=== PATIENT | female | born 1980 | race Caucasian/White ===

== ENCOUNTER 2019-05-08 19:01 | Inpatient (IN) | payer MEDICAID, OTHER ==
[~2019-05-08] VITALS: Ht 162.6 cm; Wt 125.0 kg
[2019-05-08] MEDS ORDERED: VANCOMYCIN 1 GM (PMX) 250 ML IVPB ONE (20:30)
[2019-05-08] MEDS ORDERED: CEFEPIME 2GM/50 ML (PMX) 50 ML IVPB STA (20:30)
[2019-05-08] MEDS ORDERED: SODIUM CHLORIDE 0.9% 1L BAG IV* STA (20:30)
[2019-05-08] MEDS ORDERED: IOHEXOL 100 ML ONE (22:10)
[2019-05-08] MEDS ORDERED: SOD CHLORIDE 0.9% 100 ML ONE (22:10)
[2019-05-08] MEDS ORDERED: ONDANSETRON 4 MG INJ ONE (22:28)
[2019-05-08] MEDS ORDERED: DEXAMETHASONE 10 MG/ML 1 ML INJ IV STA (23:11)
[2019-05-08] MEDS ORDERED: CEFTRIAXONE 2 GM/50 ML (PMX) 50 ML IVPB STA (23:11)
[2019-05-08] MEDS ORDERED: VANCOMYCIN 1 GM (PMX) 250 ML IVPB STA (23:11)
[2019-05-09] VITALS (44 sets, daily range): BP systolic 120–204; BP diastolic 70–107; PULSE 104–115; RESP 14–33; Ht 162.6 cm; Wt 125.0 kg
[2019-05-09] MEDS ORDERED: DOCUSATE SODIUM 100 MG CAP PO PRN
[2019-05-09] MEDS ORDERED: MAGNESIUM HYDROXIDE 30ML CUP PO PRN
[2019-05-09] MEDS ORDERED: NITROGLYCERIN (SL) 0.4 MG TAB SL PRN
[2019-05-09] MEDS ORDERED: ACETAMINOPHEN 325 MG TAB PO PRN
[2019-05-09] MEDS ORDERED: VANCOMYCIN IV PER PHARMACY XX SCH
[2019-05-09] MEDS ORDERED: ALBUTEROL/IPRATROPIUM (NEB) 3 ML AMP HHN PRN
[2019-05-09] MEDS ORDERED: ONDANSETRON 4 MG INJ IV PRN
[2019-05-09] MEDS ORDERED: LORAZEPAM 2 MG INJ IV PRN
[2019-05-09] MEDS ORDERED: NACL 0.9% 3 ML SYG IV SCH
[2019-05-09] MEDS: hydrALAzine 20 MG INJ IV PRN ×2 (00:26→03:20)
[2019-05-09] MEDS ORDERED: ONDANSETRON 4 MG INJ IV STA (01:54)
[2019-05-09] MEDS ORDERED: LORAZEPAM 2 MG INJ IV ONE ×2 (02:00→06:00)
[2019-05-09] MEDS ORDERED: VANCOMYCIN HCL 1.5 GM in SOD CHLORIDE 0.9% 250 ML IVPB SCH ×4 (02:00)
[2019-05-09] MEDS ORDERED: LABETALOL HCL 20MG INJ IV STA (03:12)
[2019-05-09] MEDS: niCARdipine-NS 0.1MG/ML DRIP 200 ML IV SCH ×5 (03:49→18:38)
--- NOTE | 2019-05-09 03:52 | HP ---
Date/Time of Note Date/Time of Note DATE: 05/09/19 TIME: 03:31 Assessment/Plan VTE Prophylaxis SCD applied (from Nsg): Yes Pharmacological prophylaxis: other Lines/Catheters IV Catheter Type (from Nrsg): Saline Lock Assessment/Plan Hospital Course Assessment and plan: 39-year-old female with unknown past medical history who comes in with decreased p.o. intake, knees, and vomiting for the last 3 to 4 days with signs of questionable left frontal lobe hematoma versus possible meningitis or encephalitis based on overall brain scan results. 1. Weakness and decreased p.o. intake: Again symptoms could be secondary to some kind of infectious process in the brain i.e. encephalitis or meningitis. There is also concern of left frontal hematoma. -Continue neurochecks, follow-up TSH A1c lipid panel, isolation room -Hold all anticoagulants for now, continue IV fluids and broad-spectrum antibiotics including Rocephin and vancomycin, also Decadron and rifampin have been ordered -Follow final culture results, continue IV fluids and we will also obtain ID and neurology consult for further investigation -MRI brain with and without contrast has been recommended and we will order that to be performed this morning 2. Hypertension + tachycardia: Again symptoms could be secondary to a bleeding process in the brain, or secondary to infectious process in the brain -Again we will place patient on both labetalol and hydralazine blood pressure medicines to keep the systolic blood pressure was 160 -Continue IV fluids and monitor heart rate 3. DVT prophylaxis: SCDs Result Diagram: 05/08/19192105/08/191921 Results 24hrs Laboratory Tests Test 05/08/19 19:07 05/08/19 19:22 05/08/19 19:42 05/08/19 19:43 Bedside Glucose 186 199 White Blood Count 7.1 Red Blood Count 5.73 H Hemoglobin 16.4 H Hematocrit 49.7 H Mean Corpuscular 86.7 Volume Mean Corpuscular 28.6 L Hemoglobin Mean Corpuscular 33.0 Hemoglobin Concent Red Cell 13.1 Distribution Width Platelet Count 233 Mean Platelet 11.4 H Volume Immature 0.300 Granulocytes % Neutrophils % 71.9 Lymphocytes % 20.7 Monocytes % 6.4 Eosinophils % 0.3 Basophils % 0.4 Nucleated Red 0.0 Blood Cells % Immature 0.020 Granulocytes # Neutrophils # 5.1 Lymphocytes # 1.5 Monocytes # 0.5 Eosinophils # 0.0 Basophils # 0.0 Nucleated Red 0.0 Blood Cells # Prothrombin Time 12.7 Prothrombin Time 1.0 Ratio INR International 0.94 Normalized Ratio Activated 28.[address] Time Sodium Level 135 Potassium Level 3.3 L Chloride Level 95 L Carbon Dioxide 31 Level Anion Gap 9 Blood Urea 10 Nitrogen Creatinine 0.82 Est Glomerular > 60 Filtrat Rate mL/min Glucose Level 214 Calcium Level 9.5 Total Bilirubin 1.0 Direct Bilirubin 0.00 Indirect Bilirubin 1.0 Aspartate Amino 25 Transf (AST/SGOT) Alanine 21 Aminotransferase ( ALT/SGPT) Alkaline 80 Phosphatase Troponin I 0.034 Total Protein 7.4 Albumin 4.1 Globulin 3.30 H Albumin/Globulin 1.24 Ratio Urine Color YELLOW Urine Clarity SLIGHTLY CLOUDY A Urine pH 8.0 Urine Specific 1.011 [place] Urine Ketones NEGATIVE Urine Nitrite NEGATIVE Urine Bilirubin NEGATIVE Urine Urobilinogen NEGATIVE Urine Leukocyte NEGATIVE Esterase Urine Microscopic 0 RBC Urine Microscopic 1 WBC Urine Squamous FEW Epithelial Cells Urine Hemoglobin NEGATIVE Urine Glucose 2+ H Urine Total 3+ H Protein Urine Opiates Negative Screen Urine Barbiturates Negative Urine Amphetamines Negative Screen Urine Negative Benzodiazepines Screen Urine Cocaine Negative Screen Urine Cannabinoids Negative Test 05/08/19 20:04 05/09/19 01:26 POC Venous Lactate 1.7 Prothrombin Time 13.7 Prothrombin Time 1.1 Ratio INR International 1.04 Normalized Ratio Activated 28.[address] Time Lactic Acid Level 1.6 HPI/ROS Admit Date/Time Admit Date/Time Hx of Present Illness 39-year-old female with unknown past medical history who comes in today with decreased p.o. intake. Patient's also been vomiting for the last 3 to 4 days and also been having weakness symptoms. No significant mention is obtained from the ER documentation as the patient is presently unable to provide full HPI at this time. When she came in she was found with heart rate in the 110s and she was hypotensive and received 3 L of normal saline IV fluid in the ER. Today she had a head CT performed that initially showed signs of a left frontal lobe intracranial hemorrhage, along with diffuse, pronounced white matter hypodensity in the supratentorial brain, most prominent in the frontal and parietal lobes. F indings are nonspecific, but can be seen with an infectious or inflammatory process, per radiologist. Based on this information a call was made out to the neurosurgeon for further input. Patient also received broad-spectrum antibiotics as there is also concern, based on neurosurgery assessment, that this in fact may be some kind of meningitis or encephalitis. Patient also now ordered for IV steroids and rifampin as well. Full review of systems cannot be obtained at this time. PMH/Family/Social Past Medical History Medications Current Medications IV Flush (NS 3 ml) 3 ml PER PROTOCOL IV ; Start 05/09/19 at 00:00 Ondansetron HCl (Zofran Inj) 4 mg Q6H PRN IV NAUSEA/VOMITING; Start 05/09/19 at 00:00 Acetaminophen (Tylenol Tab) 650 mg Q6H PRN PO .PAIN 1-3 OR TEMP; Start 05/09/19 at 00:00 Acetaminophen/ Hydrocodone Bitart ([place] (5/325)) 1 tab Q6H PRN PO .MOD PAIN 4- 6; Start 05/09/19 at 00:00 Morphine Sulfate (morphine) 2 mg Q4H PRN IV .SEVERE PAIN 7-10; Start 05/09/19 at 00:00 Docusate Sodium (Colace) 100 mg Q12H PRN PO .CONSTIPATION; Start 05/09/19 at 00:00 Magnesium Hydroxide (Milk Of Mag) 30 ml DAILY PRN PO .CONSTIPATION; Start 05/09/19 at 00:00 Pantoprazole (Protonix Iv) 40 mg DAILY@06 IV ; Start 05/09/19 at 06:00 Sodium Chloride 1,000 ml @ 75 mls/hr [id number] IV ; Start 05/08/19 at 23:44 Lorazepam (Ativan) 0.5 mg Q6H PRN IV ANXIETY; Start 05/09/19 at 00:00 Albuterol/ Ipratropium (Duoneb) 3 ml Q4H RESP THERAPY PRN HHN SHORTNESS OF BREATH; Start 05/09/19 at 00:00 Vancomycin HCl (Vanco Iv Per Pharmacy) VANCOMYCIN PER PHARMACY NOTE XX ; Start 05/09/19 at 00:00 Hydralazine HCl (Apresoline) 10 mg Q6H PRN IV ELEVATED BLOOD PRESSURE Last administered on 05/09/19at 03:20; Admin Dose 10 MG; Start 05/09/19 at 00:00 Ceftriaxone Sodium 50 ml @ 100 mls/hr Q24H IVPB ; Start 05/09/19 at 09:00 Nitroglycerin (Nitroglycerin (Sl Tab) 0.4 Mg) 1 tab Q5M PRN SL ANGINA; Start 05/09/19 at 00:00 Vancomycin HCl 1.5 gm/Sodium Chloride 250 ml @ 83.333 mls/ hr ONCE IVPB Last administered on 05/09/19at 02:07; Admin Dose 83.333 MLS/HR; Start 05/09/19 at 02:00; Stop 05/09/19 at 04:59 Vancomycin HCl 2 gm/Sodium Chloride 500 ml @ 125 mls/hr Q12H IVPB ; Start 05/09/19 at 14:00 Coded Allergies: No Known Allergy (Unverified , 02/03/14) Social History Smoking Status: Never smoker Exam/Review of Systems Vital Signs Vitals Vital Signs Date Temp Pulse Resp B/P (MAP) Pulse Ox O2 O2 Flow FiO2 Time Delivery Rate 05/09/19 117 26 166/133 98 Room Air 00:22 (144) 05/08/19 97.5 19:40 Exam Exam Gen: Lying in bed, lethargic Head: Atraumatic. Eyes: Normal Conjunctiva. ENT: Normal External Ears, Nose and Mouth. Neck: Full range of motion. No meningismus. Resp: Clear to auscultation bilaterally. Cardio: Tachycardic heart rate Abd: Soft, nondistended, normal bowel sounds, non tender. Ext: No lower extremity edema bilaterally Neuro: Unable to fully assess at this time given patient's lethargy DAMIEN CHOUDHARY May 09, 2019 03:41
[2019-05-09] MEDS ORDERED: RIFAMPIN 600 MG in SOD CHLORIDE 0.9% 100 ML IVPB SCH (04:00)
[2019-05-09] MEDS: CEFTRIAXONE 2 GM/50 ML (PMX) 50 ML IVPB SCH ×2 (04:22→16:34)
[2019-05-09] MEDS: DEXAMETHASONE 10 MG/ML 1 ML INJ IV SCH ×4 (05:27→21:43)
[2019-05-09] MEDS ORDERED: LEVETIRACETAM 1000 MG (PMX) 100 ML IVPB ONE (06:00)
[2019-05-09] MEDS ORDERED: FAMO20TA18 PO (06:25)
[2019-05-09] MEDS ORDERED: METF100010 PO (06:25)
[2019-05-09] MEDS ORDERED: GLIM2TAB PO (06:26)
[2019-05-09] MEDS ORDERED: LISI-471 PO (06:26)
[2019-05-09] MEDS ORDERED: HYDR100T25 PO (06:26)
[2019-05-09] MEDS: SOD CHLORIDE 0.45% 1,000 ML IV SCH ×2 (07:13→15:18)
[2019-05-09] MEDS: PANTOPRAZOLE 40 MG INJ IV SCH (07:13)
[2019-05-09] MEDS ORDERED: CEFTRIAXONE 1 GM/50 ML (PMX) 50 ML IVPB SCH (09:00)
[2019-05-09] MEDS ORDERED: HALOPERIDOL 5 MG INJ IM ONE (10:00)
--- NOTE | 2019-05-09 10:13 | QN ---
Documentation Comment She was signed out to me by Dr. Fernandez the overnight physician. The patient has been in the emergency department for 14 hours waiting for an ICU bed. The patient is altered and tachypneic. The patient was seen by neurology who has recommended interventional radiology lumbar puncture which has been ordered. The patient is critically ill at this time. She is tachypneic but her ABG is showing compensation for likely metabolic acidosis. I would avoid intubation at this time as I believe the patient is compensating with her respiratory rate. Observation Note: Time: 4 hours Family Hx: Unable to obtain Evaluation: Multiple exams showed improving symptoms and no evidence of clinical decompensation. FRANCO LARIOS MD May 09, 2019 10:13
--- NOTE | 2019-05-09 10:29 | PN ---
Date/Time of Note Date/Time of Note DATE: 05/09/19 TIME: 10:24 Assessment/Plan VTE Prophylaxis SCD applied (from Nsg): Yes Pharmacological prophylaxis: NA/contraindicated Pharm contraindication: bleeding Lines/Catheters IV Catheter Type (from Nrsg): Saline Lock Assessment/Plan Assessment/Plan 39-year-old morbidly obese woman with unknown past medical history who comes in with decreased p.o. intake, nausea and vomiting for the last 3 to 4 days with signs of questionable left frontal lobe hematoma versus possible meningitis or encephalitis based on overall brain scan results. #Lethargy #Impending respiratory failure - Due to patient's encephalopathy (GCS 8), status of boarding in the ED in an unmonitored room, will plan for intubation for impending respiratory failure #Encephalopathy - Empiric meningitis/encephalitis treatment: Vanco, ceftriaxone, acyclovir. - LP by radiology due to massive obesity. - Decadron also ordered on admission. - Pending MRI brain. - CT shows possible left frontal bleed. # Hypertension + tachycardia: - Again symptoms could be secondary to a bleeding process in the brain, or secondary to infectious process in the brain - Again we will place patient on both labetalol and hydralazine blood pressure medicines to keep the systolic blood pressure was 160 - Continue IV fluids and monitor heart rate # DVT prophylaxis: SCDs Result Diagram: 05/09/1944905/09/19449 Subjective 24 Hr Interval Summary Free Text/Dictation Patient seen while boarding in ICU. In droplet isolation room. Patient is lethargic, minimally responsive to pain. Exam/Review of Systems Exam Vitals Vital Signs Date Temp Pulse Resp B/P (MAP) Pulse Ox O2 O2 Flow FiO2 Time Delivery Rate 05/09/19 97.0 106 35 160/109 98 Nasal 4.0 10:17 (126) Cannula Exam Gen: Morbidly obese woman lying supine in [place], lethargic. Eyes: Normal Conjunctiva, closed. ENT: Normal External Ears, Nose and Mouth. Moist mucous membranes. Neck: Full range of motion. No meningismus. No lymphadenopathy. Resp: Clear to auscultation bilaterally. Cardio: Tachycardic heart rate, no murmurs appreciated. Abd: Soft, obese, nondistended, normal bowel sounds Ext: No lower extremity edema bilaterally Neuro: Opens eyes to pain only. Nonverbal. Localizes pain with both arms. GCS 8. Results Results 24hrs Laboratory Tests Test 05/08/19 19:07 05/08/19 19:22 05/08/19 19:42 05/08/19 19:43 Bedside Glucose 186 199 White Blood Count 7.1 Red Blood Count 5.73 H Hemoglobin 16.4 H Hematocrit 49.7 H Mean Corpuscular 86.7 Volume Mean Corpuscular 28.6 L Hemoglobin Mean Corpuscular 33.0 Hemoglobin Concen t Red Cell 13.1 Distribution Width Platelet Count 233 Mean Platelet 11.4 H Volume Immature 0.300 Granulocytes % Neutrophils % 71.9 Lymphocytes % 20.7 Monocytes % 6.4 Eosinophils % 0.3 Basophils % 0.4 Nucleated Red 0.0 Blood Cells % Immature 0.020 Granulocytes # Neutrophils # 5.1 Lymphocytes # 1.5 Monocytes # 0.5 Eosinophils # 0.0 Basophils # 0.0 Nucleated Red 0.0 Blood Cells # Prothrombin Time 12.7 Prothrombin Time 1.0 Ratio INR International 0.94 Normalized Ratio Activated 28.1 Partial Thrombopl ast Time Sodium Level 135 Potassium Level 3.3 L Chloride Level 95 L Carbon Dioxide 31 Level Anion Gap 9 Blood Urea 10 Nitrogen Creatinine 0.82 Est Glomerular > 60 Filtrat Rate mL/min Glucose Level 214 Calcium Level 9.5 Total Bilirubin 1.0 Direct Bilirubin 0.00 Indirect 1.0 Bilirubin Aspartate Amino 25 Transf (AST/SGOT) Alanine 21 Aminotransferase (ALT/SGPT) Alkaline 80 Phosphatase Troponin I 0.034 Total Protein 7.4 Albumin 4.1 Globulin 3.30 H Albumin/Globulin 1.24 Ratio Urine Color YELLOW Urine Clarity SLIGHTLY CLOUDY A Urine pH 8.0 Urine Specific 1.011 [place] Urine Ketones NEGATIVE Urine Nitrite NEGATIVE Urine Bilirubin NEGATIVE Urine NEGATIVE Urobilinogen Urine Leukocyte NEGATIVE Esterase Urine Microscopic 0 RBC Urine Microscopic 1 WBC Urine Squamous FEW Epithelial Cells Urine Hemoglobin NEGATIVE Urine Glucose 2+ H Urine Total 3+ H Protein Urine Opiates Negative Screen Urine Negative Barbiturates Urine Negative Amphetamines Screen Urine Negative Benzodiazepines Screen Urine Cocaine Negative Screen Urine Negative Cannabinoids Test 05/08/19 20:04 05/09/19 01:26 05/09/19 04:50 05/09/19 07:23 POC Venous 1.7 Lactate Prothrombin Time 13.7 Prothrombin Time 1.1 Ratio INR International 1.04 Normalized Ratio Activated 28.6 Partial Thrombopl ast Time Lactic Acid Level 1.6 White Blood Count 9.0 # Red Blood Count 5.90 H Hemoglobin 16.7 H Hematocrit 51.4 H Mean Corpuscular 87.1 Volume Mean Corpuscular 28.3 L Hemoglobin Mean Corpuscular 32.5 Hemoglobin Concen t Red Cell 13.1 Distribution Width Platelet Count 224 Mean Platelet 11.2 H Volume Immature 2.800 H Granulocytes % Neutrophils % 87.2 H Lymphocytes % 8.2 L Monocytes % 1.3 Eosinophils % 0.1 Basophils % 0.4 Nucleated Red 0.0 Blood Cells % Immature 0.250 H Granulocytes # Neutrophils # 7.8 H Lymphocytes # 0.7 L Monocytes # 0.1 L Eosinophils # 0.0 Basophils # 0.0 Nucleated Red 0.0 Blood Cells # Sodium Level 139 Potassium Level 3.4 L Chloride Level 105 # Carbon Dioxide 22 Level Anion Gap 12 Blood Urea 10 Nitrogen Creatinine 0.73 Est Glomerular > 60 Filtrat Rate mL/min Glucose Level 309 H Hemoglobin A1c 7.8 H Calcium Level 8.9 Phosphorus Level 2.8 Magnesium Level 1.7 Triglycerides 151 H Level Cholesterol Level 215 H LDL Cholesterol, 140 Calculated HDL Cholesterol 45 Cholesterol/HDL 4.7 Ratio Thyroid 1.920 Stimulating Hormone (TSH) Salicylates Level < 1.0 L Acetaminophen < 10.0 L Level Ethyl Alcohol < 10.0 H Level Blood Gas Blood arterial Specimen Source Arterial Blood 05/09/2019 7:26:07 Date Drawn AM Arterial Blood pH 7.443 (Temp corrected) Arterial Blood 31.0 L pCO2 (Temp correct) Arterial Blood 157.0 H pO2 (Temp corrected) Arterial Blood 20.7 L HCO3 Arterial Blood -2.0 Base Excess Arterial Blood 98.9 H Oxygen Saturation Kiran Test ACCEPTAB Arterial Blood Right Radial Gas Puncture Site Arterial 0 Blood Carboxyhemo globin Arterial Blood 0.5 Methemoglobin Blood Gas A-a O2 42.1 H Differential Oxyhemoglobin 98.4 Percent Blood Gas 37.0 Temperature Blood Gas NASAL CANNULA Modality FiO2 33.0 Blood Gas Notified Whom Blood Gas 05/09/2019 7:31:09 Notified Time AM Medications Medication Current Medications IV Flush (NS 3 ml) 3 ml PER PROTOCOL IV ; Start 05/09/19 at 00:00 Ondansetron HCl (Zofran Inj) 4 mg Q6H PRN IV NAUSEA/VOMITING; Start 05/09/19 at 00:00 Acetaminophen (Tylenol Tab) 650 mg Q6H PRN PO .PAIN 1-3 OR TEMP; Start 05/09/19 at 00:00 Acetaminophen/ Hydrocodone Bitart ([place] (5/325)) 1 tab Q6H PRN PO .MOD PAIN 4- 6; Start 05/09/19 at 00:00 Morphine Sulfate (morphine) 2 mg Q4H PRN IV .SEVERE PAIN 7-10; Start 05/09/19 at 00:00 Docusate Sodium (Colace) 100 mg Q12H PRN PO .CONSTIPATION; Start 05/09/19 at 00:00 Magnesium Hydroxide (Milk Of Mag) 30 ml DAILY PRN PO .CONSTIPATION; Start 05/09/19 at 00:00 Pantoprazole (Protonix Iv) 40 mg DAILY@06 IV Last administered on 05/09/19at 07 :13; Admin Dose 40 MG; Start 05/09/19 at 06:00 Sodium Chloride 1,000 ml @ 75 mls/hr [id number] IV Last administered on 05/09/19at 07:13; Admin Dose 75 MLS/HR; Start 05/08/19 at 23:44 Lorazepam (Ativan) 0.5 mg Q6H PRN IV ANXIETY; Start 05/09/19 at 00:00 Albuterol/ Ipratropium (Duoneb) 3 ml Q4H RESP THERAPY PRN HHN SHORTNESS OF BREATH; Start 05/09/19 at 00:00 Vancomycin HCl (Vanco Iv Per Pharmacy) VANCOMYCIN PER PHARMACY NOTE XX ; Start 05/09/19 at 00:00 Hydralazine HCl (Apresoline) 10 mg Q6H PRN IV ELEVATED BLOOD PRESSURE Last administered on 05/09/19at 03:20; Admin Dose 10 MG; Start 05/09/19 at 00:00 Nitroglycerin (Nitroglycerin (Sl Tab) 0.4 Mg) 1 tab Q5M PRN SL ANGINA; Start 05/09/19 at 00:00 Vancomycin HCl 2 gm/Sodium Chloride 500 ml @ 125 mls/hr Q12H IVPB ; Start 05/09/19 at 14:00 Nicardipine HCl 200 ml @ 0 mls/hr TITRATE IV Last administered on 05/09/19at 08:58; Admin Dose 100 MLS/HR; Start 05/09/19 at 04:00 Ceftriaxone Sodium 50 ml @ 100 mls/hr Q12H IVPB Last administered on 05/09/19at 04:22; Admin Dose 100 MLS/HR; Start 05/09/19 at 03:30 Dexamethasone (Decadron) 10 mg Q6H IV Last administered on 05/09/19at 09:01; Admin Dose 10 MG; Start 05/09/19 at 04:00; Stop 05/10/19 at 03:30 Labetalol HCl (Labetalol) 10 mg Q6H PRN IV sys bp > 160; Start 05/09/19 at 05:00 DAVID QUIÑONEZ MD May 09, 2019 10:29
[2019-05-09] MEDS ORDERED: PROPOFOL 100 ML IV STA (10:42)
--- NOTE | 2019-05-09 10:53 | PN ---
Date/Time of Note Date/Time of Note DATE: 05/09/19 TIME: 10:53 Copies To: Assessment/Plan Date of progress note: 05/08/2019 Requesting physician: Dr. Fernandez with the emergency department I was contacted by Dr. Fernandez regarding this patient who is a 39-year-old female with unclear past medical history. Apparently the patient for the past few days has not been "her normal self." She has not been brought to the emergency department for altered level of consciousness. As part of workup the patient was found to have a small left frontal hematoma and neurosurgery is being consulted for that. There is no reported history of trauma to her head, loss of consciousness, convulsions or seizures. Dr. Fernandez with the emergency department asked me to review the patient's CT of the head. The CT of the head reveals a relatively small left frontal hematoma without significant focal mass- effect or midline shift. More significantly the patient has diffuse hyperdensity involving the subcortical white matter bilaterally as well as the brainstem of unknown etiology. There is no evidence of hydrocephalus. The basal cisterns are open. At my request, a CT angiogram of the head has also been done that does not show any evidence of an underlying vascular lesion such as an AVM. In light of the above findings, there is no acute neurosurgical intervention indicated. However, I would recommend urgent neurology consultation for further evaluation and workup for possible underlying infection or inflammatory condition. Dr. Wheatley also agrees with this plan. FABRICE DELATORRE MD May 09, 2019 10:53
[2019-05-09] MEDS ORDERED: FENTAnyl (DRIP) 1000 mcg/100mL 100 ML IV ONE (11:00)
[2019-05-09] MEDS ORDERED: SUCCINYLCHOLINE CHLORIDE 100 MG/5 ML SYG IV ONE (11:00)
[2019-05-09] MEDS ORDERED: ETOMIDATE 20 MG INJ IV ONE (11:00)
[2019-05-09] MEDS: ACYCLOVIR 600 MG in DEXTROSE 5% 100 ML IVPB SCH ×2 (12:01→18:37)
--- NOTE | 2019-05-09 12:09 | CONSI ---
Assessment/Plan Assessment/Plan Assessment/Plan (Recall) 39 F c/ reported Hx of DM2, who presents for evaluation of multiple complaints, including lethargy and GI Sx.. Mildly hypothermic on presentation.. 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 Head CT is notable for a left frontal hyperdensity, suspicious for hemor rhage...and diffuse white matter hypointensity of uncertain significance. CTA is unremarkable. P: LP for CSF evaluation Broad spectrum antimicrobial coverage pending the above EEG to evaluate for epileptiform activity; hold Keppra for now Ativan iv prn prolonged seizure > 5 min Limit other sedating medications where possible MRI brain when medically able Add B1, B12, ammonia Aggressive BP control to goal SBP < 160 Hold antiplatelets/anticoagulants in the short-term Other management and supportive care per primary Will follow clinically Consultation Date/Type/Reason Admit Date/Time Type of Consult Neurology Reason for Consultation ams Requesting Provider: DAMIEN CHOUDHARY Date/Time of Note DATE: 05/09/19 TIME: 11:59 Hx of Present Illness Patient is unable to contribute a Hx.. It is elsewhere noted: 39-year-old female with unknown past medical history who comes in today with decreased p.o. intake. Patient's also been vomiting for the last 3 to 4 days and also been having weakness symptoms. No significant mention is obtained from the ER documentation as the patient is presently unable to provide full HPI at this time. When she came in she was found with heart rate in the 110s and she was hypotensive and received 3 L of normal saline IV fluid in the ER. Today she had a head CT performed that initially showed signs of a left frontal lobe intracranial hemorrhage, along with diffuse, pronounced white matter hypodensity in the supratentorial brain, most prominent in the frontal and parietal lobes. Findings are nonspecific, but can be seen with an infectious or inflammatory process, per radiologist. Based on this information a call was made out to the neurosurgeon for further input. Patient also received broad-spectrum antib iotics as there is also concern, based on neurosurgery assessment, that this in fact may be some kind of meningitis or encephalitis. Patient also now ordered for IV steroids and rifampin as well. Full review of systems cannot be obtained at this time. Limited by ams Objective Exam Vitals Vital Signs Date Temp Pulse Resp B/P (MAP) Pulse Ox O2 O2 Flow FiO2 Time Delivery Rate 05/09/19 109 21 163/83 98 Nasal 4.0 11:46 (109) Cannula 05/09/19 100 11:08 05/09/19 97.0 10:17 Exam PE: Gen Appearance: No Apparent Distress HEENT: Diaphoretic... Cardiovascular: Tachycardic Abdomen: Soft Extremities: Dry NE: The patient was obtunded and nonverbal. Cranial nerve examination was limited by mental status. Pupils were equal and reactive to light. There was no afferent pupillary defect. Funduscopic examination was limited. Face was grossly symmetric, w/ present corneal and cough reflexes. Tone was normal. Muscle bulk was normal. I did not see fasciculations. The patient withdrew to noxious stimulation x 4. Coordination and gait testing was limited by mental status. Arm and leg reflexes were within normal limits and symmetric. Skinner's sign was absent. Plantar responses were flexor. Results Result Diagram: 05/09/19 0450 05/09/19 0450 Results 24hrs Laboratory Tests Test 05/08/19 19:07 05/08/19 19:22 05/08/19 19:42 05/08/19 19:43 Bedside Glucose 186 199 White Blood 7.1 Count Red Blood Count 5.73 H Hemoglobin 16.4 H Hematocrit 49.7 H Mean Corpuscular 86.7 Volume Mean Corpuscular 28.6 L Hemoglobin Mean Corpuscular 33.0 Hemoglobin Dominique nt Red Cell 13.1 Distribution Width Platelet Count 233 Mean Platelet 11.4 H Volume Immature 0.300 Granulocytes % Neutrophils % 71.9 Lymphocytes % 20.7 Monocytes % 6.4 Eosinophils % 0.3 Basophils % 0.4 Nucleated Red 0.0 Blood Cells % Immature 0.020 Granulocytes # Neutrophils # 5.1 Lymphocytes # 1.5 Monocytes # 0.5 Eosinophils # 0.0 Basophils # 0.0 Nucleated Red 0.0 Blood Cells # Prothrombin Time 12.7 Prothrombin Time 1.0 Ratio INR 0.94 International Normalized Ratio Activated 28.1 Partial Thrombop last Time Sodium Level 135 Potassium Level 3.3 L Chloride Level 95 L Carbon Dioxide 31 Level Anion Gap 9 Blood Urea 10 Nitrogen Creatinine 0.82 Est Glomerular > 60 Filtrat Rate mL/min Glucose Level 214 Calcium Level 9.5 Total Bilirubin 1.0 Direct Bilirubin 0.00 Indirect 1.0 Bilirubin Aspartate Amino 25 Transf (AST/SGOT ) Alanine 21 Aminotransferase (ALT/SGPT) Alkaline 80 Phosphatase Troponin I 0.034 Total Protein 7.4 Albumin 4.1 Globulin 3.30 H Albumin/Globulin 1.24 Ratio Urine Color YELLOW Urine Clarity SLIGHTLY CLOUDY A Urine pH 8.0 Urine Specific 1.011 [place] Urine Ketones NEGATIVE Urine Nitrite NEGATIVE Urine Bilirubin NEGATIVE Urine NEGATIVE Urobilinogen Urine Leukocyte NEGATIVE Esterase Urine 0 Microscopic RBC Urine 1 Microscopic WBC Urine Squamous FEW Epithelial Cells Urine Hemoglobin NEGATIVE Urine Glucose 2+ H Urine Total 3+ H Protein Urine Opiates Negative Screen Urine Negative Barbiturates Urine Negative Amphetamines Screen Urine Negative Benzodiazepines Screen Urine Cocaine Negative Screen Urine Negative Cannabinoids Test 05/08/19 20:04 05/09/19 01:26 05/09/19 04:50 05/09/19 07:23 POC Venous 1.7 Lactate Prothrombin Time 13.7 Prothrombin Time 1.1 Ratio INR 1.04 International Normalized Ratio Activated 28.6 Partial Thrombop last Time Lactic Acid 1.6 Level White Blood 9.0 # Count Red Blood Count 5.90 H Hemoglobin 16.7 H Hematocrit 51.4 H Mean Corpuscular 87.1 Volume Mean Corpuscular 28.3 L Hemoglobin Mean Corpuscular 32.5 Hemoglobin Dominique nt Red Cell 13.1 Distribution Width Platelet Count 224 Mean Platelet 11.2 H Volume Immature 2.800 H Granulocytes % Neutrophils % 87.2 H Lymphocytes % 8.2 L Monocytes % 1.3 Eosinophils % 0.1 Basophils % 0.4 Nucleated Red 0.0 Blood Cells % Immature 0.250 H Granulocytes # Neutrophils # 7.8 H Lymphocytes # 0.7 L Monocytes # 0.1 L Eosinophils # 0.0 Basophils # 0.0 Nucleated Red 0.0 Blood Cells # Sodium Level 139 Potassium Level 3.4 L Chloride Level 105 # Carbon Dioxide 22 Level Anion Gap 12 Blood Urea 10 Nitrogen Creatinine 0.73 Est Glomerular > 60 Filtrat Rate mL/min Glucose Level 309 H Hemoglobin A1c 7.8 H Calcium Level 8.9 Phosphorus Level 2.8 Magnesium Level 1.7 Triglycerides 151 H Level Cholesterol 215 H Level LDL Cholesterol, 140 Calculated HDL Cholesterol 45 Cholesterol/HDL 4.7 Ratio Thyroid 1.920 Stimulating Hormone (TSH) Salicylates < 1.0 L Level Acetaminophen < 10.0 L Level Ethyl Alcohol < 10.0 H Level Blood Gas Blood arterial Specimen Source Arterial Blood 05/09/2019 7:26: Date Drawn 07 AM Arterial Blood 7.443 pH (Temp corrected) Arterial Blood 31.0 L pCO2 (Temp correct) Arterial Blood 157.0 H pO2 (Temp corrected) Arterial Blood 20.7 L HCO3 Arterial Blood -2.0 Base Excess Arterial Blood 98.9 H Oxygen Saturatio n Kiran Test ACCEPTAB Arterial Blood Right Radial Gas Puncture Site Arterial 0 Blood Carboxyhem oglobin Arterial Blood 0.5 Methemoglobin Blood Gas A-a O2 42.1 H Differential Oxyhemoglobin 98.4 Percent Blood Gas 37.0 Temperature Blood Gas NASAL CANNULA Modality FiO2 33.0 Blood Gas SM Notified Whom Blood Gas 05/09/2019 7:31: Notified Time 09 AM Test 05/09/19 10:42 05/09/19 11:35 Blood Gas Blood arterial Specimen Source Arterial Blood 05/09/2019 11:17 Date Drawn :50 AM Arterial Blood 7.434 pH (Temp corrected) Arterial Blood 31.2 L pCO2 (Temp correct) Arterial Blood 438.3 H pO2 (Temp corrected) Arterial Blood 20.4 L HCO3 Arterial Blood -2.5 Base Excess Arterial Blood 99.9 H Oxygen Saturatio n Kiran Test ACCEPTAB Arterial Blood Right Radial Gas Puncture Site Arterial 0.4 Blood Carboxyhem oglobin Arterial Blood 0.5 Methemoglobin Blood Gas A-a O2 243.5 H Differential Oxyhemoglobin 99.0 Percent Blood Gas 37.0 Temperature Blood Gas 20.0 Respiration Rate Blood Gas Actual 36 Respiration Rate Blood Gas VENT - AC Modality FiO2 100.0 Blood Gas Tidal 500.0 Volume Blood Gas Low 5.0 PEEP Setting Blood Gas RT Notified Whom Blood Gas 05/09/2019 11:28 Notified Time :26 AM Bedside Glucose 373 H Past Medical History reviewed Home Meds Reported Medications Lisinopril* (Lisinopril*) 20 Mg Tablet, 20 MG PO BID, #30 TAB 05/09/19 Hydralazine Hcl* (Hydralazine Hcl*) 100 Mg Tablet, 100 MG PO Q8, #90 TAB 05/09/19 Glimepiride* (Glimepiride*) 2 Mg Tablet, 2 MG PO WITH BREAKFAST, TAB 05/09/19 Metformin Hcl* (Metformin Hcl*) 1,000 Mg Tablet, 1000 MG PO WITH BREAKFAST DINNE, #60 TAB 05/09/19 Famotidine* (Famotidine*) 20 Mg Tablet, 20 MG PO BID, #60 TAB 05/09/19 Medications Current Medications IV Flush (NS 3 ml) 3 ml PER PROTOCOL IV ; Start 05/09/19 at 00:00 Ondansetron HCl (Zofran Inj) 4 mg Q6H PRN IV NAUSEA/VOMITING; Start 05/09/19 at 00:00 Acetaminophen (Tylenol Tab) 650 mg Q6H PRN PO .PAIN 1-3 OR TEMP; Start 05/09/19 at 00:00 Acetaminophen/ Hydrocodone Bitart ([place] (5/325)) 1 tab Q6H PRN PO .MOD PAIN 4- 6; Start 05/09/19 at 00:00 Morphine Sulfate (morphine) 2 mg Q4H PRN IV .SEVERE PAIN 7-10; Start 05/09/19 at 00:00 Docusate Sodium (Colace) 100 mg Q12H PRN PO .CONSTIPATION; Start 05/09/19 at 00:00 Magnesium Hydroxide (Milk Of Mag) 30 ml DAILY PRN PO .CONSTIPATION; Start 05/09/19 at 00:00 Pantoprazole (Protonix Iv) 40 mg DAILY@06 IV Last administered on 05/09/19at 07:13; Admin Dose 40 MG; Start 05/09/19 at 06:00 Sodium Chloride 1,000 ml @ 75 mls/hr [id number] IV Last administered on 05/09/19at 07:13; Admin Dose 75 MLS/HR; Start 05/08/19 at 23:44 Albuterol/ Ipratropium (Duoneb) 3 ml Q4H RESP THERAPY PRN HHN SHORTNESS OF BREATH; Start 05/09/19 at 00:00 Vancomycin HCl (Vanco Iv Per Pharmacy) VANCOMYCIN PER PHARMACY NOTE XX ; Start 05/09/19 at 00:00 Hydralazine HCl (Apresoline) 10 mg Q6H PRN IV ELEVATED BLOOD PRESSURE Last administered on 05/09/19at 03:20; Admin Dose 10 MG; Start 05/09/19 at 00:00 Nitroglycerin (Nitroglycerin (Sl Tab) 0.4 Mg) 1 tab Q5M PRN SL ANGINA; Start 05/09/19 at 00:00 Vancomycin HCl 2 gm/Sodium Chloride 500 ml @ 125 mls/hr Q12H IVPB ; Start 05/09/19 at 14:00 Nicardipine HCl 200 ml @ 0 mls/hr TITRATE IV Last administered on 05/09/19at 08:58; Admin Dose 100 MLS/HR; Start 05/09/19 at 04:00 Ceftriaxone Sodium 50 ml @ 100 mls/hr Q12H IVPB Last administered on 05/09/19at 04:22; Admin Dose 100 MLS/HR; Start 05/09/19 at 03:30 Dexamethasone (Decadron) 10 mg Q6H IV Last administered on 05/09/19at 09:01; Admin Dose 10 MG; Start 05/09/19 at 04:00; Stop 05/10/19 at 03:30 Labetalol HCl (Labetalol) 10 mg Q6H PRN IV sys bp > 160; Start 05/09/19 at 05:00 Acyclovir 600 mg/ Dextrose 100 ml @ 100 mls/hr Q8H IVPB ; Start 05/09/19 at 10:30 Propofol 100 ml @ 3.75 mls/hr ONCE STAT IV Last administered on 05/09/19at 10:59; Admin Dose 3.75 MLS/HR; Start 05/09/19 at 10:42; Stop 05/10/19 at 13:21 Fentanyl 100 ml @ 5 mls/hr CONTINUOUS DRIP ONCE IV ; Start 05/09/19 at 11:00; Stop 05/10/19 at 06:59 Allergies: Coded Allergies: No Known Allergy (Unverified , 05/09/19) Social History Smoking Status: Never smoker JOSÉ TORO May 09, 2019 12:09
[2019-05-09] MEDS ORDERED: VANCOMYCIN HCL 2 GM in SOD CHLORIDE 0.9% 500 ML IVPB SCH (14:00)
[2019-05-09] MEDS: VANCOMYCIN HCL 2 GM in SOD CHLORIDE 0.9% 500 ML IVPB SCH (15:42)
--- NOTE | 2019-05-09 15:55 | CONS ---
DATE OF ADMISSION: 05/08/2019 DATE OF CONSULTATION: 05/09/2019 TYPE OF CONSULTATION: Infectious Disease. REASON FOR CONSULTATION: Antibiotic management. HISTORY OF PRESENT ILLNESS: Genet Foley is a 39-year-old female with a known past medic al history who comes in with decreased oral intake as well as vomiting for the last 3 or 4 days. She feels very weak. She was found to have a heart rate in the 110s, was hypotensive and received 3 lit ers of normal saline in the ER. She had a CT scan performed of her head, which showed signs of the l eft frontal lobe intracranial hemorrhage along with diffuse pronounced white matter hypodensity in th e supratentorial brain, most prominent in the frontal and parietal lobes. Findings are nonspecific b ut can be seen with an infectious or inflammatory process, per radiologist. Based on this, a call wa s made to neurosurgeon for further input. The patient was also started on broad-spectrum antibiotic therapy. On admission, white count was 7.1, H and H of 16.4 and 49.7, platelet count 233,000. BUN a nd creatinine 10/0.82, and the glucose was 214. So, the patient has weakness and decreased oral inta ke. We have to rule out an infectious process in the brain, encephalitis or meningitis. The patient was seen by Dr. Parkinson, neurosurgery. She was found to have a small left frontal hematoma. There is no reported history of trauma, loss of consciousness, convulsions or seizures. CT scan of the head reveals a relatively small left frontal hematoma without significant focal mass effect or midline yasemin ft. More significantly, the patient has diffuse hypodensity involving the subcortical white matter b ilaterally as well as the brainstem of unknown etiology. There is no evidence of hydrocephalus. The basal cisterns are open. A CT angiogram of the head has also been done, does not show any evidence of any underlying vascular lesion such as an AVM. There is no acute neurosurgical intervention indic ated. He recommended urgent neurology consultation for further evaluation and workup of underlying d isease. The patient was seen by Dr. Laurent in neurology. The patient was noted to be obtunded and no nverbal. Pupils were equal, round, reactive to light. White count was 9000 as noted previously with 72% neutrophils. Urinalysis was negative. IMPRESSION AND PLAN: The patient was started on vancomycin and ceftriaxone for possible meningitis. The patient also had IV steroids and rifampin added to her regimen. At this point, it is unclear wh at the etiology of her problem is, and she may require a lumbar puncture in order to delineate what i s going on. Her toxicology screen was fairly negative. [facility] as well as to Dr. Parkinson and Dr. Laurent. Dictated By: CARLOS GORDON MD, JD/ALISHA Conf#: [id number] DID#: [id number]
[2019-05-09] MEDS ORDERED: GLUCAGON 1 MG INJ IM PRN (17:00)
[2019-05-09] MEDS ORDERED: GLUCOSE GEL 15 GRAM TUBE BUCCAL PRN (17:00)
[2019-05-09] MEDS ORDERED: GLUCOSE GEL 15 GRAM TUBE PO PRN ×2 (17:00)
[2019-05-09] MEDS ORDERED: DEXTROSE 50% 50 ML SYRINGE IV PRN ×2 (17:00)
[2019-05-09] MEDS: PROPOFOL 100 ML IV SCH ×3 (17:06→23:47)
[2019-05-09] MEDS: INSULIN ASPART [NOVOLOG] 3 ML PEN SC SCH ×2 (18:29→21:54)
[2019-05-10] VITALS (81 sets, daily range): BP systolic 131–203; BP diastolic 63–104; PULSE 100–127; RESP 15–35
[2019-05-10] MEDS: INSULIN ASPART [NOVOLOG] 3 ML PEN SC SCH ×6 (01:10→21:29)
[2019-05-10] MEDS: ACYCLOVIR 600 MG in DEXTROSE 5% 100 ML IVPB SCH ×2 (01:59→11:21)
[2019-05-10] MEDS: niCARdipine-NS 0.1MG/ML DRIP 200 ML IV SCH ×5 (02:01→18:05)
[2019-05-10] MEDS: CEFTRIAXONE 2 GM/50 ML (PMX) 50 ML IVPB SCH ×2 (03:20→15:28)
[2019-05-10] MEDS: VANCOMYCIN HCL 2 GM in SOD CHLORIDE 0.9% 500 ML IVPB SCH (04:07)
[2019-05-10] MEDS: PROPOFOL 100 ML IV SCH ×4 (04:44→18:17)
[2019-05-10] MEDS: PANTOPRAZOLE 40 MG INJ IV SCH (05:57)
--- NOTE | 2019-05-10 06:45 | EEG ---
EEG NOTE Report Details DATE OF TEST: 05/09/2019 HISTORY: The patient is a 39-year-old F who presents with altered mental status. This EEG is requested to evaluate for seizures. SEDATION: ? CONDITIONS OF RECORDING: This EEG was recorded digitally on the [employer] machine, using the International 10-20 System of electrodes plus anterior temporals and [place]. STATES SAMPLED: Lethargic. FINDINGS: The background is discontinuous though grossly symmetric...predominated by yi ymorphic theta activity. The normal [id number] frequency-amplitude gradient was absent. Photic stimulation does not elicit any definite driving responses or epileptiform discharges. Hyperventilation was not performed. No asymmetries, focal abnormalities or epileptiform discharges were seen. IMPRESSION: Abnormal electroencephalogram due to: diffuse slowing. COMMENT: The slowing of the background indicates diffuse cortical dysfunction of nonspecific etiology. JOSÉ TORO May 10, 2019 06:45
[2019-05-10] MEDS: POTASSIUM CHLORIDE 100 ML IVPB SCH ×2 (09:21→11:23)
--- NOTE | 2019-05-10 09:44 | CONS ---
Assessment/Plan Assessment/Plan Assessment/Plan (Daily) Chest x-ray showing cardiomegaly with pulmonary edema. Difficult to rule out some element of pneumonia. Ventilator settings; assist control of 16, tidal volume 500, PEEP of 5, 30% FiO2. Patient is currently on Cardene drip at 12.5 A/R: 1- intracranial bleed, likely hypertensive in etiology 2- HTN 3- pulmonary edema 4- Aspiration pneumonia? 5- Meningitis? 6- Acute renal injury 7- thrombocytopenia continue current supportive care. F/u CXR in 24 hours. Neurosurgical evaluation pending. Monitor renal function. LP by IR. Prognosis is guarded. 40 min critical care time spent evaluating the patient. Consultation Date/Type/Reason Admit Date/Time Date of Consultation: May 10, 2019 Type of Consult Pulmonary/critical care Patient is a 39-year-old lady who came into the hospital with complaints of nausea vomiting going on for the last 2 days with headache. Upon evaluation patient was extremely hypertensive then developed respiratory failure requiring intubation. Emergent CT imaging of the head was done which is showing intracranial hemorrhage. Patient has remained completely unresponsive. Was started on propofol drip for tachypnea. Past medical history; 1. Hypertension. Medications; reviewed. Allergies; none. Social history, family history, occupational history not available. Review of system; unable to be obtained. General exam; young female, orally intubated, sedated, currently in no distress. Date/Time of Note DATE: 05/10/19 TIME: 09:36 Past Medical History Home Meds Reported Medications Lisinopril* (Lisinopril*) 20 Mg Tablet, 20 MG PO BID, #30 TAB 05/09/19 Hydralazine Hcl* (Hydralazine Hcl*) 100 Mg Tablet, 100 MG PO Q8, #90 TAB 05/09/19 Glimepiride* (Glimepiride*) 2 Mg Tablet, 2 MG PO WITH BREAKFAST, TAB 05/09/19 Metformin Hcl* (Metformin Hcl*) 1,000 Mg Tablet, 1000 MG PO WITH BREAKFAST DINNE, #60 TAB 05/09/19 Famotidine* (Famotidine*) 20 Mg Tablet, 20 MG PO BID, #60 TAB 05/09/19 Medications Current Medications IV Flush (NS 3 ml) 3 ml PER PROTOCOL IV ; Start 05/09/19 at 00:00 Ondansetron HCl (Zofran Inj) 4 mg Q6H PRN IV NAUSEA/VOMITING; Start 05/09/19 at 00:00 Acetaminophen (Tylenol Tab) 650 mg Q6H PRN PO .PAIN 1-3 OR TEMP; Start 05/09/19 at 00:00 Acetaminophen/ Hydrocodone Bitart ([place] (5/325)) 1 tab Q6H PRN PO .MOD PAIN 4- 6; Start 05/09/19 at 00:00 Morphine Sulfate (morphine) 2 mg Q4H PRN IV .SEVERE PAIN 7-10; Start 05/09/19 at 00:00 Docusate Sodium (Colace) 100 mg Q12H PRN PO .CONSTIPATION; Start 05/09/19 at 00:00 Magnesium Hydroxide (Milk Of Mag) 30 ml DAILY PRN PO .CONSTIPATION; Start 05/09/19 at 00:00 Pantoprazole (Protonix Iv) 40 mg DAILY@06 IV Last administered on 05/10/19at 05:57; Admin Dose 40 MG; Start 05/09/19 at 06:00 Sodium Chloride 1,000 ml @ 75 mls/hr [id number] IV Last administered on 05/09/19at 15:18; Admin Dose 75 MLS/HR; Start 05/08/19 at 23:44 Albuterol/ Ipratropium (Duoneb) 3 ml Q4H RESP THERAPY PRN HHN SHORTNESS OF BREATH; Start 05/09/19 at 00:00 Vancomycin HCl (Vanco Iv Per Pharmacy) VANCOMYCIN PER PHARMACY NOTE XX ; Start 05/09/19 at 00:00 Hydralazine HCl (Apresoline) 10 mg Q6H PRN IV ELEVATED BLOOD PRESSURE Last administered on 05/09/19at 03:20; Admin Dose 10 MG; Start 05/09/19 at 00:00 Nitroglycerin (Nitroglycerin (Sl Tab) 0.4 Mg) 1 tab Q5M PRN SL ANGINA; Start 05/09/19 at 00:00 Ceftriaxone Sodium 50 ml @ 100 mls/hr Q12H IVPB Last administered on 05/10/19at 03:20; Admin Dose 100 MLS/HR; Start 05/09/19 at 03:30 Labetalol HCl (Labetalol) 10 mg Q6H PRN IV sys bp > 160; Start 05/09/19 at 05:00 Acyclovir 600 mg/ Dextrose 100 ml @ 100 mls/hr Q8H IVPB Last administered on 05/10/19at 01:59; Admin Dose 100 MLS/HR; Start 05/09/19 at 10:30 Nicardipine HCl 200 ml @ 0 mls/hr TITRATE IV Last administered on 05/10/19at 07:48; Admin Dose 75 MLS/HR; Start 05/09/19 at 14:30 Vancomycin HCl 2 gm/Sodium Chloride 500 ml @ 125 mls/hr Q12H IVPB Last administered on 05/10/19at 04:07; Admin Dose 125 MLS/HR; Start 05/09/19 at 16:00 Insulin Aspart (Novolog Insulin Pen) NOVOLOG *MODERATE* ALGORI... Q4 SC Last administered on 05/10/19at 09:26; Admin Dose 4 UNIT; Start 05/09/19 at 18:00 Miscellaneous Information 1 ea NOTE XX ; Start 05/09/19 at 17:00 Glucose (Glutose) 15 gm Q15M PRN PO DECREASED GLUCOSE; Start 05/09/19 at 17:00 Glucose (Glutose) 22.5 gm Q15M PRN PO DECREASED GLUCOSE; Start 05/09/19 at 17:00 Dextrose (D50w Syringe) 25 ml Q15M PRN IV DECREASED GLUCOSE; Start 05/09/19 at 17:00 Dextrose (D50w Syringe) 50 ml Q15M PRN IV DECREASED GLUCOSE; Start 05/09/19 at 17:00 Glucagon (Glucagen) 1 mg Q15M PRN IM DECREASED GLUCOSE; Start 05/09/19 at 17:00 Glucose (Glutose) 15 gm Q15M PRN BUCCAL DECREASED GLUCOSE; Start 05/09/19 at 17:00 Propofol 100 ml @ 3.75 mls/hr Q12H IV Last administered on 05/10/19at 04:44; Admin Dose 22.5 MLS/HR; Start 05/09/19 at 17:00 Miscellaneous Information (*Rx Drug Level Order Reminder*) VANCO TR LEVEL P RIOR... 1500 ONCE XX ; Start 05/10/19 at 15:00; Stop 05/10/19 at 15:01 Potassium Chloride 100 ml @ 50 mls/hr Q2H IVPB Last administered on 05/10/19at 09:21; Admin Dose 50 MLS/HR; Start 05/10/19 at 09:00; Stop 05/10/19 at 12:59 Allergies: Coded Allergies: No Known Allergy (Unverified , 05/09/19) Social History Smoking Status: Unknown if ever smoked Exam/Review of Systems Exam Vitals Vital Signs Date Temp Pulse Resp B/P (MAP) Pulse Ox O2 O2 Flow FiO2 Time Delivery Rate 05/10/19 22 179/86 98 Mechanical 08:15 (117) Ventilator 05/10/19 99.2 126 08:00 05/10/19 30 08:00 05/09/19 4.0 11:46 Intake and Output 05/09/19 05/09/19 05/10/19 1515:00 23:00 07:00 IntakeIntake Total 256.875 ml 1889.80 ml 1537.50 ml OutputOutput Total 100 ml 300 ml 220 ml BalanceBalance 156.875 ml 1589.80 ml 1317.50 ml Exam H EENT exam; supple neck, no JVD. No lymphadenopathy. Midline trachea. No thyromegaly. Orally intubated. Patient has fair dentition. There is bilateral downward gaze. Pupils are small bilaterally. Chest exam; clear to auscultation. S1-S2 audible, no murmurs. Regular rhythm. Abdomen exam; soft, no organomegaly. Bowel sounds audible. Extremity exam; no peripheral edema. Pulses 1+. MOLDER SWEEP exam; patient sedated but exhibiting occasional posturing. Results Result Diagram: 05/10/19 0537 05/10/19 0537 Results 24hrs Laboratory Tests Test 05/09/19 10:42 05/09/19 11:35 05/09/19 12:35 05/09/19 16:22 Blood Gas Blood arterial Specimen Source Arterial Blood 05/09/2019 11:17: Date Drawn 50 AM Arterial Blood pH 7.434 (Temp corrected) Arterial Blood 31.2 L pCO2 (Temp correct) Arterial Blood 438.3 H pO2 (Temp corrected) Arterial Blood 20.4 L HCO3 Arterial Blood -2.5 Base Excess Arterial Blood 99.9 H Oxygen Saturation Kiran Test ACCEPTAB Arterial Blood Right Radial Gas Puncture Site Arterial 0.4 Blood Carboxyhemo globin Arterial Blood 0.5 Methemoglobin Blood Gas A-a O2 243.5 H Differential Oxyhemoglobin 99.0 Percent Blood Gas 37.0 Temperature Blood Gas 20.0 Respiration Rate Blood Gas Actual 36 Respiration Rate Blood Gas VENT - AC Modality FiO2 100.0 Blood Gas Tidal 500.0 Volume Blood Gas Low 5.0 PEEP Setting Blood Gas RT Notified Whom Blood Gas 05/09/2019 11:28: Notified Time 26 AM Bedside Glucose 373 H 294 H Ammonia < 9 L Vitamin B12 Level 822 Test 05/09/19 18:16 05/09/19 21:35 05/10/19 01:05 05/10/19 05:37 Bedside Glucose 285 H 249 H 206 White Blood Count 15.9 #H Red Blood Count 5.12 Hemoglobin 14.7 Hematocrit 44.2 Mean Corpuscular 86.3 Volume Mean Corpuscular 28.7 L Hemoglobin Mean Corpuscular 33.3 Hemoglobin Concen t Red Cell 13.5 Distribution Width Platelet Count 181 Mean Platelet 11.5 H Volume Immature 0.600 H Granulocytes % Neutrophils % 91.8 H Lymphocytes % 5.0 L Monocytes % 2.5 Eosinophils % 0.0 Basophils % 0.1 Nucleated Red 0.0 Blood Cells % Immature 0.100 H Granulocytes # Neutrophils # 14.6 H Lymphocytes # 0.8 Monocytes # 0.4 Eosinophils # 0.0 Basophils # 0.0 Nucleated Red 0.0 Blood Cells # Sodium Level 138 Potassium Level 3.2 L Chloride Level 105 Carbon Dioxide 24 Level Anion Gap 9 Blood Urea 23 #H Nitrogen Creatinine 1.39 H Est Glomerular 42 L Filtrat Rate mL/min Glucose Level 209 # Calcium Level 9.0 Magnesium Level 1.8 Test 05/10/19 05:45 05/10/19 08:58 Bedside Glucose 196 190 Medications Medication Current Medications IV Flush (NS 3 ml) 3 ml PER PROTOCOL IV ; Start 05/09/19 at 00:00 Ondansetron HCl (Zofran Inj) 4 mg Q6H PRN IV NAUSEA/VOMITING; Start 05/09/19 at 00:00 Acetaminophen (Tylenol Tab) 650 mg Q6H PRN PO .PAIN 1-3 OR TEMP; Start 05/09/19 at 00:00 Acetaminophen/ Hydrocodone Bitart ([place] (5/325)) 1 tab Q6H PRN PO .MOD PAIN 4- 6; Start 05/09/19 at 00:00 Morphine Sulfate (morphine) 2 mg Q4H PRN IV .SEVERE PAIN 7-10; Start 05/09/19 at 00:00 Docusate Sodium (Colace) 100 mg Q12H PRN PO .CONSTIPATION; Start 05/09/19 at 00:00 Magnesium Hydroxide (Milk Of Mag) 30 ml DAILY PRN PO .CONSTIPATION; Start 05/09/19 at 00:00 Pantoprazole (Protonix Iv) 40 mg DAILY@06 IV Last administered on 05/10/19at 05:57; Admin Dose 40 MG; Start 05/09/19 at 06:00 Sodium Chloride 1,000 ml @ 75 mls/hr [id number] IV Last administered on 05/09/19at 15:18; Admin Dose 75 MLS/HR; Start 05/08/19 at 23:44 Albuterol/ Ipratropium (Duoneb) 3 ml Q4H RESP THERAPY PRN HHN SHORTNESS OF BREATH; Start 05/09/19 at 00:00 Vancomycin HCl (Vanco Iv Per Pharmacy) VANCOMYCIN PER PHARMACY NOTE XX ; Start 05/09/19 at 00:00 Hydralazine HCl (Apresoline) 10 mg Q6H PRN IV ELEVATED BLOOD PRESSURE Last administered on 05/09/19at 03:20; Admin Dose 10 MG; Start 05/09/19 at 00:00 Nitroglycerin (Nitroglycerin (Sl Tab) 0.4 Mg) 1 tab Q5M PRN SL ANGINA; Start 05/09/19 at 00:00 Ceftriaxone Sodium 50 ml @ 100 mls/hr Q12H IVPB Last administered on 05/10/19at 03:20; Admin Dose 100 MLS/HR; Start 05/09/19 at 03:30 Labetalol HCl (Labetalol) 10 mg Q6H PRN IV sys bp > 160; Start 05/09/19 at 05:00 Acyclovir 600 mg/ Dextrose 100 ml @ 100 mls/hr Q8H IVPB Last administered on 05/10/19at 01:59; Admin Dose 100 MLS/HR; Start 05/09/19 at 10:30 Nicardipine HCl 200 ml @ 0 mls/hr TITRATE IV Last administered on 05/10/19at 07:48; Admin Dose 75 MLS/HR; Start 05/09/19 at 14:30 Vancomycin HCl 2 gm/Sodium Chloride 500 ml @ 125 mls/hr Q12H IVPB Last administered on 05/10/19at 04:07; Admin Dose 125 MLS/HR; Start 05/09/19 at 16:00 Insulin Aspart (Novolog Insulin Pen) NOVOLOG *MODERATE* ALGORI... Q4 SC Last ad ministered on 05/10/19at 09:26; Admin Dose 4 UNIT; Start 05/09/19 at 18:00 Miscellaneous Information 1 ea NOTE XX ; Start 05/09/19 at 17:00 Glucose (Glutose) 15 gm Q15M PRN PO DECREASED GLUCOSE; Start 05/09/19 at 17:00 Glucose (Glutose) 22.5 gm Q15M PRN PO DECREASED GLUCOSE; Start 05/09/19 at 17:00 Dextrose (D50w Syringe) 25 ml Q15M PRN IV DECREASED GLUCOSE; Start 05/09/19 at 17:00 Dextrose (D50w Syringe) 50 ml Q15M PRN IV DECREASED GLUCOSE; Start 05/09/19 at 17:00 Glucagon (Glucagen) 1 mg Q15M PRN IM DECREASED GLUCOSE; Start 05/09/19 at 17:00 Glucose (Glutose) 15 gm Q15M PRN BUCCAL DECREASED GLUCOSE; Start 05/09/19 at 17:00 Propofol 100 ml @ 3.75 mls/hr Q12H IV Last administered on 05/10/19at 04:44; Admin Dose 22.5 MLS/HR; Start 05/09/19 at 17:00 Miscellaneous Information (*Rx Drug Level Order Reminder*) VANCO TR LEVEL PRIOR... 1500 ONCE XX ; Start 05/10/19 at 15:00; Stop 05/10/19 at 15:01 Potassium Chloride 100 ml @ 50 mls/hr Q2H IVPB Last administered on 05/10/19at 09:21; Admin Dose 50 MLS/HR; Start 05/10/19 at 09:00; Stop 05/10/19 at 12:59 JAYSON WASSERMAN 11, 2019 09:44
[2019-05-10] MEDS: SOD CHLORIDE 0.45% 1,000 ML IV SCH ×2 (09:50→22:45)
--- NOTE | 2019-05-10 11:54 | CONS ---
Assessment/Plan Assessment/Plan Assessment/Plan (Recall) 39 F c/ reported Hx of DM2, who presents for evaluation of multiple complaints, including lethargy and GI Sx.. Mildly hypothermic on presentation.. 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 Head CT is notable for a left frontal hyperdensity, suspicious for hemor rhage...and diffuse white matter hypointensity of uncertain significance. CTA is unremarkable. EEG is without epileptiform activity Ammonia wnl P: LP for CSF evaluation Broad spectrum antimicrobial coverage pending the above MRI brain for further characterization Await B1, B12 Limit sedating medications where possible Aggressive BP control to goal SBP < 160 Hold antiplatelets/anticoagulants in the short-term Other management and supportive care per primary Will follow clinically Consultation Date/Type/Reason Admit Date/Time May 08, 2019 at 23:21 Type of Consult Neurology Reason for Consultation ams Requesting Provider: DAMIEN CHOUDHARY Date/Time of Note DATE: 05/10/19 TIME: 11:50 24 HR Interval Summary Free Text/Dictation Continues icu care Exam/Review of Systems Exam Vitals Vital Signs Date Temp Pulse Resp B/P (MAP) Pulse Ox O2 O2 Flow FiO2 Time Delivery Rate 05/10/19 110 18 138/65 96 11:30 (89) 05/10/19 Mechanical 11:00 Ventilator 05/10/19 30 09:42 05/10/19 99.2 08:00 05/09/19 4.0 11:46 Intake and Output 05/09/19 05/09/19 05/10/19 1515:00 23:00 07:00 IntakeIntake Total 256.875 ml 1889.80 ml 1537.50 ml OutputOutput Total 100 ml 300 ml 220 ml BalanceBalance 156.875 ml 1589.80 ml 1317.50 ml Exam PE: Gen Appearance: No Apparent Distress HEENT: Intubated Cardiovascular: Regular rate Abdomen: Soft Extremities: Dry NE: The patient was comatose. Cranial nerve examination was limited by mental status. Pupils were equal and reactive to light. There was no afferent pupillary defect. Funduscopic examination was limited. Face was grossly symmetric, w/ present corneal and cough reflexes. Tone was normal. Muscle bulk was normal. I did not see fasciculations. The patient withdrew to noxious stimulation x 4. Coordination and gait testing was limited by mental status. Arm and leg reflexes were within normal limits and symmetric. Skinner's sign was absent. Plantar responses were flexor. Results Result Diagram: 05/10/19 0537 05/10/19 0537 Results 24hrs Laboratory Tests Test 05/09/19 12:35 05/09/19 16:22 05/09/19 18:16 05/09/19 21:35 Ammonia < 9 L Vitamin B12 Level 822 Bedside Glucose 294 H 285 H 249 H Test 05/10/19 01:05 05/10/19 05:37 05/10/19 05:45 05/10/19 08:58 Bedside Glucose 206 196 190 White Blood Count 15.9 #H Red Blood Count 5.12 Hemoglobin 14.7 Hematocrit 44.2 Mean Corpuscular 86.3 Volume Mean Corpuscular 28.7 L Hemoglobin Mean Corpuscular 33.3 Hemoglobin Concent Red Cell 13.5 Distribution Width Platelet Count 181 Mean Platelet Volume 11.5 H Immature 0.600 H Granulocytes % Neutrophils % 91.8 H Lymphocytes % 5.0 L Monocytes % 2.5 Eosinophils % 0.0 Basophils % 0.1 Nucleated Red Blood 0.0 Cells % Immature 0.100 H Granulocytes # Neutrophils # 14.6 H Lymphocytes # 0.8 Monocytes # 0.4 Eosinophils # 0.0 Basophils # 0.0 Nucleated Red Blood 0.0 Cells # Sodium Level 138 Potassium Level 3.2 L Chloride Level 105 Carbon Dioxide Level 24 Anion Gap 9 Blood Urea Nitrogen 23 #H Creatinine 1.39 H Est Glomerular 42 L Filtrat Rate mL/min Glucose Level 209 # Calcium Level 9.0 Magnesium Level 1.8 Medications Medication Current Medications IV Flush (NS 3 ml) 3 ml PER PROTOCOL IV ; Start 05/09/19 at 00:00 Ondansetron HCl (Zofran Inj) 4 mg Q6H PRN IV NAUSEA/VOMITING; Start 05/09/19 at 00:00 Acetaminophen (Tylenol Tab) 650 mg Q6H PRN PO .PAIN 1-3 OR TEMP; Start 05/09/19 at 00:00 Acetaminophen/ Hydrocodone Bitart ([place] (5/325)) 1 tab Q6H PRN PO .MOD PAIN 4- 6; Start 05/09/19 at 00:00 Morphine Sulfate (morphine) 2 mg Q4H PRN IV .SEVERE PAIN 7-10; Start 05/09/19 at 00:00 Docusate Sodium (Colace) 100 mg Q12H PRN PO .CONSTIPATION; Start 05/09/19 at 00:00 Magnesium Hydroxide (Milk Of Mag) 30 ml DAILY PRN PO .CONSTIPATION; Start 05/09/19 at 00:00 Sodium Chloride 1,000 ml @ 75 mls/hr [id number] IV Last administered on 05/10/19at 09:50; Admin Dose 75 MLS/HR; Start 05/08/19 at 23:44 Albuterol/ Ipratropium (Duoneb) 3 ml Q4H RESP THERAPY PRN HHN SHORTNESS OF BREATH; Start 05/09/19 at 00:00 Vancomycin HCl (Vanco Iv Per Pharmacy) VANCOMYCIN PER PHARMACY NOTE XX ; Start 05/09/19 at 00:00 Hydralazine HCl (Apresoline) 10 mg Q6H PRN IV ELEVATED BLOOD PRESSURE Last administered on 05/09/19at 03:20; Admin Dose 10 MG; Start 05/09/19 at 00:00 Nitroglycerin (Nitroglycerin (Sl Tab) 0.4 Mg) 1 tab Q5M PRN SL ANGINA; Start 05/09/19 at 00:00 Ceftriaxone Sodium 50 ml @ 100 mls/hr Q12H IVPB Last administered on 05/10/19at 03:20; Admin Dose 100 MLS/HR; Start 05/09/19 at 03:30 Labetalol HCl (Labetalol) 10 mg Q6H PRN IV sys bp > 160; Start 05/09/19 at 05:00 Acyclovir 600 mg/ Dextrose 100 ml @ 100 mls/hr Q8H IVPB Last administered on 05/10/19at 11:21; Admin Dose 100 MLS/HR; Start 05/09/19 at 10:30 Nicardipine HCl 200 ml @ 0 mls/hr TITRATE IV Last administered on 05/10/19at 10 :04; Admin Dose 100 MLS/HR; Start 05/09/19 at 14:30 Vancomycin HCl 2 gm/Sodium Chloride 500 ml @ 125 mls/hr Q12H IVPB Last administered on 05/10/19at 04:07; Admin Dose 125 MLS/HR; Start 05/09/19 at 16:00 Insulin Aspart (Novolog Insulin Pen) NOVOLOG *MODERATE* [place]I... Q4 SC Last administered on 05/10/19at 09:26; Admin Dose 4 UNIT; Start 05/09/19 at 18:00 Miscellaneous Information 1 ea NOTE XX ; Start 05/09/19 at 17:00 Glucose (Glutose) 15 gm Q15M PRN PO DECREASED GLUCOSE; Start 05/09/19 at 17:00 Glucose (Glutose) 22.5 gm Q15M PRN PO DECREASED GLUCOSE; Start 05/09/19 at 17:00 Dextrose (D50w Syringe) 25 ml Q15M PRN IV DECREASED GLUCOSE; Start 05/09/19 at 17:00 Dextrose (D50w Syringe) 50 ml Q15M PRN IV DECREASED GLUCOSE; Start 05/09/19 at 17:00 Glucagon (Glucagen) 1 mg Q15M PRN IM DECREASED GLUCOSE; Start 05/09/19 at 17:00 Glucose (Glutose) 15 gm Q15M PRN BUCCAL DECREASED GLUCOSE; Start 05/09/19 at 17:00 Propofol 100 ml @ 3.75 mls/hr Q12H IV Last administered on 05/10/19at 09:56; Admin Dose 22.5 MLS/HR; Start 05/09/19 at 17:00 Miscellaneous Information (*Rx Drug Level Order Reminder*) VANCO TR LEVEL PRIOR... 1500 ONCE XX ; Start 05/10/19 at 15:00; Stop 05/10/19 at 15:01 Potassium Chloride 100 ml @ 50 mls/hr Q2H IVPB Last administered on 05/10/19at 11:23; Admin Dose 50 MLS/HR; Start 05/10/19 at 09:00; Stop 05/10/19 at 12:59 Famotidine (Pepcid Iv) 20 mg Q12 IV ; Start 05/11/19 at 09:00 JOSÉ TORO May 10, 2019 11:54
[2019-05-10] MEDS ORDERED: MAGNESIUM SULFATE 2 GM/50 ML 50 ML IVPB ONE (12:00)
--- NOTE | 2019-05-10 12:06 | PN ---
Date/Time of Note Date/Time of Note DATE: 05/10/19 TIME: 12:00 Assessment/Plan VTE Prophylaxis Risk score (from Ns)>0 risk: 5 [place]CD [place] [facility] [place] Pharmacological prophylaxis: NA/contraindicated Pharm contraindication: bleeding Lines/Catheters IV Catheter Type (from [facility]): Peripheral IV Urinary Cath still in place: Yes Reason Cath still needed: other (indicate) (intubated) Assessment/Plan Assessment/Plan 39-year-old morbidly obese woman with unknown past medical history who comes in with decreased p.o. intake, nausea and vomiting for the last 3 to 4 days with signs of questionable left frontal lobe hematoma versus possible meningitis or encephalitis based on overall brain scan results. #Encephalopathy - Empiric meningitis/encephalitis treatment: Vanco, ceftriaxone, acyclovir. - LP pending. - Decadron also ordered on admission. - Pending MRI brain. - CT shows possible left frontal bleed. - Droplet isolation until 48 hours of antibiotics have been given. #Respiratory failure - Intubated due to poor mental status - When patient is awake and following commands, extubation per pulmonary. # Hypertension + tachycardia: - Again symptoms could be secondary to a bleeding process in the brain, or secondary to infectious process in the brain - Again we will place patient on both labetalol and hydralazine blood pressure medicines to keep the systolic blood pressure was 160 - Continue IV fluids and monitor heart rate # DVT prophylaxis: SCDs Result Diagram: 05/10/1937 05/10/1937 Subjective 24 Hr Interval Summary Free Text/Dictation Still intubated. Patient not following commands but moving all extremities this morning off sedation. Still on nicardipene gtt. Exam/Review of Systems Exam Vitals Vital Signs Date Temp Pulse Resp B/P (MAP) Pulse Ox O2 O2 Flow FiO2 Time Delivery Rate 05/10/19 110 18 138/65 96 11:30 (89) 05/10/19 Mechanical 11:00 Ventilator 05/10/19 30 09:42 05/10/19 99.2 08:00 05/09/19 4.0 11:46 Intake and Output 05/09/19 05/09/19 05/10/19 1515:00 23:00 07:00 IntakeIntake Total 256.875 ml 1889.80 ml 1537.50 ml OutputOutput Total 100 ml 300 ml 220 ml BalanceBalance 156.875 ml 1589.80 ml 1317.50 ml Exam Gen: Morbidly obese woman lying supine in bed, intubated and sedated Eyes: Downward facing. Normal conjunctivae. Nonreactive pupils. ENT: Normal External Ears, Nose and Mouth. Moist mucous membranes. ET tube in place. Neck: Full range of motion. No meningismus. No lymphadenopathy. Resp: Mechanical breath sounds bilaterally. Cardio: Tachycardic heart rate, no murmurs appreciated. Abd: Soft, obese, nondistended, normal bowel sounds Ext: No lower extremity edema bilaterally Results Results 24hrs Laboratory Tests Test 05/09/19 12:35 05/09/19 16:22 05/09/19 18:16 05/09/19 21:35 Ammonia < 9 L Vitamin B12 Level 822 Bedside Glucose 294 H 285 H 249 H Test 05/10/19 01:05 05/10/19 05:37 05/10/19 05:45 05/10/19 08:58 Bedside Glucose 206 196 190 White Blood Count 15.9 #H Red Blood Count 5.12 Hemoglobin 14.7 Hematocrit 44.2 Mean Corpuscular 86.3 Volume Mean Corpuscular 28.7 L Hemoglobin Mean Corpuscular 33.3 Hemoglobin Concent Red Cell 13.5 Distribution Width Platelet Count 181 Mean Platelet Volume 11.5 H Immature 0.600 H Granulocytes % Neutrophils % 91.8 H Lymphocytes % 5.0 L Monocytes % 2.5 Eosinophils % 0.0 Basophils % 0.1 Nucleated Red Blood 0.0 Cells % Immature 0.100 H Granulocytes # Neutrophils # 14.6 H Lymphocytes # 0.8 Monocytes # 0.4 Eosinophils # 0.0 Basophils # 0.0 Nucleated Red Blood 0.0 Cells # Sodium Level 138 Potassium Level 3.2 L Chloride Level 105 Carbon Dioxide Level 24 Anion Gap 9 Blood Urea Nitrogen 23 #H Creatinine 1.39 H Est Glomerular 42 L Filtrat Rate mL/min Glucose Level 209 # Calcium Level 9.0 Magnesium Level 1.8 Medications Medication Current Medications IV Flush (NS 3 ml) 3 ml PER PROTOCOL IV ; Start 05/09/19 at 00:00 Ondansetron HCl (Zofran Inj) 4 mg Q6H PRN IV NAUSEA/VOMITING; Start 05/09/19 at 00:00 Acetaminophen (Tylenol Tab) 650 mg Q6H PRN PO .PAIN 1-3 OR TEMP; Start 05/09/19 at 00:00 Acetaminophen/ Hydrocodone Bitart ([place] (5/325)) 1 tab Q6H PRN PO .MOD PAIN 4- 6; Start 05/09/19 at 00:00 Morphine Sulfate (morphine) 2 mg Q4H PRN IV .SEVERE PAIN 7-10; Start 05/09/19 at 00:00 Docusate Sodium (Colace) 100 mg Q12H PRN PO .CONSTIPATION; Start 05/09/19 at 00:00 Magnesium Hydroxide (Milk Of Mag) 30 ml DAILY PRN PO .CONSTIPATION; Start 05/09/19 at 00:00 Sodium Chloride 1,000 ml @ 75 mls/hr [id number] IV Last administered on 05/10/19at 09:50; Admin Dose 75 MLS/HR; Start 05/08/19 at 23:44 Albuterol/ Ipratropium (Duoneb) 3 ml Q4H RESP THERAPY PRN HHN SHORTNESS OF BREATH; Start 05/09/19 at 00:00 Vancomycin HCl (Vanco Iv Per Pharmacy) VANCOMYCIN PER PHARMACY NOTE XX ; Start 05/09/19 at 00:00 Hydralazine HCl (Apresoline) 10 mg Q6H PRN IV ELEVATED BLOOD PRESSURE Last administered on 05/09/19at 03:20; Admin Dose 10 MG; Start 05/09/19 at 00:00 Nitroglycerin (Nitroglycerin (Sl Tab) 0.4 Mg) 1 tab Q5M PRN SL ANGINA; Start 05/09/19 at 00:00 Ceftriaxone Sodium 50 ml @ 100 mls/hr Q12H IVPB Last administered on 05/10/19at 03:20; Admin Dose 100 MLS/HR; Start 05/09/19 at 03:30 Labetalol HCl (Labetalol) 10 mg Q6H PRN IV sys bp > 160; Start 05/09/19 at 05:00 Acyclovir 600 mg/ Dextrose 100 ml @ 100 mls/hr Q8H IVPB Last administered on 05/10/19at 11:21; Admin Dose 100 MLS/HR; Start 05/09/19 at 10:30 Nicardipine HCl 200 ml @ 0 mls/hr TITRATE IV Last administered on 05/10/19at 10:04; Admin Dose 100 MLS/HR; Start 05/09/19 at 14:30 Vancomycin HCl 2 gm/Sodium Chloride 500 ml @ 125 mls/hr Q12H IVPB Last administered on 05/10/19at 04:07; Admin Dose 125 MLS/HR; Start 05/09/19 at 16:00 Insulin Aspart (Novolog Insulin Pen) NOVOLOG *MODERATE* ALGORI... Q4 SC Last administered on 05/10/19at 09:26; Admin Dose 4 UNIT; Start 05/09/19 at 18:00 Miscellaneous Information 1 ea NOTE XX ; Start 05/09/19 at 17:00 Glucose (Glutose) 15 gm Q15M PRN PO DECREASED GLUCOSE; Start 05/09/19 at 17:00 Glucose (Glutose) 22.5 gm Q15M PRN PO DECREASED GLUCOSE; Start 05/09/19 at 17:00 Dextrose (D50w Syringe) 25 ml Q15M PRN IV DECREASED GLUCOSE; Start 05/09/19 at 17:00 Dextrose (D50w Syringe) 50 ml Q15M PRN IV DECREASED GLUCOSE; Start 05/09/19 at 17:00 Glucagon (Glucagen) 1 mg Q15M PRN IM DECREASED GLUCOSE; Start 05/09/19 at 17:00 Glucose (Glutose) 15 gm Q15M PRN BUCCAL DECREASED GLUCOSE; Start 05/09/19 at 17:00 Propofol 100 ml @ 3.75 mls/hr Q12H IV Last administered on 05/10/19at 09:56; Admin Dose 22.5 MLS/HR; Start 05/09/19 at 17:00 Miscellaneous Information (*Rx Drug Level Order Reminder*) VANCO TR LEVEL PRIOR... 1500 ONCE XX ; Start 05/10/19 at 15:00; Stop 05/10/19 at 15:01 Potassium Chloride 100 ml @ 50 mls/hr Q2H IVPB Last administered on 05/10/19at 11:23; Admin Dose 50 MLS/HR; Start 05/10/19 at 09:00; Stop 05/10/19 at 12:59 Famotidine (Pepcid Iv) 20 mg Q12 IV ; Start 05/11/19 at 09:00 Magnesium Sulfate 50 ml @ 25 mls/hr ONCE ONCE IVPB ; Start 05/10/19 at 12:00; Stop 05/10/19 at 13:59 DAVID QUIÑONEZ MD May 10, 2019 12:06
--- NOTE | 2019-05-10 13:16 | CONS ---
Assessment/Plan Assessment/Plan Hospital Course (Demo Recall) Patient remains intubated sedated status post lumbar puncture done this morning she is afebrile heart rate 110 respirations 20 blood pressure 138/65 saturation 96 on vent WBC 15.9 platelets 181 neutrophils 91.8 BUN 23 creatinine 1.39 Microbiology: Blood cultures negative urine culture consistent with contaminant. antimicrobials: Vancomycin, acyclovir, Rocephin Chest x-ray revealed interstitial opacities throughout the lungs with small left pleural effusion effusion. CT of the brain on admission revealed 13 mm parenchymal hematoma in the left frontal lobe with surrounding edema ques tionable vasculitis infectious or inflammatory process old small lacunar infarct. Please see full report in the chart. CT angiogram was unremarkable. Indwelling: Endotracheal tube orogastric tube Bojorquez catheter peripheral IV Physical examination: Morbidly obese well-developed middle-aged woman who is intubated sedated in no distress. Head atraumatic normocephalic sclera nonicteric unable to assess pupils as her pupils facing down. Bugle mucosa dry. Neck is supple chest rise symmetrical breath sounds diminished bases. Heart: S1-S2. Abdomen obese soft bowel tones present. Extremities without cyanosis. Assessment: 1. Acute encephalopathy possible meningoencephalitis versus hemorrhage versus both 2. Acute respiratory failure, rule out aspiration 3. Morbid obesity 4. Acute kidney insufficiency 5. Hypertension Plan: Continue present care and antibiotics, follow CSF cultures and fluid analysis, follow neurology recommendations, vent per pulmonary Consultation Date/Type/Reason Admit Date/Time May 08, 2019 at 23:21 Initial Consult Date 05/10/19 Type of Consult id Requesting Provider: DAMIEN CHOUDHARY Date/Time of Note DATE: 05/10/19 TIME: 13:15 Exam/Review of Systems Exam Vitals Vital Signs Date Temp Pulse Resp B/P (MAP) Pulse Ox O2 O2 Flow FiO2 Time Delivery Rate 05/10/19 123 12:00 05/10/19 18 138/65 96 11:30 (89) 05/10/19 Mechanical 11:00 Ventilator 05/10/19 30 09:42 05/10/19 99.2 08:00 05/09/19 4.0 11:46 Intake and Output 05/09/19 05/09/19 05/10/19 1515:00 23:00 07:00 IntakeIntake Total 256.875 ml 1889.80 ml 1537.50 ml OutputOutput Total 100 ml 300 ml 220 ml BalanceBalance 156.875 ml 1589.80 ml 1317.50 ml Results Result Diagram: 05/10/19 0537 05/10/19 0537 Results 24hrs Laboratory Tests Test 05/09/19 16:22 05/09/19 18:16 05/09/19 21:35 05/10/19 01:05 Bedside Glucose 294 H 285 H 249 H 206 Test 05/10/19 05:37 05/10/19 05:45 05/10/19 08:58 05/10/19 12:28 White Blood Count 15.9 #H Red Blood Count 5.12 Hemoglobin 14.7 Hematocrit 44.2 Mean Corpuscular 86.3 Volume Mean Corpuscular 28.7 L Hemoglobin Mean Corpuscular 33.3 Hemoglobin Concent Red Cell 13.5 Distribution Width Platelet Count 181 Mean Platelet Volume 11.5 H Immature 0.600 H Granulocytes % Neutrophils % 91.8 H Lymphocytes % 5.0 L Monocytes % 2.5 Eosinophils % 0.0 Basophils % 0.1 Nucleated Red Blood 0.0 Cells % Immature 0.100 H Granulocytes # Neutrophils # 14.6 H Lymphocytes # 0.8 Monocytes # 0.4 Eosinophils # 0.0 Basophils # 0.0 Nucleated Red Blood 0.0 Cells # Sodium Level 138 Potassium Level 3.2 L Chloride Level 105 Carbon Dioxide Level 24 Anion Gap 9 Blood Urea Nitrogen 23 #H Creatinine 1.39 H Est Glomerular 42 L Filtrat Rate mL/min Glucose Level 209 # Calcium Level 9.0 Magnesium Level 1.8 Bedside Glucose 196 190 171 Medications Medication Current Medications IV Flush (NS 3 ml) 3 ml PER PROTOCOL IV ; Start 05/09/19 at 00:00 Ondansetron HCl (Zofran Inj) 4 mg Q6H PRN IV NAUSEA/VOMITING; Start 05/09/19 at 00:00 Acetaminophen (Tylenol Tab) 650 mg Q6H PRN PO .PAIN 1-3 OR TEMP; Start 05/09/19 at 00:00 Acetaminophen/ Hydrocodone Bitart ([place] (5/325)) 1 tab Q6H PRN PO .MOD PAIN 4- 6; Start 05/09/19 at 00:00 Morphine Sulfate (morphine) 2 mg Q4H PRN IV .SEVERE PAIN 7-10; Start 05/09/19 at 00:00 Docusate Sodium (Colace) 100 mg Q12H PRN PO .CONSTIPATION; Start 05/09/19 at 00:00 Magnesium Hydroxide (Milk Of Mag) 30 ml DAILY PRN PO .CONSTIPATION; Start 05/09/19 at 00:00 Sodium Chloride 1,000 ml @ 75 mls/hr [id number] IV Last administered on 05/10/19at 09:50; Admin Dose 75 MLS/HR; Start 05/08/19 at 23:44 Albuterol/ Ipratropium (Duoneb) 3 ml Q4H RESP THERAPY PRN HHN SHORTNESS OF BREATH; Start 05/09/19 at 00:00 Vancomycin HCl (Vanco Iv Per Pharmacy) VANCOMYCIN PER PHARMACY NOTE XX ; Start 05/09/19 at 00:00 Hydralazine HCl (Apresoline) 10 mg Q6H PRN IV ELEVATED BLOOD PRESSURE Last administered on 05/09/19at 03:20; Admin Dose 10 MG; Start 05/09/19 at 00:00 Nitroglycerin (Nitroglycerin (Sl Tab) 0.4 Mg) 1 tab Q5M PRN SL ANGINA; Start 05/09/19 at 00:00 Ceftriaxone Sodium 50 ml @ 100 mls/hr Q12H IVPB Last administered on 05/10/19at 03:20; Admin Dose 100 MLS/HR; Start 05/09/19 at 03:30 Labetalol HCl (Labetalol) 10 mg Q6H PRN IV sys bp > 160; Start 05/09/19 at 05:00 Acyclovir 600 mg/ Dextrose 100 ml @ 100 mls/hr Q8H IVPB Last administered on 05/10/19at 11:21; Admin Dose 100 MLS/HR; Start 05/09/19 at 10:30 Nicardipine HCl 200 ml @ 0 mls/hr TITRATE IV Last administered on 05/10/19at 12:26; Admin Dose 75 MLS/HR; Start 05/09/19 at 14:30 Vancomycin HCl 2 gm/Sodium Chloride 500 ml @ 125 mls/hr Q12H IVPB Last administered on 05/10/19at 04:07; Admin Dose 125 MLS/HR; Start 05/09/19 at 16:00 Insulin Aspart (Novolog Insulin Pen) NOVOLOG *MODERATE* ALGORI... Q4 SC Last administered on 05/10/19at 12:53; Admin Dose 2 UNIT; Start 05/09/19 at 18:00 Miscellaneous Information 1 ea NOTE XX ; Start 05/09/19 at 17:00 Glucose (Glutose) 15 gm Q15M PRN PO DECREASED GLUCOSE; Start 05/09/19 at 17:00 Glucose (Glutose) 22.5 gm Q15M PRN PO DECREASED GLUCOSE; Start 05/09/19 at 17:00 Dextrose (D50w Syringe) 25 ml Q15M PRN IV DECREASED GLUCOSE; Start 05/09/19 at 17:00 Dextrose (D50w Syringe) 50 ml Q15M PRN IV DECREASED GLUCOSE; Start 05/09/19 at 17:00 Glucagon (Glucagen) 1 mg Q15M PRN IM DECREASED GLUCOSE; Start 05/09/19 at 17:00 Glucose (Glutose) 15 gm Q15M PRN BUCCAL DECREASED GLUCOSE; Start 05/09/19 at 17:00 Propofol 100 ml @ 3.75 mls/hr Q12H IV Last administered on 05/10/19at 09:56; Admin Dose 22.5 MLS/HR; Start 05/09/19 at 17:00 Miscellaneous Information (*Rx Drug Level Order Reminder*) VANCO TR LEVEL PRIOR... 1500 ONCE XX ; Start 05/10/19 at 15:00; Stop 05/10/19 at 15:01 Famotidine (Pepcid Iv) 20 mg Q12 IV ; Start 05/11/19 at 09:00 Magnesium Sulfate 50 ml @ 25 mls/hr ONCE ONCE IVPB Last administered on 05/10/19at 12:26; Admin Dose 25 MLS/HR; Start 05/10/19 at 12:00; Stop 05/10/19 at 13:59 Hydralazine HCl (Apresoline) 100 mg Q8 PO ; Start 05/10/19 at 14:00 Lisinopril (Zestril) 20 mg BID PO ; Start 05/10/19 at 21:00 ROHIT CHAWLA NP May 10, 2019 13:16
--- NOTE | 2019-05-10 19:39 | CONS ---
DATE OF ADMISSION: 05/08/2019 DATE OF CONSULTATION: 05/10/2019 PHYSICIAN REQUESTING CONSULT: Dr. Lo. HISTORY OF PRESENT ILLNESS: This is a 39-year-old female with a past medical history of hypertension , who presents to [facility] Emergency Room with decreased p.o. intake. The patient states that she has been vomiting 3 to 4 days prior to admission. The patient upon arrival to the emergency room wa s initially felt to be hypertensive. The patient received 3 L of normal saline. The patient then gong d a CT scan of the head which showed that there is a left frontal lobe intracranial hemorrhage along with diffuse pronounced white matter hypodensity. The patient was started on IV antibiotics and eval uated by neurosurgery for the acute bleed. The patient was also given steroids and admitted to the ntensive care unit. While in the intensive care unit, the patient is decompensated and was placed on ventilatory support. The patient was seen by neurologist, infectious disease doctors, concerning fo r possibility of meningeal encephalitis. The patient had an LP scan. The patient was also started o n IV acyclovir. The patient has remained obtunded during the hospital course, has become hypertensiv e and has been placed on Cardene drip. Currently, the patient remains critically ill. In terms of patient's renal history, on admission, the patient had a creatinine of 0.82 mg/dL. Durin g the hospital course, the patient received CT contrast. Also was placed on BETO inhibitor and has be en receiving IV erythromycin as well as IV acyclovir. The patient's renal creatinine the last 24 boubacar rs has increased to 1.39 mg/dL and patient noted to have minimal urinary output. There has been no e pisodes of hemoptysis, hematemesis or hematochezia. PAST MEDICAL HISTORY: History of hypertension. PAST SURGICAL HISTORY: None. ALLERGIES: NO KNOWN DRUG ALLERGIES. FAMILY HISTORY: No family history of kidney disease. SOCIAL HISTORY: Unchanged, does not do drugs. MEDICATIONS: The patient's medications has been reviewed. REVIEW OF SYSTEMS: Unable to do adequate review of systems as patient is obtunded. Pertinent positi ves as stated. I have reviewed medical records, speaking to hospital staff, stated in HPI, otherwise negative. PHYSICAL EXAMINATION: VITAL SIGNS: Blood pressure 131/66, respiration 21, pulse 107, temperature 98.6. HEENT: Head is normocephalic. NECK: Supple. HEART: Regular rate. LUNGS: Show diminished breath sounds at the base. ABDOMEN: Soft, nontender to palpation without rebound or guarding. EXTREMITIES: Negative for clubbing or cyanosis, no edema. DERMATOLOGIC: No rashes. MUSCULOSKELETAL: No joint effusion. NEUROLOGIC: The patient is obtunded. LABORATORY DATA: Has been reviewed. Urinalysis has been reviewed. IMAGING STUDIES: Have been reviewed. ASSESSMENT AND PLAN: This is a 39-year-old male who presents with: 1. Oligoanuric acute kidney injury with previously normal baseline creatinine of 0.72 mg/dL. Etiolo gy of acute kidney injury is multifactorial secondary to vancomycin-associated nephrotoxicity, possib le contrast-associated nephrotoxicity, BETO inhibitor effect, possible interstitial nephritis from IV acyclovir. Lower suspicion for acute glomerulonephritis or vasculitis given clinical presentation. The patient's vancomycin trough is noted to be 57, markedly elevated. Additionally, the patient also received a recent contrast exposure and has been on BETO inhibitor. Recommendation at this point is to repeat UA with microanalysis. We will check urine lytes. Would recommend to discontinue vancomyc in. Would hold BETO inhibitor. Would otherwise continue current treatment plan. Continue supportive care, renally dose all medication, monitor hemodynamics closely to avoid hypotensive episodes. We w ill deescalate IV fluids. There is no immediate need for renal placement therapy. We will continue to monitor closely. 2. Hypokalemia. We will replace with potassium chloride. 3. Mineral bone disorder. Monitor calcium and phosphorus levels. 4. Acute encephalopathy, possible meningeal encephalitis versus acute hemorrhagic bleed. The patien t is currently on antibiotic therapy. We will continue to monitor. 5. Ventilatory-dependent respiratory failure. Vent settings and ABG has been reviewed. Continue to monitor. 6. Hypertensive urgency. The patient remains on Cardene drip. Continue, wean off drip as tolerated . Will deescalate IV fluids, monitor closely. 4. Tachyarrhythmia. Continue to monitor. 5. Acute left frontal hematoma. Continue to monitor. Follow up with neurosurgery. No plan for int ervention at this time. Thank you, Dr. Lo, for this interesting consult. It will be a pleasure to follow patient with you throughout the hospital course. Dictated By: AMELIA NUÑEZ/ALISHA Conf#: [id number] [facility] [place]#: [id number]
[2019-05-10] MEDS ORDERED: LISINOPRIL 20 MG TAB PO SCH (21:00)
--- NOTE | 2019-05-10 22:50 | CONS ---
Assessment/Plan Assessment/Plan Assessment/Plan (Daily) Date of consultation: 05/10/2019 Requesting physician: Dr. Fernandez with the emergency department Consulting service: Neurosurgery This is a 39-year-old female who presented to the emergency department yesterday for several days history of generalized weakness, decreased by mouth intake, nausea and vomiting and altered level of consciousness. There is no reported preceding trauma. The patient does not have any history of significant infections. There is no prior history of convulsions or seizures. Further history cannot be obtained as the patient is altered and unable to answer questions. Neurosurgery was consulted at the time of arrival at the patient to the emergency department after she was found to have a small left frontal ICH on the CT of the head. The patient has been admitted to the ICU and has subsequently been intubated for lethargy and inability to protect her airway. She has also been hypertensive. Past medical history: Hypertension, diabetes, GERD Allergies:No known drug allergies Review of systems: Cannot be obtained as the patient is altered. Family history: Unknown Social history: Unknown Physical examination: This is a young female lying in bed in the ICU. She is intubated and on the ventilator. Face is grossly symmetric. Pupils are equally round and reactive to light bilaterally. Corneal reflexes are present bilaterally. Cough and gag is present. Off sedation, the patient withdraws to pain bilateral upper and lower extremity. She grimaces to pain but does not open her eyes. She does not follow commands. Muscle bulk and tone is normal bilateral upper and lower extremities. Deep tendon reflexes are 1+ bilateral upper and lower extremities. Sensation cannot be tested since the patient is intubated and unresponsive. There is no Meg sign present bilaterally. Toes are downgoing bilaterally. The rest of the neurologic exam cannot be done as the patient is intubated and unresponsive. Imaging: The CT of the head reveals a relatively small left frontal hematoma without significant focal mass-effect or midline shift. More significantly the patient has diffuse hypodensity involving the subcortical white matter bilat erally as well as the brainstem of unknown etiology. There is no evidence of hydrocephalus. The basal cisterns are open. At my request, a CT angiogram of the head has also been done that does not show any evidence of an underlying vascular lesion such as an AVM. Assessment/plan: This is a relatively young female with new onset symptoms of altered level of consciousness that has rapidly been progressive in nature resulting in lethargy requiring intubation. The underlying etiology for the patient's small left frontal ICH and the rather diffuse hypodensity involving the subcortical white matter bilaterally as well as the brainstem remains unclear at this time. Infectious etiology such as meningoencephalitis versus inflammatory conditions is on the differential. There is no evidence of hydrocephalus. There is no acute neurosurgical intervention indicated at this time. As I have discussed with the patient's admitting hospitalist, patient requires formal workup by neurology that has already begun including lumbar puncture to obtain CSF, EEG as well as MRI of the brain with and without contrast. If the patient does develop hydrocephalus or other mass lesions over time, she may require neurosurgical intervention in the future. Neurosurgery can be reconsulted again if necessary. FABRICE DELATORRE MD May 10, 2019 22:50
[2019-05-11] VITALS (52 sets, daily range): BP systolic 123–200; BP diastolic 63–114; PULSE 79–106; RESP 16–29
[2019-05-11] MEDS: ACYCLOVIR 600 MG in DEXTROSE 5% 100 ML IVPB SCH ×2 (00:02→11:12)
[2019-05-11] MEDS: INSULIN ASPART [NOVOLOG] 3 ML PEN SC SCH ×6 (01:01→21:00)
[2019-05-11] MEDS: PROPOFOL 100 ML IV SCH ×2 (02:41→08:44)
[2019-05-11] MEDS: CEFTRIAXONE 2 GM/50 ML (PMX) 50 ML IVPB SCH (03:02)
[2019-05-11] MEDS: SOD CHLORIDE 0.45% 1,000 ML IV SCH ×2 (05:21→20:04)
[2019-05-11] MEDS: POTASSIUM CHLORIDE 100 ML IVPB SCH ×2 (07:37→09:54)
--- NOTE | 2019-05-11 08:20 | PN ---
DATE: 05/11/2019 SUBJECTIVE: The patient remains critically ill, on full ventilatory support. The patient remains ob tunded. The patient's urinary output has improved. No other acute events noted. No hemoptysis, hem atemesis or hematochezia. OBJECTIVE: VITAL SIGNS: Blood pressure is 158/85, respirations 20, pulse 101, temperature 97.8. HEENT: Head is normocephalic. NECK: Supple. HEART: Regular rate. LUNGS: Show diminished breath sounds at the base. ABDOMEN: Soft, nontender to palpation without rebound or guarding. EXTREMITIES: Negative for clubbing, cyanosis, no edema. DERMATOLOGIC: No rashes. MUSCULOSKELETAL: No joint effusion. NEUROLOGIC: No change in exam. MEDICATIONS: Reviewed. LABORATORY DATA: Reviewed. IMAGING STUDIES: Reviewed. Renal ultrasound was reviewed. MRI of the brain was reviewed. ASSESSMENT AND PLAN: 1. Nonoliguric acute kidney injury with previous baseline creatinine of 0.72 mg/dL. Etiology of acu te kidney injury is multifactorial secondary to vancomycin nephrotoxicity, contrast-associated nephro nancy, BETO inhibitor effect. The patient's urinalysis was bland, no active sediment. Renal ultrasou nd shows no evidence of obstruction. The patient's renal function has improved. The patient's urina ry output has improved in the last 12 hours. The patient appears to still be in injury phase of acut e kidney injury. Recommendation at this point is to continue current treatment plan. Continue suppo rtive care, renally dose all medications and avoid nephrotoxins. 2. Hypokalemia. We will replete with potassium chloride. 3. Mineral bone disorder, monitor calcium and phosphorus levels. 4. Acute encephalopathy, etiology is multifactorial secondary to multiple infarcts, cerebrovascular accident. Continue to monitor. Follow up with neurology. The patient remains on empiric antibiotic s. 5. Ventilator-dependent respiratory failure. Vent settings and ABG was reviewed. Continue to monit or. 6. Hypertensive urgency. The patient's blood pressures are improving, currently off Cardene drip. 7. Tachyarrhythmia. Continue to monitor. 8. Left frontal hematoma. Continue current treatment plan. Follow up with neurosurgery. Please note I spent over 30 minutes of critical care time with this patient. Dictated By: AMELIA NUÑEZ/ALISHA Conf#: [id number] [facility]#: [id number] CC: DAMIEN CHOUDHARY; FABRICE DELATORRE MD;*End*
[2019-05-11] MEDS: FAMOTIDINE 20 MG INJ IV SCH ×2 (08:39→21:09)
--- NOTE | 2019-05-11 09:40 | CONS ---
Assessment/Plan Assessment/Plan Assessment/Plan (Recall) 39 F c/ reported Hx of DM2, who presents for evaluation of multiple complaints, including GI Sx...and eventual ams, for which neurology is consulted. 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 The clinical picture was initially concerning for meningoencephalitis..CSF evaluation is inconsistent w/ infection...the erythrocytosis possibly due to a traumatic tap.. Head CT was notable for a left frontal hyperdensity, likely hemorrhagic t ransformation of an above referenced focus of acute ischemia is the context of severe hypertension.. CTA head and neck is negative for multifocal stenoses, which might otherwise suggests vasculitis, etc. EEG was without epileptiform activity Ammonia wnl P: Echo w/ bubble study for further characterization Add HIV, RPR, ESR, NATY screen Add Hypercoagulability panel Other infectious workup/management per ID Hold all sedating medications where possible Continued BP control to goal SBP 120-160 Hold antiplatelets/anticoagulants til 05/15, then start baby asa daily thereafter.. Other management and supportive care per primary Will follow clinically Consultation Date/Type/Reason Admit Date/Time May 08, 2019 at 23:21 Type of Consult Neurology Reason for Consultation ams Requesting Provider: DAMIEN CHOUDHARY Date/Time of Note DATE: 05/11/19 TIME: 09:33 24 HR Interval Summary Free Text/Dictation s/p MRI brain Exam/Review of Systems Exam Vitals Vital Signs Date Temp Pulse Resp B/P (MAP) Pulse Ox O2 O2 Flow FiO2 Time Delivery Rate 05/11/19 84 08:00 05/11/19 98.2 17 152/86 100 Mechanical 08:00 (108) Ventilator 05/11/19 35 05:06 05/09/19 4.0 11:46 Intake and Output 05/10/19 05/10/19 05/11/19 1515:00 23:00 07:00 IntakeIntake Total 1768.75 ml 1112.50 ml 389 ml OutputOutput Total 210 ml 325 ml 635 ml BalanceBalance 1558.75 ml 787.50 ml -246 ml Exam PE: Gen Appearance: No Apparent Distress HEENT: Intubated Cardiovascular: Tachycardic Abdomen: Soft Extremities: Dry NE: The patient was comatose. Cranial nerve examination was limited by mental status. Pupils were equal and reactive to light. There was no afferent pupillary defect. Funduscopic examination was limited. Face was grossly symmetric, w/ present corneal and cough reflexes. Left, downward eye deviation. Tone was normal. Muscle bulk was normal. I did not see fasciculations. The patient decerebrate postured to nox stim. Coordination and gait testing was limited by mental status. Arm and leg reflexes were symmetric. Skinner's sign was absent. Plantar responses were flexor. Results Result Diagram: 05/11/19 0533 05/11/19 0533 Results 24hrs Laboratory Tests Test 05/10/19 12:28 05/10/19 13:00 05/10/19 15:31 05/10/19 18:09 Bedside Glucose 171 161 CSF Tubes Submitted 4 CSF Volume 6.5 CSF Appearance HAZY CSF Color PINKISH CSF WBC 4 CSF RBC 2000 H CSF Cell Count Tube TUBE#4 # CSF Mononuclear 50.0 Cells % (Auto) CSF Polynuclear WBCs 50.0 (%) CSF Glucose 118 H CSF Total Protein 139 H Vancomycin Level 57.3 *H Trough Test 05/10/19 21:25 05/11/19 00:58 05/11/19 05:12 05/11/19 05:33 Bedside Glucose 181 165 163 White Blood Count 10.6 # Red Blood Count 5.07 Hemoglobin 14.6 Hematocrit 44.8 Mean Corpuscular 88.4 Volume Mean Corpuscular 28.8 L Hemoglobin Mean Corpuscular 32.6 Hemoglobin Concent Red Cell 14.0 Distribution Width Platelet Count 159 Mean Platelet Volume 11.4 H Immature 0.500 H Granulocytes % Neutrophils % 68.4 Lymphocytes % 22.5 Monocytes % 8.3 Eosinophils % 0.1 Basophils % 0.2 Nucleated Red Blood 0.0 Cells % Immature 0.050 H Granulocytes # Neutrophils # 7.2 Lymphocytes # 2.4 Monocytes # 0.9 Eosinophils # 0.0 Basophils # 0.0 Nucleated Red Blood 0.0 Cells # Sodium Level 141 Potassium Level 3.0 L Chloride Level 109 Carbon Dioxide Level 21 Anion Gap 11 Blood Urea Nitrogen 29 H Creatinine 1.63 H Est Glomerular 35 L Filtrat Rate mL/min Glucose Level 171 Calcium Level 8.4 Test 05/11/19 08:39 Bedside Glucose 137 Medications Medication Current Medications IV Flush (NS 3 ml) 3 ml PER PROTOCOL IV ; Start 6/10/19 at 00:00 Ondansetron HCl (Zofran Inj) 4 mg Q6H PRN IV NAUSEA/VOMITING; Start 05/09/19 at 00:00 Acetaminophen (Tylenol Tab) 650 mg Q6H PRN PO .PAIN 1-3 OR TEMP; Start 05/09/19 at 00:00 Acetaminophen/ Hydrocodone Bitart ([place] (5/325)) 1 tab Q6H PRN PO .MOD PAIN 4- 6; Start 05/09/19 at 00:00 Morphine Sulfate (morphine) 2 mg Q4H PRN IV .SEVERE PAIN 7-10; Start 05/09/19 at 00:00 Docusate Sodium (Colace) 100 mg Q12H PRN PO .CONSTIPATION; Start 05/09/19 at 00:00 Magnesium Hydroxide (Milk Of Mag) 30 ml DAILY PRN PO .CONSTIPATION; Start 05/09/19 at 00:00 Sodium Chloride 1,000 ml @ 75 mls/hr [id number] IV Last administered on 05/11/19at 05:21; Admin Dose 75 MLS/HR; Start 05/08/19 at 23:44 Albuterol/ Ipratropium (Duoneb) 3 ml Q4H RESP THERAPY PRN HHN SHORTNESS OF BREATH; Start 05/09/19 at 00:00 Vancomycin HCl (Vanco Iv Per Pharmacy) VANCOMYCIN PER PHARMACY NOTE XX ; Start 05/09/19 at 00:00 Hydralazine HCl (Apresoline) 10 mg Q6H PRN IV ELEVATED BLOOD PRESSURE Last administered on 05/09/19at 03:20; Admin Dose 10 MG; Start 05/09/19 at 00:00 Nitroglycerin (Nitroglycerin (Sl Tab) 0.4 Mg) 1 tab Q5M PRN SL ANGINA; Start 05/09/19 at 00:00 Ceftriaxone Sodium 50 ml @ 100 mls/hr Q12H IVPB Last administered on 05/11/19at 03:02; Admin Dose 100 MLS/HR; Start 05/09/19 at 03:30 Labetalol HCl (Labetalol) 10 mg Q6H PRN IV sys bp > 160; Start 05/09/19 at 05:00 Nicardipine HCl 200 ml @ 0 mls/hr TITRATE IV Last administered on 05/10/19at 18:05; Admin Dose 25 MLS/HR; Start 05/09/19 at 14:30 Vancomycin HCl 2 gm/Sodium Chloride 500 ml @ 125 mls/hr Q12H IVPB Last administered on 05/10/19at 04:07; Admin Dose 125 MLS/HR; Start 05/09/19 at 16:00; Status Hold Insulin Aspart (Novolog Insulin Pen) NOVOLOG *MODERATE* ALGORI... Q4 SC Last a dministered on 05/11/19at 05:20; Admin Dose 2 UNIT; Start 05/09/19 at 18:00 Miscellaneous Information 1 ea NOTE XX ; Start 05/09/19 at 17:00 Glucose (Glutose) 15 gm Q15M PRN PO DECREASED GLUCOSE; Start 05/09/19 at 17:00 Glucose (Glutose) 22.5 gm Q15M PRN PO DECREASED GLUCOSE; Start 05/09/19 at 17:0 0 Dextrose (D50w Syringe) 25 ml Q15M PRN IV DECREASED GLUCOSE; Start 05/09/19 at 17:00 Dextrose (D50w Syringe) 50 ml Q15M PRN IV DECREASED GLUCOSE; Start 05/09/19 at 17:00 Glucagon (Glucagen) 1 mg Q15M PRN IM DECREASED GLUCOSE; Start 05/09/19 at 17:00 Glucose (Glutose) 15 gm Q15M PRN BUCCAL DECREASED GLUCOSE; Start 05/09/19 at 17:00 Propofol 100 ml @ 3.75 mls/hr Q12H IV Last administered on 05/11/19at 08:44; Admin Dose 15 MLS/HR; Start 05/09/19 at 17:00 Famotidine (Pepcid Iv) 20 mg Q12 IV Last administered on 05/11/19at 08:39; Admin Dose 20 MG; Start 05/11/19 at 09:00 Hydralazine HCl (Apresoline) 100 mg Q8 PO Last administered on 05/11/19at 05:14; Admin Dose 100 MG; Start 05/10/19 at 14:00 Acyclovir 600 mg/ Dextrose 100 ml @ 100 mls/hr Q12H IVPB Last administered on 05/11/19at 00:02; Admin Dose 100 MLS/HR; Start 05/10/19 at 23:00 Potassium Chloride 100 ml @ 50 mls/hr Q2H IVPB Last administered on 05/11/19at 07:37; Admin Dose 50 MLS/HR; Start 05/11/19 at 07:30; Stop 05/11/19 at 11:29 Atorvastatin Calcium (Lipitor) 80 mg HS NGT ; Start 05/11/19 at 21:00; Status UNJOSÉ MIJARES May 11, 2019 09:40
--- NOTE | 2019-05-11 09:41 | CONS ---
Assessment/Plan Assessment/Plan Assessment/Plan (Daily) Ventilator setting; AC of 14, tidal volume 500, PEEP of 5, 35% FiO2. Assessment and recommendations; 1. Patient admitted with altered mental status with intracranial bleed. Likely hypertensive in etiology. 2. Essentially negative CSF from yesterday. Ruling out meningitis. 3. History of hypertension. 4. Mild increase in serum creatinine. 5. Possibly some degree of mild UTI. Hold sedation to assess mental status. Continue current supportive care. Further recommendations per neurologist. Prognosis guarded at this point and depends entirely upon adequate mental status recovery. We will monitor renal function as well. Obtain follow-up chest x-ray 24 hours. If the patient cannot be weaned off from ventilator, I would recommend starting tube feeding. 35 minutes of critical care time was spent evaluating the patient. Consultation Date/Type/Reason Admit Date/Time May 08, 2019 at 23:21 Initial Consult Date 05/10/19 Type of Consult Pulmonary/critical care Patient is a 39-year-old lady who came into the hospital with complaints of nausea vomiting going on for the last 2 days with headache. Upon evaluation patient was extremely hypertensive then developed respiratory failure requiring intubation. Emergent CT imaging of the head was done which is showing intracranial hemorrhage. Patient has remained completely unresponsive. Was started on propofol drip for tachypnea. Past medical history; 1. Hypertension. Medications; reviewed. Allergies; none. Social history, family history, occupational history not available. Review of system; unable to be obtained. General exam; young female, orally intubated, sedated, currently in no distress. Requesting Provider: DAMIEN CHOUDHARY Date/Time of Note DATE: 05/11/19 TIME: 09:38 24 HR Interval Summary Free Text/Dictation Patient's condition is critical. Patient however has remained hemodynamically stable. No overt seizure activity reported. General exam; young woman, orally intubated, sedated, currently in no distress. Exam/Review of Systems Exam Vitals Vital Signs Date Temp Pulse Resp B/P (MAP) Pulse Ox O2 O2 Flow FiO2 Time Delivery Rate 05/11/19 84 08:00 05/11/19 98.2 17 152/86 100 Mechanical 08:00 (108) Ventilator 05/11/19 35 05:06 05/09/19 4.0 11:46 Intake and Output 05/10/19 05/10/1905/11/19 1515:00 23:00 07:00 IntakeIntake Total 1768.75 ml 1112.50 ml 389 ml OutputOutput Total 210 ml 325 ml 635 ml BalanceBalance 1558.75 ml 787.50 ml -246 ml Exam H EENT exam; supple neck, no JVD. No lymphadenopathy. Midline trachea. No thyromegaly. Orally intubated. Patient has adequate dentition. There is interval resolution of downward gaze. Pupils are small bilaterally. Chest exam; clear to auscultation. S1-S2 audible, no murmurs. Regular rhythm. Abdomen exam; soft, non-distended. No organomegaly. Bowel sounds audible. Extremity exam; no peripheral edema clubbing. 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 Results Result Diagram: 05/11/1933 05/11/19 0533 Results 24hrs Laboratory Tests Test 05/10/19 12:28 05/10/19 13:00 05/10/19 15:31 05/10/19 18:09 Bedside Glucose 171 161 CSF Tubes Submitted 4 CSF Volume 6.5 CSF Appearance HAZY CSF Color PINKISH CSF WBC 4 CSF RBC 2000 H CSF Cell Count Tube TUBE#4 # CSF Mononuclear 50.0 Cells % (Auto) CSF Polynuclear WBCs 50.0 (%) CSF Glucose 118 H CSF Total Protein 139 H Vancomycin Level 57.3 *H Trough Test 05/10/19 21:25 05/11/19 00:58 05/11/19 05:12 05/11/19 05:33 Bedside Glucose 181 165 163 White Blood Count 10.6 # Red Blood Count 5.07 Hemoglobin 14.6 Hematocrit 44.8 Mean Corpuscular 88.4 Volume Mean Corpuscular 28.8 L Hemoglobin Mean Corpuscular 32.6 Hemoglobin Concent Red Cell 14.0 Distribution Width Platelet Count 159 Mean Platelet Volume 11.4 H Immature 0.500 H Granulocytes % Neutrophils % 68.4 Lymphocytes % 22.5 Monocytes % 8.3 Eosinophils % 0.1 Basophils % 0.2 Nucleated Red Blood 0.0 Cells % Immature 0.050 H Granulocytes # Neutrophils # 7.2 Lymphocytes # 2.4 Monocytes # 0.9 Eosinophils # 0.0 Basophils # 0.0 Nucleated Red Blood 0.0 Cells # Sodium Level 141 Potassium Level 3.0 L Chloride Level 109 Carbon Dioxide Level 21 Anion Gap 11 Blood Urea Nitrogen 29 H Creatinine 1.63 H Est Glomerular 35 L Filtrat Rate mL/min Glucose Level 171 Calcium Level 8.4 Test 05/11/19 08:39 Bedside Glucose 137 Medications Medication Current Medications IV Flush (NS 3 ml) 3 ml PER PROTOCOL IV ; Start 05/09/19 at 00:00 Ondansetron HCl (Zofran Inj) 4 mg Q6H PRN IV NAUSEA/VOMITING; Start 05/09/19 at 00:00 Acetaminophen (Tylenol Tab) 650 mg Q6H PRN PO .PAIN 1-3 OR TEMP; Start 05/09/19 at 00:00 Acetaminophen/ Hydrocodone Bitart ([place] (5/325)) 1 tab Q6H PRN PO .MOD PAIN 4- 6; Start 05/09/19 at 00:00 Morphine Sulfate (morphine) 2 mg Q4H PRN IV .SEVERE PAIN 7-10; Start 05/09/19 at 00:00 Docusate Sodium (Colace) 100 mg Q12H PRN PO .CONSTIPATION; Start 05/09/19 at 00:00 Magnesium Hydroxide (Milk Of Mag) 30 ml DAILY PRN PO .CONSTIPATION; Start 05/09/19 at 00:00 Sodium Chloride 1,000 ml @ 75 mls/hr [id number] IV Last administered on 05/11/19at 05:21; Admin Dose 75 MLS/HR; Start 05/08/19 at 23:44 Albuterol/ Ipratropium (Duoneb) 3 ml Q4H RESP THERAPY PRN HHN SHORTNESS OF BREATH; Start 05/09/19 at 00:00 Vancomycin HCl (Vanco Iv Per Pharmacy) VANCOMYCIN PER PHARMACY NOTE XX ; Start 05/09/19 at 00:00 Hydralazine HCl (Apresoline) 10 mg Q6H PRN IV ELEVATED BLOOD PRESSURE Last administered on 05/09/19at 03:20; Admin Dose 10 MG; Start 05/09/19 at 00:00 Nitroglycerin (Nitroglycerin (Sl Tab) 0.4 Mg) 1 tab Q5M PRN SL ANGINA; Start 05/09/19 at 00:00 Ceftriaxone Sodium 50 ml @ 100 mls/hr Q12H IVPB Last administered on 05/11/19at 03:02; Admin Dose 100 MLS/HR; Start 05/09/19 at 03:30 Labetalol HCl (Labetalol) 10 mg Q6H PRN IV sys bp > 160; Start 05/09/19 at 05:00 Nicardipine HCl 200 ml @ 0 mls/hr TITRATE IV Last administered on 05/10/19at 18:05; Admin Dose 25 MLS/HR; Start 05/09/19 at 14:30 Vancomycin HCl 2 gm/Sodium Chloride 500 ml @ 125 mls/hr Q12H IVPB Last administered on 05/10/19at 04:07; Admin Dose 125 MLS/HR; Start 05/09/19 at 16:00; Status Hold Insulin Aspart (Novolog Insulin Pen) NOVOLOG *MODERATE* ALGORI... Q4 SC Last administered on 05/11/19at 05:20; Admin Dose 2 UNIT; Start 05/09/19 at 18:00 Miscellaneous Information 1 ea NOTE XX ; Start 05/09/19 at 17:00 Glucose (Glutose) 15 gm Q15M PRN PO DECREASED GLUCOSE; Start 05/09/19 at 17:00 Glucose (Glutose) 22.5 gm Q15M PRN PO DECREASED GLUCOSE; Start 05/09/19 at 17:00 Dextrose (D50w Syringe) 25 ml Q15M PRN IV DECREASED GLUCOSE; Start 05/09/19 at 17:00 Dextrose (D50w Syringe) 50 ml Q15M PRN IV DECREASED GLUCOSE; Start 05/09/19 at 17:00 Glucagon (Glucagen) 1 mg Q15M PRN IM DECREASED GLUCOSE; Start 05/09/19 at 17:00 Glucose (Glutose) 15 gm Q15M PRN BUCCAL DECREASED GLUCOSE; Start 05/09/19 at 17:00 Propofol 100 ml @ 3.75 mls/hr Q12H IV Last administered on 05/11/19at 08:44; Admin Dose 15 MLS/HR; Start 05/09/19 at 17:00 Famotidine (Pepcid Iv) 20 mg Q12 IV Last administered on 05/11/19at 08:39; Admin Dose 20 MG; Start 05/11/19 at 09:00 Hydralazine HCl (Apresoline) 100 mg Q8 PO Last administered on 05/11/19at 05:14; Admin Dose 100 MG; Start 05/10/19 at 14:00 Acyclovir 600 mg/ Dextrose 100 ml @ 100 mls/hr Q12H IVPB Last administered on 05/11/19at 00:02; Admin Dose 100 MLS/HR; Start 05/10/19 at 23:00 Potassium Chloride 100 ml @ 50 mls/hr Q2H IVPB Last administered on 05/11/19at 07:37; Admin Dose 50 MLS/HR; Start 05/11/19 at 07:30; Stop 05/11/19 at 11:29 Atorvastatin Calcium (Lipitor) 80 mg HS NGT ; Start 05/11/19 at 21:00 JAYSON WASSERMAN 12, 2019 09:41
[2019-05-11] MEDS: LABETALOL HCL 20MG INJ IV PRN ×2 (09:54→18:09)
--- NOTE | 2019-05-11 10:37 | PN ---
Date/Time of Note Date/Time of Note DATE: 05/11/19 TIME: 10:29 Assessment/Plan VTE Prophylaxis Risk score (from Nsg)>0 risk: 7 SCD applied (from Ns): Yes Pharmacological prophylaxis: NA/contraindicated Pharm contraindication: bleeding Lines/Catheters IV Catheter Type (from Nrsg): Peripheral IV Urinary Cath still in place: Yes Reason Cath still needed: other (indicate) (intubated) Assessment/Plan Assessment/Plan 39-year-old morbidly obese woman with history of HTN who comes in with decreased p.o. intake, lethargy preceded by delerium and nausea and vomiting. 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 #Encephalopathy - MRI brain shows several new and old infarcts. There is a small frontal bleed which may be hemorrhagic infarct. - Empiric meningitis/encephalitis treatment: Vanco, ceftriaxone, acyclovir x48 hours. CSF looks clear; likely stop antibiotics today. - Decadron also ordered on admission. - Discontinue droplet isolation - f/u HIV - Dr. Laurent following. #GARDENIA - Likely due to iatrogenic vancomycin toxicity - Dr. Haas following. #Respiratory failure - Intubated due to poor mental status - When patient is awake and following commands, extubation per pulmonary. - Start tube feeds today. # Hypertension + tachycardia: - Continue home dose hydralazine (maxed out) - Home lisinopril held for GARDENIA - Will start metoprolol - Also nicardipene gtt. # DVT prophylaxis: SCDs Result Diagram: 05/11/19 0533 05/11/19 0533 Subjective 24 Hr Interval Summary Free Text/Dictation MRI done showing multiple new and old infarcts. Sedation holiday this morning. Spoke at length to family yesterday. Patient had no recent travel, no unusual foods, no raw meat or animal brain. Had several days of nausea, vomiting, diarrhea followed by acute delerium then lethargy. Of note she was hospitalized for 4 days at [facility] 6 months ago for severe headache; but since then had re turned to her normal function. Exam/Review of Systems Exam Vitals Vital Signs Date Temp Pulse Resp B/P (MAP) Pulse Ox O2 O2 Flow FiO2 Time Delivery Rate 05/11/19 84 08:00 05/11/19 98.2 17 152/86 100 Mechanical 08:00 (108) Ventilator 05/11/19 35 05:06 05/09/19 4.0 11:46 Intake and Output 05/10/19 05/10/19 05/11/19 1515:00 23:00 07:00 IntakeIntake Total 1768.75 ml 1112.50 ml 389 ml OutputOutput Total 210 ml 325 ml 635 ml BalanceBalance 1558.75 ml 787.50 ml -246 ml Exam Gen: Morbidly obese woman lying supine in bed, intubated and sedated Eyes: Downward facing. Normal conjunctivae. Nonreactive pupils. ENT: Normal External Ears, Nose and Mouth. Moist mucous membranes. ET tube in place. Neck: Full range of motion. No meningismus. No lymphadenopathy. Resp: Mechanical breath sounds bilaterally. Cardio: Tachycardic heart rate, no murmurs appreciated. Abd: Soft, obese, nondistended, normal bowel sounds Ext: No lower extremity edema bilaterally Results Results 24hrs Laboratory Tests Test 05/10/19 12:28 05/10/19 13:00 05/10/19 15:31 05/10/19 18:09 Bedside Glucose 171 161 CSF Tubes Submitted 4 CSF Volume 6.5 CSF Appearance HAZY CSF Color PINKISH CSF WBC 4 CSF RBC 2000 H CSF Cell Count Tube TUBE#4 # CSF Mononuclear 50.0 Cells % (Auto) CSF Polynuclear WBCs 50.0 (%) CSF Glucose 118 H CSF Total Protein 139 H Vancomycin Level 57.3 *H Trough Test 05/10/19 21:25 05/11/19 00:58 05/11/19 05:12 05/11/19 05:33 Bedside Glucose 181 165 163 White Blood Count 10.6 # Red Blood Count 5.07 Hemoglobin 14.6 Hematocrit 44.8 Mean Corpuscular 88.4 Volume Mean Corpuscular 28.8 L Hemoglobin Mean Corpuscular 32.6 Hemoglobin Concent Red Cell 14.0 Distribution Width Platelet Count 159 Mean Platelet Volume 11.4 H Immature 0.500 H Granulocytes % Neutrophils % 68.4 Lymphocytes % 22.5 Monocytes % 8.3 Eosinophils % 0.1 Basophils % 0.2 Nucleated Red Blood 0.0 Cells % Immature 0.050 H Granulocytes # Neutrophils # 7.2 Lymphocytes # 2.4 Monocytes # 0.9 Eosinophils # 0.0 Basophils # 0.0 Nucleated Red Blood 0.0 Cells # Sodium Level 141 Potassium Level 3.0 L Chloride Level 109 Carbon Dioxide Level 21 Anion Gap 11 Blood Urea Nitrogen 29 H Creatinine 1.63 H Est Glomerular 35 L Filtrat Rate mL/min Glucose Level 171 Calcium Level 8.4 Test 05/11/19 08:39 Bedside Glucose 137 Medications Medication Current Medications IV Flush (NS 3 ml) 3 ml PER PROTOCOL IV ; Start 05/09/19 at 00:00 Ondansetron HCl (Zofran Inj) 4 mg Q6H PRN IV NAUSEA/VOMITING; Start 05/09/19 at 00:00 Acetaminophen (Tylenol Tab) 650 mg Q6H PRN PO .PAIN 1-3 OR TEMP; Start 05/09/19 at 00:00 Acetaminophen/ Hydrocodone Bitart ([place] (5/325)) 1 tab Q6H PRN PO .MOD PAIN 4- 6; Start 05/09/19 at 00:00 Morphine Sulfate (morphine) 2 mg Q4H PRN IV .SEVERE PAIN 7-10; Start 05/09/19 at 00:00 Docusate Sodium (Colace) 100 mg Q12H PRN PO .CONSTIPATION; Start 05/09/19 at 00:00 Magnesium Hydroxide (Milk Of Mag) 30 ml DAILY PRN PO .CONSTIPATION; Start 05/09/19 at 00:00 Sodium Chloride 1,000 ml @ 75 mls/hr [id number] IV Last administered on 05/11/19at 05:21; Admin Dose 75 MLS/HR; Start 05/08/19 at 23:44 Albuterol/ Ipratropium (Duoneb) 3 ml Q4H RESP THERAPY PRN HHN SHORTNESS OF BREATH; Start 05/09/19 at 00:00 Vancomycin HCl (Vanco Iv Per Pharmacy) VANCOMYCIN PER PHARMACY NOTE XX ; Start 05/09/19 at 00:00 Hydralazine HCl (Apresoline) 10 mg Q6H PRN IV ELEVATED BLOOD PRESSURE Last administered on 05/09/19at 03:20; Admin Dose 10 MG; Start 05/09/19 at 00:00 Nitroglycerin (Nitroglycerin (Sl Tab) 0.4 Mg) 1 tab Q5M PRN SL ANGINA; Start 05/09/19 at 00:00 Ceftriaxone Sodium 50 ml @ 100 mls/hr Q12H IVPB Last administered on 05/11/19at 03:02; Admin Dose 100 MLS/HR; Start 05/09/19 at 03:30 Labetalol HCl (Labetalol) 10 mg Q6H PRN IV sys bp > 160 Last administered on 05/11/19at 09:54; Admin Dose 10 MG; Start 05/09/19 at 05:00 Nicardipine HCl 200 ml @ 0 mls/hr TITRATE IV Last administered on 05/10/19at 18:05; Admin Dose 25 MLS/HR; Start 05/09/19 at 14:30 Vancomycin HCl 2 gm/Sodium Chloride 500 ml @ 125 mls/hr Q12H IVPB Last administered on 05/10/19at 04:07; Admin Dose 125 MLS/HR; Start 05/09/19 at 16:00; Status Hold Insulin Aspart (Novolog Insulin Pen) NOVOLOG *MODERATE* ALGORI... Q4 SC Last administered on 05/11/19at 05:20; Admin Dose 2 UNIT; Start 05/09/19 at 18:00 Miscellaneous Information 1 ea NOTE XX ; Start 05/09/19 at 17:00 Glucose (Glutose) 15 gm Q15M PRN PO DECREASED GLUCOSE; Start 05/09/19 at 17:00 Glucose (Glutose) 22.5 gm Q15M PRN PO DECREASED GLUCOSE; Start 05/09/19 at 17:00 Dextrose (D50w Syringe) 25 ml Q15M PRN IV DECREASED GLUCOSE; Start 05/09/19 at 17:00 Dextrose (D50w Syringe) 50 ml Q15M PRN IV DECREASED GLUCOSE; Start 05/09/19 at 17:00 Glucagon (Glucagen) 1 mg Q15M PRN IM DECREASED GLUCOSE; Start 05/09/19 at 17:00 Glucose (Glutose) 15 gm Q15M PRN BUCCAL DECREASED GLUCOSE; Start 05/09/19 at 17:00 Propofol 100 ml @ 3.75 mls/hr Q12H IV Last administered on 05/11/19at 08:44; Admin Dose 15 MLS/HR; Start 05/09/19 at 17:00 Famotidine (Pepcid Iv) 20 mg Q12 IV Last administered on 05/11/19at 08:39; Admin Dose 20 MG; Start 05/11/19 at 09:00 Hydralazine HCl (Apresoline) 100 mg Q8 PO Last administered on 05/11/19at 05:14; Admin Dose 100 MG; Start 05/10/19 at 14:00 Acyclovir 600 mg/ Dextrose 100 ml @ 100 mls/hr Q12H IVPB Last administered on 05/11/19at 00:02; Admin Dose 100 MLS/HR; Start 05/10/19 at 23:00 Potassium Chloride 100 ml @ 50 mls/hr Q2H IVPB Last administered on 05/11/19at 09:54; Admin Dose 50 MLS/HR; Start 05/11/19 at 07:30; Stop 05/11/19 at 11:29 Atorvastatin Calcium (Lipitor) 80 mg HS NGT ; Start 05/11/19 at 21:00 DAVID QUIÑONEZ MD May 11, 2019 10:37
[2019-05-11] MEDS: METOPROLOL 50 MG TAB NGT SCH ×2 (11:09→21:10)
[2019-05-11] MEDS: niCARdipine 25 MG in SOD CHLORIDE 0.9% 240 ML IV* SCH ×3 (11:31→23:26)
--- NOTE | 2019-05-11 12:51 | CONS ---
Assessment/Plan Assessment/Plan Hospital Course (Demo Recall) No acute changes overnight patient remains intubated afebrile WBC today 10.6 platelets 159 neutrophils 68.4 BUN 29 creatinine 1.63 Microbiology cultures have been negative CSF culture preliminary negative. MRI of the brain done yesterday revealed acute diffuse multi-vascular distribution acute infarcts in the bilateral inferior cerebellar hemisphere, the [place] and the bilateral cerebral hemispheres with involvement of the left basal ganglia and left insula additional left frontal hematoma most compatible with hemorrhagic infarct no evidence for acute hydrocephalus or herniation. Please see full report in the chart Antimicrobials: Vancomycin, acyclovir, Rocephin Chest x-ray revealed interstitial opacities throughout the lungs with small left pleural effusion effusion. CT of the brain on admission revealed 13 mm parenchymal hematoma in the left frontal lobe with surrounding edema questionable vasculitis infectious or inflammatory process old small lacunar infarct. Please see full report in the chart. CT angiogram was unremarkable. Indwelling: Endotracheal tube orogastric tube Bojorquez catheter peripheral IV Physical examination: Morbidly obese well-developed middle-aged woman who is intubated sedated in no distress. Head atraumatic normocephalic sclera nonicteric unable to assess pupils as her pupils facing down. Bugle mucosa dry. Neck is supple chest rise symmetrical breath sounds diminished bases. Heart: S1-S2. Abdomen obese soft bowel tones present. Extremities without cyanosis. Assessment: 1. Acute encephalopathy 2 to acute infarcts 2. Acute respiratory failure, rule out aspiration 3. Morbid obesity 4. Acute kidney insufficiency 5. Hypertension Plan: CSF analysis revealed no infection, CSF cx neg, dc abx, change to Cefepime to cover aspiration, f/u neurology rec-s, vent per pulmonary Consultation Date/Type/Reason Admit Date/Time May 08, 2019 at 23:21 Initial Consult Date 05/10/19 Type of Consult id Requesting Provider: DAMIEN CHOUDHARY Date/Time of Note DATE: 05/11/19 TIME: 12:49 Exam/Review of Systems Exam Vitals Vital Signs Date Temp Pulse Resp B/P (MAP) Pulse Ox O2 O2 Flow FiO2 Time Delivery Rate 05/11/19 87 22 165/93 100 Mechanical 10:00 (117) Ventilator 05/11/19 35 08:00 05/11/19 98.2 08:00 05/09/19 4.0 11:46 Intake and Output 05/10/19 05/10/19 05/11/19 1414:59 22:59 06:59 IntakeIntake Total 1922.5 ml 1137.50 ml 482.75 ml OutputOutput Total 200 ml 315 ml 675 ml BalanceBalance 1722.5 ml 822.50 ml -192.25 ml Results Result Diagram: 05/11/19 0533 05/11/19 0533 Results 24hrs Laboratory Tests Test 05/10/19 13:00 05/10/19 15:31 05/10/19 18:09 05/10/19 21:25 CSF Tubes 4 Submitted CSF Volume 6.5 CSF Appearance HAZY CSF Color PINKISH CSF WBC 4 CSF RBC 2000 H CSF Cell Count TUBE#4 Tube # CSF Mononuclear 50.0 Cells % (Auto) CSF Polynuclear 50.0 WBCs (%) CSF Glucose 118 H CSF Total Protein 139 H Vancomycin Level 57.3 *H Trough Bedside Glucose 161 181 Test 05/11/19 00:58 05/11/19 05:12 05/11/19 05:33 05/11/19 07:30 Bedside Glucose 165 163 White Blood Count 10.6 # Red Blood Count 5.07 Hemoglobin 14.6 Hematocrit 44.8 Mean Corpuscular 88.4 Volume Mean Corpuscular 28.8 L Hemoglobin Mean Corpuscular 32.6 Hemoglobin Concen t Red Cell 14.0 Distribution Width Platelet Count 159 Mean Platelet 11.4 H Volume Immature 0.500 H Granulocytes % Neutrophils % 68.4 Lymphocytes % 22.5 Monocytes % 8.3 Eosinophils % 0.1 Basophils % 0.2 Nucleated Red 0.0 Blood Cells % Immature 0.050 H Granulocytes # Neutrophils # 7.2 Lymphocytes # 2.4 Monocytes # 0.9 Eosinophils # 0.0 Basophils # 0.0 Nucleated Red 0.0 Blood Cells # Sodium Level 141 Potassium Level 3.0 L Chloride Level 109 Carbon Dioxide 21 Level Anion Gap 11 Blood Urea 29 H Nitrogen Creatinine 1.63 H Est Glomerular 35 L Filtrat Rate mL/min Glucose Level 171 Calcium Level 8.4 Urine Color YELLOW Urine Clarity SLIGHTLY CLOUDY A Urine pH 5.0 Urine Specific 1.010 [place] Urine Ketones NEGATIVE Urine Nitrite NEGATIVE Urine Bilirubin NEGATIVE Urine NEGATIVE Urobilinogen Urine Leukocyte NEGATIVE Esterase Urine Microscopic 1 RBC Urine Microscopic 1 WBC Urine Bacteria FEW A Urine Mucus FEW A Urine Hemoglobin NEGATIVE Urine Random 34.91 Creatinine Urine Random 19 L Sodium Urine Glucose NEGATIVE Urine Total 38.0 H Protein Test 05/11/19 08:39 05/11/19 10:32 Bedside Glucose 137 Erythrocyte 4 Sedimentation Rate Medications Medication Current Medications IV Flush (NS 3 ml) 3 ml PER PROTOCOL IV ; Start 05/09/19 at 00:00 Ondansetron HCl (Zofran Inj) 4 mg Q6H PRN IV NAUSEA/VOMITING; Start 05/09/19 at 00:00 Acetaminophen (Tylenol Tab) 650 mg Q6H PRN PO .PAIN 1-3 OR TEMP; Start 05/09/19 at 00:00 Acetaminophen/ Hydrocodone Bitart ([place] (5/325)) 1 tab Q6H PRN PO .MOD PAIN 4- 6; Start 05/09/19 at 00:00 Morphine Sulfate (morphine) 2 mg Q4H PRN IV .SEVERE PAIN 7-10; Start 05/09/19 at 00:00 Docusate Sodium (Colace) 100 mg Q12H PRN PO .CONSTIPATION; Start 05/09/19 at 00:00 Magnesium Hydroxide (Milk Of Mag) 30 ml DAILY PRN PO .CONSTIPATION; Start 05/09/19 at 00:00 Sodium Chloride 1,000 ml @ 75 mls/hr [id number] IV Last administered on 05/11/19at 05:21; Admin Dose 75 MLS/HR; Start 05/08/19 at 23:44 Albuterol/ Ipratropium (Duoneb) 3 ml Q4H RESP THERAPY PRN HHN SHORTNESS OF BREATH; Start 05/09/19 at 00:00 Vancomycin HCl (Vanco Iv Per Pharmacy) VANCOMYCIN PER PHARMACY NOTE XX ; Start 05/09/19 at 00:00 Hydralazine HCl (Apresoline) 10 mg Q6H PRN IV ELEVATED BLOOD PRESSURE Last administered on 05/09/19at 03:20; Admin Dose 10 MG; Start 05/09/19 at 00:00 Nitroglycerin (Nitroglycerin (Sl Tab) 0.4 Mg) 1 tab Q5M PRN SL ANGINA; Start 05/09/19 at 00:00 Ceftriaxone Sodium 50 ml @ 100 mls/hr Q12H IVPB Last administered on 05/11/19at 03:02; Admin Dose 100 MLS/HR; Start 05/09/19 at 03:30 Labetalol HCl (Labetalol) 10 mg Q6H PRN IV sys bp > 160 Last administered on 05/11/19at 09:54; Admin Dose 10 MG; Start 05/09/19 at 05:00 Vancomycin HCl 2 gm/Sodium Chloride 500 ml @ 125 mls/hr Q12H IVPB Last administered on 05/10/19at 04:07; Admin Dose 125 MLS/HR; Start 05/09/19 at 16:00; Status Hold Insulin Aspart (Novolog Insulin Pen) NOVOLOG *MODERATE* ALGORI... Q4 SC Last administered on 05/11/19at 05:20; Admin Dose 2 UNIT; Start 05/09/19 at 18:00 Miscellaneous Information 1 ea NOTE XX ; Start 05/09/19 at 17:00 Glucose (Glutose) 15 gm Q15M PRN PO DECREASED GLUCOSE; Start 05/09/19 at 17:00 Glucose (Glutose) 22.5 gm Q15M PRN PO DECREASED GLUCOSE; Start 05/09/19 at 17:00 Dextrose (D50w Syringe) 25 ml Q15M PRN IV DECREASED GLUCOSE; Start 05/09/19 at 17:00 Dextrose (D50w Syringe) 50 ml Q15M PRN IV DECREASED GLUCOSE; Start 05/09/19 at 17:00 Glucagon (Glucagen) 1 mg Q15M PRN IM DECREASED GLUCOSE; Start 05/09/19 at 17:00 Glucose (Glutose) 15 gm Q15M PRN BUCCAL DECREASED GLUCOSE; Start 05/09/19 at 17:00 Propofol 100 ml @ 3.75 mls/hr Q12H IV Last administered on 05/11/19at 08:44; Admin Dose 15 MLS/HR; Start 05/09/19 at 17:00 Famotidine (Pepcid Iv) 20 mg Q12 IV Last administered on 05/11/19at 08:39; Admin Dose 20 MG; Start 05/11/19 at 09:00 Hydralazine HCl (Apresoline) 100 mg Q8 PO Last administered on 05/11/19at 05:14; Admin Dose 100 MG; Start 05/10/19 at 14:00 Acyclovir 600 mg/ Dextrose 100 ml @ 100 mls/hr Q12H IVPB Last administered on 05/11/19at 11:12; Admin Dose 100 MLS/HR; Start 05/10/19 at 23:00 Atorvastatin Calcium (Lipitor) 80 mg HS NGT ; Start 05/11/19 at 21:00 Metoprolol Tartrate (Lopressor) 50 mg BID NGT Last administered on 05/11/19at 11:09; Admin Dose 50 MG; Start 05/11/19 at 11:00 Nicardipine HCl 25 mg/Sodium Chloride 250 ml @ 0 mls/hr TITRATE IV* Last administered on 05/11/19at 11:31; Admin Dose 25 MLS/HR; Start 05/11/19 at 11:00 ROHIT CHAWLA NP May 11, 2019 12:51
[2019-05-11] MEDS ORDERED: FUROSEMIDE 20 MG INJ IV ONE (16:30)
[2019-05-11] MEDS ORDERED: ALBUTEROL/IPRATROPIUM (NEB) 3 ML AMP HHN PRN (16:30)
[2019-05-11] MEDS: INSULIN GLARGINE [LANTus] (100 UNITS/ML) SYG SC SCH (20:06)
[2019-05-11] MEDS: ATORVASTATIN 80 MG TAB NGT SCH (21:09)
[2019-05-11] MEDS: CEFEPIME 1GM/50 ML (PMX) 50 ML IVPB SCH (21:09)
[2019-05-12] VITALS (92 sets, daily range): BP systolic 135–249; BP diastolic 64–113; PULSE 65–110; RESP 17–29
[2019-05-12] MEDS: INSULIN ASPART [NOVOLOG] 3 ML PEN SC SCH ×6 (01:03→20:58)
[2019-05-12] MEDS: hydrALAzine 20 MG INJ IV PRN ×2 (01:09→14:18)
[2019-05-12] MEDS: LABETALOL HCL 20MG INJ IV PRN ×2 (02:07→19:03)
[2019-05-12] MEDS: niCARdipine 25 MG in SOD CHLORIDE 0.9% 240 ML IV* SCH ×7 (02:55→22:36)
[2019-05-12] MEDS ORDERED: LORAZEPAM 2 MG INJ IV PRN (03:00)
[2019-05-12] MEDS ORDERED: POTASSIUM CHLORIDE 20 MEQ POWDER FOR ORAL SOLN GTB ONE (08:00)
--- NOTE | 2019-05-12 08:55 | PN ---
DATE: 05/12/2019 SUBJECTIVE: The patient remains critically ill on full ventilatory support. No other acute events n oted. No hemoptysis, hematemesis or hematochezia. OBJECTIVE: VITAL SIGNS: Blood pressure 159/78, respiratory 19, pulse 76, temperature 98.6. HEENT: Head is normocephalic. NECK: Supple. HEART: Regular rate. LUNGS: Show diminished breath sounds at the base. ABDOMEN: Soft, nontender to palpation without rebound or guarding. EXTREMITIES: Negative for clubbing, cyanosis. Trace edema. DERMATOLOGIC: No rashes. MUSCULOSKELETAL: No joint effusion. NEUROLOGIC: No change in exam. MEDICATIONS: Have been reviewed. LABORATORY DATA: Has been reviewed. IMAGING STUDIES: Have been reviewed. ASSESSMENT AND PLAN: 1. Nonoliguric acute kidney injury with previous baseline creatinine 0.72 mg/dL. Etiology of acute kidney injury is multifactorial secondary to vancomycin nephrotoxicity, possible contrast-associated nephropathy, BETO inhibitor effect. The patient's renal function has significantly improved in the la st 48 hours. Returning back to baseline. At this point, continue current treatment plan, supportive care, renally dose all meds, monitor renal function closely. Would consider discontinuing vancomyci n. 2. Hypokalemia. Replete potassium chloride. 3. Mineral bone disorder, monitor calcium and phosphorus levels. 4. Acute encephalopathy. Etiology is multifactorial secondary to multiple infarcts, cardiovascular accident. Continue to monitor. Follow up with neurology. 5. Ventilatory dependent respiratory failure. Vent settings have been reviewed. Continue to monito r. Follow up with pulmonary. 6. Hypertensive urgency. Blood pressures are improving, continue current blood pressure regimen. 7. Left frontal hematoma. Continue to monitor. The patient was seen by neurosurgery. 8. Tachyarrhythmia. Continue to monitor. 9. Systemic inflammatory response syndrome, continue antibiotic therapy. Follow up with infectious disease. Dictated By: AMELIA MACKAY DO NR/NTS Conf#: [id number] DID#: [id number] CC: DAMIEN CHOUDHARY;*EndCC*
[2019-05-12] MEDS: FAMOTIDINE 20 MG INJ IV SCH ×2 (09:02→21:00)
[2019-05-12] MEDS: METOPROLOL 50 MG TAB NGT SCH ×2 (09:02→21:01)
[2019-05-12] MEDS: CEFEPIME 1GM/50 ML (PMX) 50 ML IVPB SCH (09:04)
--- NOTE | 2019-05-12 09:33 | RADRPT ---
Echocardiogram Report Patient Name: Sondra RODRIGUEZnt ID: [id number] : 1980 (39y 3m)Study Date: 05/11/2019 2:06:51 PM Gender: FAccession #: [id number] Tech: Dany Siu [facility] Location: [address] Ref.Physician: JOSÉ TORO Height(Cm): BSA: Weight(Kg): Quality: AdequateOrder Physician: JOSÉ TORO Account #: Procedures: Echocardiographic Report: Transthoracic echocardiogram with complete 2D, M-Mode, and doppler examination. Indications: Stroke w/ Bubble Study. Measurements: 2D/M Mode Doppler Measurement Value Normal Range Measurement Value Normal Range LVIDd 2D 4.1 [ 3.8 - 5.2 ] cm AV Peak Kimo 1.7 [ 100.0 - 170.0 ] cm/sec LVIDs 2D 2.8 [ 2.2 - 3.5 ] cm AV Peak PG 11.0 [ 2.0 - 9.0 ] mmHg LVPWd 2D 1.2 [ 0.6 - 0.9 ] cm LVOT Peak Kimo 1.1 [ 70.0 - 110.0 ] cm/sec IVSd 2D 1.4 [ 0.6 - 0.9 ] cm LVOT Peak PG 5.0 [ 2.0 - 6.0 ] mmHg AoR Diam 2D 2.5 [ 2.3 - 3.1 ] cm MV E Peak Kimo 1.2 [ 60.0 - 130.0 ] cm/sec EDV 2D 75.9 [ 46.0 - 106.0 ] ml MV A Peak Kimo 0.8 [ 100.0 - 120.0 ] cm/sec ESV 2D 29.8 [ 14.0 - 42.0 ] ml MV E/A 1.4 [ 0.8 - 1.5 ] ratio EF 2D 60.7 [ 54.0 - 74.0 ] percent MV Decel Time 236 [ 104 - 258 ] msec LA Dimen 2D 3.6 [ 2.7 - 3.8 ] cm Lat E` Kimo 0.1 [ 10.0 - 15.0 ] cm/sec Lateral E/E` 14.7 [ 1.0 - 2.0 ] ratio MV E/A 1.4 [ 0.8 - 1.5 ] ratio TR Peak Kimo 2.7 [ 100.0 - 280.0 ] cm/sec TR Peak PG 28.0 mmHg RVSP 43.0 [ 10.0 - 36.0 ] mmHg Findings: Left Ventricle: Normal left ventricular systolic function. Normal left ventricular cavity size. Moderate to severe concentric left ventricular hypertrophy. Ejection fraction is visually estimated at 55 %. Tissue Doppler/Mitral Doppler indices are consistent with pseudonormalization with mildly elevated left atrial pressure (Stage II diastolic dysfunction). Right Ventricle: Normal right ventricular systolic function. Mild enlargement of right ventricle. Left Atrium: There is moderate enlargement of left atrium. Right Atrium: There is moderate enlargement of right atrium. Atrial Septum: Bubble study was performed with and with out valsalva indicating no evidence of intra atrial shunt. Mitral Valve: Normal appearance of the mitral valve. Normal appearance and function of the mitral valve with trace physiologic regurgitation. Aortic Valve: Normal appearance of the aortic valve. Mild aortic valve regurgitation. Tricuspid Valve: Normal appearance of the tricuspid valve. The estimated Peak RVSP is 43 mmHg. There is mild to moderate tricuspid regurgitation. Pericardium: Normal pericardium with no significant pericardial effusion. Aorta: Normal aortic root. IVC: Dilated IVC without respiratory collapse, however, patient on ventilator. Conclusions: Normal left ventricular systolic function. Normal left ventricular cavity size. Moderate to severe concentric left ventricular hypertrophy. Ejection fraction is visually estimated at 55 %. Tissue Doppler/Mitral Doppler indices are consistent with pseudonormalization with mildly elevated left atrial pressure (Stage II diastolic dysfunction). Bubble study was performed with and with out valsalva indicating no evidence of intra atrial shunt. Normal appearance of the aortic valve. Mild aortic valve regurgitation. The estimated Peak RVSP is 43 mmHg. Dilated IVC without respiratory collapse, however, patient on ventilator. Electronically Signed By: Nasir Denis 2019-05-12 09:32:38 PDT
--- NOTE | 2019-05-12 09:57 | CONS ---
Assessment/Plan Assessment/Plan Assessment/Plan (Daily) Chest x-ray is essentially unremarkable very minimal pulmonary vascular congestion. Ventilator setting; AC of 16, tidal volume 500, PEEP of 5, 30% FiO2. Patient is currently on nicardipine drip at 8 mg/h. Assessment and recommendations; 1. Patient admitted with acute mental status changes due to intracranial hemorrhage causing respiratory failure. 2. Severe enthesopathy with very slight interval improvement to the point with the patient is opening eyes on sternal rubbing 3. History of severe hypertension. Patient currently on appropriate antihypertensive regimen and still requiring nicardipine drip. 4. Acute mild renal insufficiency with interval correction of renal function. 5. Currently there is no evidence of any pneumonia. 6. Thrombocytopenia. Continue current supportive care. Continue to monitor neurological status. Monitor blood pressure. Weaning from ventilator will depend upon adequate mental status recovery. Prognosis still guarded. 35 minutes of critical care time was spent evaluating the patient. Consultation Date/Type/Reason Admit Date/Time May 08, 2019 at 23:21 Initial Consult Date 05/10/19 Type of Consult Pulmonary/critical care Patient is a 39-year-old lady who came into the hospital with complaints of nausea vomiting going on for the last 2 days with headache. Upon evaluation patient was extremely hypertensive then developed respiratory failure requiring intubation. Emergent CT imaging of the head was done which is showing intracranial hemorrhage. Patient has remained completely unresponsive. Was started on propofol drip for tachypnea. Past medical history; 1. Hypertension. Medications; reviewed. Allergies; none. Social history, family history, occupational history not available. Review of system; unable to be obtained. General exam; young female, orally intubated, sedated, currently in no distress. Requesting Provider: DAMIEN CHOUDHARY Date/Time of Note DATE: 05/12/19 TIME: 09:54 24 HR Interval Summary Free Text/Dictation Patient's condition is critical. Still remains hypertensive on nicardipine drip. No overt seizure activity reported. General exam; young female, orally intubated, somewhat responsive on sternal rubbing and name calling. Currently no distress. Orally intubated. Exam/Review of Systems Exam Vitals Vital Signs Date Temp Pulse Resp B/P (MAP) Pulse Ox O2 O2 Flow FiO2 Time Delivery Rate 05/12/19 98.4 92 21 100 Mechanical 08:15 Ventilator 05/12/19 30 05:31 6/10/19 4.0 11:46 Intake and Output 05/11/19 05/11/19 05/12/19 1515:00 23:00 07:00 IntakeIntake Total 1087.5 ml 1205 ml 830 ml OutputOutput Total 975 ml 925 ml 775 ml BalanceBalance 112.5 ml 280 ml 55 ml Exam H EENT exam; supple neck, no JVD. No lymphadenopathy. Midline trachea. No thyromegaly. Pupils are small bilaterally. Patient has good dentition. Orally intubated. No neck masses. Chest exam; clear to auscultation. S1-S2 audible, no murmurs. Regular rhythm. Abdomen exam; soft, nondistended. No organomegaly. Bowel sounds audible. Extremity exam; no peripheral edema clubbing. Pulses 2+. [employer] exam; patient is opening eyes on name calling and sternal rubbing. Does not follow any commands. Results Result Diagram: 05/12/19 0440 05/12/19 0440 Results 24hrs Laboratory Tests Test 05/11/19 10:32 05/11/19 13:33 05/11/19 16:33 05/11/19 21:08 Erythrocyte 4 Sedimentation Rate Rapid Plasma Reagin NONREACTIVE HIV (1&2) Antibody NEGATIVE Bedside Glucose 226 H 178 137 Test 05/12/19 00:56 05/12/19 04:40 05/12/19 05:13 05/12/19 09:24 Bedside Glucose 158 173 145 White Blood Count 6.6 # Red Blood Count 4.90 Hemoglobin 14.1 Hematocrit 43.4 Mean Corpuscular 88.6 Volume Mean Corpuscular 28.8 L Hemoglobin Mean Corpuscular 32.5 Hemoglobin Concent Red Cell 14.1 Distribution Width Platelet Count 111 #L Mean Platelet Volume 12.5 H Immature 0.500 H Granulocytes % Neutrophils % 73.9 Lymphocytes % 16.3 Monocytes % 8.3 Eosinophils % 0.8 Basophils % 0.2 Nucleated Red Blood 0.0 Cells % Immature 0.030 Granulocytes # Neutrophils # 4.9 Lymphocytes # 1.1 Monocytes # 0.6 Eosinophils # 0.1 Basophils # 0.0 Nucleated Red Blood 0.0 Cells # Sodium Level 141 Potassium Level 3.3 L Chloride Level 111 H Carbon Dioxide Level 20 L Anion Gap 10 Blood Urea Nitrogen 22 H Creatinine 0.98 Est Glomerular > 60 Filtrat Rate mL/min Glucose Level 168 Calcium Level 8.2 L Medications Medication Current Medications IV Flush (NS 3 ml) 3 ml PER PROTOCOL IV ; Start 05/09/19 at 00:00 Ondansetron HCl (Zofran Inj) 4 mg Q6H PRN IV NAUSEA/VOMITING; Start 05/09/19 at 00:00 Acetaminophen (Tylenol Tab) 650 mg Q6H PRN PO .PAIN 1-3 OR TEMP; Start 05/09/19 at 00:00 Acetaminophen/ Hydrocodone Bitart ([place] (5/325)) 1 tab Q6H PRN PO .MOD PAIN 4- 6; Start 05/09/19 at 00:00 Morphine Sulfate (morphine) 2 mg Q4H PRN IV .SEVERE PAIN 7-10; Start 05/09/19 at 00:00 Docusate Sodium (Colace) 100 mg Q12H PRN PO .CONSTIPATION; Start 05/09/19 at 00:00 Magnesium Hydroxide (Milk Of Mag) 30 ml DAILY PRN PO .CONSTIPATION; Start 05/09/19 at 00:00 Hydralazine HCl (Apresoline) 10 mg Q6H PRN IV ELEVATED BLOOD PRESSURE Last administered on 05/12/19at 01:09; Admin Dose 10 MG; Start 05/09/19 at 00:00 Nitroglycerin (Nitroglycerin (Sl Tab) 0.4 Mg) 1 tab Q5M PRN SL ANGINA; Start 05/09/19 at 00:00 Labetalol HCl (Labetalol) 10 mg Q6H PRN IV sys bp > 160 Last administered on 05/12/19at 02:07; Admin Dose 10 MG; Start 05/09/19 at 05:00 Insulin Aspart (Novolog Insulin Pen) NOVOLOG *MODERATE* ALGORI... Q4 SC Last administered on 05/12/19at 09:34; Admin Dose 2 UNIT; Start 05/09/19 at 18:00 Miscellaneous Information 1 ea NOTE XX ; Start 05/09/19 at 17:00 Glucose (Glutose) 15 gm Q15M PRN PO DECREASED GLUCOSE; Start 05/09/19 at 17:00 Glucose (Glutose) 22.5 gm Q15M PRN PO DECREASED GLUCOSE; Start 05/09/19 at 17:00 Dextrose (D50w Syringe) 25 ml Q15M PRN IV DECREASED GLUCOSE; Start 05/09/19 at 17:00 Dextrose (D50w Syringe) 50 ml Q15M PRN IV DECREASED GLUCOSE; Start 05/09/19 at 17:00 Glucagon (Glucagen) 1 mg Q15M PRN IM DECREASED GLUCOSE; Start 05/09/19 at 17:00 Glucose (Glutose) 15 gm Q15M PRN BUCCAL DECREASED GLUCOSE; Start 05/09/19 at 17:00 Propofol 100 ml @ 3.75 mls/hr Q12H IV Last administered on 05/11/19 08:44; Admin Dose 15 MLS/HR; Start 05/09/19 at 17:00; Status Hold Famotidine (Pepcid Iv) 20 mg Q12 IV Last administered on 05/12/19 09:02; Admin Dose 20 MG; Start 05/11/19 at 09:00 Hydralazine HCl (Apresoline) 100 mg Q8 PO Last administered on 05/12/19 05:26; Admin Dose 100 MG; Start 05/10/19 at 14:00 Atorvastatin Calcium (Lipitor) 80 mg HS NGT Last administered on 05/11/19 21:09; Admin Dose 80 MG; Start 05/11/19 at 21:00 Metoprolol Tartrate (Lopressor) 50 mg BID NGT Last administered on 05/12/19 09:02; Admin Dose 50 MG; Start 05/11/19 at 11:00 Nicardipine HCl 25 mg/Sodium Chloride 250 ml @ 0 mls/hr TITRATE IV* Last administered on 05/12/19 06:41; Admin Dose 50 MLS/HR; Start 05/11/19 at 11:00 Cefepime HCl 50 ml @ 100 mls/hr Q12 IVPB Last administered on 05/12/19 09:04; Admin Dose 100 MLS/HR; Start 05/11/19 at 21:00 Insulin Glargine (Lantus) 10 units DAILY@2000 SC Last administered on 05/11/19 20:06; Admin Dose 10 UNITS; Start 05/11/19 at 20:00 JAYSON WASSERMAN 13, 2019 09:57
--- NOTE | 2019-05-12 10:53 | CONS ---
Assessment/Plan Assessment/Plan Assessment/Plan (Recall) 39 F c/ reported Hx of DM2, who presents for evaluation of multiple complaints, including GI Sx...and eventual ams, for which neurology is consulted. 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 The clinical picture was initially concerning for meningoencephalitis..CSF evaluation is inconsistent w/ infection...the erythrocytosis possibly due to a traumatic tap.. Head CT was notable for a left frontal hyperdensity, likely hemorrhagic t ransformation of an above referenced focus of acute ischemia is the context of severe hypertension.. CTA head and neck is negative for multifocal stenoses, which might otherwise suggests vasculitis, etc. EEG was without epileptiform activity Echo is unrevealing Ammonia wnl, HIV/RPR neg, ESR wnl Hypercoagulability panel is in progress P: Continue to hold all sedating medications where possible Continued BP control to goal SBP 120-160 Hold antiplatelets/anticoagulants til 05/15, then start baby asa daily thereafter.. Other management and supportive care per primary Will follow clinically Consultation Date/Type/Reason Admit Date/Time May 08, 2019 at 23:21 Type of Consult Neurology Reason for Consultation ams Requesting Provider: DAMIEN CHOUDHARY Date/Time of Note DATE: 05/12/19 TIME: 10:50 24 HR Interval Summary Free Text/Dictation Continues icu care Exam/Review of Systems Exam Vitals Vital Signs Date Temp Pulse Resp B/P (MAP) Pulse Ox O2 O2 Flow FiO2 Time Delivery Rate 05/12/19 98.4 92 21 100 Mechanical 08:15 Ventilator 05/12/19 30 05:31 05/09/19 4.0 11:46 Intake and Output 05/11/19 05/11/19 05/12/19 1515:00 23:00 07:00 IntakeIntake Total 1087.5 ml 1205 ml 830 ml OutputOutput Total 975 ml 925 ml 775 ml BalanceBalance 112.5 ml 280 ml 55 ml Exam PE: Gen Appearance: No Apparent Distress HEENT: Intubated Cardiovascular: Regular rate Abdomen: Soft Extremities: Dry NE: The patient was obtunded and nonverbal. Cranial nerve examination was limited by mental status. Pupils were equal and re active to light. Gave was downward. There was no afferent pupillary defect. Funduscopic examination was limited. Face was grossly symmetric, w/ present corneal and cough reflexes. Tone was normal. Muscle bulk was normal. I did not see fasciculations. The patient withdrew to noxious stimulation x 4. Coordination and gait testing was limited by mental status. Arm and leg reflexes were within normal limits and symmetric. Skinner's sign was absent. Plantar responses were flexor. Results Result Diagram: 05/12/19 0440 05/12/19 0440 Results 24hrs Laboratory Tests Test 05/11/19 13:33 05/11/19 16:33 05/11/19 21:08 05/12/19 00:56 Bedside Glucose 226 H 178 137 158 Test 05/12/19 04:40 05/12/19 05:13 05/12/19 09:24 White Blood Count 6.6 # Red Blood Count 4.90 Hemoglobin 14.1 Hematocrit 43.4 Mean Corpuscular 88.6 Volume Mean Corpuscular 28.8 L Hemoglobin Mean Corpuscular 32.5 Hemoglobin Concent Red Cell 14.1 Distribution Width Platelet Count 111 #L Mean Platelet Volume 12.5 H Immature 0.500 H Granulocytes % Neutrophils % 73.9 Lymphocytes % 16.3 Monocytes % 8.3 Eosinophils % 0.8 Basophils % 0.2 Nucleated Red Blood 0.0 Cells % Immature 0.030 Granulocytes # Neutrophils # 4.9 Lymphocytes # 1.1 Monocytes # 0.6 Eosinophils # 0.1 Basophils # 0.0 Nucleated Red Blood 0.0 Cells # Sodium Level 141 Potassium Level 3.3 L Chloride Level 111 H Carbon Dioxide Level 20 L Anion Gap 10 Blood Urea Nitrogen 22 H Creatinine 0.98 Est Glomerular > 60 Filtrat Rate mL/min Glucose Level 168 Calcium Level 8.2 L Bedside Glucose 173 145 Medications Medication Current Medications IV Flush (NS 3 ml) 3 ml PER PROTOCOL IV ; Start 05/09/19 at 00:00 Ondansetron HCl (Zofran Inj) 4 mg Q6H PRN IV NAUSEA/VOMITING; Start 05/09/19 at 00:00 Acetaminophen (Tylenol Tab) 650 mg Q6H PRN PO .PAIN 1-3 OR TEMP; Start 05/09/19 at 00:00 Acetaminophen/ Hydrocodone Bitart ([place] (5/325)) 1 tab Q6H PRN PO .MOD PAIN 4- 6; Start 05/09/19 at 00:00 Morphine Sulfate (morphine) 2 mg Q4H PRN IV .SEVERE PAIN 7-10; Start 05/09/19 at 00:00 Docusate Sodium (Colace) 100 mg Q12H PRN PO .CONSTIPATION; Start 05/09/19 at 00:00 Magnesium Hydroxide (Milk Of Mag) 30 ml DAILY PRN PO .CONSTIPATION; Start 05/09/19 at 00:00 Hydralazine HCl (Apresoline) 10 mg Q6H PRN IV ELEVATED BLOOD PRESSURE Last administered on 05/12/19at 01:09; Admin Dose 10 MG; Start 05/09/19 at 00:00 Nitroglycerin (Nitroglycerin (Sl Tab) 0.4 Mg) 1 tab Q5M PRN SL ANGINA; Start 05/09/19 at 00:00 Labetalol HCl (Labetalol) 10 mg Q6H PRN IV sys bp > 160 Last administered on 05/12/19at 02:07; Admin Dose 10 MG; Start 05/09/19 at 05:00 Insulin Aspart (Novolog Insulin Pen) NOVOLOG *MODERATE* ALGORI... Q4 SC Last administered on 05/12/19at 09:34; Admin Dose 2 UNIT; Start 05/09/19 at 18:00 Miscellaneous Information 1 ea NOTE XX ; Start 05/09/19 at 17:00 Glucose (Glutose) 15 gm Q15M PRN PO DECREASED GLUCOSE; Start 05/09/19 at 17:00 Glucose (Glutose) 22.5 gm Q15M PRN PO DECREASED GLUCOSE; Start 05/09/19 at 17:00 Dextrose (D50w Syringe) 25 ml Q15M PRN IV DECREASED GLUCOSE; Start 05/09/19 at 17:00 Dextrose (D50w Syringe) 50 ml Q15M PRN IV DECREASED GLUCOSE; Start 05/09/19 at 17:00 Glucagon (Glucagen) 1 mg Q15M PRN IM DECREASED GLUCOSE; Start 05/09/19 at 17:00 Glucose (Glutose) 15 gm Q15M PRN BUCCAL DECREASED GLUCOSE; Start 05/09/19 at 17:00 Propofol 100 ml @ 3.75 mls/hr Q12H IV Last administered on 05/11/19at 08:44; Admin Dose 15 MLS/HR; Start 05/09/19 at 17:00; Status Hold Famotidine (Pepcid Iv) 20 mg Q12 IV Last administered on 05/12/19 09:02; Admin Dose 20 MG; Start 05/11/19 at 09:00 Hydralazine HCl (Apresoline) 100 mg Q8 PO Last administered on 05/12/19 05:26; Admin Dose 100 MG; Start 05/10/19 at 14:00 Atorvastatin Calcium (Lipitor) 80 mg HS NGT Last administered on 05/11/19 21:09; Admin Dose 80 MG; Start 05/11/19 at 21:00 Metoprolol Tartrate (Lopressor) 50 mg BID NGT Last administered on 05/12/19 09:02; Admin Dose 50 MG; Start 05/11/19 at 11:00 Nicardipine HCl 25 mg/Sodium Chloride 250 ml @ 0 mls/hr TITRATE IV* Last administered on 05/12/19 06:41; Admin Dose 50 MLS/HR; Start 05/11/19 at 11:00 Cefepime HCl 50 ml @ 100 mls/hr Q12 IVPB Last administered on 05/12/19 09:04; Admin Dose 100 MLS/HR; Start 05/11/19 at 21:00 Insulin Glargine (Lantus) 10 units DAILY@2000 SC Last administered on 05/11/19 20:06; Admin Dose 10 UNITS; Start 05/11/19 at 20:00 JOSÉ TORO May 12, 2019 10:53
--- NOTE | 2019-05-12 13:41 | CONS ---
Assessment/Plan Assessment/Plan Hospital Course (Demo Recall) No acute changes patient remains intubated afebrile WBC 6.6 no shift no bands BUN 22 creatinine 0.98 Microbiology cultures have been negative CSF culture preliminary negative. MRI of the brain done yesterday revealed acute diffuse multi-vascular distribution acute infarcts in the bilateral inferior cerebellar hemisphere, the [place] and the bilateral cerebral hemispheres with involvement of the left basal ganglia and left insula additional left frontal hematoma most compatible with hemorrhagic infarct no evidence for acute hydrocephalus or herniation. Please see full report in the chart Antimicrobials: Vancomycin, acyclovir, Rocephin Chest x-ray revealed interstitial opacities throughout the lungs with small left pleural effusion effusion. CT of the brain on admission revealed 13 mm parenchymal hematoma in the left frontal lobe with surrounding edema questionable vasculitis infectious or inflammatory process old small lacunar infarct. Please see full report in the chart. CT angiogram was unremarkable. Indwelling: Endotracheal tube orogastric tube Bojorquez catheter peripheral IV Physical examination: Morbidly obese well-developed middle-aged woman who is intubated sedated in no distress. Head atraumatic normocephalic sclera nonicteric unable to assess pupils as her pupils facing down. Bugle mucosa dry. Neck is supple chest rise symmetrical breath sounds diminished bases. Heart: S1-S2. Abdomen obese soft bowel tones present. Extremities without cyanosis. Assessment: 1. Acute encephalopathy 2 to acute infarcts 2. Acute respiratory failure, rule out aspiration 3. Morbid obesity 4. Acute kidney insufficiency 5. Hypertension Plan: Patient remains hemodynamically stable, chest x-ray revealed no evidence for pneumonia, will discontinue antibiotics and monitor. Follow pulmonary and neurology recommendations Consultation Date/Type/Reason Admit Date/Time May 08, 2019 at 23:21 Initial Consult Date 05/10/19 Type of Consult id Requesting Provider: DAMIEN CHOUDHARY Date/Time of Note DATE: 05/12/19 TIME: 13:39 Exam/Review of Systems Exam Vitals Vital Signs Date Temp Pulse Resp B/P (MAP) Pulse Ox O2 O2 Flow FiO2 Time Delivery Rate 05/12/19 98.4 85 19 176/101 100 Mechanical 13:00 (126) Ventilator 05/12/19 30 05:31 05/09/19 4.0 11:46 Intake and Output 05/11/19 05/11/19 05/12/19 1414:59 22:59 06:59 IntakeIntake Total 1102.5 ml 1150 ml 985 ml OutputOutput Total 975 ml 875 ml 925 ml BalanceBalance 127.5 ml 275 ml 60 ml Results Result Diagram: 05/12/19 0440 05/12/19 0440 Results 24hrs Laboratory Tests Test 05/11/19 16:33 05/11/19 21:08 05/12/19 00:56 05/12/19 04:40 Bedside Glucose 178 137 158 White Blood Count 6.6 # Red Blood Count 4.90 Hemoglobin 14.1 Hematocrit 43.4 Mean Corpuscular 88.6 Volume Mean Corpuscular 28.8 L Hemoglobin Mean Corpuscular 32.5 Hemoglobin Concent Red Cell 14.1 Distribution Width Platelet Count 111 #L Mean Platelet 12.5 H Volume Immature 0.500 H Granulocytes % Neutrophils % 73.9 Lymphocytes % 16.3 Monocytes % 8.3 Eosinophils % 0.8 Basophils % 0.2 Nucleated Red 0.0 Blood Cells % Immature 0.030 Granulocytes # Neutrophils # 4.9 Lymphocytes # 1.1 Monocytes # 0.6 Eosinophils # 0.1 Basophils # 0.0 Nucleated Red 0.0 Blood Cells # Sodium Level 141 Potassium Level 3.3 L Chloride Level 111 H Carbon Dioxide 20 L Level Anion Gap 10 Blood Urea 22 H Nitrogen Creatinine 0.98 Est Glomerular > 60 Filtrat Rate mL/min Glucose Level 168 Calcium Level 8.2 L Test 05/12/19 05:13 05/12/19 09:24 05/12/19 12:23 05/12/19 12:51 Bedside Glucose 173 145 135 Lab Scanned Report REFERENCE LAB Medications Medication Current Medications IV Flush (NS 3 ml) 3 ml PER PROTOCOL IV ; Start 05/09/19 at 00:00 Ondansetron HCl (Zofran Inj) 4 mg Q6H PRN IV NAUSEA/VOMITING; Start 05/09/19 at 00:00 Acetaminophen (Tylenol Tab) 650 mg Q6H PRN PO .PAIN 1-3 OR TEMP; Start 05/09/19 at 00:00 Acetaminophen/ Hydrocodone Bitart ([place] (5/325)) 1 tab Q6H PRN PO .MOD PAIN 4- 6; Start 05/09/19 at 00:00 Morphine Sulfate (morphine) 2 mg Q4H PRN IV .SEVERE PAIN 7-10; Start 05/09/19 at 00:00 Docusate Sodium (Colace) 100 mg Q12H PRN PO .CONSTIPATION; Start 05/09/19 at 00:00 Magnesium Hydroxide (Milk Of Mag) 30 ml DAILY PRN PO .CONSTIPATION; Start 05/09/19 at 00:00 Hydralazine HCl (Apresoline) 10 mg Q6H PRN IV ELEVATED BLOOD PRESSURE Last administered on 05/12/19at 01:09; Admin Dose 10 MG; Start 05/09/19 at 00:00 Nitroglycerin (Nitroglycerin (Sl Tab) 0.4 Mg) 1 tab Q5M PRN SL ANGINA; Start 05/09/19 at 00:00 Labetalol HCl (Labetalol) 10 mg Q6H PRN IV sys bp > 160 Last administered on 05/12/19at 02:07; Admin Dose 10 MG; Start 05/09/19 at 05:00 Insulin Aspart (Novolog Insulin Pen) NOVOLOG *MODERATE* ALGORI... Q4 SC Last administered on 05/12/19at 09:34; Admin Dose 2 UNIT; Start 05/09/19 at 18:00 Miscellaneous Information 1 ea NOTE XX ; Start 05/09/19 at 17:00 Glucose (Glutose) 15 gm Q15M PRN PO DECREASED GLUCOSE; Start 05/09/19 at 17:00 Glucose (Glutose) 22.5 gm Q15M PRN PO DECREASED GLUCOSE; Start 05/09/19 at 17:00 Dextrose (D50w Syringe) 25 ml Q15M PRN IV DECREASED GLUCOSE; Start 05/09/19 at 17:00 Dextrose (D50w Syringe) 50 ml Q15M PRN IV DECREASED GLUCOSE; Start 05/09/19 at 17:00 Glucagon (Glucagen) 1 mg Q15M PRN IM DECREASED GLUCOSE; Start 05/09/19 at 17:00 Glucose (Glutose) 15 gm Q15M PRN BUCCAL DECREASED GLUCOSE; Start 05/09/19 at 17:00 Propofol 100 ml @ 3.75 mls/hr Q12H IV Last administered on 05/11/19at 08:44; A dmin Dose 15 MLS/HR; Start 05/09/19 at 17:00; Status Hold Famotidine (Pepcid Iv) 20 mg Q12 IV Last administered on 05/12/19 09:02; Admin Dose 20 MG; Start 05/11/19 at 09:00 Hydralazine HCl (Apresoline) 100 mg Q8 PO Last administered on 05/12/19 13:01; Admin Dose 100 MG; Start 05/10/19 at 14:00 Atorvastatin Calcium (Lipitor) 80 mg HS NGT Last administered on 05/11/19 21:09; Admin Dose 80 MG; Start 05/11/19 at 21:00 Metoprolol Tartrate (Lopressor) 50 mg BID NGT Last administered on 05/12/19 09:02; Admin Dose 50 MG; Start 05/11/19 at 11:00 Nicardipine HCl 25 mg/Sodium Chloride 250 ml @ 0 mls/hr TITRATE IV* Last administered on 05/12/19 11:01; Admin Dose 50 MLS/HR; Start 05/11/19 at 11:00 Cefepime HCl 50 ml @ 100 mls/hr Q12 IVPB Last administered on 05/12/19 09:04; Admin Dose 100 MLS/HR; Start 05/11/19 at 21:00 Insulin Glargine (Lantus) 10 units DAILY@2000 SC Last administered on 05/11/19 20:06; Admin Dose 10 UNITS; Start 05/11/19 at 20:00 ROHIT CHAWLA NP May 12, 2019 13:41
--- NOTE | 2019-05-12 15:00 | PN ---
Date/Time of Note Date/Time of Note DATE: 05/12/19 TIME: 14:58 Assessment/Plan VTE Prophylaxis Risk score (from Ns)>0 risk: 6 SCD applied (from [facility] [place]): Yes Pharmacological prophylaxis: NA/contraindicated Pharm contraindication: bleeding Lines/[facility] IV Urinary Cath still in place: Yes Reason Cath still needed: other (indicate) (intubated) Assessment/Plan Assessment/Plan 39-year-old morbidly obese woman with history of HTN who comes in with decreased p.o. intake, lethargy preceded by delerium and nausea and vomiting. 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 #Encephalopathy - MRI brain shows several new and old infarcts. There is a small frontal bleed which may be hemorrhagic infarct. - No concern for infectious meningitis, stop antibiotics. - Decadron also ordered on admission. - Discontinue droplet isolation - HIV negative - Dr. Laurent following. - Limit sedation as much as possible. #GARDENIA - Likely due to iatrogenic vancomycin toxicity - Dr. Haas following. #Respiratory failure - Intubated due to poor mental status - When patient is awake and following commands, extubation per pulmonary. - Start tube feeds today. # Hypertension + tachycardia: - Continue home dose hydralazine (maxed out) - Home lisinopril held for GARDENIA - Will start metoprolol - Also nicardipene gtt. # DVT prophylaxis: SCDs Result Diagram: 05/12/1943905/12/19439 Subjective 24 Hr Interval Summary Free Text/Dictation No acute overnight events. Off sedation patient does move R arm but not left arm. Opens eyes spontaneously. Exam/Review of Systems Exam Vitals Vital Signs Date Temp Pulse Resp B/P (MAP) Pulse Ox O2 O2 Flow FiO2 Time Delivery Rate 05/12/19 98.4 85 19 176/101 100 Mechanical 13:00 (126) Ventilator 05/12/19 30 05:31 05/09/19 4.0 11:46 Intake and Output 05/11/19 05/11/19 05/12/19 1515:00 23:00 07:00 IntakeIntake Total 1087.5 ml 1205 ml 830 ml OutputOutput Total 975 ml 925 ml 775 ml BalanceBalance 112.5 ml 280 ml 55 ml Exam Gen: Morbidly obese woman lying supine in bed, intubated and sedated Eyes: Downward facing. Normal conjunctivae. Nonreactive pupils. ENT: Normal External Ears, Nose and Mouth. Moist mucous membranes. ET tube in place. Neck: Full range of motion. No meningismus. No lymphadenopathy. Resp: Mechanical breath sounds bilaterally. Cardio: Tachycardic heart rate, no murmurs appreciated. Abd: Soft, obese, nondistended, normal bowel sounds Ext: No lower extremity edema bilaterally Neuro: Moving R arm spontaneuosly, not L arm. Opens eyes spontaneously. Results Results 24hrs Laboratory Tests Test 05/11/19 16:33 05/11/19 21:08 05/12/19 00:56 05/12/19 04:40 Bedside Glucose 178 137 158 White Blood Count 6.6 # Red Blood Count 4.90 Hemoglobin 14.1 Hematocrit 43.4 Mean Corpuscular 88.6 Volume Mean Corpuscular 28.8 L Hemoglobin Mean Corpuscular 32.5 Hemoglobin Concent Red Cell 14.1 Distribution Width Platelet Count 111 #L Mean Platelet 12.5 H Volume Immature 0.500 H Granulocytes % Neutrophils % 73.9 Lymphocytes % 16.3 Monocytes % 8.3 Eosinophils % 0.8 Basophils % 0.2 Nucleated Red 0.0 Blood Cells % Immature 0.030 Granulocytes # Neutrophils # 4.9 Lymphocytes # 1.1 Monocytes # 0.6 Eosinophils # 0.1 Basophils # 0.0 Nucleated Red 0.0 Blood Cells # Sodium Level 141 Potassium Level 3.3 L Chloride Level 111 H Carbon Dioxide 20 L Level Anion Gap 10 Blood Urea 22 H Nitrogen Creatinine 0.98 Est Glomerular > 60 Filtrat Rate mL/min Glucose Level 168 Calcium Level 8.2 L Test 05/12/19 05:13 05/12/19 09:24 05/12/19 12:23 05/12/19 12:51 Bedside Glucose 173 145 135 Lab Scanned Report REFERENCE LAB Medications Medication Current Medications IV Flush (NS 3 ml) 3 ml PER PROTOCOL IV ; Start 05/09/19 at 00:00 Ondansetron HCl (Zofran Inj) 4 mg Q6H PRN IV NAUSEA/VOMITING; Start 05/09/19 at 00:00 Acetaminophen (Tylenol Tab) 650 mg Q6H PRN PO .PAIN 1-3 OR TEMP; Start 05/09/19 at 00:00 Acetaminophen/ Hydrocodone Bitart ([place] (5/325)) 1 tab Q6H PRN PO .MOD PAIN 4- 6; Start 05/09/19 at 00:00 Morphine Sulfate (morphine) 2 mg Q4H PRN IV .SEVERE PAIN 7-10; Start 05/09/19 at 00:00 Docusate Sodium (Colace) 100 mg Q12H PRN PO .CONSTIPATION; Start 05/09/19 at 00:00 Magnesium Hydroxide (Milk Of Mag) 30 ml DAILY PRN PO .CONSTIPATION; Start 05/09/19 at 00:00 Hydralazine HCl (Apresoline) 10 mg Q6H PRN IV ELEVATED BLOOD PRESSURE Last administered on 05/12/19at 14:18; Admin Dose 10 MG; Start 05/09/19 at 00:00 Nitroglycerin (Nitroglycerin (Sl Tab) 0.4 Mg) 1 tab Q5M PRN SL ANGINA; Start 05/09/19 at 00:00 Labetalol HCl (Labetalol) 10 mg Q6H PRN IV sys bp > 160 Last administered on 05/12/19at 02:07; Admin Dose 10 MG; Start 05/09/19 at 05:00 Insulin Aspart (Novolog Insulin Pen) NOVOLOG *MODERATE* ALGORI... Q4 SC Last administered on 05/12/19at 09:34; Admin Dose 2 UNIT; Start 05/09/19 at 18:00 Miscellaneous Information 1 ea NOTE XX ; Start 05/09/19 at 17:00 Glucose (Glutose) 15 gm Q15M PRN PO DECREASED GLUCOSE; Start 05/09/19 at 17:00 Glucose (Glutose) 22.5 gm Q15M PRN PO DECREASED GLUCOSE; Start 05/09/19 at 17:00 Dextrose (D50w Syringe) 25 ml Q15M PRN IV DECREASED GLUCOSE; Start 05/09/19 at 17:00 Dextrose (D50w Syringe) 50 ml Q15M PRN IV DECREASED GLUCOSE; Start 05/09/19 at 17:00 Glucagon (Glucagen) 1 mg Q15M PRN IM DECREASED GLUCOSE; Start 05/09/19 at 17:00 Glucose (Glutose) 15 gm Q15M PRN BUCCAL DECREASED GLUCOSE; Start 05/09/19 at 17:00 Propofol 100 ml @ 3.75 mls/hr Q12H IV Last administered on 05/11/19 08:44; Admin Dose 15 MLS/HR; Start 05/09/19 at 17:00; Status Hold Famotidine (Pepcid Iv) 20 mg Q12 IV Last administered on 05/12/19 09:02; Admin Dose 20 MG; Start 05/11/19 at 09:00 Hydralazine HCl (Apresoline) 100 mg Q8 PO Last administered on 05/12/19 13:01; Admin Dose 100 MG; Start 05/10/19 at 14:00 Atorvastatin Calcium (Lipitor) 80 mg HS NGT Last administered on 05/11/19 21:09; Admin Dose 80 MG; Start 05/11/19 at 21:00 Metoprolol Tartrate (Lopressor) 50 mg BID NGT Last administered on 05/12/19 09:02; Admin Dose 50 MG; Start 05/11/19 at 11:00 Nicardipine HCl 25 mg/Sodium Chloride 250 ml @ 0 mls/hr TITRATE IV* Last administered on 05/12/19 11:01; Admin Dose 50 MLS/HR; Start 05/11/19 at 11:00 Insulin Glargine (Lantus) 10 units DAILY@2000 SC Last administered on 05/11/19 20:06; Admin Dose 10 UNITS; Start 05/11/19 at 20:00 DAVID QUIÑONEZ MD May 12, 2019 15:00
[2019-05-12] MEDS: INSULIN GLARGINE [LANTus] (100 UNITS/ML) SYG SC SCH (20:58)
[2019-05-12] MEDS: ATORVASTATIN 80 MG TAB NGT SCH (21:01)
[2019-05-13] VITALS (106 sets, daily range): BP systolic 111–201; BP diastolic 67–126; PULSE 62–117; RESP 17–32
[2019-05-13] MEDS: INSULIN ASPART [NOVOLOG] 3 ML PEN SC SCH ×6 (00:06→21:00)
[2019-05-13] MEDS: niCARdipine 25 MG in SOD CHLORIDE 0.9% 240 ML IV* SCH ×6 (00:48→11:05)
[2019-05-13] MEDS: hydrALAzine 20 MG INJ IV PRN ×2 (03:38→11:27)
--- NOTE | 2019-05-13 08:22 | PN ---
DATE: 05/13/2019 SUBJECTIVE: The patient remains in critical condition on full ventilatory support. The patient's bl ood pressure remains elevated on Cardene drip. No other events noted. OBJECTIVE: VITAL SIGNS: Blood pressure is 147/76, respirations 21, pulse 78, temperature 98.6. HEENT: Head is normocephalic. NECK: Supple. HEART: Regular rate. LUNGS: Show diminished breath sounds at the base. ABDOMEN: Soft, nontender to palpation without rebound or guarding. EXTREMITIES: Negative for clubbing, cyanosis, no edema. DERMATOLOGIC: No rashes. MUSCULOSKELETAL: No joint effusion. NEUROLOGIC: No change in exam. MEDICATIONS: The patient's medications have been reviewed. LABORATORY DATA: Has been reviewed. IMAGING STUDIES: Have been reviewed. ASSESSMENT AND PLAN: 1. Nonoliguric acute kidney injury with previous baseline creatinine 0.72 mg/dL. Etiology of GARDENIA is multifactorial secondary to vancomycin nephrotoxicity, possible contrast-associated nephropathy, hem odynamics. The patient's renal function has improved. Plan is to discontinue IV fluids. The patien t will be reintroduced on BETO inhibitor. Will monitor renal function, electrolytes closely. 2. Hypokalemia. Continue to monitor and replete. 3. Mineral bone disorder, monitor calcium and phosphorus levels. 4. Acute encephalopathy, etiology secondary to acute cerebrovascular accident. The patient's MRI sh ows multiple infarcts. Etiology is unclear, possible cardioembolic. Continue to monitor. Patient w ith noted hemorrhagic conversion in the left frontal region. Follow up with neurology and neurosurge ry. 5. Hypertensive urgency. Continue current blood pressure regimen. Wean off Cardene drip. Will sta rt patient on BETO inhibitor, monitor. 6. Ventilator-dependent respiratory failure. Vent settings and ABG was reviewed. 7. Cerebrovascular accident with frontal hematoma. Continue medical management as stated above. 8. Tachyarrhythmia. Continue to monitor. 9. SIRS. Continue to monitor. Dictated By: AMELIA NUÑEZ/ALISHA Conf#: [id number] DID#: [id number]
[2019-05-13] MEDS ORDERED: LISINOPRIL 20 MG TAB GTB SCH (09:00)
--- NOTE | 2019-05-13 09:14 | PN ---
Date/Time of Note Date/Time of Note DATE: 05/13/19 TIME: 09:08 Assessment/Plan VTE Prophylaxis Risk score (from Ns)>0 risk: 8 SCD applied (from Ns): Yes Pharmacological prophylaxis: NA/contraindicated Pharm contraindication: bleeding Lines/Catheters IV Catheter Type (from Nrsg): Peripheral IV Urinary Cath still in place: Yes Reason Cath still needed: other (indicate) (intubated) Assessment/Plan Assessment/Plan 39-year-old morbidly obese woman with history of HTN who comes in with decreased p.o. intake, lethargy preceded by delerium and nausea and vomiting. 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 #Encephalopathy - MRI brain shows several new and old infarcts. There is a small frontal bleed which may be hemorrhagic infarct. - No concern for infectious meningitis based on LP, stop antibiotics. - Decadron also ordered on admission. - Discontinue droplet isolation - HIV negative - Dr. Laurent following. - Limit sedation as much as possible. #GARDENIA - Likely due to iatrogenic vancomycin toxicity - Dr. Haas following. - Now resolved. #Respiratory failure - Intubated due to poor mental status - When patient is awake and following commands, extubation per pulmonary. - On tube feeds. # Hypertension - Continue home dose hydralazine (maxed out) - Cont metoprolol - Also restarted home lisinopril now that GARDENIA has resolved. - Also nicardipene gtt. # DVT prophylaxis: SCDs Result Diagram: 05/13/19 0500 05/13/19 0500 Subjective 24 Hr Interval Summary Free Text/Dictation No acute overnight events. Exam/Review of Systems Exam Vitals Vital Signs Date Temp Pulse Resp B/P (MAP) Pulse Ox O2 O2 Flow FiO2 Time Delivery Rate 05/13/19 85 21 100 30 07:45 05/13/19 147/76 Mechanical 06:00 (99) Ventilator 05/13/19 98.6 04:00 05/09/19 4.0 11:46 Intake and Output 05/12/19 05/12/19 05/13/19 1515:00 23:00 07:00 IntakeIntake Total 710.00 ml 702.50 ml 980 ml OutputOutput Total 630 ml 699 ml 330 ml BalanceBalance 80.00 ml 3.50 ml 650 ml Exam Gen: Morbidly obese woman lying supine in bed, intubated Eyes: Slightly injected conjunctivae. Normal pupils ENT: Normal External Ears, Nose and Mouth. Moist mucous membranes. ET tube in place. Neck: Full range of motion. No meningismus. No lymphadenopathy. Resp: Mechanical breath sounds bilaterally. Cardio: Regular rate and rhythm, no murmurs appreciated. Abd: Soft, obese, nondistended, normal bowel sounds Ext: No lower extremity edema bilaterally Neuro: Eyes open spontaneously, not tracking. Moving L arm spontaneously, moves all other extremities to pain. Not following commands. Results Results 24hrs Laboratory Tests Test 05/12/19 09:24 05/12/19 12:23 05/12/19 12:51 05/12/19 17:14 Bedside Glucose 145 135 138 Lab Scanned Report REFERENCE LAB Test 05/12/19 20:55 05/13/19 00:02 05/13/19 04:20 05/13/19 05:00 Bedside Glucose 176 168 146 White Blood Count 6.9 Red Blood Count 4.52 Hemoglobin 13.0 Hematocrit 41.4 Mean Corpuscular 91.6 Volume Mean Corpuscular 28.8 L Hemoglobin Mean Corpuscular 31.4 L Hemoglobin Concent Red Cell 14.3 Distribution Width Platelet Count 128 L Mean Platelet 12.4 H Volume Immature 0.600 H Granulocytes % Neutrophils % 74.3 Lymphocytes % 14.4 L Monocytes % 8.1 Eosinophils % 2.3 Basophils % 0.3 Nucleated Red 0.0 Blood Cells % Immature 0.040 H Granulocytes # Neutrophils # 5.1 Lymphocytes # 1.0 Monocytes # 0.6 Eosinophils # 0.2 Basophils # 0.0 Nucleated Red 0.0 Blood Cells # Sodium Level 141 Potassium Level 4.4 Chloride Level 114 H Carbon Dioxide 19 L Level Anion Gap 8 Blood Urea 20 Nitrogen Creatinine 0.88 Est Glomerular > 60 Filtrat Rate mL/min Glucose Level 165 Calcium Level 8.1 L Medications Medication Current Medications IV Flush (NS 3 ml) 3 ml PER PROTOCOL IV ; Start 05/09/19 at 00:00 Ondansetron HCl (Zofran Inj) 4 mg Q6H PRN IV NAUSEA/VOMITING; Start 05/09/19 at 00:00 Acetaminophen (Tylenol Tab) 650 mg Q6H PRN PO .PAIN 1-3 OR TEMP; Start 05/09/19 at 00:00 Acetaminophen/ Hydrocodone Bitart ([place] (5/325)) 1 tab Q6H PRN PO .MOD PAIN 4- 6; Start 05/09/19 at 00:00 Morphine Sulfate (morphine) 2 mg Q4H PRN IV .SEVERE PAIN 7-10; Start 05/09/19 at 00:00 Docusate Sodium (Colace) 100 mg Q12H PRN PO .CONSTIPATION; Start 05/09/19 at 00:00 Magnesium Hydroxide (Milk Of Mag) 30 ml DAILY PRN PO .CONSTIPATION; Start 05/09/19 at 00:00 Hydralazine HCl (Apresoline) 10 mg Q6H PRN IV ELEVATED BLOOD PRESSURE Last ad ministered on 05/13/19at 03:38; Admin Dose 10 MG; Start 05/09/19 at 00:00 Nitroglycerin (Nitroglycerin (Sl Tab) 0.4 Mg) 1 tab Q5M PRN SL ANGINA; Start 05/09/19 at 00:00 Labetalol HCl (Labetalol) 10 mg Q6H PRN IV sys bp > 160 Last administered on 05/12/19at 19:03; Admin Dose 10 MG; Start 05/09/19 at 05:00 Insulin Aspart (Novolog Insulin Pen) NOVOLOG *MODERATE* ALGORI... Q4 SC Last administered on 05/13/19at 04:23; Admin Dose 2 UNIT; Start 05/09/19 at 18:00 Miscellaneous Information 1 ea NOTE XX ; Start 05/09/19 at 17:00 Glucose (Glutose) 15 gm Q15M PRN PO DECREASED GLUCOSE; Start 05/09/19 at 17:00 Glucose (Glutose) 22.5 gm Q15M PRN PO DECREASED GLUCOSE; Start 05/09/19 at 17:00 Dextrose (D50w Syringe) 25 ml Q15M PRN IV DECREASED GLUCOSE; Start 05/09/19 at 17:00 Dextrose (D50w Syringe) 50 ml Q15M PRN IV DECREASED GLUCOSE; Start 05/09/19 at 17:00 Glucagon (Glucagen) 1 mg Q15M PRN IM DECREASED GLUCOSE; Start 05/09/19 at 17:00 Glucose (Glutose) 15 gm Q15M PRN BUCCAL DECREASED GLUCOSE; Start 05/09/19 at 17:00 Propofol 100 ml @ 3.75 mls/hr Q12H IV Last administered on 05/11/19at 08:44; Admin Dose 15 MLS/HR; Start 05/09/19 at 17:00; Status Hold Famotidine (Pepcid Iv) 20 mg Q12 IV Last administered on 05/12/19at 21:00; Admin Dose 20 MG; Start 05/11/19 at 09:00 Hydralazine HCl (Apresoline) 100 mg Q8 PO Last administered on 05/13/19at 05:09; Admin Dose 100 MG; Start 05/10/19 at 14:00 Atorvastatin Calcium (Lipitor) 80 mg HS NGT Last administered on 05/12/19at 21:01; Admin Dose 80 MG; Start 05/11/19 at 21:00 Nicardipine HCl 25 mg/Sodium Chloride 250 ml @ 0 mls/hr TITRATE IV* Last administered on 05/13/19at 06:47; Admin Dose 125 MLS/HR; Start 05/11/19 at 11:00 Insulin Glargine (Lantus) 10 units DAILY@2000 SC Last administered on 05/12/19at 20:58; Admin Dose 10 UNITS; Start 05/11/19 at 20:00 Lisinopril (Zestril) 20 mg DAILY GTB ; Start 05/13/19 at 09:00 Metoprolol Tartrate (Lopressor) 100 mg BID NGT ; Start 05/13/19 at 09:00 DAVID QUIÑONEZ MD May 13, 2019 09:14
[2019-05-13] MEDS: FAMOTIDINE 20 MG INJ IV SCH (09:18)
[2019-05-13] MEDS: METOPROLOL 50 MG TAB NGT SCH ×2 (09:18→21:02)
--- NOTE | 2019-05-13 09:46 | CONS ---
Assessment/Plan Assessment/Plan Assessment/Plan (Daily) Ventilator setting; assist control of 16, tidal volume 500, PEEP of 5, 30% FiO2. Patient is currently on nicardipine drip at 12.5 mg/h. Assessment and recommendations; 1. Patient admitted with intracranial hemorrhage likely hypertensive in etiology. Patient currently on adequate enteral antihypertensive regimen and having significant persistent hypertension requiring nicardipine drip. 2. Status post lumbar puncture with negative CSF studies. Patient off antibiotics. 3. History of diabetes. 4. Acute thrombocytopenia with interval improvement. Continue current supportive care. Prognosis guarded and depends entirely upon adequate mental status recovery. 35 minutes of critical care time was spent evaluating the patient. Consultation Date/Type/Reason Admit Date/Time May 08, 2019 at 23:21 Initial Consult Date 05/10/19 Type of Consult Pulmonary/critical care Patient is a 39-year-old lady who came into the hospital with complaints of nausea vomiting going on for the last 2 days with headache. Upon evaluation patient was extremely hypertensive then developed respiratory failure requiring intubation. Emergent CT imaging of the head was done which is showing intracranial hemorrhage. Patient has remained completely unresponsive. Was started on propofol drip for tachypnea. Past medical history; 1. Hypertension. Medications; reviewed. Allergies; none. Social history, family history, occupational history not available. Review of system; unable to be obtained. General exam; young female, orally intubated, sedated, currently in no distress. Requesting Provider: DAMIEN CHOUDHARY Date/Time of Note DATE: 05/13/19 TIME: 09:44 24 HR Interval Summary Free Text/Dictation Patient's condition is critical. Remains awake but noncommunicative. Has remained hypertensive. On nicardipine drip. General exam; young female, orally intubated, awake, noncommunicative. Currently in no distress. Exam/Review of Systems Exam Vitals Vital Signs Date Temp Pulse Resp B/P (MAP) Pulse Ox O2 O2 Flow FiO2 Time Delivery Rate 05/13/19 94 24 100 30 09:24 05/13/19 147/76 Mechanical 06:00 (99) Ventilator 05/13/19 98.6 04:00 05/09/19 4.0 11:46 Intake and Output 05/12/19 05/12/19 05/13/19 1515:00 23:00 07:00 IntakeIntake Total 710.00 ml 702.50 ml 980 ml OutputOutput Total 630 ml 699 ml 330 ml BalanceBalance 80.00 ml 3.50 ml 650 ml Exam H EENT exam; supple neck, no JVD. No lymphadenopathy. Midline trachea. No thyromegaly. Patient has good dentition. Orally intubated. Pupils are small bilaterally. There is bilateral subconjunctival edema. Chest exam; clear to auscultation. S1-S2 audible, no murmurs. Regular rhythm. Abdomen exam; soft, no organomegaly. Bowel sounds audible. Extremity exam; no peripheral edema. 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 Results Result Diagram: 05/13/19 0500 05/13/19 0500 Results 24hrs Laboratory Tests Test 05/12/19 12:23 05/12/19 12:51 05/12/19 17:14 05/12/19 20:55 Lab Scanned Report REFERENCE LAB Bedside Glucose 135 138 176 Test 05/13/19 00:02 05/13/19 04:20 05/13/19 05:00 05/13/19 09:17 Bedside Glucose 168 146 169 White Blood Count 6.9 Red Blood Count 4.52 Hemoglobin 13.0 Hematocrit 41.4 Mean Corpuscular 91.6 Volume Mean Corpuscular 28.8 L Hemoglobin Mean Corpuscular 31.4 L Hemoglobin Concent Red Cell 14.3 Distribution Width Platelet Count 128 L Mean Platelet 12.4 H Volume Immature 0.600 H Granulocytes % Neutrophils % 74.3 Lymphocytes % 14.4 L Monocytes % 8.1 Eosinophils % 2.3 Basophils % 0.3 Nucleated Red 0.0 Blood Cells % Immature 0.040 H Granulocytes # Neutrophils # 5.1 Lymphocytes # 1.0 Monocytes # 0.6 Eosinophils # 0.2 Basophils # 0.0 Nucleated Red 0.0 Blood Cells # Sodium Level 141 Potassium Level 4.4 Chloride Level 114 H Carbon Dioxide 19 L Level Anion Gap 8 Blood Urea 20 Nitrogen Creatinine 0.88 Est Glomerular > 60 Filtrat Rate mL/min Glucose Level 165 Calcium Level 8.1 L Medications Medication Current Medications IV Flush (NS 3 ml) 3 ml PER PROTOCOL IV ; Start 05/09/19 at 00:00 Ondansetron HCl (Zofran Inj) 4 mg Q6H PRN IV NAUSEA/VOMITING; Start 05/09/19 at 00:00 Acetaminophen (Tylenol Tab) 650 mg Q6H PRN PO .PAIN 1-3 OR TEMP; Start 05/09/19 at 00:00 Acetaminophen/ Hydrocodone Bitart ([place] (5/325)) 1 tab Q6H PRN PO .MOD PAIN 4- 6; Start 05/09/19 at 00:00 Morphine Sulfate (morphine) 2 mg Q4H PRN IV .SEVERE PAIN 7-10; Start 05/09/19 at 00:00 Docusate Sodium (Colace) 100 mg Q12H PRN PO .CONSTIPATION; Start 05/09/19 at 00:00 Magnesium Hydroxide (Milk Of Mag) 30 ml DAILY PRN PO .CONSTIPATION; Start 05/09/19 at 00:00 Hydralazine HCl (Apresoline) 10 mg Q6H PRN IV ELEVATED BLOOD PRESSURE Last administered on 05/13/19at 03:38; Admin Dose 10 MG; Start 05/09/19 at 00:00 Nitroglycerin (Nitroglycerin (Sl Tab) 0.4 Mg) 1 tab Q5M PRN SL ANGINA; Start 05/09/19 at 00:00 Labetalol HCl (Labetalol) 10 mg Q6H PRN IV sys bp > 160 Last administered on 05/12/19at 19:03; Admin Dose 10 MG; Start 05/09/19 at 05:00 Insulin Aspart (Novolog Insulin Pen) NOVOLOG *MODERATE* ALGORI... Q4 SC Last administered on 05/13/19at 09:31; Admin Dose 2 UNIT; Start 05/09/19 at 18:00 Miscellaneous Information 1 ea NOTE XX ; Start 05/09/19 at 17:00 Glucose (Glutose) 15 gm Q15M PRN PO DECREASED GLUCOSE; Start 05/09/19 at 17:00 Glucose (Glutose) 22.5 gm Q15M PRN PO DECREASED GLUCOSE; Start 05/09/19 at 17:00 Dextrose (D50w Syringe) 25 ml Q15M PRN IV DECREASED GLUCOSE; Start 05/09/19 at 17:00 Dextrose (D50w Syringe) 50 ml Q15M PRN IV DECREASED GLUCOSE; Start 05/09/19 at 17:00 Glucagon (Glucagen) 1 mg Q15M PRN IM DECREASED GLUCOSE; Start 05/09/19 at 17:00 Glucose (Glutose) 15 gm Q15M PRN BUCCAL DECREASED GLUCOSE; Start 05/09/19 at 17:00 Propofol 100 ml @ 3.75 mls/hr Q12H IV Last administered on 05/11/19 08:44; Admin Dose 15 MLS/HR; Start 05/09/19 at 17:00; Status Hold Famotidine (Pepcid Iv) 20 mg Q12 IV Last administered on 05/13/19 09:18; Admin Dose 20 MG; Start 05/11/19 at 09:00 Hydralazine HCl (Apresoline) 100 mg Q8 PO Last administered on 05/13/19 05:09; Admin Dose 100 MG; Start 05/10/19 at 14:00 Atorvastatin Calcium (Lipitor) 80 mg HS NGT Last administered on 05/12/19 21:01; Admin Dose 80 MG; Start 05/11/19 at 21:00 Nicardipine HCl 25 mg/Sodium Chloride 250 ml @ 0 mls/hr TITRATE IV* Last administered on 05/13/19 09:09; Admin Dose 100 MLS/HR; Start 05/11/19 at 11:00 Insulin Glargine (Lantus) 10 units DAILY@2000 SC Last administered on 05/12/19 20:58; Admin Dose 10 UNITS; Start 05/11/19 at 20:00 Lisinopril (Zestril) 20 mg DAILY GTB Last administered on 05/13/19 09:19; Admin Dose 20 MG; Start 05/13/19 at 09:00 Metoprolol Tartrate (Lopressor) 100 mg BID NGT Last administered on 05/13/19 09:18; Admin Dose 100 MG; Start 05/13/19 at 09:00 JAYSON WASSERMAN 14, 2019 09:46
[2019-05-13] MEDS ORDERED: LIDOCAINE 1% (MPF) 5 ML VIAL SC ONE (10:30)
[2019-05-13] MEDS: morphine 2 MG INJ IV PRN ×2 (11:04→15:41)
[2019-05-13] MEDS ORDERED: LORAZEPAM 2 MG INJ IV PRN (12:00)
--- NOTE | 2019-05-13 13:29 | CONS ---
Assessment/Plan Assessment/Plan Hospital Course (Demo Recall) Patient was more responsive today received morphine for being restless currently no distress afebrile. WBC 6.9 no shift no bands BUN 20 creatinine 0.88 Indwelling: Endotracheal tube orogastric tube Bojorquez catheter PICC Physical examination: Morbidly obese well-developed middle-aged woman who is intubated sedated in no distress. Head atraumatic normocephalic sclera nonicteric unable to assess pupils as her pupils facing down. Bugle mucosa dry. Neck is supple chest rise symmetrical breath sounds diminished bases. Heart: S1-S2. Abdomen obese soft bowel tones present. Extremities without cyanosis. Assessment: 1. Acute encephalopathy 2 to acute infarcts 2. Acute respiratory failure, rule out aspiration 3. Morbid obesity 4. Acute kidney insufficiency 5. Hypertension Plan: Patient remains hemodynamically stable, off abx, f/u neurology rec-s Consultation Date/Type/Reason Admit Date/Time May 08, 2019 at 23:21 Initial Consult Date 05/10/19 Type of Consult id Requesting Provider: DAMIEN CHOUDHARY Date/Time of Note DATE: 05/13/19 TIME: 13:27 Exam/Review of Systems Exam Vitals Vital Signs Date Temp Pulse Resp B/P (MAP) Pulse Ox O2 O2 Flow FiO2 Time Delivery Rate 05/13/19 92 21 100 30 13:01 05/13/19 201/126 11:15 (151) 05/13/19 Mechanical 11:00 Ventilator 05/13/19 99.8 08:00 05/09/19 4.0 11:46 Intake and Output 05/12/19 05/12/19 05/13/19 1515:00 23:00 07:00 IntakeIntake Total 710.00 ml 702.50 ml 980 ml OutputOutput Total 630 ml 699 ml 330 ml BalanceBalance 80.00 ml 3.50 ml 650 ml Results Result Diagram: 05/13/19 0500 05/13/19 0500 Results 24hrs Laboratory Tests Test 05/12/19 17:14 05/12/19 20:55 05/13/19 00:02 05/13/19 04:20 Bedside Glucose 138 176 168 146 Test 05/13/19 05:00 05/13/19 09:17 White Blood Count 6.9 Red Blood Count 4.52 Hemoglobin 13.0 Hematocrit 41.4 Mean Corpuscular 91.6 Volume Mean Corpuscular 28.8 L Hemoglobin Mean Corpuscular 31.4 L Hemoglobin Concent Red Cell 14.3 Distribution Width Platelet Count 128 L Mean Platelet Volume 12.4 H Immature 0.600 H Granulocytes % Neutrophils % 74.3 Lymphocytes % 14.4 L Monocytes % 8.1 Eosinophils % 2.3 Basophils % 0.3 Nucleated Red Blood 0.0 Cells % Immature 0.040 H Granulocytes # Neutrophils # 5.1 Lymphocytes # 1.0 Monocytes # 0.6 Eosinophils # 0.2 Basophils # 0.0 Nucleated Red Blood 0.0 Cells # Sodium Level 141 Potassium Level 4.4 Chloride Level 114 H Carbon Dioxide Level 19 L Anion Gap 8 Blood Urea Nitrogen 20 Creatinine 0.88 Est Glomerular > 60 Filtrat Rate mL/min Glucose Level 165 Calcium Level 8.1 L Bedside Glucose 169 Medications Medication Current Medications IV Flush (NS 3 ml) 3 ml PER PROTOCOL IV ; Start 05/09/19 at 00:00 Ondansetron HCl (Zofran Inj) 4 mg Q6H PRN IV NAUSEA/VOMITING; Start 05/09/19 at 00:00 Acetaminophen (Tylenol Tab) 650 mg Q6H PRN PO .PAIN 1-3 OR TEMP; Start 05/09/19 at 00:00 Acetaminophen/ Hydrocodone Bitart ([place] (5/325)) 1 tab Q6H PRN PO .MOD PAIN 4- 6; Start 05/09/19 at 00:00 Morphine Sulfate (morphine) 2 mg Q4H PRN IV .SEVERE PAIN 7-10 Last administered on 05/13/19at 11:04; Admin Dose 2 MG; Start 05/09/19 at 00:00 Docusate Sodium (Colace) 100 mg Q12H PRN PO .CONSTIPATION; Start 05/09/19 at 00:00 Magnesium Hydroxide (Milk Of Mag) 30 ml DAILY PRN PO .CONSTIPATION; Start 05/09/19 at 00:00 Hydralazine HCl (Apresoline) 10 mg Q6H PRN IV ELEVATED BLOOD PRESSURE Last administered on 05/13/19at 11:27; Admin Dose 10 MG; Start 05/09/19 at 00:00 Nitroglycerin (Nitroglycerin (Sl Tab) 0.4 Mg) 1 tab Q5M PRN SL ANGINA; Start 05/09/19 at 00:00 Labetalol HCl (Labetalol) 10 mg Q6H PRN IV sys bp > 160 Last administered on 05/12/19at 19:03; Admin Dose 10 MG; Start 05/09/19 at 05:00 Insulin Aspart (Novolog Insulin Pen) NOVOLOG *MODERATE* ALGORI... Q4 SC Last administered on 05/13/19at 09:31; Admin Dose 2 UNIT; Start 05/09/19 at 18:00 Miscellaneous Information 1 ea NOTE XX ; Start 05/09/19 at 17:00 Glucose (Glutose) 15 gm Q15M PRN PO DECREASED GLUCOSE; Start 05/09/19 at 17:00 Glucose (Glutose) 22.5 gm Q15M PRN PO DECREASED GLUCOSE; Start 05/09/19 at 17:00 Dextrose (D50w Syringe) 25 ml Q15M PRN IV DECREASED GLUCOSE; Start 05/09/19 at 17:00 Dextrose (D50w Syringe) 50 ml Q15M PRN IV DECREASED GLUCOSE; Start 05/09/19 at 17:00 Glucagon (Glucagen) 1 mg Q15M PRN IM DECREASED GLUCOSE; Start 05/09/19 at 17:00 Glucose (Glutose) 15 gm Q15M PRN BUCCAL DECREASED GLUCOSE; Start 05/09/19 at 17:00 Propofol 100 ml @ 3.75 mls/hr Q12H IV Last administered on 05/11/19at 08:44; Admin Dose 15 MLS/HR; Start 05/09/19 at 17:00; Status Hold Hydralazine HCl (Apresoline) 100 mg Q8 PO Last administered on 05/13/19at 05:09; Admin Dose 100 MG; Start 05/10/19 at 14:00 Atorvastatin Calcium (Lipitor) 80 mg HS NGT Last administered on 05/12/19at 21:01; Admin Dose 80 MG; Start 05/11/19 at 21:00 Nicardipine HCl 25 mg/Sodium Chloride 250 ml @ 0 mls/hr TITRATE IV* Last administered on 05/13/19at 11:05; Admin Dose 140 MLS/HR; Start 05/11/19 at 11:00; Stop 05/13/19 at 14:00 Insulin Glargine (Lantus) 10 units DAILY@2000 SC Last administered on 05/12/19at 20:58; Admin Dose 10 UNITS; Start 05/11/19 at 20:00 Lisinopril (Zestril) 20 mg DAILY GTB Last administered on 05/13/19at 09:19; Admin Dose 20 MG; Start 05/13/19 at 09:00 Metoprolol Tartrate (Lopressor) 100 mg BID NGT Last administered on 05/13/19at 09:18; Admin Dose 100 MG; Start 05/13/19 at 09:00 Nicardipine HCl 50 mg/Sodium Chloride 500 ml @ 0 mls/hr TITRATE IV ; Start 05/13/19 at 12:00 Lorazepam (Ativan) 2 mg Q6H PRN IV agitation; Start 05/13/19 at 12:00 Famotidine (Pepcid) 20 mg Q12 PO ; Start 05/13/19 at 21:00 ROHIT CHAWLA NP May 13, 2019 13:28
[2019-05-13] MEDS: niCARdipine 50 MG in SOD CHLORIDE 0.9% 480 ML IV SCH ×3 (15:37→23:02)
--- NOTE | 2019-05-13 15:46 | CONS ---
Assessment/Plan Assessment/Plan Assessment/Plan (Recall) 39 F c/ reported Hx of DM2, who presents for evaluation of multiple complaints, including GI Sx...and eventual ams, for which neurology is consulted. 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 The clinical picture was initially concerning for meningoencephalitis..CSF evaluation is inconsistent w/ infection...the erythrocytosis possibly due to a traumatic tap.. Head CT was notable for a left frontal hyperdensity, likely hemorrhagic t ransformation of an above referenced focus of acute ischemia is the context of severe hypertension.. CTA head and neck is negative for multifocal stenoses, which might otherwise suggests vasculitis, etc. EEG was without epileptiform activity Echo is unrevealing Ammonia wnl, HIV/RPR neg, ESR wnl Hypercoagulability panel is in progress P: Continue to hold all sedating medications where possible Continued BP control to goal SBP 120-160 Hold antiplatelets/anticoagulants til 05/15, then start baby asa daily thereafter.. Other management and supportive care per primary Will follow clinically Consultation Date/Type/Reason Admit Date/Time May 08, 2019 at 23:21 Type of Consult Neurology Reason for Consultation ams Requesting Provider: DMAIEN CHOUDHARY Date/Time of Note DATE: 05/13/19 TIME: 15:46 24 HR Interval Summary Free Text/Dictation Continues acute care Exam/Review of Systems Exam Vitals Vital Signs Date Temp Pulse Resp B/P (MAP) Pulse Ox O2 O2 Flow FiO2 Time Delivery Rate 05/13/19 72 24 100 30 14:43 05/13/19 142/79 13:45 (100) 05/13/19 100.1 [place] 13:00 l Ventilato r 05/09/19 4.0 11:46 Intake and Output 05/12/19 05/12/19 05/13/19 1515:00 23:00 07:00 IntakeIntake Total 710.00 ml 702.50 ml 980 ml OutputOutput Total 630 ml 699 ml 330 ml BalanceBalance 80.00 ml 3.50 ml 650 ml Results Result Diagram: 05/13/19 0500 05/13/19 0500 Results 24hrs Laboratory Tests Test 05/12/19 17:14 05/12/19 20:55 05/13/19 00:02 05/13/19 04:20 Bedside Glucose 138 176 168 146 Test 05/13/19 05:00 05/13/19 09:17 05/13/19 13:41 White Blood Count 6.9 Red Blood Count 4.52 Hemoglobin 13.0 Hematocrit 41.4 Mean Corpuscular 91.6 Volume Mean Corpuscular 28.8 L Hemoglobin Mean Corpuscular 31.4 L Hemoglobin Concent Red Cell 14.3 Distribution Width Platelet Count 128 L Mean Platelet Volume 12.4 H Immature 0.600 H Granulocytes % Neutrophils % 74.3 Lymphocytes % 14.4 L Monocytes % 8.1 Eosinophils % 2.3 Basophils % 0.3 Nucleated Red Blood 0.0 Cells % Immature 0.040 H Granulocytes # Neutrophils # 5.1 Lymphocytes # 1.0 Monocytes # 0.6 Eosinophils # 0.2 Basophils # 0.0 Nucleated Red Blood 0.0 Cells # Sodium Level 141 Potassium Level 4.4 Chloride Level 114 H Carbon Dioxide Level 19 L Anion Gap 8 Blood Urea Nitrogen 20 Creatinine 0.88 Est Glomerular > 60 Filtrat Rate mL/min Glucose Level 165 Calcium Level 8.1 L Bedside Glucose 169 173 Medications Medication Current Medications IV Flush (NS 3 ml) 3 ml PER PROTOCOL IV ; Start 05/09/19 at 00:00 Ondansetron HCl (Zofran Inj) 4 mg Q6H PRN IV NAUSEA/VOMITING; Start 05/09/19 at 00:00 Acetaminophen (Tylenol Tab) 650 mg Q6H PRN PO .PAIN 1-3 OR TEMP; Start 05/09/19 at 00:00 Acetaminophen/ Hydrocodone Bitart ([place] (5/325)) 1 tab Q6H PRN PO .MOD PAIN 4- 6; Start 05/09/19 at 00:00 Morphine Sulfate (morphine) 2 mg Q4H PRN IV .SEVERE PAIN 7-10 Last administered on 05/13/19at 15:41; Admin Dose 2 MG; Start 05/09/19 at 00:00 Docusate Sodium (Colace) 100 mg Q12H PRN PO .CONSTIPATION; Start 05/09/19 at 00:00 Magnesium Hydroxide (Milk Of Mag) 30 ml DAILY PRN PO .CONSTIPATION; Start 05/09/19 at 00:00 Hydralazine HCl (Apresoline) 10 mg Q6H PRN IV ELEVATED BLOOD PRESSURE Last administered on 05/13/19at 11:27; Admin Dose 10 MG; Start 05/09/19 at 00:00 Nitroglycerin (Nitroglycerin (Sl Tab) 0.4 Mg) 1 tab Q5M PRN SL ANGINA; Start 05/09/19 at 00:00 Labetalol HCl (Labetalol) 10 mg Q6H PRN IV sys bp > 160 Last administered on 05/12/19at 19:03; Admin Dose 10 MG; Start 05/09/19 at 05:00 Insulin Aspart (Novolog Insulin Pen) NOVOLOG *MODERATE* ALGORI... Q4 SC Last administered on 05/13/19at 13:46; Admin Dose 2 UNIT; Start 05/09/19 at 18:00 Miscellaneous Information 1 ea NOTE XX ; Start 05/09/19 at 17:00 Glucose (Glutose) 15 gm Q15M PRN PO DECREASED GLUCOSE; Start 05/09/19 at 17:00 Glucose (Glutose) 22.5 gm Q15M PRN PO DECREASED GLUCOSE; Start 05/09/19 at 17:00 Dextrose (D50w Syringe) 25 ml Q15M PRN IV DECREASED GLUCOSE; Start 05/09/19 at 17:00 Dextrose (D50w Syringe) 50 ml Q15M PRN IV DECREASED GLUCOSE; Start 05/09/19 at 17:00 Glucagon (Glucagen) 1 mg Q15M PRN IM DECREASED GLUCOSE; Start 05/09/19 at 17:00 Glucose (Glutose) 15 gm Q15M PRN BUCCAL DECREASED GLUCOSE; Start 05/09/19 at 17:00 Propofol 100 ml @ 3.75 mls/hr Q12H IV Last administered on 05/11/19at 08:44; Admin Dose 15 MLS/HR; Start 05/09/19 at 17:00; Status Hold Hydralazine HCl (Apresoline) 100 mg Q8 PO Last administered on 05/13/19at 14:03; Admin Dose 100 MG; Start 05/10/19 at 14:00 Atorvastatin Calcium (Lipitor) 80 mg HS NGT Last administered on 05/12/19at 21:01; Admin Dose 80 MG; Start 05/11/19 at 21:00 Insulin Glargine (Lantus) 10 units DAILY@2000 SC Last administered on 05/12/19at 20:58; Admin Dose 10 UNITS; Start 05/11/19 at 20:00 Lisinopril (Zestril) 20 mg DAILY GTB Last administered on 05/13/19at 09:19; Admin Dose 20 MG; Start 05/13/19 at 09:00 Metoprolol Tartrate (Lopressor) 100 mg BID NGT Last administered on 05/13/19at 09:18; Admin Dose 100 MG; Start 05/13/19 at 09:00 Nicardipine HCl 50 mg/Sodium Chloride 500 ml @ 0 mls/hr TITRATE IV Last administered on 05/13/19at 15:37; Admin Dose 140 MLS/HR; Start 05/13/19 at 12:00 Lorazepam (Ativan) 2 mg Q6H PRN IV agitation; Start 05/13/19 at 12:00 Famotidine (Pepcid) 20 mg Q12 PO ; Start 05/13/19 at 21:00 IV Flush (NS 10 ml) 10 ml PRN PRN IV IV PROTOCOL; Start 05/13/19 at 14:00 JOSÉ TORO 14, 2019 15:46
[2019-05-13] MEDS: INSULIN GLARGINE [LANTus] (100 UNITS/ML) SYG SC SCH (20:56)
[2019-05-13] MEDS: ATORVASTATIN 80 MG TAB NGT SCH (21:01)
[2019-05-13] MEDS: FAMOTIDINE 20 MG TAB PO SCH (21:02)
[2019-05-14] VITALS (105 sets, daily range): BP systolic 123–189; BP diastolic 67–93; PULSE 58–88; RESP 16–24
[2019-05-14] MEDS: INSULIN ASPART [NOVOLOG] 3 ML PEN SC SCH ×6 (00:04→20:53)
[2019-05-14] MEDS: niCARdipine 50 MG in SOD CHLORIDE 0.9% 480 ML IV SCH ×6 (02:03→21:12)
[2019-05-14] MEDS ORDERED: LISINOPRIL 20 MG TAB GTB SCH (09:00)
--- NOTE | 2019-05-14 09:06 | CONS ---
Assessment/Plan Assessment/Plan Assessment/Plan (Recall) 39 F c/ reported Hx of DM2, who presents for evaluation of multiple complaints, including GI Sx...and eventual ams, for which neurology is consulted. 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 The clinical picture was initially concerning for meningoencephalitis..CSF evaluation is inconsistent w/ infection...the erythrocytosis possibly due to a traumatic tap.. Head CT was notable for a left frontal hyperdensity, likely hemorrhagic t ransformation of an above referenced focus of acute ischemia is the context of severe hypertension.. CTA head and neck is negative for multifocal stenoses, which might otherwise suggests vasculitis, etc. EEG was without epileptiform activity Echo is unrevealing Ammonia wnl, HIV/RPR neg, ESR wnl Hypercoagulability panel is in progress P: Continue to hold all sedating medications where possible Continued BP control to goal SBP 120-160 Hold antiplatelets/anticoagulants til 05/15, then start baby asa daily thereafter.. Other management and supportive care per primary Will follow clinically Consultation Date/Type/Reason Admit Date/Time May 08, 2019 at 23:21 Type of Consult Neurology Reason for Consultation ams Requesting Provider: DAMIEN CHOUDHARY Date/Time of Note DATE: 05/14/19 TIME: 09:06 24 HR Interval Summary Free Text/Dictation Continues acute care Exam/Review of Systems Exam Vitals Vital Signs Date Temp Pulse Resp B/P (MAP) Pulse Ox O2 O2 Flow FiO2 Time Delivery Rate 05/14/19 66 17 135/72 99 05:45 (93) 05/14/19 30 05:37 05/14/19 Mechanical 05:00 Ventilator 05/14/19 97.8 00:00 Intake and Output 05/13/19 05/13/19 05/14/19 1515:00 23:00 07:00 IntakeIntake Total 950.25 ml 1477 ml 1360 ml OutputOutput Total 570 ml 600 ml 340 ml BalanceBalance 380.25 ml 877 ml 1020 ml Results Result Diagram: 05/14/19 0430 05/14/19 0430 Results 24hrs Laboratory Tests Test 05/13/19 09:17 05/13/19 13:41 05/13/19 17:38 05/13/19 20:53 Bedside Glucose 169 173 159 166 Test 05/14/19 00:01 05/14/19 04:30 05/14/19 05:08 Bedside Glucose 182 160 White Blood Count 9.5 # Red Blood Count 4.73 Hemoglobin 13.6 Hematocrit 42.6 Mean Corpuscular 90.1 Volume Mean Corpuscular 28.8 L Hemoglobin Mean Corpuscular 31.9 L Hemoglobin Concent Red Cell 14.1 Distribution Width Platelet Count 185 # Mean Platelet Volume 11.9 H Immature 0.500 H Granulocytes % Neutrophils % 72.0 Lymphocytes % 14.8 L Monocytes % 10.8 Eosinophils % 1.7 Basophils % 0.2 Nucleated Red Blood 0.0 Cells % Immature 0.050 H Granulocytes # Neutrophils # 6.8 Lymphocytes # 1.4 Monocytes # 1.0 H Eosinophils # 0.2 Basophils # 0.0 Nucleated Red Blood 0.0 Cells # Sodium Level 144 Potassium Level 3.4 L Chloride Level 115 H Carbon Dioxide Level 23 Anion Gap 6 Blood Urea Nitrogen 23 H Creatinine 0.85 Est Glomerular > 60 Filtrat Rate mL/min Glucose Level 154 Calcium Level 8.6 Medications Medication Current Medications IV Flush (NS 3 ml) 3 ml PER PROTOCOL IV ; Start 05/09/19 at 00:00 Ondansetron HCl (Zofran Inj) 4 mg Q6H PRN IV NAUSEA/VOMITING; Start 05/09/19 at 00:00 Acetaminophen (Tylenol Tab) 650 mg Q6H PRN PO .PAIN 1-3 OR TEMP; Start 05/09/19 at 00:00 Acetaminophen/ Hydrocodone Bitart ([place] (5/325)) 1 tab Q6H PRN PO .MOD PAIN 4- 6; Start 05/09/19 at 00:00 Morphine Sulfate (morphine) 2 mg Q4H PRN IV .SEVERE PAIN 7-10 Last administered on 05/13/19at 15:41; Admin Dose 2 MG; Start 05/09/19 at 00:00 Docusate Sodium (Colace) 100 mg Q12H PRN PO .CONSTIPATION; Start 05/09/19 at 00:00 Magnesium Hydroxide (Milk Of Mag) 30 ml DAILY PRN PO .CONSTIPATION; Start 05/09/19 at 00:00 Hydralazine HCl (Apresoline) 10 mg Q6H PRN IV ELEVATED BLOOD PRESSURE Last administered on 05/13/19at 11:27; Admin Dose 10 MG; Start 05/09/19 at 00:00 Nitroglycerin (Nitroglycerin (Sl Tab) 0.4 Mg) 1 tab Q5M PRN SL ANGINA; Start 05/09/19 at 00:00 Labetalol HCl (Labetalol) 10 mg Q6H PRN IV sys bp > 160 Last administered on 05/12/19at 19:03; Admin Dose 10 MG; Start 05/09/19 at 05:00 Insulin Aspart (Novolog Insulin Pen) NOVOLOG *MODERATE* ALGORI... Q4 SC Last administered on 05/14/19at 05:14; Admin Dose 2 UNIT; Start 05/09/19 at 18:00 Miscellaneous Information 1 ea NOTE XX ; Start 05/09/19 at 17:00 Glucose (Glutose) 15 gm Q15M PRN PO DECREASED GLUCOSE; Start 05/09/19 at 17:00 Glucose (Glutose) 22.5 gm Q15M PRN PO DECREASED GLUCOSE; Start 05/09/19 at 17:00 Dextrose (D50w Syringe) 25 ml Q15M PRN IV DECREASED GLUCOSE; Start 05/09/19 at 17:00 Dextrose (D50w Syringe) 50 ml Q15M PRN IV DECREASED GLUCOSE; Start 05/09/19 at 17:00 Glucagon (Glucagen) 1 mg Q15M PRN IM DECREASED GLUCOSE; Start 05/09/19 at 17:00 Glucose (Glutose) 15 gm Q15M PRN BUCCAL DECREASED GLUCOSE; Start 05/09/19 at 17:00 Hydralazine HCl (Apresoline) 100 mg Q8 PO Last administered on 05/14/19at 05:06; Admin Dose 100 MG; Start 05/10/19 at 14:00 Atorvastatin Calcium (Lipitor) 80 mg HS NGT Last administered on 05/13/19at 21:01; Admin Dose 80 MG; Start 05/11/19 at 21:00 Insulin Glargine (Lantus) 10 units DAILY@2000 SC Last administered on 05/13/19at 20:56; Admin Dose 10 UNITS; Start 05/11/19 at 20:00 Nicardipine HCl 50 mg/Sodium Chloride 500 ml @ 0 mls/hr TITRATE IV Last administered on 05/14/19at 05:33; Admin Dose 150 MLS/HR; Start 05/13/19 at 12:00 Lorazepam (Ativan) 2 mg Q6H PRN IV agitation; Start 05/13/19 at 12:00 Famotidine (Pepcid) 20 mg Q12 PO Last administered on 05/13/19at 21:02; Admin Dose 20 MG; Start 05/13/19 at 21:00 IV Flush (NS 10 ml) 10 ml PRN PRN IV IV PROTOCOL; Start 05/13/19 at 14:00 Lisinopril (Zestril) 40 mg DAILY GTB ; Start 05/15/19 at 09:00; Status UNV Metoprolol Tartrate (Lopressor) 200 mg BID NGT ; Start 05/14/19 at 21:00; Status UNV Potassium Chloride (Potassium Chloride Pwd/Soln) 40 meq ONCE ONCE NGT ; Start 05/14/19 at 09:30; Stop 05/14/19 at 09:31; Status UNV JOSÉ TORO May 14, 2019 09:06
[2019-05-14] MEDS ORDERED: POTASSIUM CHLORIDE 20 MEQ POWDER FOR ORAL SOLN NGT ONE (09:30)
[2019-05-14] MEDS: METOPROLOL 100 MG TAB NGT SCH ×2 (09:49→21:09)
[2019-05-14] MEDS: FAMOTIDINE 20 MG TAB PO SCH ×2 (09:49→21:08)
--- NOTE | 2019-05-14 10:38 | PN ---
Date/Time of Note Date/Time of Note DATE: 05/14/19 TIME: 10:35 Assessment/Plan VTE Prophylaxis Risk score (from Ns)>0 risk: 8 [place] [facility] [place] Pharmacological prophylaxis: NA/contraindicated Pharm contraindication: bleeding Lines/Catheters IV Catheter Type (from Nrsg): PICC Line Central line still needed: Yes Urinary Cath still in place: Yes Reason Cath still needed: other (indicate) (intubated) Assessment/Plan Assessment/Plan 39-year-old morbidly obese woman with history of HTN who comes in with decreased p.o. intake, lethargy preceded by delerium and nausea and vomiting. 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 #Encephalopathy - MRI brain shows several new and old infarcts. There is a small frontal bleed which may be hemorrhagic infarct. - No concern for infectious meningitis based on LP, stop antibiotics. - Decadron also ordered on admission. - Discontinue droplet isolation - HIV negative - Dr. Laurent following. - Limit sedation as much as possible. #GARDENIA - Likely due to iatrogenic vancomycin toxicity - Dr. Haas following. - Now resolved. #Respiratory failure - Intubated due to poor mental status - When patient is awake and following commands, extubation per pulmonary. - On tube feeds. # Hypertension - Continue home dose hydralazine (maxed out) - Cont metoprolol, titrating up. - Also restarted home lisinopril now that GARDENIA has resolved. - On nicardipene gtt, plan to wean off. # DVT prophylaxis: SCDs 39 minutes critical care time spent on this patient. Result Diagram: 05/14/19 0430 05/14/19 043 Subjective 24 Hr Interval Summary Free Text/Dictation No acute overnight events. Still on nicardipene gtt. Exam/Review of Systems Exam Vitals Vital Signs Date Temp Pulse Resp B/P (MAP) Pulse Ox O2 O2 Flow FiO2 Time Delivery Rate 05/14/19 66 17 135/72 99 05:45 (93) 05/14/19 30 05:37 05/14/19 Mechanical 05:00 Ventilator 05/14/19 97.8 00:00 Intake and Output 05/13/19 05/13/19 05/14/19 1515:00 23:00 07:00 IntakeIntake Total 950.25 ml 1477 ml 1360 ml OutputOutput Total 570 ml 600 ml 340 ml BalanceBalance 380.25 ml 877 ml 1020 ml Exam Gen: Morbidly obese woman lying supine in bed, intubated Eyes: Slightly injected conjunctivae, early conjunctival edema. Normal pupils ENT: Normal External Ears, Nose and Mouth. Moist mucous membranes. ET tube in place. Neck: No meningismus. No lymphadenopathy. Resp: Mechanical breath sounds bilaterally. Cardio: Regular rate and rhythm, no murmurs appreciated. Abd: Soft, obese, nondistended, normal bowel sounds Ext: No lower extremity edema bilaterally Neuro: Eyes open spontaneously, not tracking. Moving L arm and L leg spontaneously. Moves R leg to pain. Does not move R arm to pain. Not following commands. Results Results 24hrs Laboratory Tests Test 05/13/19 13:41 05/13/19 17:38 05/13/19 20:53 05/14/19 00:01 Bedside Glucose 173 159 166 182 Test 05/14/19 04:30 05/14/19 05:08 05/14/19 09:48 White Blood Count 9.5 # Red Blood Count 4.73 Hemoglobin 13.6 Hematocrit 42.6 Mean Corpuscular 90.1 Volume Mean Corpuscular 28.8 L Hemoglobin Mean Corpuscular 31.9 L Hemoglobin Concent Red Cell 14.1 Distribution Width Platelet Count 185 # Mean Platelet Volume 11.9 H Immature 0.500 H Granulocytes % Neutrophils % 72.0 Lymphocytes % 14.8 L Monocytes % 10.8 Eosinophils % 1.7 Basophils % 0.2 Nucleated Red Blood 0.0 Cells % Immature 0.050 H Granulocytes # Neutrophils # 6.8 Lymphocytes # 1.4 Monocytes # 1.0 H Eosinophils # 0.2 Basophils # 0.0 Nucleated Red Blood 0.0 Cells # Sodium Level 144 Potassium Level 3.4 L Chloride Level 115 H Carbon Dioxide Level 23 Anion Gap 6 Blood Urea Nitrogen 23 H Creatinine 0.85 Est Glomerular > 60 Filtrat Rate mL/min Glucose Level 154 Calcium Level 8.6 Bedside Glucose 160 171 Medications Medication Current Medications IV Flush (NS 3 ml) 3 ml PER PROTOCOL IV ; Start 05/09/19 at 00:00 Ondansetron HCl (Zofran Inj) 4 mg Q6H PRN IV NAUSEA/VOMITING; Start 05/09/19 at 00:00 Acetaminophen (Tylenol Tab) 650 mg Q6H PRN PO .PAIN 1-3 OR TEMP; Start 05/09/19 at 00:00 Acetaminophen/ Hydrocodone Bitart ([place] (5/325)) 1 tab Q6H PRN PO .MOD PAIN 4- 6; Start 05/09/19 at 00:00 Morphine Sulfate (morphine) 2 mg Q4H PRN IV .SEVERE PAIN 7-10 Last administered on 05/13/19at 15:41; Admin Dose 2 MG; Start 05/09/19 at 00:00 Docusate Sodium (Colace) 100 mg Q12H PRN PO .CONSTIPATION; Start 05/09/19 at 00:00 Magnesium Hydroxide (Milk Of Mag) 30 ml DAILY PRN PO .CONSTIPATION; Start 05/09/19 at 00:00 Hydralazine HCl (Apresoline) 10 mg Q6H PRN IV ELEVATED BLOOD PRESSURE Last administered on 05/13/19at 11:27; Admin Dose 10 MG; Start 05/09/19 at 00:00 Nitroglycerin (Nitroglycerin (Sl Tab) 0.4 Mg) 1 tab Q5M PRN SL ANGINA; Start 05/09/19 at 00:00 Labetalol HCl (Labetalol) 10 mg Q6H PRN IV sys bp > 160 Last administered on 05/12/19at 19:03; Admin Dose 10 MG; Start 05/09/19 at 05:00 Insulin Aspart (Novolog Insulin Pen) NOVOLOG *MODERATE* ALGORI... Q4 SC Last administered on 05/14/19at 10:02; Admin Dose 2 UNIT; Start 05/09/19 at 18:00 Miscellaneous Information 1 ea NOTE XX ; Start 05/09/19 at 17:00 Glucose (Glutose) 15 gm Q15M PRN PO DECREASED GLUCOSE; Start 05/09/19 at 17:00 Glucose (Glutose) 22.5 gm Q15M PRN PO DECREASED GLUCOSE; Start 05/09/19 at 17:00 Dextrose (D50w Syringe) 25 ml Q15M PRN IV DECREASED GLUCOSE; Start 05/09/19 at 17:00 Dextrose (D50w Syringe) 50 ml Q15M PRN IV DECREASED GLUCOSE; Start 05/09/19 at 17:00 Glucagon (Glucagen) 1 mg Q15M PRN IM DECREASED GLUCOSE; Start 05/09/19 at 17:00 Glucose (Glutose) 15 gm Q15M PRN BUCCAL DECREASED GLUCOSE; Start 05/09/19 at 17:00 Hydralazine HCl (Apresoline) 100 mg Q8 PO Last administered on 05/14/19at 05:06; Admin Dose 100 MG; Start 05/10/19 at 14:00 Atorvastatin Calcium (Lipitor) 80 mg HS NGT Last administered on 05/13/19at 21:01; Admin Dose 80 MG; Start 05/11/19 at 21:00 Insulin Glargine (Lantus) 10 units DAILY@2000 SC Last administered on 05/13/19 20:56; Admin Dose 10 UNITS; Start 05/11/19 at 20:00 Nicardipine HCl 50 mg/Sodium Chloride 500 ml @ 0 mls/hr TITRATE IV Last administered on 05/14/19 09:49; Admin Dose 150 MLS/HR; Start 05/13/19 at 12:00 Lorazepam (Ativan) 2 mg Q6H PRN IV agitation; Start 05/13/19 at 12:00 Famotidine (Pepcid) 20 mg Q12 PO Last administered on 05/14/19 09:49; Admin Dose 20 MG; Start 05/13/19 at 21:00 IV Flush (NS 10 ml) 10 ml PRN PRN IV IV PROTOCOL; Start 05/13/19 at 14:00 Lisinopril (Zestril) 40 mg DAILY GTB Last administered on 05/14/19 09:50; Admin Dose 40 MG; Start 05/14/19 at 09:00 Metoprolol Tartrate (Lopressor) 200 mg BID NGT Last administered on 05/14/19 09:49; Admin Dose 200 MG; Start 05/14/19 at 09:15 DAVID QUIÑONEZ MD May 14, 2019 10:38
--- NOTE | 2019-05-14 12:00 | CONS ---
Assessment/Plan Assessment/Plan Hospital Course (Demo Recall) 1. Nonoliguric acute kidney injury with previous baseline creatinine 0.72 mg/dL. Etiology of GARDENIA is multifactorial secondary to vancomycin nephrotoxicity, possible contrast-associated nephropathy, hemodynamics. The patient's renal function has improved and stable. off ivf and on lisinopril. Will monitor renal function, electrolytes closely. 2. Hypokalemia. Continue to monitor and replete. 3. Mineral bone disorder, monitor calcium and phosphorus levels. 4. Acute encephalopathy, etiology secondary to acute cerebrovascular accident. The patient's MRI shows multiple infarcts. Etiology is unclear, possible cardioembolic. Continue to monitor. Patient with noted hemorrhagic conversion in the left frontal region. Follow up with neurology and neurosurgery. 5. Hypertensive urgency. Continue current blood pressure regimen. Wean off Cardene drip. on lisinopril. 6. Ventilator-dependent respiratory failure. Vent settings and ABG was reviewed. 7. Cerebrovascular accident with frontal hematoma. Continue medical management as stated above. 8. Tachyarrhythmia. Continue to monitor. 9. SIRS. Continue to monitor. Consultation Date/Type/Reason Admit Date/Time May 08, 2019 at 23:21 Initial Consult Date 05/10/19 Requesting Provider: DAMIEN CHOUDHARY Date/Time of Note DATE: 05/14/19 TIME: 11:59 24 HR Interval Summary Free Text/Dictation on nicardipene gtt with bp control adequate urine output remains intubated d/w rn pe gen nad cv rrr pulm ctab abd soft nd, nt +bs ext: no edema Exam/Review of Systems Exam Vitals Vital Signs Date Temp Pulse Resp B/P (MAP) Pulse Ox O2 O2 Flow FiO2 Time Delivery Rate 05/14/19 72 08:00 05/14/19 17 135/72 99 05:45 (93) 05/14/19 30 05:37 05/14/19 Mechanical 05:00 Ventilator 05/14/19 97.8 00:00 Intake and Output 05/13/19 05/13/19 05/14/19 1515:00 23:00 07:00 IntakeIntake Total 950.25 ml 1477 ml 1360 ml OutputOutput Total 570 ml 600 ml 340 ml BalanceBalance 380.25 ml 877 ml 1020 ml Results Result Diagram: 05/14/19 0430 05/14/19 0430 Results 24hrs Laboratory Tests Test 05/13/19 13:41 05/13/19 17:38 05/13/19 20:53 05/14/19 00:01 Bedside Glucose 173 159 166 182 Test 05/14/19 04:30 05/14/19 05:08 05/14/19 09:48 White Blood Count 9.5 # Red Blood Count 4.73 Hemoglobin 13.6 Hematocrit 42.6 Mean Corpuscular 90.1 Volume Mean Corpuscular 28.8 L Hemoglobin Mean Corpuscular 31.9 L Hemoglobin Concent Red Cell 14.1 Distribution Width Platelet Count 185 # Mean Platelet Volume 11.9 H Immature 0.500 H Granulocytes % Neutrophils % 72.0 Lymphocytes % 14.8 L Monocytes % 10.8 Eosinophils % 1.7 Basophils % 0.2 Nucleated Red Blood 0.0 Cells % Immature 0.050 H Granulocytes # Neutrophils # 6.8 Lymphocytes # 1.4 Monocytes # 1.0 H Eosinophils # 0.2 Basophils # 0.0 Nucleated Red Blood 0.0 Cells # Sodium Level 144 Potassium Level 3.4 L Chloride Level 115 H Carbon Dioxide Level 23 Anion Gap 6 Blood Urea Nitrogen 23 H Creatinine 0.85 Est Glomerular > 60 Filtrat Rate mL/min Glucose Level 154 Calcium Level 8.6 Bedside Glucose 160 171 Medications Medication Current Medications IV Flush (NS 3 ml) 3 ml PER PROTOCOL IV ; Start 05/09/19 at 00:00 Ondansetron HCl (Zofran Inj) 4 mg Q6H PRN IV NAUSEA/VOMITING; Start 05/09/19 at 00:00 Acetaminophen (Tylenol Tab) 650 mg Q6H PRN PO .PAIN 1-3 OR TEMP; Start 05/09/19 at 00:00 Acetaminophen/ Hydrocodone Bitart ([place] (5/325)) 1 tab Q6H PRN PO .MOD PAIN 4- 6; Start 05/09/19 at 00:00 Morphine Sulfate (morphine) 2 mg Q4H PRN IV .SEVERE PAIN 7-10 Last administered on 05/13/19at 15:41; Admin Dose 2 MG; Start 05/09/19 at 00:00 Docusate Sodium (Colace) 100 mg Q12H PRN PO .CONSTIPATION; Start 05/09/19 at 00:00 Magnesium Hydroxide (Milk Of Mag) 30 ml DAILY PRN PO .CONSTIPATION; Start 05/09/19 at 00:00 Hydralazine HCl (Apresoline) 10 mg Q6H PRN IV ELEVATED BLOOD PRESSURE Last administered on 05/13/19at 11:27; Admin Dose 10 MG; Start 05/09/19 at 00:00 Nitroglycerin (Nitroglycerin (Sl Tab) 0.4 Mg) 1 tab Q5M PRN SL ANGINA; Start 05/09/19 at 00:00 Labetalol HCl (Labetalol) 10 mg Q6H PRN IV sys bp > 160 Last administered on 05/12/19at 19:03; Admin Dose 10 MG; Start 05/09/19 at 05:00 Insulin Aspart (Novolog Insulin Pen) NOVOLOG *MODERATE* ALGORI... Q4 SC Last ad ministered on 05/14/19at 10:02; Admin Dose 2 UNIT; Start 05/09/19 at 18:00 Miscellaneous Information 1 ea NOTE XX ; Start 05/09/19 at 17:00 Glucose (Glutose) 15 gm Q15M PRN PO DECREASED GLUCOSE; Start 05/09/19 at 17:00 Glucose (Glutose) 22.5 gm Q15M PRN PO DECREASED GLUCOSE; Start 05/09/19 at 17:00 Dextrose (D50w Syringe) 25 ml Q15M PRN IV DECREASED GLUCOSE; Start 05/09/19 at 17:00 Dextrose (D50w Syringe) 50 ml Q15M PRN IV DECREASED GLUCOSE; Start 05/09/19 at 17:00 Glucagon (Glucagen) 1 mg Q15M PRN IM DECREASED GLUCOSE; Start 05/09/19 at 17:00 Glucose (Glutose) 15 gm Q15M PRN BUCCAL DECREASED GLUCOSE; Start 05/09/19 at 17:00 Hydralazine HCl (Apresoline) 100 mg Q8 PO Last administered on 05/14/19at 05:06; Admin Dose 100 MG; Start 05/10/19 at 14:00 Atorvastatin Calcium (Lipitor) 80 mg HS NGT Last administered on 05/13/19at 21:01; Admin Dose 80 MG; Start 05/11/19 at 21:00 Insulin Glargine (Lantus) 10 units DAILY@2000 SC Last administered on 05/13/19at 20:56; Admin Dose 10 UNITS; Start 05/11/19 at 20:00 Nicardipine HCl 50 mg/Sodium Chloride 500 ml @ 0 mls/hr TITRATE IV Last adminis tered on 05/14/19at 09:49; Admin Dose 150 MLS/HR; Start 05/13/19 at 12:00 Lorazepam (Ativan) 2 mg Q6H PRN IV agitation; Start 05/13/19 at 12:00 Famotidine (Pepcid) 20 mg Q12 PO Last administered on 05/14/19at 09:49; Admin Dose 20 MG; Start 05/13/19 at 21:00 IV Flush (NS 10 ml) 10 ml PRN PRN IV IV PROTOCOL; Start 05/13/19 at 14:00 Lisinopril (Zestril) 40 mg DAILY GTB Last administered on 05/14/19at 09:50; Admin Dose 40 MG; Start 05/14/19 at 09:00 Metoprolol Tartrate (Lopressor) 200 mg BID NGT Last administered on 05/14/19at 09:49; Admin Dose 200 MG; Start 05/14/19 at 09:15 AMANDO ALMENDAREZ MD May 14, 2019 12:00
--- NOTE | 2019-05-14 12:44 | CONS ---
Assessment/Plan Assessment/Plan Hospital Course (Demo Recall) Patient is awake and comfortable on vent she had a low-grade fever yesterday of 100.1 currently afebrile and was afebrile overnight WBC today 9.5 no shift no bands BUN 23 creatinine 0.85 Indwelling: Endotracheal tube orogastric tube Bojorquez catheter PICC Physical examination: Morbidly obese well-developed middle-aged woman who is intubated sedated in no distress. Head atraumatic normocephalic sclera nonicteric unable to assess pupils as her pupils facing down. Bugle mucosa dry. Neck is supple chest rise symmetrical breath sounds diminished bases. Heart: S1-S2. Abdomen obese soft bowel tones present. Extremities without cyanosis. Assessment: 1. Acute encephalopathy 2 to acute infarcts 2. Acute respiratory failure, rule out aspiration 3. Morbid obesity 4. Acute kidney insufficiency 5. Hypertension Plan: Patient remains hemodynamically stable, off abx, will reculture as needed, follow neurology recommendations, vent per pulmonary Consultation Date/Type/Reason Admit Date/Time May 08, 2019 at 23:21 Initial Consult Date 05/10/19 Type of Consult id Requesting Provider: DAMIEN CHOUDHARY Date/Time of Note DATE: 05/14/19 TIME: 12:43 Exam/Review of Systems Exam Vitals Vital Signs Date Temp Pulse Resp B/P (MAP) Pulse Ox O2 O2 Flow FiO2 Time Delivery Rate 05/14/19 72 08:00 05/14/19 17 135/72 99 05:45 (93) 05/14/19 30 05:37 05/14/19 Mechanical 05:00 Ventilator 05/14/19 97.8 00:00 Intake and Output 05/13/19 05/13/19 05/14/19 1515:00 23:00 07:00 IntakeIntake Total 950.25 ml 1477 ml 1360 ml OutputOutput Total 570 ml 600 ml 340 ml BalanceBalance 380.25 ml 877 ml 1020 ml Results Result Diagram: 05/14/19 0430 05/14/19 0430 Results 24hrs Laboratory Tests Test 05/13/19 13:41 05/13/19 17:38 05/13/19 20:53 05/14/19 00:01 Bedside Glucose 173 159 166 182 Test 05/14/19 04:30 05/14/19 05:08 05/14/19 09:48 White Blood Count 9.5 # Red Blood Count 4.73 Hemoglobin 13.6 Hematocrit 42.6 Mean Corpuscular 90.1 Volume Mean Corpuscular 28.8 L Hemoglobin Mean Corpuscular 31.9 L Hemoglobin Concent Red Cell 14.1 Distribution Width Platelet Count 185 # Mean Platelet Volume 11.9 H Immature 0.500 H Granulocytes % Neutrophils % 72.0 Lymphocytes % 14.8 L Monocytes % 10.8 Eosinophils % 1.7 Basophils % 0.2 Nucleated Red Blood 0.0 Cells % Immature 0.050 H Granulocytes # Neutrophils # 6.8 Lymphocytes # 1.4 Monocytes # 1.0 H Eosinophils # 0.2 Basophils # 0.0 Nucleated Red Blood 0.0 Cells # Sodium Level 144 Potassium Level 3.4 L Chloride Level 115 H Carbon Dioxide Level 23 Anion Gap 6 Blood Urea Nitrogen 23 H Creatinine 0.85 Est Glomerular > 60 Filtrat Rate mL/min Glucose Level 154 Calcium Level 8.6 Bedside Glucose 160 171 Medications Medication Current Medications IV Flush (NS 3 ml) 3 ml PER PROTOCOL IV ; Start 05/09/19 at 00:00 Ondansetron HCl (Zofran Inj) 4 mg Q6H PRN IV NAUSEA/VOMITING; Start 05/09/19 at 00:00 Acetaminophen (Tylenol Tab) 650 mg Q6H PRN PO .PAIN 1-3 OR TEMP; Start 05/09/19 at 00:00 Acetaminophen/ Hydrocodone Bitart ([place] (5/325)) 1 tab Q6H PRN PO .MOD PAIN 4- 6; Start 05/09/19 at 00:00 Morphine Sulfate (morphine) 2 mg Q4H PRN IV .SEVERE PAIN 7-10 Last administered on 05/13/19at 15:41; Admin Dose 2 MG; Start 05/09/19 at 00:00 Docusate Sodium (Colace) 100 mg Q12H PRN PO .CONSTIPATION; Start 05/09/19 at 00:00 Magnesium Hydroxide (Milk Of Mag) 30 ml DAILY PRN PO .CONSTIPATION; Start 05/09/19 at 00:00 Hydralazine HCl (Apresoline) 10 mg Q6H PRN IV ELEVATED BLOOD PRESSURE Last administered on 05/13/19at 11:27; Admin Dose 10 MG; Start 05/09/19 at 00:00 Nitroglycerin (Nitroglycerin (Sl Tab) 0.4 Mg) 1 tab Q5M PRN SL ANGINA; Start at 00:00 Labetalol HCl (Labetalol) 10 mg Q6H PRN IV sys bp > 160 Last administered on 05/12/19at 19:03; Admin Dose 10 MG; Start 05/09/19 at 05:00 Insulin Aspart (Novolog Insulin Pen) NOVOLOG *MODERATE* ALGORI... Q4 SC Last administered on 05/14/19at 10:02; Admin Dose 2 UNIT; Start 05/09/19 at 18:00 Miscellaneous Information 1 ea NOTE XX ; Start 05/09/19 at 17:00 Glucose (Glutose) 15 gm Q15M PRN PO DECREASED GLUCOSE; Start 05/09/19 at 17:00 Glucose (Glutose) 22.5 gm Q15M PRN PO DECREASED GLUCOSE; Start 05/09/19 at 17:00 Dextrose (D50w Syringe) 25 ml Q15M PRN IV DECREASED GLUCOSE; Start 05/09/19 at 17:00 Dextrose (D50w Syringe) 50 ml Q15M PRN IV DECREASED GLUCOSE; Start 05/09/19 at 17:00 Glucagon (Glucagen) 1 mg Q15M PRN IM DECREASED GLUCOSE; Start 05/09/19 at 17:00 Glucose (Glutose) 15 gm Q15M PRN BUCCAL DECREASED GLUCOSE; Start 05/09/19 at 17:00 Hydralazine HCl (Apresoline) 100 mg Q8 PO Last administered on 05/14/19at 05:06; Admin Dose 100 MG; Start 05/10/19 at 14:00 Atorvastatin Calcium (Lipitor) 80 mg HS NGT Last administered on 05/13/19at 21:01; Admin Dose 80 MG; Start 05/11/19 at 21:00 Insulin Glargine (Lantus) 10 units DAILY@2000 SC Last administered on 05/13/19at 20:56; Admin Dose 10 UNITS; Start 05/11/19 at 20:00 Nicardipine HCl 50 mg/Sodium Chloride 500 ml @ 0 mls/hr TITRATE IV Last administered on 05/14/19at 09:49; Admin Dose 150 MLS/HR; Start 05/13/19 at 12:00 Lorazepam (Ativan) 2 mg Q6H PRN IV agitation; Start 05/13/19 at 12:00 Famotidine (Pepcid) 20 mg Q12 PO Last administered on 05/14/19at 09:49; Admin Dose 20 MG; Start 05/13/19 at 21:00 IV Flush (NS 10 ml) 10 ml PRN PRN IV IV PROTOCOL; Start 05/13/19 at 14:00 Lisinopril (Zestril) 40 mg DAILY GTB Last administered on 05/14/19at 09:50; Admin Dose 40 MG; Start 05/14/19 at 09:00 Metoprolol Tartrate (Lopressor) 200 mg BID NGT Last administered on 05/14/19at 09:49; Admin Dose 200 MG; Start 05/14/19 at 09:15 ROHIT CHAWLA NP May 14, 2019 12:44
--- NOTE | 2019-05-14 14:30 | CONS ---
Consult Date/Type/Reason Admit Date/Time May 08, 2019 at 23:21 Initial Consult Date 05/10/19 Type of Consultation: Pulm/CCM Requesting Provider: DAMIEN CHOUDHARY Date/Time of Note DATE: 05/14/19 TIME: 14:25 Subjective Unresponsive on the vent. No events. On nicardipine gtt. Objective Vitals Vital Signs Date Temp Pulse Resp B/P (MAP) Pulse Ox O2 O2 Flow FiO2 Time Delivery Rate 05/14/19 62 20 144/86 99 13:15 (105) 05/14/19 Mechanical 13:00 Ventilator 05/14/19 98.2 12:00 05/14/19 30 11:17 Intake and Output 05/13/19 05/13/19 05/14/19 1515:00 23:00 07:00 IntakeIntake Total 950.25 ml 1477 ml 1360 ml OutputOutput Total 570 ml 600 ml 340 ml BalanceBalance 380.25 ml 877 ml 1020 ml Exam HEENT: Neck supple; no JVD; no LAD; + ET tube CVS: RRR, S1 and S2 CHEST: Clear ABD: Soft, NT, + BS EXT: No c/c/e NEURO: Comatose; RUE flaccid Results/Medications Result Diagram: 05/14/19 0430 05/14/19 0430 Results 24 hrs Laboratory Tests Test 05/13/19 17:38 05/13/19 20:53 05/14/19 00:01 05/14/19 04:30 Bedside Glucose 159 166 182 White Blood Count 9.5 # Red Blood Count 4.73 Hemoglobin 13.6 Hematocrit 42.6 Mean Corpuscular 90.1 Volume Mean Corpuscular 28.8 L Hemoglobin Mean Corpuscular 31.9 L Hemoglobin Concent Red Cell 14.1 Distribution Width Platelet Count 185 # Mean Platelet Volume 11.9 H Immature 0.500 H Granulocytes % Neutrophils % 72.0 Lymphocytes % 14.8 L Monocytes % 10.8 Eosinophils % 1.7 Basophils % 0.2 Nucleated Red Blood 0.0 Cells % Immature 0.050 H Granulocytes # Neutrophils # 6.8 Lymphocytes # 1.4 Monocytes # 1.0 H Eosinophils # 0.2 Basophils # 0.0 Nucleated Red Blood 0.0 Cells # Sodium Level 144 Potassium Level 3.4 L Chloride Level 115 H Carbon Dioxide Level 23 Anion Gap 6 Blood Urea Nitrogen 23 H Creatinine 0.85 Est Glomerular > 60 Filtrat Rate mL/min Glucose Level 154 Calcium Level 8.6 Test 05/14/19 05:08 05/14/19 09:48 05/14/19 13:50 Bedside Glucose 160 171 207 Home Meds Reported Medications Lisinopril* (Lisinopril*) 20 Mg Tablet, 20 MG PO BID, #30 TAB 05/09/19 Hydralazine Hcl* (Hydralazine Hcl*) 100 Mg Tablet, 100 MG PO Q8, #90 TAB 05/09/19 Glimepiride* (Glimepiride*) 2 Mg Tablet, 2 MG PO WITH BREAKFAST, TAB 05/09/19 Metformin Hcl* (Metformin Hcl*) 1,000 Mg Tablet, 1000 MG PO WITH BREAKFAST DINNE, #60 TAB 05/09/19 Famotidine* (Famotidine*) 20 Mg Tablet, 20 MG PO BID, #60 TAB 05/09/19 Medications Current Medications IV Flush (NS 3 ml) 3 ml PER PROTOCOL IV ; Start 05/09/19 at 00:00 Ondansetron HCl (Zofran Inj) 4 mg Q6H PRN IV NAUSEA/VOMITING; Start 05/09/19 at 00:00 Acetaminophen (Tylenol Tab) 650 mg Q6H PRN PO .PAIN 1-3 OR TEMP; Start 05/09/19 at 00:00 Acetaminophen/ Hydrocodone Bitart ([place] (5/325)) 1 tab Q6H PRN PO .MOD PAIN 4- 6; Start 05/09/19 at 00:00 Morphine Sulfate (morphine) 2 mg Q4H PRN IV .SEVERE PAIN 7-10 Last administered on 05/13/19at 15:41; Admin Dose 2 MG; Start 05/09/19 at 00:00 Docusate Sodium (Colace) 100 mg Q12H PRN PO .CONSTIPATION; Start 05/09/19 at 00:00 Magnesium Hydroxide (Milk Of Mag) 30 ml DAILY PRN PO .CONSTIPATION; Start 05/09/19 at 00:00 Hydralazine HCl (Apresoline) 10 mg Q6H PRN IV ELEVATED BLOOD PRESSURE Last administered on 05/13/19at 11:27; Admin Dose 10 MG; Start 05/09/19 at 00:00 Nitroglycerin (Nitroglycerin (Sl Tab) 0.4 Mg) 1 tab Q5M PRN SL ANGINA; Start 05/09/19 at 00:00 Labetalol HCl (Labetalol) 10 mg Q6H PRN IV sys bp > 160 Last administered on 05/12/19at 19:03; Admin Dose 10 MG; Start 05/09/19 at 05:00 Insulin Aspart (Novolog Insulin Pen) NOVOLOG *MODERATE* ALGORI... Q4 SC Last administered on 05/14/19at 14:00; Admin Dose 4 UNIT; Start 05/09/19 at 18:00 Miscellaneous Information 1 ea NOTE XX ; Start 05/09/19 at 17:00 Glucose (Glutose) 15 gm Q15M PRN PO DECREASED GLUCOSE; Start 05/09/19 at 17:00 Glucose (Glutose) 22.5 gm Q15M PRN PO DECREASED GLUCOSE; Start 05/09/19 at 17:00 Dextrose (D50w Syringe) 25 ml Q15M PRN IV DECREASED GLUCOSE; Start 05/09/19 at 17:00 Dextrose (D50w Syringe) 50 ml Q15M PRN IV DECREASED GLUCOSE; Start 05/09/19 at 17:00 Glucagon (Glucagen) 1 mg Q15M PRN IM DECREASED GLUCOSE; Start 05/09/19 at 17:00 Glucose (Glutose) 15 gm Q15M PRN BUCCAL DECREASED GLUCOSE; Start 05/09/19 at 17:00 Hydralazine HCl (Apresoline) 100 mg Q8 PO Last administered on 05/14/19at 13:52; Admin Dose 100 MG; Start 05/10/19 at 14:00 Atorvastatin Calcium (Lipitor) 80 mg HS NGT Last administered on 05/13/19at 21:01; Admin Dose 80 MG; Start 05/11/19 at 21:00 Insulin Glargine (Lantus) 10 units DAILY@2000 SC Last administered on 05/13/19at 20:56; Admin Dose 10 UNITS; Start 05/11/19 at 20:00 Nicardipine HCl 50 mg/Sodium Chloride 500 ml @ 0 mls/hr TITRATE IV Last administered on 05/14/19at 13:00; Admin Dose 130 MLS/HR; Start 05/13/19 at 12:00 Lorazepam (Ativan) 2 mg Q6H PRN IV agitation; Start 05/13/19 at 12:00 Famotidine (Pepcid) 20 mg Q12 PO Last administered on 05/14/19at 09:49; Admin Dose 20 MG; Start 05/13/19 at 21:00 IV Flush (NS 10 ml) 10 ml PRN PRN IV IV PROTOCOL; Start 05/13/19 at 14:00 Lisinopril (Zestril) 40 mg DAILY GTB Last administered on 05/14/19at 09:50; Admin Dose 40 MG; Start 05/14/19 at 09:00 Metoprolol Tartrate (Lopressor) 200 mg BID NGT Last administered on 05/14/19at 09:49; Admin Dose 200 MG; Start 05/14/19 at 09:15 Assessment/Plan Assessment/Plan (Daily) IMP: 1. 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 A meningoencephalitis appears less likely. 2. VDRF--2/2 #1 3. [place] 4. HTN 5. FEN RECS: 1. Continue nicardipine gtt to MAP 120-140 2. Vent support 3. Neuro monitoring; limit all sedatives narcotics 4. Am labs 35 min cc time ILANA CHOU MD May 14, 2019 14:30
[2019-05-14] MEDS: INSULIN GLARGINE [LANTus] (100 UNITS/ML) SYG SC SCH (20:54)
[2019-05-14] MEDS: ATORVASTATIN 80 MG TAB NGT SCH (21:09)
[2019-05-15] VITALS (67 sets, daily range): BP systolic 133–201; BP diastolic 71–151; PULSE 55–90; RESP 12–45
[2019-05-15] MEDS: hydrALAzine 20 MG INJ IV PRN ×3 (00:36→11:08)
[2019-05-15] MEDS: niCARdipine 50 MG in SOD CHLORIDE 0.9% 480 ML IV SCH ×6 (01:10→21:02)
[2019-05-15] MEDS: INSULIN ASPART [NOVOLOG] 3 ML PEN SC SCH ×6 (01:13→20:41)
[2019-05-15] MEDS: LABETALOL HCL 20MG INJ IV PRN (05:24)
--- NOTE | 2019-05-15 09:27 | PN ---
Date/Time of Note Date/Time of Note DATE: 05/15/19 TIME: 09:21 Assessment/Plan VTE Prophylaxis Risk score (from Ns)>0 risk: 11 SCD applied (from [facility] [place]): Yes Pharmacological prophylaxis: NA/contraindicated Pharm contraindication: bleeding, hemorrhagic infarct Lines/Catheters IV Catheter Type (from Nrsg): PICC Line Central line still needed: Yes Urinary Cath still in place: Yes Reason Cath still needed: skin wounds contaminated by urine Assessment/Plan Assessment/Plan 39-year-old morbidly obese woman with history of HTN who comes in with decreased p.o. intake, lethargy preceded by delerium and nausea and vomiting. 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 #Encephalopathy - MRI brain shows several new and old infarcts concerning for central embolic source. There is a small frontal bleed which may be hemorrhagic infarct. - TTE done without evidence of vegetations or thrombus. - No concern for infectious meningitis based on LP, stop antibiotics. - HIV negative - Dr. Laurent following. - Limit sedation as much as possible. #GARDENIA - Likely due to iatrogenic vancomycin toxicity - Dr. Haas following. - Now resolved. #Respiratory failure - Intubated due to poor mental status - Self-extubated 05/15 AM - Currently protecting airway. Monitor cautiously in ICU versus tele bed near nursing station. # Hypertension - Continue home dose hydralazine (maxed out) - Maxed on metoprolol - Maxed lisinopril this morning. - Started nifedipene today. - Still requiring nicardipene gtt, continue to titrate up PO meds - If not passing swallow eval will need NG tube. # DVT prophylaxis: SCDs 39 minutes critical care time spent on this patient. Result Diagram: 05/15/19 0500 05/15/19 0500 Subjective 24 Hr Interval Summary Free Text/Dictation Self extubated last night! Now breathing comfortably on nasal cannula protecting airway. Nurse reports she was following commands. Not for me though. Exam/Review of Systems Exam Vitals Vital Signs Date Temp Pulse Resp B/P (MAP) Pulse Ox O2 O2 Flow FiO2 Time Delivery Rate 05/15/19 3.0 08:18 05/15/19 70 34 158/76 99 06:30 (103) 05/15/19 Nasal 06:00 Cannula 05/15/19 98.1 04:00 05/15/19 30 01:11 Intake and Output 05/14/19 05/14/19 05/15/19 1515:00 23:00 07:00 IntakeIntake Total 1525.0 ml 1337.5 ml 1200 ml OutputOutput Total 260 ml 310 ml 260 ml BalanceBalance 1265.0 ml 1027.5 ml 940 ml Exam Gen: Morbidly obese woman lying supine in bed Eyes: Slightly injected conjunctivae. Normal pupils ENT: Normal External Ears, Nose and Mouth. Moist mucous membranes. Neck: No meningismus. No lymphadenopathy. Resp: Clear to auscultation bilaterally. Cardio: Regular rate and rhythm, no murmurs appreciated. Abd: Soft, obese, nondistended, normal bowel sounds Ext: No lower extremity edema bilaterally Neuro: Eyes open spontaneously, tracking. Moving L arm and L leg spontaneously. Moves R leg and R arm to pain. Not following commands. Results Results 24hrs Laboratory Tests Test 05/14/19 09:48 05/14/19 13:50 05/14/19 17:25 05/14/19 20:51 Bedside Glucose 171 207 177 151 Test 05/15/19 01:11 05/15/19 03:30 05/15/19 05:00 05/15/19 05:19 Bedside Glucose 173 135 Blood Gas Blood arterial Blood arterial Specimen Source Arterial Blood 05/15/2019 3:30: 05/15/2019 5:06: Date Drawn 55 AM 46 AM Arterial Blood 7.441 7.449 pH (Temp corrected) Arterial Blood 30.4 L 29.4 L pCO2 (Temp correct) Arterial Blood 131.5 H 66.3 L pO2 (Temp corrected) Arterial Blood 20.2 L 19.9 L HCO3 Arterial Blood -2.6 -2.6 Base Excess Arterial Blood 98.8 H 93.6 L Oxygen Saturatio n Kiran Test ACCEPTAB ACCEPTAB Arterial Blood Left Radial Left Radial Gas Puncture Site Arterial 0.4 0.9 Blood Carboxyhem oglobin Arterial Blood 0.3 0.3 Methemoglobin Blood Gas A-a O2 551.1 H 113.1 H Differential Oxyhemoglobin 98.1 92.5 L Percent Blood Gas 37.0 37.0 Temperature Blood Gas Actual 29 Respiration Rate Blood Gas MASK - NRB NASAL CANNULA Modality FiO2 100.0 30.0 Blood Gas S.H. LW Notified Whom Blood Gas 05/15/2019 3:39: 05/15/2019 5:17: Notified Time 02 AM 17 AM White Blood 10.9 H Count Red Blood Count 5.15 Hemoglobin 14.7 Hematocrit 46.7 Mean Corpuscular 90.7 Volume Mean Corpuscular 28.5 L Hemoglobin Mean Corpuscular 31.5 L Hemoglobin Dominique nt Red Cell 14.2 Distribution Width Platelet Count 144 # Mean Platelet 12.4 H Volume Immature 0.300 Granulocytes % Neutrophils % 72.3 Lymphocytes % 14.7 L Monocytes % 10.7 Eosinophils % 1.6 Basophils % 0.4 Nucleated Red 0.0 Blood Cells % Immature 0.030 Granulocytes # Neutrophils # 7.9 H Lymphocytes # 1.6 Monocytes # 1.2 H Eosinophils # 0.2 Basophils # 0.0 Nucleated Red 0.0 Blood Cells # Sodium Level 146 H Potassium Level 4.1 Chloride Level 117 H Carbon Dioxide 22 Level Anion Gap 7 Blood Urea 28 H Nitrogen Creatinine 0.93 Est Glomerular > 60 Filtrat Rate mL/min Glucose Level 158 Calcium Level 9.0 Test 05/15/19 09:19 Bedside Glucose 127 Medications Medication Current Medications IV Flush (NS 3 ml) 3 ml PER PROTOCOL IV ; Start 05/09/19 at 00:00 Ondansetron HCl (Zofran Inj) 4 mg Q6H PRN IV NAUSEA/VOMITING; Start 05/09/19 at 00:00 Acetaminophen (Tylenol Tab) 650 mg Q6H PRN PO .PAIN 1-3 OR TEMP; Start 05/09/19 at 00:00 Acetaminophen/ Hydrocodone Bitart ([place] (5/325)) 1 tab Q6H PRN PO .MOD PAIN 4- 6; Start 05/09/19 at 00:00 Morphine Sulfate (morphine) 2 mg Q4H PRN IV .SEVERE PAIN 7-10 Last administered on 05/13/19at 15:41; Admin Dose 2 MG; Start 05/09/19 at 00:00 Docusate Sodium (Colace) 100 mg Q12H PRN PO .CONSTIPATION; Start 05/09/19 at 00:00 Magnesium Hydroxide (Milk Of Mag) 30 ml DAILY PRN PO .CONSTIPATION; Start 05/09/19 at 00:00 Hydralazine HCl (Apresoline) 10 mg Q6H PRN IV ELEVATED BLOOD PRESSURE Last administered on 05/15/19at 07:05; Admin Dose 10 MG; Start 05/09/19 at 00:00 Nitroglycerin (Nitroglycerin (Sl Tab) 0.4 Mg) 1 tab Q5M PRN SL ANGINA; Start 05/09/19 at 00:00 Labetalol HCl (Labetalol) 10 mg Q6H PRN IV sys bp > 160 Last administered on 05/15/19at 05:24; Admin Dose 10 MG; Start 05/09/19 at 05:00 Insulin Aspart (Novolog Insulin Pen) NOVOLOG *MODERATE* ALGORI... Q4 SC Last administered on 05/15/19at 01:13; Admin Dose 2 UNIT; Start 05/09/19 at 18:00 Miscellaneous Information 1 ea NOTE XX ; Start 05/09/19 at 17:00 Glucose (Glutose) 15 gm Q15M PRN PO DECREASED GLUCOSE; Start 05/09/19 at 17:00 Glucose (Glutose) 22.5 gm Q15M PRN PO DECREASED GLUCOSE; Start 05/09/19 at 17:00 Dextrose (D50w Syringe) 25 ml Q15M PRN IV DECREASED GLUCOSE; Start 05/09/19 at 17:00 Dextrose (D50w Syringe) 50 ml Q15M PRN IV DECREASED GLUCOSE; Start 05/09/19 at 17:00 Glucagon (Glucagen) 1 mg Q15M PRN IM DECREASED GLUCOSE; Start 05/09/19 at 17:00 Glucose (Glutose) 15 gm Q15M PRN BUCCAL DECREASED GLUCOSE; Start 05/09/19 at 17:00 Hydralazine HCl (Apresoline) 100 mg Q8 PO Last administered on 05/14/19at 21:10; Admin Dose 100 MG; Start 05/10/19 at 14:00 Atorvastatin Calcium (Lipitor) 80 mg HS NGT Last administered on 05/14/19at 21:09; Admin Dose 80 MG; Start 05/11/19 at 21:00 Insulin Glargine (Lantus) 10 units DAILY@2000 SC Last administered on 05/14/19at 20:54; Admin Dose 10 UNITS; Start 05/11/19 at 20:00 Nicardipine HCl 50 mg/Sodium Chloride 500 ml @ 0 mls/hr TITRATE IV Last administered on 05/15/19at 08:19; Admin Dose 150 MLS/HR; Start 05/13/19 at 12:00 Lorazepam (Ativan) 2 mg Q6H PRN IV agitation; Start 05/13/19 at 12:00 Famotidine (Pepcid) 20 mg Q12 PO Last administered on 05/14/19at 21:08; Admin Dose 20 MG; Start 05/13/19 at 21:00 IV Flush (NS 10 ml) 10 ml PRN PRN IV IV PROTOCOL; Start 05/13/19 at 14:00 Metoprolol Tartrate (Lopressor) 200 mg BID NGT Last administered on 05/14/19at 21:09; Admin Dose 200 MG; Start 05/14/19 at 09:15 Lisinopril (Zestril) 40 mg BID GTB ; Start 05/15/19 at 09:00 Nifedipine (Procardia) 10 mg Q6 PO ; Start 05/15/19 at 08:30 DAVID QUIÑONEZ MD May 15, 2019 09:27
--- NOTE | 2019-05-15 11:52 | CONS ---
Assessment/Plan Assessment/Plan Hospital Course (Demo Recall) 1. Nonoliguric acute kidney injury with previous baseline creatinine 0.72 mg/dL. Etiology of GARDENIA is multifactorial secondary to vancomycin nephrotoxicity, possible contrast-associated nephropathy, hemodynamics. overall renal function has improved with mild rise in cr likely related to fluid overload. will give lasix 20mg ivp x1. Will monitor renal function, electrolytes closely. 2. Hypokalemia. replace as needed 3. Mineral bone disorder, monitor calcium and phosphorus levels. 4. Acute encephalopathy, etiology secondary to acute cerebrovascular accident. The patient's MRI shows multiple infarcts. Etiology is unclear, possible cardioembolic. Continue to monitor. Patient with noted hemorrhagic conversion in the left frontal region. Follow up with neurology and neurosurgery. 5. Hypertensive urgency. Continue current blood pressure regimen. Wean off Cardene drip. on lisinopril. 6. Ventilator-dependent respiratory failure. extubated 7. Cerebrovascular accident with frontal hematoma. Continue medical management as stated above. 8. Tachyarrhythmia. Continue to monitor. 9. SIRS. Continue to monitor. Consultation Date/Type/Reason Admit Date/Time May 08, 2019 at 23:21 Initial Consult Date 05/10/19 Requesting Provider: DAMIEN CHOUDHARY Date/Time of Note DATE: 05/15/19 TIME: 11:50 24 HR Interval Summary Free Text/Dictation pt is still on nicardipine gtt no f/c d/w rn gen nonverbal cv rrr pulm coarse bs abd soft, nd, nt +bs ext: trace edema Exam/Review of Systems Exam Vitals Vital Signs Date Temp Pulse Resp B/P (MAP) Pulse Ox O2 O2 Flow FiO2 Time Delivery Rate 05/15/19 82 29 193/84 98 Nasal 3.0 10:00 (120) Cannula 05/15/19 98.4 07:30 05/15/19 30 01:11 Intake and Output 05/14/19 05/14/19 05/15/19 1515:00 23:00 07:00 IntakeIntake Total 1525.0 ml 1337.5 ml 1200 ml OutputOutput Total 260 ml 310 ml 290 ml BalanceBalance 1265.0 ml 1027.5 ml 910 ml Results Result Diagram: 05/15/19 0500 05/15/19 0500 Results 24hrs Laboratory Tests Test 05/14/19 13:50 05/14/19 17:25 05/14/19 20:51 05/15/19 01:11 Bedside Glucose 207 177 151 173 Test 05/15/19 03:30 05/15/19 05:00 05/15/19 05:19 05/15/19 09:19 Blood Gas Blood arterial Blood arterial Specimen Source Arterial Blood 05/15/2019 3:30: 05/15/2019 5:06: Date Drawn 55 AM 46 AM Arterial Blood 7.441 7.449 pH (Temp corrected) Arterial Blood 30.4 L 29.4 L pCO2 (Temp correct) Arterial Blood 131.5 H 66.3 L pO2 (Temp corrected) Arterial Blood 20.2 L 19.9 L HCO3 Arterial Blood -2.6 -2.6 Base Excess Arterial Blood 98.8 H 93.6 L Oxygen Saturatio n Kiran Test ACCEPTAB ACCEPTAB Arterial Blood Left Radial Left Radial Gas Puncture Site Arterial 0.4 0.9 Blood Carboxyhem oglobin Arterial Blood 0.3 0.3 Methemoglobin Blood Gas A-a O2 551.1 H 113.1 H Differential Oxyhemoglobin 98.1 92.5 L Percent Blood Gas 37.0 37.0 Temperature Blood Gas Actual 29 Respiration Rate Blood Gas MASK - NRB NASAL CANNULA Modality FiO2 100.0 30.0 Blood Gas S.H. LW Notified Whom Blood Gas 05/15/2019 3:39: 05/15/2019 5:17: Notified Time 02 AM 17 AM White Blood 10.9 H Count Red Blood Count 5.15 Hemoglobin 14.7 Hematocrit 46.7 Mean Corpuscular 90.7 Volume Mean Corpuscular 28.5 L Hemoglobin Mean Corpuscular 31.5 L Hemoglobin Dominique nt Red Cell 14.2 Distribution Width Platelet Count 144 # Mean Platelet 12.4 H Volume Immature 0.300 Granulocytes % Neutrophils % 72.3 Lymphocytes % 14.7 L Monocytes % 10.7 Eosinophils % 1.6 Basophils % 0.4 Nucleated Red 0.0 Blood Cells % Immature 0.030 Granulocytes # Neutrophils # 7.9 H Lymphocytes # 1.6 Monocytes # 1.2 H Eosinophils # 0.2 Basophils # 0.0 Nucleated Red 0.0 Blood Cells # Sodium Level 146 H Potassium Level 4.1 Chloride Level 117 H Carbon Dioxide 22 Level Anion Gap 7 Blood Urea 28 H Nitrogen Creatinine 0.93 Est Glomerular > 60 Filtrat Rate mL/min Glucose Level 158 Calcium Level 9.0 Bedside Glucose 135 127 Medications Medication Current Medications IV Flush (NS 3 ml) 3 ml PER PROTOCOL IV ; Start 05/09/19 at 00:00 Ondansetron HCl (Zofran Inj) 4 mg Q6H PRN IV NAUSEA/VOMITING; Start 05/09/19 at 00:00 Acetaminophen (Tylenol Tab) 650 mg Q6H PRN PO .PAIN 1-3 OR TEMP; Start 05/09/19 at 00:00 Acetaminophen/ Hydrocodone Bitart ([place] (5/325)) 1 tab Q6H PRN PO .MOD PAIN 4- 6; Start 05/09/19 at 00:00 Morphine Sulfate (morphine) 2 mg Q4H PRN IV .SEVERE PAIN 7-10 Last administered on 05/13/19at 15:41; Admin Dose 2 MG; Start 05/09/19 at 00:00 Docusate Sodium (Colace) 100 mg Q12H PRN PO .CONSTIPATION; Start 05/09/19 at 00:00 Magnesium Hydroxide (Milk Of Mag) 30 ml DAILY PRN PO .CONSTIPATION; Start 05/09/19 at 00:00 Hydralazine HCl (Apresoline) 10 mg Q6H PRN IV ELEVATED BLOOD PRESSURE Last administered on 05/15/19at 11:08; Admin Dose 10 MG; Start 05/09/19 at 00:00 Nitroglycerin (Nitroglycerin (Sl Tab) 0.4 Mg) 1 tab Q5M PRN SL ANGINA; Start 05/09/19 at 00:00 Labetalol HCl (Labetalol) 10 mg Q6H PRN IV sys bp > 160 Last administered on 05/15/19at 05:24; Admin Dose 10 MG; Start 05/09/19 at 05:00 Insulin Aspart (Novolog Insulin Pen) NOVOLOG *MODERATE* ALGORI... Q4 SC Last administered on 05/15/19at 01:13; Admin Dose 2 UNIT; Start 05/09/19 at 18:00 Miscellaneous Information 1 ea NOTE XX ; Start 05/09/19 at 17:00 Glucose (Glutose) 15 gm Q15M PRN PO DECREASED GLUCOSE; Start 05/09/19 at 17:00 Glucose (Glutose) 22.5 gm Q15M PRN PO DECREASED GLUCOSE; Start 05/09/19 at 17:00 Dextrose (D50w Syringe) 25 ml Q15M PRN IV DECREASED GLUCOSE; Start 05/09/19 at 17:00 Dextrose (D50w Syringe) 50 ml Q15M PRN IV DECREASED GLUCOSE; Start 05/09/19 at 17:00 Glucagon (Glucagen) 1 mg Q15M PRN IM DECREASED GLUCOSE; Start 05/09/19 at 17:00 Glucose (Glutose) 15 gm Q15M PRN BUCCAL DECREASED GLUCOSE; Start 05/09/19 at 17:00 Hydralazine HCl (Apresoline) 100 mg Q8 PO Last administered on 05/14/19at 21:10; Admin Dose 100 MG; Start 05/10/19 at 14:00 Atorvastatin Calcium (Lipitor) 80 mg HS NGT Last administered on 05/14/19at 21:09; Admin Dose 80 MG; Start 05/11/19 at 21:00 Insulin Glargine (Lantus) 10 units DAILY@2000 SC Last administered on 05/14/19at 20:54; Admin Dose 10 UNITS; Start 05/11/19 at 20:00 Nicardipine HCl 50 mg/Sodium Chloride 500 ml @ 0 mls/hr TITRATE IV Last administered on 05/15/19 08:19; Admin Dose 150 MLS/HR; Start 05/13/19 at 12:00 Lorazepam (Ativan) 2 mg Q6H PRN IV agitation; Start 05/13/19 at 12:00 Famotidine (Pepcid) 20 mg Q12 PO Last administered on 05/14/19at 21:08; Admin Dose 20 MG; Start 05/13/19 at 21:00 IV Flush (NS 10 ml) 10 ml PRN PRN IV IV PROTOCOL; Start 05/13/19 at 14:00 Metoprolol Tartrate (Lopressor) 200 mg BID NGT Last administered on 05/14/19at 21:09; Admin Dose 200 MG; Start 05/14/19 at 09:15 Lisinopril (Zestril) 40 mg BID GTB ; Start 05/15/19 at 09:00 Nifedipine (Procardia) 10 mg Q6 PO ; Start 05/15/19 at 08:30 AMANDO ALMENDAREZ MD May 15, 2019 11:52
[2019-05-15] MEDS: NIFEdipine 10 MG CAP PO SCH ×3 (11:56→17:14)
[2019-05-15] MEDS: LISINOPRIL 20 MG TAB GTB SCH ×2 (11:56→20:29)
[2019-05-15] MEDS: METOPROLOL 100 MG TAB NGT SCH ×2 (11:57→20:30)
[2019-05-15] MEDS: FAMOTIDINE 20 MG TAB PO SCH ×2 (11:57→20:30)
[2019-05-15] MEDS ORDERED: FUROSEMIDE 20 MG INJ IV ONE (12:00)
--- NOTE | 2019-05-15 12:05 | CONS ---
Consult Date/Type/Reason Admit Date/Time May 08, 2019 at 23:21 Initial Consult Date 05/10/19 Type of Consultation: Pulm/CCM Requesting Provider: DAMIEN CHOUDHARY Date/Time of Note DATE: 05/15/19 TIME: 12:02 Subjective No events. Remains comatose on the vent. Objective Vitals Vital Signs Date Temp Pulse Resp B/P (MAP) Pulse Ox O2 O2 Flow FiO2 Time Delivery Rate 05/15/19 82 29 193/84 98 Nasal 3.0 10:00 (120) Cannula 05/15/19 98.4 07:30 05/15/19 30 01:11 Intake and Output 05/14/19 05/14/19 05/15/19 1515:00 23:00 07:00 IntakeIntake Total 1525.0 ml 1337.5 ml 1200 ml OutputOutput Total 260 ml 310 ml 290 ml BalanceBalance 1265.0 ml 1027.5 ml 910 ml Exam HEENT: Neck supple; no JVD; no LAD; + ET tube CVS: RRR, S1 and S2 CHEST: Clear ABD: Soft, NT, + BS EXT: No c/c/e NEURO: Comatose; RUE flaccid Results/Medications Result Diagram: 05/15/19 0500 05/15/19 0500 Results 24 hrs Laboratory Tests Test 05/14/19 13:50 05/14/19 17:25 05/14/19 20:51 05/15/19 01:11 Bedside Glucose 207 177 151 173 Test 05/15/19 03:30 05/15/19 05:00 05/15/19 05:19 05/15/19 09:19 Blood Gas Blood arterial Blood arterial Specimen Source Arterial Blood 05/15/2019 3:30: 05/15/2019 5:06: Date Drawn 55 AM 46 AM Arterial Blood 7.441 7.449 pH (Temp corrected) Arterial Blood 30.4 L 29.4 L pCO2 (Temp correct) Arterial Blood 131.5 H 66.3 L pO2 (Temp corrected) Arterial Blood 20.2 L 19.9 L HCO3 Arterial Blood -2.6 -2.6 Base Excess Arterial Blood 98.8 H 93.6 L Oxygen Saturatio n Kiran Test ACCEPTAB ACCEPTAB Arterial Blood Left Radial Left Radial Gas Puncture Site Arterial 0.4 0.9 Blood Carboxyhem oglobin Arterial Blood 0.3 0.3 Methemoglobin Blood Gas A-a O2 551.1 H 113.1 H Differential Oxyhemoglobin 98.1 92.5 L Percent Blood Gas 37.0 37.0 Temperature Blood Gas Actual 29 Respiration Rate Blood Gas MASK - NRB NASAL CANNULA Modality FiO2 100.0 30.0 Blood Gas S.H. LW Notified Whom Blood Gas 05/15/2019 3:39: 05/15/2019 5:17: Notified Time 02 AM 17 AM White Blood 10.9 H Count Red Blood Count 5.15 Hemoglobin 14.7 Hematocrit 46.7 Mean Corpuscular 90.7 Volume Mean Corpuscular 28.5 L Hemoglobin Mean Corpuscular 31.5 L Hemoglobin Dominique nt Red Cell 14.2 Distribution Width Platelet Count 144 # Mean Platelet 12.4 H Volume Immature 0.300 Granulocytes % Neutrophils % 72.3 Lymphocytes % 14.7 L Monocytes % 10.7 Eosinophils % 1.6 Basophils % 0.4 Nucleated Red 0.0 Blood Cells % Immature 0.030 Granulocytes # Neutrophils # 7.9 H Lymphocytes # 1.6 Monocytes # 1.2 H Eosinophils # 0.2 Basophils # 0.0 Nucleated Red 0.0 Blood Cells # Sodium Level 146 H Potassium Level 4.1 Chloride Level 117 H Carbon Dioxide 22 Level Anion Gap 7 Blood Urea 28 H Nitrogen Creatinine 0.93 Est Glomerular > 60 Filtrat Rate mL/min Glucose Level 158 Calcium Level 9.0 Bedside Glucose 135 127 Home Meds Reported Medications Lisinopril* (Lisinopril*) 20 Mg Tablet, 20 MG PO BID, #30 TAB 05/09/19 Hydralazine Hcl* (Hydralazine Hcl*) 100 Mg Tablet, 100 MG PO Q8, #90 TAB 05/09/19 Glimepiride* (Glimepiride*) 2 Mg Tablet, 2 MG PO WITH BREAKFAST, TAB 05/09/19 Metformin Hcl* (Metformin Hcl*) 1,000 Mg Tablet, 1000 MG PO WITH BREAKFAST DIN NE, #60 TAB 05/09/19 Famotidine* (Famotidine*) 20 Mg Tablet, 20 MG PO BID, #60 TAB 05/09/19 Medications Current Medications IV Flush (NS 3 ml) 3 ml PER PROTOCOL IV ; Start 05/09/19 at 00:00 Ondansetron HCl (Zofran Inj) 4 mg Q6H PRN IV NAUSEA/VOMITING; Start 05/09/19 at 00:00 Acetaminophen (Tylenol Tab) 650 mg Q6H PRN PO .PAIN 1-3 OR TEMP; Start 05/09/19 at 00:00 Acetaminophen/ Hydrocodone Bitart ([place] (5/325)) 1 tab Q6H PRN PO .MOD PAIN 4- 6; Start 05/09/19 at 00:00 Morphine Sulfate (morphine) 2 mg Q4H PRN IV .SEVERE PAIN 7-10 Last administered on 05/13/19at 15:41; Admin Dose 2 MG; Start 05/09/19 at 00:00 Docusate Sodium (Colace) 100 mg Q12H PRN PO .CONSTIPATION; Start 05/09/19 at 00:00 Magnesium Hydroxide (Milk Of Mag) 30 ml DAILY PRN PO .CONSTIPATION; Start 05/09/19 at 00:00 Hydralazine HCl (Apresoline) 10 mg Q6H PRN IV ELEVATED BLOOD PRESSURE Last administered on 05/15/19at 11:08; Admin Dose 10 MG; Start 05/09/19 at 00:00 Nitroglycerin (Nitroglycerin (Sl Tab) 0.4 Mg) 1 tab Q5M PRN SL ANGINA; Start 05/09/19 at 00:00 Labetalol HCl (Labetalol) 10 mg Q6H PRN IV sys bp > 160 Last administered on 05/15/19at 05:24; Admin Dose 10 MG; Start 05/09/19 at 05:00 Insulin Aspart (Novolog Insulin Pen) NOVOLOG *MODERATE* ALGORI... Q4 SC Last administered on 05/15/19at 01:13; Admin Dose 2 UNIT; Start 05/09/19 at 18:00 Miscellaneous Information 1 ea NOTE XX ; Start 05/09/19 at 17:00 Glucose (Glutose) 15 gm Q15M PRN PO DECREASED GLUCOSE; Start 05/09/19 at 17:00 Glucose (Glutose) 22.5 gm Q15M PRN PO DECREASED GLUCOSE; Start 05/09/19 at 17:00 Dextrose (D50w Syringe) 25 ml Q15M PRN IV DECREASED GLUCOSE; Start 05/09/19 at 17:00 Dextrose (D50w Syringe) 50 ml Q15M PRN IV DECREASED GLUCOSE; Start 05/09/19 at 17:00 Glucagon (Glucagen) 1 mg Q15M PRN IM DECREASED GLUCOSE; Start 05/09/19 at 17:00 Glucose (Glutose) 15 gm Q15M PRN BUCCAL DECREASED GLUCOSE; Start 05/09/19 at 17:00 Hydralazine HCl (Apresoline) 100 mg Q8 PO Last administered on 05/14/19 21:10; Admin Dose 100 MG; Start 05/10/19 at 14:00 Atorvastatin Calcium (Lipitor) 80 mg HS NGT Last administered on 05/14/19 21:09; Admin Dose 80 MG; Start 05/11/19 at 21:00 Insulin Glargine (Lantus) 10 units DAILY@2000 SC Last administered on 05/14/19 20:54; Admin Dose 10 UNITS; Start 05/11/19 at 20:00 Nicardipine HCl 50 mg/Sodium Chloride 500 ml @ 0 mls/hr TITRATE IV Last administered on 05/15/19 08:19; Admin Dose 150 MLS/HR; Start 05/13/19 at 12:00 Lorazepam (Ativan) 2 mg Q6H PRN IV agitation; Start 05/13/19 at 12:00 Famotidine (Pepcid) 20 mg Q12 PO Last administered on 05/15/19 11:57; Admin Dose 20 MG; Start 05/13/19 at 21:00 IV Flush (NS 10 ml) 10 ml PRN PRN IV IV PROTOCOL; Start 05/13/19 at 14:00 Metoprolol Tartrate (Lopressor) 200 mg BID NGT Last administered on 05/15/19 11:57; Admin Dose 200 MG; Start 05/14/19 at 09:15 Lisinopril (Zestril) 40 mg BID GTB Last administered on 05/15/19 11:56; Admin Dose 40 MG; Start 05/15/19 at 09:00 Nifedipine (Procardia) 10 mg Q6 PO Last administered on 05/15/19 11:56; Admin Dose 10 MG; Start 05/15/19 at 08:30 Assessment/Plan Assessment/Plan (Daily) IMP: 1. 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 A meningoencephalitis appears less likely. A consideration would be ADEM or vasculitis-related injury. 2. VDRF--2/2 #1 3. G[place]ENIA 4. HTN 5. FEN RECS: 1. Continue nicardipine gtt to MAP 120-140 2. Vent support 3. Neuro monitoring; limit all sedatives narcotics 4. Would discuss other diagnostic possibilities with neuroradiology and neurol ogy services 5. TF/Free H20 35 min cc time ILANA CHOU MD May 15, 2019 12:05
--- NOTE | 2019-05-15 12:48 | CONS ---
Assessment/Plan Assessment/Plan Hospital Course (Demo Recall) Patient self extubated herself last night she is awake looks comfortable afebrile and in no distress. WBC 10.9 platelets 144 neutrophils 72.3 BUN 28 creatinine 0.93 Chest x-ray this morning revealed cardiomegaly and central pulmonary congestion. Right lower lobe atelectasis and small pleural effusion Indwelling: Bojorquez catheter PICC Physical examination: Morbidly obese well-developed middle-aged woman who is intubated sedated in no distress. Head atraumatic normocephalic sclera nonic teric unable to assess pupils as her pupils facing down. Bugle mucosa dry. Neck is supple chest rise symmetrical breath sounds diminished bases. Heart: S1-S2. Abdomen obese soft bowel tones present. Extremities without cyanosis. Assessment: 1. Acute encephalopathy 2 to acute infarcts, resolving 2. Acute respiratory failure, status post self extubated 3. Morbid obesity 4. Acute kidney insufficiency 5. Hypertension Plan: Patient is stable on nasal cannula, off abx, will reculture as needed, follow neurology and pulmonary recommendations, aspiration precautions Consultation Date/Type/Reason Admit Date/Time May 08, 2019 at 23:21 Initial Consult Date 05/10/19 Type of Consult id Requesting Provider: DAMIEN CHOUDHARY Date/Time of Note DATE: 05/15/19 TIME: 12:47 Exam/Review of Systems Exam Vitals Vital Signs Date Temp Pulse Resp B/P (MAP) Pulse Ox O2 O2 Flow FiO2 Time Delivery Rate 05/15/19 82 29 193/84 98 Nasal 3.0 10:00 (120) Cannula 05/15/19 98.4 07:30 05/15/19 30 01:11 Intake and Output 05/14/19 05/14/19 05/15/19 1515:00 23:00 07:00 IntakeIntake Total 1525.0 ml 1337.5 ml 1200 ml OutputOutput Total 260 ml 310 ml 290 ml BalanceBalance 1265.0 ml 1027.5 ml 910 ml Results Result Diagram: 05/15/19 0500 05/15/19 0500 Results 24hrs Laboratory Tests Test 05/14/19 13:50 05/14/19 17:25 05/14/19 20:51 05/15/19 01:11 Bedside Glucose 207 177 151 173 Test 05/15/19 03:30 05/15/19 05:00 05/15/19 05:19 05/15/19 09:19 Blood Gas Blood arterial Blood arterial Specimen Source Arterial Blood 05/15/2019 3:30: 05/15/2019 5:06: Date Drawn 55 AM 46 AM Arterial Blood 7.441 7.449 pH (Temp corrected) Arterial Blood 30.4 L 29.4 L pCO2 (Temp correct) Arterial Blood 131.5 H 66.3 L pO2 (Temp corrected) Arterial Blood 20.2 L 19.9 L HCO3 Arterial Blood -2.6 -2.6 Base Excess Arterial Blood 98.8 H 93.6 L Oxygen Saturatio n Kiran Test ACCEPTAB ACCEPTAB Arterial Blood Left Radial Left Radial Gas Puncture Site Arterial 0.4 0.9 Blood Carboxyhem oglobin Arterial Blood 0.3 0.3 Methemoglobin Blood Gas A-a O2 551.1 H 113.1 H Differential Oxyhemoglobin 98.1 92.5 L Percent Blood Gas 37.0 37.0 Temperature Blood Gas Actual 29 Respiration Rate Blood Gas MASK - NRB NASAL CANNULA Modality FiO2 100.0 30.0 Blood Gas S.H. LW Notified Whom Blood Gas 05/15/2019 3:39: 05/15/2019 5:17: Notified Time 02 AM 17 AM White Blood 10.9 H Count Red Blood Count 5.15 Hemoglobin 14.7 Hematocrit 46.7 Mean Corpuscular 90.7 Volume Mean Corpuscular 28.5 L Hemoglobin Mean Corpuscular 31.5 L Hemoglobin Dominique nt Red Cell 14.2 Distribution Width Platelet Count 144 # Mean Platelet 12.4 H Volume Immature 0.300 Granulocytes % Neutrophils % 72.3 Lymphocytes % 14.7 L Monocytes % 10.7 Eosinophils % 1.6 Basophils % 0.4 Nucleated Red 0.0 Blood Cells % Immature 0.030 Granulocytes # Neutrophils # 7.9 H Lymphocytes # 1.6 Monocytes # 1.2 H Eosinophils # 0.2 Basophils # 0.0 Nucleated Red 0.0 Blood Cells # Sodium Level 146 H Potassium Level 4.1 Chloride Level 117 H Carbon Dioxide 22 Level Anion Gap 7 Blood Urea 28 H Nitrogen Creatinine 0.93 Est Glomerular > 60 Filtrat Rate mL/min Glucose Level 158 Calcium Level 9.0 Bedside Glucose 135 127 Test 05/15/19 12:12 Bedside Glucose 134 Medications Medication Current Medications IV Flush (NS 3 ml) 3 ml PER PROTOCOL IV ; Start 05/09/19 at 00:00 Ondansetron HCl (Zofran Inj) 4 mg Q6H PRN IV NAUSEA/VOMITING; Start 05/09/19 at 00:00 Acetaminophen (Tylenol Tab) 650 mg Q6H PRN PO .PAIN 1-3 OR TEMP; Start 05/09/19 at 00:00 Acetaminophen/ Hydrocodone Bitart ([place] (5/325)) 1 tab Q6H PRN PO .MOD PAIN 4- 6; Start 05/09/19 at 00:00 Morphine Sulfate (morphine) 2 mg Q4H PRN IV .SEVERE PAIN 7-10 Last administered on 05/13/19at 15:41; Admin Dose 2 MG; Start 05/09/19 at 00:00 Docusate Sodium (Colace) 100 mg Q12H PRN PO .CONSTIPATION; Start 05/09/19 at 00:00 Magnesium Hydroxide (Milk Of Mag) 30 ml DAILY PRN PO .CONSTIPATION; Start 05/09/19 at 00:00 Hydralazine HCl (Apresoline) 10 mg Q6H PRN IV ELEVATED BLOOD PRESSURE Last administered on 05/15/19at 11:08; Admin Dose 10 MG; Start 05/09/19 at 00:00 Nitroglycerin (Nitroglycerin (Sl Tab) 0.4 Mg) 1 tab Q5M PRN SL ANGINA; Start 05/09/19 at 00:00 Labetalol HCl (Labetalol) 10 mg Q6H PRN IV sys bp > 160 Last administered on 05/15/19at 05:24; Admin Dose 10 MG; Start 05/09/19 at 05:00 Insulin Aspart (Novolog Insulin Pen) NOVOLOG *MODERATE* ALGORI... Q4 SC Last administered on 05/15/19at 01:13; Admin Dose 2 UNIT; Start 05/09/19 at 18:00 Miscellaneous Information 1 ea NOTE XX ; Start 05/09/19 at 17:00 Glucose (Glutose) 15 gm Q15M PRN PO DECREASED GLUCOSE; Start 05/09/19 at 17:00 Glucose (Glutose) 22.5 gm Q15M PRN PO DECREASED GLUCOSE; Start 05/09/19 at 17:00 Dextrose (D50w Syringe) 25 ml Q15M PRN IV DECREASED GLUCOSE; Start 05/09/19 at 17:00 Dextrose (D50w Syringe) 50 ml Q15M PRN IV DECREASED GLUCOSE; Start 05/09/19 at 17:00 Glucagon (Glucagen) 1 mg Q15M PRN IM DECREASED GLUCOSE; Start 05/09/19 at 17:00 Glucose (Glutose) 15 gm Q15M PRN BUCCAL DECREASED GLUCOSE; Start 05/09/19 at 17:00 Hydralazine HCl (Apresoline) 100 mg Q8 PO Last administered on 05/14/19at 21:10; Admin Dose 100 MG; Start 05/10/19 at 14:00 Atorvastatin Calcium (Lipitor) 80 mg HS NGT Last administered on 05/14/19 21:09; Admin Dose 80 MG; Start 05/11/19 at 21:00 Insulin Glargine (Lantus) 10 units DAILY@2000 SC Last administered on 05/14/19at 20:54; Admin Dose 10 UNITS; Start 05/11/19 at 20:00 Nicardipine HCl 50 mg/Sodium Chloride 500 ml @ 0 mls/hr TITRATE IV Last ad ministered on 05/15/19at 12:02; Admin Dose 150 MLS/HR; Start 05/13/19 at 12:00 Lorazepam (Ativan) 2 mg Q6H PRN IV agitation; Start 05/13/19 at 12:00 Famotidine (Pepcid) 20 mg Q12 PO Last administered on 05/15/19at 11:57; Admin Dose 20 MG; Start 05/13/19 at 21:00 IV Flush (NS 10 ml) 10 ml PRN PRN IV IV PROTOCOL; Start 05/13/19 at 14:00 Metoprolol Tartrate (Lopressor) 200 mg BID NGT Last administered on 05/15/19at 11:57; Admin Dose 200 MG; Start 05/14/19 at 09:15 Lisinopril (Zestril) 40 mg BID GTB Last administered on 05/15/19 11:56; Admin Dose 40 MG; Start 05/15/19 at 09:00 Nifedipine (Procardia) 10 mg Q6 PO Last administered on 05/15/19 11:56; Admin Dose 10 MG; Start 05/15/19 at 08:30 ROHIT CHAWLA NP May 15, 2019 12:48
[2019-05-15] MEDS: ATORVASTATIN 80 MG TAB NGT SCH (20:29)
[2019-05-15] MEDS: INSULIN GLARGINE [LANTus] (100 UNITS/ML) SYG SC SCH (21:24)
[2019-05-16] VITALS (87 sets, daily range): BP systolic 125–173; BP diastolic 77–106; PULSE 53–75; RESP 16–38
[2019-05-16] MEDS: NIFEdipine 10 MG CAP PO SCH ×4 (00:37→17:16)
[2019-05-16] MEDS: INSULIN ASPART [NOVOLOG] 3 ML PEN SC SCH ×6 (01:07→21:00)
[2019-05-16] MEDS: niCARdipine 50 MG in SOD CHLORIDE 0.9% 480 ML IV SCH ×5 (01:52→22:50)
[2019-05-16] MEDS ORDERED: POTASSIUM CHLORIDE 20 MEQ POWDER FOR ORAL SOLN GTB ONE (08:00)
--- NOTE | 2019-05-16 08:18 | PN ---
DATE: 05/16/2019 SUBJECTIVE: The patient is in serious but stable condition. The patient remains on Cardene drip. N o other events noted. The patient is able to follow some simple commands. OBJECTIVE: VITAL SIGNS: Blood pressure is 159/93, respirations 32, pulse 67, temperature 98.6. HEENT: Head is normocephalic. NECK: Supple. HEART: Regular rate. LUNGS: Show diminished breath sounds at the base. ABDOMEN: Soft, nontender to palpation without rebound or guarding. EXTREMITIES: Negative for clubbing, cyanosis, no edema. DERMATOLOGIC: No rashes. MUSCULOSKELETAL: No joint effusion. NEUROLOGIC: No change in exam. MEDICATIONS: Have been reviewed. LABORATORY DATA: Has been reviewed. IMAGING STUDIES: Have been reviewed. ASSESSMENT AND PLAN: 1. Nonoliguric acute kidney injury with previous baseline creatinine of 0.72 mg/dL. Etiology of acu te kidney injury is secondary to vancomycin nephrotoxicity, possible contrast associated nephrotoxici ty and hemodynamics. The patient's renal function has overall improved. The patient's creatinine is fluctuating. Will continue to monitor closely. Continue current medical management. Continue supp ortive care, renally dose all meds. 2. Volume overload. The patient is status post Lasix x1. Continue to monitor and give intermittent diuretics as needed. Monitor electrolytes closely. 3. Hypokalemia. We will replete with potassium chloride. 4. Mineral bone disorder, monitor calcium and phosphorus levels. 5. Acute encephalopathy secondary to acute cerebrovascular accident. The patient's MRI shows multip le infarcts. Etiology is concerning for possible cardioembolic event. Continue to monitor. Follow up with neurology and neurosurgery. 6. Hypertensive urgency. The patient's blood pressure remains elevated. Remains on Cardene drip. Continue current blood pressure regimen. Will add Aldactone. Monitor closely. 7. Respiratory failure. The patient self-extubated. Continue to monitor. 8. History of cerebrovascular accident with frontal hematoma. Continue medical management. 9. Tachyarrhythmia. Continue to monitor. 10. Systemic inflammatory response syndrome. Continue to monitor. 11. Hypernatremia. Will continue to monitor closely. The patient may need to be starting on hypotonic fluid. We will continue to monitor closely. Dictated By: AMELIA NUÑEZ/ALISHA Conf#: [id number] DID#: [id number] CC: DAMIEN CHOUDHARY;*EndCC*
[2019-05-16] MEDS: METOPROLOL 100 MG TAB NGT SCH ×2 (08:46→20:10)
[2019-05-16] MEDS: SPIRONOLACTONE 25 MG TAB NGT SCH (08:47)
[2019-05-16] MEDS: FAMOTIDINE 20 MG TAB PO SCH ×2 (08:47→20:09)
[2019-05-16] MEDS: LISINOPRIL 20 MG TAB GTB SCH ×2 (08:47→20:09)
--- NOTE | 2019-05-16 09:34 | CONS ---
Assessment/Plan Assessment/Plan Assessment/Plan (Daily) Assessment and recommendations; 1. Patient admitted with intracranial hemorrhage likely hypertensive in etiology. 2. Status post self extubation with stable hemodynamics and respiratory status. 3. History with history of severe hypertension. Patient still requiring nicardipine drip. 4. Mild anemia. 5. History of diabetes. 6. Left upper extremity swelling, need to rule out DVT. Continue current supportive care. Obtain venous ultrasound of left upper extremity. Consultation Date/Type/Reason Admit Date/Time May 08, 2019 at 23:21 Initial Consult Date 05/10/19 Type of Consult Pulmonary/critical care Patient is a 39-year-old lady who came into the hospital with complaints of nausea vomiting going on for the last 2 days with headache. Upon evaluation patient was extremely hypertensive then developed respiratory failure requiring intubation. Emergent CT imaging of the head was done which is showing intracranial hemorrhage. Patient has remained completely unresponsive. Was started on propofol drip for tachypnea. Past medical history; 1. Hypertension. Medications; reviewed. Allergies; none. Social history, family history, occupational history not available. Review of system; unable to be obtained. General exam; young female, orally intubated, sedated, currently in no distress. Requesting Provider: DAMIEN CHOUDHARY Date/Time of Note DATE: 05/16/19 TIME: 09:31 24 HR Interval Summary Free Text/Dictation Patient's condition is stable. She self extubated 2 days ago with stable hemodynamics and respiratory status. Patient however still encephalopathic and despite being awake she does not follow any commands. General exam; young woman, awake, currently in no distress. Exam/Review of Systems Exam Vitals Vital Signs Date Temp Pulse Resp B/P (MAP) Pulse Ox O2 O2 Flow FiO2 Time Delivery Rate 05/16/19 68 34 158/89 97 08:15 (112) 05/16/19 2.0 08:00 05/16/19 98.0 Nasal 08:00 Cannula 05/15/19 30 01:11 Intake and Output 05/15/19 05/15/19 05/16/19 1515:00 23:00 07:00 IntakeIntake Total 1180 ml 1180 ml 620 ml OutputOutput Total 450 ml 465 ml 360 ml BalanceBalance 730 ml 715 ml 260 ml Exam H ENT exam; supple neck, no JVD. No lymphadenopathy. Midline trachea. No thyromegaly. Patient has good dentition. No neck masses. There is bilateral subconjunctival edema as well as conjunctival ecchymosis. Chest exam; diminished but clear breath sounds. S1-S2 audible, no murmurs. Regular rhythm. Abdomen exam; soft, protuberant. Nontender. No organomegaly. Bowel sounds audible. Extremity exam; there is a PICC line in the left upper extremity with mild induration around left arm. [employer] TE[employer]ER exam; patient awake but does not follow commands. Results Result Diagram: 05/16/19 0505 05/16/19 0505 Results 24hrs Laboratory Tests Test 05/15/19 12:12 05/15/19 17:08 05/15/19 20:38 05/16/19 01:05 Bedside Glucose 134 148 166 165 Test 05/16/19 05:00 05/16/19 05:05 05/16/19 05:06 05/16/19 08:52 Blood Gas Blood arterial Specimen Source Arterial Blood 05/16/2019 4:45:3 Date Drawn 0 AM Arterial Blood pH 7.416 (Temp corrected) Arterial Blood 31.1 L pCO2 (Temp correct) Arterial Blood 75.8 L pO2 (Temp corrected) Arterial Blood 19.5 L HCO3 Arterial Blood -3.7 L Base Excess Arterial Blood 95.3 Oxygen Saturation Kiran Test ACCEPTAB Arterial Blood Left Radial Gas Puncture Site Arterial 0.3 Blood Carboxyhemo globin Arterial Blood 0.3 Methemoglobin Blood Gas A-a O2 101.6 H Differential Oxyhemoglobin 94.7 Percent Blood Gas 37.0 Temperature Blood Gas NASAL CANNULA Modality FiO2 30.0 Blood Gas LW Notified Whom Blood Gas 05/16/2019 4:56:3 Notified Time 1 AM Lactic Acid Level 0.7 White Blood Count 7.4 # Red Blood Count 4.14 L Hemoglobin 11.9 L Hematocrit 38.0 Mean Corpuscular 91.8 Volume Mean Corpuscular 28.7 L Hemoglobin Mean Corpuscular 31.3 L Hemoglobin Concen t Red Cell 14.1 Distribution Width Platelet Count 215 # Mean Platelet 11.6 H Volume Immature 0.500 H Granulocytes % Neutrophils % 65.1 Lymphocytes % 21.5 Monocytes % 9.5 Eosinophils % 3.1 Basophils % 0.3 Nucleated Red 0.0 Blood Cells % Immature 0.040 H Granulocytes # Neutrophils # 4.8 Lymphocytes # 1.6 Monocytes # 0.7 Eosinophils # 0.2 Basophils # 0.0 Nucleated Red 0.0 Blood Cells # Sodium Level 145 H Potassium Level 3.1 L Chloride Level 122 H Carbon Dioxide 19 L Level Anion Gap 4 L Blood Urea 22 H Nitrogen Creatinine 0.66 Est Glomerular > 60 Filtrat Rate mL/min Glucose Level 145 Calcium Level 7.1 L Bedside Glucose 119 157 Medications Medication Current Medications IV Flush (NS 3 ml) 3 ml PER PROTOCOL IV ; Start 05/09/19 at 00:00 Ondansetron HCl (Zofran Inj) 4 mg Q6H PRN IV NAUSEA/VOMITING; Start 05/09/19 at 00:00 Acetaminophen (Tylenol Tab) 650 mg Q6H PRN PO .PAIN 1-3 OR TEMP; Start 05/09/19 at 00:00 Acetaminophen/ Hydrocodone Bitart ([place] (5/325)) 1 tab Q6H PRN PO .MOD PAIN 4- 6; Start 05/09/19 at 00:00 Morphine Sulfate (morphine) 2 mg Q4H PRN IV .SEVERE PAIN 7-10 Last administered on 05/13/19at 15:41; Admin Dose 2 MG; Start 05/09/19 at 00:00 Docusate Sodium (Colace) 100 mg Q12H PRN PO .CONSTIPATION; Start 05/09/19 at 00:00 Magnesium Hydroxide (Milk Of Mag) 30 ml DAILY PRN PO .CONSTIPATION; Start 05/09/19 at 00:00 Hydralazine HCl (Apresoline) 10 mg Q6H PRN IV ELEVATED BLOOD PRESSURE Last administered on 05/15/19at 11:08; Admin Dose 10 MG; Start 05/09/19 at 00:00 Nitroglycerin (Nitroglycerin (Sl Tab) 0.4 Mg) 1 tab Q5M PRN SL ANGINA; Start 05/09/19 at 00:00 Labetalol HCl (Labetalol) 10 mg Q6H PRN IV sys bp > 160 Last administered on 05/15/19at 05:24; Admin Dose 10 MG; Start 05/09/19 at 05:00 Insulin Aspart (Novolog Insulin Pen) NOVOLOG *MODERATE* ALGORI... Q4 SC Last administered on 05/16/19at 08:54; Admin Dose 2 UNIT; Start 05/09/19 at 18:00 Miscellaneous Information 1 ea NOTE XX ; Start 05/09/19 at 17:00 Glucose (Glutose) 15 gm Q15M PRN PO DECREASED GLUCOSE; Start 05/09/19 at 17:00 Glucose (Glutose) 22.5 gm Q15M PRN PO DECREASED GLUCOSE; Start 05/09/19 at 17:00 Dextrose (D50w Syringe) 25 ml Q15M PRN IV DECREASED GLUCOSE; Start 05/09/19 at 17:00 Dextrose (D50w Syringe) 50 ml Q15M PRN IV DECREASED GLUCOSE; Start 05/09/19 at 17:00 Glucagon (Glucagen) 1 mg Q15M PRN IM DECREASED GLUCOSE; Start 05/09/19 at 17:00 Glucose (Glutose) 15 gm Q15M PRN BUCCAL DECREASED GLUCOSE; Start 05/09/19 at 17:00 Hydralazine HCl (Apresoline) 100 mg Q8 PO Last administered on 05/16/19at 05:15; Admin Dose 100 MG; Start 05/10/19 at 14:00 Atorvastatin Calcium (Lipitor) 80 mg HS NGT Last administered on 05/15/19at 20:29; Admin Dose 80 MG; Start 05/11/19 at 21:00 Insulin Glargine (Lantus) 10 units DAILY@2000 SC Last administered on 05/15/19at 21:24; Admin Dose 10 UNITS; Start 05/11/19 at 20:00 Nicardipine HCl 50 mg/Sodium Chloride 500 ml @ 0 mls/hr TITRATE IV Last administered on 05/16/19at 07:05; Admin Dose 100 MLS/HR; Start 05/13/19 at 12:00 Lorazepam (Ativan) 2 mg Q6H PRN IV agitation; Start 05/13/19 at 12:00 Famotidine (Pepcid) 20 mg Q12 PO Last administered on 05/16/19at 08:47; Admin Dose 20 MG; Start 05/13/19 at 21:00 IV Flush (NS 10 ml) 10 ml PRN PRN IV IV PROTOCOL; Start 05/13/19 at 14:00 Metoprolol Tartrate (Lopressor) 200 mg BID NGT Last administered on 05/16/19at 08:46; Admin Dose 200 MG; Start 05/14/19 at 09:15 Lisinopril (Zestril) 40 mg BID GTB Last administered on 05/16/19at 08:47; Admin Dose 40 MG; Start 05/15/19 at 09:00 Nifedipine (Procardia) 10 mg Q6 PO Last administered on 05/16/19 05:15; Admin Dose 10 MG; Start 05/15/19 at 08:30 Spironolactone (Aldactone) 25 mg DAILY NGT Last administered on 05/16/19 08:47; Admin Dose 25 MG; Start 05/16/19 at 09:00 JAYSON WASSERMAN May 16, 2019 09:34
--- NOTE | 2019-05-16 10:55 | PN ---
Date/Time of Note Date/Time of Note DATE: 05/16/19 TIME: 10:30 Assessment/Plan VTE Prophylaxis Risk score (from Ns)>0 risk: 8 SCD applied (from [facility] [place] Yes Pharmacological prophylaxis: NA/contraindicated Pharm contraindication: bleeding Lines/Catheters [facility]from [facility] Mid Line Urinary Cath still in place: Yes Reason Cath still needed: urinary retention Assessment/Plan Hospital Course S: Patient still on Cardene drip, awaiting speech eval later today, tolerating NG tube feeds. O: VS - see below PE: Gen: Morbidly obese woman lying supine in bed, lethargic but opening eyes Eyes: Slightly injected conjunctivae. Normal pupils ENT: Normal External Ears, Nose and Mouth. Moist mucous membranes. Neck: No meningismus. No lymphadenopathy. Resp: Clear to auscultation bilaterally. Cardio: Regular rate and rhythm, no murmurs appreciated. Abd: Soft, obese, nondistended, normal bowel sounds Ext: No lower extremity edema bilaterally Neuro: Eyes open spontaneously, tracking. Moving L arm and L leg spontaneously. Moves R leg and R arm to pain. Not following commands. Assessment/Plan: 39-year-old morbidly obese woman with history of HTN who comes in with decreased p.o. intake, lethargy preceded by delirium and nausea and vomiting. 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 #Encephalopathy-slightly improving as patient answers yes/no questions now, MRI brain showed several new and old infarcts concerning for central embolic source. There is a small frontal bleed which may be hemorrhagic infarct- TTE done without evidence of vegetations or thrombus- HIV negative - No concern for infectious meningitis based on LP, patient presently off antibiotics. - Dr. Laurent following. - Limit sedation as much as possible. #GARDENIA- Likely due to iatrogenic vancomycin toxicity- Now resolved. - Dr. Haas following, monitor for now #Respiratory failure- Intubated due to poor mental status- Self-extubated 6/16 AM - Currently protecting airway. Monitor cautiously in ICU versus tele bed near nursing station. # Hypertension: Blood pressure still on the high normal range despite 5 p.o. blood pressure medicines and IV Cardene drip still running - Continue current medications - still requiring nicardipene gtt, continue to titrate up PO meds as needed # DVT prophylaxis: SCDs 50 minutes critical care time spent on this patient today. Result Diagram: 05/16/19 0505 05/16/19 0505 Results 24hrs Laboratory Tests Test 05/15/19 12:12 05/15/19 17:08 05/15/19 20:38 05/16/19 01:05 Bedside Glucose 134 148 166 165 Test 05/16/19 05:00 05/16/19 05:05 05/16/19 05:06 05/16/19 08:52 Blood Gas Blood arterial Specimen Source Arterial Blood 05/16/2019 4:45:3 Date Drawn 0 AM Arterial Blood pH 7.416 (Temp corrected) Arterial Blood 31.1 L pCO2 (Temp correct) Arterial Blood 75.8 L pO2 (Temp corrected) Arterial Blood 19.5 L HCO3 Arterial Blood -3.7 L Base Excess Arterial Blood 95.3 Oxygen Saturation Krian Test ACCEPTAB Arterial Blood Left Radial Gas Puncture Site Arterial 0.3 Blood Carboxyhemo globin Arterial Blood 0.3 Methemoglobin Blood Gas A-a O2 101.6 H Differential Oxyhemoglobin 94.7 Percent Blood Gas 37.0 Temperature Blood Gas NASAL CANNULA Modality FiO2 30.0 Blood Gas LW Notified Whom Blood Gas 05/16/2019 4:56:3 Notified Time 1 AM Lactic Acid Level 0.7 White Blood Count 7.4 # Red Blood Count 4.14 L Hemoglobin 11.9 L Hematocrit 38.0 Mean Corpuscular 91.8 Volume Mean Corpuscular 28.7 L Hemoglobin Mean Corpuscular 31.3 L Hemoglobin Concen t Red Cell 14.1 Distribution Width Platelet Count 215 # Mean Platelet 11.6 H Volume Immature 0.500 H Granulocytes % Neutrophils % 65.1 Lymphocytes % 21.5 Monocytes % 9.5 Eosinophils % 3.1 Basophils % 0.3 Nucleated Red 0.0 Blood Cells % Immature 0.040 H Granulocytes # Neutrophils # 4.8 Lymphocytes # 1.6 Monocytes # 0.7 Eosinophils # 0.2 Basophils # 0.0 Nucleated Red 0.0 Blood Cells # Sodium Level 145 H Potassium Level 3.1 L Chloride Level 122 H Carbon Dioxide 19 L Level Anion Gap 4 L Blood Urea 22 H Nitrogen Creatinine 0.66 Est Glomerular > 60 Filtrat Rate mL/min Glucose Level 145 Calcium Level 7.1 L Bedside Glucose 119 157 Exam/Review of Systems Exam Vitals Vital Signs Date Temp Pulse Resp B/P (MAP) Pulse Ox O2 O2 Flow FiO2 Time Delivery Rate 05/16/19 68 34 158/89 97 08:15 (112) 05/16/19 2.0 08:00 05/16/19 98.0 Nasal 08:00 Cannula 05/15/19 30 01:11 Intake and Output 05/15/19 05/15/19 05/16/19 1515:00 23:00 07:00 IntakeIntake Total 1180 ml 1180 ml 620 ml OutputOutput Total 450 ml 465 ml 360 ml BalanceBalance 730 ml 715 ml 260 ml Results Results 24hrs Laboratory Tests Test 05/15/19 12:12 05/15/19 17:08 05/15/19 20:38 05/16/19 01:05 Bedside Glucose 134 148 166 165 Test 05/16/19 05:00 05/16/19 05:05 05/16/19 05:06 05/16/19 08:52 Blood Gas Blood arterial Specimen Source Arterial Blood 05/16/2019 4:45:3 Date Drawn 0 AM Arterial Blood pH 7.416 (Temp corrected) Arterial Blood 31.1 L pCO2 (Temp correct) Arterial Blood 75.8 L pO2 (Temp corrected) Arterial Blood 19.5 L HCO3 Arterial Blood -3.7 L Base Excess Arterial Blood 95.3 Oxygen Saturation Kiran Test ACCEPTAB Arterial Blood Left Radial Gas Puncture Site Arterial 0.3 Blood Carboxyhemo globin Arterial Blood 0.3 Methemoglobin Blood Gas A-a O2 101.6 H Differential Oxyhemoglobin 94.7 Percent Blood Gas 37.0 Temperature Blood Gas NASAL CANNULA Modality FiO2 30.0 Blood Gas LW Notified Whom Blood Gas 05/16/2019 4:56:3 Notified Time 1 AM Lactic Acid Level 0.7 White Blood Count 7.4 # Red Blood Count 4.14 L Hemoglobin 11.9 L Hematocrit 38.0 Mean Corpuscular 91.8 Volume Mean Corpuscular 28.7 L Hemoglobin Mean Corpuscular 31.3 L Hemoglobin Concen t Red Cell 14.1 Distribution Width Platelet Count 215 # Mean Platelet 11.6 H Volume Immature 0.500 H Granulocytes % Neutrophils % 65.1 Lymphocytes % 21.5 Monocytes % 9.5 Eosinophils % 3.1 Basophils % 0.3 Nucleated Red 0.0 Blood Cells % Immature 0.040 H Granulocytes # Neutrophils # 4.8 Lymphocytes # 1.6 Monocytes # 0.7 Eosinophils # 0.2 Basophils # 0.0 Nucleated Red 0.0 Blood Cells # Sodium Level 145 H Potassium Level 3.1 L Chloride Level 122 H Carbon Dioxide 19 L Level Anion Gap 4 L Blood Urea 22 H Nitrogen Creatinine 0.66 Est Glomerular > 60 Filtrat Rate mL/min Glucose Level 145 Calcium Level 7.1 L Bedside Glucose 119 157 Medications Medication Current Medications IV Flush (NS 3 ml) 3 ml PER PROTOCOL IV ; Start 05/09/19 at 00:00 Ondansetron HCl (Zofran Inj) 4 mg Q6H PRN IV NAUSEA/VOMITING; Start 05/09/19 at 00:00 Acetaminophen (Tylenol Tab) 650 mg Q6H PRN PO .PAIN 1-3 OR TEMP; Start 05/09/19 at 00:00 Acetaminophen/ Hydrocodone Bitart ([place] (5/325)) 1 tab Q6H PRN PO .MOD PAIN 4- 6; Start 05/09/19 at 00:00 Morphine Sulfate (morphine) 2 mg Q4H PRN IV .SEVERE PAIN 7-10 Last administered on 05/13/19at 15:41; Admin Dose 2 MG; Start 05/09/19 at 00:00 Docusate Sodium (Colace) 100 mg Q12H PRN PO .CONSTIPATION; Start 05/09/19 at 00:00 Magnesium Hydroxide (Milk Of Mag) 30 ml DAILY PRN PO .CONSTIPATION; Start 05/09/19 at 00:00 Hydralazine HCl (Apresoline) 10 mg Q6H PRN IV ELEVATED BLOOD PRESSURE Last administered on 05/15/19at 11:08; Admin Dose 10 MG; Start 05/09/19 at 00:00 Nitroglycerin (Nitroglycerin (Sl Tab) 0.4 Mg) 1 tab Q5M PRN SL ANGINA; Start 05/09/19 at 00:00 Labetalol HCl (Labetalol) 10 mg Q6H PRN IV sys bp > 160 Last administered on 05/15/19at 05:24; Admin Dose 10 MG; Start 05/09/19 at 05:00 Insulin Aspart (Novolog Insulin Pen) NOVOLOG *MODERATE* ALGORI... Q4 SC Last administered on 05/16/19at 08:54; Admin Dose 2 UNIT; Start 05/09/19 at 18:00 Miscellaneous Information 1 ea NOTE XX ; Start 05/09/19 at 17:00 Glucose (Glutose) 15 gm Q15M PRN PO DECREASED GLUCOSE; Start 05/09/19 at 17:00 Glucose (Glutose) 22.5 gm Q15M PRN PO DECREASED GLUCOSE; Start 05/09/19 at 17:00 Dextrose (D50w Syringe) 25 ml Q15M PRN IV DECREASED GLUCOSE; Start 05/09/19 at 17:00 Dextrose (D50w Syringe) 50 ml Q15M PRN IV DECREASED GLUCOSE; Start 05/09/19 at 17:00 Glucagon (Glucagen) 1 mg Q15M PRN IM DECREASED GLUCOSE; Start 05/09/19 at 17:00 Glucose (Glutose) 15 gm Q15M PRN BUCCAL DECREASED GLUCOSE; Start 05/09/19 at 17:00 Hydralazine HCl (Apresoline) 100 mg Q8 PO Last administered on 05/16/19at 05:15; Admin Dose 100 MG; Start 05/10/19 at 14:00 Atorvastatin Calcium (Lipitor) 80 mg HS NGT Last administered on 05/15/19at 20:29; Admin Dose 80 MG; Start 05/11/19 at 21:00 Insulin Glargine (Lantus) 10 units DAILY@2000 SC Last administered on 05/15/19at 21:24; Admin Dose 10 UNITS; Start 05/11/19 at 20:00 Nicardipine HCl 50 mg/Sodium Chloride 500 ml @ 0 mls/hr TITRATE IV Last administered on 05/16/19at 07:05; Admin Dose 100 MLS/HR; Start 05/13/19 at 12:00 Lorazepam (Ativan) 2 mg Q6H PRN IV agitation; Start 05/13/19 at 12:00 Famotidine (Pepcid) 20 mg Q12 PO Last administered on 05/16/19at 08:47; Admin Dose 20 MG; Start 05/13/19 at 21:00 IV Flush (NS 10 ml) 10 ml PRN PRN IV IV PROTOCOL; Start 05/13/19 at 14:00 Metoprolol Tartrate (Lopressor) 200 mg BID NGT Last administered on 05/16/19at 08:46; Admin Dose 200 MG; Start 05/14/19 at 09:15 Lisinopril (Zestril) 40 mg BID GTB Last administered on 05/16/19at 08:47; Admin Dose 40 MG; Start 05/15/19 at 09:00 Nifedipine (Procardia) 10 mg Q6 PO Last administered on 05/16/19at 05:15; Admin Dose 10 MG; Start 05/15/19 at 08:30 Spironolactone (Aldactone) 25 mg DAILY NGT Last administered on 05/16/19at 08:47; Admin Dose 25 MG; Start 05/16/19 at 09:00 DAMIEN CHOUDHARY May 16, 2019 10:40
--- NOTE | 2019-05-16 14:38 | CONS ---
Assessment/Plan Assessment/Plan Assessment/Plan (Recall) 39 F c/ reported Hx of DM2, who presents for evaluation of multiple complaints, including GI Sx...and eventual ams, for which neurology is consulted. 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 The clinical picture was initially concerning for meningoencephalitis..CSF evaluation is inconsistent w/ infection...the erythrocytosis possibly due to a traumatic tap.. Head CT was notable for a left frontal hyperdensity, likely hemorrhagic t ransformation of an above referenced focus of acute ischemia is the context of severe hypertension.. CTA head and neck is negative for multifocal stenoses, which might otherwise suggests vasculitis, etc. TTE is unrevealing EEG was without epileptiform activity Ammonia wnl, HIV/RPR neg, ESR wnl Hypercoagulability panel is in progress, so far negative.. P Start asa for secondary stroke prevention Consider SOFIA for further characterization Continued BP control to goal normotension PT/OT/ST when able Continue to hold all sedating medications where possible Other management and supportive care per primary Will follow clinically Consultation Date/Type/Reason Admit Date/Time May 08, 2019 at 23:21 Type of Consult Neurology Reason for Consultation ams Requesting Provider: DAMIEN CHOUDHARY Date/Time of Note DATE: 05/16/19 TIME: 14:33 24 HR Interval Summary Free Text/Dictation Continues icu care Exam/Review of Systems Exam Vitals Vital Signs Date Temp Pulse Resp B/P (MAP) Pulse Ox O2 O2 Flow FiO2 Time Delivery Rate 05/16/19 59 23 146/105 96 12:45 (119) 05/16/19 97.5 12:00 05/16/19 Nasal 11:00 Cannula 05/16/19 2.0 08:00 05/15/19 30 01:11 Intake and Output 05/15/19 05/15/19 05/16/19 1515:00 23:00 07:00 IntakeIntake Total 1180 ml 1180 ml 620 ml OutputOutput Total 450 ml 465 ml 360 ml BalanceBalance 730 ml 715 ml 260 ml Exam PE: Gen Appearance: No Apparent Distress HEENT: Normocephalic Cardiovascular: Regular rate Abdomen: Soft Extremities: Dry, edematous NE: The patient was alert, though sparsely verbal. Able to say "Czech" when asked is she speaks Czech or Japanese.. Able to nod appropriately to simple questions.. Cranial nerve examination was limited by mental status. Pupils were equal and reactive to light. There was no afferent pupillary defect. Funduscopic exam ination was limited. Face was grossly symmetric, w/ present corneal and cough reflexes. Tone was normal. Muscle bulk was normal. I did not see fasciculations. The patient was plegic on the right. Coordination and gait testing was limited by mental status. Results Result Diagram: 05/16/19 0505 05/16/19 0505 Results 24hrs Laboratory Tests Test 05/15/19 17:08 05/15/19 20:38 05/16/19 01:05 05/16/19 05:00 Bedside Glucose 148 166 165 Blood Gas Blood arterial Specimen Source Arterial Blood 05/16/2019 4:45:3 Date Drawn 0 AM Arterial Blood pH 7.416 (Temp corrected) Arterial Blood 31.1 L pCO2 (Temp correct) Arterial Blood 75.8 L pO2 (Temp corrected) Arterial Blood 19.5 L HCO3 Arterial Blood -3.7 L Base Excess Arterial Blood 95.3 Oxygen Saturation Kiran Test ACCEPTAB Arterial Blood Left Radial Gas Puncture Site Arterial 0.3 Blood Carboxyhemo globin Arterial Blood 0.3 Methemoglobin Blood Gas A-a O2 101.6 H Differential Oxyhemoglobin 94.7 Percent Blood Gas 37.0 Temperature Blood Gas NASAL CANNULA Modality FiO2 30.0 Blood Gas LW Notified Whom Blood Gas 05/16/2019 4:56:3 Notified Time 1 AM Lactic Acid Level 0.7 Test 05/16/19 05:05 05/16/19 05:06 05/16/19 08:52 05/16/19 12:11 White Blood Count 7.4 # Red Blood Count 4.14 L Hemoglobin 11.9 L Hematocrit 38.0 Mean Corpuscular 91.8 Volume Mean Corpuscular 28.7 L Hemoglobin Mean Corpuscular 31.3 L Hemoglobin Concen t Red Cell 14.1 Distribution Width Platelet Count 215 # Mean Platelet 11.6 H Volume Immature 0.500 H Granulocytes % Neutrophils % 65.1 Lymphocytes % 21.5 Monocytes % 9.5 Eosinophils % 3.1 Basophils % 0.3 Nucleated Red 0.0 Blood Cells % Immature 0.040 H Granulocytes # Neutrophils # 4.8 Lymphocytes # 1.6 Monocytes # 0.7 Eosinophils # 0.2 Basophils # 0.0 Nucleated Red 0.0 Blood Cells # Sodium Level 145 H Potassium Level 3.1 L Chloride Level 122 H Carbon Dioxide 19 L Level Anion Gap 4 L Blood Urea 22 H Nitrogen Creatinine 0.66 Est Glomerular > 60 Filtrat Rate mL/min Glucose Level 145 Calcium Level 7.1 L Bedside Glucose 119 157 162 Medications Medication Current Medications IV Flush (NS 3 ml) 3 ml PER PROTOCOL IV ; Start 05/09/19 at 00:00 Ondansetron HCl (Zofran Inj) 4 mg Q6H PRN IV NAUSEA/VOMITING; Start 05/09/19 at 00:00 Acetaminophen (Tylenol Tab) 650 mg Q6H PRN PO .PAIN 1-3 OR TEMP; Start 05/09/19 at 00:00 Acetaminophen/ Hydrocodone Bitart ([place] (5/325)) 1 tab Q6H PRN PO .MOD PAIN 4- 6; Start 05/09/19 at 00:00 Morphine Sulfate (morphine) 2 mg Q4H PRN IV .SEVERE PAIN 7-10 Last administered on 05/13/19at 15:41; Admin Dose 2 MG; Start 05/09/19 at 00:00 Docusate Sodium (Colace) 100 mg Q12H PRN PO .CONSTIPATION; Start 05/09/19 at 00:00 Magnesium Hydroxide (Milk Of Mag) 30 ml DAILY PRN PO .CONSTIPATION; Start 05/09/19 at 00:00 Hydralazine HCl (Apresoline) 10 mg Q6H PRN IV ELEVATED BLOOD PRESSURE Last administered on 05/15/19at 11:08; Admin Dose 10 MG; Start 05/09/19 at 00:00 Nitroglycerin (Nitroglycerin (Sl Tab) 0.4 Mg) 1 tab Q5M PRN SL ANGINA; Start 05/09/19 at 00:00 Labetalol HCl (Labetalol) 10 mg Q6H PRN IV sys bp > 160 Last administered on 05/15/19at 05:24; Admin Dose 10 MG; Start 05/09/19 at 05:00 Insulin Aspart (Novolog Insulin Pen) NOVOLOG *MODERATE* ALGORI... Q4 SC Last administered on 05/16/19at 12:13; Admin Dose 2 UNIT; Start 05/09/19 at 18:00 Miscellaneous Information 1 ea NOTE XX ; Start 05/09/19 at 17:00 Glucose (Glutose) 15 gm Q15M PRN PO DECREASED GLUCOSE; Start 05/09/19 at 17:00 Glucose (Glutose) 22.5 gm Q15M PRN PO DECREASED GLUCOSE; Start 05/09/19 at 17:00 Dextrose (D50w Syringe) 25 ml Q15M PRN IV DECREASED GLUCOSE; Start 05/09/19 at 17:00 Dextrose (D50w Syringe) 50 ml Q15M PRN IV DECREASED GLUCOSE; Start 05/09/19 at 17:00 Glucagon (Glucagen) 1 mg Q15M PRN IM DECREASED GLUCOSE; Start 05/09/19 at 17:00 Glucose (Glutose) 15 gm Q15M PRN BUCCAL DECREASED GLUCOSE; Start 05/09/19 at 17:00 Hydralazine HCl (Apresoline) 100 mg Q8 PO Last administered on 05/16/19at 14:20; Admin Dose 100 MG; Start 05/10/19 at 14:00 Atorvastatin Calcium (Lipitor) 80 mg HS NGT Last administered on 05/15/19at 20:29; Admin Dose 80 MG; Start 05/11/19 at 21:00 Insulin Glargine (Lantus) 10 units DAILY@2000 SC Last administered on 05/15/19at 21:24; Admin Dose 10 UNITS; Start 05/11/19 at 20:00 Nicardipine HCl 50 mg/Sodium Chloride 500 ml @ 0 mls/hr TITRATE IV Last administered on 05/16/19at 12:17; Admin Dose 100 MLS/HR; Start 05/13/19 at 12:00 Lorazepam (Ativan) 2 mg Q6H PRN IV agitation; Start 05/13/19 at 12:00 Famotidine (Pepcid) 20 mg Q12 PO Last administered on 05/16/19at 08:47; Admin Dose 20 MG; Start 05/13/19 at 21:00 IV Flush (NS 10 ml) 10 ml PRN PRN IV IV PROTOCOL; Start 05/13/19 at 14:00 Metoprolol Tartrate (Lopressor) 200 mg BID NGT Last administered on 05/16/19at 08:46; Admin Dose 200 MG; Start 05/14/19 at 09:15 Lisinopril (Zestril) 40 mg BID GTB Last administered on 05/16/19at 08:47; Admin Dose 40 MG; Start 05/15/19 at 09:00 Nifedipine (Procardia) 10 mg Q6 PO Last administered on 05/16/19at 12:09; Admin Dose 10 MG; Start 05/15/19 at 08:30 Spironolactone (Aldactone) 25 mg DAILY NGT Last administered on 05/16/19at 08:47; Admin Dose 25 MG; Start 05/16/19 at 09:00 JOSÉ TORO May 16, 2019 14:38
--- NOTE | 2019-05-16 14:49 | CONS ---
Assessment/Plan Assessment/Plan Hospital Course (Demo Recall) No events overnight patient looks comfortable no fevers WBC 7.4 no shift no bands BUN 22 creatinine 0.66 Chest x-ray revealed no significant change Indwelling: NGT Bojorquez catheter PICC Physical examination: Morbidly obese well-developed middle-aged woman who is intubated sedated in no distress. Head atraumatic normocephalic sclera nonicteric unable to assess pupils as her pupils facing down. Bugle mucosa dry. Neck is supple chest rise symmetrical breath sounds diminished bases. Heart: S1-S2. Abdomen obese soft bowel tones present. Extremities without cyanosis. Assessment: 1. Acute encephalopathy 2 to acute infarcts, resolving 2. Acute respiratory failure, status post self extubated 3. Morbid obesity 4. Acute kidney insufficiency 5. Hypertension Plan: Stable on nasal cannula, off abx, will reculture as needed, follow neurology and pulmonary recommendations, aspiration precautions Consultation Date/Type/Reason Admit Date/Time May 08, 2019 at 23:21 Initial Consult Date 05/10/19 Type of Consult id Requesting Provider: DAMIEN CHOUDHARY Date/Time of Note DATE: 05/16/19 TIME: 14:48 Exam/Review of Systems Exam Vitals Vital Signs Date Temp Pulse Resp B/P (MAP) Pulse Ox O2 O2 Flow FiO2 Time Delivery Rate 05/16/19 61 38 132/89 96 14:30 (103) 05/16/19 97.5 12:00 05/16/19 Nasal 11:00 Cannula 05/16/19 2.0 08:00 05/15/19 30 01:11 Intake and Output 05/15/19 05/15/19 05/16/19 1515:00 23:00 07:00 IntakeIntake Total 1180 ml 1180 ml 620 ml OutputOutput Total 450 ml 465 ml 360 ml BalanceBalance 730 ml 715 ml 260 ml Results Result Diagram: 05/16/19 0505 05/16/19 0505 Results 24hrs Laboratory Tests Test 05/15/19 17:08 05/15/19 20:38 05/16/19 01:05 05/16/19 05:00 Bedside Glucose 148 166 165 Blood Gas Blood arterial Specimen Source Arterial Blood 05/16/2019 4:45:3 Date Drawn 0 AM Arterial Blood pH 7.416 (Temp corrected) Arterial Blood 31.1 L pCO2 (Temp correct) Arterial Blood 75.8 L pO2 (Temp corrected) Arterial Blood 19.5 L HCO3 Arterial Blood -3.7 L Base Excess Arterial Blood 95.3 Oxygen Saturation Kiran Test ACCEPTAB Arterial Blood Left Radial Gas Puncture Site Arterial 0.3 Blood Carboxyhemo globin Arterial Blood 0.3 Methemoglobin Blood Gas A-a O2 101.6 H Differential Oxyhemoglobin 94.7 Percent Blood Gas 37.0 Temperature Blood Gas NASAL CANNULA Modality FiO2 30.0 Blood Gas LW Notified Whom Blood Gas 05/16/2019 4:56:3 Notified Time 1 AM Lactic Acid Level 0.7 Test 05/16/19 05:05 05/16/19 05:06 05/16/19 08:52 05/16/19 12:11 White Blood Count 7.4 # Red Blood Count 4.14 L Hemoglobin 11.9 L Hematocrit 38.0 Mean Corpuscular 91.8 Volume Mean Corpuscular 28.7 L Hemoglobin Mean Corpuscular 31.3 L Hemoglobin Concen t Red Cell 14.1 Distribution Width Platelet Count 215 # Mean Platelet 11.6 H Volume Immature 0.500 H Granulocytes % Neutrophils % 65.1 Lymphocytes % 21.5 Monocytes % 9.5 Eosinophils % 3.1 Basophils % 0.3 Nucleated Red 0.0 Blood Cells % Immature 0.040 H Granulocytes # Neutrophils # 4.8 Lymphocytes # 1.6 Monocytes # 0.7 Eosinophils # 0.2 Basophils # 0.0 Nucleated Red 0.0 Blood Cells # Sodium Level 145 H Potassium Level 3.1 L Chloride Level 122 H Carbon Dioxide 19 L Level Anion Gap 4 L Blood Urea 22 H Nitrogen Creatinine 0.66 Est Glomerular > 60 Filtrat Rate mL/min Glucose Level 145 Calcium Level 7.1 L Bedside Glucose 119 157 162 Medications Medication Current Medications IV Flush (NS 3 ml) 3 ml PER PROTOCOL IV ; Start 05/09/19 at 00:00 Ondansetron HCl (Zofran Inj) 4 mg Q6H PRN IV NAUSEA/VOMITING; Start 05/09/19 at 00:00 Acetaminophen (Tylenol Tab) 650 mg Q6H PRN PO .PAIN 1-3 OR TEMP; Start 05/09/19 at 00:00 Acetaminophen/ Hydrocodone Bitart ([place] (5/325)) 1 tab Q6H PRN PO .MOD PAIN 4- 6; Start 05/09/19 at 00:00 Morphine Sulfate (morphine) 2 mg Q4H PRN IV .SEVERE PAIN 7-10 Last administered on 05/13/19at 15:41; Admin Dose 2 MG; Start 05/09/19 at 00:00 Docusate Sodium (Colace) 100 mg Q12H PRN PO .CONSTIPATION; Start 05/09/19 at 00:00 Magnesium Hydroxide (Milk Of Mag) 30 ml DAILY PRN PO .CONSTIPATION; Start 05/09/19 at 00:00 Hydralazine HCl (Apresoline) 10 mg Q6H PRN IV ELEVATED BLOOD PRESSURE Last administered on 05/15/19at 11:08; Admin Dose 10 MG; Start 05/09/19 at 00:00 Nitroglycerin (Nitroglycerin (Sl Tab) 0.4 Mg) 1 tab Q5M PRN SL ANGINA; Start 05/09/19 at 00:00 Labetalol HCl (Labetalol) 10 mg Q6H PRN IV sys bp > 160 Last administered on 05/15/19at 05:24; Admin Dose 10 MG; Start 05/09/19 at 05:00 Insulin Aspart (Novolog Insulin Pen) NOVOLOG *MODERATE* ALGORI... Q4 SC Last administered on 05/16/19at 12:13; Admin Dose 2 UNIT; Start 05/09/19 at 18:00 Miscellaneous Information 1 ea NOTE XX ; Start 05/09/19 at 17:00 Glucose (Glutose) 15 gm Q15M PRN PO DECREASED GLUCOSE; Start 05/09/19 at 17:00 Glucose (Glutose) 22.5 gm Q15M PRN PO DECREASED GLUCOSE; Start 05/09/19 at 17:00 Dextrose (D50w Syringe) 25 ml Q15M PRN IV DECREASED GLUCOSE; Start 05/09/19 at 17:00 Dextrose (D50w Syringe) 50 ml Q15M PRN IV DECREASED GLUCOSE; Start 05/09/19 at 17:00 Glucagon (Glucagen) 1 mg Q15M PRN IM DECREASED GLUCOSE; Start 05/09/19 at 17:00 Glucose (Glutose) 15 gm Q15M PRN BUCCAL DECREASED GLUCOSE; Start 05/09/19 at 17:00 Hydralazine HCl (Apresoline) 100 mg Q8 PO Last administered on 05/16/19at 14:20; Admin Dose 100 MG; Start 05/10/19 at 14:00 Atorvastatin Calcium (Lipitor) 80 mg HS NGT Last administered on 05/15/19at 20:29; Admin Dose 80 MG; Start 05/11/19 at 21:00 Insulin Glargine (Lantus) 10 units DAILY@2000 SC Last administered on 05/15/19at 21:24; Admin Dose 10 UNITS; Start 05/11/19 at 20:00 Nicardipine HCl 50 mg/Sodium Chloride 500 ml @ 0 mls/hr TITRATE IV Last administered on 05/16/19 12:17; Admin Dose 100 MLS/HR; Start 05/13/19 at 12:00 Lorazepam (Ativan) 2 mg Q6H PRN IV agitation; Start 05/13/19 at 12:00 Famotidine (Pepcid) 20 mg Q12 PO Last administered on 05/16/19at 08:47; Admin Dose 20 MG; Start 05/13/19 at 21:00 IV Flush (NS 10 ml) 10 ml PRN PRN IV IV PROTOCOL; Start 05/13/19 at 14:00 Metoprolol Tartrate (Lopressor) 200 mg BID NGT Last administered on 05/16/19at 08:46; Admin Dose 200 MG; Start 05/14/19 at 09:15 Lisinopril (Zestril) 40 mg BID GTB Last administered on 05/16/19 08:47; Admin Dose 40 MG; Start 05/15/19 at 09:00 Nifedipine (Procardia) 10 mg Q6 PO Last administered on 05/16/19at 12:09; Admin Dose 10 MG; Start 05/15/19 at 08:30 Spironolactone (Aldactone) 25 mg DAILY NGT Last administered on 05/16/19 08:47; Admin Dose 25 MG; Start 05/16/19 at 09:00 Aspirin (Aspirin) 81 mg DAILY NGT ; Start 05/16/19 at 15:00 ROHIT CHAWLA NP May 16, 2019 14:49
[2019-05-16] MEDS: ASPIRIN 81 MG TAB NGT SCH (15:49)
[2019-05-16] MEDS: INSULIN GLARGINE [LANTus] (100 UNITS/ML) SYG SC SCH (20:07)
[2019-05-16] MEDS: ATORVASTATIN 80 MG TAB NGT SCH (20:09)
[2019-05-17] VITALS (66 sets, daily range): BP systolic 110–179; BP diastolic 67–123; PULSE 59–79; RESP 14–37
[2019-05-17] MEDS: NIFEdipine 10 MG CAP PO SCH ×4 (00:22→18:19)
[2019-05-17] MEDS: INSULIN ASPART [NOVOLOG] 3 ML PEN SC SCH ×6 (00:31→21:13)
[2019-05-17] MEDS ORDERED: FUROSEMIDE 20 MG INJ IV ONE (08:00)
[2019-05-17] MEDS: niCARdipine 50 MG in SOD CHLORIDE 0.9% 480 ML IV SCH ×2 (08:14→18:12)
[2019-05-17] MEDS: FAMOTIDINE 20 MG TAB PO SCH ×2 (08:19→20:11)
[2019-05-17] MEDS: SPIRONOLACTONE 25 MG TAB NGT SCH (08:19)
[2019-05-17] MEDS: METOPROLOL 100 MG TAB NGT SCH ×2 (08:20→20:12)
[2019-05-17] MEDS: LISINOPRIL 20 MG TAB GTB SCH ×2 (08:20→20:11)
[2019-05-17] MEDS: ASPIRIN 81 MG TAB NGT SCH (08:27)
--- NOTE | 2019-05-17 09:31 | CONS ---
Assessment/Plan Assessment/Plan Assessment/Plan (Daily) Assessment and recommendations; 1. Patient admitted with intracranial bleed due to likely hypertensive crisis with a history of severe hypertension. Despite adequate enteral antihypertensive regimen, patient still requiring nicardipine drip. 2. Marked improvement in encephalopathy. But patient still lethargic and still does not follow commands. 3. History of diabetes and hypertension. 4. Questionable left cephalic vein thrombosis. Continue current supportive care. Topical warm compresses to left arm. Consultation Date/Type/Reason Admit Date/Time May 08, 2019 at 23:21 Initial Consult Date 05/10/19 Type of Consult Pulmonary/critical care Patient is a 39-year-old lady who came into the hospital with complaints of nausea vomiting going on for the last 2 days with headache. Upon evaluation patient was extremely hypertensive then developed respiratory failure requiring intubation. Emergent CT imaging of the head was done which is showing intracranial hemorrhage. Patient has remained completely unresponsive. Was started on propofol drip for tachypnea. Past medical history; 1. Hypertension. Medications; reviewed. Allergies; none. Social history, family history, occupational history not available. Review of system; unable to be obtained. General exam; young female, orally intubated, sedated, currently in no distress. Requesting Provider: DAMIEN CHOUDHARY Date/Time of Note DATE: 05/17/19 TIME: 09:28 24 HR Interval Summary Free Text/Dictation Patient's condition has remained hemodynamically stable. Also exhibiting stable pulmonary status. Patient however still lethargic. General exam; young female, appears overweight. Awake. Currently no distress. Exam/Review of Systems Exam Vitals Vital Signs Date Temp Pulse Resp B/P (MAP) Pulse Ox O2 O2 Flow FiO2 Time Delivery Rate 05/17/19 72 35 161/87 98 08:30 (111) 05/17/19 Nasal 2.0 08:15 Cannula 05/17/19 97.8 08:00 05/15/19 30 01:11 Intake and Output 05/16/19 05/16/19 05/17/19 1515:00 23:00 07:00 IntakeIntake Total 1042 ml 1210 ml 710 ml OutputOutput Total 435 ml 740 ml 520 ml BalanceBalance 607 ml 470 ml 190 ml Exam H EENT exam; supple neck, no JVD. No lymphadenopathy. Midline trachea. No thyromegaly. There is improvement in bilateral subconjunctival edema. Patient has fair dentition. Nasogastric tube in place. Chest exam; diminished but clear breath sounds. S1-S2 audible, no murmurs. Regular rhythm. Abdomen exam; soft, protuberant. No organomegaly. Bowel sounds audible. Extremity exam; no peripheral edema. 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 Results Result Diagram: 05/17/19 0505 05/17/19 0504 Results 24hrs Laboratory Tests Test 05/16/19 12:11 05/16/19 17:18 05/16/19 20:06 05/16/19 21:06 Bedside Glucose 162 154 151 135 Test 05/17/19 00:28 05/17/19 04:32 05/17/19 05:04 05/17/19 05:05 Bedside Glucose 154 152 Sodium Level 143 Potassium Level 3.9 Chloride Level 115 H Carbon Dioxide Level 20 L Anion Gap 8 Blood Urea Nitrogen 26 H Creatinine 0.87 Est Glomerular > 60 Filtrat Rate mL/min Glucose Level 156 Calcium Level 9.2 Phosphorus Level 3.9 Magnesium Level 1.9 White Blood Count 8.5 Red Blood Count 5.23 # Hemoglobin 14.8 # Hematocrit 46.8 # Mean Corpuscular 89.5 Volume Mean Corpuscular 28.3 L Hemoglobin Mean Corpuscular 31.6 L Hemoglobin Concent Red Cell 13.8 Distribution Width Platelet Count 296 # Mean Platelet Volume 11.8 H Immature 0.500 H Granulocytes % Neutrophils % 61.0 Lymphocytes % 26.4 Monocytes % 7.3 Eosinophils % 4.3 Basophils % 0.5 Nucleated Red Blood 0.0 Cells % Immature 0.040 H Granulocytes # Neutrophils # 5.2 Lymphocytes # 2.2 Monocytes # 0.6 Eosinophils # 0.4 Basophils # 0.0 Nucleated Red Blood 0.0 Cells # Test 05/17/19 08:15 Bedside Glucose 134 Medications Medication Current Medications IV Flush (NS 3 ml) 3 ml PER PROTOCOL IV ; Start 05/09/19 at 00:00 Ondansetron HCl (Zofran Inj) 4 mg Q6H PRN IV NAUSEA/VOMITING; Start 05/09/19 at 00:00 Acetaminophen (Tylenol Tab) 650 mg Q6H PRN PO .PAIN 1-3 OR TEMP; Start 05/09/19 at 00:00 Acetaminophen/ Hydrocodone Bitart ([place] (5/325)) 1 tab Q6H PRN PO .MOD PAIN 4- 6; Start 05/09/19 at 00:00 Morphine Sulfate (morphine) 2 mg Q4H PRN IV .SEVERE PAIN 7-10 Last administered on 05/13/19at 15:41; Admin Dose 2 MG; Start 05/09/19 at 00:00 Docusate Sodium (Colace) 100 mg Q12H PRN PO .CONSTIPATION; Start 05/09/19 at 00:00 Magnesium Hydroxide (Milk Of Mag) 30 ml DAILY PRN PO .CONSTIPATION; Start 05/09/19 at 00:00 Hydralazine HCl (Apresoline) 10 mg Q6H PRN IV ELEVATED BLOOD PRESSURE Last administered on 05/15/19at 11:08; Admin Dose 10 MG; Start 05/09/19 at 00:00 Nitroglycerin (Nitroglycerin (Sl Tab) 0.4 Mg) 1 tab Q5M PRN SL ANGINA; Start 05/09/19 at 00:00 Labetalol HCl (Labetalol) 10 mg Q6H PRN IV sys bp > 160 Last administered on 05/15/19at 05:24; Admin Dose 10 MG; Start 05/09/19 at 05:00 Insulin Aspart (Novolog Insulin Pen) NOVOLOG *MODERATE* ALGORI... Q4 SC Last administered on 05/17/19at 04:36; Admin Dose 2 UNIT; Start 05/09/19 at 18:00 Miscellaneous Information 1 ea NOTE XX ; Start 05/09/19 at 17:00 Glucose (Glutose) 15 gm Q15M PRN PO DECREASED GLUCOSE; Start 05/09/19 at 17:00 Glucose (Glutose) 22.5 gm Q15M PRN PO DECREASED GLUCOSE; Start 05/09/19 at 17:00 Dextrose (D50w Syringe) 25 ml Q15M PRN IV DECREASED GLUCOSE; Start 05/09/19 at 17:00 Dextrose (D50w Syringe) 50 ml Q15M PRN IV DECREASED GLUCOSE; Start 05/09/19 at 17:00 Glucagon (Glucagen) 1 mg Q15M PRN IM DECREASED GLUCOSE; Start 05/09/19 at 17:00 Glucose (Glutose) 15 gm Q15M PRN BUCCAL DECREASED GLUCOSE; Start 05/09/19 at 17:00 Hydralazine HCl (Apresoline) 100 mg Q8 PO Last administered on 05/17/19 05:43; Admin Dose 100 MG; Start 05/10/19 at 14:00 Atorvastatin Calcium (Lipitor) 80 mg HS NGT Last administered on 05/16/19 20:09; Admin Dose 80 MG; Start 05/11/19 at 21:00 Insulin Glargine (Lantus) 10 units DAILY@2000 SC Last administered on 05/16/19 20:07; Admin Dose 10 UNITS; Start 05/11/19 at 20:00 Nicardipine HCl 50 mg/Sodium Chloride 500 ml @ 0 mls/hr TITRATE IV Last administered on 05/17/19 08:14; Admin Dose 50 MLS/HR; Start 05/13/19 at 12:00 Lorazepam (Ativan) 2 mg Q6H PRN IV agitation; Start 05/13/19 at 12:00 Famotidine (Pepcid) 20 mg Q12 PO Last administered on 05/17/19 08:19; Admin Dose 20 MG; Start 05/13/19 at 21:00 IV Flush (NS 10 ml) 10 ml PRN PRN IV IV PROTOCOL; Start 05/13/19 at 14:00 Metoprolol Tartrate (Lopressor) 200 mg BID NGT Last administered on 05/17/19 08:20; Admin Dose 200 MG; Start 05/14/19 at 09:15 Lisinopril (Zestril) 40 mg BID GTB Last administered on 05/17/19 08:20; Admin Dose 40 MG; Start 05/15/19 at 09:00 Nifedipine (Procardia) 10 mg Q6 PO Last administered on 05/17/19 05:43; Admin Dose 10 MG; Start 05/15/19 at 08:30 Spironolactone (Aldactone) 25 mg DAILY NGT Last administered on 05/17/19 08:19; Admin Dose 25 MG; Start 05/16/19 at 09:00 Aspirin (Aspirin) 81 mg DAILY NGT Last administered on 05/17/19 08:27; Admin Dose 81 MG; Start 05/16/19 at 15:00 JAYSON WASSERMAN 18, 2019 09:31
--- NOTE | 2019-05-17 09:47 | PN ---
Date/Time of Note Date/Time of Note DATE: 05/17/19 TIME: 09:34 Assessment/Plan VTE Prophylaxis Risk score (from Ns)>0 risk: 8 SCD applied (from [facility] [place]): Yes Pharmacological prophylaxis: NA/contraindicated Pharm contraindication: bleeding Lines/Catheters IV Catheter Type (from Nrsg): PICC Line Central line still needed: Yes Urinary Cath still in place: Yes Reason Cath still needed: urinary retention Assessment/Plan Hospital Course S: Patient still on Cardene drip, blood pressure still in the high normal range. Found with left upper extremity superficial clot, now on warm compresses and arm elevation. O: VS - see below PE: Gen: Morbidly obese woman lying supine in bed, lethargic but opening eyes Eyes: Slightly injected conjunctivae. Normal pupils ENT: Normal External Ears, Nose and Mouth. Moist mucous membranes. Neck: No meningismus. No lymphadenopathy. Resp: Clear to auscultation bilaterally. Cardio: Regular rate and rhythm, no murmurs appreciated. Abd: Soft, obese, nondistended, normal bowel sounds Ext: No lower extremity edema bilaterally Neuro: Eyes open spontaneously, tracking. Moving L arm and L leg spontaneously. Moves R leg and R arm to pain. Not following commands. Assessment/Plan: 39-year-old morbidly obese woman with history of HTN who comes in with decreased p.o. intake, lethargy preceded by delirium and nausea and vomiting. 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 #Encephalopathy-slightly improving as patient answers yes/no questions now, MRI brain showed several new and old infarcts concerning for central embolic source. There is a small frontal bleed which may be hemorrhagic infarct- TTE done without evidence of vegetations or thrombus - HIV negative - No concern for infectious meningitis based on LP, patient presently off antibiotics. - Dr. Laurent following. - Limit sedation as much as possible. #GARDENIA - Likely due to iatrogenic vancomycin toxicity- Now resolved. - Dr. Haas following, monitor for now #Respiratory failure- Intubated due to poor mental status- Self-extubated 6/16 AM - Currently protecting airway. Monitor cautiously in ICU versus tele bed near nursing station. # Hypertension: Blood pressure still on the high normal range despite 5 p.o. blood pressure medicines and IV Cardene drip still running - Continue current medications - still requiring nicardipene gtt, continue to titrate up PO meds as needed # DVT prophylaxis: SCDs 40 minutes critical care time spent on this patient today. Result Diagram: 05/17/19 0505 05/17/19 0504 Results 24hrs Laboratory Tests Test 05/16/19 12:11 05/16/19 17:18 05/16/19 20:06 05/16/19 21:06 Bedside Glucose 162 154 151 135 Test 05/17/19 00:28 05/17/19 04:32 05/17/19 05:04 05/17/19 05:05 Bedside Glucose 154 152 Sodium Level 143 Potassium Level 3.9 Chloride Level 115 H Carbon Dioxide Level 20 L Anion Gap 8 Blood Urea Nitrogen 26 H Creatinine 0.87 Est Glomerular > 60 Filtrat Rate mL/min Glucose Level 156 Calcium Level 9.2 Phosphorus Level 3.9 Magnesium Level 1.9 White Blood Count 8.5 Red Blood Count 5.23 # Hemoglobin 14.8 # Hematocrit 46.8 # Mean Corpuscular 89.5 Volume Mean Corpuscular 28.3 L Hemoglobin Mean Corpuscular 31.6 L Hemoglobin Concent Red Cell 13.8 Distribution Width Platelet Count 296 # Mean Platelet Volume 11.8 H Immature 0.500 H Granulocytes % Neutrophils % 61.0 Lymphocytes % 26.4 Monocytes % 7.3 Eosinophils % 4.3 Basophils % 0.5 Nucleated Red Blood 0.0 Cells % Immature 0.040 H Granulocytes # Neutrophils # 5.2 Lymphocytes # 2.2 Monocytes # 0.6 Eosinophils # 0.4 Basophils # 0.0 Nucleated Red Blood 0.0 Cells # Test 05/17/19 08:15 Bedside Glucose 134 Exam/Review of Systems Exam Vitals Vital Signs Date Temp Pulse Resp B/P (MAP) Pulse Ox O2 O2 Flow FiO2 Time Delivery Rate 05/17/19 72 35 161/87 98 08:30 (111) 05/17/19 Nasal 2.0 08:15 Cannula 05/17/19 97.8 08:00 05/15/19 30 01:11 Intake and Output 05/16/19 05/16/19 05/17/19 1515:00 23:00 07:00 IntakeIntake Total 1042 ml 1210 ml 710 ml OutputOutput Total 435 ml 740 ml 520 ml BalanceBalance 607 ml 470 ml 190 ml Results Results 24hrs Laboratory Tests Test 05/16/19 12:11 05/16/19 17:18 05/16/19 20:06 05/16/19 21:06 Bedside Glucose 162 154 151 135 Test 05/17/19 00:28 05/17/19 04:32 05/17/19 05:04 05/17/19 05:05 Bedside Glucose 154 152 Sodium Level 143 Potassium Level 3.9 Chloride Level 115 H Carbon Dioxide Level 20 L Anion Gap 8 Blood Urea Nitrogen 26 H Creatinine 0.87 Est Glomerular > 60 Filtrat Rate mL/min Glucose Level 156 Calcium Level 9.2 Phosphorus Level 3.9 Magnesium Level 1.9 White Blood Count 8.5 Red Blood Count 5.23 # Hemoglobin 14.8 # Hematocrit 46.8 # Mean Corpuscular 89.5 Volume Mean Corpuscular 28.3 L Hemoglobin Mean Corpuscular 31.6 L Hemoglobin Concent Red Cell 13.8 Distribution Width Platelet Count 296 # Mean Platelet Volume 11.8 H Immature 0.500 H Granulocytes % Neutrophils % 61.0 Lymphocytes % 26.4 Monocytes % 7.3 Eosinophils % 4.3 Basophils % 0.5 Nucleated Red Blood 0.0 Cells % Immature 0.040 H Granulocytes # Neutrophils # 5.2 Lymphocytes # 2.2 Monocytes # 0.6 Eosinophils # 0.4 Basophils # 0.0 Nucleated Red Blood 0.0 Cells # Test 05/17/19 08:15 Bedside Glucose 134 Medications Medication Current Medications IV Flush (NS 3 ml) 3 ml PER PROTOCOL IV ; Start 05/09/19 at 00:00 Ondansetron HCl (Zofran Inj) 4 mg Q6H PRN IV NAUSEA/VOMITING; Start 05/09/19 at 00:00 Acetaminophen (Tylenol Tab) 650 mg Q6H PRN PO .PAIN 1-3 OR TEMP; Start 05/09/19 at 00:00 Acetaminophen/ Hydrocodone Bitart ([place] (5/325)) 1 tab Q6H PRN PO .MOD PAIN 4- 6; Start 05/09/19 at 00:00 Morphine Sulfate (morphine) 2 mg Q4H PRN IV .SEVERE PAIN 7-10 Last administered on 05/13/19at 15:41; Admin Dose 2 MG; Start 05/09/19 at 00:00 Docusate Sodium (Colace) 100 mg Q12H PRN PO .CONSTIPATION; Start 05/09/19 at 00:00 Magnesium Hydroxide (Milk Of Mag) 30 ml DAILY PRN PO .CONSTIPATION; Start 05/09/19 at 00:00 Hydralazine HCl (Apresoline) 10 mg Q6H PRN IV ELEVATED BLOOD PRESSURE Last administered on 05/15/19at 11:08; Admin Dose 10 MG; Start 05/09/19 at 00:00 Nitroglycerin (Nitroglycerin (Sl Tab) 0.4 Mg) 1 tab Q5M PRN SL ANGINA; Start 05/09/19 at 00:00 Labetalol HCl (Labetalol) 10 mg Q6H PRN IV sys bp > 160 Last administered on 05/15/19at 05:24; Admin Dose 10 MG; Start 05/09/19 at 05:00 Insulin Aspart (Novolog Insulin Pen) NOVOLOG *MODERATE* ALGORI... Q4 SC Last administered on 05/17/19at 04:36; Admin Dose 2 UNIT; Start 05/09/19 at 18:00 Miscellaneous Information 1 ea NOTE XX ; Start 05/09/19 at 17:00 Glucose (Glutose) 15 gm Q15M PRN PO DECREASED GLUCOSE; Start 05/09/19 at 17:00 Glucose (Glutose) 22.5 gm Q15M PRN PO DECREASED GLUCOSE; Start 05/09/19 at 17:00 Dextrose (D50w Syringe) 25 ml Q15M PRN IV DECREASED GLUCOSE; Start 05/09/19 at 17:00 Dextrose (D50w Syringe) 50 ml Q15M PRN IV DECREASED GLUCOSE; Start 05/09/19 at 17:00 Glucagon (Glucagen) 1 mg Q15M PRN IM DECREASED GLUCOSE; Start 05/09/19 at 17:00 Glucose (Glutose) 15 gm Q15M PRN BUCCAL DECREASED GLUCOSE; Start 05/09/19 at 17:00 Hydralazine HCl (Apresoline) 100 mg Q8 PO Last administered on 05/17/19at 05:43; Admin Dose 100 MG; Start 05/10/19 at 14:00 Atorvastatin Calcium (Lipitor) 80 mg HS NGT Last administered on 05/16/19at 20:09; Admin Dose 80 MG; Start 05/11/19 at 21:00 Insulin Glargine (Lantus) 10 units DAILY@2000 SC Last administered on 05/16/19at 20:07; Admin Dose 10 UNITS; Start 05/11/19 at 20:00 Nicardipine HCl 50 mg/Sodium Chloride 500 ml @ 0 mls/hr TITRATE IV Last administered on 05/17/19 08:14; Admin Dose 50 MLS/HR; Start 05/13/19 at 12:00 Lorazepam (Ativan) 2 mg Q6H PRN IV agitation; Start 05/13/19 at 12:00 Famotidine (Pepcid) 20 mg Q12 PO Last administered on 05/17/19at 08:19; Admin Dose 20 MG; Start 05/13/19 at 21:00 IV Flush (NS 10 ml) 10 ml PRN PRN IV IV PROTOCOL; Start 05/13/19 at 14:00 Metoprolol Tartrate (Lopressor) 200 mg BID NGT Last administered on 05/17/19at 08:20; Admin Dose 200 MG; Start 05/14/19 at 09:15 Lisinopril (Zestril) 40 mg BID GTB Last administered on 05/17/19 08:20; Admin Dose 40 MG; Start 05/15/19 at 09:00 Nifedipine (Procardia) 10 mg Q6 PO Last administered on 05/17/19at 05:43; Admin Dose 10 MG; Start 05/15/19 at 08:30 Spironolactone (Aldactone) 25 mg DAILY NGT Last administered on 05/17/19at 08:19; Admin Dose 25 MG; Start 05/16/19 at 09:00 Aspirin (Aspirin) 81 mg DAILY NGT Last administered on 05/17/19at 08:27; Admin Dose 81 MG; Start 05/16/19 at 15:00 DAMIEN CHOUDHARY May 17, 2019 09:47
--- NOTE | 2019-05-17 12:39 | CONS ---
Assessment/Plan Assessment/Plan Assessment/Plan (Recall) 39 F c/ reported Hx of DM2, who presents for evaluation of multiple complaints, including GI Sx...and eventual ams, for which neurology is consulted. 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 The clinical picture was initially concerning for meningoencephalitis..CSF evaluation is inconsistent w/ infection...the erythrocytosis possibly due to a traumatic tap.. Head CT was notable for a left frontal hyperdensity, likely hemorrhagic t ransformation of an above referenced focus of acute ischemia is the context of severe hypertension.. CTA head and neck is negative for multifocal stenoses, which might otherwise suggests vasculitis, etc. TTE is unrevealing EEG was without epileptiform activity Ammonia wnl, HIV/RPR neg, ESR wnl Hypercoagulability panel is in progress, so far negative.. P Continue asa for secondary stroke prevention Consider SOFIA for further characterization Continued BP control to goal normotension PT/OT/ST when able Continue to hold all sedating medications where possible Other management and supportive care per primary Will follow clinically Consultation Date/Type/Reason Admit Date/Time May 08, 2019 at 23:21 Type of Consult Neurology Reason for Consultation ams Requesting Provider: DAMIEN CHOUDHARY Date/Time of Note DATE: 05/17/19 TIME: 12:37 24 HR Interval Summary Free Text/Dictation Continues acute care Exam/Review of Systems Exam Vitals Vital Signs Date Temp Pulse Resp B/P (MAP) Pulse Ox O2 O2 Flow FiO2 Time Delivery Rate 05/17/19 63 29 152/97 100 Nasal 10:00 (115) Cannula 05/17/19 2.0 08:15 05/17/19 97.8 08:00 05/15/19 30 01:11 Intake and Output 05/16/19 05/16/19 05/17/19 1515:00 23:00 07:00 IntakeIntake Total 1042 ml 1210 ml 740 ml OutputOutput Total 435 ml 740 ml 670 ml BalanceBalance 607 ml 470 ml 70 ml Exam PE: Gen Appearance: No Apparent Distress HEENT: Normocephalic Cardiovascular: Regular rate Abdomen: Soft Extremities: Dry NE: The patient was lethargic and nonverbal. Cranial nerve examination was limited by mental status. Pupils were equal and reactive to light. There was no afferent pupillary defect. Funduscopic examination was limited. Face was grossly symmetric, w/ present corneal and cough reflexes. Tone was normal. Muscle bulk was normal. I did not see fasciculations. The patient was weak on the right (arm > leg), but withdrew to noxious stimulation on the right; moved the left spontaneously. Coordination and gait testing was limited by mental status. Skinner's sign was absent. Plantar responses were flexor. Results Result Diagram: 05/17/19 0505 05/17/19 0504 Results 24hrs Laboratory Tests Test 05/16/19 17:18 05/16/19 20:06 05/16/19 21:06 05/17/19 00:28 Bedside Glucose 154 151 135 154 Test 05/17/19 04:32 05/17/19 05:04 05/17/19 05:05 05/17/19 08:15 Bedside Glucose 152 134 Sodium Level 143 Potassium Level 3.9 Chloride Level 115 H Carbon Dioxide Level 20 L Anion Gap 8 Blood Urea Nitrogen 26 H Creatinine 0.87 Est Glomerular > 60 Filtrat Rate mL/min Glucose Level 156 Calcium Level 9.2 Phosphorus Level 3.9 Magnesium Level 1.9 White Blood Count 8.5 Red Blood Count 5.23 # Hemoglobin 14.8 # Hematocrit 46.8 # Mean Corpuscular 89.5 Volume Mean Corpuscular 28.3 L Hemoglobin Mean Corpuscular 31.6 L Hemoglobin Concent Red Cell 13.8 Distribution Width Platelet Count 296 # Mean Platelet Volume 11.8 H Immature 0.500 H Granulocytes % Neutrophils % 61.0 Lymphocytes % 26.4 Monocytes % 7.3 Eosinophils % 4.3 Basophils % 0.5 Nucleated Red Blood 0.0 Cells % Immature 0.040 H Granulocytes # Neutrophils # 5.2 Lymphocytes # 2.2 Monocytes # 0.6 Eosinophils # 0.4 Basophils # 0.0 Nucleated Red Blood 0.0 Cells # Medications Medication Current Medications IV Flush (NS 3 ml) 3 ml PER PROTOCOL IV ; Start 05/09/19 at 00:00 Ondansetron HCl (Zofran Inj) 4 mg Q6H PRN IV NAUSEA/VOMITING; Start 05/09/19 at 00:00 Acetaminophen (Tylenol Tab) 650 mg Q6H PRN PO .PAIN 1-3 OR TEMP; Start 05/09/19 at 00:00 Acetaminophen/ Hydrocodone Bitart ([place] (5/325)) 1 tab Q6H PRN PO .MOD PAIN 4- 6; Start 05/09/19 at 00:00 Morphine Sulfate (morphine) 2 mg Q4H PRN IV .SEVERE PAIN 7-10 Last administered on 05/13/19at 15:41; Admin Dose 2 MG; Start 05/09/19 at 00:00 Docusate Sodium (Colace) 100 mg Q12H PRN PO .CONSTIPATION; Start 05/09/19 at 00:00 Magnesium Hydroxide (Milk Of Mag) 30 ml DAILY PRN PO .CONSTIPATION; Start 05/09/19 at 00:00 Hydralazine HCl (Apresoline) 10 mg Q6H PRN IV ELEVATED BLOOD PRESSURE Last administered on 05/15/19at 11:08; Admin Dose 10 MG; Start 05/09/19 at 00:00 Nitroglycerin (Nitroglycerin (Sl Tab) 0.4 Mg) 1 tab Q5M PRN SL ANGINA; Start 05/09/19 at 00:00 Labetalol HCl (Labetalol) 10 mg Q6H PRN IV sys bp > 160 Last administered on 05/15/19at 05:24; Admin Dose 10 MG; Start 05/09/19 at 05:00 Insulin Aspart (Novolog Insulin Pen) NOVOLOG *MODERATE* ALGORI... Q4 SC Last ad ministered on 05/17/19at 04:36; Admin Dose 2 UNIT; Start 05/09/19 at 18:00 Miscellaneous Information 1 ea NOTE XX ; Start 05/09/19 at 17:00 Glucose (Glutose) 15 gm Q15M PRN PO DECREASED GLUCOSE; Start 05/09/19 at 17:00 Glucose (Glutose) 22.5 gm Q15M PRN PO DECREASED GLUCOSE; Start 05/09/19 at 17:00 Dextrose (D50w Syringe) 25 ml Q15M PRN IV DECREASED GLUCOSE; Start 05/09/19 at 17:00 Dextrose (D50w Syringe) 50 ml Q15M PRN IV DECREASED GLUCOSE; Start 05/09/19 at 17:00 Glucagon (Glucagen) 1 mg Q15M PRN IM DECREASED GLUCOSE; Start 05/09/19 at 17:00 Glucose (Glutose) 15 gm Q15M PRN BUCCAL DECREASED GLUCOSE; Start 05/09/19 at 17:00 Hydralazine HCl (Apresoline) 100 mg Q8 PO Last administered on 05/17/19 05:43; Admin Dose 100 MG; Start 05/10/19 at 14:00 Atorvastatin Calcium (Lipitor) 80 mg HS NGT Last administered on 05/16/19 20:09; Admin Dose 80 MG; Start 05/11/19 at 21:00 Insulin Glargine (Lantus) 10 units DAILY@2000 SC Last administered on 05/16/19 20:07; Admin Dose 10 UNITS; Start 05/11/19 at 20:00 Nicardipine HCl 50 mg/Sodium Chloride 500 ml @ 0 mls/hr TITRATE IV Last adminis tered on 05/17/19 08:14; Admin Dose 50 MLS/HR; Start 05/13/19 at 12:00 Lorazepam (Ativan) 2 mg Q6H PRN IV agitation; Start 05/13/19 at 12:00 Famotidine (Pepcid) 20 mg Q12 PO Last administered on 05/17/19 08:19; Admin Dose 20 MG; Start 05/13/19 at 21:00 IV Flush (NS 10 ml) 10 ml PRN PRN IV IV PROTOCOL; Start 05/13/19 at 14:00 Metoprolol Tartrate (Lopressor) 200 mg BID NGT Last administered on 05/17/19at 08:20; Admin Dose 200 MG; Start 05/14/19 at 09:15 Lisinopril (Zestril) 40 mg BID GTB Last administered on 05/17/19 08:20; Admin Dose 40 MG; Start 05/15/19 at 09:00 Nifedipine (Procardia) 10 mg Q6 PO Last administered on 05/17/19 05:43; Admin Dose 10 MG; Start 05/15/19 at 08:30 Spironolactone (Aldactone) 25 mg DAILY NGT Last administered on 05/17/19 08:19; Admin Dose 25 MG; Start 05/16/19 at 09:00 Aspirin (Aspirin) 81 mg DAILY NGT Last administered on 05/17/19 08:27; Admin Dose 81 MG; Start 05/16/19 at 15:00 JOSÉ TORO May 17, 2019 12:39
--- NOTE | 2019-05-17 13:20 | CONS ---
Assessment/Plan Assessment/Plan Hospital Course (Demo Recall) No events overnight patient looks comfortable no fevers WBC 7.4 no shift no bands BUN 22 creatinine 0.66 Indwelling: NGT Bojorquez catheter Physical examination: Morbidly obese well-developed middle-aged woman who is intubated sedated in no distress. Head atraumatic normocephalic sclera arnold cteric unable to assess pupils as her pupils facing down. Bugle mucosa dry. Neck is supple chest rise symmetrical breath sounds diminished bases. Heart: S1-S2. Abdomen obese soft bowel tones present. Extremities without cyanosis. Assessment: 1. Acute encephalopathy 2 to acute infarcts, resolving 2. Acute respiratory failure, status post self extubated 3. Morbid obesity 4. Acute kidney insufficiency 5. Hypertension 6. Left upper extremity DVT Plan: Remains unchanged, stable off abx, continue aspiration precautions Consultation Date/Type/Reason Admit Date/Time May 08, 2019 at 23:21 Initial Consult Date 05/10/19 Type of Consult id Requesting Provider: DAMIEN CHOUDHARY Date/Time of Note DATE: 05/17/19 TIME: 13:18 Exam/Review of Systems Exam Vitals Vital Signs Date Temp Pulse Resp B/P (MAP) Pulse Ox O2 O2 Flow FiO2 Time Delivery Rate 05/17/19 67 22 166/83 95 12:30 (110) 05/17/19 98.0 Room Air 12:00 05/17/19 2.0 08:15 05/15/19 30 01:11 Intake and Output 05/16/19 05/16/19 05/17/19 1515:00 23:00 07:00 IntakeIntake Total 1042 ml 1210 ml 740 ml OutputOutput Total 435 ml 740 ml 670 ml BalanceBalance 607 ml 470 ml 70 ml Results Result Diagram: 05/17/19 0505 05/17/19 0504 Results 24hrs Laboratory Tests Test 05/16/19 17:18 05/16/19 20:06 05/16/19 21:06 05/17/19 00:28 Bedside Glucose 154 151 135 154 Test 05/17/19 04:32 05/17/19 05:04 05/17/19 05:05 05/17/19 08:15 Bedside Glucose 152 134 Sodium Level 143 Potassium Level 3.9 Chloride Level 115 H Carbon Dioxide Level 20 L Anion Gap 8 Blood Urea Nitrogen 26 H Creatinine 0.87 Est Glomerular > 60 Filtrat Rate mL/min Glucose Level 156 Calcium Level 9.2 Phosphorus Level 3.9 Magnesium Level 1.9 White Blood Count 8.5 Red Blood Count 5.23 # Hemoglobin 14.8 # Hematocrit 46.8 # Mean Corpuscular 89.5 Volume Mean Corpuscular 28.3 L Hemoglobin Mean Corpuscular 31.6 L Hemoglobin Concent Red Cell 13.8 Distribution Width Platelet Count 296 # Mean Platelet Volume 11.8 H Immature 0.500 H Granulocytes % Neutrophils % 61.0 Lymphocytes % 26.4 Monocytes % 7.3 Eosinophils % 4.3 Basophils % 0.5 Nucleated Red Blood 0.0 Cells % Immature 0.040 H Granulocytes # Neutrophils # 5.2 Lymphocytes # 2.2 Monocytes # 0.6 Eosinophils # 0.4 Basophils # 0.0 Nucleated Red Blood 0.0 Cells # Test 05/17/19 12:55 Bedside Glucose 152 Medications Medication Current Medications IV Flush (NS 3 ml) 3 ml PER PROTOCOL IV ; Start 05/09/19 at 00:00 Ondansetron HCl (Zofran Inj) 4 mg Q6H PRN IV NAUSEA/VOMITING; Start 05/09/19 at 00:00 Acetaminophen (Tylenol Tab) 650 mg Q6H PRN PO .PAIN 1-3 OR TEMP; Start 05/09/19 at 00:00 Acetaminophen/ Hydrocodone Bitart ([place] (5/325)) 1 tab Q6H PRN PO .MOD PAIN 4- 6; Start 05/09/19 at 00:00 Morphine Sulfate (morphine) 2 mg Q4H PRN IV .SEVERE PAIN 7-10 Last administered on 05/13/19at 15:41; Admin Dose 2 MG; Start 05/09/19 at 00:00 Docusate Sodium (Colace) 100 mg Q12H PRN PO .CONSTIPATION; Start 05/09/19 at 00:00 Magnesium Hydroxide (Milk Of Mag) 30 ml DAILY PRN PO .CONSTIPATION; Start 05/09/19 at 00:00 Hydralazine HCl (Apresoline) 10 mg Q6H PRN IV ELEVATED BLOOD PRESSURE Last ad ministered on 05/15/19at 11:08; Admin Dose 10 MG; Start 05/09/19 at 00:00 Nitroglycerin (Nitroglycerin (Sl Tab) 0.4 Mg) 1 tab Q5M PRN SL ANGINA; Start 05/09/19 at 00:00 Labetalol HCl (Labetalol) 10 mg Q6H PRN IV sys bp > 160 Last administered on 05/15/19at 05:24; Admin Dose 10 MG; Start 05/09/19 at 05:00 Insulin Aspart (Novolog Insulin Pen) NOVOLOG *MODERATE* ALGORI... Q4 SC Last administered on 05/17/19at 12:59; Admin Dose 2 UNIT; Start 05/09/19 at 18:00 Miscellaneous Information 1 ea NOTE XX ; Start 05/09/19 at 17:00 Glucose (Glutose) 15 gm Q15M PRN PO DECREASED GLUCOSE; Start 05/09/19 at 17:00 Glucose (Glutose) 22.5 gm Q15M PRN PO DECREASED GLUCOSE; Start 05/09/19 at 17:00 Dextrose (D50w Syringe) 25 ml Q15M PRN IV DECREASED GLUCOSE; Start 05/09/19 at 17:00 Dextrose (D50w Syringe) 50 ml Q15M PRN IV DECREASED GLUCOSE; Start 05/09/19 at 17:00 Glucagon (Glucagen) 1 mg Q15M PRN IM DECREASED GLUCOSE; Start 05/09/19 at 17:00 Glucose (Glutose) 15 gm Q15M PRN BUCCAL DECREASED GLUCOSE; Start 05/09/19 at 17:00 Hydralazine HCl (Apresoline) 100 mg Q8 PO Last administered on 05/17/19at 05:43; Admin Dose 100 MG; Start 05/10/19 at 14:00 Atorvastatin Calcium (Lipitor) 80 mg HS NGT Last administered on 05/16/19at 20:09; Admin Dose 80 MG; Start 05/11/19 at 21:00 Insulin Glargine (Lantus) 10 units DAILY@2000 SC Last administered on 05/16/19at 20:07; Admin Dose 10 UNITS; Start 05/11/19 at 20:00 Nicardipine HCl 50 mg/Sodium Chloride 500 ml @ 0 mls/hr TITRATE IV Last administered on 05/17/19at 08:14; Admin Dose 50 MLS/HR; Start 05/13/19 at 12:00 Lorazepam (Ativan) 2 mg Q6H PRN IV agitation; Start 05/13/19 at 12:00 Famotidine (Pepcid) 20 mg Q12 PO Last administered on 05/17/19 08:19; Admin Dose 20 MG; Start 05/13/19 at 21:00 IV Flush (NS 10 ml) 10 ml PRN PRN IV IV PROTOCOL; Start 05/13/19 at 14:00 Metoprolol Tartrate (Lopressor) 200 mg BID NGT Last administered on 05/17/19 08:20; Admin Dose 200 MG; Start 05/14/19 at 09:15 Lisinopril (Zestril) 40 mg BID GTB Last administered on 05/17/19 08:20; Admin Dose 40 MG; Start 05/15/19 at 09:00 Nifedipine (Procardia) 10 mg Q6 PO Last administered on 05/17/19at 12:53; Admin Dose 10 MG; Start 05/15/19 at 08:30 Spironolactone (Aldactone) 25 mg DAILY NGT Last administered on 05/17/19 08:19; Admin Dose 25 MG; Start 05/16/19 at 09:00 Aspirin (Aspirin) 81 mg DAILY NGT Last administered on 05/17/19at 08:27; Admin Dose 81 MG; Start 05/16/19 at 15:00 ROHIT CHAWLA NP May 17, 2019 13:20
[2019-05-17] MEDS: LABETALOL HCL 20MG INJ IV PRN (16:10)
[2019-05-17] MEDS: morphine 2 MG INJ IV PRN (18:19)
[2019-05-17] MEDS: INSULIN GLARGINE [LANTus] (100 UNITS/ML) SYG SC SCH (20:11)
[2019-05-17] MEDS: ATORVASTATIN 80 MG TAB NGT SCH (20:11)
[2019-05-18] VITALS (58 sets, daily range): BP systolic 115–189; BP diastolic 74–121; PULSE 58–79; RESP 16–36
[2019-05-18] MEDS: NIFEdipine 10 MG CAP PO SCH ×4 (00:25→17:46)
[2019-05-18] MEDS: INSULIN ASPART [NOVOLOG] 3 ML PEN SC SCH ×6 (01:13→20:40)
[2019-05-18] MEDS: niCARdipine 50 MG in SOD CHLORIDE 0.9% 480 ML IV SCH ×3 (01:20→20:14)
[2019-05-18] MEDS: hydrALAzine 20 MG INJ IV PRN ×2 (02:51→15:49)
[2019-05-18] MEDS: morphine 2 MG INJ IV PRN (04:11)
[2019-05-18] MEDS ORDERED: MAGNESIUM SULFATE 2 GM/50 ML 50 ML IVPB ONE (07:00)
--- NOTE | 2019-05-18 07:07 | PN ---
DATE: 05/17/2019 SUBJECTIVE: The patient remains in serious but stable condition. The patient currently remains on C ardene drip. No other acute events noted. OBJECTIVE: VITAL SIGNS: Blood pressure is 147/77, respirations 34, pulse 67, temperature 98.6. HEENT: Head is normocephalic. NECK: Supple. HEART: Regular rate. LUNGS: Show diminished breath sounds at the base. ABDOMEN: Soft, nontender to palpation without rebound or guarding. EXTREMITIES: Negative for clubbing, cyanosis, no edema. DERMATOLOGIC: No rashes. MUSCULOSKELETAL: No joint effusions. NEUROLOGIC: No change in exam. MEDICATIONS: Reviewed. LABORATORY DATA: Has been reviewed. IMAGING STUDIES: Have been reviewed. ASSESSMENT AND PLAN: 1. Nonoliguric acute kidney injury with previous baseline creatinine of 0.72 mg/dL. Etiology of acu te kidney injury is secondary to vancomycin nephrotoxicity, hemodynamics. Renal function is improved . Continue current treatment plan, supportive care, renally dose all meds. 2. Volume overload. We will continue to monitor and give intermittent diuretic therapy as needed. 3. Hypokalemia. Continue to monitor and replete. 4. Mineral bone disorder. Monitor calcium and phosphorus levels. 5. Acute encephalopathy. Etiology secondary to cerebrovascular accident. The patient's MRI shows m ultiple infarcts. Continue current medical management. Follow up with neurology. 6. Hypertensive urgency. The patient's blood pressures remain elevated. Continue to wean off Carde ne drip. Continue current blood pressure regimen and adjust as needed. 7. Respiratory failure. The patient is status post self-extubation. Continue to monitor. 8. History of cerebrovascular accident with frontal hematoma. Continue medical management. 9. Tachyarrhythmia. Continue to monitor. 10. Systemic inflammatory response syndrome. Continue to monitor. 11. Hyponatremia, improved. Continue free water flushes. Dictated By: AMELIA NUÑEZ/ALISHA Conf#: [id number] DID#: [id number]
[2019-05-18] MEDS: LABETALOL HCL 20MG INJ IV PRN ×2 (08:01→17:26)
[2019-05-18] MEDS: POTASSIUM CHLORIDE 100 ML IVPB SCH ×2 (08:01→10:03)
[2019-05-18] MEDS: ASPIRIN 81 MG TAB NGT SCH (08:44)
[2019-05-18] MEDS: SPIRONOLACTONE 25 MG TAB NGT SCH (08:44)
[2019-05-18] MEDS: METOPROLOL 100 MG TAB NGT SCH ×2 (08:44→20:39)
[2019-05-18] MEDS: LISINOPRIL 20 MG TAB GTB SCH ×2 (08:44→20:39)
[2019-05-18] MEDS: FAMOTIDINE 20 MG TAB PO SCH (08:44)
--- NOTE | 2019-05-18 09:09 | PN ---
Date/Time of Note Date/Time of Note DATE: 05/18/19 TIME: 09:07 Assessment/Plan VTE Prophylaxis Risk score (from Ns)>0 risk: 7 SCD applied (from Ns): Yes Pharmacological prophylaxis: NA/contraindicated Pharm contraindication: bleeding Lines/Catheters IV Catheter Type (from Nrsg): Mid Line Urinary Cath still in place: Yes Reason Cath still needed: urinary retention Assessment/Plan Hospital Course S: Patient still on Cardene drip, per nursing staff a bit more awake and alert today as well but still overall lethargic. O: VS - see below PE: Gen: Morbidly obese woman lying supine in bed, lethargic but opening eyes Eyes: Slightly injected conjunctivae. Normal pupils ENT: Normal External Ears, Nose and Mouth. Moist mucous membranes. Neck: No meningismus. No lymphadenopathy. Resp: Clear to auscultation bilaterally. Cardio: Regular rate and rhythm, no murmurs appreciated. Abd: Soft, obese, nondistended, normal bowel sounds Ext: No lower extremity edema bilaterally Neuro: Eyes open spontaneously, tracking. Moving L arm and L leg spontaneously. Moves R leg and R arm to pain. Not following commands. Assessment/Plan: 39-year-old morbidly obese woman with history of HTN who comes in with decreased p.o. intake, lethargy preceded by delirium and nausea and vomi ting. 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 #Encephalopathy-slowly improving as patient answers yes/no questions now, MRI brain showed several new and old infarcts concerning for central embolic source. There is a small frontal bleed which may be hemorrhagic infarct- TTE done without evidence of vegetations or thrombus - HIV negative - No concern for infectious meningitis based on LP, patient presently off antibiotics. -Neurology Dr. Laurent following, monitor, follow-up their recommendations - Limit sedation as much as possible, continue PT and OT as much as possible #G[place]EN[place] - Likely due to iatrogenic vancomycin toxicity- Now resolved. - Dr. Haas following, monitor for now #Respiratory failure- Intubated due to poor mental status- Self-extubated 6/16 AM - Currently protecting airway. Monitor cautiously in ICU versus tele bed near nursing station. # Hypertension: Blood pressure still on the high normal range despite 5 p.o. blood pressure medicines and IV Cardene drip still running - Continue current medications - still requiring nicardipene gtt, continue to titrate up PO meds as needed # DVT prophylaxis: SCDs 50 minutes critical care time spent on this patient today. Result Diagram: 05/18/19 0455 05/18/19 0455 Results 24hrs Laboratory Tests Test 05/17/19 12:55 05/17/19 16:42 05/17/19 16:44 05/17/19 18:20 Bedside Glucose 152 128 123 Sodium Level 143 Potassium Level 3.8 Chloride Level 109 Carbon Dioxide Level 25 Anion Gap 9 Blood Urea Nitrogen 24 H Creatinine 0.83 Est Glomerular > 60 Filtrat Rate mL/min Glucose Level 149 Calcium Level 9.1 Test 05/17/19 20:10 05/17/19 21:08 05/18/19 00:24 05/18/19 04:55 Bedside Glucose 127 144 145 White Blood Count 8.2 Red Blood Count 5.05 Hemoglobin 14.4 Hematocrit 44.9 Mean Corpuscular 88.9 Volume Mean Corpuscular 28.5 L Hemoglobin Mean Corpuscular 32.1 Hemoglobin Concent Red Cell 13.3 Distribution Width Platelet Count 283 Mean Platelet Volume 11.0 H Immature 0.400 Granulocytes % Neutrophils % 62.6 Lymphocytes % 24.4 Monocytes % 9.3 Eosinophils % 2.8 Basophils % 0.5 Nucleated Red Blood 0.0 Cells % Immature 0.030 Granulocytes # Neutrophils # 5.1 Lymphocytes # 2.0 Monocytes # 0.8 Eosinophils # 0.2 Basophils # 0.0 Nucleated Red Blood 0.0 Cells # Sodium Level 141 Potassium Level 3.5 Chloride Level 107 Carbon Dioxide Level 26 Anion Gap 8 Blood Urea Nitrogen 19 Creatinine 0.77 Est Glomerular > 60 Filtrat Rate mL/min Glucose Level 160 Calcium Level 9.1 Phosphorus Level 4.2 Magnesium Level 1.6 L Test 05/18/19 05:09 05/18/19 08:46 Bedside Glucose 146 153 Exam/Review of Systems Exam Vitals Vital Signs Date Temp Pulse Resp B/P (MAP) Pulse Ox O2 O2 Flow FiO2 Time Delivery Rate 05/18/19 76 08:00 05/18/19 19 147/81 99 Nasal 06:00 (103) Cannula 05/18/19 2.0 05:10 05/18/19 96.8 04:00 05/15/19 30 01:11 Intake and Output 05/17/19 05/17/19 05/18/19 1515:00 23:00 07:00 IntakeIntake Total 705 ml 880 ml 660 ml OutputOutput Total 3275 ml 1355 ml 1125 ml BalanceBalance -2570 ml -475 ml -465 ml Results Results 24hrs Laboratory Tests Test 05/17/19 12:55 05/17/19 16:42 05/17/19 16:44 05/17/19 18:20 Bedside Glucose 152 128 123 Sodium Level 143 Potassium Level 3.8 Chloride Level 109 Carbon Dioxide Level 25 Anion Gap 9 Blood Urea Nitrogen 24 H Creatinine 0.83 Est Glomerular > 60 Filtrat Rate mL/min Glucose Level 149 Calcium Level 9.1 Test 05/17/19 20:10 05/17/19 21:08 05/18/19 00:24 05/18/19 04:55 Bedside Glucose 127 144 145 White Blood Count 8.2 Red Blood Count 5.05 Hemoglobin 14.4 Hematocrit 44.9 Mean Corpuscular 88.9 Volume Mean Corpuscular 28.5 L Hemoglobin Mean Corpuscular 32.1 Hemoglobin Concent Red Cell 13.3 Distribution Width Platelet Count 283 Mean Platelet Volume 11.0 H Immature 0.400 Granulocytes % Neutrophils % 62.6 Lymphocytes % 24.4 Monocytes % 9.3 Eosinophils % 2.8 Basophils % 0.5 Nucleated Red Blood 0.0 Cells % Immature 0.030 Granulocytes # Neutrophils # 5.1 Lymphocytes # 2.0 Monocytes # 0.8 Eosinophils # 0.2 Basophils # 0.0 Nucleated Red Blood 0.0 Cells # Sodium Level 141 Potassium Level 3.5 Chloride Level 107 Carbon Dioxide Level 26 Anion Gap 8 Blood Urea Nitrogen 19 Creatinine 0.77 Est Glomerular > 60 Filtrat Rate mL/min Glucose Level 160 Calcium Level 9.1 Phosphorus Level 4.2 Magnesium Level 1.6 L Test 05/18/19 05:09 05/18/19 08:46 Bedside Glucose 146 153 Medications Medication Current Medications IV Flush (NS 3 ml) 3 ml PER PROTOCOL IV ; Start 05/09/19 at 00:00 Ondansetron HCl (Zofran Inj) 4 mg Q6H PRN IV NAUSEA/VOMITING; Start 05/09/19 at 00:00 Acetaminophen (Tylenol Tab) 650 mg Q6H PRN PO .PAIN 1-3 OR TEMP; Start 05/09/19 at 00:00 Acetaminophen/ Hydrocodone Bitart ([place] (5/325)) 1 tab Q6H PRN PO .MOD PAIN 4- 6; Start 05/09/19 at 00:00 Morphine Sulfate (morphine) 2 mg Q4H PRN IV .SEVERE PAIN 7-10 Last administered on 05/18/19at 04:11; Admin Dose 2 MG; Start 05/09/19 at 00:00 Docusate Sodium (Colace) 100 mg Q12H PRN PO .CONSTIPATION; Start 05/09/19 at 00:00 Magnesium Hydroxide (Milk Of Mag) 30 ml DAILY PRN PO .CONSTIPATION; Start 05/09/19 at 00:00 Hydralazine HCl (Apresoline) 10 mg Q6H PRN IV ELEVATED BLOOD PRESSURE Last administered on 05/18/19at 02:51; Admin Dose 10 MG; Start 05/09/19 at 00:00 Nitroglycerin (Nitroglycerin (Sl Tab) 0.4 Mg) 1 tab Q5M PRN SL ANGINA; Start 05/09/19 at 00:00 Labetalol HCl (Labetalol) 10 mg Q6H PRN IV sys bp > 160 Last administered on 05/18/19at 08:01; Admin Dose 10 MG; Start 05/09/19 at 05:00 Insulin Aspart (Novolog Insulin Pen) NOVOLOG *MODERATE* ALGORI... Q4 SC Last administered on 05/18/19at 08:49; Admin Dose 2 UNIT; Start 05/09/19 at 18:00 Miscellaneous Information 1 ea NOTE XX ; Start 05/09/19 at 17:00 Glucose (Glutose) 15 gm Q15M PRN PO DECREASED GLUCOSE; Start 05/09/19 at 17:00 Glucose (Glutose) 22.5 gm Q15M PRN PO DECREASED GLUCOSE; Start 05/09/19 at 17:00 Dextrose (D50w Syringe) 25 ml Q15M PRN IV DECREASED GLUCOSE; Start 05/09/19 at 17:00 Dextrose (D50w Syringe) 50 ml Q15M PRN IV DECREASED GLUCOSE; Start 05/09/19 at 17:00 Glucagon (Glucagen) 1 mg Q15M PRN IM DECREASED GLUCOSE; Start 05/09/19 at 17:00 Glucose (Glutose) 15 gm Q15M PRN BUCCAL DECREASED GLUCOSE; Start 05/09/19 at 17:00 Hydralazine HCl (Apresoline) 100 mg Q8 PO Last administered on 05/18/19 05:40; Admin Dose 100 MG; Start 05/10/19 at 14:00 Atorvastatin Calcium (Lipitor) 80 mg HS NGT Last administered on 05/17/19 20:11; Admin Dose 80 MG; Start 05/11/19 at 21:00 Insulin Glargine (Lantus) 10 units DAILY@2000 SC Last administered on 05/17/19 20:11; Admin Dose 10 UNITS; Start 05/11/19 at 20:00 Nicardipine HCl 50 mg/Sodium Chloride 500 ml @ 0 mls/hr TITRATE IV Last administered on 05/18/19 07:28; Admin Dose 100 MLS/HR; Start 05/13/19 at 12:00 Lorazepam (Ativan) 2 mg Q6H PRN IV agitation; Start 05/13/19 at 12:00 Famotidine (Pepcid) 20 mg Q12 PO Last administered on 05/18/19 08:44; Admin Dose 20 MG; Start 05/13/19 at 21:00 IV Flush (NS 10 ml) 10 ml PRN PRN IV IV PROTOCOL; Start 05/13/19 at 14:00 Metoprolol Tartrate (Lopressor) 200 mg BID NGT Last administered on 05/18/19 08:44; Admin Dose 200 MG; Start 05/14/19 at 09:15 Lisinopril (Zestril) 40 mg BID GTB Last administered on 05/18/19 08:44; Admin Dose 40 MG; Start 05/15/19 at 09:00 Nifedipine (Procardia) 10 mg Q6 PO Last administered on 05/18/19 05:40; Admin Dose 10 MG; Start 05/15/19 at 08:30 Aspirin (Aspirin) 81 mg DAILY NGT Last administered on 05/18/19 08:44; Admin Dose 81 MG; Start 05/16/19 at 15:00 Potassium Chloride 100 ml @ 50 mls/hr Q2H IVPB Last administered on 05/18/19 08:01; Admin Dose 50 MLS/HR; Start 05/18/19 at 07:00; Stop 05/18/19 at 10:59 Spironolactone (Aldactone) 50 mg DAILY@0600 NGT Last administered on 05/18/19at 08:44; Admin Dose 50 MG; Start 05/18/19 at 08:00 DAMIEN CHOUDHARY May 18, 2019 09:09
--- NOTE | 2019-05-18 09:22 | CONS ---
Assessment/Plan Assessment/Plan Assessment/Plan (Daily) Assessment and recommendations; 1. Patient admitted with respiratory failure due to intracranial bleed likely hypertensive in etiology. Status post self extubation few days ago with stable overall clinical status with interval improvement. 2. Encephalopathy with significant improvement in mental status. 3. Refractory hypertension. Currently on nicardipine drip. 4. History of diabetes. Continue current supportive care. Wean down nicardipine drip as tolerated. Consultation Date/Type/Reason Admit Date/Time May 08, 2019 at 23:21 Initial Consult Date 05/10/19 Type of Consult Pulmonary/critical care Patient is a 39-year-old lady who came into the hospital with complaints of nausea vomiting going on for the last 2 days with headache. Upon evaluation patient was extremely hypertensive then developed respiratory failure requiring intubation. Emergent CT imaging of the head was done which is showing intracranial hemorrhage. Patient has remained completely unresponsive. Was started on propofol drip for tachypnea. Past medical history; 1. Hypertension. Medications; reviewed. Allergies; none. Social history, family history, occupational history not available. Review of system; unable to be obtained. General exam; young female, orally intubated, sedated, currently in no distress. Requesting Provider: DAMIEN CHOUDHARY Date/Time of Note DATE: 05/18/19 TIME: 24 HR Interval Summary Free Text/Dictation Patient's condition is gradually improving. Mental status has improved significantly to the point where the patient now is following simple commands. Still requiring nicardipine drip for severe hypertension. Despite very aggressive antihypertensive regimen enterally. General exam; young female, awake and responsive appropriately. Currently in no distress. Exam/Review of Systems Exam Vitals Vital Signs Date Temp Pulse Resp B/P (MAP) Pulse Ox O2 O2 Flow FiO2 Time Delivery Rate 05/18/19 74 16 177/81 97 Room Air 09:00 (113) 05/18/19 98.3 08:00 05/18/19 2.0 05:10 05/15/19 30 01:11 Intake and Output 05/17/19 05/17/19 05/18/19 1515:00 23:00 07:00 IntakeIntake Total 705 ml 880 ml 700 ml OutputOutput Total 3275 ml 1355 ml 1240 ml BalanceBalance -2570 ml -475 ml -540 ml Exam H ENT exam; supple neck, no JVD. No lymphadenopathy. Midline trachea. No thyromegaly. There is reduction in bilateral subconjunctival edema. Patient has fair dentition. No neck masses. Chest exam; clear to auscultation. S1-S2 audible, no murmurs. Regular rhythm. Abdomen exam; soft, mildly protuberant. No organomegaly. Bowel sounds audible. Extremity exam; no edema or clubbing. RESIDENTIAL CAREGIVER exam; no obvious focal motor deficit. Patient though still exhibiting generalized weakness. Results Result Diagram: 05/18/19 0455 05/18/19 0455 Results 24hrs Laboratory Tests Test 05/17/19 12:55 05/17/19 16:42 05/17/19 16:44 05/17/19 18:20 Bedside Glucose 152 128 123 Sodium Level 143 Potassium Level 3.8 Chloride Level 109 Carbon Dioxide Level 25 Anion Gap 9 Blood Urea Nitrogen 24 H Creatinine 0.83 Est Glomerular > 60 Filtrat Rate mL/min Glucose Level 149 Calcium Level 9.1 Test 05/17/19 20:10 05/17/19 21:08 05/18/19 00:24 05/18/19 04:55 Bedside Glucose 127 144 145 White Blood Count 8.2 Red Blood Count 5.05 Hemoglobin 14.4 Hematocrit 44.9 Mean Corpuscular 88.9 Volume Mean Corpuscular 28.5 L Hemoglobin Mean Corpuscular 32.1 Hemoglobin Concent Red Cell 13.3 Distribution Width Platelet Count 283 Mean Platelet Volume 11.0 H Immature 0.400 Granulocytes % Neutrophils % 62.6 Lymphocytes % 24.4 Monocytes % 9.3 Eosinophils % 2.8 Basophils % 0.5 Nucleated Red Blood 0.0 Cells % Immature 0.030 Granulocytes # Neutrophils # 5.1 Lymphocytes # 2.0 Monocytes # 0.8 Eosinophils # 0.2 Basophils # 0.0 Nucleated Red Blood 0.0 Cells # Sodium Level 141 Potassium Level 3.5 Chloride Level 107 Carbon Dioxide Level 26 Anion Gap 8 Blood Urea Nitrogen 19 Creatinine 0.77 Est Glomerular > 60 Filtrat Rate mL/min Glucose Level 160 Calcium Level 9.1 Phosphorus Level 4.2 Magnesium Level 1.6 L Test 05/18/19 05:09 05/18/19 08:46 Bedside Glucose 146 153 Medications Medication Current Medications IV Flush (NS 3 ml) 3 ml PER PROTOCOL IV ; Start 05/09/19 at 00:00 Ondansetron HCl (Zofran Inj) 4 mg Q6H PRN IV NAUSEA/VOMITING; Start 05/09/19 at 00:00 Acetaminophen (Tylenol Tab) 650 mg Q6H PRN PO .PAIN 1-3 OR TEMP; Start 05/09/19 at 00:00 Acetaminophen/ Hydrocodone Bitart ([place] (5/325)) 1 tab Q6H PRN PO .MOD PAIN 4- 6; Start 05/09/19 at 00:00 Morphine Sulfate (morphine) 2 mg Q4H PRN IV .SEVERE PAIN 7-10 Last administered on 05/18/19at 04:11; Admin Dose 2 MG; Start 05/09/19 at 00:00 Docusate Sodium (Colace) 100 mg Q12H PRN PO .CONSTIPATION; Start 05/09/19 at 00:00 Magnesium Hydroxide (Milk Of Mag) 30 ml DAILY PRN PO .CONSTIPATION; Start 05/09/19 at 00:00 Hydralazine HCl (Apresoline) 10 mg Q6H PRN IV ELEVATED BLOOD PRESSURE Last administered on 05/18/19at 02:51; Admin Dose 10 MG; Start 05/09/19 at 00:00 Nitroglycerin (Nitroglycerin (Sl Tab) 0.4 Mg) 1 tab Q5M PRN SL ANGINA; Start 05/09/19 at 00:00 Labetalol HCl (Labetalol) 10 mg Q6H PRN IV sys bp > 160 Last administered on 05/18/19at 08:01; Admin Dose 10 MG; Start 05/09/19 at 05:00 Insulin Aspart (Novolog Insulin Pen) NOVOLOG *MODERATE* ALGORI... Q4 SC Last administered on 05/18/19at 08:49; Admin Dose 2 UNIT; Start 05/09/19 at 18:00 Miscellaneous Information 1 ea NOTE XX ; Start 05/09/19 at 17:00 Glucose (Glutose) 15 gm Q15M PRN PO DECREASED GLUCOSE; Start 05/09/19 at 17:00 Glucose (Glutose) 22.5 gm Q15M PRN PO DECREASED GLUCOSE; Start 05/09/19 at 17:00 Dextrose (D50w Syringe) 25 ml Q15M PRN IV DECREASED GLUCOSE; Start 05/09/19 at 17:00 Dextrose (D50w Syringe) 50 ml Q15M PRN IV DECREASED GLUCOSE; Start 05/09/19 at 17:00 Glucagon (Glucagen) 1 mg Q15M PRN IM DECREASED GLUCOSE; Start 05/09/19 at 17:00 Glucose (Glutose) 15 gm Q15M PRN BUCCAL DECREASED GLUCOSE; Start 05/09/19 at 17:00 Hydralazine HCl (Apresoline) 100 mg Q8 PO Last administered on 05/18/19 05:40; Admin Dose 100 MG; Start 05/10/19 at 14:00 Atorvastatin Calcium (Lipitor) 80 mg HS NGT Last administered on 05/17/19 20:11; Admin Dose 80 MG; Start 05/11/19 at 21:00 Insulin Glargine (Lantus) 10 units DAILY@2000 SC Last administered on 05/17/19 20:11; Admin Dose 10 UNITS; Start 05/11/19 at 20:00 Nicardipine HCl 50 mg/Sodium Chloride 500 ml @ 0 mls/hr TITRATE IV Last administered on 05/18/19 07:28; Admin Dose 100 MLS/HR; Start 05/13/19 at 12:00 Lorazepam (Ativan) 2 mg Q6H PRN IV agitation; Start 05/13/19 at 12:00 Famotidine (Pepcid) 20 mg Q12 PO Last administered on 05/18/19 08:44; Admin Dose 20 MG; Start 05/13/19 at 21:00 IV Flush (NS 10 ml) 10 ml PRN PRN IV IV PROTOCOL; Start 05/13/19 at 14:00 Metoprolol Tartrate (Lopressor) 200 mg BID NGT Last administered on 05/18/19 08:44; Admin Dose 200 MG; Start 05/14/19 at 09:15 Lisinopril (Zestril) 40 mg BID GTB Last administered on 05/18/19 08:44; Admin Dose 40 MG; Start 05/15/19 at 09:00 Nifedipine (Procardia) 10 mg Q6 PO Last administered on 05/18/19 05:40; Admin Dose 10 MG; Start 05/15/19 at 08:30 Aspirin (Aspirin) 81 mg DAILY NGT Last administered on 05/18/19 08:44; Admin Dose 81 MG; Start 05/16/19 at 15:00 Potassium Chloride 100 ml @ 50 mls/hr Q2H IVPB Last administered on 05/18/19at 08:01; Admin Dose 50 MLS/HR; Start 05/18/19 at 07:00; Stop 05/18/19 at 10:59 Spironolactone (Aldactone) 50 mg DAILY@0600 NGT Last administered on 05/18/19at 08:44; Admin Dose 50 MG; Start 05/18/19 at 08:00 JAYSON WASSERMAN May 18, 2019 09:22
--- NOTE | 2019-05-18 10:54 | CONS ---
Assessment/Plan Assessment/Plan Assessment/Plan (Recall) 39 F c/ reported Hx of DM2, who presents for evaluation of multiple complaints, including GI Sx...and eventual ams, for which neurology is consulted. 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 The clinical picture was initially concerning for meningoencephalitis..CSF evaluation is inconsistent w/ infection...the erythrocytosis possibly due to a traumatic tap.. Head CT was notable for a left frontal hyperdensity, likely hemorrhagic t ransformation of an above referenced focus of acute ischemia is the context of severe hypertension.. CTA head and neck is negative for multifocal stenoses, which might otherwise suggests vasculitis, etc. TTE is unrevealing EEG was without epileptiform activity Ammonia wnl, HIV/RPR neg, ESR wnl Hypercoagulability panel is in progress, so far negative.. P Continue asa for secondary stroke prevention Consider SOFIA for further characterization Continued BP control to goal normotension PT/OT/ST when able Continue to hold all sedating medications where possible Other management and supportive care per primary Will follow clinically Consultation Date/Type/Reason Admit Date/Time May 08, 2019 at 23:21 Type of Consult Neurology Reason for Consultation ams Requesting Provider: DAMIEN CHOUDHARY Date/Time of Note DATE: 05/18/19 TIME: 10:54 24 HR Interval Summary Free Text/Dictation Continues icu care Exam/Review of Systems Exam Vitals Vital Signs Date Temp Pulse Resp B/P (MAP) Pulse Ox O2 O2 Flow FiO2 Time Delivery Rate 05/18/19 59 29 136/77 93 Room Air 10:00 (96) 05/18/19 98.3 08:00 05/18/19 2.0 05:10 05/15/19 30 01:11 Intake and Output 05/17/19 05/17/19 05/18/19 1515:00 23:00 07:00 IntakeIntake Total 705 ml 880 ml 806.25 ml OutputOutput Total 3275 ml 1355 ml 1240 ml BalanceBalance -2570 ml -475 ml -433.75 ml Results Result Diagram: 05/18/19 0455 05/18/19 0455 Results 24hrs Laboratory Tests Test 05/17/19 12:55 05/17/19 16:42 05/17/19 16:44 05/17/19 18:20 Bedside Glucose 152 128 123 Sodium Level 143 Potassium Level 3.8 Chloride Level 109 Carbon Dioxide Level 25 Anion Gap 9 Blood Urea Nitrogen 24 H Creatinine 0.83 Est Glomerular > 60 Filtrat Rate mL/min Glucose Level 149 Calcium Level 9.1 Test 05/17/19 20:10 05/17/19 21:08 05/18/19 00:24 05/18/19 04:55 Bedside Glucose 127 144 145 White Blood Count 8.2 Red Blood Count 5.05 Hemoglobin 14.4 Hematocrit 44.9 Mean Corpuscular 88.9 Volume Mean Corpuscular 28.5 L Hemoglobin Mean Corpuscular 32.1 Hemoglobin Concent Red Cell 13.3 Distribution Width Platelet Count 283 Mean Platelet Volume 11.0 H Immature 0.400 Granulocytes % Neutrophils % 62.6 Lymphocytes % 24.4 Monocytes % 9.3 Eosinophils % 2.8 Basophils % 0.5 Nucleated Red Blood 0.0 Cells % Immature 0.030 Granulocytes # Neutrophils # 5.1 Lymphocytes # 2.0 Monocytes # 0.8 Eosinophils # 0.2 Basophils # 0.0 Nucleated Red Blood 0.0 Cells # Sodium Level 141 Potassium Level 3.5 Chloride Level 107 Carbon Dioxide Level 26 Anion Gap 8 Blood Urea Nitrogen 19 Creatinine 0.77 Est Glomerular > 60 Filtrat Rate mL/min Glucose Level 160 Calcium Level 9.1 Phosphorus Level 4.2 Magnesium Level 1.6 L Test 05/18/19 05:09 05/18/19 08:46 Bedside Glucose 146 153 Medications Medication Current Medications IV Flush (NS 3 ml) 3 ml PER PROTOCOL IV ; Start 05/09/19 at 00:00 Ondansetron HCl (Zofran Inj) 4 mg Q6H PRN IV NAUSEA/VOMITING; Start 05/09/19 at 00:00 Acetaminophen (Tylenol Tab) 650 mg Q6H PRN PO .PAIN 1-3 OR TEMP; Start 05/09/19 at 00:00 Acetaminophen/ Hydrocodone Bitart ([place] (5/325)) 1 tab Q6H PRN PO .MOD PAIN 4- 6; Start 05/09/19 at 00:00 Morphine Sulfate (morphine) 2 mg Q4H PRN IV .SEVERE PAIN 7-10 Last administered on 05/18/19at 04:11; Admin Dose 2 MG; Start 05/09/19 at 00:00 Docusate Sodium (Colace) 100 mg Q12H PRN PO .CONSTIPATION; Start 05/09/19 at 00:00 Magnesium Hydroxide (Milk Of Mag) 30 ml DAILY PRN PO .CONSTIPATION; Start 05/09/19 at 00:00 Hydralazine HCl (Apresoline) 10 mg Q6H PRN IV ELEVATED BLOOD PRESSURE Last administered on 05/18/19at 02:51; Admin Dose 10 MG; Start 05/09/19 at 00:00 Nitroglycerin (Nitroglycerin (Sl Tab) 0.4 Mg) 1 tab Q5M PRN SL ANGINA; Start 05/09/19 at 00:00 Labetalol HCl (Labetalol) 10 mg Q6H PRN IV sys bp > 160 Last administered on 05/18/19at 08:01; Admin Dose 10 MG; Start 05/09/19 at 05:00 Insulin Aspart (Novolog Insulin Pen) NOVOLOG *MODERATE* ALGORI... Q4 SC Last administered on 05/18/19at 08:49; Admin Dose 2 UNIT; Start 05/09/19 at 18:00 Miscellaneous Information 1 ea NOTE XX ; Start 05/09/19 at 17:00 Glucose (Glutose) 15 gm Q15M PRN PO DECREASED GLUCOSE; Start 05/09/19 at 17:00 Glucose (Glutose) 22.5 gm Q15M PRN PO DECREASED GLUCOSE; Start 05/09/19 at 17:00 Dextrose (D50w Syringe) 25 ml Q15M PRN IV DECREASED GLUCOSE; Start 05/09/19 at 17:00 Dextrose (D50w Syringe) 50 ml Q15M PRN IV DECREASED GLUCOSE; Start 05/09/19 at 17:00 Glucagon (Glucagen) 1 mg Q15M PRN IM DECREASED GLUCOSE; Start 05/09/19 at 17:00 Glucose (Glutose) 15 gm Q15M PRN BUCCAL DECREASED GLUCOSE; Start 05/09/19 at 17:00 Hydralazine HCl (Apresoline) 100 mg Q8 PO Last administered on 05/18/19at 05:40; Admin Dose 100 MG; Start 05/10/19 at 14:00 Atorvastatin Calcium (Lipitor) 80 mg HS NGT Last administered on 05/17/19at 20:11; Admin Dose 80 MG; Start 05/11/19 at 21:00 Insulin Glargine (Lantus) 10 units DAILY@2000 SC Last administered on 05/17/19 20:11; Admin Dose 10 UNITS; Start 05/11/19 at 20:00 Nicardipine HCl 50 mg/Sodium Chloride 500 ml @ 0 mls/hr TITRATE IV Last administered on 05/18/19 07:28; Admin Dose 100 MLS/HR; Start 05/13/19 at 12:00 Lorazepam (Ativan) 2 mg Q6H PRN IV agitation; Start 05/13/19 at 12:00 Famotidine (Pepcid) 20 mg Q12 PO Last administered on 05/18/19 08:44; Admin Dose 20 MG; Start 05/13/19 at 21:00 IV Flush (NS 10 ml) 10 ml PRN PRN IV IV PROTOCOL; Start 05/13/19 at 14:00 Metoprolol Tartrate (Lopressor) 200 mg BID NGT Last administered on 05/18/19 08:44; Admin Dose 200 MG; Start 05/14/19 at 09:15 Lisinopril (Zestril) 40 mg BID GTB Last administered on 05/18/19 08:44; Admin Dose 40 MG; Start 05/15/19 at 09:00 Nifedipine (Procardia) 10 mg Q6 PO Last administered on 05/18/19at 05:40; Admin Dose 10 MG; Start 05/15/19 at 08:30 Aspirin (Aspirin) 81 mg DAILY NGT Last administered on 05/18/19 08:44; Admin Dose 81 MG; Start 05/16/19 at 15:00 Potassium Chloride 100 ml @ 50 mls/hr Q2H IVPB Last administered on 05/18/19 10:03; Admin Dose 50 MLS/HR; Start 05/18/19 at 07:00; Stop 05/18/19 at 10:59 Spironolactone (Aldactone) 50 mg DAILY@0600 NGT Last administered on 05/18/19 08:44; Admin Dose 50 MG; Start 05/18/19 at 08:00 JOSÉ TORO 19, 2019 10:54
--- NOTE | 2019-05-18 11:49 | CONS ---
Assessment/Plan Assessment/Plan Hospital Course (Demo Recall) No acute changes patient is awake looks comfortable no fevers overnight WBC today 8.2 no shift no bands BUN 19 creatinine 0.77 Indwelling: NGT Bojorquez catheter Physical examination: Morbidly obese well-developed middle-aged woman who is intubated sedated in no distress. Head atraumatic normocephalic sclera nonicteric unable to assess pupils as her pupils facing down. Bugle mucosa dry. Neck is supple chest rise symmetrical breath sounds diminished bases. Heart: S1-S2. Abdomen obese soft bowel tones present. Extremities without cyanosis. Assessment: 1. Acute encephalopathy 2 to acute infarcts, resolving 2. Acute respiratory failure, status post self extubated 3. Morbid obesity 4. Acute kidney insufficiency 5. Hypertension 6. Left upper extremity DVT Plan: Doing better, stable off abx, continue aspiration precautions Consultation Date/Type/Reason Admit Date/Time May 08, 2019 at 23:21 Initial Consult Date 05/10/19 Type of Consult id Requesting Provider: DAMIEN CHOUDHARY Date/Time of Note DATE: 05/18/19 TIME: 11:49 Exam/Review of Systems Exam Vitals Vital Signs Date Temp Pulse Resp B/P (MAP) Pulse Ox O2 O2 Flow FiO2 Time Delivery Rate 05/18/19 58 27 132/83 97 Room Air 11:00 (99) 05/18/19 98.3 08:00 05/18/19 2.0 05:10 05/15/19 30 01:11 Intake and Output 05/17/19 05/17/19 05/18/19 1515:00 23:00 07:00 IntakeIntake Total 705 ml 880 ml 806.25 ml OutputOutput Total 3275 ml 1355 ml 1240 ml BalanceBalance -2570 ml -475 ml -433.75 ml Results Result Diagram: 05/18/19 0455 05/18/19 0455 Results 24hrs Laboratory Tests Test 05/17/19 12:55 05/17/19 16:42 05/17/19 16:44 05/17/19 18:20 Bedside Glucose 152 128 123 Sodium Level 143 Potassium Level 3.8 Chloride Level 109 Carbon Dioxide Level 25 Anion Gap 9 Blood Urea Nitrogen 24 H Creatinine 0.83 Est Glomerular > 60 Filtrat Rate mL/min Glucose Level 149 Calcium Level 9.1 Test 05/17/19 20:10 05/17/19 21:08 05/18/19 00:24 05/18/19 04:55 Bedside Glucose 127 144 145 White Blood Count 8.2 Red Blood Count 5.05 Hemoglobin 14.4 Hematocrit 44.9 Mean Corpuscular 88.9 Volume Mean Corpuscular 28.5 L Hemoglobin Mean Corpuscular 32.1 Hemoglobin Concent Red Cell 13.3 Distribution Width Platelet Count 283 Mean Platelet Volume 11.0 H Immature 0.400 Granulocytes % Neutrophils % 62.6 Lymphocytes % 24.4 Monocytes % 9.3 Eosinophils % 2.8 Basophils % 0.5 Nucleated Red Blood 0.0 Cells % Immature 0.030 Granulocytes # Neutrophils # 5.1 Lymphocytes # 2.0 Monocytes # 0.8 Eosinophils # 0.2 Basophils # 0.0 Nucleated Red Blood 0.0 Cells # Sodium Level 141 Potassium Level 3.5 Chloride Level 107 Carbon Dioxide Level 26 Anion Gap 8 Blood Urea Nitrogen 19 Creatinine 0.77 Est Glomerular > 60 Filtrat Rate mL/min Glucose Level 160 Calcium Level 9.1 Phosphorus Level 4.2 Magnesium Level 1.6 L Test 05/18/19 05:09 05/18/19 08:46 Bedside Glucose 146 153 Medications Medication Current Medications IV Flush (NS 3 ml) 3 ml PER PROTOCOL IV ; Start 05/09/19 at 00:00 Ondansetron HCl (Zofran Inj) 4 mg Q6H PRN IV NAUSEA/VOMITING; Start 05/09/19 at 00:00 Acetaminophen (Tylenol Tab) 650 mg Q6H PRN PO .PAIN 1-3 OR TEMP; Start 05/09/19 at 00:00 Acetaminophen/ Hydrocodone Bitart ([place] (5/325)) 1 tab Q6H PRN PO .MOD PAIN 4- 6; Start 05/09/19 at 00:00 Morphine Sulfate (morphine) 2 mg Q4H PRN IV .SEVERE PAIN 7-10 Last administered on 05/18/19at 04:11; Admin Dose 2 MG; Start 05/09/19 at 00:00 Docusate Sodium (Colace) 100 mg Q12H PRN PO .CONSTIPATION; Start 05/09/19 at 00:00 Magnesium Hydroxide (Milk Of Mag) 30 ml DAILY PRN PO .CONSTIPATION; Start 05/09/19 at 00:00 Hydralazine HCl (Apresoline) 10 mg Q6H PRN IV ELEVATED BLOOD PRESSURE Last administered on 05/18/19at 02:51; Admin Dose 10 MG; Start 05/09/19 at 00:00 Nitroglycerin (Nitroglycerin (Sl Tab) 0.4 Mg) 1 tab Q5M PRN SL ANGINA; Start 05/09/19 at 00:00 Labetalol HCl (Labetalol) 10 mg Q6H PRN IV sys bp > 160 Last administered on 05/18/19at 08:01; Admin Dose 10 MG; Start 05/09/19 at 05:00 Insulin Aspart (Novolog Insulin Pen) NOVOLOG *MODERATE* ALGORI... Q4 SC Last administered on 05/18/19at 08:49; Admin Dose 2 UNIT; Start 05/09/19 at 18:00 Miscellaneous Information 1 ea NOTE XX ; Start 05/09/19 at 17:00 Glucose (Glutose) 15 gm Q15M PRN PO DECREASED GLUCOSE; Start 05/09/19 at 17:00 Glucose (Glutose) 22.5 gm Q15M PRN PO DECREASED GLUCOSE; Start 05/09/19 at 1 7:00 Dextrose (D50w Syringe) 25 ml Q15M PRN IV DECREASED GLUCOSE; Start 05/09/19 at 17:00 Dextrose (D50w Syringe) 50 ml Q15M PRN IV DECREASED GLUCOSE; Start 05/09/19 at 17:00 Glucagon (Glucagen) 1 mg Q15M PRN IM DECREASED GLUCOSE; Start 05/09/19 at 17:00 Glucose (Glutose) 15 gm Q15M PRN BUCCAL DECREASED GLUCOSE; Start 05/09/19 at 17:00 Hydralazine HCl (Apresoline) 100 mg Q8 PO Last administered on 05/18/19at 05:40; Admin Dose 100 MG; Start 05/10/19 at 14:00 Atorvastatin Calcium (Lipitor) 80 mg HS NGT Last administered on 05/17/19at 20:11; Admin Dose 80 MG; Start 05/11/19 at 21:00 Insulin Glargine (Lantus) 10 units DAILY@2000 SC Last administered on 05/17/19at 20:11; Admin Dose 10 UNITS; Start 05/11/19 at 20:00 Nicardipine HCl 50 mg/Sodium Chloride 500 ml @ 0 mls/hr TITRATE IV Last adm inistered on 05/18/19 07:28; Admin Dose 100 MLS/HR; Start 05/13/19 at 12:00 Lorazepam (Ativan) 2 mg Q6H PRN IV agitation; Start 05/13/19 at 12:00 Famotidine (Pepcid) 20 mg Q12 PO Last administered on 05/18/19 08:44; Admin Dose 20 MG; Start 05/13/19 at 21:00 IV Flush (NS 10 ml) 10 ml PRN PRN IV IV PROTOCOL; Start 05/13/19 at 14:00 Metoprolol Tartrate (Lopressor) 200 mg BID NGT Last administered on 05/18/19 08:44; Admin Dose 200 MG; Start 05/14/19 at 09:15 Lisinopril (Zestril) 40 mg BID GTB Last administered on 05/18/19 08:44; Admin Dose 40 MG; Start 05/15/19 at 09:00 Nifedipine (Procardia) 10 mg Q6 PO Last administered on 05/18/19at 05:40; Admin Dose 10 MG; Start 05/15/19 at 08:30 Aspirin (Aspirin) 81 mg DAILY NGT Last administered on 05/18/19 08:44; Admin Dose 81 MG; Start 05/16/19 at 15:00 Spironolactone (Aldactone) 50 mg DAILY@0600 NGT Last administered on 05/18/19 08:44; Admin Dose 50 MG; Start 05/18/19 at 08:00 Tramadol HCl (Ultram) 50 mg Q6H PRN NGT MODERATE PAIN LEVEL 4-6; Start 05/18/19 at 11:00 ROHIT CHAWLA NP May 18, 2019 11:49
[2019-05-18] MEDS: traMADol 50 MG TAB NGT PRN ×2 (12:01→18:15)
--- NOTE | 2019-05-18 12:10 | PN ---
DATE: 05/18/2019 SUBJECTIVE: The patient is stable. Patient remains on Cardene drip. The patient had excellent urin piyush output after diuretics. No other events noted. No hemoptysis, hematemesis, hematochezia. OBJECTIVE: VITAL SIGNS: Blood pressure is 147/81, respirations 19, pulse 71, temperature 98.6. HEENT: Head is normocephalic. NECK: Supple. HEART: Regular rate. LUNGS: Show diminished breath sounds at the base. ABDOMEN: Soft, nontender to palpation without rebound or guarding. EXTREMITIES: Negative for clubbing, cyanosis. Positive edema. DERMATOLOGIC: No rashes. MUSCULOSKELETAL: No joint effusion. NEUROLOGIC: No change in exam. MEDICATIONS: The patient's medications have been reviewed. LABORATORY DATA: Has been reviewed. IMAGING STUDIES: Have been reviewed. ASSESSMENT AND PLAN: 1. Nonoliguric acute kidney injury with previous baseline creatinine 0.72 mg/dL. Etiology of acute kidney injury is secondary to vancomycin nephrotoxicity, hemodynamics. Renal function is improved. Continue current treatment plan, supportive care and renally dose all medications. 2. Volume overload. The patient had excellent response to Lasix. Greater than 4 liters of urinary o utput. Will continue to monitor. Will give intermittent diuretics as needed. 3. Hypokalemia. Continue to monitor and replete. 2. Hypomagnesemia. Will replete with magnesium sulfate 2 grams IV x1. 3. Mineral bone disorder. Monitor calcium and phosphorus levels. 4. Acute encephalopathy, etiology is secondary to acute cerebrovascular accident. Continue to monit or. 5. Hypertensive urgency. The patient remains on Cardene drip. Will continue to adjust blood pressu re medications. Increase Aldactone. 6. Respiratory failure, status post extubation. Continue to monitor. 7. History of CVA with hematoma. Continue medical management. 8. Tachyarrhythmia. 9. SIRS. Continue to monitor. 10. Hyponatremia, improved. Dictated By: AMELIA NUÑEZ/NTS Conf#: [id number] DID#: [id number] CC: DAMIEN CHOUDHARY; FABRICE DELATORRE MD;*EndCC*
[2019-05-18] MEDS: FAMOTIDINE 20 MG TAB NGT SCH (20:39)
[2019-05-18] MEDS: ATORVASTATIN 80 MG TAB NGT SCH (20:39)
[2019-05-18] MEDS: INSULIN GLARGINE [LANTus] (100 UNITS/ML) SYG SC SCH (20:42)
[2019-05-19] VITALS (85 sets, daily range): BP systolic 90–205; BP diastolic 76–119; PULSE 57–115; RESP 18–36
[2019-05-19] MEDS ORDERED: ACETAMINOPHEN 650MG/20.3ML CUP NGT PRN
[2019-05-19] MEDS: INSULIN ASPART [NOVOLOG] 3 ML PEN SC SCH ×6 (00:11→21:21)
[2019-05-19] MEDS: NIFEdipine 10 MG CAP NGT SCH ×4 (00:12→17:22)
[2019-05-19] MEDS: hydrALAzine 20 MG INJ IV PRN ×3 (01:43→15:17)
[2019-05-19] MEDS: SPIRONOLACTONE 25 MG TAB NGT SCH (05:07)
[2019-05-19] MEDS: niCARdipine 50 MG in SOD CHLORIDE 0.9% 480 ML IV SCH ×4 (07:31→22:57)
[2019-05-19] MEDS ORDERED: FUROSEMIDE 20 MG INJ IV ONE (08:00)
[2019-05-19] MEDS ORDERED: POTASSIUM CHLORIDE 20 MEQ POWDER FOR ORAL SOLN GTB ONE (08:00)
[2019-05-19] MEDS: traMADol 50 MG TAB NGT PRN ×2 (08:27→16:18)
[2019-05-19] MEDS: LISINOPRIL 20 MG TAB GTB SCH ×2 (08:28→21:19)
[2019-05-19] MEDS: METOPROLOL 100 MG TAB NGT SCH ×2 (08:28→20:09)
[2019-05-19] MEDS: FAMOTIDINE 20 MG TAB NGT SCH ×2 (08:28→20:09)
[2019-05-19] MEDS: ASPIRIN 81 MG TAB NGT SCH (08:30)
--- NOTE | 2019-05-19 09:36 | CONS ---
Assessment/Plan Assessment/Plan Assessment/Plan (Daily) Patient is on nicardipine drip at 12.5 mg/h. Assessment and recommendations; 1. Patient admitted with severe hypertension leading to intracranial bleeding status post self extubation several days ago with stable overall pulmonary status. 2. Severe hypertension, patient still requiring nicardipine drip despite very aggressive antihypertensive regimen. 3. Acute encephalopathy with interval improvement. Continue current supportive care. Wean down nicardipine as tolerated. Consultation Date/Type/Reason Admit Date/Time May 08, 2019 at 23:21 Initial Consult Date 05/10/19 Type of Consult Pulmonary/critical care Patient is a 39-year-old lady who came into the hospital with complaints of nausea vomiting going on for the last 2 days with headache. Upon evaluation patient was extremely hypertensive then developed respiratory failure requiring intubation. Emergent CT imaging of the head was done which is showing in tracranial hemorrhage. Patient has remained completely unresponsive. Was started on propofol drip for tachypnea. Past medical history; 1. Hypertension. Medications; reviewed. Allergies; none. Social history, family history, occupational history not available. Review of system; unable to be obtained. General exam; young female, orally intubated, sedated, currently in no distress. Requesting Provider: DAMIEN CHOUDHARY Date/Time of Note DATE: 05/19/19 TIME: 09:33 24 HR Interval Summary Free Text/Dictation Patient's condition is gradually improving. Mental status is improving. Patient still requiring nicardipine drip for refractory hypertension. General exam; young female, appears overweight. Currently in no distress. Exam/Review of Systems Exam Vitals Vital Signs Date Temp Pulse Resp B/P (MAP) Pulse Ox O2 O2 Flow FiO2 Time Delivery Rate 05/19/19 65 27 145/92 94 Room Air 09:00 (109) 05/19/19 98.5 08:00 05/18/19 21 18:45 05/18/19 2.0 16:54 Intake and Output 05/18/19 05/18/19 05/19/19 1515:00 23:00 07:00 IntakeIntake Total 1197.50 ml 655 ml 580 ml OutputOutput Total 930 ml 1805 ml 2030 ml BalanceBalance 267.50 ml -1150 ml -1450 ml Exam HEENT exam; supple neck, no JVD. No lymphadenopathy. Midline trachea. No thyromegaly. Patient has good dentition. There is reduction in bilateral subconjunctival edema. Chest exam; clear to auscultation. S1-S2 audible, no murmurs. Regular rhythm. Abdomen exam; soft, no organomegaly. Mildly protuberant. Nontender. Bowel sounds audible. Extremity exam; no peripheral edema. [employer] exam; patient awake and now follows simple commands. Results Result Diagram: 05/18/19 0455 05/19/19 0511 Results 24hrs Laboratory Tests Test 05/18/19 13:06 05/18/19 17:48 05/18/19 20:38 05/19/19 00:11 Bedside Glucose 154 128 120 135 Test 05/19/19 05:11 05/19/19 05:15 05/19/19 08:26 Sodium Level 142 Potassium Level 3.8 Chloride Level 103 Carbon Dioxide Level 28 Anion Gap 11 Blood Urea Nitrogen 15 Creatinine 0.75 Est Glomerular > 60 Filtrat Rate mL/min Glucose Level 154 Calcium Level 9.4 Phosphorus Level 3.6 Magnesium Level 1.8 Bedside Glucose 135 151 Medications Medication Current Medications IV Flush (NS 3 ml) 3 ml PER PROTOCOL IV ; Start 05/09/19 at 00:00 Ondansetron HCl (Zofran Inj) 4 mg Q6H PRN IV NAUSEA/VOMITING; Start 05/09/19 at 00:00 Acetaminophen/ Hydrocodone Bitart ([place] (5/325)) 1 tab Q6H PRN PO .MOD PAIN 4- 6; Start 05/09/19 at 00:00 Morphine Sulfate (morphine) 2 mg Q4H PRN IV .SEVERE PAIN 7-10 Last administered on 05/18/19at 04:11; Admin Dose 2 MG; Start 05/09/19 at 00:00 Docusate Sodium (Colace) 100 mg Q12H PRN PO .CONSTIPATION; Start 05/09/19 at 00:00 Magnesium Hydroxide (Milk Of Mag) 30 ml DAILY PRN PO .CONSTIPATION; Start 05/09/19 at 00:00 Hydralazine HCl (Apresoline) 10 mg Q6H PRN IV ELEVATED BLOOD PRESSURE Last administered on 05/19/19at 08:04; Admin Dose 10 MG; Start 05/09/19 at 00:00 Nitroglycerin (Nitroglycerin (Sl Tab) 0.4 Mg) 1 tab Q5M PRN SL ANGINA; Start at 00:00 Labetalol HCl (Labetalol) 10 mg Q6H PRN IV sys bp > 160 Last administered on 05/18/19at 17:26; Admin Dose 10 MG; Start 05/09/19 at 05:00 Insulin Aspart (Novolog Insulin Pen) NOVOLOG *MODERATE* ALGORI... Q4 SC Last administered on 05/19/19at 08:41; Admin Dose 2 UNIT; Start 05/09/19 at 18:00 Miscellaneous Information 1 ea NOTE XX ; Start 05/09/19 at 17:00 Glucose (Glutose) 15 gm Q15M PRN PO DECREASED GLUCOSE; Start 05/09/19 at 17:00 Glucose (Glutose) 22.5 gm Q15M PRN PO DECREASED GLUCOSE; Start 05/09/19 at 17:00 Dextrose (D50w Syringe) 25 ml Q15M PRN IV DECREASED GLUCOSE; Start 05/09/19 at 17:00 Dextrose (D50w Syringe) 50 ml Q15M PRN IV DECREASED GLUCOSE; Start 05/09/19 at 17:00 Glucagon (Glucagen) 1 mg Q15M PRN IM DECREASED GLUCOSE; Start 05/09/19 at 17:00 Glucose (Glutose) 15 gm Q15M PRN BUCCAL DECREASED GLUCOSE; Start 05/09/19 at 17:00 Atorvastatin Calcium (Lipitor) 80 mg HS NGT Last administered on 05/18/19at 20:39; Admin Dose 80 MG; Start 05/11/19 at 21:00 Insulin Glargine (Lantus) 10 units DAILY@2000 SC Last administered on 05/18/19at 20:42; Admin Dose 10 UNITS; Start 05/11/19 at 20:00 Lorazepam (Ativan) 2 mg Q6H PRN IV agitation; Start 05/13/19 at 12:00 IV Flush (NS 10 ml) 10 ml PRN PRN IV IV PROTOCOL; Start 05/13/19 at 14:00 Metoprolol Tartrate (Lopressor) 200 mg BID NGT Last administered on 05/19/19at 08:28; Admin Dose 200 MG; Start 05/14/19 at 09:15 Lisinopril (Zestril) 40 mg BID GTB Last administered on 05/19/19 08:28; Admin Dose 40 MG; Start 05/15/19 at 09:00 Aspirin (Aspirin) 81 mg DAILY NGT Last administered on 05/19/19 08:30; Admin D ose 81 MG; Start 05/16/19 at 15:00 Spironolactone (Aldactone) 50 mg DAILY@0600 NGT Last administered on 05/19/19 05:07; Admin Dose 50 MG; Start 05/18/19 at 08:00 Tramadol HCl (Ultram) 50 mg Q6H PRN NGT MODERATE PAIN LEVEL 4-6 Last administered on 05/19/19 08:27; Admin Dose 50 MG; Start 05/18/19 at 11:00 Nicardipine HCl 50 mg/Sodium Chloride 500 ml @ 0 mls/hr TITRATE IV Last administered on 05/19/19 07:31; Admin Dose 75 MLS/HR; Start 05/18/19 at 19:30 Acetaminophen (Tylenol Liquid) 650 mg Q6H PRN NGT .PAIN 1-3 OR TEMP; Start 05/19/19 at 00:00 Famotidine (Pepcid) 20 mg Q12 NGT Last administered on 05/19/19 08:28; Admin Dose 20 MG; Start 05/18/19 at 21:00 Hydralazine HCl (Apresoline) 100 mg Q8 NGT Last administered on 05/19/19 05:07; Admin Dose 100 MG; Start 05/18/19 at 22:00 Nifedipine (Procardia) 10 mg Q6 NGT Last administered on 05/19/19 05:06; Admin Dose 10 MG; Start 05/19/19 at 00:00 JAYSON WASSERMAN May 19, 2019 09:36
--- NOTE | 2019-05-19 09:56 | PN ---
Date/Time of Note Date/Time of Note DATE: 05/19/19 TIME: 09:53 Assessment/Plan VTE Prophylaxis Risk score (from Ns)>0 risk: 11 SCD applied (from [facility] [place]): Yes Pharmacological prophylaxis: NA/contraindicated Pharm contraindication: bleeding Lines/Catheters IV [facility]ter Type (from [facility]): Mid Line Urinary Cath still in place: Yes Reason Cath still needed: urinary retention Assessment/Plan Hospital Course S: Patient had her Cardene drip held for a few hours yesterday, but had to be restarted last night is still presently on it. Still somewhat weak, seen by speech therapy team and other [employer] consultant teams yesterday. Following simple commands, per nursing staff. O: VS - see below PE: Gen: Morbidly obese woman lying supine in bed, lethargic but opening eyes Eyes: Slightly injected conjunctivae. Normal pupils ENT: Normal External Ears, Nose and Mouth. Moist mucous membranes. Neck: No meningismus. No lymphadenopathy. Resp: Clear to auscultation bilaterally. Cardio: Regular rate and rhythm, no murmurs appreciated. Abd: Soft, obese, nondistended, normal bowel sounds Ext: No lower extremity edema bilaterally Neuro: Eyes open spontaneously, tracking. Moving L arm and L leg spontaneously. Moves R leg and R arm to pain. Assessment/Plan: 39-year-old morbidly obese woman with history of HTN who comes in with decreased p.o. intake, lethargy preceded by delirium and nausea and vomiting. 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 #Encephalopathy-slowly improving as patient answers yes/no questions now, MRI brain showed several new and old infarcts concerning for central embolic source. There is a small frontal bleed which may be hemorrhagic infarct- TTE done without evidence of vegetations or thrombus - HIV negative - No concern for infectious meningitis based on LP, patient presently off antibiotics. - Neurology Dr. Laurent following, monitor, follow-up their recommendations - Limit sedation as much as possible, continue PT and OT as much as possible #GARDENIA - Likely due to iatrogenic vancomycin toxicity- Now resolved. - Dr. Haas following, monitor for now #Respiratory failure- Intubated due to poor mental status- Self-extubated 6/16 AM - Currently protecting airway. Monitor cautiously in ICU versus tele bed near nursing station. # Hypertension: Blood pressure still on the high normal range despite 5 p.o. blood pressure medicines and IV Cardene drip still running. Possible secondary hypertension because such as hyperaldosteronism? - Continue current medications - still requiring nicardipene gtt, continue to titrate up PO meds as needed -We will currently ask endocrinology team to further investigate any potential hyperaldosteronism source/etiology of her hypertension. # DVT prophylaxis: SCDs 40 minutes critical care time spent on this patient today. Result Diagram: 05/18/19 0455 05/19/19 0511 Results 24hrs Laboratory Tests Test 05/18/19 13:06 05/18/19 17:48 05/18/19 20:38 05/19/19 00:11 Bedside Glucose 154 128 120 135 Test 05/19/19 05:11 05/19/19 05:15 05/19/19 08:26 Sodium Level 142 Potassium Level 3.8 Chloride Level 103 Carbon Dioxide Level 28 Anion Gap 11 Blood Urea Nitrogen 15 Creatinine 0.75 Est Glomerular > 60 Filtrat Rate mL/min Glucose Level 154 Calcium Level 9.4 Phosphorus Level 3.6 Magnesium Level 1.8 Bedside Glucose 135 151 Exam/Review of Systems Exam Vitals Vital Signs Date Temp Pulse Resp B/P (MAP) Pulse Ox O2 O2 Flow FiO2 Time Delivery Rate 05/19/19 63 32 145/87 95 09:30 (106) 05/19/19 Room Air 09:00 05/19/19 98.5 08:00 05/18/19 21 18:45 05/18/19 2.0 16:54 Intake and Output 05/18/19 05/18/19 05/19/19 1515:00 23:00 07:00 IntakeIntake Total 1197.50 ml 655 ml 580 ml OutputOutput Total 930 ml 1805 ml 2030 ml BalanceBalance 267.50 ml -1150 ml -1450 ml Results Results 24hrs Laboratory Tests Test 05/18/19 13:06 05/18/19 17:48 05/18/19 20:38 05/19/19 00:11 Bedside Glucose 154 128 120 135 Test 05/19/19 05:11 05/19/19 05:15 05/19/19 08:26 Sodium Level 142 Potassium Level 3.8 Chloride Level 103 Carbon Dioxide Level 28 Anion Gap 11 Blood Urea Nitrogen 15 Creatinine 0.75 Est Glomerular > 60 Filtrat Rate mL/min Glucose Level 154 Calcium Level 9.4 Phosphorus Level 3.6 Magnesium Level 1.8 Bedside Glucose 135 151 Medications Medication Current Medications IV Flush (NS 3 ml) 3 ml PER PROTOCOL IV ; Start 05/09/19 at 00:00 Ondansetron HCl (Zofran Inj) 4 mg Q6H PRN IV NAUSEA/VOMITING; Start 05/09/19 at 00:00 Acetaminophen/ Hydrocodone Bitart ([place] (5/325)) 1 tab Q6H PRN PO .MOD PAIN 4-6; Start 05/09/19 at 00:00 Morphine Sulfate (morphine) 2 mg Q4H PRN IV .SEVERE PAIN 7-10 Last administered on 05/18/19at 04:11; Admin Dose 2 MG; Start 05/09/19 at 00:00 Docusate Sodium (Colace) 100 mg Q12H PRN PO .CONSTIPATION; Start 05/09/19 at 00:00 Magnesium Hydroxide (Milk Of Mag) 30 ml DAILY PRN PO .CONSTIPATION; Start 05/09/19 at 00:00 Hydralazine HCl (Apresoline) 10 mg Q6H PRN IV ELEVATED BLOOD PRESSURE Last administered on 05/19/19at 08:04; Admin Dose 10 MG; Start 05/09/19 at 00:00 Nitroglycerin (Nitroglycerin (Sl Tab) 0.4 Mg) 1 tab Q5M PRN SL ANGINA; Start 05/09/19 at 00:00 Labetalol HCl (Labetalol) 10 mg Q6H PRN IV sys bp > 160 Last administered on 05/18/19at 17:26; Admin Dose 10 MG; Start 05/09/19 at 05:00 Insulin Aspart (Novolog Insulin Pen) NOVOLOG *MODERATE* ALGORI... Q4 SC Last administered on 05/19/19at 08:41; Admin Dose 2 UNIT; Start 05/09/19 at 18:00 Miscellaneous Information 1 ea NOTE XX ; Start 05/09/19 at 17:00 Glucose (Glutose) 15 gm Q15M PRN PO DECREASED GLUCOSE; Start 05/09/19 at 17:00 Glucose (Glutose) 22.5 gm Q15M PRN PO DECREASED GLUCOSE; Start 05/09/19 at 17:00 Dextrose (D50w Syringe) 25 ml Q15M PRN IV DECREASED GLUCOSE; Start 05/09/19 at 17:00 Dextrose (D50w Syringe) 50 ml Q15M PRN IV DECREASED GLUCOSE; Start 05/09/19 at 17:00 Glucagon (Glucagen) 1 mg Q15M PRN IM DECREASED GLUCOSE; Start 05/09/19 at 17:00 Glucose (Glutose) 15 gm Q15M PRN BUCCAL DECREASED GLUCOSE; Start 05/09/19 at 17:00 Atorvastatin Calcium (Lipitor) 80 mg HS NGT Last administered on 05/18/19at 20:39; Admin Dose 80 MG; Start 05/11/19 at 21:00 Insulin Glargine (Lantus) 10 units DAILY@2000 SC Last administered on 05/18/19at 20:42; Admin Dose 10 UNITS; Start 05/11/19 at 20:00 Lorazepam (Ativan) 2 mg Q6H PRN IV agitation; Start 05/13/19 at 12:00 IV Flush (NS 10 ml) 10 ml PRN PRN IV IV PROTOCOL; Start 05/13/19 at 14:00 Metoprolol Tartrate (Lopressor) 200 mg BID NGT Last administered on 05/19/19at 08:28; Admin Dose 200 MG; Start 05/14/19 at 09:15 Lisinopril (Zestril) 40 mg BID GTB Last administered on 05/19/19at 08:28; Admin Dose 40 MG; Start 05/15/19 at 09:00 Aspirin (Aspirin) 81 mg DAILY NGT Last administered on 05/19/19at 08:30; Admin Dose 81 MG; Start 05/16/19 at 15:00 Spironolactone (Aldactone) 50 mg DAILY@0600 NGT Last administered on 05/19/19at 05:07; Admin Dose 50 MG; Start 05/18/19 at 08:00 Tramadol HCl (Ultram) 50 mg Q6H PRN NGT MODERATE PAIN LEVEL 4-6 Last administered on 05/19/19at 08:27; Admin Dose 50 MG; Start 05/18/19 at 11:00 Nicardipine HCl 50 mg/Sodium Chloride 500 ml @ 0 mls/hr TITRATE IV Last administered on 05/19/19at 07:31; Admin Dose 75 MLS/HR; Start 05/18/19 at 19:30 Acetaminophen (Tylenol Liquid) 650 mg Q6H PRN NGT .PAIN 1-3 OR TEMP; Start 05/19/19 at 00:00 Famotidine (Pepcid) 20 mg Q12 NGT Last administered on 05/19/19at 08:28; Admin Dose 20 MG; Start 05/18/19 at 21:00 Hydralazine HCl (Apresoline) 100 mg Q8 NGT Last administered on 05/19/19 05:07; Admin Dose 100 MG; Start 05/18/19 at 22:00 Nifedipine (Procardia) 10 mg Q6 NGT Last administered on 05/19/19at 05:06; Admin Dose 10 MG; Start 05/19/19 at 00:00 DAMIEN CHOUDHARY May 19, 2019 09:56
--- NOTE | 2019-05-19 10:16 | PN ---
DATE: 05/19/2019 SUBJECTIVE: The patient remains in serious condition. The patient is on Cardene drip. No other luisa nts noted. OBJECTIVE: VITAL SIGNS: Blood pressure is 174/95, pulse 81, respirations 25. HEENT: Head is normocephalic. NECK: Supple. HEART: Regular rate. LUNGS: Show diminished breath sounds at the base. ABDOMEN: Soft, nontender to palpation without rebound or guarding. EXTREMITIES: Negative for clubbing, cyanosis. Trace edema. DERMATOLOGIC: No rashes. MUSCULOSKELETAL: No joint effusion. NEUROLOGIC: No change in exam. MEDICATIONS: Reviewed. LABORATORY DATA: Reviewed. ASSESSMENT AND PLAN: 1. Nonoliguric acute kidney injury with previous baseline creatinine of 0.72 mg/dL. Etiology of acu te kidney injury is secondary to vancomycin nephrotoxicity, hemodynamics. Renal function is improved . Continue current treatment plan, supportive care, renally dose all medications. 2. Volume overload. The patient had excellent response to Lasix. We will give another dose of IV L asix. Monitor I's and O's and electrolytes closely. 3. Hypokalemia, improved. Continue to monitor and replete. 4. Hypomagnesemia. Continue to monitor and replete. 5. Mineral bone disorder, monitor calcium and phosphorus levels. 6. Acute encephalopathy, etiology is secondary to acute CVA. Continue medical management. 7. Hypertensive urgency. The patient is being weaned off Cardene drip. Continue to adjust blood pr essure medications. 8. Respiratory failure, status post extubation. Continue to monitor. 9. 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 Continue medical management. 10. Tachyarrhythmia. 11. Systemic inflammatory response syndrome. 12. Hypernatremia, improved. Dictated By: AMELIA MACKAY DO NR/NTS Conf#: [id number] DID#: [id number] CC: DAMIEN CHOUDHARY; FABRICE DELATORRE MD;*End*
--- NOTE | 2019-05-19 11:05 | CONS ---
Assessment/Plan Assessment/Plan Assessment/Plan (Recall) 39 F c/ reported Hx of DM2, who presents for evaluation of multiple complaints, including GI Sx...and eventual ams, for which neurology is consulted. 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 The clinical picture was initially concerning for meningoencephalitis..CSF evaluation is inconsistent w/ infection...the erythrocytosis possibly due to a traumatic tap.. Head CT was notable for a left frontal hyperdensity, likely hemorrhagic t ransformation of an above referenced focus of acute ischemia is the context of severe hypertension.. CTA head and neck is negative for multifocal stenoses, which might otherwise suggests vasculitis, etc. TTE is unrevealing EEG was without epileptiform activity Ammonia wnl, HIV/RPR neg, ESR wnl Hypercoagulability panel is in progress, so far negative.. P Continue asa for secondary stroke prevention Consider SOFIA for further characterization Continued BP control to goal normotension PT/OT/ST when able Continue to hold all sedating medications where possible Other management and supportive care per primary Will follow clinically Consultation Date/Type/Reason Admit Date/Time May 08, 2019 at 23:21 Type of Consult Neurology Reason for Consultation ams Requesting Provider: DAMIEN CHOUDHARY Date/Time of Note DATE: 05/19/19 TIME: 11:04 24 HR Interval Summary Free Text/Dictation Continues icu care Exam/Review of Systems Exam Vitals Vital Signs Date Temp Pulse Resp B/P (MAP) Pulse Ox O2 O2 Flow FiO2 Time Delivery Rate 05/19/19 64 24 144/94 94 Room Air 10:00 (111) 05/19/19 98.5 08:00 05/18/19 21 18:45 05/18/19 2.0 16:54 Intake and Output 05/18/19 05/18/19 05/19/19 1515:00 23:00 07:00 IntakeIntake Total 1197.50 ml 655 ml 580 ml OutputOutput Total 930 ml 1805 ml 2030 ml BalanceBalance 267.50 ml -1150 ml -1450 ml Results Result Diagram: 05/18/19 0455 05/19/19 0511 Results 24hrs Laboratory Tests Test 05/18/19 13:06 05/18/19 17:48 05/18/19 20:38 05/19/19 00:11 Bedside Glucose 154 128 120 135 Test 05/19/19 05:11 05/19/19 05:15 05/19/19 08:26 Sodium Level 142 Potassium Level 3.8 Chloride Level 103 Carbon Dioxide Level 28 Anion Gap 11 Blood Urea Nitrogen 15 Creatinine 0.75 Est Glomerular > 60 Filtrat Rate mL/min Glucose Level 154 Calcium Level 9.4 Phosphorus Level 3.6 Magnesium Level 1.8 Bedside Glucose 135 151 Medications Medication Current Medications IV Flush (NS 3 ml) 3 ml PER PROTOCOL IV ; Start 05/09/19 at 00:00 Ondansetron HCl (Zofran Inj) 4 mg Q6H PRN IV NAUSEA/VOMITING; Start 05/09/19 at 00:00 Acetaminophen/ Hydrocodone Bitart ([place] (5/325)) 1 tab Q6H PRN PO .MOD PAIN 4- 6; Start 05/09/19 at 00:00 Morphine Sulfate (morphine) 2 mg Q4H PRN IV .SEVERE PAIN 7-10 Last administered on 05/18/19at 04:11; Admin Dose 2 MG; Start 05/09/19 at 00:00 Docusate Sodium (Colace) 100 mg Q12H PRN PO .CONSTIPATION; Start 05/09/19 at 00:00 Magnesium Hydroxide (Milk Of Mag) 30 ml DAILY PRN PO .CONSTIPATION; Start 05/09/19 at 00:00 Hydralazine HCl (Apresoline) 10 mg Q6H PRN IV ELEVATED BLOOD PRESSURE Last administered on 05/19/19at 08:04; Admin Dose 10 MG; Start 05/09/19 at 00:00 Nitroglycerin (Nitroglycerin (Sl Tab) 0.4 Mg) 1 tab Q5M PRN SL ANGINA; Start 05/09/19 at 00:00 Labetalol HCl (Labetalol) 10 mg Q6H PRN IV sys bp > 160 Last administered on 05/18/19at 17:26; Admin Dose 10 MG; Start 05/09/19 at 05:00 Insulin Aspart (Novolog Insulin Pen) NOVOLOG *MODERATE* ALGORI... Q4 SC Last administered on 05/19/19at 08:41; Admin Dose 2 UNIT; Start 05/09/19 at 18:00 Miscellaneous Information 1 ea NOTE XX ; Start 05/09/19 at 17:00 Glucose (Glutose) 15 gm Q15M PRN PO DECREASED GLUCOSE; Start 05/09/19 at 17:00 Glucose (Glutose) 22.5 gm Q15M PRN PO DECREASED GLUCOSE; Start 05/09/19 at 17:00 Dextrose (D50w Syringe) 25 ml Q15M PRN IV DECREASED GLUCOSE; Start 05/09/19 at 17:00 Dextrose (D50w Syringe) 50 ml Q15M PRN IV DECREASED GLUCOSE; Start 05/09/19 at 17:00 Glucagon (Glucagen) 1 mg Q15M PRN IM DECREASED GLUCOSE; Start 05/09/19 at 17:00 Glucose (Glutose) 15 gm Q15M PRN BUCCAL DECREASED GLUCOSE; Start 05/09/19 at 17:00 Atorvastatin Calcium (Lipitor) 80 mg HS NGT Last administered on 05/18/19at 20:39; Admin Dose 80 MG; Start 05/11/19 at 21:00 Insulin Glargine (Lantus) 10 units DAILY@2000 SC Last administered on 05/18/19at 20:42; Admin Dose 10 UNITS; Start 05/11/19 at 20:00 Lorazepam (Ativan) 2 mg Q6H PRN IV agitation; Start 05/13/19 at 12:00 IV Flush (NS 10 ml) 10 ml PRN PRN IV IV PROTOCOL; Start 05/13/19 at 14:00 Metoprolol Tartrate (Lopressor) 200 mg BID NGT Last administered on 05/19/19at 08:28; Admin Dose 200 MG; Start 05/14/19 at 09:15 Lisinopril (Zestril) 40 mg BID GTB Last administered on 05/19/19at 08:28; Admin Dose 40 MG; Start 05/15/19 at 09:00 Aspirin (Aspirin) 81 mg DAILY NGT Last administered on 05/19/19at 08:30; Admin Dose 81 MG; Start 05/16/19 at 15:00 Spironolactone (Aldactone) 50 mg DAILY@0600 NGT Last administered on 05/19/19at 05:07; Admin Dose 50 MG; Start 05/18/19 at 08:00 Tramadol HCl (Ultram) 50 mg Q6H PRN NGT MODERATE PAIN LEVEL 4-6 Last administered on 05/19/19 08:27; Admin Dose 50 MG; Start 05/18/19 at 11:00 Nicardipine HCl 50 mg/Sodium Chloride 500 ml @ 0 mls/hr TITRATE IV Last administered on 05/19/19 07:31; Admin Dose 75 MLS/HR; Start 05/18/19 at 19:30 Acetaminophen (Tylenol Liquid) 650 mg Q6H PRN NGT .PAIN 1-3 OR TEMP; Start 05/19/19 at 00:00 Famotidine (Pepcid) 20 mg Q12 NGT Last administered on 05/19/19 08:28; Admin Dose 20 MG; Start 05/18/19 at 21:00 Hydralazine HCl (Apresoline) 100 mg Q8 NGT Last administered on 05/19/19 05:07; Admin Dose 100 MG; Start 05/18/19 at 22:00 Nifedipine (Procardia) 10 mg Q6 NGT Last administered on 05/19/19 05:06; Admin Dose 10 MG; Start 05/19/19 at 00:00 JOSÉ TORO 20, 2019 11:05
[2019-05-19] MEDS: LABETALOL HCL 20MG INJ IV PRN ×2 (13:00→20:07)
--- NOTE | 2019-05-19 14:03 | QN ---
Documentation Comment Endocrinology. I am getting basic work-up started however I cannot do the evaluation for primary hyperaldosteronism as the patient's been given spironolactone for 2 doses and will throw off the testing. However evaluation for other secondary causes including pheochromocytoma should proceed. We can presumptively make an estimate about hyperaldosteronism by using a higher dose of the spironolactone and see if that helps bring the patient's pressure under control. VALENTINO MAYER MD May 19, 2019 14:03
--- NOTE | 2019-05-19 17:23 | CONS ---
Assessment/Plan Assessment/Plan Problems: (1) Hypertension Status: Chronic Comment: The ability to evaluate for hyperaldosteronism is thrown off by having received 2 dosages of Spironolactone. As such we can only deal with this presumptively at this time she would need to be off spironolactone for roughly 5 to 6 weeks before we can do the studies. 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 As such and can go ahead and push that up. In the meantime I am also going to evaluate for the possibility of pheochromocytoma-paraganglioma although I doubt this. Another issue could be artery stenosis. The patient is on an BETO inhibitor and one might presume that would show off by having effect on the serum creatinine but that is not an absolute. It may be an idea to p therese looking at the renal arteries if none of the other issues and work-up busch out. I am going to go ahead and add an alpha blockade to help with the blood pressure which in the case of pheochromocytoma should also have a very nice effect. Qualifiers: Qualified Codes: I10 - Essential (primary) hypertension (2) Hypokalemia Status: Chronic Comment: Presently corrected (3) Altered level of consciousness Status: Acute Comment: Due to multiple small infarcts. Neurology is assisting in guiding with this. Please note the negative HIV study, negative RPR, and the results of the spinal tap (4) Grade II diastolic dysfunction Status: Chronic Comment: Control blood pressure and pulse (5) Hemorrhagic cerebrovascular accident (CVA) Onset Date: ~ 05/08/2019 Status: Acute Comment: Noted. (6) Morbid obesity with BMI of 45.0-49.9, adult Status: Chronic Comment: Noted. Presently she is receiving her nutrition via tube feedings were doing a calorie controlled approach (7) Diabetes mellitus type 2 in obese Status: Chronic Comment: Adequate control at this time (8) Acute kidney injury Status: Resolved Comment: Resolved back to baseline (9) Deep venous thrombosis of left upper extremity Status: Acute Comment: As per primary team Qualifiers: (10) Hyperlipidemia Status: Chronic Comment: Statin therapy at full dose Qualifiers: Qualified Codes: E78.00 - Pure hypercholesterolemia, unspecified Consultation Date/Type/Reason Admit Date/Time May 08, 2019 at 23:21 Date of Consultation: May 19, 2019 Type of Consult Endocrinology Reason for Consultation Recalcitrant hypertension presenting with hypokalemia Requesting Provider: DAMIEN CHOUDHARY Date/Time of Note DATE: 05/19/19 TIME: 17:14 Hx of Present Illness 39-year-old female admitted on 08 May with multiple CVAs with left frontal lobe hemorrhagic conversion. She initially had respiratory failure requiring intubation and mechanical ventilation which she came off of somewhere around 15 May. I am not able to get any type of meaningful history from her. She did have acute renal insufficiency which is stabilized nicely now. She has been given Spironolactone the last 2 days. Subjective hx not possible: pt non-verbal Past Medical History Medical History: diabetes, high cholesterol, hypertension, other (Acute altered level of consciousness--encephalopathy; acute kidney injury clearing; grade 2 diastolic dysfunction; morbid obesity; acute multifocal cerebrovascular accident with negative RPR, negative transthoracic echocardiogram with bubble study,) Home Meds Reported Medications Lisinopril* (Lisinopril*) 20 Mg Tablet, 20 MG PO BID, #30 TAB 05/09/19 Hydralazine Hcl* (Hydralazine Hcl*) 100 Mg Tablet, 100 MG PO Q8, #90 TAB 05/09/19 Glimepiride* (Glimepiride*) 2 Mg Tablet, 2 MG PO WITH BREAKFAST, TAB 05/09/19 Metformin Hcl* (Metformin Hcl*) 1,000 Mg Tablet, 1000 MG PO WITH BREAKFAST DINNE, #60 TAB 05/09/19 Famotidine* (Famotidine*) 20 Mg Tablet, 20 MG PO BID, #60 TAB 05/09/19 Medications Current Medications IV Flush (NS 3 ml) 3 ml PER PROTOCOL IV ; Start 05/09/19 at 00:00 Ondansetron HCl (Zofran Inj) 4 mg Q6H PRN IV NAUSEA/VOMITING; Start 05/09/19 at 00:00 Acetaminophen/ Hydrocodone Bitart ([place] (5/325)) 1 tab Q6H PRN PO .MOD PAIN 4- 6; Start 05/09/19 at 00:00 Morphine Sulfate (morphine) 2 mg Q4H PRN IV .SEVERE PAIN 7-10 Last administered on 05/18/19at 04:11; Admin Dose 2 MG; Start 05/09/19 at 00:00 Docusate Sodium (Colace) 100 mg Q12H PRN PO .CONSTIPATION; Start 05/09/19 at 00:00 Magnesium Hydroxide (Milk Of Mag) 30 ml DAILY PRN PO .CONSTIPATION; Start 05/09/19 at 00:00 Hydralazine HCl (Apresoline) 10 mg Q6H PRN IV ELEVATED BLOOD PRESSURE Last administered on 05/19/19at 15:17; Admin Dose 10 MG; Start 05/09/19 at 00:00 Nitroglycerin (Nitroglycerin (Sl Tab) 0.4 Mg) 1 tab Q5M PRN SL ANGINA; Start 05/09/19 at 00:00 Labetalol HCl (Labetalol) 10 mg Q6H PRN IV sys bp > 160 Last administered on 05/19/19at 13:00; Admin Dose 10 MG; Start 05/09/19 at 05:00 Insulin Aspart (Novolog Insulin Pen) NOVOLOG *MODERATE* ALGORI... Q4 SC Last administered on 05/19/19at 12:28; Admin Dose 2 UNIT; Start 05/09/19 at 18:00 Miscellaneous Information 1 ea NOTE XX ; Start 05/09/19 at 17:00 Glucose (Glutose) 15 gm Q15M PRN PO DECREASED GLUCOSE; Start 05/09/19 at 17:00 Glucose (Glutose) 22.5 gm Q15M PRN PO DECREASED GLUCOSE; Start 05/09/19 at 17:00 Dextrose (D50w Syringe) 25 ml Q15M PRN IV DECREASED GLUCOSE; Start 05/09/19 at 17:00 Dextrose (D50w Syringe) 50 ml Q15M PRN IV DECREASED GLUCOSE; Start 05/09/19 at 17:00 Glucagon (Glucagen) 1 mg Q15M PRN IM DECREASED GLUCOSE; Start 05/09/19 at 17:00 Glucose (Glutose) 15 gm Q15M PRN BUCCAL DECREASED GLUCOSE; Start 05/09/19 at 17 :00 Atorvastatin Calcium (Lipitor) 80 mg HS NGT Last administered on 05/18/19at 20:39; Admin Dose 80 MG; Start 05/11/19 at 21:00 Insulin Glargine (Lantus) 10 units DAILY@2000 SC Last administered on 05/18/19 20:42; Admin Dose 10 UNITS; Start 05/11/19 at 20:00 Lorazepam (Ativan) 2 mg Q6H PRN IV agitation; Start 05/13/19 at 12:00 IV Flush (NS 10 ml) 10 ml PRN PRN IV IV PROTOCOL; Start 05/13/19 at 14:00 Metoprolol Tartrate (Lopressor) 200 mg BID NGT Last administered on 05/19/19 08:28; Admin Dose 200 MG; Start 05/14/19 at 09:15 Lisinopril (Zestril) 40 mg BID GTB Last administered on 05/19/19 08:28; Admin Dose 40 MG; Start 05/15/19 at 09:00 Aspirin (Aspirin) 81 mg DAILY NGT Last administered on 05/19/19 08:30; Admin Dose 81 MG; Start 05/16/19 at 15:00 Tramadol HCl (Ultram) 50 mg Q6H PRN NGT MODERATE PAIN LEVEL 4-6 Last administered on 05/19/19 16:18; Admin Dose 50 MG; Start 05/18/19 at 11:00 Nicardipine HCl 50 mg/Sodium Chloride 500 ml @ 0 mls/hr TITRATE IV Last administered on 05/19/19 14:01; Admin Dose 125 MLS/HR; Start 05/18/19 at 19:30 Acetaminophen (Tylenol Liquid) 650 mg Q6H PRN NGT .PAIN 1-3 OR TEMP; Start 05/19/19 at 00:00 Famotidine (Pepcid) 20 mg Q12 NGT Last administered on 05/19/19 08:28; Admin Dose 20 MG; Start 05/18/19 at 21:00 Hydralazine HCl (Apresoline) 100 mg Q8 NGT Last administered on 05/19/19 14:01; Admin Dose 100 MG; Start 05/18/19 at 22:00 Nifedipine (Procardia) 10 mg Q6 NGT Last administered on 05/19/19 12:28; Admin Dose 10 MG; Start 05/19/19 at 00:00 Spironolactone (Aldactone) 100 mg BID NGT ; Start 05/19/19 at 21:00 Doxazosin Mesylate (Cardura) 1 mg HS NGT ; Start 05/19/19 at 21:00 Allergies: Coded Allergies: No Known Allergy (Unverified , 05/09/19) Past Surgical History Past Surgical Hx: noncontributory Family History Significant Family History: diabetes Social History Alcohol Use: other (Unknown) Smoking Status: Unknown if ever smoked Exam/Review of Systems Exam Vitals Vital Signs Date Temp Pulse Resp B/P (MAP) Pulse Ox O2 O2 Flow FiO2 Time Delivery Rate 05/19/19 71 29 174/83 96 Room Air 17:00 (113) 05/19/19 98.4 16:00 05/18/19 21 18:45 05/18/19 2.0 16:54 Intake and Output 05/18/19 05/18/19 05/19/19 1515:00 23:00 07:00 IntakeIntake Total 1197.50 ml 655 ml 580 ml OutputOutput Total 930 ml 1805 ml 2030 ml BalanceBalance 267.50 ml -1150 ml -1450 ml Exam Patient grunts at me and looks at me but does not attend to the questions or respond following directions Constitutional: non-verbal Head: normocephalic, atraumatic ENMT: other (NG tube in place) Respiratory: clear to auscultation, normal air movement Gastrointestinal: soft, nl liver, spleen, non-tender Results Result Diagram: 05/18/19 0455 05/19/19 0511 Results 24hrs Laboratory Tests Test 05/18/19 17:48 05/18/19 20:38 05/19/19 00:11 05/19/19 05:11 Bedside Glucose 128 120 135 Sodium Level 142 Potassium Level 3.8 Chloride Level 103 Carbon Dioxide Level 28 Anion Gap 11 Blood Urea Nitrogen 15 Creatinine 0.75 Est Glomerular > 60 Filtrat Rate mL/min Glucose Level 154 Calcium Level 9.4 Phosphorus Level 3.6 Magnesium Level 1.8 Test 05/19/19 05:15 05/19/19 08:26 05/19/19 12:27 Bedside Glucose 135 151 148 Medications Medication Current Medications IV Flush (NS 3 ml) 3 ml PER PROTOCOL IV ; Start 05/09/19 at 00:00 Ondansetron HCl (Zofran Inj) 4 mg Q6H PRN IV NAUSEA/VOMITING; Start 05/09/19 at 00:00 Acetaminophen/ Hydrocodone Bitart ([place] (5/325)) 1 tab Q6H PRN PO .MOD PAIN 4- 6; Start 05/09/19 at 00:00 Morphine Sulfate (morphine) 2 mg Q4H PRN IV .SEVERE PAIN 7-10 Last administered on 05/18/19at 04:11; Admin Dose 2 MG; Start 05/09/19 at 00:00 Docusate Sodium (Colace) 100 mg Q12H PRN PO .CONSTIPATION; Start 05/09/19 at 00:00 Magnesium Hydroxide (Milk Of Mag) 30 ml DAILY PRN PO .CONSTIPATION; Start 05/09/19 at 00:00 Hydralazine HCl (Apresoline) 10 mg Q6H PRN IV ELEVATED BLOOD PRESSURE Last administered on 05/19/19at 15:17; Admin Dose 10 MG; Start 05/09/19 at 00:00 Nitroglycerin (Nitroglycerin (Sl Tab) 0.4 Mg) 1 tab Q5M PRN SL ANGINA; Start 05/09/19 at 00:00 Labetalol HCl (Labetalol) 10 mg Q6H PRN IV sys bp > 160 Last administered on 05/19/19at 13:00; Admin Dose 10 MG; Start 05/09/19 at 05:00 Insulin Aspart (Novolog Insulin Pen) NOVOLOG *MODERATE* ALGORI... Q4 SC Last administered on 05/19/19at 12:28; Admin Dose 2 UNIT; Start 05/09/19 at 18:00 Miscellaneous Information 1 ea NOTE XX ; Start 05/09/19 at 17:00 Glucose (Glutose) 15 gm Q15M PRN PO DECREASED GLUCOSE; Start 05/09/19 at 17:00 Glucose (Glutose) 22.5 gm Q15M PRN PO DECREASED GLUCOSE; Start 05/09/19 at 17:00 Dextrose (D50w Syringe) 25 ml Q15M PRN IV DECREASED GLUCOSE; Start 05/09/19 at 17:00 Dextrose (D50w Syringe) 50 ml Q15M PRN IV DECREASED GLUCOSE; Start 05/09/19 at 17:00 Glucagon (Glucagen) 1 mg Q15M PRN IM DECREASED GLUCOSE; Start 05/09/19 at 17:00 Glucose (Glutose) 15 gm Q15M PRN BUCCAL DECREASED GLUCOSE; Start 05/09/19 at 17:00 Atorvastatin Calcium (Lipitor) 80 mg HS NGT Last administered on 05/18/19 20:39; Admin Dose 80 MG; Start 05/11/19 at 21:00 Insulin Glargine (Lantus) 10 units DAILY@2000 SC Last administered on 05/18/19 20:42; Admin Dose 10 UNITS; Start 05/11/19 at 20:00 Lorazepam (Ativan) 2 mg Q6H PRN IV agitation; Start 05/13/19 at 12:00 IV Flush (NS 10 ml) 10 ml PRN PRN IV IV PROTOCOL; Start 05/13/19 at 14:00 Metoprolol Tartrate (Lopressor) 200 mg BID NGT Last administered on 05/19/19 08:28; Admin Dose 200 MG; Start 05/14/19 at 09:15 Lisinopril (Zestril) 40 mg BID GTB Last administered on 05/19/19 08:28; Admin Dose 40 MG; Start 05/15/19 at 09:00 Aspirin (Aspirin) 81 mg DAILY NGT Last administered on 05/19/19 08:30; Admin Dose 81 MG; Start 05/16/19 at 15:00 Tramadol HCl (Ultram) 50 mg Q6H PRN NGT MODERATE PAIN LEVEL 4-6 Last administered on 05/19/19 16:18; Admin Dose 50 MG; Start 05/18/19 at 11:00 Nicardipine HCl 50 mg/Sodium Chloride 500 ml @ 0 mls/hr TITRATE IV Last administered on 05/19/19 14:01; Admin Dose 125 MLS/HR; Start 05/18/19 at 19:30 Acetaminophen (Tylenol Liquid) 650 mg Q6H PRN NGT .PAIN 1-3 OR TEMP; Start 05/19/19 at 00:00 Famotidine (Pepcid) 20 mg Q12 NGT Last administered on 05/19/19 08:28; Admin Dose 20 MG; Start 05/18/19 at 21:00 Hydralazine HCl (Apresoline) 100 mg Q8 NGT Last administered on 05/19/19 14:01; Admin Dose 100 MG; Start 05/18/19 at 22:00 Nifedipine (Procardia) 10 mg Q6 NGT Last administered on 6/20/19at 12:28; Admin Dose 10 MG; Start 05/19/19 at 00:00 Spironolactone (Aldactone) 100 mg BID NGT ; Start 05/19/19 at 21:00 Doxazosin Mesylate (Cardura) 1 mg HS NGT ; Start 05/19/19 at 21:00 VALENTINO MAYER MD May 19, 2019 17:23
[2019-05-19] MEDS ORDERED: DOXAZOSIN 1 MG TAB NGT ONE (17:30)
[2019-05-19] MEDS: ATORVASTATIN 80 MG TAB NGT SCH (20:09)
[2019-05-19] MEDS: INSULIN GLARGINE [LANTus] (100 UNITS/ML) SYG SC SCH (20:11)
[2019-05-19] MEDS: HYDROCODONE/APAP (5/325) TAB PO PRN (20:21)
[2019-05-19] MEDS ORDERED: DOXAZOSIN 1 MG TAB NGT SCH (21:00)
[2019-05-19] MEDS: SPIRONOLACTONE 50 MG TAB NGT SCH (21:23)
[2019-05-20] VITALS (86 sets, daily range): BP systolic 102–177; BP diastolic 38–140; PULSE 55–86; RESP 17–35
[2019-05-20] MEDS: NIFEdipine 10 MG CAP NGT SCH ×4 (00:51→17:48)
[2019-05-20] MEDS: INSULIN ASPART [NOVOLOG] 3 ML PEN SC SCH ×6 (00:53→20:41)
[2019-05-20] MEDS: HYDROCODONE/APAP (5/325) TAB PO PRN (02:18)
[2019-05-20] MEDS: niCARdipine 50 MG in SOD CHLORIDE 0.9% 480 ML IV SCH ×3 (06:06→21:59)
--- NOTE | 2019-05-20 08:33 | PN ---
DATE: 05/20/2019 SUBJECTIVE: The patient is stable, remains on Cardene drip. No other events noted. OBJECTIVE: VITAL SIGNS: Blood pressure is 129/81, respiration 21, pulse 66, temperature 98.6. HEENT: Head is normocephalic. NECK: Supple. HEART: Regular rate. LUNGS: Show diminished breath sounds at the base. ABDOMEN: Soft, nontender to palpation without rebound or guarding. EXTREMITIES: Negative for clubbing, cyanosis. Trace edema. DERMATOLOGIC: No rashes. MUSCULOSKELETAL: No joint effusions. NEUROLOGIC: No change in exam. MEDICATIONS: The patient's medications have been reviewed. LABORATORY DATA: Has been reviewed. ASSESSMENT AND PLAN: 1. Nonoliguric acute kidney injury with previous baseline creatinine of 0.72 mg/dL. Etiology of acu te kidney injury is secondary to nephrotoxicity, hemodynamics. Renal function has improved. Continu e current treatment plans, supportive care, renally dose all meds. 2. Volume overload. Continue intermittent diuretic therapy as needed. Monitor I's and O's closely. 3. Hyperkalemia, improved. 4. Hypomagnesemia, improved. Continue to monitor. 5. Mineral bone disorder. Monitor calcium and phosphorus levels. 6. Acute encephalopathy. Etiology is secondary to acute cerebrovascular accident. Continue medical management. 7. Hypertensive urgency. The patient is being evaluated for possible secondary etiology of hyperten mehnaz. Continue to wean off Cardene drip. Continue to adjust blood pressure medications. 8. Respiratory failure, status post extubation. Continue to monitor. 9. History of cerebrovascular accident with frontal hematoma. Continue medical management. 10. Tachyarrhythmia. 11. Systemic inflammatory response syndrome. 11. Hypernatremia, improved. Dictated By: AMELIA NUÑEZ/NTS Conf#: [id number] DID#: [id number] CC: DAMIEN CHOUDHARY;*EndCC*
--- NOTE | 2019-05-20 09:05 | PN ---
Date/Time of Note Date/Time of Note DATE: 05/20/19 TIME: 09:02 Assessment/Plan VTE Prophylaxis Risk score (from Nsg)>0 risk: 10 SCD applied (from Nsg): Yes Pharmacological prophylaxis: other Lines/Catheters IV Catheter Type (from Nrsg): Mid Line Urinary Cath still in place: Yes Reason Cath still needed: urinary retention Assessment/Plan Hospital Course S: Patient a bit more awake and alert today, still overall lethargic but answering simple questions. Blood pressure slightly improved since adjustments made to the regimen yesterday. Still on the Cardene drip however. O: VS - see below PE: Gen: Morbidly obese woman lying supine in bed, lethargic answering questions a bit better today Eyes: Slightly injected conjunctivae. Normal pupils ENT: Normal External Ears, Nose and Mouth. Moist mucous membranes. Neck: No meningismus. No lymphadenopathy. Resp: Clear to auscultation bilaterally. Cardio: Regular rate and rhythm, no murmurs appreciated. Abd: Soft, obese, nondistended, normal bowel sounds Ext: No lower extremity edema bilaterally Neuro: In restraints, but no focal deficits Assessment/Plan: 39-year-old morbidly obese woman with history of HTN who comes in with decreased p.o. intake, lethargy preceded by delirium and nausea and vomiting. 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 #Encephalopathy-slowly improving as patient answers slightly more questions now in [place], MRI brain showed several new and old infarcts concerning for central embolic source. There is a small frontal bleed which may be hemorrhagic infarct- TTE done without evidence of vegetations or thrombus - HIV negative - No concern for infectious meningitis based on LP, patient presently off antibiotics. - Neurology Dr. Laurent following, monitor, follow-up their recommendations - Limit sedation as much as possible, continue PT and OT as much as possible #GARDENIA - Likely due to iatrogenic vancomycin toxicity- Now resolved. - Dr. Haas following, monitor for now #Respiratory failure- Intubated due to poor mental status- Self-extubated 6/16 AM - Currently protecting airway. Monitor cautiously in ICU versus tele bed near nursing station. # Hypertension: Slightly improved since yesterday with adjustments made to the dosages and new p.o. regimen added. Still on the Cardene drip. Appreciate endocrinology consult, we are currently working her up for possible etiology of secondary hypertension such as hyperaldosteronism, also considering pheochromocytoma and renal artery stenosis (although these are less likely). - Continue current medications p.o. including now alpha blockade-also still requiring nicardipene gtt, try to wean this down as tolerated - Follow further recommendations from endocrinology team to further investigate any potential hyperaldosteronism source/etiology of her hypertension. # DVT prophylaxis: SCDs 45 minutes critical care time spent on this patient today. Result Diagram: 05/18/19 0455 05/20/19 0400 Results 24hrs Laboratory Tests Test 05/19/19 12:27 05/19/19 17:23 05/19/19 21:18 05/20/19 00:51 Bedside Glucose 148 176 146 148 Test 05/20/19 04:00 05/20/19 05:02 05/20/19 08:39 Sodium Level 140 Potassium Level 4.3 Chloride Level 101 Carbon Dioxide Level 31 Anion Gap 8 Blood Urea Nitrogen 16 Creatinine 0.79 Est Glomerular > 60 Filtrat Rate mL/min Glucose Level 159 Calcium Level 9.1 Phosphorus Level 4.1 Magnesium Level 1.7 Bedside Glucose 157 149 Exam/Review of Systems Exam Vitals Vital Signs Date Temp Pulse Resp B/P (MAP) Pulse Ox O2 O2 Flow FiO2 Time Delivery Rate 05/20/19 97.8 71 24 145/78 97 Room Air 08:00 (100) 05/18/19 18:45 05/18/19 2.0 16:54 Intake and Output 05/19/19 05/19/19 05/20/19 1515:00 23:00 07:00 IntakeIntake Total 1257.50 ml 1617.5 ml 910 ml OutputOutput Total 3125 ml 1050 ml 1000 ml BalanceBalance -1867.50 ml 567.5 ml -90 ml Results Results 24hrs Laboratory Tests Test 05/19/19 12:27 05/19/19 17:23 05/19/19 21:18 05/20/19 00:51 Bedside Glucose 148 176 146 148 Test 05/20/19 04:00 05/20/19 05:02 05/20/19 08:39 Sodium Level 140 Potassium Level 4.3 Chloride Level 101 Carbon Dioxide Level 31 Anion Gap 8 Blood Urea Nitrogen 16 Creatinine 0.79 Est Glomerular > 60 Filtrat Rate mL/min Glucose Level 159 Calcium Level 9.1 Phosphorus Level 4.1 Magnesium Level 1.7 Bedside Glucose 157 149 Medications Medication Current Medications IV Flush (NS 3 ml) 3 ml PER PROTOCOL IV ; Start 05/09/19 at 00:00 Ondansetron HCl (Zofran Inj) 4 mg Q6H PRN IV NAUSEA/VOMITING; Start 05/09/19 at 00:00 Acetaminophen/ Hydrocodone Bitart ([place] (5/325)) 1 tab Q6H PRN PO .MOD PAIN 4- 6 Last administered on 05/20/19at 02:18; Admin Dose 1 TAB; Start 05/09/19 at 00:00 Morphine Sulfate (morphine) 2 mg Q4H PRN IV .SEVERE PAIN 7-10 Last administered on 05/18/19at 04:11; Admin Dose 2 MG; Start 05/09/19 at 00:00 Docusate Sodium (Colace) 100 mg Q12H PRN PO .CONSTIPATION; Start 05/09/19 at 00:00 Magnesium Hydroxide (Milk Of Mag) 30 ml DAILY PRN PO .CONSTIPATION; Start 05/09/19 at 00:00 Nitroglycerin (Nitroglycerin (Sl Tab) 0.4 Mg) 1 tab Q5M PRN SL ANGINA; Start 05/09/19 at 00:00 Insulin Aspart (Novolog Insulin Pen) NOVOLOG *MODERATE* ALGORI... Q4 SC Last administered on 05/20/19at 08:45; Admin Dose 2 UNIT; Start 05/09/19 at 18:00 Miscellaneous Information 1 ea NOTE XX ; Start 05/09/19 at 17:00 Glucose (Glutose) 15 gm Q15M PRN PO DECREASED GLUCOSE; Start 05/09/19 at 17:00 Glucose (Glutose) 22.5 gm Q15M PRN PO DECREASED GLUCOSE; Start 05/09/19 at 17:00 Dextrose (D50w Syringe) 25 ml Q15M PRN IV DECREASED GLUCOSE; Start 05/09/19 at 17:00 Dextrose (D50w Syringe) 50 ml Q15M PRN IV DECREASED GLUCOSE; Start 05/09/19 at 17:00 Glucagon (Glucagen) 1 mg Q15M PRN IM DECREASED GLUCOSE; Start 05/09/19 at 17:00 Glucose (Glutose) 15 gm Q15M PRN BUCCAL DECREASED GLUCOSE; Start 05/09/19 at 17:00 Atorvastatin Calcium (Lipitor) 80 mg HS NGT Last administered on 05/19/19at 20:09; Admin Dose 80 MG; Start 05/11/19 at 21:00 Insulin Glargine (Lantus) 10 units DAILY@2000 SC Last administered on 05/19/19at 20:11; Admin Dose 10 UNITS; Start 05/11/19 at 20:00 Lorazepam (Ativan) 2 mg Q6H PRN IV agitation; Start 05/13/19 at 12:00 IV Flush (NS 10 ml) 10 ml PRN PRN IV IV PROTOCOL; Start 05/13/19 at 14:00 Metoprolol Tartrate (Lopressor) 200 mg BID NGT Last administered on 05/19/19 20:09; Admin Dose 200 MG; Start 05/14/19 at 09:15 Lisinopril (Zestril) 40 mg BID GTB Last administered on 05/19/19 21:19; Admin Dose 40 MG; Start 05/15/19 at 09:00 Aspirin (Aspirin) 81 mg DAILY NGT Last administered on 05/19/19at 08:30; Admin Dose 81 MG; Start 05/16/19 at 15:00 Tramadol HCl (Ultram) 50 mg Q6H PRN NGT MODERATE PAIN LEVEL 4-6 Last administered on 05/19/19 16:18; Admin Dose 50 MG; Start 05/18/19 at 11:00 Nicardipine HCl 50 mg/Sodium Chloride 500 ml @ 0 mls/hr TITRATE IV Last administered on 05/20/19at 06:06; Admin Dose 100 MLS/HR; Start 05/18/19 at 19:30 Acetaminophen (Tylenol Liquid) 650 mg Q6H PRN NGT .PAIN 1-3 OR TEMP; Start 05/19/19 at 00:00 Famotidine (Pepcid) 20 mg Q12 NGT Last administered on 05/19/19at 20:09; Admin Dose 20 MG; Start 05/18/19 at 21:00 Hydralazine HCl (Apresoline) 100 mg Q8 NGT Last administered on 05/20/19 05:1 3; Admin Dose 100 MG; Start 05/18/19 at 22:00 Nifedipine (Procardia) 10 mg Q6 NGT Last administered on 6/21/19at 05:14; Admin Dose 10 MG; Start 05/19/19 at 00:00 Spironolactone (Aldactone) 100 mg BID NGT Last administered on 05/19/19at 21:23; Admin Dose 100 MG; Start 05/19/19 at 21:00 Doxazosin Mesylate (Cardura) 1 mg HS NGT Last administered on 05/19/19at 20:10; Admin Dose 1 MG; Start 05/19/19 at 21:00 Hydralazine HCl (Apresoline) 10 mg Q4H PRN IV ELEVATED BLOOD PRESSURE; Start 05/19/19 at 20:00 Labetalol HCl (Labetalol) 10 mg Q4H PRN IV sys bp > 160 Last administered on 05/19/19at 20:07; Admin Dose 10 MG; Start 05/19/19 at 17:17 DAMIEN CHOUDHARY May 20, 2019 09:05
[2019-05-20] MEDS: ASPIRIN 81 MG TAB NGT SCH (09:20)
[2019-05-20] MEDS: SPIRONOLACTONE 50 MG TAB NGT SCH ×2 (09:20→20:38)
[2019-05-20] MEDS: FAMOTIDINE 20 MG TAB NGT SCH ×2 (09:21→20:39)
[2019-05-20] MEDS: METOPROLOL 100 MG TAB NGT SCH ×2 (09:21→20:40)
[2019-05-20] MEDS: LISINOPRIL 20 MG TAB GTB SCH ×2 (09:21→20:39)
--- NOTE | 2019-05-20 09:53 | CONS ---
Assessment/Plan Assessment/Plan Assessment/Plan (Daily) Patient is currently on nicardipine drip at 10 mg/h. Assessment and recommendations; 1. Patient admitted with respiratory failure due to intracranial bleed likely hypertensive in etiology with significant overall clinical improvement. Patient not exhibiting any gross focal neurological deficit. 2. Refractory hypertension. Still on nicardipine drip despite very aggressive antihypertensive regimen. 3. Underlying obesity. 4. Status post self extubation several days ago with stable pulmonary status. Continue current supportive care. Wean down nicardipine drip. Patient possibly may need to be evaluated for renal artery stenosis. Consultation Date/Type/Reason Admit Date/Time May 08, 2019 at 23:21 Initial Consult Date 05/10/19 Type of Consult Pulmonary/critical care Patient is a 39-year-old lady who came into the hospital with complaints of nausea vomiting going on for the last 2 days with headache. Upon evaluation patient was extremely hypertensive then developed respiratory failure requiring intubation. Emergent CT imaging of the head was done which is showing intracranial hemorrhage. Patient has remained completely unresponsive. Was started on propofol drip for tachypnea. Past medical history; 1. Hypertension. Medications; reviewed. Allergies; none. Social history, family history, occupational history not available. Review of system; unable to be obtained. General exam; young female, orally intubated, sedated, currently in no distress. Requesting Provider: DAMIEN CHOUDHARY Date/Time of Note DATE: 05/20/19 TIME: 09:51 24 HR Interval Summary Free Text/Dictation Patient's condition is improving. Mental status is markedly improved over the last 24 to 48 hours. Patient still requiring nicardipine drip. For severe hypertension but is improving. General exam; young female, appears overweight. Currently no distress. Exam/Review of Systems Exam Vitals Vital Signs Date Temp Pulse Resp B/P (MAP) Pulse Ox O2 O2 Flow FiO2 Time Delivery Rate 05/20/19 74 29 157/131 95 Room Air 09:30 (140) 05/20/19 97.8 08:00 05/18/19 21 18:45 05/18/19 2.0 16:54 Intake and Output 05/19/19 05/19/19 05/20/19 1515:00 23:00 07:00 IntakeIntake Total 1257.50 ml 1617.5 ml 1010 ml OutputOutput Total 3125 ml 1050 ml 1000 ml BalanceBalance -1867.50 ml 567.5 ml 10 ml Exam H ENT exam; supple neck, no JVD. No lymphadenopathy. Midline trachea. No thyromegaly. There is improvement in bilateral subconjunctival edema. Patient has fair dentition. Chest exam; clear to auscultation. S1-S2 audible, no murmurs. Regular rhythm. Abdomen exam; soft, no organomegaly. Bowel sounds audible. Nontender. Protuberant. Extremity exam; no peripheral edema clubbing. [employer] exam; patient awake and follows simple commands and moves all 4 extremities on command. Results Result Diagram: 05/18/19 0455 05/20/19 0400 Results 24hrs Laboratory Tests Test 05/19/19 12:27 05/19/19 17:23 05/19/19 21:18 05/20/19 00:51 Bedside Glucose 148 176 146 148 Test 05/20/19 04:00 05/20/19 05:02 05/20/19 08:39 Sodium Level 140 Potassium Level 4.3 Chloride Level 101 Carbon Dioxide Level 31 Anion Gap 8 Blood Urea Nitrogen 16 Creatinine 0.79 Est Glomerular > 60 Filtrat Rate mL/min Glucose Level 159 Calcium Level 9.1 Phosphorus Level 4.1 Magnesium Level 1.7 Bedside Glucose 157 149 Medications Medication Current Medications IV Flush (NS 3 ml) 3 ml PER PROTOCOL IV ; Start 05/09/19 at 00:00 Ondansetron HCl (Zofran Inj) 4 mg Q6H PRN IV NAUSEA/VOMITING; Start 05/09/19 at 00:00 Acetaminophen/ Hydrocodone Bitart ([place] (5/325)) 1 tab Q6H PRN PO .MOD PAIN 4- 6 Last administered on 05/20/19at 02:18; Admin Dose 1 TAB; Start 05/09/19 at 00:00 Morphine Sulfate (morphine) 2 mg Q4H PRN IV .SEVERE PAIN 7-10 Last administered on 05/18/19at 04:11; Admin Dose 2 MG; Start 05/09/19 at 00:00 Docusate Sodium (Colace) 100 mg Q12H PRN PO .CONSTIPATION; Start 05/09/19 at 00:00 Magnesium Hydroxide (Milk Of Mag) 30 ml DAILY PRN PO .CONSTIPATION; Start 05/09/19 at 00:00 Nitroglycerin (Nitroglycerin (Sl Tab) 0.4 Mg) 1 tab Q5M PRN SL ANGINA; Start 05/09/19 at 00:00 Insulin Aspart (Novolog Insulin Pen) NOVOLOG *MODERATE* ALGORI... Q4 SC Last administered on 05/20/19at 08:45; Admin Dose 2 UNIT; Start 05/09/19 at 18:00 Miscellaneous Information 1 ea NOTE XX ; Start 05/09/19 at 17:00 Glucose (Glutose) 15 gm Q15M PRN PO DECREASED GLUCOSE; Start 05/09/19 at 17:00 Glucose (Glutose) 22.5 gm Q15M PRN PO DECREASED GLUCOSE; Start 05/09/19 at 17:00 Dextrose (D50w Syringe) 25 ml Q15M PRN IV DECREASED GLUCOSE; Start 05/09/19 at 17:00 Dextrose (D50w Syringe) 50 ml Q15M PRN IV DECREASED GLUCOSE; Start 05/09/19 at 17:00 Glucagon (Glucagen) 1 mg Q15M PRN IM DECREASED GLUCOSE; Start 05/09/19 at 17:00 Glucose (Glutose) 15 gm Q15M PRN BUCCAL DECREASED GLUCOSE; Start 05/09/19 at 17:00 Atorvastatin Calcium (Lipitor) 80 mg HS NGT Last administered on 05/19/19at 20:09; Admin Dose 80 MG; Start 05/11/19 at 21:00 Insulin Glargine (Lantus) 10 units DAILY@2000 SC Last administered on 05/19/19at 20:11; Admin Dose 10 UNITS; Start 05/11/19 at 20:00 Lorazepam (Ativan) 2 mg Q6H PRN IV agitation; Start 05/13/19 at 12:00 IV Flush (NS 10 ml) 10 ml PRN PRN IV IV PROTOCOL; Start 05/13/19 at 14:00 Metoprolol Tartrate (Lopressor) 200 mg BID NGT Last administered on 05/20/19at 09:21; Admin Dose 200 MG; Start 05/14/19 at 09:15 Lisinopril (Zestril) 40 mg BID GTB Last administered on 05/20/19at 09:21; Admin Dose 40 MG; Start 05/15/19 at 09:00 Aspirin (Aspirin) 81 mg DAILY NGT Last administered on 05/20/19 09:20; Admin Dose 81 MG; Start 05/16/19 at 15:00 Tramadol HCl (Ultram) 50 mg Q6H PRN NGT MODERATE PAIN LEVEL 4-6 Last administered on 05/19/19 16:18; Admin Dose 50 MG; Start 05/18/19 at 11:00 Nicardipine HCl 50 mg/Sodium Chloride 500 ml @ 0 mls/hr TITRATE IV Last administered on 05/20/19 06:06; Admin Dose 100 MLS/HR; Start 05/18/19 at 19:30 Acetaminophen (Tylenol Liquid) 650 mg Q6H PRN NGT .PAIN 1-3 OR TEMP; Start 05/19/19 at 00:00 Famotidine (Pepcid) 20 mg Q12 NGT Last administered on 05/20/19 09:21; Admin Dose 20 MG; Start 05/18/19 at 21:00 Hydralazine HCl (Apresoline) 100 mg Q8 NGT Last administered on 05/20/19 05:13; Admin Dose 100 MG; Start 05/18/19 at 22:00 Nifedipine (Procardia) 10 mg Q6 NGT Last administered on 05/20/19 05:14; Admin Dose 10 MG; Start 05/19/19 at 00:00 Spironolactone (Aldactone) 100 mg BID NGT Last administered on 05/20/19 09:20; Admin Dose 100 MG; Start 05/19/19 at 21:00 Doxazosin Mesylate (Cardura) 1 mg HS NGT Last administered on 05/19/19at 20:10; Admin Dose 1 MG; Start 05/19/19 at 21:00 Hydralazine HCl (Apresoline) 10 mg Q4H PRN IV ELEVATED BLOOD PRESSURE; Start 05/19/19 at 20:00 Labetalol HCl (Labetalol) 10 mg Q4H PRN IV sys bp > 160 Last administered on 05/19/19 20:07; Admin Dose 10 MG; Start 05/19/19 at 17:17 JAYSON WASSERMAN 21, 2019 09:53
--- NOTE | 2019-05-20 10:52 | CONS ---
Assessment/Plan Assessment/Plan Assessment/Plan (Recall) 39 F c/ reported Hx of DM2, who presents for evaluation of multiple complaints, including GI Sx...and eventual ams, for which neurology is consulted. 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 The clinical picture was initially concerning for meningoencephalitis..CSF evaluation is inconsistent w/ infection...the erythrocytosis possibly due to a traumatic tap.. Head CT was notable for a left frontal hyperdensity, likely hemorrhagic t ransformation of an above referenced focus of acute ischemia is the context of severe hypertension.. CTA head and neck is negative for multifocal stenoses, which might otherwise suggests vasculitis, etc. TTE is unrevealing EEG was without epileptiform activity Ammonia wnl, HIV/RPR neg, ESR wnl Hypercoagulability panel is in progress, so far negative.. P Repeat Head CT today for surveillance Continue asa for secondary stroke prevention Consider SOFIA for further characterization Continued BP control to goal normotension PT/OT/ST when able Continue to hold all sedating medications where possible Other management and supportive care per primary Will follow clinically Consultation Date/Type/Reason Admit Date/Time May 08, 2019 at 23:21 Type of Consult Neurology Reason for Consultation ams Requesting Provider: DAMIEN CHOUDHARY Date/Time of Note DATE: 05/20/19 TIME: 10:51 24 HR Interval Summary Free Text/Dictation Continues nicardipine infusion Exam/Review of Systems Exam Vitals Vital Signs Date Temp Pulse Resp B/P (MAP) Pulse Ox O2 O2 Flow FiO2 Time Delivery Rate 05/20/19 74 29 157/131 95 Room Air 09:30 (140) 05/20/19 97.8 08:00 05/18/19 21 18:45 05/18/19 2.0 16:54 Intake and Output 05/19/19 05/19/19 05/20/19 1515:00 23:00 07:00 IntakeIntake Total 1257.50 ml 1617.5 ml 1010 ml OutputOutput Total 3125 ml 1050 ml 1000 ml BalanceBalance -1867.50 ml 567.5 ml 10 ml Results Result Diagram: 05/18/19 0455 05/20/19 0400 Results 24hrs Laboratory Tests Test 05/19/19 12:27 05/19/19 17:23 05/19/19 21:18 05/20/19 00:51 Bedside Glucose 148 176 146 148 Test 05/20/19 04:00 05/20/19 05:02 05/20/19 08:39 Sodium Level 140 Potassium Level 4.3 Chloride Level 101 Carbon Dioxide Level 31 Anion Gap 8 Blood Urea Nitrogen 16 Creatinine 0.79 Est Glomerular > 60 Filtrat Rate mL/min Glucose Level 159 Calcium Level 9.1 Phosphorus Level 4.1 Magnesium Level 1.7 Bedside Glucose 157 149 Medications Medication Current Medications IV Flush (NS 3 ml) 3 ml PER PROTOCOL IV ; Start 05/09/19 at 00:00 Ondansetron HCl (Zofran Inj) 4 mg Q6H PRN IV NAUSEA/VOMITING; Start 05/09/19 at 00:00 Morphine Sulfate (morphine) 2 mg Q4H PRN IV .SEVERE PAIN 7-10 Last administered on 05/18/19at 04:11; Admin Dose 2 MG; Start 05/09/19 at 00:00 Docusate Sodium (Colace) 100 mg Q12H PRN PO .CONSTIPATION; Start 05/09/19 at 00:00 Magnesium Hydroxide (Milk Of Mag) 30 ml DAILY PRN PO .CONSTIPATION; Start 05/09/19 at 00:00 Nitroglycerin (Nitroglycerin (Sl Tab) 0.4 Mg) 1 tab Q5M PRN SL ANGINA; Start 05/09/19 at 00:00 Insulin Aspart (Novolog Insulin Pen) NOVOLOG *MODERATE* ALGORI... Q4 SC Last administered on 05/20/19at 08:45; Admin Dose 2 UNIT; Start 05/09/19 at 18:00 Miscellaneous Information 1 ea NOTE XX ; Start 05/09/19 at 17:00 Glucose (Glutose) 15 gm Q15M PRN PO DECREASED GLUCOSE; Start 05/09/19 at 17:00 Glucose (Glutose) 22.5 gm Q15M PRN PO DECREASED GLUCOSE; Start 05/09/19 at 17:00 Dextrose (D50w Syringe) 25 ml Q15M PRN IV DECREASED GLUCOSE; Start 05/09/19 at 17:00 Dextrose (D50w Syringe) 50 ml Q15M PRN IV DECREASED GLUCOSE; Start 05/09/19 at 17:00 Glucagon (Glucagen) 1 mg Q15M PRN IM DECREASED GLUCOSE; Start 05/09/19 at 17:00 Glucose (Glutose) 15 gm Q15M PRN BUCCAL DECREASED GLUCOSE; Start 05/09/19 at 17:00 Atorvastatin Calcium (Lipitor) 80 mg HS NGT Last administered on 05/19/19at 20:09; Admin Dose 80 MG; Start 05/11/19 at 21:00 Insulin Glargine (Lantus) 10 units DAILY@2000 SC Last administered on 05/19/19at 20:11; Admin Dose 10 UNITS; Start 05/11/19 at 20:00 Lorazepam (Ativan) 2 mg Q6H PRN IV agitation; Start 05/13/19 at 12:00 IV Flush (NS 10 ml) 10 ml PRN PRN IV IV PROTOCOL; Start 05/13/19 at 14:00 Metoprolol Tartrate (Lopressor) 200 mg BID NGT Last administered on 05/20/19at 09:21; Admin Dose 200 MG; Start 05/14/19 at 09:15 Lisinopril (Zestril) 40 mg BID GTB Last administered on 05/20/19 09:21; Admin Dose 40 MG; Start 05/15/19 at 09:00 Aspirin (Aspirin) 81 mg DAILY NGT Last administered on 05/20/19 09:20; Admin Dose 81 MG; Start 05/16/19 at 15:00 Tramadol HCl (Ultram) 50 mg Q6H PRN NGT MODERATE PAIN LEVEL 4-6 Last administered on 05/19/19at 16:18; Admin Dose 50 MG; Start 05/18/19 at 11:00 Nicardipine HCl 50 mg/Sodium Chloride 500 ml @ 0 mls/hr TITRATE IV Last administered on 05/20/19at 06:06; Admin Dose 100 MLS/HR; Start 05/18/19 at 19:30 Acetaminophen (Tylenol Liquid) 650 mg Q6H PRN NGT .PAIN 1-3 OR TEMP; Start 05/19/19 at 00:00 Famotidine (Pepcid) 20 mg Q12 NGT Last administered on 05/20/19 09:21; Admin Dose 20 MG; Start 05/18/19 at 21:00 Hydralazine HCl (Apresoline) 100 mg Q8 NGT Last administered on 05/20/19at 05:13; Admin Dose 100 MG; Start 05/18/19 at 22:00 Nifedipine (Procardia) 10 mg Q6 NGT Last administered on 05/20/19at 05:14; Admin Dose 10 MG; Start 05/19/19 at 00:00 Spironolactone (Aldactone) 100 mg BID NGT Last administered on 05/20/19at 09:20; Admin Dose 100 MG; Start 05/19/19 at 21:00 Doxazosin Mesylate (Cardura) 1 mg HS NGT Last administered on 05/19/19at 20:10; Admin Dose 1 MG; Start 05/19/19 at 21:00 Hydralazine HCl (Apresoline) 10 mg Q4H PRN IV ELEVATED BLOOD PRESSURE; Start 05/19/19 at 20:00 Labetalol HCl (Labetalol) 10 mg Q4H PRN IV sys bp > 160 Last administered on 05/19/19at 20:07; Admin Dose 10 MG; Start 05/19/19 at 17:17 Eye Lubricant (Artificial Tears Oph) 1 drop TID BOTH EYES ; Start 05/20/19 at 13:00 JOSÉ TORO May 20, 2019 10:52
[2019-05-20] MEDS: ARTIFICIAL TEARS 15 ML OPH BOTH EYES SCH ×2 (13:01→20:38)
--- NOTE | 2019-05-20 13:41 | CONS ---
Assessment/Plan Assessment/Plan Problems: (1) Hypertension Status: Chronic Comment: Blood pressures are down a little bit. However I do not see anything that gives me any specific conclusion about a direction to go on with this. We will continue with current treatment and titrate up on the alpha blockade. Results of the work-up that we can do are pending with the exception that we have not done an evaluation for renal artery stenosis. This is actually what I suspect may be what is going on in this young lady. Qualifiers: Hypertension type: unspecified Qualified Codes: I10 - Essential (primary) hypertension (2) Grade II diastolic dysfunction Status: Chronic Comment: Control blood pressure and pulse (3) Diabetes mellitus type 2 in obese Status: Chronic Comment: Adequate control (4) Morbid obesity with BMI of 45.0-49.9, adult Status: Chronic Comment: Calorie restriction diet (5) Hemorrhagic cerebrovascular accident (CVA) Onset Date: ~ 05/08/2019 Status: Acute Comment: Stable. Repeat CT scan was just done and his results are pending (6) Hyperlipidemia Status: Chronic Comment: Continue with full dose therapy Qualifiers: Hyperlipidemia type: pure hypercholesterolemia Qualified Codes: E78.00 - Pure hypercholesterolemia, unspecified (7) Altered level of consciousness Status: Acute Comment: Persists Consultation Date/Type/Reason Admit Date/Time May 08, 2019 at 23:21 Initial Consult Date 05/19/19 Type of Consult Endocrinology Reason for Consultation Recalcitrant accelerated hypertension; multi-focal CVA; diabetes mellitus type 2 Requesting Provider: DAMIEN CHOUDHARY Date/Time of Note DATE: 05/20/19 TIME: 13:38 24 HR Interval Summary Free Text/Dictation Patient is somewhat more responsive today but only minimally. Subjective hx not possible: pt non-verbal Detailed Summary Endocrine: no complaints Exam/Review of Systems Exam Vitals Vital Signs Date Temp Pulse Resp B/P (MAP) Pulse Ox O2 O2 Flow FiO2 Time Delivery Rate 05/20/19 61 27 157/90 98 Room Air 11:15 (112) 05/20/19 97.8 08:00 05/18/19 21 18:45 05/18/19 2.0 16:54 Intake and Output 05/19/19 05/19/19 05/20/19 1515:00 23:00 07:00 IntakeIntake Total 1257.50 ml 1617.5 ml 1010 ml OutputOutput Total 3125 ml 1050 ml 1000 ml BalanceBalance -1867.50 ml 567.5 ml 10 ml Constitutional: alert, non-verbal Neck: supple, non-tender Respiratory: clear to auscultation, normal air movement Cardiovascular: regular rate and rhythm, nl pulses Gastrointestinal: soft, nl liver, spleen, non-tender Results Result Diagram: 05/18/19 0455 05/20/19 0400 Results 24hrs Laboratory Tests Test 05/19/19 17:23 05/19/19 21:18 05/20/19 00:51 05/20/19 04:00 Bedside Glucose 176 146 148 Sodium Level 140 Potassium Level 4.3 Chloride Level 101 Carbon Dioxide Level 31 Anion Gap 8 Blood Urea Nitrogen 16 Creatinine 0.79 Est Glomerular > 60 Filtrat Rate mL/min Glucose Level 159 Calcium Level 9.1 Phosphorus Level 4.1 Magnesium Level 1.7 Test 05/20/19 05:02 05/20/19 08:39 05/20/19 10:29 05/20/19 12:31 Bedside Glucose 157 149 149 Random Cortisol 18.1 Medications Medication Current Medications IV Flush (NS 3 ml) 3 ml PER PROTOCOL IV ; Start 05/09/19 at 00:00 Ondansetron HCl (Zofran Inj) 4 mg Q6H PRN IV NAUSEA/VOMITING; Start 05/09/19 at 00:00 Docusate Sodium (Colace) 100 mg Q12H PRN PO .CONSTIPATION; Start 05/09/19 at 00:00 Magnesium Hydroxide (Milk Of Mag) 30 ml DAILY PRN PO .CONSTIPATION; Start 05/09/19 at 00:00 Nitroglycerin (Nitroglycerin (Sl Tab) 0.4 Mg) 1 tab Q5M PRN SL ANGINA; Start 05/09/19 at 00:00 Insulin Aspart (Novolog Insulin Pen) NOVOLOG *MODERATE* ALGORI... Q4 SC Last administered on 05/20/19at 12:38; Admin Dose 2 UNIT; Start 05/09/19 at 18:00 Miscellaneous Information 1 ea NOTE XX ; Start 05/09/19 at 17:00 Glucose (Glutose) 15 gm Q15M PRN PO DECREASED GLUCOSE; Start 05/09/19 at 17:00 Glucose (Glutose) 22.5 gm Q15M PRN PO DECREASED GLUCOSE; Start 05/09/19 at 17:00 Dextrose (D50w Syringe) 25 ml Q15M PRN IV DECREASED GLUCOSE; Start 05/09/19 at 17:00 Dextrose (D50w Syringe) 50 ml Q15M PRN IV DECREASED GLUCOSE; Start 05/09/19 at 17:00 Glucagon (Glucagen) 1 mg Q15M PRN IM DECREASED GLUCOSE; Start 05/09/19 at 17:00 Glucose (Glutose) 15 gm Q15M PRN BUCCAL DECREASED GLUCOSE; Start 05/09/19 at 17:00 Atorvastatin Calcium (Lipitor) 80 mg HS NGT Last administered on 05/19/19at 20:09; Admin Dose 80 MG; Start 05/11/19 at 21:00 Insulin Glargine (Lantus) 10 units DAILY@2000 SC Last administered on 05/19/19at 20:11; Admin Dose 10 UNITS; Start 05/11/19 at 20:00 Lorazepam (Ativan) 2 mg Q6H PRN IV agitation; Start 05/13/19 at 12:00 IV Flush (NS 10 ml) 10 ml PRN PRN IV IV PROTOCOL; Start 05/13/19 at 14:00 Metoprolol Tartrate (Lopressor) 200 mg BID NGT Last administered on 05/20/19at 09:21; Admin Dose 200 MG; Start 05/14/19 at 09:15 Lisinopril (Zestril) 40 mg BID GTB Last administered on 05/20/19at 09:21; Admin Dose 40 MG; Start 05/15/19 at 09:00 Aspirin (Aspirin) 81 mg DAILY NGT Last administered on 05/20/19at 09:20; Admin Dose 81 MG; Start 05/16/19 at 15:00 Tramadol HCl (Ultram) 50 mg Q6H PRN NGT MODERATE PAIN LEVEL 4-6 Last administered on 05/19/19at 16:18; Admin Dose 50 MG; Start 05/18/19 at 11:00 Nicardipine HCl 50 mg/Sodium Chloride 500 ml @ 0 mls/hr TITRATE IV Last administered on 05/20/19at 06:06; Admin Dose 100 MLS/HR; Start 05/18/19 at 19:30 Acetaminophen (Tylenol Liquid) 650 mg Q6H PRN NGT .PAIN 1-3 OR TEMP; Start 05/19/19 at 00:00 Famotidine (Pepcid) 20 mg Q12 NGT Last administered on 05/20/19at 09:21; Admin Dose 20 MG; Start 05/18/19 at 21:00 Hydralazine HCl (Apresoline) 100 mg Q8 NGT Last administered on 05/20/19at 05:13; Admin Dose 100 MG; Start 05/18/19 at 22:00 Nifedipine (Procardia) 10 mg Q6 NGT Last administered on 05/20/19at 11:06; Admin Dose 10 MG; Start 05/19/19 at 00:00 Spironolactone (Aldactone) 100 mg BID NGT Last administered on 05/20/19at 09:20; Admin Dose 100 MG; Start 05/19/19 at 21:00 Hydralazine HCl (Apresoline) 10 mg Q4H PRN IV ELEVATED BLOOD PRESSURE; Start 05/19/19 at 20:00 Labetalol HCl (Labetalol) 10 mg Q4H PRN IV sys bp > 160 Last administered on 05/19/19at 20:07; Admin Dose 10 MG; Start 05/19/19 at 17:17 Eye Lubricant (Artificial Tears Oph) 1 drop TID BOTH EYES Last administered on 05/20/19at 13:01; Admin Dose 1 DROP; Start 05/20/19 at 13:00 Doxazosin Mesylate (Cardura) 2 mg HS NGT ; Start 05/20/19 at 21:00 VALENTINO MAYER MD May 20, 2019 13:41
[2019-05-20] MEDS: hydrALAzine 20 MG INJ IV PRN (14:14)
[2019-05-20] MEDS ORDERED: LORAZEPAM 2 MG INJ IV PRN (17:00)
[2019-05-20] MEDS: ATORVASTATIN 80 MG TAB NGT SCH (20:39)
[2019-05-20] MEDS: INSULIN GLARGINE [LANTus] (100 UNITS/ML) SYG SC SCH (20:42)
[2019-05-20] MEDS ORDERED: DOXAZOSIN 1 MG TAB NGT SCH (21:00)
[2019-05-21] VITALS (92 sets, daily range): BP systolic 93–188; BP diastolic 67–120; PULSE 59–93; RESP 16–34
[2019-05-21] MEDS: NIFEdipine 10 MG CAP NGT SCH ×5 (00:15→23:58)
[2019-05-21] MEDS: INSULIN ASPART [NOVOLOG] 3 ML PEN SC SCH ×6 (00:16→21:03)
[2019-05-21] MEDS: LABETALOL HCL 20MG INJ IV PRN (03:39)
[2019-05-21] MEDS: niCARdipine 50 MG in SOD CHLORIDE 0.9% 480 ML IV SCH ×3 (07:43→19:17)
--- NOTE | 2019-05-21 08:42 | CONS ---
Consult Date/Type/Reason Admit Date/Time May 08, 2019 at 23:21 Initial Consult Date 05/19/19 Type of Consultation: neph Requesting Provider: DAMIEN CHOUDHARY Date/Time of Note DATE: 05/21/19 TIME: 08:37 Subjective 39 F c/ reported Hx of DM2, who presents for evaluation of multiple complaints, including GI Sx...and eventual ams, MRI brain revealed diffuse and acute infarctions...which raises concern for a central embolic source.. The patient is stable, remains on Cardene drip. had head ct and neuro fu OBJECTIVE: HEENT: Head is normocephalic. NECK: Supple. HEART: Regular rate. LUNGS: Show diminished breath sounds at the base. ABDOMEN: Soft, nontender to palpation without rebound or guarding. EXTREMITIES: Negative for clubbing, cyanosis. Trace edema. DERMATOLOGIC: No rashes. MUSCULOSKELETAL: No joint effusions. NEUROLOGIC: No change in exam. MEDICATIONS: The patient's medications have been reviewed. Objective Vitals Vital Signs Date Temp Pulse Resp B/P (MAP) Pulse Ox O2 O2 Flow FiO2 Time Delivery Rate 05/21/19 79 25 143/77 89 06:45 (99) 05/21/19 Room Air 06:00 05/21/19 97.8 04:00 05/18/19 21 18:45 05/18/19 2.0 16:54 Intake and Output 05/20/19 05/20/19 05/21/19 1515:00 23:00 07:00 IntakeIntake Total 780 ml 1095 ml 615 ml OutputOutput Total 1020 ml 1670 ml 1850 ml BalanceBalance -240 ml -575 ml -1235 ml Results/Medications Result Diagram: 05/18/19 0455 05/21/19 0628 Results 24 hrs Laboratory Tests Test 05/20/19 08:39 05/20/19 10:29 05/20/19 12:31 05/20/19 17:53 Bedside Glucose 149 149 137 Random Cortisol 18.1 Test 05/20/19 20:37 05/21/19 00:14 05/21/19 05:40 05/21/19 06:28 Bedside Glucose 146 154 141 Sodium Level 142 Potassium Level 3.9 Chloride Level 101 Carbon Dioxide Level 30 Anion Gap 11 Blood Urea Nitrogen 14 Creatinine 0.78 Est Glomerular > 60 Filtrat Rate mL/min Glucose Level 159 Calcium Level 9.2 Home Meds Reported Medications Lisinopril* (Lisinopril*) 20 Mg Tablet, 20 MG PO BID, #30 TAB 05/09/19 Hydralazine Hcl* (Hydralazine Hcl*) 100 Mg Tablet, 100 MG PO Q8, #90 TAB 05/09/19 Glimepiride* (Glimepiride*) 2 Mg Tablet, 2 MG PO WITH BREAKFAST, TAB 05/09/19 Metformin Hcl* (Metformin Hcl*) 1,000 Mg Tablet, 1000 MG PO WITH BREAKFAST DINNE, #60 TAB 05/09/19 Famotidine* (Famotidine*) 20 Mg Tablet, 20 MG PO BID, #60 TAB 05/09/19 Medications Current Medications IV Flush (NS 3 ml) 3 ml PER PROTOCOL IV ; Start 05/09/19 at 00:00 Ondansetron HCl (Zofran Inj) 4 mg Q6H PRN IV NAUSEA/VOMITING; Start 05/09/19 at 00:00 Docusate Sodium (Colace) 100 mg Q12H PRN PO .CONSTIPATION; Start 05/09/19 at 00:00 Magnesium Hydroxide (Milk Of Mag) 30 ml DAILY PRN PO .CONSTIPATION; Start 05/09 at 00:00 Nitroglycerin (Nitroglycerin (Sl Tab) 0.4 Mg) 1 tab Q5M PRN SL ANGINA; Start 05/09/19 at 00:00 Insulin Aspart (Novolog Insulin Pen) NOVOLOG *MODERATE* ALGORI... Q4 SC Last administered on 05/21/19at 05:43; Admin Dose 2 UNIT; Start 05/09/19 at 18:00 Miscellaneous Information 1 ea NOTE XX ; Start 05/09/19 at 17:00 Glucose (Glutose) 15 gm Q15M PRN PO DECREASED GLUCOSE; Start 05/09/19 at 17:00 Glucose (Glutose) 22.5 gm Q15M PRN PO DECREASED GLUCOSE; Start 05/09/19 at 17:00 Dextrose (D50w Syringe) 25 ml Q15M PRN IV DECREASED GLUCOSE; Start 05/09/19 at 17:00 Dextrose (D50w Syringe) 50 ml Q15M PRN IV DECREASED GLUCOSE; Start 05/09/19 at 17:00 Glucagon (Glucagen) 1 mg Q15M PRN IM DECREASED GLUCOSE; Start 05/09/19 at 17:00 Glucose (Glutose) 15 gm Q15M PRN BUCCAL DECREASED GLUCOSE; Start 05/09/19 at 17:00 Atorvastatin Calcium (Lipitor) 80 mg HS NGT Last administered on 05/20/19 20:39; Admin Dose 80 MG; Start 05/11/19 at 21:00 Insulin Glargine (Lantus) 10 units DAILY@2000 SC Last administered on 05/20/19at 20:42; Admin Dose 10 UNITS; Start 05/11/19 at 20:00 IV Flush (NS 10 ml) 10 ml PRN PRN IV IV PROTOCOL; Start 05/13/19 at 14:00 Metoprolol Tartrate (Lopressor) 200 mg BID NGT Last administered on 05/20/19at 20:40; Admin Dose 200 MG; Start 05/14/19 at 09:15 Lisinopril (Zestril) 40 mg BID GTB Last administered on 05/20/19 20:39; Admin Dose 40 MG; Start 05/15/19 at 09:00 Aspirin (Aspirin) 81 mg DAILY NGT Last administered on 05/20/19 09:20; Admin Dose 81 MG; Start 05/16/19 at 15:00 Tramadol HCl (Ultram) 50 mg Q6H PRN NGT MODERATE PAIN LEVEL 4-6 Last administer ed on 05/19/19 16:18; Admin Dose 50 MG; Start 05/18/19 at 11:00 Nicardipine HCl 50 mg/Sodium Chloride 500 ml @ 0 mls/hr TITRATE IV Last administered on 05/21/19at 07:43; Admin Dose 100 MLS/HR; Start 05/18/19 at 19:30 Acetaminophen (Tylenol Liquid) 650 mg Q6H PRN NGT .PAIN 1-3 OR TEMP; Start 05/19/19 at 00:00 Famotidine (Pepcid) 20 mg Q12 NGT Last administered on 05/20/19at 20:39; Admin Dose 20 MG; Start 05/18/19 at 21:00 Hydralazine HCl (Apresoline) 100 mg Q8 NGT Last administered on 05/21/19at 05:42; Admin Dose 100 MG; Start 05/18/19 at 22:00 Nifedipine (Procardia) 10 mg Q6 NGT Last administered on 05/21/19at 05:42; Admin Dose 10 MG; Start 05/19/19 at 00:00 Spironolactone (Aldactone) 100 mg BID NGT Last administered on 05/20/19at 20:38; Admin Dose 100 MG; Start 05/19/19 at 21:00 Hydralazine HCl (Apresoline) 10 mg Q4H PRN IV ELEVATED BLOOD PRESSURE Last administered on 05/20/19at 14:14; Admin Dose 10 MG; Start 05/19/19 at 20:00 Labetalol HCl (Labetalol) 10 mg Q4H PRN IV sys bp > 160 Last administered on 05/21/19at 03:39; Admin Dose 10 MG; Start 05/19/19 at 17:17 Eye Lubricant (Artificial Tears Oph) 1 drop TID BOTH EYES Last administered on 05/20/19at 20:38; Admin Dose 1 DROP; Start 05/20/19 at 13:00 Doxazosin Mesylate (Cardura) 2 mg HS NGT Last administered on 05/20/19at 20:40; Admin Dose 2 MG; Start 05/20/19 at 21:00 Lorazepam (Ativan) 1 mg Q8H PRN IV agitation; Start 05/20/19 at 17:00 Assessment/Plan Assessment/Plan (Daily) 1. Nonoliguric acute kidney injury with previous baseline creatinine of 0.72 mg/dL. Etiology of acute kidney injury is secondary to nephrotoxicity, hemodynamics. Renal function has improved. Continue current treatment plans, supportive care, renally dose all meds. watch for diuretic phase of elen with electrolyte wasting. all meds dosed ok. 2. Volume overload. improved. Continue intermittent diuretic therapy as needed. Monitor I's and O's closely. 3. Hyperkalemia, improved. 4. Hypomagnesemia, improved. Continue to monitor. 5. Mineral bone disorder. Monitor calcium and phosphorus levels. 6. Acute encephalopathy. Etiology is secondary to acute cerebrovascular accident. Continue medical management. 7. Hypertensive urgency. The patient is being evaluated for possible secondary etiology of hypertension. Continue to wean off Cardene drip. Continue to adjust blood pressure medications. 8. Respiratory failure, status post extubation. Continue to monitor. 9. History of cerebrovascular accident with frontal hematoma. Continue medical management. 10. Tachyarrhythmia. 11. Systemic inflammatory response syndrome. 11. Hypernatremia, improved. CRISTINA COON MD May 21, 2019 08:42
--- NOTE | 2019-05-21 08:53 | CONS ---
Assessment/Plan Assessment/Plan Assessment/Plan (Daily) CT head from yesterday showing improvement in intracranial hemorrhage. Assessment and recommendations; 1. Patient admitted with intracranial hemorrhage status post self extubation several days ago with stable pulmonary status. 2. Severe hypertension, patient on a very aggressive antihypertensive regimen and still requiring nicardipine drip at 10 mg/h. 3. Interval improvement in intracranial hemorrhage as seen on CT imaging of the brain yesterday. 4. History of diabetes. 5. Acute encephalopathy, with interval improvement. Continue current supportive care. Consultation Date/Type/Reason Admit Date/Time May 08, 2019 at 23:21 Initial Consult Date 05/10/19 Type of Consult Pulmonary/critical care Patient is a 39-year-old lady who came into the hospital with complaints of nausea vomiting going on for the last 2 days with headache. Upon evaluation patient was extremely hypertensive then developed respiratory failure requiring intubation. Emergent CT imaging of the head was done which is showing intracranial hemorrhage. Patient has remained completely unresponsive. Was started on propofol drip for tachypnea. Past medical history; 1. Hypertension. Medications; reviewed. Allergies; none. Social history, family history, occupational history not available. Review of system; unable to be obtained. General exam; young female, orally intubated, sedated, currently in no distress. Requesting Provider: DAMIEN CHOUDHARY Date/Time of Note DATE: 05/21/19 TIME: 08:50 24 HR Interval Summary Free Text/Dictation Patient's condition is stable. Still on nicardipine drip for refractory hypertension. Patient mental status is also improving. General exam; young female, morbidly obese, awake and alert. Appropriately responsive. Currently no distress. Exam/Review of Systems Exam Vitals Vital Signs Date Temp Pulse Resp B/P (MAP) Pulse Ox O2 O2 Flow FiO2 Time Delivery Rate 05/21/19 79 25 143/77 89 06:45 (99) 05/21/19 Room Air 06:00 05/21/19 97.8 04:00 05/18/19 21 18:45 05/18/19 2.0 16:54 Intake and Output 05/20/19 05/20/19 05/21/19 1515:00 23:00 07:00 IntakeIntake Total 780 ml 1095 ml 615 ml OutputOutput Total 1020 ml 1670 ml 1850 ml BalanceBalance -240 ml -575 ml -1235 ml Exam HE ENT exam; supple neck, no JVD. No lymphadenopathy. Midline trachea. No thyromegaly. Patient has good dentition. Chest exam; clear to auscultation. S1-S2 audible, no murmurs. Regular rhythm. Abdomen exam; soft, no organomegaly. Nontender. Protuberant. Bowel sounds audible. Extremity exam; no peripheral edema clubbing. Pulses 2+. CATEGORY MANAGER exam; patient awake, appropriately responsive. But exhibiting occasional agitation. Results Result Diagram: 05/18/19 0455 05/21/19 0628 Results 24hrs Laboratory Tests Test 05/20/19 10:29 05/20/19 12:31 05/20/19 17:53 05/20/19 20:37 Random Cortisol 18.1 Bedside Glucose 149 137 146 Test 05/21/19 00:14 05/21/19 05:40 05/21/19 06:28 Bedside Glucose 154 141 Sodium Level 142 Potassium Level 3.9 Chloride Level 101 Carbon Dioxide Level 30 Anion Gap 11 Blood Urea Nitrogen 14 Creatinine 0.78 Est Glomerular > 60 Filtrat Rate mL/min Glucose Level 159 Calcium Level 9.2 Medications Medication Current Medications IV Flush (NS 3 ml) 3 ml PER PROTOCOL IV ; Start 05/09/19 at 00:00 Ondansetron HCl (Zofran Inj) 4 mg Q6H PRN IV NAUSEA/VOMITING; Start 05/09/19 at 00:00 Docusate Sodium (Colace) 100 mg Q12H PRN PO .CONSTIPATION; Start 05/09/19 at 00:00 Magnesium Hydroxide (Milk Of Mag) 30 ml DAILY PRN PO .CONSTIPATION; Start 05/09/19 at 00:00 Nitroglycerin (Nitroglycerin (Sl Tab) 0.4 Mg) 1 tab Q5M PRN SL ANGINA; Start 05/09/19 at 00:00 Insulin Aspart (Novolog Insulin Pen) NOVOLOG *MODERATE* ALGORI... Q4 SC Last administered on 05/21/19at 05:43; Admin Dose 2 UNIT; Start 05/09/19 at 18:00 Miscellaneous Information 1 ea NOTE XX ; Start 05/09/19 at 17:00 Glucose (Glutose) 15 gm Q15M PRN PO DECREASED GLUCOSE; Start 05/09/19 at 17:00 Glucose (Glutose) 22.5 gm Q15M PRN PO DECREASED GLUCOSE; Start 05/09/19 at 17:00 Dextrose (D50w Syringe) 25 ml Q15M PRN IV DECREASED GLUCOSE; Start 05/09/19 at 17:00 Dextrose (D50w Syringe) 50 ml Q15M PRN IV DECREASED GLUCOSE; Start 05/09/19 at 17:00 Glucagon (Glucagen) 1 mg Q15M PRN IM DECREASED GLUCOSE; Start 05/09/19 at 17:00 Glucose (Glutose) 15 gm Q15M PRN BUCCAL DECREASED GLUCOSE; Start 05/09/19 at 17:00 Atorvastatin Calcium (Lipitor) 80 mg HS NGT Last administered on 05/20/19at 20:39; Admin Dose 80 MG; Start 05/11/19 at 21:00 Insulin Glargine (Lantus) 10 units DAILY@2000 SC Last administered on 05/20/19at 20:42; Admin Dose 10 UNITS; Start 05/11/19 at 20:00 IV Flush (NS 10 ml) 10 ml PRN PRN IV IV PROTOCOL; Start 05/13/19 at 14:00 Metoprolol Tartrate (Lopressor) 200 mg BID NGT Last administered on 05/20/19at 20:40; Admin Dose 200 MG; Start 05/14/19 at 09:15 Lisinopril (Zestril) 40 mg BID GTB Last administered on 05/20/19at 20:39; Admin Dose 40 MG; Start 05/15/19 at 09:00 Aspirin (Aspirin) 81 mg DAILY NGT Last administered on 05/20/19at 09:20; Admin Dose 81 MG; Start 05/16/19 at 15:00 Tramadol HCl (Ultram) 50 mg Q6H PRN NGT MODERATE PAIN LEVEL 4-6 Last administered on 05/19/19at 16:18; Admin Dose 50 MG; Start 05/18/19 at 11:00 Nicardipine HCl 50 mg/Sodium Chloride 500 ml @ 0 mls/hr TITRATE IV Last administered on 05/21/19at 07:43; Admin Dose 100 MLS/HR; Start 05/18/19 at 19:30 Acetaminophen (Tylenol Liquid) 650 mg Q6H PRN NGT .PAIN 1-3 OR TEMP; Start 05/19/19 at 00:00 Famotidine (Pepcid) 20 mg Q12 NGT Last administered on 05/20/19 20:39; Admin Dose 20 MG; Start 05/18/19 at 21:00 Hydralazine HCl (Apresoline) 100 mg Q8 NGT Last administered on 05/21/19 05:42; Admin Dose 100 MG; Start 05/18/19 at 22:00 Nifedipine (Procardia) 10 mg Q6 NGT Last administered on 05/21/19 05:42; Admin Dose 10 MG; Start 05/19/19 at 00:00 Spironolactone (Aldactone) 100 mg BID NGT Last administered on 05/20/19 20:38; Admin Dose 100 MG; Start 05/19/19 at 21:00 Hydralazine HCl (Apresoline) 10 mg Q4H PRN IV ELEVATED BLOOD PRESSURE Last administered on 05/20/19 14:14; Admin Dose 10 MG; Start 05/19/19 at 20:00 Labetalol HCl (Labetalol) 10 mg Q4H PRN IV sys bp > 160 Last administered on 05/21/19 03:39; Admin Dose 10 MG; Start 05/19/19 at 17:17 Eye Lubricant (Artificial Tears Oph) 1 drop TID BOTH EYES Last administered on 05/20/19 20:38; Admin Dose 1 DROP; Start 05/20/19 at 13:00 Doxazosin Mesylate (Cardura) 2 mg HS NGT Last administered on 05/20/19at 20:40; Admin Dose 2 MG; Start 05/20/19 at 21:00 Lorazepam (Ativan) 1 mg Q8H PRN IV agitation; Start 05/20/19 at 17:00 JAYSON WASSERMAN May 21, 2019 08:53
[2019-05-21] MEDS: ARTIFICIAL TEARS 15 ML OPH BOTH EYES SCH ×3 (09:35→21:07)
[2019-05-21] MEDS: LISINOPRIL 20 MG TAB GTB SCH ×2 (09:37→21:09)
[2019-05-21] MEDS: SPIRONOLACTONE 50 MG TAB NGT SCH ×2 (09:38→21:08)
[2019-05-21] MEDS: METOPROLOL 100 MG TAB NGT SCH ×2 (09:38→21:08)
[2019-05-21] MEDS: FAMOTIDINE 20 MG TAB NGT SCH ×2 (09:38→21:08)
[2019-05-21] MEDS: ASPIRIN 81 MG TAB NGT SCH (09:38)
--- NOTE | 2019-05-21 11:41 | CONS ---
Assessment/Plan Assessment/Plan Problems: (1) Hypertension Status: Chronic Comment: BP has been variable. Good response to doxazosin last night initially w/ discontinuation of nicardipine drip. However, did not last and pt. has had ongoing spikes in BP w/ nicardipine drip being restarted. Will increase do xazosin to 2 mg bid. Await catecholamine evaluation to r/o pheo. May need to image abd. if possible that pt. could have adrenal etiology. Will wait for pt. to be more stable. Qualifiers: Hypertension type: unspecified Qualified Codes: I10 - Essential (primary) hypertension (2) Diabetes mellitus type 2 in obese Status: Chronic Comment: Good glycemic control. Cont. lantus 10 units qhs. Will monitor. Consultation Date/Type/Reason Admit Date/Time May 08, 2019 at 23:21 Initial Consult Date 05/19/19 Type of Consult Endocrinology Reason for Consultation R/o secondary HTN Requesting Provider: DAMIEN CHOUDHARY Date/Time of Note DATE: 05/21/19 TIME: 11:36 24 HR Interval Summary Subjective hx not possible: pt non-verbal Exam/Review of Systems Exam Vitals VS - Last 72 Hours, by Label Date Temp Pulse Resp B/P (MAP) Pulse Ox O2 O2 Flow FiO2 Time Delivery Rate 05/21/19 74 23 131/79 97 Room Air 10:00 (96) 05/21/19 87 28 178/82 95 09:45 (114) 05/21/19 91 29 174/84 90 09:30 (114) 05/21/19 93 25 163/85 96 09:15 (111) 05/21/19 85 20 131/89 97 Room Air 09:00 (103) 05/21/19 82 27 143/85 95 08:45 (104) 05/21/19 88 28 155/80 97 08:30 (105) 05/21/19 82 24 156/91 94 08:15 (112) 05/21/19 88 08:00 05/21/19 98.2 80 20 167/91 96 Room Air 08:00 (116) 05/21/19 87 23 154/85 96 07:45 (108) 05/21/19 83 23 150/90 95 07:30 (110) 05/21/19 81 26 136/87 89 07:15 (103) 05/21/19 80 21 161/82 91 Room Air 07:00 (108) 05/21/19 79 25 143/77 89 06:45 (99) 05/21/19 80 27 124/87 92 06:30 (99) 05/21/19 77 22 124/92 88 06:15 (103) 05/21/19 81 145/90 95 Room Air 06:00 (108) 05/21/19 81 26 172/81 88 05:45 (111) 05/21/19 83 23 140/107 85 05:30 (118) 05/21/19 83 24 166/93 90 05:15 (117) 05/21/19 79 16 162/98 93 Room Air 05:00 (119) 05/21/19 83 24 132/94 90 04:45 (107) 05/21/19 79 20 188/106 88 04:30 (133) 05/21/19 82 27 179/100 88 04:15 (126) 05/21/19 97.8 78 30 168/111 92 Room Air 04:00 (130) 05/21/19 82 04:00 05/21/19 78 23 170/106 92 03:45 (127) 05/21/19 84 27 170/94 98 03:30 (119) 05/21/19 78 17 175/103 95 03:15 (127) 05/21/19 72 17 130/97 93 Room Air 03:00 (108) 05/21/19 79 19 93/80 (84) 98 02:45 05/21/19 75 19 126/102 98 02:30 (110) 05/21/19 19 140/89 98 02:15 (106) 05/21/19 73 26 127/114 93 Room Air 02:00 (118) 05/21/19 71 19 130/85 98 01:45 (100) 05/21/19 72 20 114/96 98 01:30 (102) 05/21/19 73 22 122/84 94 01:15 (97) 05/21/19 72 19 111/69 96 Room Air 01:00 (83) 05/21/19 71 24 121/85 97 00:45 (97) 05/21/19 73 27 111/75 97 00:30 (87) 05/21/19 75 29 147/85 97 00:15 (105) 05/21/19 69 00:00 05/21/19 98.5 70 22 124/98 94 Room Air 00:00 (107) 05/20/19 71 19 165/87 99 23:45 (113) 05/20/19 69 33 165/82 92 23:30 (109) 05/20/19 67 22 155/86 100 Room Air 23:15 (109) 05/20/19 70 20 91 23:00 05/20/19 65 20 117/83 99 22:45 (94) 05/20/19 63 27 127/86 92 22:30 (100) 05/20/19 63 24 136/79 96 22:15 (98) 05/20/19 64 21 136/84 92 Room Air 22:00 (101) 05/20/19 63 19 141/84 93 21:45 (103) 05/20/19 66 25 144/85 82 21:30 (104) 05/20/19 68 30 137/86 86 21:15 (103) 05/20/19 73 23 158/92 94 Room Air 21:00 (114) 05/20/19 86 25 175/95 83 20:45 (121) 05/20/19 82 21 161/108 87 20:30 (125) 05/20/19 85 21 92 20:15 05/20/19 79 20:00 05/20/19 97.5 79 21 163/91 88 Room Air 20:00 (115) 05/20/19 82 28 173/100 83 19:45 (124) 05/20/19 84 33 171/123 92 19:30 (139) 05/20/19 82 24 151/104 91 19:15 (120) 05/20/19 78 18 138/86 92 19:00 (103) 05/20/19 79 31 170/94 90 18:45 (119) 05/20/19 78 34 157/102 84 18:30 (120) 05/20/19 84 25 177/97 87 Room Air 17:30 (123) 05/20/19 84 26 153/98 82 Room Air 17:15 (116) 05/20/19 77 25 85 Room Air 17:00 05/20/19 74 29 176/99 93 Room Air 16:45 (124) 05/20/19 78 28 173/90 90 Room Air 16:30 (117) 05/20/19 76 22 171/108 88 Room Air 16:15 (129) 05/20/19 97.5 80 28 170/97 91 Room Air 16:00 (121) 05/20/19 74 16:00 05/20/19 75 23 172/104 92 Room Air 15:45 (126) 05/20/19 67 20 154/104 95 Room Air 15:30 (121) 05/20/19 75 32 161/91 Room Air 15:15 (114) 05/20/19 68 22 94 Room Air 15:00 05/20/19 71 24 174/80 91 Room Air 14:45 (111) 05/20/19 71 27 177/87 95 Room Air 14:30 (117) 05/20/19 63 25 172/90 93 Room Air 14:15 (117) 05/20/19 67 24 162/86 93 Room Air 14:00 (111) 05/20/19 67 19 156/110 95 Room Air 13:45 (125) 05/20/19 25 155/94 Room Air 13:30 (114) 05/20/19 66 25 157/89 100 Room Air 13:00 (111) 05/20/19 63 20 167/86 99 Room Air 12:45 (113) 05/20/19 66 25 155/98 93 Room Air 12:30 (117) 05/20/19 59 17 146/86 99 Room Air 12:15 (106) 05/20/19 97.6 59 23 134/86 91 Room Air 12:00 (102) 05/20/19 67 12:00 05/20/19 59 12:00 05/20/19 64 35 127/82 95 Room Air 11:45 (97) 05/20/19 60 24 130/82 91 Room Air 11:30 (98) 05/20/19 61 27 157/90 98 Room Air 11:15 (112) 05/20/19 61 17 166/89 96 Room Air 11:00 (114) 05/20/19 55 25 147/80 95 Room Air 10:45 (102) 05/20/19 60 27 143/85 93 Room Air 10:30 (104) 05/20/19 61 19 155/140 97 Room Air 10:15 (145) 05/20/19 59 21 144/80 98 Room Air 10:00 (101) 05/20/19 59 21 158/82 98 Room Air 09:45 (107) 05/20/19 74 29 157/131 95 Room Air 09:30 (140) 05/20/19 70 21 171/69 92 Room Air 09:15 (103) 05/20/19 79 23 126/108 97 Room Air 09:00 (114) 05/20/19 76 29 163/94 95 Room Air 08:45 (117) 05/20/19 77 22 137/84 97 Room Air 08:30 (101) 05/20/19 71 25 152/86 98 Room Air 08:15 (108) 05/20/19 66 08:00 05/20/19 71 08:00 05/20/19 97.8 71 24 145/78 97 Room Air 08:00 (100) 05/20/19 70 34 148/87 95 Room Air 07:45 (107) 05/20/19 70 29 150/72 93 Room Air 07:15 (98) 05/20/19 68 28 164/75 97 Room Air 07:00 (104) 05/20/19 66 21 129/81 95 Room Air 05:30 (97) 05/20/19 68 24 167/88 97 Room Air 05:15 (114) 05/20/19 72 22 148/111 95 Room Air 05:00 (123) 05/20/19 65 22 114/95 96 Room Air 04:45 (101) 05/20/19 68 27 161/91 95 Room Air 04:30 (114) 05/20/19 66 28 151/87 94 Room Air 04:15 (108) 05/20/19 97.8 61 26 153/82 96 Room Air 04:00 (105) 05/20/19 61 04:00 05/20/19 60 21 144/88 96 Room Air 03:45 (106) 05/20/19 63 25 151/88 93 Room Air 03:30 (109) 05/20/19 62 25 165/86 92 Room Air 03:15 (112) 05/20/19 68 24 137/84 94 Room Air 03:00 (101) 05/20/19 67 20 102/38 95 Room Air 02:45 (59) 05/20/19 64 24 140/87 95 Room Air 02:30 (104) 05/20/19 66 21 137/82 97 Room Air 02:15 (100) 05/20/19 66 21 141/75 97 Room Air 02:00 (97) 05/20/19 66 18 135/123 96 Room Air 01:45 (127) 05/20/19 67 23 125/87 93 Room Air 01:30 (100) 05/20/19 67 22 131/79 98 Room Air 01:15 (96) 05/20/19 69 25 140/106 97 Room Air 01:00 (117) 05/20/19 66 26 126/100 98 Room Air 00:45 (109) 05/20/19 71 30 167/89 97 Room Air 00:30 (115) 05/20/19 68 27 150/90 96 Room Air 00:15 (110) 05/20/19 67 00:00 05/20/19 98.1 63 19 139/95 94 Room Air 00:00 (110) 05/19/19 65 22 165/76 99 Room Air 23:45 (105) 05/19/19 60 20 144/83 91 Room Air 23:30 (103) 05/19/19 62 22 90/79 (83) 91 Room Air 23:15 05/19/19 59 23 144/82 89 Room Air 23:00 (102) 05/19/19 63 18 140/76 96 Room Air 22:45 (97) 05/19/19 63 20 164/97 91 Room Air 22:30 (119) 05/19/19 57 23 151/88 96 Room Air 22:00 (109) 05/19/19 59 27 149/91 96 Room Air 21:45 (110) 05/19/19 58 20 151/88 96 Room Air 21:30 (109) 05/19/19 58 23 148/90 90 Room Air 21:15 (109) 05/19/19 59 25 148/90 91 Room Air 21:00 (109) 05/19/19 59 24 143/88 91 Room Air 20:45 (106) 05/19/19 67 26 154/93 92 Room Air 20:30 (113) 05/19/19 71 21 163/78 97 Room Air 20:15 (106) 05/19/19 74 20:00 05/19/19 98.0 74 31 176/107 97 Room Air 20:00 (130) 05/19/19 73 25 175/104 96 Room Air 19:45 (127) 05/19/19 73 30 143/94 95 Room Air 19:30 (110) 05/19/19 73 25 157/87 94 Room Air 19:15 (110) 05/19/19 72 34 160/99 93 Room Air 19:00 (119) 05/19/19 74 23 150/90 96 18:30 (110) 05/19/19 75 25 162/91 96 18:15 (114) 05/19/19 75 20 131/87 96 Room Air 18:00 (102) 05/19/19 74 18 148/92 95 17:45 (110) 05/19/19 72 32 186/88 96 17:30 (120) 05/19/19 71 23 173/85 96 17:15 (114) 05/19/19 71 29 174/83 96 Room Air 17:00 (113) 05/19/19 73 23 161/85 96 16:30 (110) 05/19/19 75 16:00 05/19/19 98.4 75 29 182/94 94 Room Air 16:00 (123) 05/19/19 69 19 140/92 95 15:30 (108) 05/19/19 70 19 175/104 94 Room Air 15:00 (127) 05/19/19 72 33 171/109 97 14:30 (129) 05/19/19 72 25 162/103 97 14:15 (122) 05/19/19 70 30 163/103 97 Room Air 14:00 (123) 05/19/19 73 30 173/106 93 13:45 (128) 05/19/19 73 27 157/103 87 13:30 (121) 05/19/19 76 36 182/93 96 13:15 (122) 05/19/19 78 35 205/105 94 Room Air 13:00 (138) 05/19/19 69 28 190/101 94 12:45 (130) 05/19/19 71 23 185/104 97 12:30 (131) 05/19/19 68 20 195/103 93 12:15 (133) 05/19/19 115 12:00 05/19/19 98.9 67 24 196/119 94 Room Air 12:00 (144) 05/19/19 66 27 146/108 93 11:30 (121) 05/19/19 64 24 163/98 92 Room Air 11:00 (119) 05/19/19 62 30 158/95 92 10:30 (116) 05/19/19 61 29 144/94 95 10:15 (111) 05/19/19 64 24 144/94 94 Room Air 10:00 (111) 05/19/19 63 32 145/87 95 09:30 (106) 05/19/19 62 24 142/92 95 09:15 (109) 05/19/19 65 27 145/92 94 Room Air 09:00 (109) 05/19/19 77 27 171/95 96 08:45 (120) 05/19/19 83 23 183/89 94 08:30 (120) 05/19/19 84 27 175/92 95 08:15 (119) 05/19/19 98.5 80 26 183/97 96 Room Air 08:00 (125) 05/19/19 84 08:00 05/19/19 82 28 184/92 95 07:45 (122) 05/19/19 83 28 183/88 96 07:30 (119) 05/19/19 82 31 172/103 97 Room Air 07:15 (126) 05/19/19 81 25 174/95 96 Room Air 07:00 (121) 05/19/19 77 23 158/100 97 06:45 (119) 05/19/19 74 22 159/107 95 06:30 (124) 05/19/19 77 27 158/89 97 06:15 (112) 05/19/19 73 25 146/96 99 06:00 (113) 05/19/19 80 20 99 05:45 05/19/19 77 25 143/98 93 05:30 (113) 05/19/19 78 25 158/92 95 05:15 (114) 05/19/19 79 28 166/95 97 Room Air 05:00 (118) 05/19/19 76 23 167/100 92 04:45 (122) 05/19/19 75 27 158/96 94 04:30 (116) 05/19/19 76 25 162/99 95 04:15 (120) 05/19/19 76 04:00 05/19/19 97.5 75 20 159/95 96 Room Air 04:00 (116) 05/19/19 75 27 159/96 97 03:45 (117) 05/19/19 75 29 154/96 94 03:30 (115) 05/19/19 74 29 158/95 97 03:15 (116) 05/19/19 73 30 154/90 96 Room Air 03:00 (111) 05/19/19 74 29 174/102 96 02:45 (126) 05/19/19 69 22 151/92 93 02:30 (111) 05/19/19 73 36 150/97 98 02:15 (114) 05/19/19 71 34 160/100 96 Room Air 02:00 (120) 05/19/19 67 22 146/87 95 01:45 (106) 05/19/19 70 28 164/90 99 01:30 (114) 05/19/19 67 19 135/87 95 01:15 (103) 05/19/19 67 19 135/83 95 Room Air 01:00 (100) 05/19/19 67 24 127/86 93 00:45 (100) 05/19/19 67 29 129/81 97 00:30 (97) 05/19/19 69 30 151/85 96 Room Air 00:15 (107) 05/19/19 69 00:00 05/19/19 97.9 69 33 95 00:00 05/18/19 65 20 155/82 97 23:45 (106) 05/18/19 65 28 154/85 98 23:30 (108) 05/18/19 64 27 157/86 96 23:15 (109) 05/18/19 64 33 159/86 98 Room Air 23:00 (110) 05/18/19 61 25 159/82 96 22:45 (107) 05/18/19 60 25 148/88 91 22:30 (108) 05/18/19 62 33 143/87 99 22:15 (105) 05/18/19 61 18 136/121 96 Room Air 22:00 (126) 05/18/19 62 28 146/87 92 21:45 (106) 05/18/19 59 23 152/90 97 21:30 (110) 05/18/19 60 23 151/87 97 21:15 (108) 05/18/19 67 18 176/99 94 Room Air 21:00 (124) 05/18/19 76 17 189/97 96 20:45 (127) 05/18/19 74 22 184/94 92 20:30 (124) 05/18/19 79 22 136/101 95 20:15 (113) 05/18/19 73 20:00 05/18/19 98.2 77 23 170/99 98 Room Air 20:00 (122) 05/18/19 71 17 98 19:45 05/18/19 67 25 169/101 96 19:30 (123) 05/18/19 76 33 95 19:15 05/18/19 76 29 176/90 93 Room Air 19:00 (118) 05/18/19 21 18:45 05/18/19 74 20 167/90 99 18:30 (115) 05/18/19 79 18 160/98 96 Room Air 18:00 (118) 05/18/19 78 19 153/98 96 17:30 (116) 05/18/19 78 22 176/104 98 17:15 (128) 05/18/19 75 18 168/103 96 Room Air 17:00 (124) 05/18/19 2.0 16:54 05/18/19 72 18 161/91 99 16:30 (114) 05/18/19 70 16:00 05/18/19 98.1 74 16 157/91 99 Room Air 16:00 (113) 05/18/19 71 24 177/96 97 15:30 (123) 05/18/19 65 17 165/107 96 Room Air 15:00 (126) 05/18/19 67 35 151/84 99 14:30 (106) 05/18/19 63 28 152/85 98 Room Air 14:00 (107) 05/18/19 63 28 135/85 96 13:30 (102) 05/18/19 63 25 129/94 97 Room Air 13:00 (106) 05/18/19 59 19 121/85 99 12:30 (97) 05/18/19 98.4 61 29 155/90 96 Room Air 12:00 (111) 05/18/19 63 12:00 Vital Signs Date Temp Pulse Resp B/P (MAP) Pulse Ox O2 O2 Flow FiO2 Time Delivery Rate 05/21/19 74 23 131/79 97 Room Air 10:00 (96) 05/21/19 98.2 08:00 05/18/19 21 18:45 05/18/19 2.0 16:54 Intake and Output 05/20/19 05/20/19 05/21/19 1515:00 23:00 07:00 IntakeIntake Total 780 ml 1095 ml 715 ml OutputOutput Total 1020 ml 1670 ml 1850 ml BalanceBalance -240 ml -575 ml -1135 ml Constitutional: non-verbal, obese; No alert Respiratory: clear to auscultation, normal air movement Cardiovascular: regular rate and rhythm, nl pulses; No edema, No murmurs/extra sounds, No rub Gastrointestinal: soft, nl liver, spleen, non-tender, bowel sounds; No mass, No rebound or guarding Musculoskeletal: nl extremities to inspection Extremities: normal pulses; No cyanosis, No clubbing, No edema Neurological: lethargic Additional Comments Bedside Glucose - 72 Hours Test 05/18/19 13:06 05/18/19 17:48 05/18/19 20:38 05/19/19 00:11 Bedside 154 128 120 135 Glucose mg/dL (70-220) mg/dL (70-220) mg/dL (70-220) mg/dL (70-220) Test 05/19/19 05:15 05/19/19 08:26 05/19/19 12:27 05/19/19 17:23 Bedside 135 151 148 176 Glucose mg/dL (70-220) mg/dL (70-220) mg/dL (70-220) mg/dL (70-220) Test 05/19/19 21:18 05/20/19 00:51 05/20/19 05:02 05/20/19 08:39 Bedside 146 148 157 149 Glucose mg/dL (70-220) mg/dL (70-220) mg/dL (70-220) mg/dL (70-220) Test 05/20/19 12:31 05/20/19 17:53 05/20/19 20:37 05/21/19 00:14 Bedside 149 137 146 154 Glucose mg/dL (70-220) mg/dL (70-220) mg/dL (70-220) mg/dL (70-220) Test 05/21/19 05:40 05/21/19 09:40 Bedside 141 138 Glucose mg/dL (70-220) mg/dL (70-220) Results Result Diagram: 05/18/19 0455 05/21/19 0628 Results 24hrs Laboratory Tests Test 05/20/19 12:31 05/20/19 17:53 05/20/19 20:37 05/21/19 00:14 Bedside Glucose 149 137 146 154 Test 05/21/19 05:40 05/21/19 06:28 05/21/19 09:40 Bedside Glucose 141 138 Sodium Level 142 Potassium Level 3.9 Chloride Level 101 Carbon Dioxide Level 30 Anion Gap 11 Blood Urea Nitrogen 14 Creatinine 0.78 Est Glomerular > 60 Filtrat Rate mL/min Glucose Level 159 Calcium Level 9.2 Medications Medication Current Medications IV Flush (NS 3 ml) 3 ml PER PROTOCOL IV ; Start 05/09/19 at 00:00 Ondansetron HCl (Zofran Inj) 4 mg Q6H PRN IV NAUSEA/VOMITING; Start 05/09/19 at 00:00 Docusate Sodium (Colace) 100 mg Q12H PRN PO .CONSTIPATION; Start 05/09/19 at 00:00 Magnesium Hydroxide (Milk Of Mag) 30 ml DAILY PRN PO .CONSTIPATION; Start 05/09/19 at 00:00 Nitroglycerin (Nitroglycerin (Sl Tab) 0.4 Mg) 1 tab Q5M PRN SL ANGINA; Start 05/09/19 at 00:00 Insulin Aspart (Novolog Insulin Pen) NOVOLOG *MODERATE* ALGORI... Q4 SC Last administered on 05/21/19at 05:43; Admin Dose 2 UNIT; Start 05/09/19 at 18:00 Miscellaneous Information 1 ea NOTE XX ; Start 05/09/19 at 17:00 Glucose (Glutose) 15 gm Q15M PRN PO DECREASED GLUCOSE; Start 05/09/19 at 17:00 Glucose (Glutose) 22.5 gm Q15M PRN PO DECREASED GLUCOSE; Start 05/09/19 at 17:00 Dextrose (D50w Syringe) 25 ml Q15M PRN IV DECREASED GLUCOSE; Start 05/09/19 at 17:00 Dextrose (D50w Syringe) 50 ml Q15M PRN IV DECREASED GLUCOSE; Start 05/09/19 at 17:00 Glucagon (Glucagen) 1 mg Q15M PRN IM DECREASED GLUCOSE; Start 05/09/19 at 17:00 Glucose (Glutose) 15 gm Q15M PRN BUCCAL DECREASED GLUCOSE; Start 05/09/19 at 17:00 Atorvastatin Calcium (Lipitor) 80 mg HS NGT Last administered on 05/20/19 20:39; Admin Dose 80 MG; Start 05/11/19 at 21:00 Insulin Glargine (Lantus) 10 units DAILY@2000 SC Last administered on 05/20/19 20:42; Admin Dose 10 UNITS; Start 05/11/19 at 20:00 IV Flush (NS 10 ml) 10 ml PRN PRN IV IV PROTOCOL; Start 05/13/19 at 14:00 Metoprolol Tartrate (Lopressor) 200 mg BID NGT Last administered on 05/21/19 09:38; Admin Dose 200 MG; Start 05/14/19 at 09:15 Lisinopril (Zestril) 40 mg BID GTB Last administered on 05/21/19 09:37; Admin Dose 40 MG; Start 05/15/19 at 09:00 Aspirin (Aspirin) 81 mg DAILY NGT Last administered on 05/21/19 09:38; Admin Dose 81 MG; Start 05/16/19 at 15:00 Tramadol HCl (Ultram) 50 mg Q6H PRN NGT MODERATE PAIN LEVEL 4-6 Last admi nistered on 05/19/19 16:18; Admin Dose 50 MG; Start 05/18/19 at 11:00 Nicardipine HCl 50 mg/Sodium Chloride 500 ml @ 0 mls/hr TITRATE IV Last administered on 05/21/19 07:43; Admin Dose 100 MLS/HR; Start 05/18/19 at 19:30 Acetaminophen (Tylenol Liquid) 650 mg Q6H PRN NGT .PAIN 1-3 OR TEMP; Start 05/19/19 at 00:00 Famotidine (Pepcid) 20 mg Q12 NGT Last administered on 05/21/19 09:38; Admin Dose 20 MG; Start 05/18/19 at 21:00 Hydralazine HCl (Apresoline) 100 mg Q8 NGT Last administered on 05/21/19 05:42; Admin Dose 100 MG; Start 05/18/19 at 22:00 Nifedipine (Procardia) 10 mg Q6 NGT Last administered on 05/21/19 05:42; Admin Dose 10 MG; Start 05/19/19 at 00:00 Spironolactone (Aldactone) 100 mg BID NGT Last administered on 05/21/19at 09:38; Admin Dose 100 MG; Start 05/19/19 at 21:00 Hydralazine HCl (Apresoline) 10 mg Q4H PRN IV ELEVATED BLOOD PRESSURE Last administered on 05/20/19at 14:14; Admin Dose 10 MG; Start 05/19/19 at 20:00 Labetalol HCl (Labetalol) 10 mg Q4H PRN IV sys bp > 160 Last administered on 05/21/19at 03:39; Admin Dose 10 MG; Start 05/19/19 at 17:17 Eye Lubricant (Artificial Tears Oph) 1 drop TID BOTH EYES Last administered on 05/21/19at 09:35; Admin Dose 1 DROP; Start 05/20/19 at 13:00 Doxazosin Mesylate (Cardura) 2 mg HS NGT Last administered on 05/20/19at 20:40; Admin Dose 2 MG; Start 05/20/19 at 21:00 Lorazepam (Ativan) 1 mg Q8H PRN IV agitation; Start 05/20/19 at 17:00 TARYN RAY MD May 21, 2019 11:41
[2019-05-21] MEDS ORDERED: DOXAZOSIN 2 MG TAB NGT SCH (12:00)
--- NOTE | 2019-05-21 12:35 | PN ---
Date/Time of Note Date/Time of Note DATE: 05/21/19 TIME: 12:32 Assessment/Plan VTE Prophylaxis Risk score (from Nsg)>0 risk: 11 SCD applied (from Nsg): Yes Pharmacological prophylaxis: other Lines/Catheters IV Catheter Type (from Nrsg): Mid Line Urinary Cath still in place: Yes Reason Cath still needed: urinary retention Assessment/Plan Hospital Course S: Patient was briefly off the Cardene drip yesterday but had to be restarted. Seen by pulmonary, renal, and endocrinology teams today and adjustments made again to the blood pressure medicine regimen. O: VS - see below PE: Gen: Morbidly obese woman lying supine in bed, lethargic and a bit more confused today Eyes: Slightly injected conjunctivae. Normal pupils ENT: Normal External Ears, Nose and Mouth. Moist mucous membranes. Neck: No meningismus. No lymphadenopathy. Resp: Clear to auscultation bilaterally. Cardio: Regular rate and rhythm, no murmurs appreciated. Abd: Soft, obese, nondistended, normal bowel sounds Ext: No lower extremity edema bilaterally Neuro: In restraints, but no focal deficits Assessment/Plan: 39-year-old morbidly obese woman with history of HTN who comes in with decreased p.o. intake, lethargy preceded by delirium and nausea and vomiting. 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 #Encephalopathy-slowly improving as patient answers slightly more questions now in [place], MRI brain showed several new and old infarcts concerning for central embolic source. There is a small frontal bleed which may be hemorrhagic infarct- TTE done without evidence of vegetations or thrombus - HIV negative - No concern for infectious meningitis based on LP, patient presently off antibiotics. - Neurology Dr. Laurent following, monitor, follow-up their recommendations - Limit sedation as much as possible, continue PT and OT as much as possible #GARDENIA - Likely due to iatrogenic vancomycin toxicity- Now resolved. - Dr. Haas following, monitor for now #Respiratory failure- Intubated due to poor mental status- Self-extubated 6/16 AM - Currently protecting airway. Monitor cautiously in ICU versus tele bed near nursing station. # Hypertension: Slightly improved x48 hours with adjustments made to the dosages and new p.o. regimen added. Still on the Cardene drip. Appreciate endocrinology consult, we are currently working her up for other possible etiologies of secondary hypertension such as hyperaldosteronism, also considering pheochromocytoma and renal artery stenosis (although these are less likely). - Continue current medications p.o. including now alpha blockade-also still requiring nicardipene gtt, try to wean this down as tolerated - Follow further recommendations from endocrinology team to further investigate any potential hyperaldosteronism source/etiology of her hypertension . # DVT prophylaxis: SCDs 40 minutes critical care time spent on this patient today. Result Diagram: 05/18/19 0455 05/21/19 0628 Results 24hrs Laboratory Tests Test 05/20/19 17:53 05/20/19 20:37 05/21/19 00:14 05/21/19 05:40 Bedside Glucose 137 146 154 141 Test 05/21/19 06:28 05/21/19 09:40 Sodium Level 142 Potassium Level 3.9 Chloride Level 101 Carbon Dioxide Level 30 Anion Gap 11 Blood Urea Nitrogen 14 Creatinine 0.78 Est Glomerular > 60 Filtrat Rate mL/min Glucose Level 159 Calcium Level 9.2 Bedside Glucose 138 Exam/Review of Systems Exam Vitals Vital Signs Date Temp Pulse Resp B/P (MAP) Pulse Ox O2 O2 Flow FiO2 Time Delivery Rate 05/21/19 74 23 131/79 97 Room Air 10:00 (96) 05/21/19 98.2 08:00 05/18/19 18:45 05/18/19 2.0 16:54 Intake and Output 05/20/19 05/20/19 05/21/19 1515:00 23:00 07:00 IntakeIntake Total 780 ml 1095 ml 715 ml OutputOutput Total 1020 ml 1670 ml 1850 ml BalanceBalance -240 ml -575 ml -1135 ml Results Results 24hrs Laboratory Tests Test 05/20/19 17:53 05/20/19 20:37 05/21/19 00:14 05/21/19 05:40 Bedside Glucose 137 146 154 141 Test 05/21/19 06:28 05/21/19 09:40 Sodium Level 142 Potassium Level 3.9 Chloride Level 101 Carbon Dioxide Level 30 Anion Gap 11 Blood Urea Nitrogen 14 Creatinine 0.78 Est Glomerular > 60 Filtrat Rate mL/min Glucose Level 159 Calcium Level 9.2 Bedside Glucose 138 Medications Medication Current Medications IV Flush (NS 3 ml) 3 ml PER PROTOCOL IV ; Start 05/09/19 at 00:00 Ondansetron HCl (Zofran Inj) 4 mg Q6H PRN IV NAUSEA/VOMITING; Start 05/09/19 at 00:00 Docusate Sodium (Colace) 100 mg Q12H PRN PO .CONSTIPATION; Start 05/09/19 at 00:00 Magnesium Hydroxide (Milk Of Mag) 30 ml DAILY PRN PO .CONSTIPATION; Start 05/09/19 at 00:00 Nitroglycerin (Nitroglycerin (Sl Tab) 0.4 Mg) 1 tab Q5M PRN SL ANGINA; Start 05/09/19 at 00:00 Insulin Aspart (Novolog Insulin Pen) NOVOLOG *MODERATE* ALGORI... Q4 SC Last administered on 05/21/19at 05:43; Admin Dose 2 UNIT; Start 05/09/19 at 18:00 Miscellaneous Information 1 ea NOTE XX ; Start 05/09/19 at 17:00 Glucose (Glutose) 15 gm Q15M PRN PO DECREASED GLUCOSE; Start 05/09/19 at 17:00 Glucose (Glutose) 22.5 gm Q15M PRN PO DECREASED GLUCOSE; Start 05/09/19 at 17:00 Dextrose (D50w Syringe) 25 ml Q15M PRN IV DECREASED GLUCOSE; Start 05/09/19 at 17:00 Dextrose (D50w Syringe) 50 ml Q15M PRN IV DECREASED GLUCOSE; Start 05/09/19 at 17:00 Glucagon (Glucagen) 1 mg Q15M PRN IM DECREASED GLUCOSE; Start 05/09/19 at 17:00 Glucose (Glutose) 15 gm Q15M PRN BUCCAL DECREASED GLUCOSE; Start 05/09/19 at 17:00 Atorvastatin Calcium (Lipitor) 80 mg HS NGT Last administered on 05/20/19at 20:39; Admin Dose 80 MG; Start 05/11/19 at 21:00 Insulin Glargine (Lantus) 10 units DAILY@2000 SC Last administered on 05/20/19at 20:42; Admin Dose 10 UNITS; Start 05/11/19 at 20:00 IV Flush (NS 10 ml) 10 ml PRN PRN IV IV PROTOCOL; Start 05/13/19 at 14:00 Metoprolol Tartrate (Lopressor) 200 mg BID NGT Last administered on 05/21/19at 09:38; Admin Dose 200 MG; Start 05/14/19 at 09:15 Lisinopril (Zestril) 40 mg BID GTB Last administered on 05/21/19 09:37; Admin Dose 40 MG; Start 05/15/19 at 09:00 Aspirin (Aspirin) 81 mg DAILY NGT Last administered on 05/21/19 09:38; Admin Dose 81 MG; Start 05/16/19 at 15:00 Tramadol HCl (Ultram) 50 mg Q6H PRN NGT MODERATE PAIN LEVEL 4-6 Last administered on 05/19/19 16:18; Admin Dose 50 MG; Start 05/18/19 at 11:00 Nicardipine HCl 50 mg/Sodium Chloride 500 ml @ 0 mls/hr TITRATE IV Last administered on 05/21/19 07:43; Admin Dose 100 MLS/HR; Start 05/18/19 at 19:30 Acetaminophen (Tylenol Liquid) 650 mg Q6H PRN NGT .PAIN 1-3 OR TEMP; Start 05/19/19 at 00:00 Famotidine (Pepcid) 20 mg Q12 NGT Last administered on 05/21/19 09:38; Admin Dose 20 MG; Start 05/18/19 at 21:00 Hydralazine HCl (Apresoline) 100 mg Q8 NGT Last administered on 05/21/19 05:42; Admin Dose 100 MG; Start 05/18/19 at 22:00 Nifedipine (Procardia) 10 mg Q6 NGT Last administered on 05/21/19 05:42; Admin Dose 10 MG; Start 05/19/19 at 00:00 Spironolactone (Aldactone) 100 mg BID NGT Last administered on 05/21/19 09:38; Admin Dose 100 MG; Start 05/19/19 at 21:00 Hydralazine HCl (Apresoline) 10 mg Q4H PRN IV ELEVATED BLOOD PRESSURE Last administered on 05/20/19 14:14; Admin Dose 10 MG; Start 05/19/19 at 20:00 Labetalol HCl (Labetalol) 10 mg Q4H PRN IV sys bp > 160 Last administered on 05/21/19 03:39; Admin Dose 10 MG; Start 05/19/19 at 17:17 Eye Lubricant (Artificial Tears Oph) 1 drop TID BOTH EYES Last administered on 05/21/19at 09:35; Admin Dose 1 DROP; Start 05/20/19 at 13:00 Lorazepam (Ativan) 1 mg Q8H PRN IV agitation; Start 05/20/19 at 17:00 Doxazosin Mesylate (Cardura) 2 mg BID NGT ; Start 05/21/19 at 12:00 DAMIEN CHOUDHARY May 21, 2019 12:34
[2019-05-21] MEDS: DOXAZOSIN 1 MG TAB NGT SCH ×2 (12:37→21:07)
--- NOTE | 2019-05-21 12:57 | CONS ---
Assessment/Plan Assessment/Plan Assessment/Plan (Recall) 39 F c/ reported Hx of DM2, who presents for evaluation of multiple complaints, including GI Sx...and eventual ams, for which neurology is consulted. 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 The clinical picture was initially concerning for meningoencephalitis..CSF evaluation is inconsistent w/ infection...the erythrocytosis possibly due to a traumatic tap.. Head CT was notable for a left frontal hyperdensity, likely hemorrhagic t ransformation of an above referenced focus of acute ischemia is the context of severe hypertension.. CTA head and neck is negative for multifocal stenoses, which might otherwise suggests vasculitis, etc. TTE is unrevealing EEG was without epileptiform activity Ammonia wnl, HIV/RPR neg, ESR wnl Hypercoagulability panel is in progress, so far negative.. P Continue asa for secondary stroke prevention Consider SOFIA for further characterization Continued BP control to goal normotension PT/OT/ST when able Continue to hold all sedating medications where possible Other management and supportive care per primary Will follow clinically Consultation Date/Type/Reason Admit Date/Time May 08, 2019 at 23:21 Type of Consult Neurology Reason for Consultation ams Requesting Provider: DAMIEN CHOUDHARY Date/Time of Note DATE: 05/21/19 TIME: 12:57 24 HR Interval Summary Free Text/Dictation Continues icu care Exam/Review of Systems Exam Vitals Vital Signs Date Temp Pulse Resp B/P (MAP) Pulse Ox O2 O2 Flow FiO2 Time Delivery Rate 05/21/19 74 23 131/79 97 Room Air 10:00 (96) 05/21/19 98.2 08:00 05/18/19 21 18:45 05/18/19 2.0 16:54 Intake and Output 05/20/19 05/20/19 05/21/19 1515:00 23:00 07:00 IntakeIntake Total 780 ml 1095 ml 715 ml OutputOutput Total 1020 ml 1670 ml 1850 ml BalanceBalance -240 ml -575 ml -1135 ml Results Result Diagram: 05/18/19 0455 05/21/19 0628 Results 24hrs Laboratory Tests Test 05/20/19 17:53 05/20/19 20:37 05/21/19 00:14 05/21/19 05:40 Bedside Glucose 137 146 154 141 Test 05/21/19 06:28 05/21/19 09:40 05/21/19 12:47 Sodium Level 142 Potassium Level 3.9 Chloride Level 101 Carbon Dioxide Level 30 Anion Gap 11 Blood Urea Nitrogen 14 Creatinine 0.78 Est Glomerular > 60 Filtrat Rate mL/min Glucose Level 159 Calcium Level 9.2 Bedside Glucose 138 134 Medications Medication Current Medications IV Flush (NS 3 ml) 3 ml PER PROTOCOL IV ; Start 05/09/19 at 00:00 Ondansetron HCl (Zofran Inj) 4 mg Q6H PRN IV NAUSEA/VOMITING; Start 05/09/19 at 00:00 Docusate Sodium (Colace) 100 mg Q12H PRN PO .CONSTIPATION; Start 05/09/19 at 00:00 Magnesium Hydroxide (Milk Of Mag) 30 ml DAILY PRN PO .CONSTIPATION; Start 05/09/19 at 00:00 Nitroglycerin (Nitroglycerin (Sl Tab) 0.4 Mg) 1 tab Q5M PRN SL ANGINA; Start 05/09/19 at 00:00 Insulin Aspart (Novolog Insulin Pen) NOVOLOG *MODERATE* ALGORI... Q4 SC Last administered on 05/21/19at 05:43; Admin Dose 2 UNIT; Start 05/09/19 at 18:00 Miscellaneous Information 1 ea NOTE XX ; Start 05/09/19 at 17:00 Glucose (Glutose) 15 gm Q15M PRN PO DECREASED GLUCOSE; Start 05/09/19 at 17:00 Glucose (Glutose) 22.5 gm Q15M PRN PO DECREASED GLUCOSE; Start 05/09/19 at 17:00 Dextrose (D50w Syringe) 25 ml Q15M PRN IV DECREASED GLUCOSE; Start 05/09/19 at 17:00 Dextrose (D50w Syringe) 50 ml Q15M PRN IV DECREASED GLUCOSE; Start 05/09/19 at 17:00 Glucagon (Glucagen) 1 mg Q15M PRN IM DECREASED GLUCOSE; Start 05/09/19 at 17:00 Glucose (Glutose) 15 gm Q15M PRN BUCCAL DECREASED GLUCOSE; Start 05/09/19 at 17:00 Atorvastatin Calcium (Lipitor) 80 mg HS NGT Last administered on 05/20/19at 20:39; Admin Dose 80 MG; Start 05/11/19 at 21:00 Insulin Glargine (Lantus) 10 units DAILY@2000 SC Last administered on 05/20/19 20:42; Admin Dose 10 UNITS; Start 05/11/19 at 20:00 IV Flush (NS 10 ml) 10 ml PRN PRN IV IV PROTOCOL; Start 05/13/19 at 14:00 Metoprolol Tartrate (Lopressor) 200 mg BID NGT Last administered on 05/21/19 09:38; Admin Dose 200 MG; Start 05/14/19 at 09:15 Lisinopril (Zestril) 40 mg BID GTB Last administered on 05/21/19 09:37; Admin Dose 40 MG; Start 05/15/19 at 09:00 Aspirin (Aspirin) 81 mg DAILY NGT Last administered on 05/21/19 09:38; Admin Dose 81 MG; Start 05/16/19 at 15:00 Tramadol HCl (Ultram) 50 mg Q6H PRN NGT MODERATE PAIN LEVEL 4-6 Last administered on 05/19/19 16:18; Admin Dose 50 MG; Start 05/18/19 at 11:00 Nicardipine HCl 50 mg/Sodium Chloride 500 ml @ 0 mls/hr TITRATE IV Last administered on 05/21/19 07:43; Admin Dose 100 MLS/HR; Start 05/18/19 at 19:30 Acetaminophen (Tylenol Liquid) 650 mg Q6H PRN NGT .PAIN 1-3 OR TEMP; Start 05/19/19 at 00:00 Famotidine (Pepcid) 20 mg Q12 NGT Last administered on 05/21/19 09:38; Admin Dose 20 MG; Start 05/18/19 at 21:00 Hydralazine HCl (Apresoline) 100 mg Q8 NGT Last administered on 05/21/19 05:42; Admin Dose 100 MG; Start 05/18/19 at 22:00 Nifedipine (Procardia) 10 mg Q6 NGT Last administered on 05/21/19 12:37; Admin Dose 10 MG; Start 05/19/19 at 00:00 Spironolactone (Aldactone) 100 mg BID NGT Last administered on 05/21/19 09:38; Admin Dose 100 MG; Start 05/19/19 at 21:00 Hydralazine HCl (Apresoline) 10 mg Q4H PRN IV ELEVATED BLOOD PRESSURE Last administered on 05/20/19 14:14; Admin Dose 10 MG; Start 05/19/19 at 20:00 Labetalol HCl (Labetalol) 10 mg Q4H PRN IV sys bp > 160 Last administered on 05/21/19 03:39; Admin Dose 10 MG; Start 05/19/19 at 17:17 Eye Lubricant (Artificial Tears Oph) 1 drop TID BOTH EYES Last administered on 05/21/19at 12:38; Admin Dose 1 DROP; Start 05/20/19 at 13:00 Lorazepam (Ativan) 1 mg Q8H PRN IV agitation; Start 05/20/19 at 17:00 Doxazosin Mesylate (Cardura) 2 mg BID NGT Last administered on 05/21/19 12:37; Admin Dose 2 MG; Start 05/21/19 at 12:00 JOSÉ TORO May 21, 2019 12:57
[2019-05-21] MEDS: INSULIN GLARGINE [LANTus] (100 UNITS/ML) SYG SC SCH (21:00)
[2019-05-21] MEDS: ATORVASTATIN 80 MG TAB NGT SCH (21:09)
[2019-05-22] VITALS (94 sets, daily range): BP systolic 97–178; BP diastolic 65–128; PULSE 59–96; RESP 12–35
[2019-05-22] MEDS: INSULIN ASPART [NOVOLOG] 3 ML PEN SC SCH ×6 (00:04→21:00)
[2019-05-22] MEDS: niCARdipine 50 MG in SOD CHLORIDE 0.9% 480 ML IV SCH ×3 (00:38→10:16)
[2019-05-22] MEDS: hydrALAzine 20 MG INJ IV PRN (05:53)
--- NOTE | 2019-05-22 07:27 | CONS ---
Consult Date/Type/Reason Admit Date/Time May 08, 2019 at 23:21 Initial Consult Date 05/19/19 Type of Consultation: neph Requesting Provider: DAMIEN CHOUDHARY Date/Time of Note DATE: 05/22/19 TIME: 07:24 Subjective 39 F c/ reported Hx of DM2, who presents for evaluation of multiple complaints, including GI Sx...and eventual ams, MRI brain revealed diffuse and acute infarctions...which raises concern for a central embolic source.. The patient is stable, remains on Cardene drip. had head ct and neuro fu pulled out ng and replaced. OBJECTIVE: HEENT: Head is normocephalic. NECK: Supple. HEART: Regular rate. LUNGS: Show diminished breath sounds at the base. ABDOMEN: Soft, nontender to palpation without rebound or guarding. EXTREMITIES: Negative for clubbing, cyanosis. Trace edema. DERMATOLOGIC: No rashes. MUSCULOSKELETAL: No joint effusions. NEUROLOGIC: No change in exam. MEDICATIONS: The patient's medications have been reviewed. Objective Vitals Vital Signs Date Temp Pulse Resp B/P (MAP) Pulse Ox O2 O2 Flow FiO2 Time Delivery Rate 05/22/19 76 32 172/89 95 06:15 (116) 05/22/19 Room Air 06:00 05/22/19 98.2 04:00 05/18/19 21 18:45 05/18/19 2.0 16:54 Intake and Output 05/21/19 05/21/19 05/22/19 1515:00 23:00 07:00 IntakeIntake Total 1106.25 ml 965.0 ml 735 ml OutputOutput Total 1655 ml 1555 ml 1280 ml BalanceBalance -548.75 ml -590.0 ml -545 ml Results/Medications Result Diagram: 05/18/19 0455 05/21/19 0628 Results 24 hrs Laboratory Tests Test 05/21/19 09:40 05/21/19 12:47 05/21/19 17:24 05/21/19 20:58 Bedside Glucose 138 134 162 158 Test 05/21/19 23:56 05/22/19 05:18 Bedside Glucose 147 122 Home Meds Reported Medications Lisinopril* (Lisinopril*) 20 Mg Tablet, 20 MG PO BID, #30 TAB 05/09/19 Hydralazine Hcl* (Hydralazine Hcl*) 100 Mg Tablet, 100 MG PO Q8, #90 TAB 05/09/19 Glimepiride* (Glimepiride*) 2 Mg Tablet, 2 MG PO WITH BREAKFAST, TAB 05/09/19 Metformin Hcl* (Metformin Hcl*) 1,000 Mg Tablet, 1000 MG PO WITH BREAKFAST DINNE , #60 TAB 05/09/19 Famotidine* (Famotidine*) 20 Mg Tablet, 20 MG PO BID, #60 TAB 05/09/19 Medications Current Medications IV Flush (NS 3 ml) 3 ml PER PROTOCOL IV ; Start 05/09/19 at 00:00 Ondansetron HCl (Zofran Inj) 4 mg Q6H PRN IV NAUSEA/VOMITING; Start 05/09/19 at 00:00 Docusate Sodium (Colace) 100 mg Q12H PRN PO .CONSTIPATION; Start 05/09/19 at 00:00 Magnesium Hydroxide (Milk Of Mag) 30 ml DAILY PRN PO .CONSTIPATION; Start at 00:00 Nitroglycerin (Nitroglycerin (Sl Tab) 0.4 Mg) 1 tab Q5M PRN SL ANGINA; Start 05/09/19 at 00:00 Insulin Aspart (Novolog Insulin Pen) NOVOLOG *MODERATE* ALGORI... Q4 SC Last administered on 05/22/19at 00:04; Admin Dose 2 UNIT; Start 05/09/19 at 18:00 Miscellaneous Information 1 ea NOTE XX ; Start 05/09/19 at 17:00 Glucose (Glutose) 15 gm Q15M PRN PO DECREASED GLUCOSE; Start 05/09/19 at 17:00 Glucose (Glutose) 22.5 gm Q15M PRN PO DECREASED GLUCOSE; Start 05/09/19 at 17:00 Dextrose (D50w Syringe) 25 ml Q15M PRN IV DECREASED GLUCOSE; Start 05/09/19 at 17:00 Dextrose (D50w Syringe) 50 ml Q15M PRN IV DECREASED GLUCOSE; Start 05/09/19 at 17:00 Glucagon (Glucagen) 1 mg Q15M PRN IM DECREASED GLUCOSE; Start 05/09/19 at 17:00 Glucose (Glutose) 15 gm Q15M PRN BUCCAL DECREASED GLUCOSE; Start 05/09/19 at 17:00 Atorvastatin Calcium (Lipitor) 80 mg HS NGT Last administered on 05/21/19 21:09; Admin Dose 80 MG; Start 05/11/19 at 21:00 Insulin Glargine (Lantus) 10 units DAILY@2000 SC Last administered on 05/21/19 21:00; Admin Dose 10 UNITS; Start 05/11/19 at 20:00 IV Flush (NS 10 ml) 10 ml PRN PRN IV IV PROTOCOL; Start 05/13/19 at 14:00 Metoprolol Tartrate (Lopressor) 200 mg BID NGT Last administered on 05/21/19 21:08; Admin Dose 200 MG; Start 05/14/19 at 09:15 Lisinopril (Zestril) 40 mg BID GTB Last administered on 05/21/19 21:09; Admin Dose 40 MG; Start 05/15/19 at 09:00 Aspirin (Aspirin) 81 mg DAILY NGT Last administered on 05/21/19 09:38; Admin Dose 81 MG; Start 05/16/19 at 15:00 Tramadol HCl (Ultram) 50 mg Q6H PRN NGT MODERATE PAIN LEVEL 4-6 Last adminis tered on 05/19/19 16:18; Admin Dose 50 MG; Start 05/18/19 at 11:00 Nicardipine HCl 50 mg/Sodium Chloride 500 ml @ 0 mls/hr TITRATE IV Last administered on 05/22/19 05:54; Admin Dose 105 MLS/HR; Start 05/18/19 at 19:30 Acetaminophen (Tylenol Liquid) 650 mg Q6H PRN NGT .PAIN 1-3 OR TEMP; Start at 00:00 Famotidine (Pepcid) 20 mg Q12 NGT Last administered on 05/21/19 21:08; Admin Dose 20 MG; Start 05/18/19 at 21:00 Hydralazine HCl (Apresoline) 100 mg Q8 NGT Last administered on 05/21/19at 21:08; Admin Dose 100 MG; Start 05/18/19 at 22:00 Nifedipine (Procardia) 10 mg Q6 NGT Last administered on 05/21/19at 23:58; Admin Dose 10 MG; Start 05/19/19 at 00:00 Spironolactone (Aldactone) 100 mg BID NGT Last administered on 05/21/19 21:08; Admin Dose 100 MG; Start 05/19/19 at 21:00 Hydralazine HCl (Apresoline) 10 mg Q4H PRN IV ELEVATED BLOOD PRESSURE Last administered on 05/22/19 05:53; Admin Dose 10 MG; Start 05/19/19 at 20:00 Labetalol HCl (Labetalol) 10 mg Q4H PRN IV sys bp > 160 Last administered on 05/21/19at 03:39; Admin Dose 10 MG; Start 05/19/19 at 17:17 Eye Lubricant (Artificial Tears Oph) 1 drop TID BOTH EYES Last administered on 05/21/19 21:07; Admin Dose 1 DROP; Start 05/20/19 at 13:00 Lorazepam (Ativan) 1 mg Q8H PRN IV agitation; Start 05/20/19 at 17:00 Doxazosin Mesylate (Cardura) 2 mg BID NGT Last administered on 05/21/19 21:07; Admin Dose 2 MG; Start 05/21/19 at 12:00 Assessment/Plan Hospital Course (Demo Recall) 1. Nonoliguric acute kidney injury with previous baseline creatinine of 0.72 mg/dL. Etiology of acute kidney injury is secondary to nephrotoxicity, hemodynamics. Renal function has improved. Continue current treatment plans, supportive care, renally dose all meds. watch for diuretic phase of elen with electrolyte wasting. all meds dosed ok. 2. Volume overload. improved. Continue intermittent diuretic therapy as needed. Monitor I's and O's closely. 3. Hyperkalemia, improved. 4. Hypomagnesemia, improved. Continue to monitor. 5. Mineral bone disorder. Monitor calcium and phosphorus levels. 6. Acute encephalopathy. Etiology is secondary to acute cerebrovascular accident. Continue medical management. 7. Hypertensive urgency. The patient is being evaluated for possible secondary etiology of hypertension. Continue to wean off Cardene drip. Continue to adjust blood pressure medications. 8. Respiratory failure, status post extubation. Continue to monitor. 9. History of cerebrovascular accident with frontal hematoma. Continue medical management. 10. Tachyarrhythmia. 11. Systemic inflammatory response syndrome. 11. Hypernatremia, improved. CRISTINA COON MD May 22, 2019 07:27
--- NOTE | 2019-05-22 09:10 | PN ---
Date/Time of Note Date/Time of Note DATE: 05/22/19 TIME: 09:05 Assessment/Plan VTE Prophylaxis Risk score (from Ns)>0 risk: 9 SCD applied (from Nsg): Yes Pharmacological prophylaxis: other Lines/Catheters IV Catheter Type (from Nrsg): Mid Line Urinary Cath still in place: Yes Reason Cath still needed: urinary retention Assessment/Plan Hospital Course S: Patient still in restraints and on the Cardene drip. O: VS - see below PE: Gen: Morbidly obese woman lying supine in bed, lethargic still somewhat confused Eyes: Slightly injected conjunctivae. Normal pupils ENT: Normal External Ears, Nose and Mouth. Moist mucous membranes. Neck: No meningismus. No lymphadenopathy. Resp: Clear to auscultation bilaterally. Cardio: Regular rate and rhythm, no murmurs appreciated. Abd: Soft, obese, nondistended, normal bowel sounds Ext: No lower extremity edema bilaterally Neuro: In restraints, lethargic, but no focal deficits Assessment/Plan: 39-year-old morbidly obese woman with history of HTN who comes in with decreased p.o. intake, lethargy preceded by delirium and nausea and vomiting. 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 #Encephalopathy-slowly improving as patient answers slightly more questions now in Persian, MRI brain showed several new and old infarcts concerning for central embolic source. There there apparently was small frontal bleed which may be hemorrhagic infarct- TTE done without evidence of vegetations or thrombus - HIV negative - No concern for infectious meningitis based on LP, patient presently off antibiotics. Repeat head CT on May 20 showed some improvement in the frontal bleed. - Neurology Dr. Laurent following, monitor, follow-up their recommendations - Limit sedation as much as possible, continue PT and OT as much as possible #GARDENIA - Likely due to iatrogenic vancomycin toxicity-resolved - Dr. Haas following, monitor for now #Respiratory failure- Intubated earlier this admission due to poor mental status, but self extubated on May 15, [address] since that time - Currently protecting airway, monitor # Hypertension: Still on Cardene drip, adjustments made to the dosages and new p.o. regimen added a few days ago. Appreciate endocrinology consult, patient currently being worked up for other possible etiologies of secondary hypertension such as hyperaldosteronism, also considering pheochromocytoma and renal artery stenosis (although these are less likely). - Continue current medications p.o. including now alpha blockade-also still requiring nicardipene gtt, try to wean this down as tolerated - Follow further recommendations from endocrinology team to further investigate any potential hyperaldosteronism source/etiology of her hypertension. # DVT prophylaxis: SCDs 45 minutes critical care time spent on this patient today. Result Diagram: 05/18/19 0455 05/21/19 0628 Results 24hrs Laboratory Tests Test 05/21/19 09:40 05/21/19 12:47 05/21/19 17:24 05/21/19 20:58 Bedside Glucose 138 134 162 158 Test 05/21/19 23:56 05/22/19 05:18 Bedside Glucose 147 122 Exam/Review of Systems Exam Vitals Vital Signs Date Temp Pulse Resp B/P (MAP) Pulse Ox O2 O2 Flow FiO2 Time Delivery Rate 05/22/19 96 08:01 05/22/19 32 172/89 95 06:15 (116) 05/22/19 Room Air 06:00 05/22/19 98.2 04:00 05/18/19 21 18:45 05/18/19 2.0 16:54 Intake and Output 05/21/19 05/21/19 05/22/19 1515:00 23:00 07:00 IntakeIntake Total 1106.25 ml 965.0 ml 735 ml OutputOutput Total 1655 ml 1555 ml 1280 ml BalanceBalance -548.75 ml -590.0 ml -545 ml Results Results 24hrs Laboratory Tests Test 05/21/19 09:40 05/21/19 12:47 05/21/19 17:24 05/21/19 20:58 Bedside Glucose 138 134 162 158 Test 05/21/19 23:56 05/22/19 05:18 Bedside Glucose 147 122 Medications Medication Current Medications IV Flush (NS 3 ml) 3 ml PER PROTOCOL IV ; Start 05/09/19 at 00:00 Ondansetron HCl (Zofran Inj) 4 mg Q6H PRN IV NAUSEA/VOMITING; Start 05/09/19 at 00:00 Docusate Sodium (Colace) 100 mg Q12H PRN PO .CONSTIPATION; Start 05/09/19 at 00:00 Magnesium Hydroxide (Milk Of Mag) 30 ml DAILY PRN PO .CONSTIPATION; Start 05/09/19 at 00:00 Nitroglycerin (Nitroglycerin (Sl Tab) 0.4 Mg) 1 tab Q5M PRN SL ANGINA; Start 05/09/19 at 00:00 Insulin Aspart (Novolog Insulin Pen) NOVOLOG *MODERATE* ALGORI... Q4 SC Last administered on 05/22/19at 00:04; Admin Dose 2 UNIT; Start 05/09/19 at 18:00 Miscellaneous Information 1 ea NOTE XX ; Start 05/09/19 at 17:00 Glucose (Glutose) 15 gm Q15M PRN PO DECREASED GLUCOSE; Start 05/09/19 at 17:00 Glucose (Glutose) 22.5 gm Q15M PRN PO DECREASED GLUCOSE; Start 05/09/19 at 17:00 Dextrose (D50w Syringe) 25 ml Q15M PRN IV DECREASED GLUCOSE; Start 05/09/19 at 17:00 Dextrose (D50w Syringe) 50 ml Q15M PRN IV DECREASED GLUCOSE; Start 05/09/19 at 17:00 Glucagon (Glucagen) 1 mg Q15M PRN IM DECREASED GLUCOSE; Start 05/09/19 at 17:00 Glucose (Glutose) 15 gm Q15M PRN BUCCAL DECREASED GLUCOSE; Start 05/09/19 at 17:00 Atorvastatin Calcium (Lipitor) 80 mg HS NGT Last administered on 05/21/19at 21:09; Admin Dose 80 MG; Start 05/11/19 at 21:00 Insulin Glargine (Lantus) 10 units DAILY@2000 SC Last administered on 05/21/19at 21:00; Admin Dose 10 UNITS; Start 05/11/19 at 20:00 IV Flush (NS 10 ml) 10 ml PRN PRN IV IV PROTOCOL; Start 05/13/19 at 14:00 Metoprolol Tartrate (Lopressor) 200 mg BID NGT Last administered on 05/21/19at 21:08; Admin Dose 200 MG; Start 05/14/19 at 09:15 Lisinopril (Zestril) 40 mg BID GTB Last administered on 05/21/19at 21:09; Admin Dose 40 MG; Start 05/15/19 at 09:00 Aspirin (Aspirin) 81 mg DAILY NGT Last administered on 05/21/19at 09:38; Admin Dose 81 MG; Start 05/16/19 at 15:00 Tramadol HCl (Ultram) 50 mg Q6H PRN NGT MODERATE PAIN LEVEL 4-6 Last admi nistered on 05/19/19 16:18; Admin Dose 50 MG; Start 05/18/19 at 11:00 Nicardipine HCl 50 mg/Sodium Chloride 500 ml @ 0 mls/hr TITRATE IV Last administered on 05/22/19 05:54; Admin Dose 105 MLS/HR; Start 05/18/19 at 19:30 Acetaminophen (Tylenol Liquid) 650 mg Q6H PRN NGT .PAIN 1-3 OR TEMP; Start 05/19/19 at 00:00 Famotidine (Pepcid) 20 mg Q12 NGT Last administered on 05/21/19 21:08; Admin Dose 20 MG; Start 05/18/19 at 21:00 Hydralazine HCl (Apresoline) 100 mg Q8 NGT Last administered on 05/21/19 21:08; Admin Dose 100 MG; Start 05/18/19 at 22:00 Nifedipine (Procardia) 10 mg Q6 NGT Last administered on 05/21/19 23:58; Admin Dose 10 MG; Start 05/19/19 at 00:00 Spironolactone (Aldactone) 100 mg BID NGT Last administered on 05/21/19 21:08; Admin Dose 100 MG; Start 05/19/19 at 21:00 Hydralazine HCl (Apresoline) 10 mg Q4H PRN IV ELEVATED BLOOD PRESSURE Last administered on 05/22/19 05:53; Admin Dose 10 MG; Start 05/19/19 at 20:00 Labetalol HCl (Labetalol) 10 mg Q4H PRN IV sys bp > 160 Last administered on 05/21/19 03:39; Admin Dose 10 MG; Start 05/19/19 at 17:17 Eye Lubricant (Artificial Tears Oph) 1 drop TID BOTH EYES Last administered on 05/21/19 21:07; Admin Dose 1 DROP; Start 05/20/19 at 13:00 Lorazepam (Ativan) 1 mg Q8H PRN IV agitation; Start 05/20/19 at 17:00 Doxazosin Mesylate (Cardura) 2 mg BID NGT Last administered on 6/22/19at 21:07; Admin Dose 2 MG; Start 05/21/19 at 12:00 DAMIEN CHOUDHARY May 22, 2019 09:09
[2019-05-22] MEDS: FAMOTIDINE 20 MG TAB NGT SCH ×2 (09:29→21:03)
[2019-05-22] MEDS: ASPIRIN 81 MG TAB NGT SCH (09:30)
[2019-05-22] MEDS: METOPROLOL 100 MG TAB NGT SCH ×2 (09:30→21:02)
[2019-05-22] MEDS: NIFEdipine 10 MG CAP NGT SCH ×3 (09:30→17:16)
[2019-05-22] MEDS: SPIRONOLACTONE 50 MG TAB NGT SCH ×2 (09:30→21:03)
[2019-05-22] MEDS: DOXAZOSIN 1 MG TAB NGT SCH (09:31)
[2019-05-22] MEDS: LISINOPRIL 20 MG TAB GTB SCH ×2 (09:32→21:03)
[2019-05-22] MEDS: ARTIFICIAL TEARS 15 ML OPH BOTH EYES SCH ×3 (09:32→21:04)
--- NOTE | 2019-05-22 09:36 | CONS ---
Assessment/Plan Assessment/Plan Assessment/Plan (Daily) Patient is currently on nicardipine drip at 12.5 mg/h. Assessment and recommendations; 1. Patient admitted with hypertensive crisis with intracranial bleed with gradual interval neurological improvement. 2. Status post self extubation few days ago with stable pulmonary status. 3. Persistent refractory hypotension, requiring nicardipine drip. Patient on a very aggressive antihypertensive regimen. 4. History of diabetes. Continue current supportive care. Consultation Date/Type/Reason Admit Date/Time May 08, 2019 at 23:21 Initial Consult Date 05/10/19 Type of Consult Pulmonary/critical care Patient is a 39-year-old lady who came into the hospital with complaints of nausea vomiting going on for the last 2 days with headache. Upon evaluation patient was extremely hypertensive then developed respiratory failure requiring intubation. Emergent CT imaging of the head was done which is showing intracranial hemorrhage. Patient has remained completely unresponsive. Was started on propofol drip for tachypnea. Past medical history; 1. Hypertension. Medications; reviewed. Allergies; none. Social history, family history, occupational history not available. Review of system; unable to be obtained. General exam; young female, orally intubated, sedated, currently in no distress. Requesting Provider: DAMIEN CHOUDHARY Date/Time of Note DATE: 05/22/19 TIME: 09:34 24 HR Interval Summary Free Text/Dictation Patient's condition is still tenuous. Patient still exhibiting confusion. Requiring nicardipine drip for persistent hypertension. General exam; young female, morbidly obese. Awake and appropriately responsive. Currently no distress. Exam/Review of Systems Exam Vitals Vital Signs Date Temp Pulse Resp B/P (MAP) Pulse Ox O2 O2 Flow FiO2 Time Delivery Rate 05/22/19 96 08:01 05/22/19 32 172/89 95 06:15 (116) 05/22/19 Room Air 06:00 05/22/19 98.2 04:00 05/18/19 21 18:45 05/18/19 2.0 16:54 Intake and Output 05/21/19 05/21/19 05/22/19 1515:00 23:00 07:00 IntakeIntake Total 1106.25 ml 965.0 ml 735 ml OutputOutput Total 1655 ml 1555 ml 1280 ml BalanceBalance -548.75 ml -590.0 ml -545 ml Exam H EENT exam; supple neck, no JVD. No lymphadenopathy. Midline trachea. No thyromegaly. No neck masses. Pupils are midsize and reactive equally. Patient has fair dentition. Chest exam; diminished but clear breath sounds. S1-S2 audible, no murmurs. Regular rhythm. Abdomen exam; soft, mildly protuberant. Nontender. Bowel sounds audible. Extremity exam; no peripheral edema clubbing. Pulses 2+. REGISTERED NURSE MATERNAL CHILD exam; patient awake follow simple commands but exhibiting confusion. Results Result Diagram: 05/18/19 0455 05/21/19 0628 Results 24hrs Laboratory Tests Test 05/21/19 09:40 05/21/19 12:47 05/21/19 17:24 05/21/19 20:58 Bedside Glucose 138 134 162 158 Test 05/21/19 23:56 05/22/19 05:18 Bedside Glucose 147 122 Medications Medication Current Medications IV Flush (NS 3 ml) 3 ml PER PROTOCOL IV ; Start 05/09/19 at 00:00 Ondansetron HCl (Zofran Inj) 4 mg Q6H PRN IV NAUSEA/VOMITING; Start 05/09/19 at 00:00 Docusate Sodium (Colace) 100 mg Q12H PRN PO .CONSTIPATION; Start 05/09/19 at 00:00 Magnesium Hydroxide (Milk Of Mag) 30 ml DAILY PRN PO .CONSTIPATION; Start 05/09/19 at 00:00 Nitroglycerin (Nitroglycerin (Sl Tab) 0.4 Mg) 1 tab Q5M PRN SL ANGINA; Start 05/09/19 at 00:00 Insulin Aspart (Novolog Insulin Pen) NOVOLOG *MODERATE* ALGORI... Q4 SC Last administered on 05/22/19at 00:04; Admin Dose 2 UNIT; Start 05/09/19 at 18:00 Miscellaneous Information 1 ea NOTE XX ; Start 05/09/19 at 17:00 Glucose (Glutose) 15 gm Q15M PRN PO DECREASED GLUCOSE; Start 05/09/19 at 17:00 Glucose (Glutose) 22.5 gm Q15M PRN PO DECREASED GLUCOSE; Start 05/09/19 at 17:00 Dextrose (D50w Syringe) 25 ml Q15M PRN IV DECREASED GLUCOSE; Start 05/09/19 at 17:00 Dextrose (D50w Syringe) 50 ml Q15M PRN IV DECREASED GLUCOSE; Start 05/09/19 at 17:00 Glucagon (Glucagen) 1 mg Q15M PRN IM DECREASED GLUCOSE; Start 05/09/19 at 17:00 Glucose (Glutose) 15 gm Q15M PRN BUCCAL DECREASED GLUCOSE; Start 05/09/19 at 17:00 Atorvastatin Calcium (Lipitor) 80 mg HS NGT Last administered on 05/21/19at 21:09; Admin Dose 80 MG; Start 05/11/19 at 21:00 Insulin Glargine (Lantus) 10 units DAILY@2000 SC Last administered on 05/21/19at 21:00; Admin Dose 10 UNITS; Start 05/11/19 at 20:00 IV Flush (NS 10 ml) 10 ml PRN PRN IV IV PROTOCOL; Start 05/13/19 at 14:00 Metoprolol Tartrate (Lopressor) 200 mg BID NGT Last administered on 05/21/19at 21:08; Admin Dose 200 MG; Start 05/14/19 at 09:15 Lisinopril (Zestril) 40 mg BID GTB Last administered on 05/21/19 21:09; Admin Dose 40 MG; Start 05/15/19 at 09:00 Aspirin (Aspirin) 81 mg DAILY NGT Last administered on 05/21/19 09:38; Admin Dose 81 MG; Start 05/16/19 at 15:00 Tramadol HCl (Ultram) 50 mg Q6H PRN NGT MODERATE PAIN LEVEL 4-6 Last administered on 05/19/19at 16:18; Admin Dose 50 MG; Start 05/18/19 at 11:00 Nicardipine HCl 50 mg/Sodium Chloride 500 ml @ 0 mls/hr TITRATE IV Last administered on 05/22/19at 05:54; Admin Dose 105 MLS/HR; Start 05/18/19 at 19:30 Acetaminophen (Tylenol Liquid) 650 mg Q6H PRN NGT .PAIN 1-3 OR TEMP; Start 05/19/19 at 00:00 Famotidine (Pepcid) 20 mg Q12 NGT Last administered on 05/21/19at 21:08; Admin Dose 20 MG; Start 05/18/19 at 21:00 Hydralazine HCl (Apresoline) 100 mg Q8 NGT Last administered on 05/21/19 21:08; Admin Dose 100 MG; Start 05/18/19 at 22:00 Nifedipine (Procardia) 10 mg Q6 NGT Last administered on 05/21/19 23:58; Admin Dose 10 MG; Start 05/19/19 at 00:00 Spironolactone (Aldactone) 100 mg BID NGT Last administered on 05/21/19 21:08; Admin Dose 100 MG; Start 05/19/19 at 21:00 Hydralazine HCl (Apresoline) 10 mg Q4H PRN IV ELEVATED BLOOD PRESSURE Last administered on 05/22/19 05:53; Admin Dose 10 MG; Start 05/19/19 at 20:00 Labetalol HCl (Labetalol) 10 mg Q4H PRN IV sys bp > 160 Last administered on 05/21/19 03:39; Admin Dose 10 MG; Start 05/19/19 at 17:17 Eye Lubricant (Artificial Tears Oph) 1 drop TID BOTH EYES Last administered on 05/21/19at 21:07; Admin Dose 1 DROP; Start 05/20/19 at 13:00 Lorazepam (Ativan) 1 mg Q8H PRN IV agitation; Start 05/20/19 at 17:00 Doxazosin Mesylate (Cardura) 2 mg BID NGT Last administered on 05/21/19 21:07; Admin Dose 2 MG; Start 05/21/19 at 12:00 JAYSON WASSERMAN May 22, 2019 09:36
--- NOTE | 2019-05-22 10:00 | CONS ---
Assessment/Plan Assessment/Plan Problems: (1) Hypertension Status: Chronic Comment: BP remains profoundly elevated. Continues to require nicardipine drip. Will increase doxazosin again to 4 mg bid. Consider clonidine. Qualifiers: Hypertension type: unspecified Qualified Codes: I10 - Essential (primary) hypertension (2) Diabetes mellitus type 2 in obese Status: Chronic Comment: Good glycemic control. Cont. lantus 10 units qhs Consultation Date/Type/Reason Admit Date/Time May 08, 2019 at 23:21 Initial Consult Date 05/19/19 Type of Consult Endocrinology Reason for Consultation Secondary HTN Requesting Provider: DAMIEN CHOUDHARY Date/Time of Note DATE: 05/22/19 TIME: 09:58 24 HR Interval Summary Constitutional: disoriented (asking for her ) Exam/Review of Systems Exam Vitals VS - Last 72 Hours, by Label Date Temp Pulse Resp B/P (MAP) Pulse Ox O2 O2 Flow FiO2 Time Delivery Rate 05/22/19 96 08:01 05/22/19 76 32 172/89 95 06:15 (116) 05/22/19 77 25 169/87 96 Room Air 06:00 (114) 05/22/19 73 34 169/88 96 05:45 (115) 05/22/19 78 22 154/111 95 05:30 (125) 05/22/19 75 26 167/94 97 05:15 (118) 05/22/19 73 23 166/89 96 Room Air 05:00 (114) 05/22/19 75 26 169/86 95 04:45 (113) 05/22/19 75 29 173/93 95 04:30 (119) 05/22/19 74 33 178/117 93 04:15 (137) 05/22/19 98.2 77 27 168/94 98 Room Air 04:00 (118) 05/22/19 75 04:00 05/22/19 73 25 173/94 95 03:45 (120) 05/22/19 162/84 97 03:30 (110) 05/22/19 71 26 156/87 94 03:15 (110) 05/22/19 72 28 165/87 96 Room Air 03:00 (113) 05/22/19 70 28 157/81 98 02:45 (106) 05/22/19 72 25 164/86 92 02:30 (112) 05/22/19 71 29 158/85 96 02:15 (109) 05/22/19 71 25 142/74 96 Room Air 02:00 (96) 05/22/19 72 22 121/109 95 01:45 (113) 05/22/19 72 23 97 01:30 05/22/19 98 01:15 05/22/19 69 21 139/72 96 Room Air 01:00 (94) 05/22/19 70 23 143/82 97 00:45 (102) 05/22/19 70 20 121/70 99 00:30 (87) 05/22/19 73 26 148/112 98 00:15 (124) 05/22/19 65 00:00 05/22/19 99.0 69 25 149/82 95 Room Air 00:00 (104) 05/21/19 67 18 144/84 95 23:45 (104) 05/21/19 66 23 147/85 98 23:30 (105) 05/21/19 68 24 153/75 98 23:15 (101) 05/21/19 69 28 137/84 95 Room Air 23:00 (101) 05/21/19 59 21 136/78 98 22:45 (97) 05/21/19 64 21 148/81 95 22:30 (103) 05/21/19 60 17 138/76 97 22:15 (96) 05/21/19 63 16 146/78 98 Room Air 22:00 (100) 05/21/19 63 21 145/82 96 21:45 (103) 05/21/19 69 23 149/86 94 21:30 (107) 05/21/19 85 19 175/84 95 21:15 (114) 05/21/19 79 30 173/83 96 Room Air 21:00 (113) 05/21/19 83 25 165/80 95 20:45 (108) 05/21/19 81 22 169/83 97 20:30 (111) 05/21/19 74 17 166/95 96 20:15 (118) 05/21/19 98.6 20:00 05/21/19 81 25 96 Room Air 20:00 05/21/19 81 20:00 05/21/19 81 30 163/85 98 19:45 (111) 05/21/19 75 22 152/70 95 19:30 (97) 05/21/19 78 17 143/92 98 19:15 (109) 05/21/19 75 20 159/79 96 Room Air 19:00 (105) 05/21/19 80 23 139/120 98 18:45 (126) 05/21/19 76 25 142/71 96 18:30 (94) 05/21/19 76 18 133/70 97 18:15 (91) 05/21/19 74 22 133/71 100 Room Air 18:00 (91) 05/21/19 79 22 126/67 97 17:45 (86) 05/21/19 80 19 147/80 96 17:30 (102) 05/21/19 79 27 156/87 94 17:15 (110) 05/21/19 74 18 168/84 98 Room Air 17:00 (112) 05/21/19 70 25 153/86 97 16:45 (108) 05/21/19 76 20 173/79 96 16:30 (110) 05/21/19 78 16:00 05/21/19 99.6 74 19 174/91 98 Room Air 16:00 (118) 05/21/19 82 28 170/97 95 15:45 (121) 05/21/19 79 28 162/77 98 15:30 (105) 05/21/19 74 22 155/84 97 15:15 (107) 05/21/19 72 22 154/86 95 Room Air 15:00 (108) 05/21/19 68 19 148/82 97 14:45 (104) 05/21/19 68 29 162/82 93 14:15 (108) 05/21/19 65 16 139/106 99 Room Air 14:00 (117) 05/21/19 64 27 139/87 95 13:45 (104) 05/21/19 67 23 129/86 87 13:30 (100) 05/21/19 69 22 109/97 92 13:15 (101) 05/21/19 72 34 131/76 97 Room Air 13:00 (94) 05/21/19 69 23 164/81 97 12:45 (108) 05/21/19 69 19 167/80 94 12:30 (109) 05/21/19 68 20 158/83 99 12:15 (108) 05/21/19 70 12:00 05/21/19 98.7 71 27 153/81 98 Room Air 12:00 (105) 05/21/19 63 22 159/86 97 11:45 (110) 05/21/19 67 19 154/89 93 11:30 (110) 05/21/19 66 29 171/85 95 11:15 (113) 05/21/19 62 22 162/89 93 Room Air 11:00 (113) 05/21/19 68 26 156/77 97 10:45 (103) 05/21/19 74 23 131/79 97 Room Air 10:00 (96) 05/21/19 87 28 178/82 95 09:45 (114) 05/21/19 91 29 174/84 90 09:30 (114) 05/21/19 93 25 163/85 96 09:15 (111) 05/21/19 85 20 131/89 97 Room Air 09:00 (103) 05/21/19 82 27 143/85 95 08:45 (104) 05/21/19 88 28 155/80 97 08:30 (105) 05/21/19 82 24 156/91 94 08:15 (112) 05/21/19 88 08:00 05/21/19 98.2 80 20 167/91 96 Room Air 08:00 (116) 05/21/19 87 23 154/85 96 07:45 (108) 05/21/19 83 23 150/90 95 07:30 (110) 05/21/19 81 26 136/87 89 07:15 (103) 05/21/19 80 21 161/82 91 Room Air 07:00 (108) 05/21/19 79 25 143/77 89 06:45 (99) 05/21/19 80 27 124/87 92 06:30 (99) 05/21/19 77 22 124/92 88 06:15 (103) 05/21/19 81 145/90 95 Room Air 06:00 (108) 05/21/19 81 26 172/81 88 05:45 (111) 05/21/19 83 23 140/107 85 05:30 (118) 05/21/19 83 24 166/93 90 05:15 (117) 05/21/19 79 16 162/98 93 Room Air 05:00 (119) 05/21/19 83 24 132/94 90 04:45 (107) 05/21/19 79 20 188/106 88 04:30 (133) 05/21/19 82 27 179/100 88 04:15 (126) 05/21/19 97.8 78 30 168/111 92 Room Air 04:00 (130) 05/21/19 82 04:00 05/21/19 78 23 170/106 92 03:45 (127) 05/21/19 84 27 170/94 98 03:30 (119) 05/21/19 78 17 175/103 95 03:15 (127) 05/21/19 72 17 130/97 93 Room Air 03:00 (108) 05/21/19 79 19 93/80 (84) 98 02:45 05/21/19 75 19 126/102 98 02:30 (110) 05/21/19 19 140/89 98 02:15 (106) 05/21/19 73 26 127/114 93 Room Air 02:00 (118) 05/21/19 71 19 130/85 98 01:45 (100) 05/21/19 72 20 114/96 98 01:30 (102) 05/21/19 73 22 122/84 94 01:15 (97) 05/21/19 72 19 111/69 96 Room Air 01:00 (83) 05/21/19 71 24 121/85 97 00:45 (97) 05/21/19 73 27 111/75 97 00:30 (87) 05/21/19 75 29 147/85 97 00:15 (105) 05/21/19 69 00:00 05/21/19 98.5 70 22 124/98 94 Room Air 00:00 (107) 05/20/19 71 19 165/87 99 23:45 (113) 05/20/19 69 33 165/82 92 23:30 (109) 05/20/19 67 22 155/86 100 Room Air 23:15 (109) 05/20/19 70 20 91 23:00 05/20/19 65 20 117/83 99 22:45 (94) 05/20/19 63 27 127/86 92 22:30 (100) 05/20/19 63 24 136/79 96 22:15 (98) 05/20/19 64 21 136/84 92 Room Air 22:00 (101) 05/20/19 63 19 141/84 93 21:45 (103) 05/20/19 66 25 144/85 82 21:30 (104) 05/20/19 68 30 137/86 86 21:15 (103) 05/20/19 73 23 158/92 94 Room Air 21:00 (114) 05/20/19 86 25 175/95 83 20:45 (121) 05/20/19 82 21 161/108 87 20:30 (125) 05/20/19 85 21 92 20:15 05/20/19 79 20:00 05/20/19 97.5 79 21 163/91 88 Room Air 20:00 (115) 05/20/19 82 28 173/100 83 19:45 (124) 05/20/19 84 33 171/123 92 19:30 (139) 05/20/19 82 24 151/104 91 19:15 (120) 05/20/19 78 18 138/86 92 19:00 (103) 05/20/19 79 31 170/94 90 18:45 (119) 05/20/19 78 34 157/102 84 18:30 (120) 05/20/19 84 25 177/97 87 Room Air 17:30 (123) 05/20/19 84 26 153/98 82 Room Air 17:15 (116) 05/20/19 77 25 85 Room Air 17:00 05/20/19 74 29 176/99 93 Room Air 16:45 (124) 05/20/19 78 28 173/90 90 Room Air 16:30 (117) 05/20/19 76 22 171/108 88 Room Air 16:15 (129) 05/20/19 97.5 80 28 170/97 91 Room Air 16:00 (121) 05/20/19 74 16:00 05/20/19 75 23 172/104 92 Room Air 15:45 (126) 05/20/19 67 20 154/104 95 Room Air 15:30 (121) 05/20/19 75 32 161/91 Room Air 15:15 (114) 05/20/19 68 22 94 Room Air 15:00 05/20/19 71 24 174/80 91 Room Air 14:45 (111) 05/20/19 71 27 177/87 95 Room Air 14:30 (117) 05/20/19 63 25 172/90 93 Room Air 14:15 (117) 05/20/19 67 24 162/86 93 Room Air 14:00 (111) 05/20/19 67 19 156/110 95 Room Air 13:45 (125) 05/20/19 25 155/94 Room Air 13:30 (114) 05/20/19 66 25 157/89 100 Room Air 13:00 (111) 05/20/19 63 20 167/86 99 Room Air 12:45 (113) 05/20/19 66 25 155/98 93 Room Air 12:30 (117) 05/20/19 59 17 146/86 99 Room Air 12:15 (106) 05/20/19 97.6 59 23 134/86 91 Room Air 12:00 (102) 05/20/19 67 12:00 05/20/19 59 12:00 05/20/19 64 35 127/82 95 Room Air 11:45 (97) 05/20/19 60 24 130/82 91 Room Air 11:30 (98) 05/20/19 61 27 157/90 98 Room Air 11:15 (112) 05/20/19 61 17 166/89 96 Room Air 11:00 (114) 05/20/19 55 25 147/80 95 Room Air 10:45 (102) 05/20/19 60 27 143/85 93 Room Air 10:30 (104) 05/20/19 61 19 155/140 97 Room Air 10:15 (145) 05/20/19 59 21 144/80 98 Room Air 10:00 (101) 05/20/19 59 21 158/82 98 Room Air 09:45 (107) 05/20/19 74 29 157/131 95 Room Air 09:30 (140) 05/20/19 70 21 171/69 92 Room Air 09:15 (103) 05/20/19 79 23 126/108 97 Room Air 09:00 (114) 05/20/19 76 29 163/94 95 Room Air 08:45 (117) 05/20/19 77 22 137/84 97 Room Air 08:30 (101) 05/20/19 71 25 152/86 98 Room Air 08:15 (108) 05/20/19 66 08:00 05/20/19 71 08:00 05/20/19 97.8 71 24 145/78 97 Room Air 08:00 (100) 05/20/19 70 34 148/87 95 Room Air 07:45 (107) 05/20/19 70 29 150/72 93 Room Air 07:15 (98) 05/20/19 68 28 164/75 97 Room Air 07:00 (104) 05/20/19 66 21 129/81 95 Room Air 05:30 (97) 05/20/19 68 24 167/88 97 Room Air 05:15 (114) 05/20/19 72 22 148/111 95 Room Air 05:00 (123) 05/20/19 65 22 114/95 96 Room Air 04:45 (101) 05/20/19 68 27 161/91 95 Room Air 04:30 (114) 05/20/19 66 28 151/87 94 Room Air 04:15 (108) 05/20/19 97.8 61 26 153/82 96 Room Air 04:00 (105) 05/20/19 61 04:00 05/20/19 60 21 144/88 96 Room Air 03:45 (106) 05/20/19 63 25 151/88 93 Room Air 03:30 (109) 05/20/19 62 25 165/86 92 Room Air 03:15 (112) 05/20/19 68 24 137/84 94 Room Air 03:00 (101) 05/20/19 67 20 102/38 95 Room Air 02:45 (59) 05/20/19 64 24 140/87 95 Room Air 02:30 (104) 05/20/19 66 21 137/82 97 Room Air 02:15 (100) 05/20/19 66 21 141/75 97 Room Air 02:00 (97) 05/20/19 66 18 135/123 96 Room Air 01:45 (127) 05/20/19 67 23 125/87 93 Room Air 01:30 (100) 05/20/19 67 22 131/79 98 Room Air 01:15 (96) 05/20/19 69 25 140/106 97 Room Air 01:00 (117) 05/20/19 66 26 126/100 98 Room Air 00:45 (109) 05/20/19 71 30 167/89 97 Room Air 00:30 (115) 05/20/19 68 27 150/90 96 Room Air 00:15 (110) 05/20/19 67 00:00 05/20/19 98.1 63 19 139/95 94 Room Air 00:00 (110) 05/19/19 65 22 165/76 99 Room Air 23:45 (105) 05/19/19 60 20 144/83 91 Room Air 23:30 (103) 05/19/19 62 22 90/79 (83) 91 Room Air 23:15 05/19/19 59 23 144/82 89 Room Air 23:00 (102) 05/19/19 63 18 140/76 96 Room Air 22:45 (97) 05/19/19 63 20 164/97 91 Room Air 22:30 (119) 05/19/19 57 23 151/88 96 Room Air 22:00 (109) 05/19/19 59 27 149/91 96 Room Air 21:45 (110) 05/19/19 58 20 151/88 96 Room Air 21:30 (109) 05/19/19 58 23 148/90 90 Room Air 21:15 (109) 05/19/19 59 25 148/90 91 Room Air 21:00 (109) 05/19/19 59 24 143/88 91 Room Air 20:45 (106) 05/19/19 67 26 154/93 92 Room Air 20:30 (113) 05/19/19 71 21 163/78 97 Room Air 20:15 (106) 05/19/19 74 20:00 05/19/19 98.0 74 31 176/107 97 Room Air 20:00 (130) 05/19/19 73 25 175/104 96 Room Air 19:45 (127) 05/19/19 73 30 143/94 95 Room Air 19:30 (110) 05/19/19 73 25 157/87 94 Room Air 19:15 (110) 05/19/19 72 34 160/99 93 Room Air 19:00 (119) 05/19/19 74 23 150/90 96 18:30 (110) 05/19/19 75 25 162/91 96 18:15 (114) 05/19/19 75 20 131/87 96 Room Air 18:00 (102) 05/19/19 74 18 148/92 95 17:45 (110) 05/19/19 72 32 186/88 96 17:30 (120) 05/19/19 71 23 173/85 96 17:15 (114) 05/19/19 71 29 174/83 96 Room Air 17:00 (113) 05/19/19 73 23 161/85 96 16:30 (110) 05/19/19 75 16:00 05/19/19 98.4 75 29 182/94 94 Room Air 16:00 (123) 05/19/19 69 19 140/92 95 15:30 (108) 05/19/19 70 19 175/104 94 Room Air 15:00 (127) 05/19/19 72 33 171/109 97 14:30 (129) 05/19/19 72 25 162/103 97 14:15 (122) 05/19/19 70 30 163/103 97 Room Air 14:00 (123) 05/19/19 73 30 173/106 93 13:45 (128) 05/19/19 73 27 157/103 87 13:30 (121) 05/19/19 76 36 182/93 96 13:15 (122) 05/19/19 78 35 205/105 94 Room Air 13:00 (138) 05/19/19 69 28 190/101 94 12:45 (130) 05/19/19 71 23 185/104 97 12:30 (131) 05/19/19 68 20 195/103 93 12:15 (133) 05/19/19 115 12:00 05/19/19 98.9 67 24 196/119 94 Room Air 12:00 (144) 05/19/19 66 27 146/108 93 11:30 (121) 05/19/19 64 24 163/98 92 Room Air 11:00 (119) 05/19/19 62 30 158/95 92 10:30 (116) 05/19/19 61 29 144/94 95 10:15 (111) 05/19/19 64 24 144/94 94 Room Air 10:00 (111) Vital Signs Date Temp Pulse Resp B/P (MAP) Pulse Ox O2 O2 Flow FiO2 Time Delivery Rate 05/22/19 96 08:01 05/22/19 32 172/89 95 06:15 (116) 05/22/19 Room Air 06:00 05/22/19 98.2 04:00 05/18/19 21 18:45 05/18/19 2.0 16:54 Intake and Output 05/21/19 05/21/19 05/22/19 1515:00 23:00 07:00 IntakeIntake Total 1106.25 ml 965.0 ml 735 ml OutputOutput Total 1655 ml 1555 ml 1280 ml BalanceBalance -548.75 ml -590.0 ml -545 ml Constitutional: alert, obese; No oriented Respiratory: clear to auscultation, normal air movement Cardiovascular: regular rate and rhythm, nl pulses; No edema, No murmurs/extra sounds, No rub Gastrointestinal: soft, nl liver, spleen, non-tender, bowel sounds; No mass, No rebound or guarding Musculoskeletal: nl extremities to inspection Extremities: normal pulses; No cyanosis, No clubbing, No edema Neurological: [employer] II-XII intact, nl speech, nl strength; No nl mental status Additional Comments Bedside Glucose - 72 Hours Test 05/19/19 12:27 05/19/19 17:23 05/19/19 21:18 05/20/19 00:51 Bedside 148 176 146 148 Glucose mg/dL (70-220) mg/dL (70-220) mg/dL (70-220) mg/dL (70-220) Test 05/20/19 05:02 05/20/19 08:39 05/20/19 12:31 05/20/19 17:53 Bedside 157 149 149 137 Glucose mg/dL (70-220) mg/dL (70-220) mg/dL (70-220) mg/dL (70-220) Test 05/20/19 20:37 05/21/19 00:14 05/21/19 05:40 05/21/19 09:40 Bedside 146 154 141 138 Glucose mg/dL (70-220) mg/dL (70-220) mg/dL (70-220) mg/dL (70-220) Test 05/21/19 12:47 05/21/19 17:24 05/21/19 20:58 05/21/19 23:56 Bedside 134 162 158 147 Glucose mg/dL (70-220) mg/dL (70-220) mg/dL (70-220) mg/dL (70-220) Test 05/22/19 05:18 05/22/19 09:28 Bedside 122 106 Glucose mg/dL (70-220) mg/dL (70-220) Results Result Diagram: 05/18/19 0455 05/21/19 0628 Results 24hrs Laboratory Tests Test 05/21/19 12:47 05/21/19 17:24 05/21/19 20:58 05/21/19 23:56 Bedside Glucose 134 162 158 147 Test 05/22/19 05:18 05/22/19 09:28 Bedside Glucose 122 106 Medications Medication Current Medications IV Flush (NS 3 ml) 3 ml PER PROTOCOL IV ; Start 05/09/19 at 00:00 Ondansetron HCl (Zofran Inj) 4 mg Q6H PRN IV NAUSEA/VOMITING; Start 05/09/19 at 00:00 Docusate Sodium (Colace) 100 mg Q12H PRN PO .CONSTIPATION; Start 05/09/19 at 00:00 Magnesium Hydroxide (Milk Of Mag) 30 ml DAILY PRN PO .CONSTIPATION; Start 05/09/19 at 00:00 Nitroglycerin (Nitroglycerin (Sl Tab) 0.4 Mg) 1 tab Q5M PRN SL ANGINA; Start 05/09/19 at 00:00 Insulin Aspart (Novolog Insulin Pen) NOVOLOG *MODERATE* ALGORI... Q4 SC Last administered on 05/22/19at 00:04; Admin Dose 2 UNIT; Start 05/09/19 at 18:00 Miscellaneous Information 1 ea NOTE XX ; Start 05/09/19 at 17:00 Glucose (Glutose) 15 gm Q15M PRN PO DECREASED GLUCOSE; Start 05/09/19 at 17:00 Glucose (Glutose) 22.5 gm Q15M PRN PO DECREASED GLUCOSE; Start 05/09/19 at 17: 00 Dextrose (D50w Syringe) 25 ml Q15M PRN IV DECREASED GLUCOSE; Start 05/09/19 at 17:00 Dextrose (D50w Syringe) 50 ml Q15M PRN IV DECREASED GLUCOSE; Start 05/09/19 at 17:00 Glucagon (Glucagen) 1 mg Q15M PRN IM DECREASED GLUCOSE; Start 05/09/19 at 17:00 Glucose (Glutose) 15 gm Q15M PRN BUCCAL DECREASED GLUCOSE; Start 05/09/19 at 17:00 Atorvastatin Calcium (Lipitor) 80 mg HS NGT Last administered on 05/21/19at 21:09; Admin Dose 80 MG; Start 05/11/19 at 21:00 Insulin Glargine (Lantus) 10 units DAILY@2000 SC Last administered on 05/21/19 21:00; Admin Dose 10 UNITS; Start 05/11/19 at 20:00 IV Flush (NS 10 ml) 10 ml PRN PRN IV IV PROTOCOL; Start 05/13/19 at 14:00 Metoprolol Tartrate (Lopressor) 200 mg BID NGT Last administered on 05/22/19 09:30; Admin Dose 200 MG; Start 05/14/19 at 09:15 Lisinopril (Zestril) 40 mg BID GTB Last administered on 05/22/19 09:32; Admin Dose 40 MG; Start 05/15/19 at 09:00 Aspirin (Aspirin) 81 mg DAILY NGT Last administered on 05/22/19 09:30; Admin Dose 81 MG; Start 05/16/19 at 15:00 Tramadol HCl (Ultram) 50 mg Q6H PRN NGT MODERATE PAIN LEVEL 4-6 Last administered on 05/19/19 16:18; Admin Dose 50 MG; Start 05/18/19 at 11:00 Nicardipine HCl 50 mg/Sodium Chloride 500 ml @ 0 mls/hr TITRATE IV Last administered on 05/22/19 05:54; Admin Dose 105 MLS/HR; Start 05/18/19 at 19:30 Acetaminophen (Tylenol Liquid) 650 mg Q6H PRN NGT .PAIN 1-3 OR TEMP; Start 05/19/19 at 00:00 Famotidine (Pepcid) 20 mg Q12 NGT Last administered on 05/22/19 09:29; Admin Dose 20 MG; Start 05/18/19 at 21:00 Hydralazine HCl (Apresoline) 100 mg Q8 NGT Last administered on 05/22/19 09:31; Admin Dose 100 MG; Start 05/18/19 at 22:00 Nifedipine (Procardia) 10 mg Q6 NGT Last administered on 05/22/19 09:30; Admin Dose 10 MG; Start 05/19/19 at 00:00 Spironolactone (Aldactone) 100 mg BID NGT Last administered on 05/22/19 09:30; Admin Dose 100 MG; Start 05/19/19 at 21:00 Hydralazine HCl (Apresoline) 10 mg Q4H PRN IV ELEVATED BLOOD PRESSURE Last administered on 05/22/19at 05:53; Admin Dose 10 MG; Start 05/19/19 at 20:00 Labetalol HCl (Labetalol) 10 mg Q4H PRN IV sys bp > 160 Last administered on 05/21/19at 03:39; Admin Dose 10 MG; Start 05/19/19 at 17:17 Eye Lubricant (Artificial Tears Oph) 1 drop TID BOTH EYES Last administered on 05/22/19at 09:32; Admin Dose 1 DROP; Start 05/20/19 at 13:00 Lorazepam (Ativan) 1 mg Q8H PRN IV agitation; Start 05/20/19 at 17:00 Doxazosin Mesylate (Cardura) 4 mg BID NGT ; Start 05/22/19 at 21:00 TARYN RAY MD May 22, 2019 10:00
[2019-05-22] MEDS: INSULIN GLARGINE [LANTus] (100 UNITS/ML) SYG SC SCH (21:00)
[2019-05-22] MEDS: DOXAZOSIN 4 MG TAB NGT SCH (21:03)
[2019-05-22] MEDS: ATORVASTATIN 80 MG TAB NGT SCH (21:03)
[2019-05-23] VITALS (47 sets, daily range): BP systolic 103–180; BP diastolic 70–108; PULSE 67–99; RESP 15–33
[2019-05-23] MEDS: NIFEdipine 10 MG CAP NGT SCH ×4 (00:55→17:36)
[2019-05-23] MEDS: INSULIN ASPART [NOVOLOG] 3 ML PEN SC SCH ×6 (00:57→21:00)
[2019-05-23] MEDS: hydrALAzine 20 MG INJ IV PRN (05:46)
[2019-05-23] MEDS: LABETALOL HCL 20MG INJ IV PRN (06:24)
--- NOTE | 2019-05-23 08:08 | PN ---
DATE: 05/23/2019 SUBJECTIVE: The patient remains on Cardene drip. The patient remains hypertensive. No other acute changes noted. OBJECTIVE: VITAL SIGNS: Blood pressure is 161/99, respirations 31, pulse 70, temperature 98.6. HEENT: Head is normocephalic. NECK: Supple. HEART: Regular rate. LUNGS: Show diminished breath sounds at the base. ABDOMEN: Soft, nontender to palpation without rebound or guarding. EXTREMITIES: Negative for clubbing, cyanosis. Trace edema. DERMATOLOGIC: No rashes. MUSCULOSKELETAL: No joint effusion. NEUROLOGIC: No change in exam. MEDICATIONS: Reviewed. LABORATORY DATA: Reviewed. IMAGING STUDIES: Reviewed. ASSESSMENT AND PLAN: 1. Nonoliguric acute kidney injury with previous baseline creatinine of 0.72 mg/dL. Etiology of acu te kidney injury is secondary to nephrotoxicity and hemodynamics. The patient's renal function is cu rrently improved back to baseline. We will continue current treatment plan, supportive care, renally dose all medications. 2. Volume overload. Improved. Continue to give intermittent diuretic therapy as needed. Monitor I 's and O's closely. 3. Hyperkalemia, resolved. 4. Hypomagnesemia, improved. 5. Mineral bone disorder, monitor calcium and phosphorus levels. 6. Acute encephalopathy, etiology is multifactorial secondary to cerebrovascular accident. Continue to monitor. 7. Hypertensive urgency. The patient is being evaluated for possible secondary etiologies of hypert ension. The patient remains on Cardene drip. Continue to wean off as tolerated. Continue current b lood pressure regimen. 8. Respiratory failure, status post extubation. 9. History of cerebrovascular with frontal hematoma. Continue to monitor. 10. Tachyarrhythmia. 11. Systemic inflammatory response syndrome. 12. Hypernatremia, improved. Dictated By: AMELIA MACKAY DO NR/NTS Conf#: [id number] DID#: [id number] CC: DAMIEN CHOUDHARY; FABRICE DLEATORRE MD;*End*
[2019-05-23] MEDS: ARTIFICIAL TEARS 15 ML OPH BOTH EYES SCH ×3 (08:50→21:17)
[2019-05-23] MEDS: DOXAZOSIN 4 MG TAB NGT SCH ×2 (08:53→21:18)
[2019-05-23] MEDS: LISINOPRIL 20 MG TAB GTB SCH ×2 (08:53→21:17)
[2019-05-23] MEDS: ASPIRIN 81 MG TAB NGT SCH (08:53)
[2019-05-23] MEDS: SPIRONOLACTONE 50 MG TAB NGT SCH ×2 (08:53→21:18)
[2019-05-23] MEDS: METOPROLOL 100 MG TAB NGT SCH ×2 (08:54→21:21)
[2019-05-23] MEDS: FAMOTIDINE 20 MG TAB NGT SCH ×2 (08:54→21:18)
--- NOTE | 2019-05-23 09:10 | PN ---
Date/Time of Note Date/Time of Note DATE: 05/23/19 TIME: 09:07 Assessment/Plan VTE Prophylaxis Risk score (from Ns)>0 risk: 9 SCD applied (from Ns): Yes Pharmacological prophylaxis: NA/contraindicated Pharm contraindication: hemorrhagic infarct Lines/[facility] Ur[facility] Cath still in place: Yes Reason Cath still needed: other (indicate) (morbidly obese, immobile) Assessment/Plan Assessment/Plan 39-year-old morbidly obese woman with history of HTN who comes in with decreased p.o. intake, lethargy preceded by delirium and nausea and vomiting. 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 #Encephalopathy-slowly improving as patient answers slightly more questions now in Polish, MRI brain showed several new and old infarcts concerning for central embolic source. There there apparently was small frontal bleed which may be hemorrhagic infarct- TTE done without evidence of vegetations or thrombus - HIV negative - No concern for infectious meningitis based on LP, patient presently off antibiotics. Repeat head CT on May 20 showed some improvement in the frontal bleed. - Neurology Dr. Laurent following, monitor, follow-up their recommendations - Limit sedation as much as possible, continue PT and OT as much as possible #Upper extremity thrombosis - L upper superficial vein thrombosis involving cephalic vein. - Will start anticoagulation if okay per neurology. #GARDENIA - Likely due to iatrogenic vancomycin toxicity-resolved - Dr. Haas following, monitor for now #Respiratory failure- Intubated earlier this admission due to poor mental status, but self extubated on May 15, [address] since that time - Currently protecting airway, monitor # Hypertension: Still on Cardene drip, adjustments made to the dosages and new p.o. regimen added a few days ago. Appreciate endocrinology consult, patient currently being worked up for other possible etiologies of secondary hypertension such as hyperaldosteronism, also considering pheochromocytoma and renal artery stenosis (although these are less likely). - Continue metoprolol (maxed), lisinopril (maxed), hydralazine (maxed), spironolactone, nifedipene (increasing dose) - Follow further recommendations from endocrinology team to further investigate any potential hyperaldosteronism source/etiology of her hype rtension. # DVT prophylaxis: SCDs 45 minutes critical care time spent on this patient today. Result Diagram: 05/23/19 0449 05/23/19 0449 Subjective 24 Hr Interval Summary Free Text/Dictation No acute overnight events. Off nicardipene gtt >48 hours. Exam/Review of Systems Exam Vitals Vital Signs Date Temp Pulse Resp B/P (MAP) Pulse Ox O2 O2 Flow FiO2 Time Delivery Rate 05/23/19 70 31 161/99 99 Room Air 06:00 (119) 05/23/19 97.8 04:00 Intake and Output 05/22/19 05/22/19 05/23/19 1515:00 23:00 07:00 IntakeIntake Total 742.50 ml 350 ml 310 ml OutputOutput Total 1175 ml 1510 ml 1000 ml BalanceBalance -432.50 ml -1160 ml -690 ml Exam Gen: Morbidly obese woman lying supine in bed, sleeping Eyes: Slightly injected conjunctivae. Normal pupils ENT: Normal External Ears, Nose and Mouth. Moist mucous membranes. Neck: No meningismus. No lymphadenopathy. Resp: Clear to auscultation bilaterally. Cardio: Regular rate and rhythm, no murmurs appreciated. Abd: Soft, obese, nondistended, normal bowel sounds Ext: No lower extremity edema bilaterally Results Results 24hrs Laboratory Tests Test 05/22/19 09:28 05/22/19 09:29 05/22/19 12:54 05/22/19 17:15 Bedside Glucose 106 144 131 Troponin I 0.016 Test 05/22/19 20:57 05/23/19 00:54 05/23/19 04:49 05/23/19 04:56 Bedside Glucose 134 141 140 White Blood Count 7.2 Red Blood Count 5.18 Hemoglobin 14.8 Hematocrit 45.7 Mean Corpuscular 88.2 Volume Mean Corpuscular 28.6 L Hemoglobin Mean Corpuscular 32.4 Hemoglobin Concent Red Cell 13.2 Distribution Width Platelet Count 328 Mean Platelet Volume 11.3 H Immature 0.300 Granulocytes % Neutrophils % 65.4 Lymphocytes % 21.3 Monocytes % 9.0 Eosinophils % 3.6 Basophils % 0.4 Nucleated Red Blood 0.0 Cells % Immature 0.020 Granulocytes # Neutrophils # 4.7 Lymphocytes # 1.5 Monocytes # 0.7 Eosinophils # 0.3 Basophils # 0.0 Nucleated Red Blood 0.0 Cells # Sodium Level 142 Potassium Level 4.2 Chloride Level 101 Carbon Dioxide Level 30 Anion Gap 11 Blood Urea Nitrogen 15 Creatinine 0.87 Est Glomerular > 60 Filtrat Rate mL/min Glucose Level 146 Calcium Level 9.8 Phosphorus Level 4.6 Magnesium Level 1.8 Test 05/23/19 08:59 Bedside Glucose 143 Medications Medication Current Medications IV Flush (NS 3 ml) 3 ml PER PROTOCOL IV ; Start 05/09/19 at 00:00 Ondansetron HCl (Zofran Inj) 4 mg Q6H PRN IV NAUSEA/VOMITING; Start 05/09/19 at 00:00 Docusate Sodium (Colace) 100 mg Q12H PRN PO .CONSTIPATION; Start 05/09/19 at 00:00 Magnesium Hydroxide (Milk Of Mag) 30 ml DAILY PRN PO .CONSTIPATION; Start 05/09/19 at 00:00 Nitroglycerin (Nitroglycerin (Sl Tab) 0.4 Mg) 1 tab Q5M PRN SL ANGINA; Start 05/09/19 at 00:00 Insulin Aspart (Novolog Insulin Pen) NOVOLOG *MODERATE* ALGORI... Q4 SC Last administered on 05/23/19at 09:01; Admin Dose 2 UNIT; Start 05/09/19 at 18:00 Miscellaneous Information 1 ea NOTE XX ; Start 05/09/19 at 17:00 Glucose (Glutose) 15 gm Q15M PRN PO DECREASED GLUCOSE; Start 05/09/19 at 17:00 Glucose (Glutose) 22.5 gm Q15M PRN PO DECREASED GLUCOSE; Start 05/09/19 at 17:00 Dextrose (D50w Syringe) 25 ml Q15M PRN IV DECREASED GLUCOSE; Start 05/09/19 at 17:00 Dextrose (D50w Syringe) 50 ml Q15M PRN IV DECREASED GLUCOSE; Start 05/09/19 at 17:00 Glucagon (Glucagen) 1 mg Q15M PRN IM DECREASED GLUCOSE; Start 05/09/19 at 17:00 Glucose (Glutose) 15 gm Q15M PRN BUCCAL DECREASED GLUCOSE; Start 05/09/19 at 17:00 Atorvastatin Calcium (Lipitor) 80 mg HS NGT Last administered on 05/22/19at 21:03; Admin Dose 80 MG; Start 05/11/19 at 21:00 Insulin Glargine (Lantus) 10 units DAILY@2000 SC Last administered on 05/22/19 21:00; Admin Dose 10 UNITS; Start 05/11/19 at 20:00 IV Flush (NS 10 ml) 10 ml PRN PRN IV IV PROTOCOL; Start 05/13/19 at 14:00 Metoprolol Tartrate (Lopressor) 200 mg BID NGT Last administered on 05/23/19 08:54; Admin Dose 200 MG; Start 05/14/19 at 09:15 Lisinopril (Zestril) 40 mg BID GTB Last administered on 05/23/19 08:53; Admin Dose 40 MG; Start 05/15/19 at 09:00 Aspirin (Aspirin) 81 mg DAILY NGT Last administered on 05/23/19 08:53; Admin Dose 81 MG; Start 05/16/19 at 15:00 Tramadol HCl (Ultram) 50 mg Q6H PRN NGT MODERATE PAIN LEVEL 4-6 Last administered on 05/19/19 16:18; Admin Dose 50 MG; Start 05/18/19 at 11:00 Nicardipine HCl 50 mg/Sodium Chloride 500 ml @ 0 mls/hr TITRATE IV Last administered on 05/22/19 10:16; Admin Dose 50 MLS/HR; Start 05/18/19 at 19:30 Acetaminophen (Tylenol Liquid) 650 mg Q6H PRN NGT .PAIN 1-3 OR TEMP; Start 05/19/19 at 00:00 Famotidine (Pepcid) 20 mg Q12 NGT Last administered on 05/23/19 08:54; Admin Dose 20 MG; Start 05/18/19 at 21:00 Hydralazine HCl (Apresoline) 100 mg Q8 NGT Last administered on 05/23/19 05:00; Admin Dose 100 MG; Start 05/18/19 at 22:00 Nifedipine (Procardia) 10 mg Q6 NGT Last administered on 05/23/19 05:00; Admin Dose 10 MG; Start 05/19/19 at 00:00 Spironolactone (Aldactone) 100 mg BID NGT Last administered on 05/23/19 08:53; Admin Dose 100 MG; Start 05/19/19 at 21:00 Hydralazine HCl (Apresoline) 10 mg Q4H PRN IV ELEVATED BLOOD PRESSURE Last administered on 05/23/19 05:46; Admin Dose 10 MG; Start 05/19/19 at 20:00 Labetalol HCl (Labetalol) 10 mg Q4H PRN IV sys bp > 160 Last administered on 05/23/19 06:24; Admin Dose 10 MG; Start 05/19/19 at 17:17 Eye Lubricant (Artificial Tears Oph) 1 drop TID BOTH EYES Last administered on 05/23/19 08:50; Admin Dose 1 DROP; Start 05/20/19 at 13:00 Lorazepam (Ativan) 1 mg Q8H PRN IV agitation; Start 05/20/19 at 17:00 Doxazosin Mesylate (Cardura) 4 mg BID NGT Last administered on 05/23/19 08:53; Admin Dose 4 MG; Start 05/22/19 at 21:00 DAVID QUIÑONEZ MD May 23, 2019 09:10
--- NOTE | 2019-05-23 10:52 | CONS ---
Assessment/Plan Assessment/Plan Assessment/Plan (Recall) 39 F c/ reported Hx of DM2, who presents for evaluation of multiple complaints, including GI Sx...and eventual ams, for which neurology is consulted. 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 The clinical picture was initially concerning for meningoencephalitis..CSF evaluation is inconsistent w/ infection...the erythrocytosis possibly due to a traumatic tap.. Head CT was notable for a left frontal hyperdensity, likely hemorrhagic t ransformation of an above referenced focus of acute ischemia is the context of severe hypertension.. CTA head and neck is negative for multifocal stenoses, which might otherwise suggests vasculitis, etc. TTE is unrevealing EEG was without epileptiform activity Ammonia wnl, HIV/RPR neg, ESR wnl Hypercoagulability panel is in progress, so far negative.. P Hold asa while on therapeutic anticoagulation... Continued BP control to goal normotension PT/OT/ST when able Continue to hold all sedating medications where possible Other management and supportive care per primary Will follow clinically Consultation Date/Type/Reason Admit Date/Time May 08, 2019 at 23:21 Type of Consult Neurology Reason for Consultation ams Requesting Provider: DAMIEN CHOUDHARY Date/Time of Note DATE: 05/23/19 TIME: 10:50 24 HR Interval Summary Free Text/Dictation Continues icu care Exam/Review of Systems Exam Vitals Vital Signs Date Temp Pulse Resp B/P (MAP) Pulse Ox O2 O2 Flow FiO2 Time Delivery Rate 05/23/19 86 08:00 05/23/19 31 161/99 99 Room Air 06:00 (119) 05/23/19 97.8 04:00 Intake and Output 05/22/19 05/22/19 05/23/19 1515:00 23:00 07:00 IntakeIntake Total 742.50 ml 350 ml 310 ml OutputOutput Total 1175 ml 1510 ml 1000 ml BalanceBalance -432.50 ml -1160 ml -690 ml Exam PE: Gen Appearance: No Apparent Distress HEENT: NG tube Cardiovascular: Regular rate Abdomen: Soft Extremities: Dry NE: The patient was lethargic and nonverbal. Cranial nerve examination was limited by mental status. Pupils were equal and reactive to light. There was no afferent pupillary defect. Funduscopic examination was limited. Face was grossly symmetric, w/ present corneal and cough reflexes. Tone was normal. Muscle bulk was normal. I did not see fasciculations. The patient withdrew to noxious stimulation x 4. Coordination and gait testing was limited by mental status. Arm and leg reflexes were symmetric. Skinner's sign was absent. Plantar responses were flexor. Results Result Diagram: 05/23/19 0449 05/23/19 0449 Results 24hrs Laboratory Tests Test 05/22/19 12:54 05/22/19 17:15 05/22/19 20:57 05/23/19 00:54 Bedside Glucose 144 131 134 141 Test 05/23/19 04:49 05/23/19 04:56 05/23/19 08:59 White Blood Count 7.2 Red Blood Count 5.18 Hemoglobin 14.8 Hematocrit 45.7 Mean Corpuscular 88.2 Volume Mean Corpuscular 28.6 L Hemoglobin Mean Corpuscular 32.4 Hemoglobin Concent Red Cell 13.2 Distribution Width Platelet Count 328 Mean Platelet Volume 11.3 H Immature 0.300 Granulocytes % Neutrophils % 65.4 Lymphocytes % 21.3 Monocytes % 9.0 Eosinophils % 3.6 Basophils % 0.4 Nucleated Red Blood 0.0 Cells % Immature 0.020 Granulocytes # Neutrophils # 4.7 Lymphocytes # 1.5 Monocytes # 0.7 Eosinophils # 0.3 Basophils # 0.0 Nucleated Red Blood 0.0 Cells # Sodium Level 142 Potassium Level 4.2 Chloride Level 101 Carbon Dioxide Level 30 Anion Gap 11 Blood Urea Nitrogen 15 Creatinine 0.87 Est Glomerular > 60 Filtrat Rate mL/min Glucose Level 146 Calcium Level 9.8 Phosphorus Level 4.6 Magnesium Level 1.8 Bedside Glucose 140 143 Medications Medication Current Medications IV Flush (NS 3 ml) 3 ml PER PROTOCOL IV ; Start 05/09/19 at 00:00 Ondansetron HCl (Zofran Inj) 4 mg Q6H PRN IV NAUSEA/VOMITING; Start 05/09/19 at 00:00 Docusate Sodium (Colace) 100 mg Q12H PRN PO .CONSTIPATION; Start 05/09/19 at 00:00 Magnesium Hydroxide (Milk Of Mag) 30 ml DAILY PRN PO .CONSTIPATION; Start 05/09/19 at 00:00 Nitroglycerin (Nitroglycerin (Sl Tab) 0.4 Mg) 1 tab Q5M PRN SL ANGINA; Start 05/09/19 at 00:00 Insulin Aspart (Novolog Insulin Pen) NOVOLOG *MODERATE* ALGORI... Q4 SC Last administered on 05/23/19at 09:01; Admin Dose 2 UNIT; Start 05/09/19 at 18:00 Miscellaneous Information 1 ea NOTE XX ; Start 05/09/19 at 17:00 Glucose (Glutose) 15 gm Q15M PRN PO DECREASED GLUCOSE; Start 05/09/19 at 17:00 Glucose (Glutose) 22.5 gm Q15M PRN PO DECREASED GLUCOSE; Start 05/09/19 at 17:00 Dextrose (D50w Syringe) 25 ml Q15M PRN IV DECREASED GLUCOSE; Start 05/09/19 at 17:00 Dextrose (D50w Syringe) 50 ml Q15M PRN IV DECREASED GLUCOSE; Start 05/09/19 at 17:00 Glucagon (Glucagen) 1 mg Q15M PRN IM DECREASED GLUCOSE; Start 05/09/19 at 17:00 Glucose (Glutose) 15 gm Q15M PRN BUCCAL DECREASED GLUCOSE; Start 05/09/19 at 17:00 Atorvastatin Calcium (Lipitor) 80 mg HS NGT Last administered on 05/22/19at 21:03; Admin Dose 80 MG; Start 05/11/19 at 21:00 Insulin Glargine (Lantus) 10 units DAILY@2000 SC Last administered on 05/22/19at 21:00; Admin Dose 10 UNITS; Start 05/11/19 at 20:00 IV Flush (NS 10 ml) 10 ml PRN PRN IV IV PROTOCOL; Start 05/13/19 at 14:00 Metoprolol Tartrate (Lopressor) 200 mg BID NGT Last administered on 05/23/19at 08:54; Admin Dose 200 MG; Start 05/14/19 at 09:15 Lisinopril (Zestril) 40 mg BID GTB Last administered on 05/23/19at 08:53; Admin Dose 40 MG; Start 05/15/19 at 09:00 Aspirin (Aspirin) 81 mg DAILY NGT Last administered on 05/23/19at 08:53; Admin Dose 81 MG; Start 05/16/19 at 15:00 Tramadol HCl (Ultram) 50 mg Q6H PRN NGT MODERATE PAIN LEVEL 4-6 Last administered on 05/19/19 16:18; Admin Dose 50 MG; Start 05/18/19 at 11:00 Nicardipine HCl 50 mg/Sodium Chloride 500 ml @ 0 mls/hr TITRATE IV Last administered on 05/22/19 10:16; Admin Dose 50 MLS/HR; Start 05/18/19 at 19:30 Acetaminophen (Tylenol Liquid) 650 mg Q6H PRN NGT .PAIN 1-3 OR TEMP; Start 05/19/19 at 00:00 Famotidine (Pepcid) 20 mg Q12 NGT Last administered on 05/23/19 08:54; Admin Dose 20 MG; Start 05/18/19 at 21:00 Hydralazine HCl (Apresoline) 100 mg Q8 NGT Last administered on 05/23/19 05:00; Admin Dose 100 MG; Start 05/18/19 at 22:00 Spironolactone (Aldactone) 100 mg BID NGT Last administered on 05/23/19 08:53; Admin Dose 100 MG; Start 05/19/19 at 21:00 Hydralazine HCl (Apresoline) 10 mg Q4H PRN IV ELEVATED BLOOD PRESSURE Last administered on 05/23/19 05:46; Admin Dose 10 MG; Start 05/19/19 at 20:00 Labetalol HCl (Labetalol) 10 mg Q4H PRN IV sys bp > 160 Last administered on 05/23/19 06:24; Admin Dose 10 MG; Start 05/19/19 at 17:17 Eye Lubricant (Artificial Tears Oph) 1 drop TID BOTH EYES Last administered on 05/23/19 08:50; Admin Dose 1 DROP; Start 05/20/19 at 13:00 Lorazepam (Ativan) 1 mg Q8H PRN IV agitation; Start 05/20/19 at 17:00 Doxazosin Mesylate (Cardura) 4 mg BID NGT Last administered on 05/23/19 08:53; Admin Dose 4 MG; Start 05/22/19 at 21:00 Nifedipine (Procardia) 20 mg Q6 NGT ; Start 05/23/19 at 12:00 JOSÉ TORO May 23, 2019 10:52
--- NOTE | 2019-05-23 12:15 | CONS ---
Consult Date/Type/Reason Admit Date/Time May 08, 2019 at 23:21 Initial Consult Date 05/19/19 Type of Consult Pulmonary Requesting Provider: DAMIEN CHOUDHARY Date/Time of Note DATE: 05/23/19 TIME: 12:08 Subjective Patient comfortable following self extubation Objective Vital Signs Date Temp Pulse Resp B/P (MAP) Pulse Ox O2 O2 Flow FiO2 Time Delivery Rate 05/23/19 86 08:00 05/23/19 31 161/99 99 Room Air 06:00 (119) 05/23/19 97.8 04:00 Intake and Output 05/22/19 05/22/19 05/23/19 1515:00 23:00 07:00 IntakeIntake Total 742.50 ml 350 ml 310 ml OutputOutput Total 1175 ml 1510 ml 1000 ml BalanceBalance -432.50 ml -1160 ml -690 ml Exam GENERAL: Well-nourished well-developed lady comfortable at rest VITAL SIGNS: per chart NECK: Supple. No JVD or lymphadenopathy. CARDIAC EXAM: S1, S2. No added sounds or murmurs. CHEST: clear bilaterally, No added sounds, rales or wheezes ABDOMEN: Soft, nontender. No guarding or rebound. EXTREMITIES: No cyanosis, clubbing or edema. NEUROLOGIC: Generalized weakness. No focal deficits. Vent Setting Ventilator Support Mode: AC Fraction of Inspired Oxygen pe: 21 Positive End Expiratory Pressu: 5.0 Results/Medications Result Diagram: 05/23/19 0449 05/23/19 0449 Results 24 hrs Laboratory Tests Test 05/22/19 12:54 05/22/19 17:15 05/22/19 20:57 05/23/19 00:54 Bedside Glucose 144 131 134 141 Test 05/23/19 04:49 05/23/19 04:56 05/23/19 08:59 White Blood Count 7.2 Red Blood Count 5.18 Hemoglobin 14.8 Hematocrit 45.7 Mean Corpuscular 88.2 Volume Mean Corpuscular 28.6 L Hemoglobin Mean Corpuscular 32.4 Hemoglobin Concent Red Cell 13.2 Distribution Width Platelet Count 328 Mean Platelet Volume 11.3 H Immature 0.300 Granulocytes % Neutrophils % 65.4 Lymphocytes % 21.3 Monocytes % 9.0 Eosinophils % 3.6 Basophils % 0.4 Nucleated Red Blood 0.0 Cells % Immature 0.020 Granulocytes # Neutrophils # 4.7 Lymphocytes # 1.5 Monocytes # 0.7 Eosinophils # 0.3 Basophils # 0.0 Nucleated Red Blood 0.0 Cells # Sodium Level 142 Potassium Level 4.2 Chloride Level 101 Carbon Dioxide Level 30 Anion Gap 11 Blood Urea Nitrogen 15 Creatinine 0.87 Est Glomerular > 60 Filtrat Rate mL/min Glucose Level 146 Calcium Level 9.8 Phosphorus Level 4.6 Magnesium Level 1.8 Bedside Glucose 140 143 Medications Current Medications IV Flush (NS 3 ml) 3 ml PER PROTOCOL IV ; Start 05/09/19 at 00:00 Ondansetron HCl (Zofran Inj) 4 mg Q6H PRN IV NAUSEA/VOMITING; Start 05/09/19 at 00:00 Docusate Sodium (Colace) 100 mg Q12H PRN PO .CONSTIPATION; Start 05/09/19 at 00:00 Magnesium Hydroxide (Milk Of Mag) 30 ml DAILY PRN PO .CONSTIPATION; Start 05/09/19 at 00:00 Nitroglycerin (Nitroglycerin (Sl Tab) 0.4 Mg) 1 tab Q5M PRN SL ANGINA; Start 05/09/19 at 00:00 Insulin Aspart (Novolog Insulin Pen) NOVOLOG *MODERATE* ALGORI... Q4 SC Last administered on 05/23/19at 09:01; Admin Dose 2 UNIT; Start 05/09/19 at 18:00 Miscellaneous Information 1 ea NOTE XX ; Start 05/09/19 at 17:00 Glucose (Glutose) 15 gm Q15M PRN PO DECREASED GLUCOSE; Start 05/09/19 at 17:00 Glucose (Glutose) 22.5 gm Q15M PRN PO DECREASED GLUCOSE; Start 05/09/19 at 17:00 Dextrose (D50w Syringe) 25 ml Q15M PRN IV DECREASED GLUCOSE; Start 05/09/19 at 17:00 Dextrose (D50w Syringe) 50 ml Q15M PRN IV DECREASED GLUCOSE; Start 05/09/19 at 17:00 Glucagon (Glucagen) 1 mg Q15M PRN IM DECREASED GLUCOSE; Start 05/09/19 at 17:00 Glucose (Glutose) 15 gm Q15M PRN BUCCAL DECREASED GLUCOSE; Start 05/09/19 at 17:00 Atorvastatin Calcium (Lipitor) 80 mg HS NGT Last administered on 05/22/19 21:03; Admin Dose 80 MG; Start 05/11/19 at 21:00 Insulin Glargine (Lantus) 10 units DAILY@2000 SC Last administered on 05/22/19 21:00; Admin Dose 10 UNITS; Start 05/11/19 at 20:00 IV Flush (NS 10 ml) 10 ml PRN PRN IV IV PROTOCOL; Start 05/13/19 at 14:00 Metoprolol Tartrate (Lopressor) 200 mg BID NGT Last administered on 05/23/19 08:54; Admin Dose 200 MG; Start 05/14/19 at 09:15 Lisinopril (Zestril) 40 mg BID GTB Last administered on 05/23/19 08:53; Admin Dose 40 MG; Start 05/15/19 at 09:00 Aspirin (Aspirin) 81 mg DAILY NGT Last administered on 05/23/19 08:53; Admin Dose 81 MG; Start 05/16/19 at 15:00 Tramadol HCl (Ultram) 50 mg Q6H PRN NGT MODERATE PAIN LEVEL 4-6 Last administered on 05/19/19 16:18; Admin Dose 50 MG; Start 05/18/19 at 11:00 Nicardipine HCl 50 mg/Sodium Chloride 500 ml @ 0 mls/hr TITRATE IV Last administered on 05/22/19 10:16; Admin Dose 50 MLS/HR; Start 05/18/19 at 19:30 Acetaminophen (Tylenol Liquid) 650 mg Q6H PRN NGT .PAIN 1-3 OR TEMP; Start 05/19/19 at 00:00 Famotidine (Pepcid) 20 mg Q12 NGT Last administered on 05/23/19 08:54; Admin Dose 20 MG; Start 05/18/19 at 21:00 Hydralazine HCl (Apresoline) 100 mg Q8 NGT Last administered on 05/23/19 05:00; Admin Dose 100 MG; Start 05/18/19 at 22:00 Spironolactone (Aldactone) 100 mg BID NGT Last administered on 05/23/19 08:53; Admin Dose 100 MG; Start 05/19/19 at 21:00 Hydralazine HCl (Apresoline) 10 mg Q4H PRN IV ELEVATED BLOOD PRESSURE Last administered on 05/23/19at 05:46; Admin Dose 10 MG; Start 05/19/19 at 20:00 Labetalol HCl (Labetalol) 10 mg Q4H PRN IV sys bp > 160 Last administered on 05/23/19at 06:24; Admin Dose 10 MG; Start 05/19/19 at 17:17 Eye Lubricant (Artificial Tears Oph) 1 drop TID BOTH EYES Last administered on 05/23/19at 08:50; Admin Dose 1 DROP; Start 05/20/19 at 13:00 Lorazepam (Ativan) 1 mg Q8H PRN IV agitation; Start 05/20/19 at 17:00 Doxazosin Mesylate (Cardura) 4 mg BID NGT Last administered on 05/23/19at 08:53; Admin Dose 4 MG; Start 05/22/19 at 21:00 Nifedipine (Procardia) 20 mg Q6 NGT ; Start 05/23/19 at 12:00 Assessment/Plan Hospital Course (Demo Recall) Assessment and recommendations; 1. Patient admitted with hypertensive crisis with intracranial bleed with gradual interval neurological improvement. 2. Status post self extubation few days ago with stable pulmonary status. 3. Persistent refractory hypertension, requiring nicardipine drip. Patient on a very aggressive antihypertensive regimen. 4. History of diabetes. 5. Upper extremity deep vein thrombosis 6. Questionable Conns syndrome? Plan 1. Continue aspiration precautions 2. Continue antihypertensives 3. Endocrinology recommendations Critical care time 40 minutes MANUELITO PERSON MD, [facility] May 23, 2019 12:15
--- NOTE | 2019-05-23 19:56 | CONS ---
Assessment/Plan Assessment/Plan Problems: (1) Hypertension Status: Chronic Comment: Pressure is come down with the usage of a combination of medications including alpha blockade. This does not indicate that the patient has pheochromocytoma. Those labs are pending. Because of the spironolactone I am blocked from doing evaluation for primary hyperaldosteronism. Were treating him as if there is hyperaldosteronism. Since he is out of the ICU we can consider getting an MRI scan of the abdomen. Qualifiers: Hypertension type: unspecified Qualified Codes: I10 - Essential (primary) hypertension (2) Diabetes mellitus type 2 in obese Status: Chronic Comment: Adequate glycemic control Consultation Date/Type/Reason Admit Date/Time May 08, 2019 at 23:21 Initial Consult Date 05/19/19 Type of Consult Endocrinology Reason for Consultation Rule out secondary cause of hypertension; Beatties mellitus type II Requesting Provider: DAMIEN CHOUDHARY Date/Time of Note DATE: 05/23/19 TIME: 19:54 24 HR Interval Summary Free Text/Dictation Patient responds in Nepali although not always coherently Exam/Review of Systems Exam Vitals Vital Signs Date Temp Pulse Resp B/P (MAP) Pulse Ox O2 O2 Flow FiO2 Time Delivery Rate 05/23/19 80 23 109/77 95 Room Air 18:30 (88) 05/23/19 98.9 16:00 Intake and Output 05/22/19 05/22/19 05/23/19 1515:00 23:00 07:00 IntakeIntake Total 742.50 ml 350 ml 350 ml OutputOutput Total 1175 ml 1510 ml 1125 ml BalanceBalance -432.50 ml -1160 ml -775 ml Constitutional: alert Respiratory: clear to auscultation, normal air movement Cardiovascular: regular rate and rhythm, nl pulses Results Result Diagram: 05/23/19 0449 05/23/19 0449 Results 24hrs Laboratory Tests Test 05/22/19 20:57 05/23/19 00:54 05/23/19 04:49 05/23/19 04:56 Bedside Glucose 134 141 140 White Blood Count 7.2 Red Blood Count 5.18 Hemoglobin 14.8 Hematocrit 45.7 Mean Corpuscular 88.2 Volume Mean Corpuscular 28.6 L Hemoglobin Mean Corpuscular 32.4 Hemoglobin Concent Red Cell 13.2 Distribution Width Platelet Count 328 Mean Platelet Volume 11.3 H Immature 0.300 Granulocytes % Neutrophils % 65.4 Lymphocytes % 21.3 Monocytes % 9.0 Eosinophils % 3.6 Basophils % 0.4 Nucleated Red Blood 0.0 Cells % Immature 0.020 Granulocytes # Neutrophils # 4.7 Lymphocytes # 1.5 Monocytes # 0.7 Eosinophils # 0.3 Basophils # 0.0 Nucleated Red Blood 0.0 Cells # Sodium Level 142 Potassium Level 4.2 Chloride Level 101 Carbon Dioxide Level 30 Anion Gap 11 Blood Urea Nitrogen 15 Creatinine 0.87 Est Glomerular > 60 Filtrat Rate mL/min Glucose Level 146 Calcium Level 9.8 Phosphorus Level 4.6 Magnesium Level 1.8 Test 05/23/19 08:59 05/23/19 14:19 05/23/19 17:35 Bedside Glucose 143 151 146 Medications Medication Current Medications IV Flush (NS 3 ml) 3 ml PER PROTOCOL IV ; Start 05/09/19 at 00:00 Ondansetron HCl (Zofran Inj) 4 mg Q6H PRN IV NAUSEA/VOMITING; Start 05/09/19 at 00:00 Docusate Sodium (Colace) 100 mg Q12H PRN PO .CONSTIPATION; Start 05/09/19 at 00:00 Magnesium Hydroxide (Milk Of Mag) 30 ml DAILY PRN PO .CONSTIPATION; Start 05/09/19 at 00:00 Nitroglycerin (Nitroglycerin (Sl Tab) 0.4 Mg) 1 tab Q5M PRN SL ANGINA; Start 05/09/19 at 00:00 Insulin Aspart (Novolog Insulin Pen) NOVOLOG *MODERATE* ALGORI... Q4 SC Last administered on 05/23/19at 17:37; Admin Dose 2 UNIT; Start 05/09/19 at 18:00 Miscellaneous Information 1 ea NOTE XX ; Start 05/09/19 at 17:00 Glucose (Glutose) 15 gm Q15M PRN PO DECREASED GLUCOSE; Start 05/09/19 at 17:00 Glucose (Glutose) 22.5 gm Q15M PRN PO DECREASED GLUCOSE; Start 05/09/19 at 17:00 Dextrose (D50w Syringe) 25 ml Q15M PRN IV DECREASED GLUCOSE; Start 05/09/19 at 17:00 Dextrose (D50w Syringe) 50 ml Q15M PRN IV DECREASED GLUCOSE; Start 05/09/19 at 17:00 Glucagon (Glucagen) 1 mg Q15M PRN IM DECREASED GLUCOSE; Start 05/09/19 at 17:00 Glucose (Glutose) 15 gm Q15M PRN BUCCAL DECREASED GLUCOSE; Start 05/09/19 at 17:00 Atorvastatin Calcium (Lipitor) 80 mg HS NGT Last administered on 05/22/19 21:03; Admin Dose 80 MG; Start 05/11/19 at 21:00 Insulin Glargine (Lantus) 10 units DAILY@2000 SC Last administered on 05/22/19 21:00; Admin Dose 10 UNITS; Start 05/11/19 at 20:00 IV Flush (NS 10 ml) 10 ml PRN PRN IV IV PROTOCOL; Start 05/13/19 at 14:00 Metoprolol Tartrate (Lopressor) 200 mg BID NGT Last administered on 05/23/19 08:54; Admin Dose 200 MG; Start 05/14/19 at 09:15 Lisinopril (Zestril) 40 mg BID GTB Last administered on 05/23/19 08:53; Admin Dose 40 MG; Start 05/15/19 at 09:00 Aspirin (Aspirin) 81 mg DAILY NGT Last administered on 05/23/19 08:53; Admin Dose 81 MG; Start 05/16/19 at 15:00 Tramadol HCl (Ultram) 50 mg Q6H PRN NGT MODERATE PAIN LEVEL 4-6 Last administered on 05/19/19 16:18; Admin Dose 50 MG; Start 05/18/19 at 11:00 Acetaminophen (Tylenol Liquid) 650 mg Q6H PRN NGT .PAIN 1-3 OR TEMP; Start 05/19/19 at 00:00 Famotidine (Pepcid) 20 mg Q12 NGT Last administered on 05/23/19 08:54; Admin Dose 20 MG; Start 05/18/19 at 21:00 Hydralazine HCl (Apresoline) 100 mg Q8 NGT Last administered on 05/23/19 14:17; Admin Dose 100 MG; Start 05/18/19 at 22:00 Spironolactone (Aldactone) 100 mg BID NGT Last administered on 05/23/19 08:53; Admin Dose 100 MG; Start 05/19/19 at 21:00 Labetalol HCl (Labetalol) 10 mg Q4H PRN IV sys bp > 160 Last administered on 05/23/19at 06:24; Admin Dose 10 MG; Start 05/19/19 at 17:17 Eye Lubricant (Artificial Tears Oph) 1 drop TID BOTH EYES Last administered on 05/23/19at 14:18; Admin Dose 1 DROP; Start 05/20/19 at 13:00 Lorazepam (Ativan) 1 mg Q8H PRN IV agitation; Start 05/20/19 at 17:00 Doxazosin Mesylate (Cardura) 4 mg BID NGT Last administered on 05/23/19at 08:53; Admin Dose 4 MG; Start 05/22/19 at 21:00 Nifedipine (Procardia) 20 mg Q6 NGT Last administered on 05/23/19at 17:36; Admin Dose 20 MG; Start 05/23/19 at 12:00 VALENTINO MAYER MD May 23, 2019 19:56
[2019-05-23] MEDS: ATORVASTATIN 80 MG TAB NGT SCH (21:18)
[2019-05-23] MEDS: INSULIN GLARGINE [LANTus] (100 UNITS/ML) SYG SC SCH (23:18)
[2019-05-24] VITALS (16 sets, daily range): BP systolic 133–176; BP diastolic 65–89; PULSE 73–101; RESP 18–20
[2019-05-24] MEDS: INSULIN ASPART [NOVOLOG] 3 ML PEN SC SCH ×6 (01:00→20:56)
[2019-05-24] MEDS: NIFEdipine 10 MG CAP NGT SCH ×4 (06:13→17:12)
[2019-05-24] MEDS: FAMOTIDINE 20 MG TAB NGT SCH ×2 (08:39→20:54)
[2019-05-24] MEDS: METOPROLOL 100 MG TAB NGT SCH ×2 (08:39→20:56)
[2019-05-24] MEDS: ASPIRIN 81 MG TAB NGT SCH (08:39)
[2019-05-24] MEDS: ARTIFICIAL TEARS 15 ML OPH BOTH EYES SCH ×3 (08:40→20:57)
[2019-05-24] MEDS: SPIRONOLACTONE 50 MG TAB NGT SCH ×2 (08:40→20:54)
[2019-05-24] MEDS: LISINOPRIL 20 MG TAB GTB SCH ×2 (08:40→20:55)
[2019-05-24] MEDS: DOXAZOSIN 4 MG TAB NGT SCH ×2 (08:40→20:54)
--- NOTE | 2019-05-24 08:41 | PN ---
DATE: 05/24/2019 SUBJECTIVE: The patient's blood pressures are improving. The patient was transferred from intensive care unit to telemetry. No other events noted. OBJECTIVE: VITAL SIGNS: Blood pressure is 155/78, respirations 18, pulse 90, temperature 98.6. HEENT: Head is normocephalic. NECK: Supple. HEART: Regular rate. LUNGS: Show diminished breath sounds at the base. ABDOMEN: Soft, nontender to palpation without rebound or guarding. EXTREMITIES: Negative for clubbing, cyanosis, no edema. DERMATOLOGIC: No rashes. MUSCULOSKELETAL: No joint effusion. NEUROLOGIC: No change in exam. MEDICATIONS: Reviewed. LABORATORY DATA: Reviewed. IMAGES STUDIES: Reviewed ASSESSMENT AND PLAN: 1. Nonoliguric acute kidney injury with previous baseline creatinine of 0.72 mg/dL. Etiology of acu te kidney injury is secondary to nephrotoxicity, hemodynamics. Renal function is currently at baseli ne. Continue to monitor. 2. Volume overload, improved. Continue intermittent diuretic therapy as needed. 3. Hyperkalemia, resolved. 4. Hypomagnesemia, improved. 5. Mineral bone disorder. Monitor calcium and phosphorus levels. 6. Acute encephalopathy secondary to cerebrovascular accident. Continue to monitor. 7. Hypertensive urgency. The patient has been evaluated for secondary workup and etiologies of hype rtension. Currently off Cardene drip. Continue current medical management. 8. Respiratory failure, status post extubation. 9. History of cerebrovascular accident. 10. Tachyarrhythmia. The patient's renal function is stable. We will follow as needed. Dictated By: AMELIA MACKAY DO NR/NTS Conf#: [id number] DID#: [id number] CC: DAMIEN CHOUDHARY; FABRICE DELATORRE MD;*EndCC*
--- NOTE | 2019-05-24 13:41 | CONS ---
Assessment/Plan Assessment/Plan Assessment/Plan (Recall) 39 F c/ reported Hx of DM2, who presents for evaluation of multiple complaints, including GI Sx...and eventual ams, for which neurology is consulted. 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 The clinical picture was initially concerning for meningoencephalitis..CSF evaluation is inconsistent w/ infection...the erythrocytosis possibly due to a traumatic tap.. Head CT was notable for a left frontal hyperdensity, likely hemorrhagic t ransformation of an above referenced focus of acute ischemia is the context of severe hypertension.. CTA head and neck is negative for multifocal stenoses, which might otherwise suggests vasculitis, etc. TTE is unrevealing; SOFIA was deferred.. EEG was without epileptiform activity Ammonia wnl, HIV/RPR neg, ESR wnl Hypercoagulability panel is negative.. P Hold asa while on therapeutic anticoagulation... Continued BP control to goal normotension PT/OT/ST when able Continue to hold all sedating medications where possible Other management and supportive care per primary Will follow clinically Consultation Date/Type/Reason Admit Date/Time May 08, 2019 at 23:21 Type of Consult Neurology Reason for Consultation ams Requesting Provider: DAMIEN CHOUDHARY Date/Time of Note DATE: 05/24/19 TIME: 13:40 24 HR Interval Summary Free Text/Dictation Continues acute care Exam/Review of Systems Exam Vitals Vital Signs Date Temp Pulse Resp B/P (MAP) Pulse Ox O2 O2 Flow FiO2 Time Delivery Rate 05/24/19 84 12:01 05/24/19 98.3 18 156/89 98 12:00 (111) 05/23/19 Room Air 18:30 Intake and Output 05/23/19 05/23/19 05/24/19 1515:00 23:00 07:00 IntakeIntake Total 260 ml 180 ml OutputOutput Total 1115 ml 420 ml BalanceBalance -855 ml -240 ml Results Result Diagram: 05/23/19 0449 05/23/19 0449 Results 24hrs Laboratory Tests Test 05/23/19 14:19 05/23/19 17:35 05/23/19 20:20 05/24/19 06:07 Bedside Glucose 151 146 139 127 Test 05/24/19 07:55 05/24/19 09:22 Bedside Glucose 150 Lab Scanned Report REFERENCE LAB Medications Medication Current Medications IV Flush (NS 3 ml) 3 ml PER PROTOCOL IV ; Start 05/09/19 at 00:00 Ondansetron HCl (Zofran Inj) 4 mg Q6H PRN IV NAUSEA/VOMITING; Start 05/09/19 at 00:00 Docusate Sodium (Colace) 100 mg Q12H PRN PO .CONSTIPATION; Start 05/09/19 at 00:00 Magnesium Hydroxide (Milk Of Mag) 30 ml DAILY PRN PO .CONSTIPATION; Start 05/09/19 at 00:00 Nitroglycerin (Nitroglycerin (Sl Tab) 0.4 Mg) 1 tab Q5M PRN SL ANGINA; Start 05/09/19 at 00:00 Insulin Aspart (Novolog Insulin Pen) NOVOLOG *MODERATE* ALGORI... Q4 SC Last administered on 05/24/19at 07:56; Admin Dose 2 UNIT; Start 05/09/19 at 18:00 Miscellaneous Information 1 ea NOTE XX ; Start 05/09/19 at 17:00 Glucose (Glutose) 15 gm Q15M PRN PO DECREASED GLUCOSE; Start 05/09/19 at 17:00 Glucose (Glutose) 22.5 gm Q15M PRN PO DECREASED GLUCOSE; Start 05/09/19 at 17:00 Dextrose (D50w Syringe) 25 ml Q15M PRN IV DECREASED GLUCOSE; Start 05/09/19 at 17:00 Dextrose (D50w Syringe) 50 ml Q15M PRN IV DECREASED GLUCOSE; Start 05/09/19 at 17:00 Glucagon (Glucagen) 1 mg Q15M PRN IM DECREASED GLUCOSE; Start 05/09/19 at 17:00 Glucose (Glutose) 15 gm Q15M PRN BUCCAL DECREASED GLUCOSE; Start 05/09/19 at 1 7:00 Atorvastatin Calcium (Lipitor) 80 mg HS NGT Last administered on 05/23/19at 21:18; Admin Dose 80 MG; Start 05/11/19 at 21:00 Insulin Glargine (Lantus) 10 units DAILY@2000 SC Last administered on 05/23/19at 23:18; Admin Dose 10 UNITS; Start 05/11/19 at 20:00 IV Flush (NS 10 ml) 10 ml PRN PRN IV IV PROTOCOL; Start 05/13/19 at 14:00 Metoprolol Tartrate (Lopressor) 200 mg BID NGT Last administered on 05/24/19 08:39; Admin Dose 200 MG; Start 05/14/19 at 09:15 Lisinopril (Zestril) 40 mg BID GTB Last administered on 05/24/19 08:40; Admin Dose 40 MG; Start 05/15/19 at 09:00 Aspirin (Aspirin) 81 mg DAILY NGT Last administered on 05/24/19 08:39; Admin Dose 81 MG; Start 05/16/19 at 15:00 Tramadol HCl (Ultram) 50 mg Q6H PRN NGT MODERATE PAIN LEVEL 4-6 Last administered on 05/19/19 16:18; Admin Dose 50 MG; Start 05/18/19 at 11:00 Acetaminophen (Tylenol Liquid) 650 mg Q6H PRN NGT .PAIN 1-3 OR TEMP; Start 05/19/19 at 00:00 Famotidine (Pepcid) 20 mg Q12 NGT Last administered on 05/24/19 08:39; Admin Dose 20 MG; Start 05/18/19 at 21:00 Hydralazine HCl (Apresoline) 100 mg Q8 NGT Last administered on 05/24/19 06:15; Admin Dose 100 MG; Start 05/18/19 at 22:00 Spironolactone (Aldactone) 100 mg BID NGT Last administered on 05/24/19 08:40; Admin Dose 100 MG; Start 05/19/19 at 21:00 Labetalol HCl (Labetalol) 10 mg Q4H PRN IV sys bp > 160 Last administered on 05/23/19 06:24; Admin Dose 10 MG; Start 05/19/19 at 17:17 Eye Lubricant (Artificial Tears Oph) 1 drop TID BOTH EYES Last administered on 05/24/19 08:40; Admin Dose 1 DROP; Start 05/20/19 at 13:00 Lorazepam (Ativan) 1 mg Q8H PRN IV agitation; Start 05/20/19 at 17:00 Doxazosin Mesylate (Cardura) 4 mg BID NGT Last administered on 05/24/19 08:40; Admin Dose 4 MG; Start 05/22/19 at 21:00 Nifedipine (Procardia) 20 mg Q6 NGT Last administered on 05/24/19at 06:14; Admin Dose 20 MG; Start 05/23/19 at 12:00 JOSÉ TORO May 24, 2019 13:41
--- NOTE | 2019-05-24 15:33 | CONS ---
Consult Date/Type/Reason Admit Date/Time May 08, 2019 at 23:21 Initial Consult Date 05/19/19 Type of Consult Pulmonary Requesting Provider: DAMIEN CHOUDHARY Date/Time of Note DATE: 05/24/19 TIME: 15:31 Subjective Patient appears comfortable today. Blood pressure improved no respiratory distress. Objective Vital Signs Date Temp Pulse Resp B/P (MAP) Pulse Ox O2 O2 Flow FiO2 Time Delivery Rate 05/24/19 84 12:01 05/24/19 98.3 18 156/89 98 12:00 (111) 05/23/19 Room Air 18:30 Intake and Output 05/23/19 05/23/19 05/24/19 1515:00 23:00 07:00 IntakeIntake Total 260 ml 180 ml OutputOutput Total 1115 ml 420 ml BalanceBalance -855 ml -240 ml Exam GENERAL: Well-nourished well-developed lady comfortable at rest VITAL SIGNS: per chart NECK: Supple. No JVD or lymphadenopathy. CARDIAC EXAM: S1, S2. No added sounds or murmurs. CHEST: clear bilaterally, No added sounds, rales or wheezes ABDOMEN: Soft, nontender. No guarding or rebound. EXTREMITIES: No cyanosis, clubbing or edema. NEUROLOGIC: Generalized weakness. No focal deficits. Vent Setting Ventilator Support Mode: AC Fraction of Inspired Oxygen pe: 21 Positive End Expiratory Pressu: 5.0 Results/Medications Result Diagram: 05/23/19 0449 05/23/19 0449 Results 24 hrs Laboratory Tests Test 05/23/19 17:35 05/23/19 20:20 05/24/19 06:07 05/24/19 07:55 Bedside Glucose 146 139 127 150 Test 05/24/19 09:22 05/24/19 13:43 Lab Scanned Report REFERENCE LAB Bedside Glucose 122 Medications Current Medications IV Flush (NS 3 ml) 3 ml PER PROTOCOL IV ; Start 05/09/19 at 00:00 Ondansetron HCl (Zofran Inj) 4 mg Q6H PRN IV NAUSEA/VOMITING; Start 05/09/19 at 00:00 Docusate Sodium (Colace) 100 mg Q12H PRN PO .CONSTIPATION; Start 05/09/19 at 00:00 Magnesium Hydroxide (Milk Of Mag) 30 ml DAILY PRN PO .CONSTIPATION; Start 05/09/19 at 00:00 Nitroglycerin (Nitroglycerin (Sl Tab) 0.4 Mg) 1 tab Q5M PRN SL ANGINA; Start 05/09/19 at 00:00 Insulin Aspart (Novolog Insulin Pen) NOVOLOG *MODERATE* ALGORI... Q4 SC Last administered on 05/24/19at 07:56; Admin Dose 2 UNIT; Start 05/09/19 at 18:00 Miscellaneous Information 1 ea NOTE XX ; Start 05/09/19 at 17:00 Glucose (Glutose) 15 gm Q15M PRN PO DECREASED GLUCOSE; Start 05/09/19 at 17:00 Glucose (Glutose) 22.5 gm Q15M PRN PO DECREASED GLUCOSE; Start 05/09/19 at 17:00 Dextrose (D50w Syringe) 25 ml Q15M PRN IV DECREASED GLUCOSE; Start 05/09/19 at 17:00 Dextrose (D50w Syringe) 50 ml Q15M PRN IV DECREASED GLUCOSE; Start 05/09/19 at 17:00 Glucagon (Glucagen) 1 mg Q15M PRN IM DECREASED GLUCOSE; Start 05/09/19 at 17:00 Glucose (Glutose) 15 gm Q15M PRN BUCCAL DECREASED GLUCOSE; Start 05/09/19 at 17:00 Atorvastatin Calcium (Lipitor) 80 mg HS NGT Last administered on 05/23/19at 21:18; Admin Dose 80 MG; Start 05/11/19 at 21:00 Insulin Glargine (Lantus) 10 units DAILY@2000 SC Last administered on 05/23/19at 23:18; Admin Dose 10 UNITS; Start 05/11/19 at 20:00 IV Flush (NS 10 ml) 10 ml PRN PRN IV IV PROTOCOL; Start 05/13/19 at 14:00 Metoprolol Tartrate (Lopressor) 200 mg BID NGT Last administered on 05/24/19at 08:39; Admin Dose 200 MG; Start 05/14/19 at 09:15 Lisinopril (Zestril) 40 mg BID GTB Last administered on 05/24/19at 08:40; Admin Dose 40 MG; Start 05/15/19 at 09:00 Aspirin (Aspirin) 81 mg DAILY NGT Last administered on 05/24/19at 08:39; Admin Dose 81 MG; Start 05/16/19 at 15:00 Tramadol HCl (Ultram) 50 mg Q6H PRN NGT MODERATE PAIN LEVEL 4-6 Last administered on 05/19/19 16:18; Admin Dose 50 MG; Start 05/18/19 at 11:00 Acetaminophen (Tylenol Liquid) 650 mg Q6H PRN NGT .PAIN 1-3 OR TEMP; Start 05/19/19 at 00:00 Famotidine (Pepcid) 20 mg Q12 NGT Last administered on 05/24/19 08:39; Admin Dose 20 MG; Start 05/18/19 at 21:00 Hydralazine HCl (Apresoline) 100 mg Q8 NGT Last administered on 05/24/19 13: 44; Admin Dose 100 MG; Start 05/18/19 at 22:00 Spironolactone (Aldactone) 100 mg BID NGT Last administered on 05/24/19 08:40; Admin Dose 100 MG; Start 05/19/19 at 21:00 Labetalol HCl (Labetalol) 10 mg Q4H PRN IV sys bp > 160 Last administered on 05/23/19 06:24; Admin Dose 10 MG; Start 05/19/19 at 17:17 Eye Lubricant (Artificial Tears Oph) 1 drop TID BOTH EYES Last administered on 05/24/19 13:44; Admin Dose 1 DROP; Start 05/20/19 at 13:00 Lorazepam (Ativan) 1 mg Q8H PRN IV agitation; Start 05/20/19 at 17:00 Doxazosin Mesylate (Cardura) 4 mg BID NGT Last administered on 05/24/19 08:40; Admin Dose 4 MG; Start 05/22/19 at 21:00 Nifedipine (Procardia) 20 mg Q6 NGT Last administered on 05/24/19 13:43; Admin Dose 20 MG; Start 05/23/19 at 12:00 Assessment/Plan Hospital Course (Demo Recall) Assessment 1. Patient admitted with hypertensive crisis with intracranial bleed with gradual interval neurological improvement. 2. Status post self extubation few days ago with stable pulmonary status. 3. Persistent refractory hypertension, requiring nicardipine drip. Patient on a very aggressive antihypertensive regimen. 4. History of diabetes. 5. Upper extremity deep vein thrombosis Plan 1. Continue aspiration precautions 2. Continue antihypertensives 3. Endocrinology recommendations 4. Physical therapy encourage out of bed MANUELITO PERSON MD[facility] May 24, 2019 15:33
--- NOTE | 2019-05-24 16:45 | PN ---
Date/Time of Note Date/Time of Note DATE: 05/24/19 TIME: 16:43 Assessment/Plan VTE Prophylaxis Risk score (from Nsg)>0 risk: 6 SCD applied (from Nsg): Yes Pharmacological prophylaxis: LMWH Lines/Catheters IV Catheter Type (from Nrsg): Mid Line Urinary Cath still in place: Yes Reason Cath still needed: other (indicate) (morbidly obese, immobile) Assessment/Plan Assessment/Plan 39-year-old morbidly obese woman with history of HTN who comes in with decreased p.o. intake, lethargy preceded by delirium and nausea and vomiting. 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 #Encephalopathy-slowly improving as patient answers slightly more questions now in [place], MRI brain showed several new and old infarcts concerning for central embolic source. There there apparently was small frontal bleed which may be hemorrhagic infarct- TTE done without evidence of vegetations or thrombus - HIV negative - No concern for infectious meningitis based on LP, patient presently off antibiotics. Repeat head CT on May 20 showed some improvement in the frontal bleed. - Neurology Dr. Laurent following, monitor, follow-up their recommendations - Limit sedation as much as possible, continue PT and OT as much as possible #Upper extremity thrombosis - L upper superficial vein thrombosis involving cephalic vein. - Will start therapeutic lovenox. Discontinue aspirin. #GARDENIA - Likely due to iatrogenic vancomycin toxicity-resolved #Respiratory failure- Intubated earlier this admission due to poor mental status, but self extubated on May 15, 2019. - Currently protecting airway # Hypertension: Still on Cardene drip, adjustments made to the dosages and new p.o. regimen added a few days ago. Appreciate endocrinology consult, patient currently being worked up for other possible etiologies of secondary hypertension such as hyperaldosteronism, also considering pheochromocytoma and renal artery stenosis (although these are less likely). - Continue metoprolol (maxed), lisinopril (maxed), hydralazine (maxed), spironolactone, nifedipene (increasing dose) - Follow further recommendations from endocrinology team to further investigate any potential hyperaldosteronism source/etiology of her hypertension. # DVT prophylaxis: SCDs Result Diagram: 05/23/199 05/23/199 Subjective 24 Hr Interval Summary Free Text/Dictation No acute overnight events. Patient more awake and alert today. Exam/Review of Systems Exam Vitals Vital Signs Date Temp Pulse Resp B/P (MAP) Pulse Ox O2 O2 Flow FiO2 Time Delivery Rate 05/24/19 73 16:01 05/24/19 98.0 18 166/87 98 15:57 (113) 05/23/19 Room Air 18:30 Intake and Output 05/23/19 05/23/19 05/24/19 1515:00 23:00 07:00 IntakeIntake Total 260 ml 180 ml OutputOutput Total 1115 ml 420 ml BalanceBalance -855 ml -240 ml Exam Gen: Morbidly obese woman lying supine in bed, awake and alert. Eyes: Slightly injected conjunctivae. Normal pupils ENT: Normal External Ears, Nose and Mouth. Moist mucous membranes. Neck: No meningismus. No lymphadenopathy. Resp: Clear to auscultation bilaterally. Cardio: Regular rate and rhythm, no murmurs appreciated. Abd: Soft, obese, nondistended, normal bowel sounds Ext: No lower extremity edema bilaterally Neuro: Oriented to name but not location, year, month, day. Results Results 24hrs Laboratory Tests Test 05/23/19 17:35 05/23/19 20:20 05/24/19 06:07 05/24/19 07:55 Bedside Glucose 146 139 127 150 Test 05/24/19 09:22 05/24/19 13:43 Lab Scanned Report REFERENCE LAB Bedside Glucose 122 Medications Medication Current Medications IV Flush (NS 3 ml) 3 ml PER PROTOCOL IV ; Start 05/09/19 at 00:00 Ondansetron HCl (Zofran Inj) 4 mg Q6H PRN IV NAUSEA/VOMITING; Start 05/09/19 at 00:00 Docusate Sodium (Colace) 100 mg Q12H PRN PO .CONSTIPATION; Start 05/09/19 at 00:00 Magnesium Hydroxide (Milk Of Mag) 30 ml DAILY PRN PO .CONSTIPATION; Start 05/09/19 at 00:00 Nitroglycerin (Nitroglycerin (Sl Tab) 0.4 Mg) 1 tab Q5M PRN SL ANGINA; Start 05/09/19 at 00:00 Insulin Aspart (Novolog Insulin Pen) NOVOLOG *MODERATE* ALGORI... Q4 SC Last administered on 05/24/19at 07:56; Admin Dose 2 UNIT; Start 05/09/19 at 18:00 Miscellaneous Information 1 ea NOTE XX ; Start 05/09/19 at 17:00 Glucose (Glutose) 15 gm Q15M PRN PO DECREASED GLUCOSE; Start 05/09/19 at 17:00 Glucose (Glutose) 22.5 gm Q15M PRN PO DECREASED GLUCOSE; Start 05/09/19 at 17:00 Dextrose (D50w Syringe) 25 ml Q15M PRN IV DECREASED GLUCOSE; Start 05/09/19 at 17:00 Dextrose (D50w Syringe) 50 ml Q15M PRN IV DECREASED GLUCOSE; Start 05/09/19 at 17:00 Glucagon (Glucagen) 1 mg Q15M PRN IM DECREASED GLUCOSE; Start 05/09/19 at 17:00 Glucose (Glutose) 15 gm Q15M PRN BUCCAL DECREASED GLUCOSE; Start 05/09/19 at 17:00 Atorvastatin Calcium (Lipitor) 80 mg HS NGT Last administered on 05/23/19at 21:18; Admin Dose 80 MG; Start 05/11/19 at 21:00 Insulin Glargine (Lantus) 10 units DAILY@2000 SC Last administered on 05/23/19at 23:18; Admin Dose 10 UNITS; Start 05/11/19 at 20:00 IV Flush (NS 10 ml) 10 ml PRN PRN IV IV PROTOCOL; Start 05/13/19 at 14:00 Metoprolol Tartrate (Lopressor) 200 mg BID NGT Last administered on 05/24/19at 08:39; Admin Dose 200 MG; Start 05/14/19 at 09:15 Lisinopril (Zestril) 40 mg BID GTB Last administered on 05/24/19at 08:40; Admin Dose 40 MG; Start 05/15/19 at 09:00 Aspirin (Aspirin) 81 mg DAILY NGT Last administered on 05/24/19at 08:39; Admin Dose 81 MG; Start 05/16/19 at 15:00 Tramadol HCl (Ultram) 50 mg Q6H PRN NGT MODERATE PAIN LEVEL 4-6 Last administered on 05/19/19at 16:18; Admin Dose 50 MG; Start 05/18/19 at 11:00 Acetaminophen (Tylenol Liquid) 650 mg Q6H PRN NGT .PAIN 1-3 OR TEMP; Start 05/19/19 at 00:00 Famotidine (Pepcid) 20 mg Q12 NGT Last administered on 05/24/19 08:39; Admin Dose 20 MG; Start 05/18/19 at 21:00 Hydralazine HCl (Apresoline) 100 mg Q8 NGT Last administered on 05/24/19 13:44; Admin Dose 100 MG; Start 05/18/19 at 22:00 Spironolactone (Aldactone) 100 mg BID NGT Last administered on 05/24/19 08:40; Admin Dose 100 MG; Start 05/19/19 at 21:00 Labetalol HCl (Labetalol) 10 mg Q4H PRN IV sys bp > 160 Last administered on 05/23/19 06:24; Admin Dose 10 MG; Start 05/19/19 at 17:17 Eye Lubricant (Artificial Tears Oph) 1 drop TID BOTH EYES Last administered on 05/24/19 13:44; Admin Dose 1 DROP; Start 05/20/19 at 13:00 Lorazepam (Ativan) 1 mg Q8H PRN IV agitation; Start 05/20/19 at 17:00 Doxazosin Mesylate (Cardura) 4 mg BID NGT Last administered on 05/24/19 08:40; Admin Dose 4 MG; Start 05/22/19 at 21:00 Nifedipine (Procardia) 20 mg Q6 NGT Last administered on 05/24/19 13:43; Admin Dose 20 MG; Start 05/23/19 at 12:00 DAVID QUIÑONEZ MD May 24, 2019 16:45
--- NOTE | 2019-05-24 18:25 | CONS ---
Assessment/Plan Assessment/Plan Problems: (1) Diabetes mellitus type 2 in obese Status: Chronic Comment: Blood sugar control at this time in a controlled environment with controlled dietary input is doing well. Overall status it may be an appropriate consideration for placement of a PEG tube. To that I would actually like to have some type of imaging of the abdomen. I attempted to order an MRI scan whic h was canceled by radiology stating the patient was intubated and sedated. Please note the patient's dosing schedule for sedating medications, and her ventilator status at this time. (2) Deep venous thrombosis of left upper extremity Status: Acute Comment: On Lovenox. Qualifiers: Chronicity: acute (3) Hemorrhagic cerebrovascular accident (CVA) Onset Date: ~ 05/08/2019 Status: Acute Comment: Please see neurology recommendations. Antithrombin III level is slightly elevated however the other labs are not revealing (4) Hypertension Status: Chronic Comment: Blood pressure control is better but certainly not ideal. I have values the idea of pursuing an evaluation for renal artery stenosis. Would like input from nephrology and the primary team about how they would like to pursue that given at my request for MRI scan was canceled by radiology Qualifiers: Hypertension type: unspecified Qualified Codes: I10 - Essential (primary) hypertension (5) Grade II diastolic dysfunction Status: Chronic Comment: Rate control and blood pressure control (6) Hyperlipidemia Status: Chronic Comment: On full dose statin therapy Qualifiers: Hyperlipidemia type: pure hypercholesterolemia Qualified Codes: E78.00 - Pure hypercholesterolemia, unspecified (7) Hypokalemia Status: Chronic Comment: Resolved. Please note this patient is on full dose diuretic therapy with spironolactone Consultation Date/Type/Reason Admit Date/Time May 08, 2019 at 23:21 Initial Consult Date 05/19/19 Type of Consult Endocrinology Reason for Consultation Accelerated hypertension, rule out endocrine disorder; diabetes mellitus type 2; status post multiple cerebral small infarcts with decreased mental status Requesting Provider: DAMIEN CHOUDHARY Date/Time of Note DATE: 05/24/19 TIME: 18:21 24 HR Interval Summary Free Text/Dictation Patient is in bed with an NG tube. She does not respond to direct questions but she does grunt and snore and move around a little bit Subjective hx not possible: pt non-verbal Detailed Summary Cardiovascular: no complaints Gastrointestinal: no complaints Genitourinary: no complaints Exam/Review of Systems Exam Vitals Vital Signs Date Temp Pulse Resp B/P (MAP) Pulse Ox O2 O2 Flow FiO2 Time Delivery Rate 05/24/19 73 16:01 05/24/19 98.0 18 166/87 98 15:57 (113) 05/23/19 Room Air 18:30 Intake and Output 05/23/19 05/23/19 05/24/19 1515:00 23:00 07:00 IntakeIntake Total 260 ml 180 ml OutputOutput Total 1115 ml 420 ml BalanceBalance -855 ml -240 ml Constitutional: non-verbal ENMT: other (NG tube in place. Please note this patient is not intubated or on a ventilator. (Please see the note for the cancellation of the MRI scan)) Respiratory: clear to auscultation, normal air movement Cardiovascular: regular rate and rhythm, nl pulses Gastrointestinal: soft, nl liver, spleen, non-tender Results Result Diagram: 05/23/19 0449 05/23/19 0449 Results 24hrs Laboratory Tests Test 05/23/19 20:20 05/24/19 06:07 05/24/19 07:55 05/24/19 09:22 Bedside Glucose 139 127 150 Lab Scanned Report REFERENCE LAB Test 05/24/19 13:43 05/24/19 17:11 Bedside Glucose 122 125 Medications Medication Current Medications IV Flush (NS 3 ml) 3 ml PER PROTOCOL IV ; Start 05/09/19 at 00:00 Ondansetron HCl (Zofran Inj) 4 mg Q6H PRN IV NAUSEA/VOMITING; Start 05/09/19 at 00:00 Docusate Sodium (Colace) 100 mg Q12H PRN PO .CONSTIPATION; Start 05/09/19 at 00:00 Magnesium Hydroxide (Milk Of Mag) 30 ml DAILY PRN PO .CONSTIPATION; Start 05/09/19 at 00:00 Nitroglycerin (Nitroglycerin (Sl Tab) 0.4 Mg) 1 tab Q5M PRN SL ANGINA; Start 05/09/19 at 00:00 Insulin Aspart (Novolog Insulin Pen) NOVOLOG *MODERATE* ALGORI... Q4 SC Last administered on 05/24/19at 07:56; Admin Dose 2 UNIT; Start 05/09/19 at 18:00 Miscellaneous Information 1 ea NOTE XX ; Start 05/09/19 at 17:00 Glucose (Glutose) 15 gm Q15M PRN PO DECREASED GLUCOSE; Start 05/09/19 at 17:00 Glucose (Glutose) 22.5 gm Q15M PRN PO DECREASED GLUCOSE; Start 05/09/19 at 17:00 Dextrose (D50w Syringe) 25 ml Q15M PRN IV DECREASED GLUCOSE; Start 05/09/19 at 17:00 Dextrose (D50w Syringe) 50 ml Q15M PRN IV DECREASED GLUCOSE; Start 05/09/19 at 17:00 Glucagon (Glucagen) 1 mg Q15M PRN IM DECREASED GLUCOSE; Start 05/09/19 at 17:00 Glucose (Glutose) 15 gm Q15M PRN BUCCAL DECREASED GLUCOSE; Start 05/09/19 at 17:00 Atorvastatin Calcium (Lipitor) 80 mg HS NGT Last administered on 05/23/19at 21:18; Admin Dose 80 MG; Start 05/11/19 at 21:00 Insulin Glargine (Lantus) 10 units DAILY@2000 SC Last administered on 05/23/19at 23:18; Admin Dose 10 UNITS; Start 05/11/19 at 20:00 IV Flush (NS 10 ml) 10 ml PRN PRN IV IV PROTOCOL; Start 05/13/19 at 14:00 Metoprolol Tartrate (Lopressor) 200 mg BID NGT Last administered on 05/24/19at 08:39; Admin Dose 200 MG; Start 05/14/19 at 09:15 Lisinopril (Zestril) 40 mg BID GTB Last administered on 05/24/19at 08:40; Admin Dose 40 MG; Start 05/15/19 at 09:00 Tramadol HCl (Ultram) 50 mg Q6H PRN NGT MODERATE PAIN LEVEL 4-6 Last administered on 05/19/19at 16:18; Admin Dose 50 MG; Start 05/18/19 at 11:00 Acetaminophen (Tylenol Liquid) 650 mg Q6H PRN NGT .PAIN 1-3 OR TEMP; Start 05/19/19 at 00:00 Famotidine (Pepcid) 20 mg Q12 NGT Last administered on 05/24/19at 08:39; Admin Dose 20 MG; Start 05/18/19 at 21:00 Hydralazine HCl (Apresoline) 100 mg Q8 NGT Last administered on 05/24/19 13:44; Admin Dose 100 MG; Start 05/18/19 at 22:00 Spironolactone (Aldactone) 100 mg BID NGT Last administered on 05/24/19 08:40; Admin Dose 100 MG; Start 05/19/19 at 21:00 Labetalol HCl (Labetalol) 10 mg Q4H PRN IV sys bp > 160 Last administered on 05/23/19 06:24; Admin Dose 10 MG; Start 05/19/19 at 17:17 Eye Lubricant (Artificial Tears Oph) 1 drop TID BOTH EYES Last administered on 05/24/19 13:44; Admin Dose 1 DROP; Start 05/20/19 at 13:00 Lorazepam (Ativan) 1 mg Q8H PRN IV agitation; Start 05/20/19 at 17:00 Doxazosin Mesylate (Cardura) 4 mg BID NGT Last administered on 05/24/19 08:40; Admin Dose 4 MG; Start 05/22/19 at 21:00 Nifedipine (Procardia) 20 mg Q6 NGT Last administered on 05/24/19 17:12; Admin Dose 20 MG; Start 05/23/19 at 12:00 Enoxaparin Sodium (Lovenox) 125 mg Q12 SC ; Start 05/24/19 at 21:00 VALENTINO MAYER MD May 24, 2019 18:25
[2019-05-24] MEDS: INSULIN GLARGINE [LANTus] (100 UNITS/ML) SYG SC SCH (20:45)
[2019-05-24] MEDS: ENOXAPARIN 100 MG/ML SYG SC SCH (20:49)
[2019-05-24] MEDS: ATORVASTATIN 80 MG TAB NGT SCH (20:54)
[2019-05-25] VITALS (16 sets, daily range): BP systolic 132–187; BP diastolic 74–113; PULSE 78–100; RESP 16–22
[2019-05-25] MEDS: NIFEdipine 10 MG CAP NGT SCH ×4 (00:58→17:12)
[2019-05-25] MEDS: INSULIN ASPART [NOVOLOG] 3 ML PEN SC SCH ×6 (02:36→21:17)
[2019-05-25] MEDS: SPIRONOLACTONE 50 MG TAB NGT SCH ×2 (08:34→21:35)
[2019-05-25] MEDS: DOXAZOSIN 4 MG TAB NGT SCH ×2 (08:34→21:37)
[2019-05-25] MEDS: FAMOTIDINE 20 MG TAB NGT SCH ×2 (08:34→21:38)
[2019-05-25] MEDS: ARTIFICIAL TEARS 15 ML OPH BOTH EYES SCH ×3 (08:35→21:19)
[2019-05-25] MEDS: METOPROLOL 100 MG TAB NGT SCH ×2 (08:35→21:36)
[2019-05-25] MEDS: LISINOPRIL 20 MG TAB GTB SCH ×2 (08:35→21:37)
[2019-05-25] MEDS: ENOXAPARIN 100 MG/ML SYG SC SCH ×2 (09:00→22:02)
--- NOTE | 2019-05-25 13:20 | CONS ---
Assessment/Plan Assessment/Plan Assessment/Plan (Recall) 39 F c/ reported Hx of DM2, who presents for evaluation of multiple complaints, including GI Sx...and eventual ams, for which neurology is consulted. 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 The clinical picture was initially concerning for meningoencephalitis..CSF evaluation is inconsistent w/ infection...the erythrocytosis possibly due to a traumatic tap.. Head CT was notable for a left frontal hyperdensity, likely hemorrhagic t ransformation of an above referenced focus of acute ischemia is the context of severe hypertension.. CTA head and neck is negative for multifocal stenoses, which might otherwise suggests vasculitis, etc. TTE is unrevealing; SOFIA was deferred.. EEG was without epileptiform activity Ammonia wnl, HIV/RPR neg, ESR wnl Hypercoagulability panel is negative.. P Hold asa while on therapeutic anticoagulation... Continued BP control to goal normotension PT/OT/ST as able Continue to hold all sedating medications where possible Other management and supportive care per primary Will follow clinically Consultation Date/Type/Reason Admit Date/Time May 08, 2019 at 23:21 Type of Consult Neurology Reason for Consultation ams Requesting Provider: DAMIEN CHOUDHARY Date/Time of Note DATE: 05/25/19 TIME: 13:19 24 HR Interval Summary Free Text/Dictation Continues acute care Exam/Review of Systems Exam Vitals Vital Signs Date Temp Pulse Resp B/P (MAP) Pulse Ox O2 O2 Flow FiO2 Time Delivery Rate 05/25/19 164/74 13:05 (104) 05/25/19 80 12:00 05/25/19 98.0 22 96 Room Air 11:36 Intake and Output 05/24/19 05/24/19 05/25/19 1515:00 23:00 07:00 IntakeIntake Total 840 ml OutputOutput Total 400 ml 700 ml 2450 ml BalanceBalance -400 ml -700 ml -1610 ml Results Result Diagram: 05/25/19 0627 05/25/19 0627 Results 24hrs Laboratory Tests Test 05/24/19 13:43 05/24/19 17:11 05/24/19 20:41 05/25/19 02:07 Bedside Glucose 122 125 128 146 Test 05/25/19 05:45 05/25/19 06:27 05/25/19 08:32 05/25/19 13:02 Bedside Glucose 141 130 128 White Blood Count 6.3 Red Blood Count 5.70 H Hemoglobin 15.9 Hematocrit 48.5 H Mean Corpuscular 85.1 Volume Mean Corpuscular 27.9 L Hemoglobin Mean Corpuscular 32.8 Hemoglobin Concent Red Cell 13.5 Distribution Width Platelet Count 314 Mean Platelet Volume 11.1 H Immature 0.500 H Granulocytes % Neutrophils % 53.8 Lymphocytes % 31.7 Monocytes % 9.4 Eosinophils % 3.8 Basophils % 0.8 Nucleated Red Blood 0.0 Cells % Immature 0.030 Granulocytes # Neutrophils # 3.4 Lymphocytes # 2.0 Monocytes # 0.6 Eosinophils # 0.2 Basophils # 0.1 Nucleated Red Blood 0.0 Cells # Sodium Level 141 Potassium Level 4.0 Chloride Level 100 Carbon Dioxide Level 28 Anion Gap 13 Blood Urea Nitrogen 20 Creatinine 0.96 Est Glomerular > 60 Filtrat Rate mL/min Glucose Level 146 Calcium Level 10.0 Phosphorus Level 4.0 Magnesium Level 1.9 Medications Medication Current Medications IV Flush (NS 3 ml) 3 ml PER PROTOCOL IV ; Start 05/09/19 at 00:00 Ondansetron HCl (Zofran Inj) 4 mg Q6H PRN IV NAUSEA/VOMITING; Start 05/09/19 at 00:00 Docusate Sodium (Colace) 100 mg Q12H PRN PO .CONSTIPATION; Start 05/09/19 at 00:00 Magnesium Hydroxide (Milk Of Mag) 30 ml DAILY PRN PO .CONSTIPATION; Start 05/09/19 at 00:00 Nitroglycerin (Nitroglycerin (Sl Tab) 0.4 Mg) 1 tab Q5M PRN SL ANGINA; Start 05/09/19 at 00:00 Insulin Aspart (Novolog Insulin Pen) NOVOLOG *MODERATE* ALGORI... Q4 SC Last administered on 05/25/19at 05:49; Admin Dose 2 UNIT; Start 05/09/19 at 18:00 Miscellaneous Information 1 ea NOTE XX ; Start 05/09/19 at 17:00 Glucose (Glutose) 15 gm Q15M PRN PO DECREASED GLUCOSE; Start 05/09/19 at 17:00 Glucose (Glutose) 22.5 gm Q15M PRN PO DECREASED GLUCOSE; Start 05/09/19 at 17:00 Dextrose (D50w Syringe) 25 ml Q15M PRN IV DECREASED GLUCOSE; Start 05/09/19 at 17:00 Dextrose (D50w Syringe) 50 ml Q15M PRN IV DECREASED GLUCOSE; Start 05/09/19 at 17:00 Glucagon (Glucagen) 1 mg Q15M PRN IM DECREASED GLUCOSE; Start 05/09/19 at 17:00 Glucose (Glutose) 15 gm Q15M PRN BUCCAL DECREASED GLUCOSE; Start 05/09/19 at 17:00 Atorvastatin Calcium (Lipitor) 80 mg HS NGT Last administered on 05/24/19 20:54; Admin Dose 80 MG; Start 05/11/19 at 21:00 Insulin Glargine (Lantus) 10 units DAILY@2000 SC Last administered on 05/24/19 20:45; Admin Dose 10 UNITS; Start 05/11/19 at 20:00 IV Flush (NS 10 ml) 10 ml PRN PRN IV IV PROTOCOL; Start 05/13/19 at 14:00 Metoprolol Tartrate (Lopressor) 200 mg BID NGT Last administered on 05/25/19at 08:35; Admin Dose 200 MG; Start 05/14/19 at 09:15 Lisinopril (Zestril) 40 mg BID GTB Last administered on 05/25/19 08:35; Admin Dose 40 MG; Start 05/15/19 at 09:00 Tramadol HCl (Ultram) 50 mg Q6H PRN NGT MODERATE PAIN LEVEL 4-6 Last administered on 05/19/19at 16:18; Admin Dose 50 MG; Start 05/18/19 at 11:00 Acetaminophen (Tylenol Liquid) 650 mg Q6H PRN NGT .PAIN 1-3 OR TEMP; Start 05/19/19 at 00:00 Famotidine (Pepcid) 20 mg Q12 NGT Last administered on 05/25/19at 08:34; Admin Dose 20 MG; Start 05/18/19 at 21:00 Hydralazine HCl (Apresoline) 100 mg Q8 NGT Last administered on 05/25/19at 13:04; Admin Dose 100 MG; Start 05/18/19 at 22:00 Spironolactone (Aldactone) 100 mg BID NGT Last administered on 05/25/19 08:34; Admin Dose 100 MG; Start 05/19/19 at 21:00 Labetalol HCl (Labetalol) 10 mg Q4H PRN IV sys bp > 160 Last administered on 05/23/19 06:24; Admin Dose 10 MG; Start 05/19/19 at 17:17 Eye Lubricant (Artificial Tears Oph) 1 drop TID BOTH EYES Last administered on 05/25/19 13:05; Admin Dose 1 DROP; Start 05/20/19 at 13:00 Lorazepam (Ativan) 1 mg Q8H PRN IV agitation; Start 05/20/19 at 17:00 Doxazosin Mesylate (Cardura) 4 mg BID NGT Last administered on 05/25/19 08:34; Admin Dose 4 MG; Start 05/22/19 at 21:00 Nifedipine (Procardia) 20 mg Q6 NGT Last administered on 05/25/19 13:04; Admin Dose 20 MG; Start 05/23/19 at 12:00 Enoxaparin Sodium (Lovenox) 125 mg Q12 SC Last administered on 05/24/19 20:49; Admin Dose 125 MG; Start 05/24/19 at 21:00 JOSÉ TORO May 25, 2019 13:20
--- NOTE | 2019-05-25 16:10 | PN ---
Date/Time of Note Date/Time of Note DATE: 05/25/19 TIME: 16:07 Assessment/Plan VTE Prophylaxis Risk score (from Nsg)>0 risk: 6 SCD applied (from Nsg): Yes Pharmacological prophylaxis: LMWH Lines/Catheters IV Catheter Type (from Nrsg): Saline Lock Urinary Cath still in place: Yes Reason Cath still needed: other (indicate) (morbidly obese, immobile) Assessment/Plan Assessment/Plan 39-year-old morbidly obese woman with history of HTN who comes in with decreased p.o. intake, lethargy preceded by delirium and nausea and vomiting. 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 #Encephalopathy-slowly improving as patient answers slightly more questions now in [place], MRI brain showed several new and old infarcts concerning for central embolic source. There there apparently was small frontal bleed which may be hemorrhagic infarct- TTE done without evidence of vegetations or thrombus - HIV negative - No concern for infectious meningitis based on LP, patient presently off antibiotics. Repeat head CT on May 20 showed some improvement in the frontal bleed. - Neurology Dr. Laurent following, monitor, follow-up their recommendations - Limit sedation as much as possible, continue PT and OT as much as possible #Upper extremity thrombosis - L upper superficial vein thrombosis involving cephalic vein. - Will start therapeutic lovenox. Discontinue aspirin. #GARDENIA - Likely due to iatrogenic vancomycin toxicity-resolved #Respiratory failure- Intubated earlier this admission due to poor mental status, but self extubated on May 15, 2019. - Currently protecting airway # Hypertension: Still on Cardene drip, adjustments made to the dosages and new p.o. regimen added a few days ago. Appreciate endocrinology consult, patient currently being worked up for other possible etiologies of secondary hypertension such as hyperaldosteronism, also considering pheochromocytoma and renal artery stenosis (although these are less likely). - Continue metoprolol (maxed), lisinopril (maxed), hydralazine (maxed), spironolactone, nifedipene (increasing dose) - Follow further recommendations from endocrinology team to further investigate any potential hyperaldosteronism source/etiology of her hypertension. # DVT prophylaxis: SCDs Result Diagram: 05/25/1962605/25/19626 Subjective 24 Hr Interval Summary Free Text/Dictation Uncontrollable bleeding form left midline; now removed. This morning mental status seems improved, although she is still very confused. She is awake and indignant, saying she wants to go home to her and children and the food in the hospital is terrible (patient is NPO getting tube feeds only). Later today when seen by PT and ST; apparently was more lethargic. Exam/Review of Systems Exam Vitals Vital Signs Date Temp Pulse Resp B/P (MAP) Pulse Ox O2 O2 Flow FiO2 Time Delivery Rate 05/25/19 98.0 88 22 136/81 96 Room Air 15:57 (99) Intake and Output 05/24/19 05/24/19 05/25/19 1515:00 23:00 07:00 IntakeIntake Total 840 ml OutputOutput Total 400 ml 700 ml 2450 ml BalanceBalance -400 ml -700 ml -1610 ml Exam Gen: Morbidly obese woman lying supine in bed, awake and alert. Eyes: Slightly injected conjunctivae. Normal pupils ENT: Normal External Ears, Nose and Mouth. Moist mucous membranes. Neck: No meningismus. No lymphadenopathy. Resp: Clear to auscultation bilaterally. Cardio: Regular rate and rhythm, no murmurs appreciated. Abd: Soft, obese, nondistended, normal bowel sounds Ext: No lower extremity edema bilaterally Results Results 24hrs Laboratory Tests Test 05/24/19 17:11 05/24/19 20:41 05/25/19 02:07 05/25/19 05:45 Bedside Glucose 125 128 146 141 Test 05/25/19 06:27 05/25/19 08:32 05/25/19 13:02 White Blood Count 6.3 Red Blood Count 5.70 H Hemoglobin 15.9 Hematocrit 48.5 H Mean Corpuscular 85.1 Volume Mean Corpuscular 27.9 L Hemoglobin Mean Corpuscular 32.8 Hemoglobin Concent Red Cell 13.5 Distribution Width Platelet Count 314 Mean Platelet Volume 11.1 H Immature 0.500 H Granulocytes % Neutrophils % 53.8 Lymphocytes % 31.7 Monocytes % 9.4 Eosinophils % 3.8 Basophils % 0.8 Nucleated Red Blood 0.0 Cells % Immature 0.030 Granulocytes # Neutrophils # 3.4 Lymphocytes # 2.0 Monocytes # 0.6 Eosinophils # 0.2 Basophils # 0.1 Nucleated Red Blood 0.0 Cells # Sodium Level 141 Potassium Level 4.0 Chloride Level 100 Carbon Dioxide Level 28 Anion Gap 13 Blood Urea Nitrogen 20 Creatinine 0.96 Est Glomerular > 60 Filtrat Rate mL/min Glucose Level 146 Calcium Level 10.0 Phosphorus Level 4.0 Magnesium Level 1.9 Bedside Glucose 130 128 Medications Medication Current Medications IV Flush (NS 3 ml) 3 ml PER PROTOCOL IV ; Start 05/09/19 at 00:00 Ondansetron HCl (Zofran Inj) 4 mg Q6H PRN IV NAUSEA/VOMITING; Start 05/09/19 at 00:00 Docusate Sodium (Colace) 100 mg Q12H PRN PO .CONSTIPATION; Start 05/09/19 at 00:00 Magnesium Hydroxide (Milk Of Mag) 30 ml DAILY PRN PO .CONSTIPATION; Start 05/09/19 at 00:00 Nitroglycerin (Nitroglycerin (Sl Tab) 0.4 Mg) 1 tab Q5M PRN SL ANGINA; Start 05/09/19 at 00:00 Insulin Aspart (Novolog Insulin Pen) NOVOLOG *MODERATE* ALGORI... Q4 SC Last administered on 05/25/19at 05:49; Admin Dose 2 UNIT; Start 05/09/19 at 18:00 Miscellaneous Information 1 ea NOTE XX ; Start 05/09/19 at 17:00 Glucose (Glutose) 15 gm Q15M PRN PO DECREASED GLUCOSE; Start 05/09/19 at 17:00 Glucose (Glutose) 22.5 gm Q15M PRN PO DECREASED GLUCOSE; Start 05/09/19 at 17:00 Dextrose (D50w Syringe) 25 ml Q15M PRN IV DECREASED GLUCOSE; Start 05/09/19 at 17:00 Dextrose (D50w Syringe) 50 ml Q15M PRN IV DECREASED GLUCOSE; Start 05/09/19 at 17:00 Glucagon (Glucagen) 1 mg Q15M PRN IM DECREASED GLUCOSE; Start 05/09/19 at 17:00 Glucose (Glutose) 15 gm Q15M PRN BUCCAL DECREASED GLUCOSE; Start 05/09/19 at 17:00 Atorvastatin Calcium (Lipitor) 80 mg HS NGT Last administered on 05/24/19at 20: 54; Admin Dose 80 MG; Start 05/11/19 at 21:00 Insulin Glargine (Lantus) 10 units DAILY@2000 SC Last administered on 05/24/19at 20:45; Admin Dose 10 UNITS; Start 05/11/19 at 20:00 IV Flush (NS 10 ml) 10 ml PRN PRN IV IV PROTOCOL; Start 05/13/19 at 14:00 Metoprolol Tartrate (Lopressor) 200 mg BID NGT Last administered on 05/25/19 08:35; Admin Dose 200 MG; Start 05/14/19 at 09:15 Lisinopril (Zestril) 40 mg BID GTB Last administered on 05/25/19 08:35; Admin Dose 40 MG; Start 05/15/19 at 09:00 Tramadol HCl (Ultram) 50 mg Q6H PRN NGT MODERATE PAIN LEVEL 4-6 Last administered on 05/19/19 16:18; Admin Dose 50 MG; Start 05/18/19 at 11:00 Acetaminophen (Tylenol Liquid) 650 mg Q6H PRN NGT .PAIN 1-3 OR TEMP; Start 05/19/19 at 00:00 Famotidine (Pepcid) 20 mg Q12 NGT Last administered on 05/25/19 08:34; Admin Dose 20 MG; Start 05/18/19 at 21:00 Hydralazine HCl (Apresoline) 100 mg Q8 NGT Last administered on 05/25/19 13:04; Admin Dose 100 MG; Start 05/18/19 at 22:00 Spironolactone (Aldactone) 100 mg BID NGT Last administered on 05/25/19 08:34; Admin Dose 100 MG; Start 05/19/19 at 21:00 Labetalol HCl (Labetalol) 10 mg Q4H PRN IV sys bp > 160 Last administered on 05/23/19 06:24; Admin Dose 10 MG; Start 05/19/19 at 17:17 Eye Lubricant (Artificial Tears Oph) 1 drop TID BOTH EYES Last administered on 05/25/19 13:05; Admin Dose 1 DROP; Start 05/20/19 at 13:00 Lorazepam (Ativan) 1 mg Q8H PRN IV agitation; Start 05/20/19 at 17:00 Doxazosin Mesylate (Cardura) 4 mg BID NGT Last administered on 05/25/19 08:34; Admin Dose 4 MG; Start 05/22/19 at 21:00 Nifedipine (Procardia) 20 mg Q6 NGT Last administered on 05/25/19at 13:04; Admin Dose 20 MG; Start 05/23/19 at 12:00 Enoxaparin Sodium (Lovenox) 125 mg Q12 SC Last administered on 05/24/19at 20:49; Admin Dose 125 MG; Start 05/24/19 at 21:00 DAVID QUIÑONEZ MD May 25, 2019 16:10
--- NOTE | 2019-05-25 19:38 | CONS ---
Assessment/Plan Assessment/Plan Problems: (1) Hypertension Status: Chronic Comment: Please consider ordering MRI scan of the abdomen including looking at renal artery flow for renal artery stenosis, and looking at the adrenal glands. Qualifiers: Hypertension type: unspecified Qualified Codes: I10 - Essential (primary) hypertension (2) Diabetes mellitus type 2 in obese Status: Chronic Comment: Adequate control (3) Hyperlipidemia Status: Chronic Comment: Stable on medications at this time Qualifiers: Hyperlipidemia type: pure hypercholesterolemia Qualified Codes: E78.00 - Pure hypercholesterolemia, unspecified Consultation Date/Type/Reason Admit Date/Time May 08, 2019 at 23:21 Initial Consult Date 05/19/19 Type of Consult Endocrinology Reason for Consultation Accelerated hypertension; status post multiple CVA; diabetes mellitus type 2; hyperlipidemia; encephalopathy Requesting Provider: DAMIEN CHOUDHARY Date/Time of Note DATE: 05/25/19 TIME: 19:37 24 HR Interval Summary Free Text/Dictation Marginally verbal but not meaningful Exam/Review of Systems Exam Vitals Vital Signs Date Temp Pulse Resp B/P (MAP) Pulse Ox O2 O2 Flow FiO2 Time Delivery Rate 05/25/19 98.1 78 20 161/80 97 Room Air 18:20 (107) Intake and Output 05/24/19 05/24/19 05/25/19 1515:00 23:00 07:00 IntakeIntake Total 840 ml OutputOutput Total 400 ml 700 ml 2450 ml BalanceBalance -400 ml -700 ml -1610 ml Exam No change in status Results Result Diagram: 05/25/19 0627 05/25/19 0627 Results 24hrs Laboratory Tests Test 05/24/19 20:41 05/25/19 02:07 05/25/19 05:45 05/25/19 06:27 Bedside Glucose 128 146 141 White Blood Count 6.3 Red Blood Count 5.70 H Hemoglobin 15.9 Hematocrit 48.5 H Mean Corpuscular 85.1 Volume Mean Corpuscular 27.9 L Hemoglobin Mean Corpuscular 32.8 Hemoglobin Concent Red Cell 13.5 Distribution Width Platelet Count 314 Mean Platelet Volume 11.1 H Immature 0.500 H Granulocytes % Neutrophils % 53.8 Lymphocytes % 31.7 Monocytes % 9.4 Eosinophils % 3.8 Basophils % 0.8 Nucleated Red Blood 0.0 Cells % Immature 0.030 Granulocytes # Neutrophils # 3.4 Lymphocytes # 2.0 Monocytes # 0.6 Eosinophils # 0.2 Basophils # 0.1 Nucleated Red Blood 0.0 Cells # Sodium Level 141 Potassium Level 4.0 Chloride Level 100 Carbon Dioxide Level 28 Anion Gap 13 Blood Urea Nitrogen 20 Creatinine 0.96 Est Glomerular > 60 Filtrat Rate mL/min Glucose Level 146 Calcium Level 10.0 Phosphorus Level 4.0 Magnesium Level 1.9 Test 05/25/19 08:32 05/25/19 13:02 05/25/19 17:13 Bedside Glucose 130 128 158 Medications Medication Current Medications IV Flush (NS 3 ml) 3 ml PER PROTOCOL IV ; Start 05/09/19 at 00:00 Ondansetron HCl (Zofran Inj) 4 mg Q6H PRN IV NAUSEA/VOMITING; Start 05/09/19 at 00:00 Docusate Sodium (Colace) 100 mg Q12H PRN PO .CONSTIPATION; Start 05/09/19 at 00:00 Magnesium Hydroxide (Milk Of Mag) 30 ml DAILY PRN PO .CONSTIPATION; Start 05/09/19 at 00:00 Nitroglycerin (Nitroglycerin (Sl Tab) 0.4 Mg) 1 tab Q5M PRN SL ANGINA; Start 05/09/19 at 00:00 Insulin Aspart (Novolog Insulin Pen) NOVOLOG *MODERATE* ALGORI... Q4 SC Last administered on 05/25/19at 17:15; Admin Dose 2 UNIT; Start 05/09/19 at 18:00 Miscellaneous Information 1 ea NOTE XX ; Start 05/09/19 at 17:00 Glucose (Glutose) 15 gm Q15M PRN PO DECREASED GLUCOSE; Start 05/09/19 at 17:00 Glucose (Glutose) 22.5 gm Q15M PRN PO DECREASED GLUCOSE; Start 05/09/19 at 17:00 Dextrose (D50w Syringe) 25 ml Q15M PRN IV DECREASED GLUCOSE; Start 05/09/19 at 17:00 Dextrose (D50w Syringe) 50 ml Q15M PRN IV DECREASED GLUCOSE; Start 05/09/19 at 17:00 Glucagon (Glucagen) 1 mg Q15M PRN IM DECREASED GLUCOSE; Start 05/09/19 at 17:00 Glucose (Glutose) 15 gm Q15M PRN BUCCAL DECREASED GLUCOSE; Start 05/09/19 at 17:00 Atorvastatin Calcium (Lipitor) 80 mg HS NGT Last administered on 05/24/19 20:54; Admin Dose 80 MG; Start 05/11/19 at 21:00 Insulin Glargine (Lantus) 10 units DAILY@2000 SC Last administered on 05/24/19 20:45; Admin Dose 10 UNITS; Start 05/11/19 at 20:00 IV Flush (NS 10 ml) 10 ml PRN PRN IV IV PROTOCOL; Start 05/13/19 at 14:00 Metoprolol Tartrate (Lopressor) 200 mg BID NGT Last administered on 05/25/19 08:35; Admin Dose 200 MG; Start 05/14/19 at 09:15 Lisinopril (Zestril) 40 mg BID GTB Last administered on 05/25/19 08:35; Admin Dose 40 MG; Start 05/15/19 at 09:00 Tramadol HCl (Ultram) 50 mg Q6H PRN NGT MODERATE PAIN LEVEL 4-6 Last administered on 05/19/19 16:18; Admin Dose 50 MG; Start 05/18/19 at 11:00 Acetaminophen (Tylenol Liquid) 650 mg Q6H PRN NGT .PAIN 1-3 OR TEMP; Start 05/19/19 at 00:00 Famotidine (Pepcid) 20 mg Q12 NGT Last administered on 05/25/19 08:34; Admin Dose 20 MG; Start 05/18/19 at 21:00 Hydralazine HCl (Apresoline) 100 mg Q8 NGT Last administered on 05/25/19 13:04; Admin Dose 100 MG; Start 05/18/19 at 22:00 Spironolactone (Aldactone) 100 mg BID NGT Last administered on 05/25/19 08:34; Admin Dose 100 MG; Start 05/19/19 at 21:00 Labetalol HCl (Labetalol) 10 mg Q4H PRN IV sys bp > 160 Last administered on 05/23/19 06:24; Admin Dose 10 MG; Start 05/19/19 at 17:17 Eye Lubricant (Artificial Tears Oph) 1 drop TID BOTH EYES Last administered on 05/25/19 13:05; Admin Dose 1 DROP; Start 05/20/19 at 13:00 Lorazepam (Ativan) 1 mg Q8H PRN IV agitation; Start 05/20/19 at 17:00 Doxazosin Mesylate (Cardura) 4 mg BID NGT Last administered on 05/25/19at 08:34; Admin Dose 4 MG; Start 05/22/19 at 21:00 Nifedipine (Procardia) 20 mg Q6 NGT Last administered on 05/25/19at 17:12; Admin Dose 20 MG; Start 05/23/19 at 12:00 Enoxaparin Sodium (Lovenox) 125 mg Q12 SC Last administered on 05/24/19at 20:49; Admin Dose 125 MG; Start 05/24/19 at 21:00 VALENTINO MAYER MD May 25, 2019 19:38
[2019-05-25] MEDS: INSULIN GLARGINE [LANTus] (100 UNITS/ML) SYG SC SCH (20:00)
[2019-05-25] MEDS: ATORVASTATIN 80 MG TAB NGT SCH (21:36)
[2019-05-26] VITALS (12 sets, daily range): BP systolic 140–182; BP diastolic 74–98; PULSE 76–95; RESP 18–22
[2019-05-26] MEDS: NIFEdipine 10 MG CAP NGT SCH ×4 (00:28→17:27)
[2019-05-26] MEDS: INSULIN ASPART [NOVOLOG] 3 ML PEN SC SCH ×6 (00:38→20:55)
[2019-05-26] MEDS: ARTIFICIAL TEARS 15 ML OPH BOTH EYES SCH ×3 (08:35→20:55)
[2019-05-26] MEDS: FAMOTIDINE 20 MG TAB NGT SCH ×2 (08:36→21:01)
[2019-05-26] MEDS: ENOXAPARIN 100 MG/ML SYG SC SCH ×2 (08:36→21:20)
[2019-05-26] MEDS: SPIRONOLACTONE 50 MG TAB NGT SCH ×2 (08:36→21:12)
[2019-05-26] MEDS: LISINOPRIL 20 MG TAB GTB SCH ×2 (08:37→21:02)
[2019-05-26] MEDS: METOPROLOL 100 MG TAB NGT SCH ×2 (08:37→21:12)
[2019-05-26] MEDS: DOXAZOSIN 4 MG TAB NGT SCH ×2 (08:37→21:01)
--- NOTE | 2019-05-26 10:58 | CONS ---
Assessment/Plan Assessment/Plan Assessment/Plan (Recall) 39 F c/ reported Hx of DM2, who presents for evaluation of multiple complaints, including GI Sx...and eventual ams, for which neurology is consulted. 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 The clinical picture was initially concerning for meningoencephalitis..CSF evaluation is inconsistent w/ infection...the erythrocytosis possibly due to a traumatic tap.. Head CT was notable for a left frontal hyperdensity, likely hemorrhagic t ransformation of an above referenced focus of acute ischemia is the context of severe hypertension.. CTA head and neck is negative for multifocal stenoses, which might otherwise suggests vasculitis, etc. TTE is unrevealing; SOFIA was deferred.. EEG was without epileptiform activity Ammonia wnl, HIV/RPR neg, ESR wnl Hypercoagulability panel is negative.. P: Repeat MRI brain for surveillance Hold asa while on therapeutic anticoagulation... Continued BP control to goal normotension PT/OT/ST as able Continue to hold all sedating medications where possible Other management and supportive care per primary Will follow clinically Consultation Date/Type/Reason Admit Date/Time May 08, 2019 at 23:21 Type of Consult Neurology Reason for Consultation ams Requesting Provider: DAMIEN CHOUDHARY Date/Time of Note DATE: 05/26/19 TIME: 10:56 24 HR Interval Summary Free Text/Dictation continues acute care Exam/Review of Systems Exam Vitals Vital Signs Date Temp Pulse Resp B/P (MAP) Pulse Ox O2 O2 Flow FiO2 Time Delivery Rate 05/26/19 98.0 85 20 141/89 95 Room Air 10:00 (106) Intake and Output 05/25/19 05/25/19 05/26/19 1515:00 23:00 07:00 IntakeIntake Total 860 ml OutputOutput Total 1880 ml 200 ml BalanceBalance -1880 ml 660 ml Results Result Diagram: 05/26/1962205/26/19622 Results 24hrs Laboratory Tests Test 05/25/19 13:02 05/25/19 17:13 05/25/19 19:55 05/25/19 21:10 Bedside Glucose 128 158 160 149 Test 05/26/19 00:34 05/26/19 04:51 05/26/19 06:23 05/26/19 08:34 Bedside Glucose 179 177 134 White Blood Count 6.2 Red Blood Count 5.56 H Hemoglobin 15.6 Hematocrit 49.0 H Mean Corpuscular 88.1 Volume Mean Corpuscular 28.1 L Hemoglobin Mean Corpuscular 31.8 L Hemoglobin Concent Red Cell 13.3 Distribution Width Platelet Count 313 Mean Platelet Volume 10.9 H Immature 0.300 Granulocytes % Neutrophils % 54.0 Lymphocytes % 30.3 Monocytes % 9.4 Eosinophils % 5.2 Basophils % 0.8 Nucleated Red Blood 0.0 Cells % Immature 0.020 Granulocytes # Neutrophils # 3.4 Lymphocytes # 1.9 Monocytes # 0.6 Eosinophils # 0.3 Basophils # 0.1 Nucleated Red Blood 0.0 Cells # Sodium Level 139 Potassium Level 4.5 Chloride Level 103 Carbon Dioxide Level 26 Anion Gap 10 Blood Urea Nitrogen 27 H Creatinine 1.02 H Est Glomerular 60 Filtrat Rate mL/min Glucose Level 169 Calcium Level 9.5 Medications Medication Current Medications IV Flush (NS 3 ml) 3 ml PER PROTOCOL IV ; Start 05/09/19 at 00:00 Ondansetron HCl (Zofran Inj) 4 mg Q6H PRN IV NAUSEA/VOMITING; Start 05/09/19 at 00:00 Docusate Sodium (Colace) 100 mg Q12H PRN PO .CONSTIPATION; Start 05/09/19 at 00:00 Magnesium Hydroxide (Milk Of Mag) 30 ml DAILY PRN PO .CONSTIPATION; Start 05/09/19 at 00:00 Nitroglycerin (Nitroglycerin (Sl Tab) 0.4 Mg) 1 tab Q5M PRN SL ANGINA; Start 05/09/19 at 00:00 Insulin Aspart (Novolog Insulin Pen) NOVOLOG *MODERATE* ALGORI... Q4 SC Last administered on 05/26/19at 04:56; Admin Dose 2 UNIT; Start 05/09/19 at 18:00 Miscellaneous Information 1 ea NOTE XX ; Start 05/09/19 at 17:00 Glucose (Glutose) 15 gm Q15M PRN PO DECREASED GLUCOSE; Start 05/09/19 at 17:00 Glucose (Glutose) 22.5 gm Q15M PRN PO DECREASED GLUCOSE; Start 05/09/19 at 17:00 Dextrose (D50w Syringe) 25 ml Q15M PRN IV DECREASED GLUCOSE; Start 05/09/19 at 17:00 Dextrose (D50w Syringe) 50 ml Q15M PRN IV DECREASED GLUCOSE; Start 05/09/19 at 17:00 Glucagon (Glucagen) 1 mg Q15M PRN IM DECREASED GLUCOSE; Start 05/09/19 at 17:00 Glucose (Glutose) 15 gm Q15M PRN BUCCAL DECREASED GLUCOSE; Start 05/09/19 at 17:00 Atorvastatin Calcium (Lipitor) 80 mg HS NGT Last administered on 05/25/19 21:36; Admin Dose 80 MG; Start 05/11/19 at 21:00 Insulin Glargine (Lantus) 10 units DAILY@2000 SC Last administered on 05/25/19 20:00; Admin Dose 10 UNITS; Start 05/11/19 at 20:00 IV Flush (NS 10 ml) 10 ml PRN PRN IV IV PROTOCOL; Start 05/13/19 at 14:00 Metoprolol Tartrate (Lopressor) 200 mg BID NGT Last administered on 05/26/19 08:37; Admin Dose 200 MG; Start 05/14/19 at 09:15 Lisinopril (Zestril) 40 mg BID GTB Last administered on 05/26/19 08:37; Admin Dose 40 MG; Start 05/15/19 at 09:00 Tramadol HCl (Ultram) 50 mg Q6H PRN NGT MODERATE PAIN LEVEL 4-6 Last administered on 05/19/19 16:18; Admin Dose 50 MG; Start 05/18/19 at 11:00 Acetaminophen (Tylenol Liquid) 650 mg Q6H PRN NGT .PAIN 1-3 OR TEMP; Start 05/19/19 at 00:00 Famotidine (Pepcid) 20 mg Q12 NGT Last administered on 05/26/19 08:36; Admin Dose 20 MG; Start 05/18/19 at 21:00 Hydralazine HCl (Apresoline) 100 mg Q8 NGT Last administered on 05/26/19 05 :37; Admin Dose 100 MG; Start 05/18/19 at 22:00 Spironolactone (Aldactone) 100 mg BID NGT Last administered on 05/26/19 08:36; Admin Dose 100 MG; Start 05/19/19 at 21:00 Labetalol HCl (Labetalol) 10 mg Q4H PRN IV sys bp > 160 Last administered on 05/23/19 06:24; Admin Dose 10 MG; Start 05/19/19 at 17:17 Eye Lubricant (Artificial Tears Oph) 1 drop TID BOTH EYES Last administered on 05/26/19 08:35; Admin Dose 1 DROP; Start 05/20/19 at 13:00 Lorazepam (Ativan) 1 mg Q8H PRN IV agitation; Start 05/20/19 at 17:00 Doxazosin Mesylate (Cardura) 4 mg BID NGT Last administered on 05/26/19 08:37; Admin Dose 4 MG; Start 05/22/19 at 21:00 Nifedipine (Procardia) 20 mg Q6 NGT Last administered on 05/26/19 06:48; Admin Dose 20 MG; Start 05/23/19 at 12:00 Enoxaparin Sodium (Lovenox) 125 mg Q12 SC Last administered on 05/26/19 08:36; Admin Dose 125 MG; Start 05/24/19 at 21:00 JOSÉ TORO May 26, 2019 10:58
--- NOTE | 2019-05-26 12:42 | CONS ---
Consult Date/Type/Reason Admit Date/Time May 08, 2019 at 23:21 Initial Consult Date 05/19/19 Type of Consult Pulmonary Requesting Provider: DAMIEN CHOUDHARY Date/Time of Note DATE: 05/26/19 TIME: 12:42 Objective Vital Signs Date Temp Pulse Resp B/P (MAP) Pulse Ox O2 O2 Flow FiO2 Time Delivery Rate 05/26/19 98.1 79 20 149/89 95 Room Air 12:19 (109) Intake and Output 05/25/19 05/25/19 05/26/19 1515:00 23:00 07:00 IntakeIntake Total 860 ml OutputOutput Total 1880 ml 200 ml BalanceBalance -1880 ml 660 ml Exam GENERAL: Well-nourished well-developed lady comfortable at rest VITAL SIGNS: per chart NECK: Supple. No JVD or lymphadenopathy. CARDIAC EXAM: S1, S2. No added sounds or murmurs. CHEST: clear bilaterally, No added sounds, rales or wheezes ABDOMEN: Soft, nontender. No guarding or rebound. EXTREMITIES: No cyanosis, clubbing or edema. NEUROLOGIC: Generalized weakness. No focal deficits. Vent Setting Ventilator Support Mode: AC Fraction of Inspired Oxygen pe: 21 Positive End Expiratory Pressu: 5.0 Results/Medications Result Diagram: 05/26/1962205/26/1923 Results 24 hrs Laboratory Tests Test 05/25/19 13:02 05/25/19 17:13 05/25/19 19:55 05/25/19 21:10 Bedside Glucose 128 158 160 149 Test 05/26/19 00:34 05/26/19 04:51 05/26/19 06:23 05/26/19 08:34 Bedside Glucose 179 177 134 White Blood Count 6.2 Red Blood Count 5.56 H Hemoglobin 15.6 Hematocrit 49.0 H Mean Corpuscular 88.1 Volume Mean Corpuscular 28.1 L Hemoglobin Mean Corpuscular 31.8 L Hemoglobin Concent Red Cell 13.3 Distribution Width Platelet Count 313 Mean Platelet Volume 10.9 H Immature 0.300 Granulocytes % Neutrophils % 54.0 Lymphocytes % 30.3 Monocytes % 9.4 Eosinophils % 5.2 Basophils % 0.8 Nucleated Red Blood 0.0 Cells % Immature 0.020 Granulocytes # Neutrophils # 3.4 Lymphocytes # 1.9 Monocytes # 0.6 Eosinophils # 0.3 Basophils # 0.1 Nucleated Red Blood 0.0 Cells # Sodium Level 139 Potassium Level 4.5 Chloride Level 103 Carbon Dioxide Level 26 Anion Gap 10 Blood Urea Nitrogen 27 H Creatinine 1.02 H Est Glomerular 60 Filtrat Rate mL/min Glucose Level 169 Calcium Level 9.5 Test 05/26/19 12:17 Bedside Glucose 151 Medications Current Medications IV Flush (NS 3 ml) 3 ml PER PROTOCOL IV ; Start 05/09/19 at 00:00 Ondansetron HCl (Zofran Inj) 4 mg Q6H PRN IV NAUSEA/VOMITING; Start 05/09/19 at 00:00 Docusate Sodium (Colace) 100 mg Q12H PRN PO .CONSTIPATION; Start 05/09/19 at 00:00 Magnesium Hydroxide (Milk Of Mag) 30 ml DAILY PRN PO .CONSTIPATION; Start 05/09/19 at 00:00 Nitroglycerin (Nitroglycerin (Sl Tab) 0.4 Mg) 1 tab Q5M PRN SL ANGINA; Start 05/09/19 at 00:00 Insulin Aspart (Novolog Insulin Pen) NOVOLOG *MODERATE* ALGORI... Q4 SC Last administered on 05/26/19at 12:18; Admin Dose 2 UNIT; Start 05/09/19 at 18:00 Miscellaneous Information 1 ea NOTE XX ; Start 05/09/19 at 17:00 Glucose (Glutose) 15 gm Q15M PRN PO DECREASED GLUCOSE; Start 05/09/19 at 17:00 Glucose (Glutose) 22.5 gm Q15M PRN PO DECREASED GLUCOSE; Start 05/09/19 at 17:00 Dextrose (D50w Syringe) 25 ml Q15M PRN IV DECREASED GLUCOSE; Start 05/09/19 at 17:00 Dextrose (D50w Syringe) 50 ml Q15M PRN IV DECREASED GLUCOSE; Start 05/09/19 at 17:00 Glucagon (Glucagen) 1 mg Q15M PRN IM DECREASED GLUCOSE; Start 05/09/19 at 17:00 Glucose (Glutose) 15 gm Q15M PRN BUCCAL DECREASED GLUCOSE; Start 05/09/19 at 17:00 Atorvastatin Calcium (Lipitor) 80 mg HS NGT Last administered on 05/25/19at 21:36; Admin Dose 80 MG; Start 05/11/19 at 21:00 Insulin Glargine (Lantus) 10 units DAILY@2000 SC Last administered on 05/25/19 20:00; Admin Dose 10 UNITS; Start 05/11/19 at 20:00 IV Flush (NS 10 ml) 10 ml PRN PRN IV IV PROTOCOL; Start 05/13/19 at 14:00 Metoprolol Tartrate (Lopressor) 200 mg BID NGT Last administered on 05/26/19 08:37; Admin Dose 200 MG; Start 05/14/19 at 09:15 Lisinopril (Zestril) 40 mg BID GTB Last administered on 05/26/19 08:37; Admin Dose 40 MG; Start 05/15/19 at 09:00 Tramadol HCl (Ultram) 50 mg Q6H PRN NGT MODERATE PAIN LEVEL 4-6 Last administered on 05/19/19 16:18; Admin Dose 50 MG; Start 05/18/19 at 11:00 Acetaminophen (Tylenol Liquid) 650 mg Q6H PRN NGT .PAIN 1-3 OR TEMP; Start 05/19/19 at 00:00 Famotidine (Pepcid) 20 mg Q12 NGT Last administered on 05/26/19 08:36; Admin Dose 20 MG; Start 05/18/19 at 21:00 Hydralazine HCl (Apresoline) 100 mg Q8 NGT Last administered on 05/26/19 05:37; Admin Dose 100 MG; Start 05/18/19 at 22:00 Spironolactone (Aldactone) 100 mg BID NGT Last administered on 05/26/19 08:36; Admin Dose 100 MG; Start 05/19/19 at 21:00 Labetalol HCl (Labetalol) 10 mg Q4H PRN IV sys bp > 160 Last administered on 05/23/19 06:24; Admin Dose 10 MG; Start 05/19/19 at 17:17 Eye Lubricant (Artificial Tears Oph) 1 drop TID BOTH EYES Last administered on 05/26/19 12:18; Admin Dose 1 DROP; Start 05/20/19 at 13:00 Lorazepam (Ativan) 1 mg Q8H PRN IV agitation; Start 05/20/19 at 17:00 Doxazosin Mesylate (Cardura) 4 mg BID NGT Last administered on 05/26/19at 08:37; Admin Dose 4 MG; Start 05/22/19 at 21:00 Nifedipine (Procardia) 20 mg Q6 NGT Last administered on 05/26/19at 12:19; Admin Dose 20 MG; Start 05/23/19 at 12:00 Enoxaparin Sodium (Lovenox) 125 mg Q12 SC Last administered on 05/26/19at 08:36; Admin Dose 125 MG; Start 05/24/19 at 21:00 Assessment/Plan Hospital Course (Demo Recall) Assessment 1. Patient admitted with hypertensive crisis with intracranial bleed with gradual interval neurological improvement. 2. Status post self extubation few days ago with stable pulmonary status. 3. Persistent refractory hypertension, requiring nicardipine drip. Patient on a very aggressive antihypertensive regimen. 4. History of diabetes. 5. Upper extremity deep vein thrombosis Plan 1. Continue aspiration precautions 2. Continue antihypertensives 3. Endocrinology recommendations 4. Physical therapy encourage out of bed dc planning ? MANUELITO PERSON MD, [facility] May 26, 2019 12:42
--- NOTE | 2019-05-26 14:25 | PN ---
Date/Time of Note Date/Time of Note DATE: 05/26/19 TIME: 14:23 Assessment/Plan VTE Prophylaxis Risk score (from Nsg)>0 risk: 7 SCD applied (from Ns): No SCD contraindicated: other (no) Pharmacological prophylaxis: LMWH Lines/Catheters IV Catheter Type (from Nrsg): Saline Lock Urinary Cath still in place: Yes Reason Cath still needed: other (indicate) (morbidly obese, immobile) Assessment/Plan Assessment/Plan 39-year-old morbidly obese woman with history of HTN who comes in with decreased p.o. intake, lethargy preceded by delirium and nausea and vomiting. 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 #Encephalopathy-slowly improving as patient answers slightly more questions now in [place], MRI brain showed several new and old infarcts concerning for central embolic source. There there apparently was small frontal bleed which may be hemorrhagic infarct - TTE done without evidence of vegetations or thrombus - HIV negative - No concern for infectious meningitis based on LP, patient presently off antibiotics. Repeat head CT on May 20 showed some improvement in the frontal bleed. - Neurology Dr. Laurent following - Limit sedation as much as possible, continue PT and OT as much as possible - Plan to repeat MRI brain for surveillance. #Upper extremity thrombosis - L upper superficial vein thrombosis involving cephalic vein. - Will start therapeutic lovenox. Discontinue aspirin. #GARDENIA - Likely due to iatrogenic vancomycin toxicity-resolved #Respiratory failure- Intubated earlier this admission due to poor mental status, but self extubated on May 15, 2019. - Currently protecting airway # Hypertension: Still on Cardene drip, adjustments made to the dosages and new p.o. regimen added a few days ago. Appreciate endocrinology consult, patient currently being worked up for other possible etiologies of secondary hypertension such as hyperaldosteronism, also considering pheochromocytoma and renal artery stenosis (although these are less likely). - Continue metoprolol (maxed), lisinopril (maxed), hydralazine (maxed), spironolactone, nifedipene (increasing dose) - Follow further recommendations from endocrinology team to further investigate any potential hyperaldosteronism source/etiology of her hyperte nsion. # DVT prophylaxis: SCDs Result Diagram: 05/26/1923 05/26/19622 Subjective 24 Hr Interval Summary Free Text/Dictation No acute overnight events. On my exam today patient is more lethargic. She was able to sit up with physical therapy today. Exam/Review of Systems Exam Vitals Vital Signs Date Temp Pulse Resp B/P (MAP) Pulse Ox O2 O2 Flow FiO2 Time Delivery Rate 05/26/19 98.0 81 20 177/91 94 Room Air 14:00 (119) Intake and Output 05/25/19 05/25/19 05/26/19 1515:00 23:00 07:00 IntakeIntake Total 860 ml OutputOutput Total 1880 ml 200 ml BalanceBalance -1880 ml 660 ml Exam Gen: Morbidly obese woman lying supine in bed, sleepy Eyes: Slightly injected conjunctivae. Normal pupils ENT: Normal External Ears, Nose and Mouth. Moist mucous membranes. Neck: No meningismus. No lymphadenopathy. Resp: Clear to auscultation bilaterally. Cardio: Regular rate and rhythm, no murmurs appreciated. Abd: Soft, obese, nondistended, normal bowel sounds Ext: No lower extremity edema bilaterally Results Results 24hrs Laboratory Tests Test 05/25/19 17:13 05/25/19 19:55 05/25/19 21:10 05/26/19 00:34 Bedside Glucose 158 160 149 179 Test 05/26/19 04:51 05/26/19 06:23 05/26/19 08:34 05/26/19 12:17 Bedside Glucose 177 134 151 White Blood Count 6.2 Red Blood Count 5.56 H Hemoglobin 15.6 Hematocrit 49.0 H Mean Corpuscular 88.1 Volume Mean Corpuscular 28.1 L Hemoglobin Mean Corpuscular 31.8 L Hemoglobin Concent Red Cell 13.3 Distribution Width Platelet Count 313 Mean Platelet Volume 10.9 H Immature 0.300 Granulocytes % Neutrophils % 54.0 Lymphocytes % 30.3 Monocytes % 9.4 Eosinophils % 5.2 Basophils % 0.8 Nucleated Red Blood 0.0 Cells % Immature 0.020 Granulocytes # Neutrophils # 3.4 Lymphocytes # 1.9 Monocytes # 0.6 Eosinophils # 0.3 Basophils # 0.1 Nucleated Red Blood 0.0 Cells # Sodium Level 139 Potassium Level 4.5 Chloride Level 103 Carbon Dioxide Level 26 Anion Gap 10 Blood Urea Nitrogen 27 H Creatinine 1.02 H Est Glomerular 60 Filtrat Rate mL/min Glucose Level 169 Calcium Level 9.5 Medications Medication Current Medications IV Flush (NS 3 ml) 3 ml PER PROTOCOL IV ; Start 05/09/19 at 00:00 Ondansetron HCl (Zofran Inj) 4 mg Q6H PRN IV NAUSEA/VOMITING; Start 05/09/19 at 00:00 Docusate Sodium (Colace) 100 mg Q12H PRN PO .CONSTIPATION; Start 05/09/19 at 00:00 Magnesium Hydroxide (Milk Of Mag) 30 ml DAILY PRN PO .CONSTIPATION; Start 05/09/19 at 00:00 Nitroglycerin (Nitroglycerin (Sl Tab) 0.4 Mg) 1 tab Q5M PRN SL ANGINA; Start 05/09/19 at 00:00 Insulin Aspart (Novolog Insulin Pen) NOVOLOG *MODERATE* ALGORI... Q4 SC Last administered on 05/26/19at 12:18; Admin Dose 2 UNIT; Start 05/09/19 at 18:00 Miscellaneous Information 1 ea NOTE XX ; Start 05/09/19 at 17:00 Glucose (Glutose) 15 gm Q15M PRN PO DECREASED GLUCOSE; Start 05/09/19 at 17:00 Glucose (Glutose) 22.5 gm Q15M PRN PO DECREASED GLUCOSE; Start 05/09/19 at 17:00 Dextrose (D50w Syringe) 25 ml Q15M PRN IV DECREASED GLUCOSE; Start 05/09/19 at 17:00 Dextrose (D50w Syringe) 50 ml Q15M PRN IV DECREASED GLUCOSE; Start 05/09/19 at 17:00 Glucagon (Glucagen) 1 mg Q15M PRN IM DECREASED GLUCOSE; Start 05/09/19 at 17:00 Glucose (Glutose) 15 gm Q15M PRN BUCCAL DECREASED GLUCOSE; Start 05/09/19 at 17:00 Atorvastatin Calcium (Lipitor) 80 mg HS NGT Last administered on 05/25/19at 21:36; Admin Dose 80 MG; Start 05/11/19 at 21:00 Insulin Glargine (Lantus) 10 units DAILY@2000 SC Last administered on 05/25/19at 20:00; Admin Dose 10 UNITS; Start 05/11/19 at 20:00 IV Flush (NS 10 ml) 10 ml PRN PRN IV IV PROTOCOL; Start 05/13/19 at 14:00 Metoprolol Tartrate (Lopressor) 200 mg BID NGT Last administered on 05/26/19 08:37; Admin Dose 200 MG; Start 05/14/19 at 09:15 Lisinopril (Zestril) 40 mg BID GTB Last administered on 05/26/19 08:37; Admin Dose 40 MG; Start 05/15/19 at 09:00 Tramadol HCl (Ultram) 50 mg Q6H PRN NGT MODERATE PAIN LEVEL 4-6 Last administered on 05/19/19 16:18; Admin Dose 50 MG; Start 05/18/19 at 11:00 Acetaminophen (Tylenol Liquid) 650 mg Q6H PRN NGT .PAIN 1-3 OR TEMP; Start 05/19/19 at 00:00 Famotidine (Pepcid) 20 mg Q12 NGT Last administered on 05/26/19 08:36; Admin Dose 20 MG; Start 05/18/19 at 21:00 Hydralazine HCl (Apresoline) 100 mg Q8 NGT Last administered on 05/26/19 05:37; Admin Dose 100 MG; Start 05/18/19 at 22:00 Spironolactone (Aldactone) 100 mg BID NGT Last administered on 05/26/19 08:36; Admin Dose 100 MG; Start 05/19/19 at 21:00 Labetalol HCl (Labetalol) 10 mg Q4H PRN IV sys bp > 160 Last administered on 05/23/19 06:24; Admin Dose 10 MG; Start 05/19/19 at 17:17 Eye Lubricant (Artificial Tears Oph) 1 drop TID BOTH EYES Last administered on 05/26/19 12:18; Admin Dose 1 DROP; Start 05/20/19 at 13:00 Lorazepam (Ativan) 1 mg Q8H PRN IV agitation; Start 05/20/19 at 17:00 Doxazosin Mesylate (Cardura) 4 mg BID NGT Last administered on 05/26/19 08:37; Admin Dose 4 MG; Start 05/22/19 at 21:00 Nifedipine (Procardia) 20 mg Q6 NGT Last administered on 05/26/19 12:19; Admin Dose 20 MG; Start 05/23/19 at 12:00 Enoxaparin Sodium (Lovenox) 125 mg Q12 SC Last administered on 05/26/19at 08:36; Admin Dose 125 MG; Start 05/24/19 at 21:00 DAVID QUIÑONEZ MD May 26, 2019 14:25
--- NOTE | 2019-05-26 19:28 | CONS ---
Assessment/Plan Assessment/Plan Problems: (1) Hypertension Status: Chronic Comment: Again try for MRI scanning of the abdomen. These note this patient is not on a ventilator not sedated Qualifiers: Hypertension type: unspecified Qualified Codes: I10 - Essential (primary) hypertension Consultation Date/Type/Reason Admit Date/Time May 08, 2019 at 23:21 Initial Consult Date 05/19/19 Type of Consult Endocrinology Reason for Consultation Accelerated hypertension Requesting Provider: DAMIEN CHOUDHARY Date/Time of Note DATE: 05/26/19 TIME: 19:27 24 HR Interval Summary Free Text/Dictation No new complaints, no changes Exam/Review of Systems Exam Vitals Vital Signs Date Temp Pulse Resp B/P (MAP) Pulse Ox O2 O2 Flow FiO2 Time Delivery Rate 05/26/19 98.4 80 20 150/85 96 Room Air 18:00 (106) Intake and Output 05/25/19 05/25/19 05/26/19 1515:00 23:00 07:00 IntakeIntake Total 860 ml OutputOutput Total 1880 ml 200 ml BalanceBalance -1880 ml 660 ml Exam No change in examination Results Result Diagram: 05/26/19 0623 05/26/19 0623 Results 24hrs Laboratory Tests Test 05/25/19 19:55 05/25/19 21:10 05/26/19 00:34 05/26/19 04:51 Bedside Glucose 160 149 179 177 Test 05/26/19 06:23 05/26/19 08:34 05/26/19 12:17 05/26/19 17:25 White Blood Count 6.2 Red Blood Count 5.56 H Hemoglobin 15.6 Hematocrit 49.0 H Mean Corpuscular 88.1 Volume Mean Corpuscular 28.1 L Hemoglobin Mean Corpuscular 31.8 L Hemoglobin Concent Red Cell 13.3 Distribution Width Platelet Count 313 Mean Platelet Volume 10.9 H Immature 0.300 Granulocytes % Neutrophils % 54.0 Lymphocytes % 30.3 Monocytes % 9.4 Eosinophils % 5.2 Basophils % 0.8 Nucleated Red Blood 0.0 Cells % Immature 0.020 Granulocytes # Neutrophils # 3.4 Lymphocytes # 1.9 Monocytes # 0.6 Eosinophils # 0.3 Basophils # 0.1 Nucleated Red Blood 0.0 Cells # Sodium Level 139 Potassium Level 4.5 Chloride Level 103 Carbon Dioxide Level 26 Anion Gap 10 Blood Urea Nitrogen 27 H Creatinine 1.02 H Est Glomerular 60 Filtrat Rate mL/min Glucose Level 169 Calcium Level 9.5 Bedside Glucose 134 151 169 Medications Medication Current Medications IV Flush (NS 3 ml) 3 ml PER PROTOCOL IV ; Start 05/09/19 at 00:00 Ondansetron HCl (Zofran Inj) 4 mg Q6H PRN IV NAUSEA/VOMITING; Start 05/09/19 at 00:00 Docusate Sodium (Colace) 100 mg Q12H PRN PO .CONSTIPATION; Start 05/09/19 at 00:00 Magnesium Hydroxide (Milk Of Mag) 30 ml DAILY PRN PO .CONSTIPATION; Start 05/09/19 at 00:00 Nitroglycerin (Nitroglycerin (Sl Tab) 0.4 Mg) 1 tab Q5M PRN SL ANGINA; Start 05/09/19 at 00:00 Insulin Aspart (Novolog Insulin Pen) NOVOLOG *MODERATE* ALGORI... Q4 SC Last administered on 05/26/19at 17:27; Admin Dose 2 UNIT; Start 05/09/19 at 18:00 Miscellaneous Information 1 ea NOTE XX ; Start 05/09/19 at 17:00 Glucose (Glutose) 15 gm Q15M PRN PO DECREASED GLUCOSE; Start 05/09/19 at 17:00 Glucose (Glutose) 22.5 gm Q15M PRN PO DECREASED GLUCOSE; Start 05/09/19 at 17:00 Dextrose (D50w Syringe) 25 ml Q15M PRN IV DECREASED GLUCOSE; Start 05/09/19 at 17:00 Dextrose (D50w Syringe) 50 ml Q15M PRN IV DECREASED GLUCOSE; Start 05/09/19 at 17:00 Glucagon (Glucagen) 1 mg Q15M PRN IM DECREASED GLUCOSE; Start 05/09/19 at 17:00 Glucose (Glutose) 15 gm Q15M PRN BUCCAL DECREASED GLUCOSE; Start 05/09/19 at 17:00 Atorvastatin Calcium (Lipitor) 80 mg HS NGT Last administered on 05/25/19at 21:36; Admin Dose 80 MG; Start 05/11/19 at 21:00 Insulin Glargine (Lantus) 10 units DAILY@2000 SC Last administered on 05/25/19at 20:00; Admin Dose 10 UNITS; Start 05/11/19 at 20:00 IV Flush (NS 10 ml) 10 ml PRN PRN IV IV PROTOCOL; Start 05/13/19 at 14:00 Metoprolol Tartrate (Lopressor) 200 mg BID NGT Last administered on 05/26/19 08:37; Admin Dose 200 MG; Start 05/14/19 at 09:15 Lisinopril (Zestril) 40 mg BID GTB Last administered on 05/26/19 08:37; Admin Dose 40 MG; Start 05/15/19 at 09:00 Tramadol HCl (Ultram) 50 mg Q6H PRN NGT MODERATE PAIN LEVEL 4-6 Last administered on 05/19/19 16:18; Admin Dose 50 MG; Start 05/18/19 at 11:00 Acetaminophen (Tylenol Liquid) 650 mg Q6H PRN NGT .PAIN 1-3 OR TEMP; Start 05/19/19 at 00:00 Famotidine (Pepcid) 20 mg Q12 NGT Last administered on 05/26/19 08:36; Admin Dose 20 MG; Start 05/18/19 at 21:00 Hydralazine HCl (Apresoline) 100 mg Q8 NGT Last administered on 05/26/19 15:05; Admin Dose 100 MG; Start 05/18/19 at 22:00 Spironolactone (Aldactone) 100 mg BID NGT Last administered on 05/26/19 08:36; Admin Dose 100 MG; Start 05/19/19 at 21:00 Labetalol HCl (Labetalol) 10 mg Q4H PRN IV sys bp > 160 Last administered on 05/23/19 06:24; Admin Dose 10 MG; Start 05/19/19 at 17:17 Eye Lubricant (Artificial Tears Oph) 1 drop TID BOTH EYES Last administered on 05/26/19 12:18; Admin Dose 1 DROP; Start 05/20/19 at 13:00 Lorazepam (Ativan) 1 mg Q8H PRN IV agitation; Start 05/20/19 at 17:00 Doxazosin Mesylate (Cardura) 4 mg BID NGT Last administered on 05/26/19 08:37; Admin Dose 4 MG; Start 05/22/19 at 21:00 Nifedipine (Procardia) 20 mg Q6 NGT Last administered on 05/26/19at 17:27; Admin Dose 20 MG; Start 05/23/19 at 12:00 Enoxaparin Sodium (Lovenox) 125 mg Q12 SC Last administered on 05/26/19at 08:36; Admin Dose 125 MG; Start 05/24/19 at 21:00 VALENTINO MAYER MD May 26, 2019 19:28
[2019-05-26] MEDS: INSULIN GLARGINE [LANTus] (100 UNITS/ML) SYG SC SCH (19:55)
[2019-05-26] MEDS: ATORVASTATIN 80 MG TAB NGT SCH (21:01)
[2019-05-27] VITALS (13 sets, daily range): BP systolic 126–184; BP diastolic 79–116; PULSE 72–89; RESP 18–20
[2019-05-27] MEDS: NIFEdipine 10 MG CAP NGT SCH ×5 (00:33→19:55)
[2019-05-27] MEDS: INSULIN ASPART [NOVOLOG] 3 ML PEN SC SCH ×6 (00:49→20:20)
[2019-05-27] MEDS: traMADol 50 MG TAB NGT PRN (04:05)
[2019-05-27] MEDS: ARTIFICIAL TEARS 15 ML OPH BOTH EYES SCH ×3 (08:53→20:20)
[2019-05-27] MEDS: SPIRONOLACTONE 50 MG TAB NGT SCH ×2 (08:54→20:19)
[2019-05-27] MEDS: DOXAZOSIN 4 MG TAB NGT SCH ×2 (08:54→20:32)
[2019-05-27] MEDS: LISINOPRIL 20 MG TAB GTB SCH ×2 (08:54→20:19)
[2019-05-27] MEDS: FAMOTIDINE 20 MG TAB NGT SCH ×2 (08:55→20:47)
[2019-05-27] MEDS: METOPROLOL 100 MG TAB NGT SCH ×2 (08:56→20:19)
[2019-05-27] MEDS: ENOXAPARIN 100 MG/ML SYG SC SCH ×2 (08:57→20:30)
--- NOTE | 2019-05-27 11:13 | CONS ---
Assessment/Plan Assessment/Plan Assessment/Plan (Recall) 39 F c/ reported Hx of DM2, who presents for evaluation of multiple complaints, including GI Sx...and eventual ams, for which neurology is consulted. 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 The clinical picture was initially concerning for meningoencephalitis..CSF evaluation is inconsistent w/ infection...the erythrocytosis possibly due to a traumatic tap.. Head CT was notable for a left frontal hyperdensity, likely hemorrhagic t ransformation of an above referenced focus of acute ischemia is the context of severe hypertension.. CTA head and neck is negative for multifocal stenoses, which might otherwise suggests vasculitis, etc. TTE is unrevealing; SOFIA was deferred.. EEG was without epileptiform activity Ammonia wnl, HIV/RPR neg, ESR wnl Hypercoagulability panel is negative.. P: Repeat swallow eval sabi Aggressive PT/OT d/c restraints as soon as medically able Hold asa while on therapeutic anticoagulation... Continued BP control to goal normotension Continue to hold all sedating medications where possible Other management and supportive care per primary Will follow clinically Consultation Date/Type/Reason Admit Date/Time May 08, 2019 at 23:21 Type of Consult Neurology Reason for Consultation ams Requesting Provider: DAMIEN CHOUDHARY Date/Time of Note DATE: 05/27/19 TIME: 11:10 24 HR Interval Summary Free Text/Dictation s/p repeat MRI brain Exam/Review of Systems Exam Vitals Vital Signs Date Temp Pulse Resp B/P (MAP) Pulse Ox O2 O2 Flow FiO2 Time Delivery Rate 05/27/19 98.0 79 20 126/79 94 Room Air 09:59 (95) Intake and Output 05/26/19 05/26/19 05/27/19 1515:00 23:00 07:00 OutputOutput Total 900 ml 400 ml BalanceBalance -900 ml -400 ml Exam PE: Gen Appearance: No Apparent Distress HEENT: NG tube Cardiovascular: Regular rate Abdomen: Soft Extremities: Dry NE: The patient was alert and oriented to person and hospital. Language was normal. Fund of knowledge was adequate. Pupils were equal and reactive to light. There was no afferent pupillary defect. Visual ramsey were normal. Funduscopic examination was limited. Extra-ocular movements were full. Ptosis was absent. There was no nystagmus. Facial sensation was normal. Face was symmetric with normal strength. Hearing was intact. Palate movements were normal. Neck strength was normal. There was normal tongue bulk and speed of movement. Tone was normal. Muscle bulk was normal. I did not see fasciculations. Arms and legs were strong. Vibration sensation was normal. Temperature and pinprick sensation was normal. Rapid alternating movements were limited. There was dysmetria on the right.. There was no intention tremor. Gait was deferred due to bedrest. Arm and leg reflexes were symmetric. Skinner's sign was absent. Plantar responses were flexor. Results Result Diagram: 05/27/19 0718 05/27/19 0718 Results 24hrs Laboratory Tests Test 05/26/19 12:17 05/26/19 17:25 05/26/19 19:44 05/26/19 20:53 Bedside Glucose 151 169 152 134 Test 05/27/19 00:38 05/27/19 04:46 05/27/19 07:18 05/27/19 08:09 Bedside Glucose 160 157 163 White Blood Count 5.8 Red Blood Count 5.61 H Hemoglobin 15.7 Hematocrit 48.3 H Mean Corpuscular 86.1 Volume Mean Corpuscular 28.0 L Hemoglobin Mean Corpuscular 32.5 Hemoglobin Concent Red Cell 13.6 Distribution Width Platelet Count 316 Mean Platelet Volume 11.4 H Immature 0.300 Granulocytes % Neutrophils % 50.1 Lymphocytes % 34.8 Monocytes % 8.8 Eosinophils % 5.3 Basophils % 0.7 Nucleated Red Blood 0.0 Cells % Immature 0.020 Granulocytes # Neutrophils # 2.9 Lymphocytes # 2.0 Monocytes # 0.5 Eosinophils # 0.3 Basophils # 0.0 Nucleated Red Blood 0.0 Cells # Sodium Level 138 Potassium Level 4.4 Chloride Level 100 Carbon Dioxide Level 27 Anion Gap 11 Blood Urea Nitrogen 34 H Creatinine 1.09 H Est Glomerular 55 L Filtrat Rate mL/min Glucose Level 194 Calcium Level 9.7 Phosphorus Level 4.4 Magnesium Level 1.9 Medications Medication Current Medications IV Flush (NS 3 ml) 3 ml PER PROTOCOL IV ; Start 05/09/19 at 00:00 Ondansetron HCl (Zofran Inj) 4 mg Q6H PRN IV NAUSEA/VOMITING; Start 05/09/19 at 00:00 Docusate Sodium (Colace) 100 mg Q12H PRN PO .CONSTIPATION; Start 05/09/19 at 00:00 Magnesium Hydroxide (Milk Of Mag) 30 ml DAILY PRN PO .CONSTIPATION; Start 05/09/19 at 00:00 Nitroglycerin (Nitroglycerin (Sl Tab) 0.4 Mg) 1 tab Q5M PRN SL ANGINA; Start 05/09/19 at 00:00 Insulin Aspart (Novolog Insulin Pen) NOVOLOG *MODERATE* ALGORI... Q4 SC Last administered on 05/27/19at 08:13; Admin Dose 2 UNIT; Start 05/09/19 at 18:00 Miscellaneous Information 1 ea NOTE XX ; Start 05/09/19 at 17:00 Glucose (Glutose) 15 gm Q15M PRN PO DECREASED GLUCOSE; Start 05/09/19 at 17:00 Glucose (Glutose) 22.5 gm Q15M PRN PO DECREASED GLUCOSE; Start 05/09/19 at 17:00 Dextrose (D50w Syringe) 25 ml Q15M PRN IV DECREASED GLUCOSE; Start 05/09/19 at 17:00 Dextrose (D50w Syringe) 50 ml Q15M PRN IV DECREASED GLUCOSE; Start 05/09/19 at 17:00 Glucagon (Glucagen) 1 mg Q15M PRN IM DECREASED GLUCOSE; Start 05/09/19 at 17:00 Glucose (Glutose) 15 gm Q15M PRN BUCCAL DECREASED GLUCOSE; Start 05/09/19 at 17:00 Atorvastatin Calcium (Lipitor) 80 mg HS NGT Last administered on 05/26/19at 21:01; Admin Dose 80 MG; Start 05/11/19 at 21:00 Insulin Glargine (Lantus) 10 units DAILY@2000 SC Last administered on 05/26/19at 19:55; Admin Dose 10 UNITS; Start 05/11/19 at 20:00 IV Flush (NS 10 ml) 10 ml PRN PRN IV IV PROTOCOL; Start 05/13/19 at 14:00 Metoprolol Tartrate (Lopressor) 200 mg BID NGT Last administered on 05/27/19at 08:56; Admin Dose 200 MG; Start 05/14/19 at 09:15 Lisinopril (Zestril) 40 mg BID GTB Last administered on 05/27/19 08:54; Admin Dose 40 MG; Start 05/15/19 at 09:00 Tramadol HCl (Ultram) 50 mg Q6H PRN NGT MODERATE PAIN LEVEL 4-6 Last ad ministered on 05/27/19 04:05; Admin Dose 50 MG; Start 05/18/19 at 11:00 Acetaminophen (Tylenol Liquid) 650 mg Q6H PRN NGT .PAIN 1-3 OR TEMP Last administered on 05/26/19 21:25; Admin Dose 650 MG; Start 05/19/19 at 00:00 Famotidine (Pepcid) 20 mg Q12 NGT Last administered on 05/27/19 08:55; Admin Dose 20 MG; Start 05/18/19 at 21:00 Hydralazine HCl (Apresoline) 100 mg Q8 NGT Last administered on 05/27/19 05:11; Admin Dose 100 MG; Start 05/18/19 at 22:00 Spironolactone (Aldactone) 100 mg BID NGT Last administered on 05/27/19 08:54; Admin Dose 100 MG; Start 05/19/19 at 21:00 Labetalol HCl (Labetalol) 10 mg Q4H PRN IV sys bp > 160 Last administered on 05/23/19 06:24; Admin Dose 10 MG; Start 05/19/19 at 17:17 Eye Lubricant (Artificial Tears Oph) 1 drop TID BOTH EYES Last administered on 05/27/19 08:53; Admin Dose 1 DROP; Start 05/20/19 at 13:00 Lorazepam (Ativan) 1 mg Q8H PRN IV agitation Last administered on 05/26/19 23:11; Admin Dose 1 MG; Start 05/20/19 at 17:00 Doxazosin Mesylate (Cardura) 4 mg BID NGT Last administered on 05/27/19 08:54; Admin Dose 4 MG; Start 05/22/19 at 21:00 Nifedipine (Procardia) 20 mg Q6 NGT Last administered on 05/27/19 06:06; Admin Dose 20 MG; Start 05/23/19 at 12:00 Enoxaparin Sodium (Lovenox) 125 mg Q12 SC Last administered on 05/27/19 08:57; Admin Dose 125 MG; Start 05/24/19 at 21:00 JOSÉ TORO May 27, 2019 11:13
[2019-05-27] MEDS ORDERED: BARIUM SULFATE 135 ML (E-Z HD) PO ONE (11:49)
--- NOTE | 2019-05-27 14:47 | CONS ---
Assessment/Plan Assessment/Plan Problems: (1) Hypertension Status: Chronic Comment: Blood pressure control is fair on aggressive dosages of multiple antihypertensive medications. I have again reordered the MRI scan to look at the renal arteries, and the adrenal glands. That is still pending at this time. Qualifiers: Hypertension type: unspecified Qualified Codes: I10 - Essential (primary) hypertension (2) Grade II diastolic dysfunction Status: Chronic Comment: Control of pulse and blood pressure (3) Diabetes mellitus type 2 in obese Status: Chronic Comment: Adequate control (4) Hemorrhagic cerebrovascular accident (CVA) Onset Date: ~ 05/08/2019 Status: Acute Comment: As per neurology Consultation Date/Type/Reason Admit Date/Time May 08, 2019 at 23:21 Initial Consult Date 05/19/19 Type of Consult Endocrinology Reason for Consultation Accelerated hypertension with endorgan injury; rule out endocrine cause. Requesting Provider: DAMIEN CHOUDHARY Date/Time of Note DATE: 05/27/19 TIME: 14:45 24 HR Interval Summary Free Text/Dictation No appreciable changes Exam/Review of Systems Exam Vitals Vital Signs Date Temp Pulse Resp B/P (MAP) Pulse Ox O2 O2 Flow FiO2 Time Delivery Rate 05/27/19 98.0 78 20 156/94 97 Room Air 14:02 (114) Intake and Output 05/26/19 05/26/19 05/27/19 1515:00 23:00 07:00 OutputOutput Total 900 ml 400 ml BalanceBalance -900 ml -400 ml Constitutional: alert Respiratory: clear to auscultation, normal air movement Cardiovascular: regular rate and rhythm, nl pulses Gastrointestinal: soft, nl liver, spleen, non-tender, other (No bruit) Results Result Diagram: 05/27/19 0718 05/27/19 0718 Results 24hrs Laboratory Tests Test 05/26/19 17:25 05/26/19 19:44 05/26/19 20:53 05/27/19 00:38 Bedside Glucose 169 152 134 160 Test 05/27/19 04:46 05/27/19 07:18 05/27/19 08:09 05/27/19 12:10 Bedside Glucose 157 163 177 White Blood Count 5.8 Red Blood Count 5.61 H Hemoglobin 15.7 Hematocrit 48.3 H Mean Corpuscular 86.1 Volume Mean Corpuscular 28.0 L Hemoglobin Mean Corpuscular 32.5 Hemoglobin Concent Red Cell 13.6 Distribution Width Platelet Count 316 Mean Platelet 11.4 H Volume Immature 0.300 Granulocytes % Neutrophils % 50.1 Lymphocytes % 34.8 Monocytes % 8.8 Eosinophils % 5.3 Basophils % 0.7 Nucleated Red 0.0 Blood Cells % Immature 0.020 Granulocytes # Neutrophils # 2.9 Lymphocytes # 2.0 Monocytes # 0.5 Eosinophils # 0.3 Basophils # 0.0 Nucleated Red 0.0 Blood Cells # Sodium Level 138 Potassium Level 4.4 Chloride Level 100 Carbon Dioxide 27 Level Anion Gap 11 Blood Urea 34 H Nitrogen Creatinine 1.09 H Est Glomerular 55 L Filtrat Rate mL/min Glucose Level 194 Calcium Level 9.7 Phosphorus Level 4.4 Magnesium Level 1.9 Test 05/27/19 12:52 Lab Scanned Report REFERENCE LAB Medications Medication Current Medications IV Flush (NS 3 ml) 3 ml PER PROTOCOL IV ; Start 05/09/19 at 00:00 Ondansetron HCl (Zofran Inj) 4 mg Q6H PRN IV NAUSEA/VOMITING; Start 05/09/19 at 00:00 Docusate Sodium (Colace) 100 mg Q12H PRN PO .CONSTIPATION; Start 05/09/19 at 00:00 Magnesium Hydroxide (Milk Of Mag) 30 ml DAILY PRN PO .CONSTIPATION; Start 05/09/19 at 00:00 Nitroglycerin (Nitroglycerin (Sl Tab) 0.4 Mg) 1 tab Q5M PRN SL ANGINA; Start 05/09/19 at 00:00 Insulin Aspart (Novolog Insulin Pen) NOVOLOG *MODERATE* ALGORI... Q4 SC Last administered on 05/27/19at 12:17; Admin Dose 2 UNIT; Start 05/09/19 at 18:00 Miscellaneous Information 1 ea NOTE XX ; Start 05/09/19 at 17:00 Glucose (Glutose) 15 gm Q15M PRN PO DECREASED GLUCOSE; Start 05/09/19 at 17:00 Glucose (Glutose) 22.5 gm Q15M PRN PO DECREASED GLUCOSE; Start 05/09/19 at 17:00 Dextrose (D50w Syringe) 25 ml Q15M PRN IV DECREASED GLUCOSE; Start 05/09/19 at 17:00 Dextrose (D50w Syringe) 50 ml Q15M PRN IV DECREASED GLUCOSE; Start 05/09/19 at 17:00 Glucagon (Glucagen) 1 mg Q15M PRN IM DECREASED GLUCOSE; Start 05/09/19 at 17:00 Glucose (Glutose) 15 gm Q15M PRN BUCCAL DECREASED GLUCOSE; Start 05/09/19 at 17:00 Atorvastatin Calcium (Lipitor) 80 mg HS NGT Last administered on 05/26/19 21:01; Admin Dose 80 MG; Start 05/11/19 at 21:00 Insulin Glargine (Lantus) 10 units DAILY@2000 SC Last administered on 05/26/19 19:55; Admin Dose 10 UNITS; Start 05/11/19 at 20:00 IV Flush (NS 10 ml) 10 ml PRN PRN IV IV PROTOCOL; Start 05/13/19 at 14:00 Metoprolol Tartrate (Lopressor) 200 mg BID NGT Last administered on 05/27/19 08:56; Admin Dose 200 MG; Start 05/14/19 at 09:15 Lisinopril (Zestril) 40 mg BID GTB Last administered on 05/27/19 08:54; Admin Dose 40 MG; Start 05/15/19 at 09:00 Tramadol HCl (Ultram) 50 mg Q6H PRN NGT MODERATE PAIN LEVEL 4-6 Last administered on 05/27/19 04:05; Admin Dose 50 MG; Start 05/18/19 at 11:00 Acetaminophen (Tylenol Liquid) 650 mg Q6H PRN NGT .PAIN 1-3 OR TEMP Last administered on 05/26/19 21:25; Admin Dose 650 MG; Start 05/19/19 at 00:00 Famotidine (Pepcid) 20 mg Q12 NGT Last administered on 05/27/19 08:55; Admin Dose 20 MG; Start 05/18/19 at 21:00 Hydralazine HCl (Apresoline) 100 mg Q8 NGT Last administered on 05/27/19 05:11; Admin Dose 100 MG; Start 05/18/19 at 22:00 Spironolactone (Aldactone) 100 mg BID NGT Last administered on 05/27/19 08:54; Admin Dose 100 MG; Start 05/19/19 at 21:00 Labetalol HCl (Labetalol) 10 mg Q4H PRN IV sys bp > 160 Last administered on 05/23/19 06:24; Admin Dose 10 MG; Start 05/19/19 at 17:17 Eye Lubricant (Artificial Tears Oph) 1 drop TID BOTH EYES Last administered on 05/27/19 08:53; Admin Dose 1 DROP; Start 05/20/19 at 13:00 Lorazepam (Ativan) 1 mg Q8H PRN IV agitation Last administered on 05/26/19 23:11; Admin Dose 1 MG; Start 05/20/19 at 17:00 Doxazosin Mesylate (Cardura) 4 mg BID NGT Last administered on 05/27/19 08:54; Admin Dose 4 MG; Start 05/22/19 at 21:00 Nifedipine (Procardia) 20 mg Q6 NGT Last administered on 05/27/19 06:06; Admin Dose 20 MG; Start 05/23/19 at 12:00 Enoxaparin Sodium (Lovenox) 125 mg Q12 SC Last administered on 05/27/19 08:57; Admin Dose 125 MG; Start 05/24/19 at 21:00 VALENTINO MAYER MD May 27, 2019 14:47
--- NOTE | 2019-05-27 15:30 | PN ---
Date/Time of Note Date/Time of Note DATE: 05/27/19 TIME: 15:28 Assessment/Plan VTE Prophylaxis Risk score (from Nsg)>0 risk: 9 SCD applied (from Ns): No SCD contraindicated: other (no) Pharmacological prophylaxis: LMWH Lines/Catheters IV Catheter Type (from Nrsg): Saline Lock Urinary Cath still in place: Yes Reason Cath still needed: other (indicate) (not needed) Assessment/Plan Assessment/Plan 39-year-old morbidly obese woman with history of HTN who comes in with decreased p.o. intake, lethargy preceded by delirium and nausea and vomiting. 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 #Encephalopathy-slowly improving as patient answers slightly more questions now in Nepali, MRI brain showed several new and old infarcts concerning for central embolic source. There there apparently was small frontal bleed which may be hemorrhagic infarct - TTE done without evidence of vegetations or thrombus - HIV negative - No concern for infectious meningitis based on LP, patient presently off antibiotics. Repeat head CT on May 20 showed some improvement in the frontal bleed. - Neurology Dr. Laurent following - Limit sedation as much as possible, continue PT and OT as much as possible - Plan to repeat MRI brain for surveillance. #Upper extremity thrombosis - L upper superficial vein thrombosis involving cephalic vein. - Will start therapeutic lovenox. Discontinue aspirin. #GARDENIA - Likely due to iatrogenic vancomycin toxicity-resolved #Respiratory failure- Intubated earlier this admission due to poor mental status, but self extubated on May 15, 2019. - Currently protecting airway # Hypertension: Still on Cardene drip, adjustments made to the dosages and new p.o. regimen added a few days ago. Appreciate endocrinology consult, patient currently being worked up for other possible etiologies of secondary hypertensio n such as hyperaldosteronism, also considering pheochromocytoma and renal artery stenosis (although these are less likely). - Continue metoprolol (maxed), lisinopril (maxed), hydralazine (maxed), spi ronolactone, nifedipene (increasing dose) - Follow further recommendations from endocrinology team to further investigate any potential hyperaldosteronism source/etiology of her hypertension. # DVT prophylaxis: SCDs Dispo: Continue PT, OT, and speech therapy. Just passed swallow eval today. Result Diagram: 05/27/19 0718 05/27/19 0718 Subjective 24 Hr Interval Summary Free Text/Dictation No acute overnight events. Passed swallow eval. NG tube out. Exam/Review of Systems Exam Vitals Vital Signs Date Temp Pulse Resp B/P (MAP) Pulse Ox O2 O2 Flow FiO2 Time Delivery Rate 05/27/19 98.0 78 20 156/94 97 Room Air 14:02 (114) Intake and Output 05/26/19 05/26/19 05/27/19 1515:00 23:00 07:00 OutputOutput Total 900 ml 400 ml BalanceBalance -900 ml -400 ml Exam Gen: Morbidly obese woman lying supine in bed, sleepy Eyes: Slightly injected conjunctivae. Normal pupils ENT: Normal External Ears, Nose and Mouth. Moist mucous membranes. Neck: No meningismus. No lymphadenopathy. Resp: Clear to auscultation bilaterally. Cardio: Regular rate and rhythm, no murmurs appreciated. Abd: Soft, obese, nondistended, normal bowel sounds Ext: No lower extremity edema bilaterally Results Results 24hrs Laboratory Tests Test 05/26/19 17:25 05/26/19 19:44 05/26/19 20:53 05/27/19 00:38 Bedside Glucose 169 152 134 160 Test 05/27/19 04:46 05/27/19 07:18 05/27/19 08:09 05/27/19 12:10 Bedside Glucose 157 163 177 White Blood Count 5.8 Red Blood Count 5.61 H Hemoglobin 15.7 Hematocrit 48.3 H Mean Corpuscular 86.1 Volume Mean Corpuscular 28.0 L Hemoglobin Mean Corpuscular 32.5 Hemoglobin Concent Red Cell 13.6 Distribution Width Platelet Count 316 Mean Platelet 11.4 H Volume Immature 0.300 Granulocytes % Neutrophils % 50.1 Lymphocytes % 34.8 Monocytes % 8.8 Eosinophils % 5.3 Basophils % 0.7 Nucleated Red 0.0 Blood Cells % Immature 0.020 Granulocytes # Neutrophils # 2.9 Lymphocytes # 2.0 Monocytes # 0.5 Eosinophils # 0.3 Basophils # 0.0 Nucleated Red 0.0 Blood Cells # Sodium Level 138 Potassium Level 4.4 Chloride Level 100 Carbon Dioxide 27 Level Anion Gap 11 Blood Urea 34 H Nitrogen Creatinine 1.09 H Est Glomerular 55 L Filtrat Rate mL/min Glucose Level 194 Calcium Level 9.7 Phosphorus Level 4.4 Magnesium Level 1.9 Test 05/27/19 12:52 Lab Scanned Report REFERENCE LAB Medications Medication Current Medications IV Flush (NS 3 ml) 3 ml PER PROTOCOL IV ; Start 05/09/19 at 00:00 Ondansetron HCl (Zofran Inj) 4 mg Q6H PRN IV NAUSEA/VOMITING; Start 05/09/19 at 00:00 Docusate Sodium (Colace) 100 mg Q12H PRN PO .CONSTIPATION; Start 05/09/19 at 00:00 Magnesium Hydroxide (Milk Of Mag) 30 ml DAILY PRN PO .CONSTIPATION; Start 05/09/19 at 00:00 Nitroglycerin (Nitroglycerin (Sl Tab) 0.4 Mg) 1 tab Q5M PRN SL ANGINA; Start 05/09/19 at 00:00 Insulin Aspart (Novolog Insulin Pen) NOVOLOG *MODERATE* ALGORI... Q4 SC Last administered on 05/27/19at 12:17; Admin Dose 2 UNIT; Start 05/09/19 at 18:00 Miscellaneous Information 1 ea NOTE XX ; Start 05/09/19 at 17:00 Glucose (Glutose) 15 gm Q15M PRN PO DECREASED GLUCOSE; Start 05/09/19 at 17:00 Glucose (Glutose) 22.5 gm Q15M PRN PO DECREASED GLUCOSE; Start 05/09/19 at 17:00 Dextrose (D50w Syringe) 25 ml Q15M PRN IV DECREASED GLUCOSE; Start 05/09/19 at 17:00 Dextrose (D50w Syringe) 50 ml Q15M PRN IV DECREASED GLUCOSE; Start 05/09/19 at 17:00 Glucagon (Glucagen) 1 mg Q15M PRN IM DECREASED GLUCOSE; Start 05/09/19 at 17:00 Glucose (Glutose) 15 gm Q15M PRN BUCCAL DECREASED GLUCOSE; Start 05/09/19 at 17:00 Atorvastatin Calcium (Lipitor) 80 mg HS NGT Last administered on 05/26/19at 21:01; Admin Dose 80 MG; Start 05/11/19 at 21:00 Insulin Glargine (Lantus) 10 units DAILY@2000 SC Last administered on 05/26/19at 19:55; Admin Dose 10 UNITS; Start 05/11/19 at 20:00 IV Flush (NS 10 ml) 10 ml PRN PRN IV IV PROTOCOL; Start 05/13/19 at 14:00 Metoprolol Tartrate (Lopressor) 200 mg BID NGT Last administered on 05/27/19 08:56; Admin Dose 200 MG; Start 05/14/19 at 09:15 Lisinopril (Zestril) 40 mg BID GTB Last administered on 05/27/19 08:54; Admin Dose 40 MG; Start 05/15/19 at 09:00 Tramadol HCl (Ultram) 50 mg Q6H PRN NGT MODERATE PAIN LEVEL 4-6 Last administered on 05/27/19 04:05; Admin Dose 50 MG; Start 05/18/19 at 11:00 Acetaminophen (Tylenol Liquid) 650 mg Q6H PRN NGT .PAIN 1-3 OR TEMP Last administered on 05/26/19 21:25; Admin Dose 650 MG; Start 05/19/19 at 00:00 Famotidine (Pepcid) 20 mg Q12 NGT Last administered on 05/27/19 08:55; Admin Dose 20 MG; Start 05/18/19 at 21:00 Hydralazine HCl (Apresoline) 100 mg Q8 NGT Last administered on 05/27/19 05:11; Admin Dose 100 MG; Start 05/18/19 at 22:00 Spironolactone (Aldactone) 100 mg BID NGT Last administered on 05/27/19 08:54; Admin Dose 100 MG; Start 05/19/19 at 21:00 Labetalol HCl (Labetalol) 10 mg Q4H PRN IV sys bp > 160 Last administered on 05/23/19 06:24; Admin Dose 10 MG; Start 05/19/19 at 17:17 Eye Lubricant (Artificial Tears Oph) 1 drop TID BOTH EYES Last administered on 05/27/19 08:53; Admin Dose 1 DROP; Start 05/20/19 at 13:00 Lorazepam (Ativan) 1 mg Q8H PRN IV agitation Last administered on 05/26/19 23:11; Admin Dose 1 MG; Start 05/20/19 at 17:00 Nifedipine (Procardia) 20 mg Q6 NGT Last administered on 05/27/19 06:06; Admin Dose 20 MG; Start 05/23/19 at 12:00 Enoxaparin Sodium (Lovenox) 125 mg Q12 SC Last administered on 05/27/19at 08:57; Admin Dose 125 MG; Start 05/24/19 at 21:00 Doxazosin Mesylate (Cardura) 8 mg BID NGT ; Start 05/27/19 at 21:00 DAVID QUIÑONEZ MD May 27, 2019 15:30
[2019-05-27] MEDS: ATORVASTATIN 80 MG TAB NGT SCH (20:19)
[2019-05-27] MEDS: INSULIN GLARGINE [LANTus] (100 UNITS/ML) SYG SC SCH (20:39)
[2019-05-28] MEDS: NIFEdipine 10 MG CAP NGT SCH ×4 (01:33→18:20)
[2019-05-28] MEDS: ACCU-CHEK XX SCH (01:56)
[2019-05-28 03:43] VITALS: BP 113/65; PULSE 71; RESP 20
[2019-05-28 07:30] VITALS: BP 131/71; PULSE 80; RESP 20
[2019-05-28] MEDS: INSULIN ASPART [NOVOLOG] 3 ML PEN SC SCH ×4 (07:55→21:00)
--- NOTE | 2019-05-28 09:25 | CONS ---
Assessment/Plan Assessment/Plan Assessment/Plan (Recall) 39 F c/ reported Hx of DM2, who presents for evaluation of multiple complaints, including GI Sx...and eventual ams, for which neurology is consulted. 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 The clinical picture was initially concerning for meningoencephalitis..CSF evaluation is inconsistent w/ infection...the erythrocytosis possibly due to a traumatic tap.. Head CT was notable for a left frontal hyperdensity, likely hemorrhagic t ransformation of an above referenced focus of acute ischemia is the context of severe hypertension.. CTA head and neck is negative for multifocal stenoses, which might otherwise suggests vasculitis, etc. TTE is unrevealing; SOFIA was deferred.. EEG was without epileptiform activity Ammonia wnl, HIV/RPR neg, ESR wnl Hypercoagulability panel is negative.. P: Continued PT/OT/ST as able Hold asa while on therapeutic anticoagulation... Continued BP control to goal normotension Continue to hold all sedating medications where possible Other management and supportive care per primary Will follow clinically Consultation Date/Type/Reason Admit Date/Time May 08, 2019 at 23:21 Type of Consult Neurology Reason for Consultation ams Requesting Provider: DAMIEN CHOUDHARY Date/Time of Note DATE: 05/28/19 TIME: 09:25 24 HR Interval Summary Free Text/Dictation passed swallow eval Exam/Review of Systems Exam Vitals Vital Signs Date Temp Pulse Resp B/P (MAP) Pulse Ox O2 O2 Flow FiO2 Time Delivery Rate 05/28/19 98.0 80 20 131/71 96 Room Air 07:30 (91) 05/28/19 21 00:11 Intake and Output 05/27/19 05/27/19 05/28/19 1515:00 23:00 07:00 IntakeIntake Total 150 ml 450 ml OutputOutput Total 425 ml BalanceBalance -275 ml 450 ml Results Result Diagram: 05/28/19 0705 05/28/19 0705 Results 24hrs Laboratory Tests Test 05/27/19 12:10 05/27/19 12:52 05/27/19 17:52 05/27/19 20:15 Bedside Glucose 177 139 129 Lab Scanned Report REFERENCE LAB Test 05/28/19 01:52 05/28/19 07:05 Bedside Glucose 150 White Blood Count 4.8 Red Blood Count 5.80 H Hemoglobin 16.1 H Hematocrit 50.4 H Mean Corpuscular 86.9 Volume Mean Corpuscular 27.8 L Hemoglobin Mean Corpuscular 31.9 L Hemoglobin Concent Red Cell 13.6 Distribution Width Platelet Count 316 Mean Platelet 11.6 H Volume Immature 0.400 Granulocytes % Neutrophils % 40.1 Lymphocytes % 43.9 Monocytes % 10.0 Eosinophils % 4.8 Basophils % 0.8 Nucleated Red 0.0 Blood Cells % Immature 0.020 Granulocytes # Neutrophils # 1.9 Lymphocytes # 2.1 Monocytes # 0.5 Eosinophils # 0.2 Basophils # 0.0 Nucleated Red 0.0 Blood Cells # Sodium Level 138 Potassium Level 4.5 Chloride Level 100 Carbon Dioxide 25 Level Anion Gap 13 Blood Urea 31 H Nitrogen Creatinine 0.99 Est Glomerular > 60 Filtrat Rate mL/min Glucose Level 140 # Calcium Level 10.1 Medications Medication Current Medications IV Flush (NS 3 ml) 3 ml PER PROTOCOL IV ; Start 05/09/19 at 00:00 Ondansetron HCl (Zofran Inj) 4 mg Q6H PRN IV NAUSEA/VOMITING; Start 05/09/19 at 00:00 Docusate Sodium (Colace) 100 mg Q12H PRN PO .CONSTIPATION; Start 05/09/19 at 00:00 Magnesium Hydroxide (Milk Of Mag) 30 ml DAILY PRN PO .CONSTIPATION; Start 05/09/19 at 00:00 Nitroglycerin (Nitroglycerin (Sl Tab) 0.4 Mg) 1 tab Q5M PRN SL ANGINA; Start 05/09/19 at 00:00 Miscellaneous Information 1 ea NOTE XX ; Start 05/09/19 at 17:00 Glucose (Glutose) 15 gm Q15M PRN PO DECREASED GLUCOSE; Start 05/09/19 at 17:00 Glucose (Glutose) 22.5 gm Q15M PRN PO DECREASED GLUCOSE; Start 05/09/19 at 17 :00 Dextrose (D50w Syringe) 25 ml Q15M PRN IV DECREASED GLUCOSE; Start 05/09/19 at 17:00 Dextrose (D50w Syringe) 50 ml Q15M PRN IV DECREASED GLUCOSE; Start 05/09/19 at 17:00 Glucagon (Glucagen) 1 mg Q15M PRN IM DECREASED GLUCOSE; Start 05/09/19 at 17:00 Glucose (Glutose) 15 gm Q15M PRN BUCCAL DECREASED GLUCOSE; Start 05/09/19 at 17:00 Atorvastatin Calcium (Lipitor) 80 mg HS NGT Last administered on 05/27/19 20:19; Admin Dose 80 MG; Start 05/11/19 at 21:00 Insulin Glargine (Lantus) 10 units DAILY@2000 SC Last administered on 05/27/19 20:39; Admin Dose 10 UNITS; Start 05/11/19 at 20:00 IV Flush (NS 10 ml) 10 ml PRN PRN IV IV PROTOCOL; Start 05/13/19 at 14:00 Metoprolol Tartrate (Lopressor) 200 mg BID NGT Last administered on 05/27/19 20:19; Admin Dose 200 MG; Start 05/14/19 at 09:15 Lisinopril (Zestril) 40 mg BID GTB Last administered on 05/27/19 20:19; Admin Dose 40 MG; Start 05/15/19 at 09:00 Tramadol HCl (Ultram) 50 mg Q6H PRN NGT MODERATE PAIN LEVEL 4-6 Last administered on 05/27/19 04:05; Admin Dose 50 MG; Start 05/18/19 at 11:00 Acetaminophen (Tylenol Liquid) 650 mg Q6H PRN NGT .PAIN 1-3 OR TEMP Last administered on 05/26/19 21:25; Admin Dose 650 MG; Start 05/19/19 at 00:00 Famotidine (Pepcid) 20 mg Q12 NGT Last administered on 05/27/19 20:47; Admin Dose 20 MG; Start 05/18/19 at 21:00 Hydralazine HCl (Apresoline) 100 mg Q8 NGT Last administered on 05/28/19 05:25; Admin Dose 100 MG; Start 05/18/19 at 22:00 Spironolactone (Aldactone) 100 mg BID NGT Last administered on 05/27/19 20:19; Admin Dose 100 MG; Start 05/19/19 at 21:00 Labetalol HCl (Labetalol) 10 mg Q4H PRN IV sys bp > 160 Last administered on 05/23/19 06:24; Admin Dose 10 MG; Start 05/19/19 at 17:17 Eye Lubricant (Artificial Tears Oph) 1 drop TID BOTH EYES Last administered on 05/27/19at 20:20; Admin Dose 1 DROP; Start 05/20/19 at 13:00 Nifedipine (Procardia) 20 mg Q6 NGT Last administered on 05/28/19 05:25; Admin Dose 20 MG; Start 05/23/19 at 12:00 Enoxaparin Sodium (Lovenox) 125 mg Q12 SC Last administered on 05/27/19at 20:30; Admin Dose 125 MG; Start 05/24/19 at 21:00 Doxazosin Mesylate (Cardura) 8 mg BID NGT Last administered on 05/27/19at 20:32; Admin Dose 8 MG; Start 05/27/19 at 21:00 Diagnostic Test (Pha) (Accu-Chek) 1 ea 02 XX Last administered on 05/28/19at 01:56; Admin Dose 1 EA; Start 05/28/19 at 02:00 Insulin Aspart (Novolog Insulin Pen) NOVOLOG *MODERATE* ALGORITHM WITH MEALS BEDTIME SC ; Start 05/27/19 at 21:00 JOSÉ TROO May 28, 2019 09:25
[2019-05-28] MEDS: ARTIFICIAL TEARS 15 ML OPH BOTH EYES SCH ×3 (10:10→23:09)
[2019-05-28] MEDS: DOXAZOSIN 4 MG TAB NGT SCH ×2 (10:11→21:03)
[2019-05-28] MEDS: FAMOTIDINE 20 MG TAB NGT SCH ×2 (10:12→23:08)
[2019-05-28] MEDS: METOPROLOL 100 MG TAB NGT SCH ×2 (10:12→21:02)
[2019-05-28] MEDS: LISINOPRIL 20 MG TAB GTB SCH ×2 (10:12→21:02)
[2019-05-28] MEDS: SPIRONOLACTONE 50 MG TAB NGT SCH ×2 (10:18→20:56)
[2019-05-28] MEDS: ENOXAPARIN 100 MG/ML SYG SC SCH ×2 (10:26→21:26)
[2019-05-28 11:24] VITALS: BP 161/92; PULSE 71; RESP 20
[2019-05-28 12:10] VITALS: BP 136/80; PULSE 68
--- NOTE | 2019-05-28 14:50 | CONS ---
Consult Date/Type/Reason Admit Date/Time May 08, 2019 at 23:21 Initial Consult Date 05/10/19 Type of Consultation: Pulm Requesting Provider: DAMIEN CHOUDHARY Date/Time of Note DATE: 05/28/19 TIME: 14:48 Subjective Overall improved. No events noted. Objective Vitals Vital Signs Date Temp Pulse Resp B/P (MAP) Pulse Ox O2 O2 Flow FiO2 Time Delivery Rate 05/28/19 68 136/80 12:10 (98) 05/28/19 98.0 20 91 Room Air 11:24 05/28/19 21 00:11 Intake and Output 05/27/19 05/27/19 05/28/19 1515:00 23:00 07:00 IntakeIntake Total 150 ml 450 ml OutputOutput Total 425 ml BalanceBalance -275 ml 450 ml Exam HEENT: Neck supple; no JVD; no LAD CVS: RRR, S1 and S2 CHEST: Clear ABD: Soft, NT, + BS EXT: No c/c/e Results/Medications Result Diagram: 05/28/19 0705/28/19 0705 Results 24 hrs Laboratory Tests Test 05/27/19 17:52 05/27/19 20:15 05/28/19 01:52 05/28/19 07:05 Bedside Glucose 139 129 150 White Blood Count 4.8 Red Blood Count 5.80 H Hemoglobin 16.1 H Hematocrit 50.4 H Mean Corpuscular 86.9 Volume Mean Corpuscular 27.8 L Hemoglobin Mean Corpuscular 31.9 L Hemoglobin Concent Red Cell 13.6 Distribution Width Platelet Count 316 Mean Platelet Volume 11.6 H Immature 0.400 Granulocytes % Neutrophils % 40.1 Lymphocytes % 43.9 Monocytes % 10.0 Eosinophils % 4.8 Basophils % 0.8 Nucleated Red Blood 0.0 Cells % Immature 0.020 Granulocytes # Neutrophils # 1.9 Lymphocytes # 2.1 Monocytes # 0.5 Eosinophils # 0.2 Basophils # 0.0 Nucleated Red Blood 0.0 Cells # Sodium Level 138 Potassium Level 4.5 Chloride Level 100 Carbon Dioxide Level 25 Anion Gap 13 Blood Urea Nitrogen 31 H Creatinine 0.99 Est Glomerular > 60 Filtrat Rate mL/min Glucose Level 140 # Calcium Level 10.1 Test 05/28/19 10:06 05/28/19 12:12 Bedside Glucose 129 128 Home Meds Reported Medications Lisinopril* (Lisinopril*) 20 Mg Tablet, 20 MG PO BID, #30 TAB 05/09/19 Hydralazine Hcl* (Hydralazine Hcl*) 100 Mg Tablet, 100 MG PO Q8, #90 TAB 05/09/19 Glimepiride* (Glimepiride*) 2 Mg Tablet, 2 MG PO WITH BREAKFAST, TAB 05/09/19 Metformin Hcl* (Metformin Hcl*) 1,000 Mg Tablet, 1000 MG PO WITH BREAKFAST DINNE, #60 TAB 05/09/19 Famotidine* (Famotidine*) 20 Mg Tablet, 20 MG PO BID, #60 TAB 05/09/19 Medications Current Medications IV Flush (NS 3 ml) 3 ml PER PROTOCOL IV ; Start 05/09/19 at 00:00 Ondansetron HCl (Zofran Inj) 4 mg Q6H PRN IV NAUSEA/VOMITING; Start 05/09/19 at 00:00 Docusate Sodium (Colace) 100 mg Q12H PRN PO .CONSTIPATION; Start 05/09/19 at 00:00 Magnesium Hydroxide (Milk Of Mag) 30 ml DAILY PRN PO .CONSTIPATION; Start 05/09/19 at 00:00 Nitroglycerin (Nitroglycerin (Sl Tab) 0.4 Mg) 1 tab Q5M PRN SL ANGINA; Start 05/09/19 at 00:00 Miscellaneous Information 1 ea NOTE XX ; Start 05/09/19 at 17:00 Glucose (Glutose) 15 gm Q15M PRN PO DECREASED GLUCOSE; Start 05/09/19 at 17:00 Glucose (Glutose) 22.5 gm Q15M PRN PO DECREASED GLUCOSE; Start 05/09/19 at 17:00 Dextrose (D50w Syringe) 25 ml Q15M PRN IV DECREASED GLUCOSE; Start 05/09/19 at 17:00 Dextrose (D50w Syringe) 50 ml Q15M PRN IV DECREASED GLUCOSE; Start 05/09/19 at 17:00 Glucagon (Glucagen) 1 mg Q15M PRN IM DECREASED GLUCOSE; Start 05/09/19 at 17:00 Glucose (Glutose) 15 gm Q15M PRN BUCCAL DECREASED GLUCOSE; Start 05/09/19 at 17:00 Atorvastatin Calcium (Lipitor) 80 mg HS NGT Last administered on 05/27/19 20:19; Admin Dose 80 MG; Start 05/11/19 at 21:00 Insulin Glargine (Lantus) 10 units DAILY@2000 SC Last administered on 05/27/19 20:39; Admin Dose 10 UNITS; Start 05/11/19 at 20:00 IV Flush (NS 10 ml) 10 ml PRN PRN IV IV PROTOCOL; Start 05/13/19 at 14:00 Metoprolol Tartrate (Lopressor) 200 mg BID NGT Last administered on 05/28/19 10:12; Admin Dose 200 MG; Start 05/14/19 at 09:15 Lisinopril (Zestril) 40 mg BID GTB Last administered on 05/28/19 10:12; Admin Dose 40 MG; Start 05/15/19 at 09:00 Tramadol HCl (Ultram) 50 mg Q6H PRN NGT MODERATE PAIN LEVEL 4-6 Last administered on 05/27/19 04:05; Admin Dose 50 MG; Start 05/18/19 at 11:00 Acetaminophen (Tylenol Liquid) 650 mg Q6H PRN NGT .PAIN 1-3 OR TEMP Last administered on 05/26/19 21:25; Admin Dose 650 MG; Start 05/19/19 at 00:00 Famotidine (Pepcid) 20 mg Q12 NGT Last administered on 05/28/19 10:12; Admin Dose 20 MG; Start 05/18/19 at 21:00 Hydralazine HCl (Apresoline) 100 mg Q8 NGT Last administered on 05/28/19 05:25; Admin Dose 100 MG; Start 05/18/19 at 22:00 Spironolactone (Aldactone) 100 mg BID NGT Last administered on 05/28/19 10:18; Admin Dose 100 MG; Start 05/19/19 at 21:00 Labetalol HCl (Labetalol) 10 mg Q4H PRN IV sys bp > 160 Last administered on 05/23/19 06:24; Admin Dose 10 MG; Start 05/19/19 at 17:17 Eye Lubricant (Artificial Tears Oph) 1 drop TID BOTH EYES Last administered on 05/28/19 12:14; Admin Dose 1 DROP; Start 05/20/19 at 13:00 Nifedipine (Procardia) 20 mg Q6 NGT Last administered on 05/28/19at 05:25; Admin Dose 20 MG; Start 05/23/19 at 12:00 Enoxaparin Sodium (Lovenox) 125 mg Q12 SC Last administered on 05/28/19at 10:26; Admin Dose 125 MG; Start 05/24/19 at 21:00 Doxazosin Mesylate (Cardura) 8 mg BID NGT Last administered on 05/28/19at 10:11; Admin Dose 8 MG; Start 05/27/19 at 21:00 Diagnostic Test (Pha) (Accu-Chek) 1 ea 02 XX Last administered on 05/28/19at 01:56; Admin Dose 1 EA; Start 05/28/19 at 02:00 Insulin Aspart (Novolog Insulin Pen) NOVOLOG *MODERATE* ALGORITHM WITH MEALS BEDTIME SC ; Start 05/27/19 at 21:00 Assessment/Plan Assessment/Plan (Daily) IMP: 1. 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 A meningoencephalitis appears less likely. Overall improving 2. s/p Resp Failure 3. s/p [place] 4. HTN 5. UE VTE RECS: 1. As per Neuro 2. Aspiration precautions ILANA CHOU MD May 28, 2019 14:50
[2019-05-28 15:07] VITALS: BP 133/85; PULSE 68; RESP 20
--- NOTE | 2019-05-28 15:11 | CONS ---
Assessment/Plan Assessment/Plan Problems: (1) Hypertension Status: Chronic Comment: MRI still pending to determine if VEL. Urine for 24 hour fractionated catecholamines still pending. Otherwise good BP control at this time. Qualifiers: Hypertension type: unspecified Qualified Codes: I10 - Essential (primary) hypertension (2) Diabetes mellitus type 2 in obese Status: Chronic Comment: good control Consultation Date/Type/Reason Admit Date/Time May 08, 2019 at 23:21 Initial Consult Date 05/19/19 Type of Consult Endocrine Reason for Consultation r/o secondary causes of hypertension. Requesting Provider: DAMIEN CHOUDHARY Date/Time of Note DATE: 05/28/19 TIME: 15:09 Exam/Review of Systems Exam Vitals Vital Signs Date Temp Pulse Resp B/P (MAP) Pulse Ox O2 O2 Flow FiO2 Time Delivery Rate 05/28/19 97.7 68 20 133/85 97 Room Air 15:07 (101) 05/28/19 21 00:11 Intake and Output 05/27/19 05/27/19 05/28/19 1515:00 23:00 07:00 IntakeIntake Total 150 ml 450 ml OutputOutput Total 425 ml BalanceBalance -275 ml 450 ml Exam deferred as patient is asleep Results Result Diagram: 05/28/19 0705 05/28/19 0705 Results 24hrs Laboratory Tests Test 05/27/19 17:52 05/27/19 20:15 05/28/19 01:52 05/28/19 07:05 Bedside Glucose 139 129 150 White Blood Count 4.8 Red Blood Count 5.80 H Hemoglobin 16.1 H Hematocrit 50.4 H Mean Corpuscular 86.9 Volume Mean Corpuscular 27.8 L Hemoglobin Mean Corpuscular 31.9 L Hemoglobin Concent Red Cell 13.6 Distribution Width Platelet Count 316 Mean Platelet Volume 11.6 H Immature 0.400 Granulocytes % Neutrophils % 40.1 Lymphocytes % 43.9 Monocytes % 10.0 Eosinophils % 4.8 Basophils % 0.8 Nucleated Red Blood 0.0 Cells % Immature 0.020 Granulocytes # Neutrophils # 1.9 Lymphocytes # 2.1 Monocytes # 0.5 Eosinophils # 0.2 Basophils # 0.0 Nucleated Red Blood 0.0 Cells # Sodium Level 138 Potassium Level 4.5 Chloride Level 100 Carbon Dioxide Level 25 Anion Gap 13 Blood Urea Nitrogen 31 H Creatinine 0.99 Est Glomerular > 60 Filtrat Rate mL/min Glucose Level 140 # Calcium Level 10.1 Test 05/28/19 10:06 05/28/19 12:12 Bedside Glucose 129 128 Medications Medication Current Medications IV Flush (NS 3 ml) 3 ml PER PROTOCOL IV ; Start 05/09/19 at 00:00 Ondansetron HCl (Zofran Inj) 4 mg Q6H PRN IV NAUSEA/VOMITING; Start 05/09/19 at 00:00 Docusate Sodium (Colace) 100 mg Q12H PRN PO .CONSTIPATION; Start 05/09/19 at 00:00 Magnesium Hydroxide (Milk Of Mag) 30 ml DAILY PRN PO .CONSTIPATION; Start 05/09/19 at 00:00 Nitroglycerin (Nitroglycerin (Sl Tab) 0.4 Mg) 1 tab Q5M PRN SL ANGINA; Start 05/09/19 at 00:00 Miscellaneous Information 1 ea NOTE XX ; Start 05/09/19 at 17:00 Glucose (Glutose) 15 gm Q15M PRN PO DECREASED GLUCOSE; Start 05/09/19 at 17:00 Glucose (Glutose) 22.5 gm Q15M PRN PO DECREASED GLUCOSE; Start 05/09/19 at 17:00 Dextrose (D50w Syringe) 25 ml Q15M PRN IV DECREASED GLUCOSE; Start 05/09/19 at 17:00 Dextrose (D50w Syringe) 50 ml Q15M PRN IV DECREASED GLUCOSE; Start 05/09/19 at 17:00 Glucagon (Glucagen) 1 mg Q15M PRN IM DECREASED GLUCOSE; Start 05/09/19 at 17:00 Glucose (Glutose) 15 gm Q15M PRN BUCCAL DECREASED GLUCOSE; Start 05/09/19 at 17:00 Atorvastatin Calcium (Lipitor) 80 mg HS NGT Last administered on 05/27/19at 20:19; Admin Dose 80 MG; Start 05/11/19 at 21:00 Insulin Glargine (Lantus) 10 units DAILY@2000 SC Last administered on 05/27/19at 20:39; Admin Dose 10 UNITS; Start 05/11/19 at 20:00 IV Flush (NS 10 ml) 10 ml PRN PRN IV IV PROTOCOL; Start 05/13/19 at 14:00 Metoprolol Tartrate (Lopressor) 200 mg BID NGT Last administered on 05/28/19 10:12; Admin Dose 200 MG; Start 05/14/19 at 09:15 Lisinopril (Zestril) 40 mg BID GTB Last administered on 05/28/19 10:12; Admin Dose 40 MG; Start 05/15/19 at 09:00 Tramadol HCl (Ultram) 50 mg Q6H PRN NGT MODERATE PAIN LEVEL 4-6 Last admini stered on 05/27/19 04:05; Admin Dose 50 MG; Start 05/18/19 at 11:00 Acetaminophen (Tylenol Liquid) 650 mg Q6H PRN NGT .PAIN 1-3 OR TEMP Last administered on 05/26/19 21:25; Admin Dose 650 MG; Start 05/19/19 at 00:00 Famotidine (Pepcid) 20 mg Q12 NGT Last administered on 05/28/19 10:12; Admin Dose 20 MG; Start 05/18/19 at 21:00 Hydralazine HCl (Apresoline) 100 mg Q8 NGT Last administered on 05/28/19 05:25; Admin Dose 100 MG; Start 05/18/19 at 22:00 Spironolactone (Aldactone) 100 mg BID NGT Last administered on 05/28/19 10:18; Admin Dose 100 MG; Start 05/19/19 at 21:00 Labetalol HCl (Labetalol) 10 mg Q4H PRN IV sys bp > 160 Last administered on 05/23/19 06:24; Admin Dose 10 MG; Start 05/19/19 at 17:17 Eye Lubricant (Artificial Tears Oph) 1 drop TID BOTH EYES Last administered on 05/28/19 12:14; Admin Dose 1 DROP; Start 05/20/19 at 13:00 Nifedipine (Procardia) 20 mg Q6 NGT Last administered on 05/28/19 05:25; Admin Dose 20 MG; Start 05/23/19 at 12:00 Enoxaparin Sodium (Lovenox) 125 mg Q12 SC Last administered on 05/28/19 10:26; Admin Dose 125 MG; Start 05/24/19 at 21:00 Doxazosin Mesylate (Cardura) 8 mg BID NGT Last administered on 6/29/19at 10:11; Admin Dose 8 MG; Start 05/27/19 at 21:00 Diagnostic Test (Pha) (Accu-Chek) 1 ea 02 XX Last administered on 05/28/19at 01:56; Admin Dose 1 EA; Start 05/28/19 at 02:00 Insulin Aspart (Novolog Insulin Pen) NOVOLOG *MODERATE* ALGORITHM WITH MEALS BEDTIME SC ; Start 05/27/19 at 21:00 TI KAN MD May 28, 2019 15:11
--- NOTE | 2019-05-28 15:57 | PN ---
Date/Time of Note Date/Time of Note DATE: 05/28/19 TIME: 15:55 Assessment/Plan VTE Prophylaxis Risk score (from Ns)>0 risk: 4 SCD applied (from Ns): No SCD contraindicated: other (no) Pharmacological prophylaxis: LMWH Lines/Catheters IV C[facility]ter Type (from [facility] Saline Lock Urinary Cath still in place: No Assessment/Plan Assessment/Plan 39-year-old morbidly obese woman with history of HTN who comes in with decreased p.o. intake, lethargy preceded by delirium and nausea and vomiting. 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 #Encephalopathy-slowly improving as patient answers slightly more questions now in [place], MRI brain showed several new and old infarcts concerning for central embolic source. There there apparently was small frontal bleed which may be hemorrhagic infarct - TTE done without evidence of vegetations or thrombus - HIV negative - No concern for infectious meningitis based on LP, patient presently off antibiotics. Repeat head CT on May 20 showed some improvement in the frontal bleed. - Neurology Dr. Laurent following - Limit sedation as much as possible, continue PT and OT as much as possible - Plan to repeat MRI brain for surveillance. #Upper extremity thrombosis - L upper superficial vein thrombosis involving cephalic vein. - Will start therapeutic lovenox. Discontinue aspirin. #GARDENIA - Likely due to iatrogenic vancomycin toxicity-resolved #Respiratory failure- Intubated earlier this admission due to poor mental status, but self extubated on May 15, 2019. - Currently protecting airway # Hypertension: Still on Cardene drip, adjustments made to the dosages and new p.o. regimen added a few days ago. Appreciate endocrinology consult, patient currently being worked up for other possible etiologies of secondary hypertension such as hyperaldosteronism, also considering pheochromocytoma and renal artery stenosis (although these are less likely). - Continue metoprolol (maxed), lisinopril (maxed), hydralazine (maxed), spironolactone, nifedipene (increasing dose) - Follow further recommendations from endocrinology team to further investigate any potential hyperaldosteronism source/etiology of her hypertension. # DVT prophylaxis: SCDs Dispo: Continue PT, OT, and speech therapy. Result Diagram: 05/28/1970405/28/19 07 Subjective 24 Hr Interval Summary Free Text/Dictation No acute overnight events. Patient continues to be lethargic. At times refusing meds, missed a dose of nifedipene today. Exam/Review of Systems Exam Vitals Vital Signs Date Temp Pulse Resp B/P (MAP) Pulse Ox O2 O2 Flow FiO2 Time Delivery Rate 05/28/19 97.7 68 20 133/85 97 Room Air 15:07 (101) 05/28/19 21 00:11 Intake and Output 05/27/19 05/27/19 05/28/19 1515:00 23:00 07:00 IntakeIntake Total 150 ml 450 ml OutputOutput Total 425 ml BalanceBalance -275 ml 450 ml Exam Gen: Morbidly obese woman lying supine in bed, sleepy Eyes: Slightly injected conjunctivae. Normal pupils ENT: Normal External Ears, Nose and Mouth. Moist mucous membranes. Neck: No meningismus. No lymphadenopathy. Resp: Clear to auscultation bilaterally. Cardio: Regular rate and rhythm, no murmurs appreciated. Abd: Soft, obese, nondistended, normal bowel sounds Ext: No lower extremity edema bilaterally Results Results 24hrs Laboratory Tests Test 05/27/19 17:52 05/27/19 20:15 05/28/19 01:52 05/28/19 07:05 Bedside Glucose 139 129 150 White Blood Count 4.8 Red Blood Count 5.80 H Hemoglobin 16.1 H Hematocrit 50.4 H Mean Corpuscular 86.9 Volume Mean Corpuscular 27.8 L Hemoglobin Mean Corpuscular 31.9 L Hemoglobin Concent Red Cell 13.6 Distribution Width Platelet Count 316 Mean Platelet Volume 11.6 H Immature 0.400 Granulocytes % Neutrophils % 40.1 Lymphocytes % 43.9 Monocytes % 10.0 Eosinophils % 4.8 Basophils % 0.8 Nucleated Red Blood 0.0 Cells % Immature 0.020 Granulocytes # Neutrophils # 1.9 Lymphocytes # 2.1 Monocytes # 0.5 Eosinophils # 0.2 Basophils # 0.0 Nucleated Red Blood 0.0 Cells # Sodium Level 138 Potassium Level 4.5 Chloride Level 100 Carbon Dioxide Level 25 Anion Gap 13 Blood Urea Nitrogen 31 H Creatinine 0.99 Est Glomerular > 60 Filtrat Rate mL/min Glucose Level 140 # Calcium Level 10.1 Test 05/28/19 10:06 05/28/19 12:12 Bedside Glucose 129 128 Medications Medication Current Medications IV Flush (NS 3 ml) 3 ml PER PROTOCOL IV ; Start 05/09/19 at 00:00 Ondansetron HCl (Zofran Inj) 4 mg Q6H PRN IV NAUSEA/VOMITING; Start 05/09/19 at 00:00 Docusate Sodium (Colace) 100 mg Q12H PRN PO .CONSTIPATION; Start 05/09/19 at 00:00 Magnesium Hydroxide (Milk Of Mag) 30 ml DAILY PRN PO .CONSTIPATION; Start 05/09/19 at 00:00 Nitroglycerin (Nitroglycerin (Sl Tab) 0.4 Mg) 1 tab Q5M PRN SL ANGINA; Start 05/09/19 at 00:00 Miscellaneous Information 1 ea NOTE XX ; Start 05/09/19 at 17:00 Glucose (Glutose) 15 gm Q15M PRN PO DECREASED GLUCOSE; Start 05/09/19 at 17:00 Glucose (Glutose) 22.5 gm Q15M PRN PO DECREASED GLUCOSE; Start 05/09/19 at 17:00 Dextrose (D50w Syringe) 25 ml Q15M PRN IV DECREASED GLUCOSE; Start 05/09/19 at 17:00 Dextrose (D50w Syringe) 50 ml Q15M PRN IV DECREASED GLUCOSE; Start 05/09/19 at 17:00 Glucagon (Glucagen) 1 mg Q15M PRN IM DECREASED GLUCOSE; Start 05/09/19 at 17:00 Glucose (Glutose) 15 gm Q15M PRN BUCCAL DECREASED GLUCOSE; Start 05/09/19 at 17:00 Atorvastatin Calcium (Lipitor) 80 mg HS NGT Last administered on 05/27/19at 20:19; Admin Dose 80 MG; Start 05/11/19 at 21:00 Insulin Glargine (Lantus) 10 units DAILY@2000 SC Last administered on 05/27/19at 20:39; Admin Dose 10 UNITS; Start 05/11/19 at 20:00 IV Flush (NS 10 ml) 10 ml PRN PRN IV IV PROTOCOL; Start 05/13/19 at 14:00 Metoprolol Tartrate (Lopressor) 200 mg BID NGT Last administered on 05/28/19at 10:12; Admin Dose 200 MG; Start 05/14/19 at 09:15 Lisinopril (Zestril) 40 mg BID GTB Last administered on 05/28/19at 10:12; Admin Dose 40 MG; Start 05/15/19 at 09:00 Tramadol HCl (Ultram) 50 mg Q6H PRN NGT MODERATE PAIN LEVEL 4-6 Last administered on 05/27/19 04:05; Admin Dose 50 MG; Start 05/18/19 at 11:00 Acetaminophen (Tylenol Liquid) 650 mg Q6H PRN NGT .PAIN 1-3 OR TEMP Last administered on 05/26/19 21:25; Admin Dose 650 MG; Start 05/19/19 at 00:00 Famotidine (Pepcid) 20 mg Q12 NGT Last administered on 05/28/19 10:12; Admin Dose 20 MG; Start 05/18/19 at 21:00 Hydralazine HCl (Apresoline) 100 mg Q8 NGT Last administered on 05/28/19 05:25; Admin Dose 100 MG; Start 05/18/19 at 22:00 Spironolactone (Aldactone) 100 mg BID NGT Last administered on 05/28/19 10:18; Admin Dose 100 MG; Start 05/19/19 at 21:00 Labetalol HCl (Labetalol) 10 mg Q4H PRN IV sys bp > 160 Last administered on 05/23/19 06:24; Admin Dose 10 MG; Start 05/19/19 at 17:17 Eye Lubricant (Artificial Tears Oph) 1 drop TID BOTH EYES Last administered on 05/28/19 12:14; Admin Dose 1 DROP; Start 05/20/19 at 13:00 Nifedipine (Procardia) 20 mg Q6 NGT Last administered on 05/28/19 05:25; Admin Dose 20 MG; Start 05/23/19 at 12:00 Enoxaparin Sodium (Lovenox) 125 mg Q12 SC Last administered on 05/28/19 10:26; Admin Dose 125 MG; Start 05/24/19 at 21:00 Doxazosin Mesylate (Cardura) 8 mg BID NGT Last administered on 05/28/19 10:11; Admin Dose 8 MG; Start 05/27/19 at 21:00 Diagnostic Test (Pha) (Accu-Chek) 1 ea 02 XX Last administered on 05/28/19 01:56; Admin Dose 1 EA; Start 6/29/19 at 02:00 Insulin Aspart (Novolog Insulin Pen) NOVOLOG *MODERATE* ALGORITHM WITH MEALS BEDTIME SC ; Start 05/27/19 at 21:00 DAVID QUIÑONEZ MD May 28, 2019 15:57
[2019-05-28 19:46] VITALS: BP 108/57; PULSE 18; PULSE 20; PULSE 99; RESP 18
[2019-05-28] MEDS: ATORVASTATIN 80 MG TAB NGT SCH (21:02)
[2019-05-28] MEDS: INSULIN GLARGINE [LANTus] (100 UNITS/ML) SYG SC SCH (21:26)
[2019-05-29] VITALS (8 sets, daily range): BP systolic 113–169; BP diastolic 57–91; PULSE 70–103; RESP 18–20
[2019-05-29] MEDS: ACCU-CHEK XX SCH ×2 (02:00→21:23)
[2019-05-29] MEDS: NIFEdipine 10 MG CAP NGT SCH ×3 (06:00→13:25)
[2019-05-29] MEDS: ARTIFICIAL TEARS 15 ML OPH BOTH EYES SCH ×3 (09:29→21:16)
[2019-05-29] MEDS: INSULIN ASPART [NOVOLOG] 3 ML PEN SC SCH ×4 (09:31→21:00)
[2019-05-29] MEDS: DOXAZOSIN 4 MG TAB NGT SCH (09:53)
[2019-05-29] MEDS: SPIRONOLACTONE 50 MG TAB NGT SCH (09:53)
[2019-05-29] MEDS: LISINOPRIL 20 MG TAB GTB SCH (09:54)
[2019-05-29] MEDS: METOPROLOL 100 MG TAB NGT SCH (09:54)
[2019-05-29] MEDS: FAMOTIDINE 20 MG TAB NGT SCH (09:54)
[2019-05-29] MEDS: ENOXAPARIN 100 MG/ML SYG SC SCH (11:39)
--- NOTE | 2019-05-29 14:04 | PN ---
Date/Time of Note Date/Time of Note DATE: 05/29/19 TIME: 13:57 Assessment/Plan VTE Prophylaxis Risk score (from Ns)>0 risk: 4 SCD applied (from Ns): No SCD contraindicated: other (no) Pharmacological prophylaxis: apixaban Lines/Catheters IV [facility] Type (from [facility]): Saline Lock Urinary Cath still in place: No Assessment/Plan Assessment/Plan 39-year-old morbidly obese woman with history of HTN who comes in with decreased p.o. intake, lethargy preceded by delirium and nausea and vomiting. 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 #Encephalopathy-slowly improving as patient answers slightly more questions now in [place], MRI brain showed several new and old infarcts concerning for central embolic source. There there apparently was small frontal bleed which may be hemorrhagic infarct - TTE done without evidence of vegetations or thrombus - HIV negative - No concern for infectious meningitis based on LP, patient presently off antibiotics. Repeat head CT on May 20 showed some improvement in the frontal bleed. - Neurology Dr. Laurent following - Limit sedation as much as possible, continue PT and OT. - May have been due to uncontrolled hypertension. # Hypertension: - Appreciate endocrinology consult, patient currently being worked up for other possible etiologies of secondary hypertension such as hyperaldosteronism, also considering pheochromocytoma and renal artery stenosis (although these are less likely). - Continue metoprolol (maxed), lisinopril (maxed), hydralazine (maxed), spironolactone, nifedipene. - Follow further recommendations from endocrinology team to further investigate any potential hyperaldosteronism source/etiology of her hypertension. #Upper extremity thrombosis - L upper superficial vein thrombosis involving cephalic vein. - PO Eliquis, no aspirin. #GARDENIA - Likely due to iatrogenic vancomycin toxicity-resolved #Respiratory failure- Intubated earlier this admission due to poor mental status, but self extubated on May 15, 2019. - Now resolved. # DVT prophylaxis: SCDs Dispo: Continue PT, OT, and speech therapy. Result Diagram: 05/29/19 0554 05/29/19 0554 Subjective 24 Hr Interval Summary Free Text/Dictation This morning patient more awake. She is tearful and believes that she will be in the hospital forever and that the pills we are giving her are making her so sleepy. I offered reassurance. The patient has been intermittently refusing BP meds but usually she can be coaxed into taking them. Exam/Review of Systems Exam Vitals Vital Signs Date Temp Pulse Resp B/P (MAP) Pulse Ox O2 O2 Flow FiO2 Time Delivery Rate 05/29/19 98.4 99 18 138/79 95 11:58 (98) 05/29/19 Room Air 04:03 05/28/19 21 00:11 Intake and Output 05/28/19 05/28/19 05/29/19 1515:00 23:00 07:00 IntakeIntake Total 700 ml 50 ml OutputOutput Total 4 ml BalanceBalance 696 ml 50 ml Exam Gen: Morbidly obese woman lying supine in bed, awake and alert. Eyes: Slightly injected conjunctivae. Normal pupils ENT: Normal External Ears, Nose and Mouth. Moist mucous membranes. Neck: No meningismus. No lymphadenopathy. Resp: Clear to auscultation bilaterally. Cardio: Regular rate and rhythm, no murmurs appreciated. Abd: Soft, obese, nondistended, normal bowel sounds Ext: No lower extremity edema bilaterally Results Results 24hrs Laboratory Tests Test 05/28/19 17:36 05/28/19 21:07 05/29/19 05:54 05/29/19 09:20 Bedside Glucose 136 151 145 White Blood Count 4.6 L Red Blood Count 5.79 H Hemoglobin 16.4 H Hematocrit 49.9 H Mean Corpuscular 86.2 Volume Mean Corpuscular 28.3 L Hemoglobin Mean Corpuscular 32.9 Hemoglobin Concent Red Cell 13.5 Distribution Width Platelet Count 325 Mean Platelet Volume 11.3 H Immature 0.200 Granulocytes % Neutrophils % 42.4 Lymphocytes % 44.0 Monocytes % 9.3 Eosinophils % 3.2 Basophils % 0.9 Nucleated Red Blood 0.0 Cells % Immature 0.010 Granulocytes # Neutrophils # 2.0 Lymphocytes # 2.0 Monocytes # 0.4 Eosinophils # 0.2 Basophils # 0.0 Nucleated Red Blood 0.0 Cells # Sodium Level 141 Potassium Level 4.5 Chloride Level 101 Carbon Dioxide Level 27 Anion Gap 13 Blood Urea Nitrogen 29 H Creatinine 0.93 Est Glomerular > 60 Filtrat Rate mL/min Glucose Level 120 Calcium Level 10.1 Phosphorus Level 4.5 Magnesium Level 1.9 Test 05/29/19 12:08 Bedside Glucose 158 Medications Medication Current Medications IV Flush (NS 3 ml) 3 ml PER PROTOCOL IV ; Start 05/09/19 at 00:00 Ondansetron HCl (Zofran Inj) 4 mg Q6H PRN IV NAUSEA/VOMITING; Start 05/09/19 at 00:00 Docusate Sodium (Colace) 100 mg Q12H PRN PO .CONSTIPATION; Start 05/09/19 at 00:00 Magnesium Hydroxide (Milk Of Mag) 30 ml DAILY PRN PO .CONSTIPATION; Start 05/09/19 at 00:00 Nitroglycerin (Nitroglycerin (Sl Tab) 0.4 Mg) 1 tab Q5M PRN SL ANGINA; Start 05/09/19 at 00:00 Miscellaneous Information 1 ea NOTE XX ; Start 05/09/19 at 17:00 Glucose (Glutose) 15 gm Q15M PRN PO DECREASED GLUCOSE; Start 05/09/19 at 17:00 Glucose (Glutose) 22.5 gm Q15M PRN PO DECREASED GLUCOSE; Start 05/09/19 at 17:00 Dextrose (D50w Syringe) 25 ml Q15M PRN IV DECREASED GLUCOSE; Start 05/09/19 at 17:00 Dextrose (D50w Syringe) 50 ml Q15M PRN IV DECREASED GLUCOSE; Start 05/09/19 at 17:00 Glucagon (Glucagen) 1 mg Q15M PRN IM DECREASED GLUCOSE; Start 05/09/19 at 17:00 Glucose (Glutose) 15 gm Q15M PRN BUCCAL DECREASED GLUCOSE; Start 05/09/19 at 17:00 Atorvastatin Calcium (Lipitor) 80 mg HS NGT Last administered on 05/28/19at 21:02; Admin Dose 80 MG; Start 05/11/19 at 21:00 Insulin Glargine (Lantus) 10 units DAILY@2000 SC Last administered on 05/28/19at 21:26; Admin Dose 10 UNITS; Start 05/11/19 at 20:00 IV Flush (NS 10 ml) 10 ml PRN PRN IV IV PROTOCOL; Start 05/13/19 at 14:00 Metoprolol Tartrate (Lopressor) 200 mg BID NGT Last administered on 05/29/19at 09:54; Admin Dose 200 MG; Start 05/14/19 at 09:15 Lisinopril (Zestril) 40 mg BID GTB Last administered on 05/29/19 09:54; Admin Dose 40 MG; Start 05/15/19 at 09:00 Tramadol HCl (Ultram) 50 mg Q6H PRN NGT MODERATE PAIN LEVEL 4-6 Last administered on 05/27/19 04:05; Admin Dose 50 MG; Start 05/18/19 at 11:00 Acetaminophen (Tylenol Liquid) 650 mg Q6H PRN NGT .PAIN 1-3 OR TEMP Last administered on 05/26/19 21:25; Admin Dose 650 MG; Start 05/19/19 at 00:00 Famotidine (Pepcid) 20 mg Q12 NGT Last administered on 05/29/19 09:54; Admin Dose 20 MG; Start 05/18/19 at 21:00 Hydralazine HCl (Apresoline) 100 mg Q8 NGT Last administered on 05/29/19 13:25 ; Admin Dose 100 MG; Start 05/18/19 at 22:00 Spironolactone (Aldactone) 100 mg BID NGT Last administered on 05/29/19 09:53; Admin Dose 100 MG; Start 05/19/19 at 21:00 Labetalol HCl (Labetalol) 10 mg Q4H PRN IV sys bp > 160 Last administered on 05/23/19 06:24; Admin Dose 10 MG; Start 05/19/19 at 17:17 Eye Lubricant (Artificial Tears Oph) 1 drop TID BOTH EYES Last administered on 05/29/19 13:25; Admin Dose 1 DROP; Start 05/20/19 at 13:00 Nifedipine (Procardia) 20 mg Q6 NGT Last administered on 05/29/19 13:25; Admin Dose 20 MG; Start 05/23/19 at 12:00 Enoxaparin Sodium (Lovenox) 125 mg Q12 SC Last administered on 05/29/19 11:39; Admin Dose 125 MG; Start 05/24/19 at 21:00 Doxazosin Mesylate (Cardura) 8 mg BID NGT Last administered on 05/29/19 09:53; Admin Dose 8 MG; Start 05/27/19 at 21:00 Diagnostic Test (Pha) (Accu-Chek) 1 ea 02 XX Last administered on 05/28/19 01:56; Admin Dose 1 EA; Start 05/28/19 at 02:00 Insulin Aspart (Novolog Insulin Pen) NOVOLOG *MODERATE* ALGORITHM WITH MEALS BEDTIME SC Last administered on 05/29/19at 12:14; Admin Dose 2 UNIT; Start 05/27/19 at 21:00 DAVID QUIÑONEZ MD May 29, 2019 14:04
--- NOTE | 2019-05-29 14:20 | CONS ---
Assessment/Plan Assessment/Plan Problems: (1) Hypertension Status: Chronic Comment: Fair control. Still no MRI to rule out VEL. Fractionated catecholamines still pending Qualifiers: Hypertension type: unspecified Qualified Codes: I10 - Essential (primary) hypertension (2) Diabetes mellitus type 2 in obese Status: Chronic Comment: Good glycemic control Consultation Date/Type/Reason Admit Date/Time May 08, 2019 at 23:21 Initial Consult Date 05/19/19 Type of Consult Endocrine Reason for Consultation Hypertension r/o secondary causes, DM type2 Requesting Provider: DAMIEN CHOUDHARY Date/Time of Note DATE: 05/29/19 TIME: 14:17 24 HR Interval Summary Free Text/Dictation No hypoglycemia. MRI still not done Exam/Review of Systems Exam Vitals Vital Signs Date Temp Pulse Resp B/P (MAP) Pulse Ox O2 O2 Flow FiO2 Time Delivery Rate 05/29/19 98.4 99 18 138/79 95 11:58 (98) 05/29/19 Room Air 04:03 05/28/19 21 00:11 Intake and Output 05/28/19 05/28/19 05/29/19 1515:00 23:00 07:00 IntakeIntake Total 700 ml 50 ml OutputOutput Total 4 ml BalanceBalance 696 ml 50 ml Results Result Diagram: 05/29/19 0554 05/29/19 0554 Results 24hrs Laboratory Tests Test 05/28/19 17:36 05/28/19 21:07 05/29/19 05:54 05/29/19 09:20 Bedside Glucose 136 151 145 White Blood Count 4.6 L Red Blood Count 5.79 H Hemoglobin 16.4 H Hematocrit 49.9 H Mean Corpuscular 86.2 Volume Mean Corpuscular 28.3 L Hemoglobin Mean Corpuscular 32.9 Hemoglobin Concent Red Cell 13.5 Distribution Width Platelet Count 325 Mean Platelet Volume 11.3 H Immature 0.200 Granulocytes % Neutrophils % 42.4 Lymphocytes % 44.0 Monocytes % 9.3 Eosinophils % 3.2 Basophils % 0.9 Nucleated Red Blood 0.0 Cells % Immature 0.010 Granulocytes # Neutrophils # 2.0 Lymphocytes # 2.0 Monocytes # 0.4 Eosinophils # 0.2 Basophils # 0.0 Nucleated Red Blood 0.0 Cells # Sodium Level 141 Potassium Level 4.5 Chloride Level 101 Carbon Dioxide Level 27 Anion Gap 13 Blood Urea Nitrogen 29 H Creatinine 0.93 Est Glomerular > 60 Filtrat Rate mL/min Glucose Level 120 Calcium Level 10.1 Phosphorus Level 4.5 Magnesium Level 1.9 Test 05/29/19 12:08 Bedside Glucose 158 Medications Medication Current Medications IV Flush (NS 3 ml) 3 ml PER PROTOCOL IV ; Start 05/09/19 at 00:00 Ondansetron HCl (Zofran Inj) 4 mg Q6H PRN IV NAUSEA/VOMITING; Start 05/09/19 at 00:00 Docusate Sodium (Colace) 100 mg Q12H PRN PO .CONSTIPATION; Start 05/09/19 at 00:00 Magnesium Hydroxide (Milk Of Mag) 30 ml DAILY PRN PO .CONSTIPATION; Start 05/09/19 at 00:00 Nitroglycerin (Nitroglycerin (Sl Tab) 0.4 Mg) 1 tab Q5M PRN SL ANGINA; Start 05/09/19 at 00:00 Miscellaneous Information 1 ea NOTE XX ; Start 05/09/19 at 17:00 Glucose (Glutose) 15 gm Q15M PRN PO DECREASED GLUCOSE; Start 05/09/19 at 17:00 Glucose (Glutose) 22.5 gm Q15M PRN PO DECREASED GLUCOSE; Start 05/09/19 at 17:00 Dextrose (D50w Syringe) 25 ml Q15M PRN IV DECREASED GLUCOSE; Start 05/09/19 at 17:00 Dextrose (D50w Syringe) 50 ml Q15M PRN IV DECREASED GLUCOSE; Start 05/09/19 at 17:00 Glucagon (Glucagen) 1 mg Q15M PRN IM DECREASED GLUCOSE; Start 05/09/19 at 17:00 Glucose (Glutose) 15 gm Q15M PRN BUCCAL DECREASED GLUCOSE; Start 05/09/19 at 17:00 Atorvastatin Calcium (Lipitor) 80 mg HS NGT Last administered on 05/28/19at 21:02; Admin Dose 80 MG; Start 05/11/19 at 21:00 Insulin Glargine (Lantus) 10 units DAILY@2000 SC Last administered on 05/28/19at 21:26; Admin Dose 10 UNITS; Start 05/11/19 at 20:00 IV Flush (NS 10 ml) 10 ml PRN PRN IV IV PROTOCOL; Start 05/13/19 at 14:00 Metoprolol Tartrate (Lopressor) 200 mg BID NGT Last administered on 05/29/19 09:54; Admin Dose 200 MG; Start 05/14/19 at 09:15 Lisinopril (Zestril) 40 mg BID GTB Last administered on 05/29/19 09:54; Admin Dose 40 MG; Start 05/15/19 at 09:00 Tramadol HCl (Ultram) 50 mg Q6H PRN NGT MODERATE PAIN LEVEL 4-6 Last administered on 05/27/19 04:05; Admin Dose 50 MG; Start 05/18/19 at 11:00 Acetaminophen (Tylenol Liquid) 650 mg Q6H PRN NGT .PAIN 1-3 OR TEMP Last administered on 05/26/19 21:25; Admin Dose 650 MG; Start 05/19/19 at 00:00 Famotidine (Pepcid) 20 mg Q12 NGT Last administered on 05/29/19 09:54; Admin Dose 20 MG; Start 05/18/19 at 21:00 Hydralazine HCl (Apresoline) 100 mg Q8 NGT Last administered on 05/29/19 13:25; Admin Dose 100 MG; Start 05/18/19 at 22:00 Spironolactone (Aldactone) 100 mg BID NGT Last administered on 05/29/19 09:53; Admin Dose 100 MG; Start 05/19/19 at 21:00 Labetalol HCl (Labetalol) 10 mg Q4H PRN IV sys bp > 160 Last administered on 05/23/19 06:24; Admin Dose 10 MG; Start 05/19/19 at 17:17 Eye Lubricant (Artificial Tears Oph) 1 drop TID BOTH EYES Last administered on 05/29/19 13:25; Admin Dose 1 DROP; Start 05/20/19 at 13:00 Nifedipine (Procardia) 20 mg Q6 NGT Last administered on 05/29/19 13:25; Admin Dose 20 MG; Start 05/23/19 at 12:00 Doxazosin Mesylate (Cardura) 8 mg BID NGT Last administered on 05/29/19 09:53; Admin Dose 8 MG; Start 05/27/19 at 21:00 Diagnostic Test (Pha) (Accu-Chek) 1 ea 02 XX Last administered on 05/28/19at 01:56; Admin Dose 1 EA; Start 05/28/19 at 02:00 Insulin Aspart (Novolog Insulin Pen) NOVOLOG *MODERATE* ALGORITHM WITH MEALS BEDTIME SC Last administered on 05/29/19at 12:14; Admin Dose 2 UNIT; Start 05/27/19 at 21:00 Apixaban (Eliquis) 5 mg BID PO ; Start 05/29/19 at 21:00; Status UNTI APODACA MD May 29, 2019 14:20
--- NOTE | 2019-05-29 17:45 | CONS ---
Consult Date/Type/Reason Admit Date/Time May 08, 2019 at 23:21 Initial Consult Date 05/10/19 Type of Consultation: Pulm Requesting Provider: DAMIEN CHOUDHARY Date/Time of Note DATE: 05/29/19 TIME: 17:44 Subjective Intermittently confused and anxious. Objective Vitals Vital Signs Date Temp Pulse Resp B/P (MAP) Pulse Ox O2 O2 Flow FiO2 Time Delivery Rate 05/29/19 97.7 70 18 134/81 95 Room Air 17:37 (98) 05/28/19 21 00:11 Intake and Output 05/28/19 05/28/19 05/29/19 1515:00 23:00 07:00 IntakeIntake Total 700 ml 50 ml OutputOutput Total 4 ml BalanceBalance 696 ml 50 ml Exam HEENT: Neck supple; no JVD; no LAD CVS: RRR, S1 and S2 CHEST: Clear ABD: Soft, NT, + BS EXT: No c/c/e Results/Medications Result Diagram: 05/29/19 0554 05/29/19 0554 Results 24 hrs Laboratory Tests Test 05/28/19 21:07 05/29/19 05:54 05/29/19 09:20 05/29/19 12:08 Bedside Glucose 151 145 158 White Blood Count 4.6 L Red Blood Count 5.79 H Hemoglobin 16.4 H Hematocrit 49.9 H Mean Corpuscular 86.2 Volume Mean Corpuscular 28.3 L Hemoglobin Mean Corpuscular 32.9 Hemoglobin Concent Red Cell 13.5 Distribution Width Platelet Count 325 Mean Platelet Volume 11.3 H Immature 0.200 Granulocytes % Neutrophils % 42.4 Lymphocytes % 44.0 Monocytes % 9.3 Eosinophils % 3.2 Basophils % 0.9 Nucleated Red Blood 0.0 Cells % Immature 0.010 Granulocytes # Neutrophils # 2.0 Lymphocytes # 2.0 Monocytes # 0.4 Eosinophils # 0.2 Basophils # 0.0 Nucleated Red Blood 0.0 Cells # Sodium Level 141 Potassium Level 4.5 Chloride Level 101 Carbon Dioxide Level 27 Anion Gap 13 Blood Urea Nitrogen 29 H Creatinine 0.93 Est Glomerular > 60 Filtrat Rate mL/min Glucose Level 120 Calcium Level 10.1 Phosphorus Level 4.5 Magnesium Level 1.9 Home Meds Reported Medications Lisinopril* (Lisinopril*) 20 Mg Tablet, 20 MG PO BID, #30 TAB 05/09/19 Hydralazine Hcl* (Hydralazine Hcl*) 100 Mg Tablet, 100 MG PO Q8, #90 TAB 05/09/19 Glimepiride* (Glimepiride*) 2 Mg Tablet, 2 MG PO WITH BREAKFAST, TAB 05/09/19 Metformin Hcl* (Metformin Hcl*) 1,000 Mg Tablet, 1000 MG PO WITH BREAKFAST DINNE, #60 TAB 05/09/19 Famotidine* (Famotidine*) 20 Mg Tablet, 20 MG PO BID, #60 TAB 05/09/19 Medications Current Medications IV Flush (NS 3 ml) 3 ml PER PROTOCOL IV ; Start 05/09/19 at 00:00 Ondansetron HCl (Zofran Inj) 4 mg Q6H PRN IV NAUSEA/VOMITING; Start 05/09/19 at 00:00 Docusate Sodium (Colace) 100 mg Q12H PRN PO .CONSTIPATION; Start 05/09/19 at 00:00 Magnesium Hydroxide (Milk Of Mag) 30 ml DAILY PRN PO .CONSTIPATION; Start 05/09/19 at 00:00 Nitroglycerin (Nitroglycerin (Sl Tab) 0.4 Mg) 1 tab Q5M PRN SL ANGINA; Start 05/09/19 at 00:00 Miscellaneous Information 1 ea NOTE XX ; Start 05/09/19 at 17:00 Glucose (Glutose) 15 gm Q15M PRN PO DECREASED GLUCOSE; Start 05/09/19 at 17:00 Glucose (Glutose) 22.5 gm Q15M PRN PO DECREASED GLUCOSE; Start 05/09/19 at 17:00 Dextrose (D50w Syringe) 25 ml Q15M PRN IV DECREASED GLUCOSE; Start 05/09/19 at 17:00 Dextrose (D50w Syringe) 50 ml Q15M PRN IV DECREASED GLUCOSE; Start 05/09/19 at 17:00 Glucagon (Glucagen) 1 mg Q15M PRN IM DECREASED GLUCOSE; Start 05/09/19 at 17:00 Glucose (Glutose) 15 gm Q15M PRN BUCCAL DECREASED GLUCOSE; Start 05/09/19 at 17:00 Atorvastatin Calcium (Lipitor) 80 mg HS NGT Last administered on 05/28/19at 21:02; Admin Dose 80 MG; Start 05/11/19 at 21:00 Insulin Glargine (Lantus) 10 units DAILY@2000 SC Last administered on 05/28/19 21:26; Admin Dose 10 UNITS; Start 05/11/19 at 20:00 IV Flush (NS 10 ml) 10 ml PRN PRN IV IV PROTOCOL; Start 05/13/19 at 14:00 Metoprolol Tartrate (Lopressor) 200 mg BID NGT Last administered on 05/29/19 09:54; Admin Dose 200 MG; Start 05/14/19 at 09:15 Lisinopril (Zestril) 40 mg BID GTB Last administered on 05/29/19 09:54; Admin Dose 40 MG; Start 05/15/19 at 09:00 Tramadol HCl (Ultram) 50 mg Q6H PRN NGT MODERATE PAIN LEVEL 4-6 Last administered on 05/27/19 04:05; Admin Dose 50 MG; Start 05/18/19 at 11:00 Acetaminophen (Tylenol Liquid) 650 mg Q6H PRN NGT .PAIN 1-3 OR TEMP Last administered on 05/26/19 21:25; Admin Dose 650 MG; Start 05/19/19 at 00:00 Famotidine (Pepcid) 20 mg Q12 NGT Last administered on 05/29/19 09:54; Admin Dose 20 MG; Start 05/18/19 at 21:00 Hydralazine HCl (Apresoline) 100 mg Q8 NGT Last administered on 05/29/19 13:25; Admin Dose 100 MG; Start 05/18/19 at 22:00 Spironolactone (Aldactone) 100 mg BID NGT Last administered on 05/29/19 09:53; Admin Dose 100 MG; Start 05/19/19 at 21:00 Labetalol HCl (Labetalol) 10 mg Q4H PRN IV sys bp > 160 Last administered on 05/23/19 06:24; Admin Dose 10 MG; Start 05/19/19 at 17:17 Eye Lubricant (Artificial Tears Oph) 1 drop TID BOTH EYES Last administered on 05/29/19 13:25; Admin Dose 1 DROP; Start 05/20/19 at 13:00 Nifedipine (Procardia) 20 mg Q6 NGT Last administered on 6/30/19at 13:25; Admin Dose 20 MG; Start 05/23/19 at 12:00 Doxazosin Mesylate (Cardura) 8 mg BID NGT Last administered on 05/29/19at 09:53; Admin Dose 8 MG; Start 05/27/19 at 21:00 Diagnostic Test (Pha) (Accu-Chek) 1 ea 02 XX Last administered on 05/28/19at 0 1:56; Admin Dose 1 EA; Start 05/28/19 at 02:00 Insulin Aspart (Novolog Insulin Pen) NOVOLOG *MODERATE* ALGORITHM WITH MEALS BEDTIME SC Last administered on 05/29/19at 12:14; Admin Dose 2 UNIT; Start 05/27/19 at 21:00 Apixaban (Eliquis) 5 mg BID PO ; Start 05/29/19 at 21:00 Assessment/Plan Assessment/Plan (Daily) IMP: 1. 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 A meningoencephalitis appears less likely. Overall improving 2. s/p Resp Failure 3. s/p GARDENIA 4. HTN 5. UE VTE RECS: 1. Follow neuro status closely 2. Aspiration precautions 3. PT/OT ILANA CHOU MD May 29, 2019 17:45
[2019-05-29] MEDS: SPIRONOLACTONE 50 MG TAB PO SCH (21:00)
[2019-05-29] MEDS: METOPROLOL 100 MG TAB PO SCH (21:00)
[2019-05-29] MEDS: DOXAZOSIN 4 MG TAB PO SCH (21:00)
[2019-05-29] MEDS: ATORVASTATIN 80 MG TAB PO SCH (21:10)
[2019-05-29] MEDS: LISINOPRIL 20 MG TAB PO SCH (21:11)
[2019-05-29] MEDS: APIXABAN 5 MG TABLET PO SCH (21:11)
[2019-05-29] MEDS: FAMOTIDINE 20 MG TAB PO SCH (21:12)
[2019-05-29] MEDS ORDERED: traMADol 50 MG TAB PO PRN ×2 (21:15→23:00)
[2019-05-29] MEDS: INSULIN GLARGINE [LANTus] (100 UNITS/ML) SYG SC SCH (21:22)
[2019-05-30] MEDS ORDERED: ACETAMINOPHEN 650MG/20.3ML CUP PO PRN
[2019-05-30 00:23] VITALS: BP 129/80; PULSE 69; RESP 18
[2019-05-30] MEDS: NIFEdipine 10 MG CAP PO SCH ×5 (00:44→23:59)
[2019-05-30 06:03] VITALS: BP 133/73; PULSE 84
[2019-05-30 07:27] VITALS: BP 131/84; PULSE 91; RESP 19
[2019-05-30] MEDS: INSULIN ASPART [NOVOLOG] 3 ML PEN SC SCH ×4 (08:00→21:00)
[2019-05-30] MEDS: ARTIFICIAL TEARS 15 ML OPH BOTH EYES SCH ×3 (08:27→21:05)
[2019-05-30] MEDS: SPIRONOLACTONE 50 MG TAB PO SCH ×2 (08:30→21:04)
[2019-05-30] MEDS: DOXAZOSIN 4 MG TAB PO SCH ×2 (08:31→21:04)
[2019-05-30] MEDS: METOPROLOL 100 MG TAB PO SCH ×2 (08:31→23:57)
[2019-05-30] MEDS: LISINOPRIL 20 MG TAB PO SCH ×2 (08:32→21:03)
[2019-05-30] MEDS: APIXABAN 5 MG TABLET PO SCH ×2 (08:32→21:05)
[2019-05-30] MEDS: FAMOTIDINE 20 MG TAB PO SCH ×2 (08:32→21:04)
--- NOTE | 2019-05-30 12:19 | CONS ---
Assessment/Plan Assessment/Plan Assessment/Plan (Recall) 39 F c/ reported Hx of DM2, who presents for evaluation of multiple complaints, including GI Sx...and eventual ams, for which neurology is consulted. 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 The clinical picture was initially concerning for meningoencephalitis..CSF evaluation is inconsistent w/ infection...the erythrocytosis possibly due to a traumatic tap.. Head CT was notable for a left frontal hyperdensity, likely hemorrhagic t ransformation of an above referenced focus of acute ischemia is the context of severe hypertension.. CTA head and neck is negative for multifocal stenoses, which might otherwise suggests vasculitis, etc. TTE is unrevealing; SOFIA was deferred.. EEG was without epileptiform activity Ammonia wnl, HIV/RPR neg, ESR wnl Hypercoagulability panel is negative.. P: Continued PT/OT/ST as able Hold asa while on therapeutic anticoagulation... Continued BP control to goal normotension Continue to hold all sedating medications where possible Other management and supportive care per primary Will sign off for now; please call w/ ?s Consultation Date/Type/Reason Admit Date/Time May 08, 2019 at 23:21 Type of Consult Neurology Reason for Consultation ams Requesting Provider: DAMIEN CHOUDHARY Date/Time of Note DATE: 05/30/19 TIME: 12:18 24 HR Interval Summary Free Text/Dictation Continues acute care Exam/Review of Systems Exam Vitals Vital Signs Date Temp Pulse Resp B/P (MAP) Pulse Ox O2 O2 Flow FiO2 Time Delivery Rate 05/30/19 97.1 91 19 131/84 98 07:27 (100) 05/29/19 Room Air 17:37 05/28/19 21 00:11 Intake and Output 05/29/19 05/29/19 05/30/19 1515:00 23:00 07:00 IntakeIntake Total 240 ml 120 ml OutputOutput Total 1 ml BalanceBalance 239 ml 120 ml Results Result Diagram: 05/29/19 0554 05/29/19 0554 Results 24hrs Laboratory Tests Test 05/29/19 18:57 05/29/19 21:10 05/30/19 08:29 Bedside Glucose 131 128 127 Medications Medication Current Medications IV Flush (NS 3 ml) 3 ml PER PROTOCOL IV ; Start 05/09/19 at 00:00 Ondansetron HCl (Zofran Inj) 4 mg Q6H PRN IV NAUSEA/VOMITING; Start 05/09/19 at 00:00 Docusate Sodium (Colace) 100 mg Q12H PRN PO .CONSTIPATION; Start 05/09/19 at 00:00 Magnesium Hydroxide (Milk Of Mag) 30 ml DAILY PRN PO .CONSTIPATION; Start 05/09/19 at 00:00 Nitroglycerin (Nitroglycerin (Sl Tab) 0.4 Mg) 1 tab Q5M PRN SL ANGINA; Start 05/09/19 at 00:00 Miscellaneous Information 1 ea NOTE XX ; Start 05/09/19 at 17:00 Glucose (Glutose) 15 gm Q15M PRN PO DECREASED GLUCOSE; Start 05/09/19 at 17:00 Glucose (Glutose) 22.5 gm Q15M PRN PO DECREASED GLUCOSE; Start 05/09/19 at 17:00 Dextrose (D50w Syringe) 25 ml Q15M PRN IV DECREASED GLUCOSE; Start 05/09/19 at 17:00 Dextrose (D50w Syringe) 50 ml Q15M PRN IV DECREASED GLUCOSE; Start 05/09/19 at 17:00 Glucagon (Glucagen) 1 mg Q15M PRN IM DECREASED GLUCOSE; Start 05/09/19 at 17:00 Glucose (Glutose) 15 gm Q15M PRN BUCCAL DECREASED GLUCOSE; Start 05/09/19 at 17:00 Insulin Glargine (Lantus) 10 units DAILY@2000 SC Last administered on 05/29/19at 21:22; Admin Dose 10 UNITS; Start 05/11/19 at 20:00 IV Flush (NS 10 ml) 10 ml PRN PRN IV IV PROTOCOL; Start 05/13/19 at 14:00 Eye Lubricant (Artificial Tears Oph) 1 drop TID BOTH EYES Last administered on 05/30/19at 08:27; Admin Dose 1 DROP; Start 05/20/19 at 13:00 Diagnostic Test (Pha) (Accu-Chek) 1 ea 02 XX Last administered on 05/28/19at 01:56; Admin Dose 1 EA; Start 05/28/19 at 02:00 Insulin Aspart (Novolog Insulin Pen) NOVOLOG *MODERATE* ALGORITHM WITH MEALS BEDTIME SC Last administered on 05/29/19 12:14; Admin Dose 2 UNIT; Start 05/27/19 at 21:00 Apixaban (Eliquis) 5 mg BID PO Last administered on 05/30/19 08:32; Admin Dose 5 MG; Start 05/29/19 at 21:00 Acetaminophen (Tylenol Liquid) 650 mg Q6H PRN PO .PAIN 1-3 OR TEMP; Start 05/30/19 at 00:00 Atorvastatin Calcium (Lipitor) 80 mg HS PO Last administered on 05/29/19 21:10; Admin Dose 80 MG; Start 05/29/19 at 21:00 Doxazosin Mesylate (Cardura) 8 mg BID PO Last administered on 05/30/19 08:31; Admin Dose 8 MG; Start 05/29/19 at 21:00 Famotidine (Pepcid) 20 mg Q12 PO Last administered on 05/30/19 08:32; Admin Dose 20 MG; Start 05/29/19 at 21:00 Hydralazine HCl (Apresoline) 100 mg Q8 PO Last administered on 05/30/19 06:02; Admin Dose 100 MG; Start 05/29/19 at 22:00 Lisinopril (Zestril) 40 mg BID PO Last administered on 05/30/19 08:32; Admin Dose 40 MG; Start 05/29/19 at 21:00 Metoprolol Tartrate (Lopressor) 200 mg BID PO Last administered on 05/30/19 08:31; Admin Dose 200 MG; Start 05/29/19 at 21:00 Nifedipine (Procardia) 20 mg Q6 PO Last administered on 05/30/19 06:03; Admin Dose 20 MG; Start 05/30/19 at 00:00 Spironolactone (Aldactone) 100 mg BID PO Last administered on 05/30/19 08:30; Admin Dose 100 MG; Start 05/29/19 at 21:00 Tramadol HCl (Ultram) 50 mg Q6H PRN PO MODERATE PAIN LEVEL 4-6 Last administered on 05/29/19 21:11; Admin Dose 50 MG; Start 05/29/19 at 21:15 JOSÉ TORO May 30, 2019 12:19
[2019-05-30 14:32] VITALS: BP 128/72; PULSE 82; RESP 8
[2019-05-30] MEDS ORDERED: TRIMETHOBENZAMIDE 100 MG/ML VIAL IM PRN (15:00)
--- NOTE | 2019-05-30 15:06 | PN ---
Date/Time of Note Date/Time of Note DATE: 05/30/19 TIME: 14:59 Assessment/Plan VTE Prophylaxis Risk score (from Ns)>0 risk: 8 SCD applied (from Ns): No SCD contraindicated: other Pharmacological prophylaxis: apixaban Lines/Catheters IV C[facility]ter Type (from [facility]): [facility] Urinary Cath still in place: No Assessment/Plan Hospital Course S: Patient had speech therapy eval attempted today but was too lethargic and had emesis which prevented her from participating today. Otherwise has been more awake and alert overall the last few days. Still waiting for MRI abdomen to be performed O: VS - see below PE: Gen: Morbidly obese woman lying supine in bed, more lethargic today Eyes: Slightly injected conjunctivae. Normal pupils ENT: Normal External Ears, Nose and Mouth. Moist mucous membranes. Neck: No meningismus. No lymphadenopathy. Resp: Clear to auscultation bilaterally. Cardio: Regular rate and rhythm, no murmurs appreciated. Abd: Soft, obese, nondistended, normal bowel sounds Ext: No lower extremity edema bilaterally Neuro: In restraints, lethargic, but no focal deficits Assessment/Plan: 39-year-old morbidly obese woman with history of HTN who comes in with decreased p.o. intake, lethargy preceded by delirium and nausea and vomiting. 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 #Encephalopathy-had been slowly improving the last few days as patient answers slightly more questions now in [place], however today patient again became more lethargic and speech therapy eval could not be performed. MRI brain earlier showed several new and old infarcts concerning for central embolic source. There there apparently was small frontal bleed which may be hemorrhagic infarct- TTE done without evidence of vegetations or thrombus - HIV negative - No concern for infectious meningitis based on LP, patient presently off antibiotics. Repeat head CT on May 20 showed some improvement in the frontal bleed- May have been due to uncontrolled hypertension. -For now continue to limit sedation as much as possible, continue PT and OT. -Also follow-up further ST eval's # Hypertension: Much improved the last few days- Appreciate endocrinology consult, patient currently being worked up for other possible etiologies of secondary hypertension such as hyperaldosteronism, also considering pheochromocytoma and renal artery stenosis (although these are less likely). - Continue metoprolol (maxed), lisinopril (maxed), hydralazine (maxed), spironolactone, nifedipene. - Follow further recommendations from endocrinology team to further investigate any potential hyperaldosteronism source/etiology of her hypertension-MRI abdomen ordered (to r/o VEL) by them earlier and this is still pending, we will try to have this performed today. - Fractionated catecholamines still pending as well, follow-up on these #Upper extremity thrombosis- L upper superficial vein thrombosis involving cephalic vein. -For now continue PO Eliquis (will lower to 2.5 mg twice daily), no aspirin. -Consider repeat left upper extremity ultrasound to see if there is been resolution of this superficial clot #GARDENIA - Likely due to iatrogenic vancomycin toxicity-resolved #Respiratory failure- Intubated earlier this admission due to poor mental status, but self extubated on May 15, 2019. - Now resolved, monitor for now # DVT prophylaxis: SCDs Dispo: Continue PT, OT, and speech therapy- ARU eval also pending Result Diagram: 05/29/19 0554 05/29/19 0554 Results 24hrs Laboratory Tests Test 05/29/19 18:57 05/29/19 21:10 05/30/19 08:29 05/30/19 12:24 Bedside Glucose 131 128 127 145 Exam/Review of Systems Exam Vitals Vital Signs Date Temp Pulse Resp B/P (MAP) Pulse Ox O2 O2 Flow FiO2 Time Delivery Rate 05/30/19 98.2 82 8 128/72 96 14:32 (90) 05/29/19 Room Air 17:37 05/28/19 21 00:11 Intake and Output 05/29/19 05/29/19 05/30/19 1515:00 23:00 07:00 IntakeIntake Total 240 ml 120 ml OutputOutput Total 1 ml BalanceBalance 239 ml 120 ml Results Results 24hrs Laboratory Tests Test 05/29/19 18:57 05/29/19 21:10 05/30/19 08:29 05/30/19 12:24 Bedside Glucose 131 128 127 145 Medications Medication Current Medications IV Flush (NS 3 ml) 3 ml PER PROTOCOL IV ; Start 05/09/19 at 00:00 Ondansetron HCl (Zofran Inj) 4 mg Q6H PRN IV NAUSEA/VOMITING Last administered on 05/30/19at 12:20; Admin Dose 4 MG; Start 05/09/19 at 00:00 Docusate Sodium (Colace) 100 mg Q12H PRN PO .CONSTIPATION; Start 05/09/19 at 00:00 Magnesium Hydroxide (Milk Of Mag) 30 ml DAILY PRN PO .CONSTIPATION; Start 05/09/19 at 00:00 Nitroglycerin (Nitroglycerin (Sl Tab) 0.4 Mg) 1 tab Q5M PRN SL ANGINA; Start 05/09/19 at 00:00 Miscellaneous Information 1 ea NOTE XX ; Start 05/09/19 at 17:00 Glucose (Glutose) 15 gm Q15M PRN PO DECREASED GLUCOSE; Start 05/09/19 at 17:00 Glucose (Glutose) 22.5 gm Q15M PRN PO DECREASED GLUCOSE; Start 05/09/19 at 17:00 Dextrose (D50w Syringe) 25 ml Q15M PRN IV DECREASED GLUCOSE; Start 05/09/19 at 17:00 Dextrose (D50w Syringe) 50 ml Q15M PRN IV DECREASED GLUCOSE; Start 05/09/19 at 17:00 Glucagon (Glucagen) 1 mg Q15M PRN IM DECREASED GLUCOSE; Start 05/09/19 at 17:00 Glucose (Glutose) 15 gm Q15M PRN BUCCAL DECREASED GLUCOSE; Start 05/09/19 at 17:00 Insulin Glargine (Lantus) 10 units DAILY@2000 SC Last administered on 05/29/19at 21:22; Admin Dose 10 UNITS; Start 05/11/19 at 20:00 IV Flush (NS 10 ml) 10 ml PRN PRN IV IV PROTOCOL; Start 05/13/19 at 14:00 Eye Lubricant (Artificial Tears Oph) 1 drop TID BOTH EYES Last administered on 05/30/19at 12:20; Admin Dose 1 DROP; Start 05/20/19 at 13:00 Diagnostic Test (Pha) (Accu-Chek) 1 ea 02 XX Last administered on 05/28/19at 01:56; Admin Dose 1 EA; Start 05/28/19 at 02:00 Insulin Aspart (Novolog Insulin Pen) NOVOLOG *MODERATE* ALGORITHM WITH MEALS BEDTIME SC Last administered on 05/30/19at 12:28; Admin Dose 2 UNIT; Start 05/27/19 at 21:00 Apixaban (Eliquis) 5 mg BID PO Last administered on 05/30/19 08:32; Admin Dose 5 MG; Start 05/29/19 at 21:00 Acetaminophen (Tylenol Liquid) 650 mg Q6H PRN PO .PAIN 1-3 OR TEMP; Start 05/30/19 at 00:00 Atorvastatin Calcium (Lipitor) 80 mg HS PO Last administered on 05/29/19 21:10; Admin Dose 80 MG; Start 05/29/19 at 21:00 Doxazosin Mesylate (Cardura) 8 mg BID PO Last administered on 05/30/19 08:31; Admin Dose 8 MG; Start 05/29/19 at 21:00 Famotidine (Pepcid) 20 mg Q12 PO Last administered on 05/30/19 08:32; Admin Dose 20 MG; Start 05/29/19 at 21:00 Hydralazine HCl (Apresoline) 100 mg Q8 PO Last administered on 05/30/19 14:38; Admin Dose 100 MG; Start 05/29/19 at 22:00 Lisinopril (Zestril) 40 mg BID PO Last administered on 05/30/19 08:32; Admin Dose 40 MG; Start 05/29/19 at 21:00 Metoprolol Tartrate (Lopressor) 200 mg BID PO Last administered on 05/30/19 08:31; Admin Dose 200 MG; Start 05/29/19 at 21:00 Nifedipine (Procardia) 20 mg Q6 PO Last administered on 05/30/19 06:03; Admin Dose 20 MG; Start 05/30/19 at 00:00 Spironolactone (Aldactone) 100 mg BID PO Last administered on 05/30/19 08:30; Admin Dose 100 MG; Start 05/29/19 at 21:00 Tramadol HCl (Ultram) 50 mg Q6H PRN PO MODERATE PAIN LEVEL 4-6 Last administered on 05/29/19 21:11; Admin Dose 50 MG; Start 05/29/19 at 21:15 DAMIEN CHOUDHARY May 30, 2019 15:06
[2019-05-30] MEDS ORDERED: ONDANSETRON INJ 8 MG in SOD CHLORIDE 0.9% 50 ML IV PRN (15:30)
--- NOTE | 2019-05-30 17:26 | CONS ---
Assessment/Plan Assessment/Plan Problems: (1) Hypertension Status: Chronic Comment: The MRI scan was first ordered on May 23 will probably be done tonight. Based on the results thus it may offer us an opportunity to adjust her therapeutic regimen. Qualifiers: Hypertension type: unspecified Qualified Codes: I10 - Essential (primary) hypertension (2) Diabetes mellitus type 2 in obese Status: Chronic Comment: Adequate glycemic control Consultation Date/Type/Reason Admit Date/Time May 08, 2019 at 23:21 Initial Consult Date 05/19/19 Type of Consult Endocrinology Reason for Consultation Patient being evaluated for possible secondary hypertension Requesting Provider: DAMIEN CHOUDHARY Date/Time of Note DATE: 05/30/19 TIME: 17:22 24 HR Interval Summary Subjective hx not possible: pt non-verbal Exam/Review of Systems Exam Vitals Vital Signs Date Temp Pulse Resp B/P (MAP) Pulse Ox O2 O2 Flow FiO2 Time Delivery Rate 05/30/19 98.2 82 8 128/72 96 14:32 (90) 05/29/19 Room Air 17:37 05/28/19 21 00:11 Intake and Output 05/29/19 05/29/19 05/30/19 1515:00 23:00 07:00 IntakeIntake Total 240 ml 120 ml OutputOutput Total 1 ml BalanceBalance 239 ml 120 ml Exam No change in examination Constitutional: non-verbal Results Result Diagram: 05/29/19 0554 05/29/19 0554 Results 24hrs Laboratory Tests Test 05/29/19 18:57 05/29/19 21:10 05/30/19 08:29 05/30/19 12:24 Bedside Glucose 131 128 127 145 Medications Medication Current Medications IV Flush (NS 3 ml) 3 ml PER PROTOCOL IV ; Start 05/09/19 at 00:00 Docusate Sodium (Colace) 100 mg Q12H PRN PO .CONSTIPATION; Start 05/09/19 at 00:00 Magnesium Hydroxide (Milk Of Mag) 30 ml DAILY PRN PO .CONSTIPATION; Start 05/09/19 at 00:00 Nitroglycerin (Nitroglycerin (Sl Tab) 0.4 Mg) 1 tab Q5M PRN SL ANGINA; Start 05/09/19 at 00:00 Miscellaneous Information 1 ea NOTE XX ; Start 05/09/19 at 17:00 Glucose (Glutose) 15 gm Q15M PRN PO DECREASED GLUCOSE; Start 05/09/19 at 17:00 Glucose (Glutose) 22.5 gm Q15M PRN PO DECREASED GLUCOSE; Start 05/09/19 at 17:00 Dextrose (D50w Syringe) 25 ml Q15M PRN IV DECREASED GLUCOSE; Start 05/09/19 at 17:00 Dextrose (D50w Syringe) 50 ml Q15M PRN IV DECREASED GLUCOSE; Start 05/09/19 at 17:00 Glucagon (Glucagen) 1 mg Q15M PRN IM DECREASED GLUCOSE; Start 05/09/19 at 17:00 Glucose (Glutose) 15 gm Q15M PRN BUCCAL DECREASED GLUCOSE; Start 05/09/19 at 17:00 Insulin Glargine (Lantus) 10 units DAILY@2000 SC Last administered on 05/29/19at 21:22; Admin Dose 10 UNITS; Start 05/11/19 at 20:00 IV Flush (NS 10 ml) 10 ml PRN PRN IV IV PROTOCOL; Start 05/13/19 at 14:00 Eye Lubricant (Artificial Tears Oph) 1 drop TID BOTH EYES Last administered on 05/30/19at 12:20; Admin Dose 1 DROP; Start 05/20/19 at 13:00 Diagnostic Test (Pha) (Accu-Chek) 1 ea 02 XX Last administered on 05/28/19at 01:56; Admin Dose 1 EA; Start 05/28/19 at 02:00 Insulin Aspart (Novolog Insulin Pen) NOVOLOG *MODERATE* ALGORITHM WITH MEALS BEDTIME SC Last administered on 05/30/19at 12:28; Admin Dose 2 UNIT; Start 05/27/19 at 21:00 Acetaminophen (Tylenol Liquid) 650 mg Q6H PRN PO .PAIN 1-3 OR TEMP; Start 05/30/19 at 00:00 Atorvastatin Calcium (Lipitor) 80 mg HS PO Last administered on 05/29/19at 21:10; Admin Dose 80 MG; Start 05/29/19 at 21:00 Doxazosin Mesylate (Cardura) 8 mg BID PO Last administered on 05/30/19at 08:31; Admin Dose 8 MG; Start 05/29/19 at 21:00 Famotidine (Pepcid) 20 mg Q12 PO Last administered on 05/30/19at 08:32; Admin Dose 20 MG; Start 05/29/19 at 21:00 Hydralazine HCl (Apresoline) 100 mg Q8 PO Last administered on 05/30/19at 14:38; Admin Dose 100 MG; Start 05/29/19 at 22:00 Lisinopril (Zestril) 40 mg BID PO Last administered on 05/30/19at 08:32; Admin Dose 40 MG; Start 05/29/19 at 21:00 Metoprolol Tartrate (Lopressor) 200 mg BID PO Last administered on 05/30/19at 08:31; Admin Dose 200 MG; Start 05/29/19 at 21:00 Nifedipine (Procardia) 20 mg Q6 PO Last administered on 05/30/19at 06:03; Admin Dose 20 MG; Start 05/30/19 at 00:00 Spironolactone (Aldactone) 100 mg BID PO Last administered on 05/30/19at 08:30; Admin Dose 100 MG; Start 05/29/19 at 21:00 Tramadol HCl (Ultram) 50 mg Q6H PRN PO MODERATE PAIN LEVEL 4-6 Last administered on 05/29/19at 21:11; Admin Dose 50 MG; Start 05/29/19 at 21:15 Trimethobenzamide HCl (Tigan) 200 mg Q6H PRN IM NAUSEA AND/OR VOMITING; Start 05/30/19 at 15:00 Ondansetron HCl 8 mg/Sodium Chloride 54 ml @ 216 mls/hr Q6H PRN IV NAUSEA AND/OR VOMITING; Start 05/30/19 at 15:30 Apixaban (Eliquis) 2.5 mg BID PO ; Start 05/30/19 at 21:00 VALENTINO MAYER MD May 30, 2019 17:26
[2019-05-30] MEDS ORDERED: ONDANSETRON 4 MG INJ IV PRN (18:00)
[2019-05-30 19:44] VITALS: BP 151/62; PULSE 74; RESP 20
[2019-05-30] MEDS: ATORVASTATIN 80 MG TAB PO SCH (21:04)
[2019-05-30] MEDS: INSULIN GLARGINE [LANTus] (100 UNITS/ML) SYG SC SCH (21:15)
[2019-05-30] MEDS: ACCU-CHEK XX SCH (21:16)
[2019-05-30 23:54] VITALS: BP 123/66; PULSE 79
[2019-05-31 01:29] VITALS: BP 101/57; PULSE 55; RESP 18
[2019-05-31 05:31] VITALS: BP 135/63; PULSE 77
[2019-05-31] MEDS: NIFEdipine 10 MG CAP PO SCH ×4 (05:49→18:00)
[2019-05-31 07:28] VITALS: BP 147/65; PULSE 74; RESP 20
[2019-05-31] MEDS: INSULIN ASPART [NOVOLOG] 3 ML PEN SC SCH ×4 (08:00→21:11)
[2019-05-31] MEDS: SPIRONOLACTONE 50 MG TAB PO SCH ×2 (08:23→09:00)
[2019-05-31] MEDS: APIXABAN 5 MG TABLET PO SCH ×2 (08:23→21:09)
[2019-05-31] MEDS: METOPROLOL 100 MG TAB PO SCH ×2 (08:24→21:00)
[2019-05-31] MEDS: DOXAZOSIN 4 MG TAB PO SCH ×2 (08:25→22:22)
[2019-05-31] MEDS: FAMOTIDINE 20 MG TAB PO SCH ×2 (08:25→21:09)
[2019-05-31] MEDS: LISINOPRIL 20 MG TAB PO SCH ×2 (08:25→22:22)
[2019-05-31] MEDS: ARTIFICIAL TEARS 15 ML OPH BOTH EYES SCH ×3 (08:26→21:10)
--- NOTE | 2019-05-31 08:47 | CONS ---
Assessment/Plan Assessment/Plan Problems: (1) Hypertension Status: Chronic Comment: Blood pressure remains adequately controlled. The results of the work-up that I can get done are still pending. Please note the spironolactone that was initiated prior to my being called on to the case precludes my being ab le to do a work-up for primary hyperaldosteronism. However and get a go ahead and lower the spironolactone as I think he got adequate control of her blood pressure I do not believe that this is truly where the answer is. Qualifiers: Hypertension type: unspecified Qualified Codes: I10 - Essential (primary) hypertension (2) Grade II diastolic dysfunction Status: Chronic Comment: Control blood pressure and pulse rate (3) Diabetes mellitus type 2 in obese Status: Chronic Comment: Good glycemic control under the present circumstances in a controlled setting (4) Hyperlipidemia Status: Chronic Comment: Maintain aggressive statin therapy Qualifiers: Hyperlipidemia type: pure hypercholesterolemia Qualified Codes: E78.00 - Pure hypercholesterolemia, unspecified (5) Hemorrhagic cerebrovascular accident (CVA) Onset Date: ~ 05/08/2019 Status: Acute Comment: She is doing a little bit better. However she is nonambulatory. I have a suspicion that her rehabilitation potential is actually pretty good but this can be a very long drawn out rehabilitation protocol. In addition she is getting need therapist that can speak [place] to help inspire her Consultation Date/Type/Reason Admit Date/Time May 08, 2019 at 23:21 Initial Consult Date 05/19/19 Type of Consult Endocrinology Reason for Consultation Diabetes mellitus type 2; accelerated hypertension; obesity; multifocal CVA Requesting Provider: DAMIEN CHOUDHARY Date/Time of Note DATE: 05/31/19 TIME: 08:42 24 HR Interval Summary Free Text/Dictation Patient is verbal this morning. States that it is imperative that she should be able to get back to walking. Detailed Summary Respiratory: no complaints Cardiovascular: no complaints Endocrine: no complaints Exam/Review of Systems Exam Vitals Vital Signs Date Temp Pulse Resp B/P (MAP) Pulse Ox O2 O2 Flow FiO2 Time Delivery Rate 05/31/19 98.1 74 20 147/65 98 07:28 (92) 05/29/19 Room Air 17:37 05/28/19 21 00:11 Intake and Output 05/30/19 05/30/19 05/31/19 1515:00 23:00 07:00 IntakeIntake Total 240 ml BalanceBalance 240 ml Constitutional: alert Head: normocephalic, atraumatic Respiratory: clear to auscultation, normal air movement Cardiovascular: regular rate and rhythm, nl pulses Gastrointestinal: soft, nl liver, spleen, non-tender, other (No bruit) Results Result Diagram: 05/29/19 0554 05/29/19 0554 Results 24hrs Laboratory Tests Test 05/30/19 12:24 05/30/19 17:43 05/30/19 21:00 05/31/19 04:31 Bedside Glucose 145 130 108 Phosphorus Level 5.9 H Magnesium Level 2.1 Test 05/31/19 07:55 Bedside Glucose 113 Medications Medication Current Medications IV Flush (NS 3 ml) 3 ml PER PROTOCOL IV ; Start 05/09/19 at 00:00 Docusate Sodium (Colace) 100 mg Q12H PRN PO .CONSTIPATION; Start 05/09/19 at 00:00 Magnesium Hydroxide (Milk Of Mag) 30 ml DAILY PRN PO .CONSTIPATION; Start 05/09/19 at 00:00 Nitroglycerin (Nitroglycerin (Sl Tab) 0.4 Mg) 1 tab Q5M PRN SL ANGINA; Start 05/09/19 at 00:00 Miscellaneous Information 1 ea NOTE XX ; Start 05/09/19 at 17:00 Glucose (Glutose) 15 gm Q15M PRN PO DECREASED GLUCOSE; Start 05/09/19 at 17:00 Glucose (Glutose) 22.5 gm Q15M PRN PO DECREASED GLUCOSE; Start 05/09/19 at 17:00 Dextrose (D50w Syringe) 25 ml Q15M PRN IV DECREASED GLUCOSE; Start 05/09/19 at 17:00 Dextrose (D50w Syringe) 50 ml Q15M PRN IV DECREASED GLUCOSE; Start 05/09/19 at 17:00 Glucagon (Glucagen) 1 mg Q15M PRN IM DECREASED GLUCOSE; Start 05/09/19 at 17:00 Glucose (Glutose) 15 gm Q15M PRN BUCCAL DECREASED GLUCOSE; Start 05/09/19 at 17:00 Insulin Glargine (Lantus) 10 units DAILY@2000 SC Last administered on 05/30/19at 21:15; Admin Dose 10 UNITS; Start 05/11/19 at 20:00 IV Flush (NS 10 ml) 10 ml PRN PRN IV IV PROTOCOL; Start 05/13/19 at 14:00 Eye Lubricant (Artificial Tears Oph) 1 drop TID BOTH EYES Last administered on 05/31/19 08:26; Admin Dose 1 DROP; Start 05/20/19 at 13:00 Diagnostic Test (Pha) (Accu-Chek) 1 ea 02 XX Last administered on 05/28/19 01:56; Admin Dose 1 EA; Start 05/28/19 at 02:00 Insulin Aspart (Novolog Insulin Pen) NOVOLOG *MODERATE* ALGORITHM WITH MEALS BEDTIME SC Last administered on 05/30/19 12:28; Admin Dose 2 UNIT; Start 05/27/19 at 21:00 Acetaminophen (Tylenol Liquid) 650 mg Q6H PRN PO .PAIN 1-3 OR TEMP; Start 05/30/19 at 00:00 Atorvastatin Calcium (Lipitor) 80 mg HS PO Last administered on 05/30/19 21:04; Admin Dose 80 MG; Start 05/29/19 at 21:00 Doxazosin Mesylate (Cardura) 8 mg BID PO Last administered on 05/31/19 08:25; Admin Dose 8 MG; Start 05/29/19 at 21:00 Famotidine (Pepcid) 20 mg Q12 PO Last administered on 05/31/19 08:25; Admin Dose 20 MG; Start 05/29/19 at 21:00 Hydralazine HCl (Apresoline) 100 mg Q8 PO Last administered on 05/30/19 23:56; Admin Dose 100 MG; Start 05/29/19 at 22:00 Lisinopril (Zestril) 40 mg BID PO Last administered on 05/31/19 08:25; Admin Dose 40 MG; Start 05/29/19 at 21:00 Metoprolol Tartrate (Lopressor) 200 mg BID PO Last administered on 05/31/19 08:24; Admin Dose 200 MG; Start 05/29/19 at 21:00 Nifedipine (Procardia) 20 mg Q6 PO Last administered on 05/30/19 06:03; Admin D ose 20 MG; Start 05/30/19 at 00:00 Tramadol HCl (Ultram) 50 mg Q6H PRN PO MODERATE PAIN LEVEL 4-6 Last administered on 05/29/19at 21:11; Admin Dose 50 MG; Start 05/29/19 at 21:15 Trimethobenzamide HCl (Tigan) 200 mg Q6H PRN IM NAUSEA AND/OR VOMITING; Start 05/30/19 at 15:00 Ondansetron HCl 8 mg/Sodium Chloride 54 ml @ 216 mls/hr Q6H PRN IV NAUSEA AND/OR VOMITING; Start 05/30/19 at 15:30 Apixaban (Eliquis) 2.5 mg BID PO Last administered on 05/31/19at 08:23; Admin Dose 2.5 MG; Start 05/30/19 at 21:00 Spironolactone (Aldactone) 100 mg QAM PO ; Start 05/31/19 at 09:00; Status VALENTINO TATE MD May 31, 2019 08:47
--- NOTE | 2019-05-31 13:18 | PN ---
Date/Time of Note Date/Time of Note DATE: 05/31/19 TIME: 13:17 Assessment/Plan VTE Prophylaxis Risk score (from Ns)>0 risk: 9 SCD applied (from Ns): No SCD contraindicated: other Pharmacological prophylaxis: apixaban Lines/Catheters IV [facility]from [facility] Urinary Cath still in place: No Assessment/Plan Hospital Course S: Patient stated some nausea and vomiting symptoms, however nursing staff stating patient is somewhat confused and was able to work with physical therapist fairly well today. Patient taking her medications as well. O: VS - see below PE: Gen: Morbidly obese woman lying supine in bed, still somewhat lethargic at times but answering questions Eyes: Slightly injected conjunctivae. Normal pupils ENT: Normal External Ears, Nose and Mouth. Moist mucous membranes. Neck: No meningismus. No lymphadenopathy. Resp: Clear to auscultation bilaterally. Cardio: Regular rate and rhythm, no murmurs appreciated. Abd: Soft, obese, nondistended, normal bowel sounds Ext: No lower extremity edema bilaterally Neuro: no focal deficits MRI abd: IMPRESSION: 1. Hepatosplenomegaly and mild hepatic steatosis. 2. No evidence of adrenal nodule or mass. 3. No evidence of bowel obstruction, mass, lymphadenopathy, or acute inflammatory process. Assessment/Plan: 39-year-old morbidly obese woman with history of HTN who comes in with decreased p.o. intake, lethargy preceded by delirium and nausea and vomiting. 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 #Encephalopathy-had been slowly improving the last few days as patient answers slightly more questions now in [place], however today patient again became more lethargic and speech therapy eval could not be performed. MRI brain earlier showed several new and old infarcts concerning for central embolic source. There there apparently was small frontal bleed which may be hemorrhagic infarct- TTE done without evidence of vegetations or thrombus - HIV negative - No concern for infectious meningitis based on LP, patient presently off antibiotics. Repeat head CT on May 20 showed some improvement in the frontal bleed- May have been due to uncontrolled hypertension. -For now continue to limit sedation as much as possible, continue PT and OT. -Also follow-up further ST eval's # Hypertension: Much improved the last few days- Appreciate endocrinology consult, patient currently being worked up for other possible etiologies of secondary hypertension such as hyperaldosteronism, also considering pheo chromocytoma and renal artery stenosis (although these are less likely). - Continue metoprolol (maxed), lisinopril (maxed), hydralazine (maxed), spironolactone (frequency lowered today), nifedipene. - Follow further recommendations from endocrinology team to further investigate any potential hyperaldosteronism source/etiology of her hypertension-MRI abdomen results noted. - Fractionated catecholamines still pending as well, follow-up on these #Upper extremity thrombosis- L upper superficial vein thrombosis involving cephalic vein. -For now continue PO Eliquis 2.5 mg twice daily, no aspirin. -Consider repeat left upper extremity ultrasound to see if there is been resolution of this superficial clot #G[place]EN[place] - Likely due to iatrogenic vancomycin toxicity-resolved #Respiratory failure- Intubated earlier this admission due to poor mental status, but self extubated on May 15, 2019. - Now resolved, monitor for now # DVT prophylaxis: SCDs Dispo: Continue PT, OT, and speech therapy- ARU eval also pending Result Diagram: 05/29/19 0554 05/29/19 0554 Results 24hrs Laboratory Tests Test 05/30/19 17:43 05/30/19 21:00 05/31/19 04:31 05/31/19 07:55 Bedside Glucose 130 108 113 Phosphorus Level 5.9 H Magnesium Level 2.1 Test 05/31/19 12:03 05/31/19 12:26 Lab Scanned Report REFERENCE LAB Bedside Glucose 140 Exam/Review of Systems Exam Vitals Vital Signs Date Temp Pulse Resp B/P (MAP) Pulse Ox O2 O2 Flow FiO2 Time Delivery Rate 05/31/19 98.1 74 20 147/65 98 07:28 (92) 05/29/19 Room Air 17:37 05/28/19 21 00:11 Intake and Output 05/30/19 05/30/19 05/31/19 1515:00 23:00 07:00 IntakeIntake Total 240 ml BalanceBalance 240 ml Results Results 24hrs Laboratory Tests Test 05/30/19 17:43 05/30/19 21:00 05/31/19 04:31 05/31/19 07:55 Bedside Glucose 130 108 113 Phosphorus Level 5.9 H Magnesium Level 2.1 Test 05/31/19 12:03 05/31/19 12:26 Lab Scanned Report REFERENCE LAB Bedside Glucose 140 Medications Medication Current Medications IV Flush (NS 3 ml) 3 ml PER PROTOCOL IV ; Start 05/09/19 at 00:00 Docusate Sodium (Colace) 100 mg Q12H PRN PO .CONSTIPATION; Start 05/09/19 at 00:00 Magnesium Hydroxide (Milk Of Mag) 30 ml DAILY PRN PO .CONSTIPATION; Start 05/09/19 at 00:00 Nitroglycerin (Nitroglycerin (Sl Tab) 0.4 Mg) 1 tab Q5M PRN SL ANGINA; Start 05/09/19 at 00:00 Miscellaneous Information 1 ea NOTE XX ; Start 05/09/19 at 17:00 Glucose (Glutose) 15 gm Q15M PRN PO DECREASED GLUCOSE; Start 05/09/19 at 17:00 Glucose (Glutose) 22.5 gm Q15M PRN PO DECREASED GLUCOSE; Start 05/09/19 at 17:00 Dextrose (D50w Syringe) 25 ml Q15M PRN IV DECREASED GLUCOSE; Start 05/09/19 at 17:00 Dextrose (D50w Syringe) 50 ml Q15M PRN IV DECREASED GLUCOSE; Start 05/09/19 at 17:00 Glucagon (Glucagen) 1 mg Q15M PRN IM DECREASED GLUCOSE; Start 05/09/19 at 17:00 Glucose (Glutose) 15 gm Q15M PRN BUCCAL DECREASED GLUCOSE; Start 05/09/19 at 17:00 Insulin Glargine (Lantus) 10 units DAILY@2000 SC Last administered on 05/30/19at 21:15; Admin Dose 10 UNITS; Start 05/11/19 at 20:00 IV Flush (NS 10 ml) 10 ml PRN PRN IV IV PROTOCOL; Start 05/13/19 at 14:00 Eye Lubricant (Artificial Tears Oph) 1 drop TID BOTH EYES Last administered on 05/31/19at 13:09; Admin Dose 1 DROP; Start 05/20/19 at 13:00 Diagnostic Test (Pha) (Accu-Chek) 1 ea 02 XX Last administered on 05/28/19at 01:56; Admin Dose 1 EA; Start 05/28/19 at 02:00 Insulin Aspart (Novolog Insulin Pen) NOVOLOG *MODERATE* ALGORITHM WITH MEALS BEDTIME SC Last administered on 05/30/19at 12:28; Admin Dose 2 UNIT; Start 05/27/19 at 21:00 Acetaminophen (Tylenol Liquid) 650 mg Q6H PRN PO .PAIN 1-3 OR TEMP; Start 05/30/19 at 00:00 Atorvastatin Calcium (Lipitor) 80 mg HS PO Last administered on 05/30/19 21:04; Admin Dose 80 MG; Start 05/29/19 at 21:00 Doxazosin Mesylate (Cardura) 8 mg BID PO Last administered on 05/31/19 08:25; Admin Dose 8 MG; Start 05/29/19 at 21:00 Famotidine (Pepcid) 20 mg Q12 PO Last administered on 05/31/19 08:25; Admin Dose 20 MG; Start 05/29/19 at 21:00 Hydralazine HCl (Apresoline) 100 mg Q8 PO Last administered on 05/31/19 13:09; Admin Dose 100 MG; Start 05/29/19 at 22:00 Lisinopril (Zestril) 40 mg BID PO Last administered on 05/31/19 08:25; Admin Dose 40 MG; Start 05/29/19 at 21:00 Metoprolol Tartrate (Lopressor) 200 mg BID PO Last administered on 05/31/19 0 8:24; Admin Dose 200 MG; Start 05/29/19 at 21:00 Nifedipine (Procardia) 20 mg Q6 PO Last administered on 05/31/19 13:09; Admin Dose 20 MG; Start 05/30/19 at 00:00 Tramadol HCl (Ultram) 50 mg Q6H PRN PO MODERATE PAIN LEVEL 4-6 Last administered on 05/29/19 21:11; Admin Dose 50 MG; Start 05/29/19 at 21:15 Trimethobenzamide HCl (Tigan) 200 mg Q6H PRN IM NAUSEA AND/OR VOMITING; Start 05/30/19 at 15:00 Ondansetron HCl 8 mg/Sodium Chloride 54 ml @ 216 mls/hr Q6H PRN IV NAUSEA AND/OR VOMITING; Start 05/30/19 at 15:30 Apixaban (Eliquis) 2.5 mg BID PO Last administered on 05/31/19 08:23; Admin Dose 2.5 MG; Start 05/30/19 at 21:00 Spironolactone (Aldactone) 100 mg QAM PO ; Start 05/31/19 at 09:00 DAMIEN CHOUDHARY May 31, 2019 13:18
[2019-05-31 13:21] VITALS: BP 131/78; PULSE 65; RESP 20
[2019-05-31 20:00] VITALS: BP 107/59; PULSE 82; RESP 19
[2019-05-31] MEDS: ATORVASTATIN 80 MG TAB PO SCH (21:09)
[2019-05-31] MEDS: INSULIN GLARGINE [LANTus] (100 UNITS/ML) SYG SC SCH (21:11)
[2019-05-31 22:00] VITALS: BP 129/70; PULSE 59
[2019-06-01] MEDS: ACCU-CHEK XX SCH (02:00)
[2019-06-01 02:23] VITALS: BP 120/61; PULSE 77; RESP 18
[2019-06-01 07:40] VITALS: BP 149/72; PULSE 77; RESP 15
[2019-06-01] MEDS: INSULIN ASPART [NOVOLOG] 3 ML PEN SC SCH ×4 (08:00→21:00)
[2019-06-01] MEDS: APIXABAN 5 MG TABLET PO SCH ×2 (09:05→21:12)
[2019-06-01] MEDS: ARTIFICIAL TEARS 15 ML OPH BOTH EYES SCH ×3 (09:05→21:13)
[2019-06-01] MEDS: SPIRONOLACTONE 50 MG TAB PO SCH (09:05)
[2019-06-01] MEDS: FAMOTIDINE 20 MG TAB PO SCH ×2 (09:06→21:12)
[2019-06-01] MEDS: NIFEdipine (XL) 90 MG TAB PO SCH (09:07)
[2019-06-01] MEDS: METOPROLOL 100 MG TAB PO SCH ×2 (09:07→21:12)
[2019-06-01] MEDS: DOXAZOSIN 4 MG TAB PO SCH ×2 (09:07→21:12)
[2019-06-01] MEDS: LISINOPRIL 20 MG TAB PO SCH (09:09)
[2019-06-01] MEDS ORDERED: LACTATED RINGER'S 500 ML IV ONE (13:00)
--- NOTE | 2019-06-01 13:02 | CONS ---
Assessment/Plan Assessment/Plan Problems: (1) Hypertension Status: Chronic Comment: Plasma catecholamines have been reported out to the chart. They are not elevated. Problem is that this was done during the acute phase and may have represented when she was acutely ill. Will go ahead and repeat them now doing both urine and plasma to see where we are with this. Please note if we stipulate that she does have a pheochromocytoma which was not visible on the screening exam of the abdomen then no treatment is high dose alpha blockade which the patient is already on. I doubt that she has an intrathoracic pheochromocytoma or other extra typical site. For now we will repeat the evaluation now the patient is stabilized. Please note there are number things and can cause a false positive for this test which include but are not limited to treat with the medication Aldomet, treat with medication buspirone, and acute illness. Qualifiers: Hypertension type: unspecified Qualified Codes: I10 - Essential (primary) hypertension (2) Diabetes mellitus type 2 in obese Status: Chronic Comment: Adequate control Consultation Date/Type/Reason Admit Date/Time May 08, 2019 at 23:21 Initial Consult Date 05/19/19 Type of Consult Endocrinology Reason for Consultation Accelerated hypertension; diabetes mellitus type 2; status post multiple CVA with one hemorrhagic conversion Requesting Provider: DAMIEN CHOUDHARY Date/Time of Note DATE: 06/01/19 TIME: 12:59 24 HR Interval Summary Free Text/Dictation Patient again conversant wants to be ambulatory Exam/Review of Systems Exam Vitals Vital Signs Date Temp Pulse Resp B/P (MAP) Pulse Ox O2 O2 Flow FiO2 Time Delivery Rate 06/01/19 98.3 77 15 149/72 98 07:40 (97) 05/29/19 Room Air 17:37 Intake and Output 05/31/19 05/31/19 06/01/19 1515:00 23:00 07:00 IntakeIntake Total 320 ml 120 ml BalanceBalance 320 ml 120 ml Exam No change in examination Results Result Diagram: 06/01/19 0438 06/01/19 0438 Results 24hrs Laboratory Tests Test 05/31/19 17:27 05/31/19 21:02 06/01/19 02:29 06/01/19 04:38 Bedside Glucose 126 193 108 White Blood Count 5.3 Red Blood Count 5.79 H Hemoglobin 16.5 H Hematocrit 49.3 H Mean Corpuscular Volume 85.1 Mean Corpuscular 28.5 L Hemoglobin Mean Corpuscular 33.5 Hemoglobin Concent Red Cell Distribution 13.7 Width Platelet Count 298 Mean Platelet Volume 11.6 H Immature Granulocytes % 0.400 Neutrophils % 53.1 Lymphocytes % 33.3 Monocytes % 8.8 Eosinophils % 3.8 Basophils % 0.6 Nucleated Red Blood 0.0 Cells % Immature Granulocytes # 0.020 Neutrophils # 2.8 Lymphocytes # 1.8 Monocytes # 0.5 Eosinophils # 0.2 Basophils # 0.0 Nucleated Red Blood 0.0 Cells # Sodium Level 140 Potassium Level 4.5 Chloride Level 101 Carbon Dioxide Level 25 Anion Gap 14 H Blood Urea Nitrogen 48 H Creatinine 1.53 H Est Glomerular Filtrat 37 L Rate mL/min Glucose Level 106 Calcium Level 10.3 H Test 06/01/19 08:19 Bedside Glucose 108 Medications Medication Current Medications IV Flush (NS 3 ml) 3 ml PER PROTOCOL IV ; Start 05/09/19 at 00:00 Docusate Sodium (Colace) 100 mg Q12H PRN PO .CONSTIPATION; Start 05/09/19 at 00:00 Magnesium Hydroxide (Milk Of Mag) 30 ml DAILY PRN PO .CONSTIPATION; Start 05/09/19 at 00:00 Nitroglycerin (Nitroglycerin (Sl Tab) 0.4 Mg) 1 tab Q5M PRN SL ANGINA; Start 05/09/19 at 00:00 Miscellaneous Information 1 ea NOTE XX ; Start 05/09/19 at 17:00 Glucose (Glutose) 15 gm Q15M PRN PO DECREASED GLUCOSE; Start 05/09/19 at 17:00 Glucose (Glutose) 22.5 gm Q15M PRN PO DECREASED GLUCOSE; Start 05/09/19 at 17:00 Dextrose (D50w Syringe) 25 ml Q15M PRN IV DECREASED GLUCOSE; Start 05/09/19 at 17:00 Dextrose (D50w Syringe) 50 ml Q15M PRN IV DECREASED GLUCOSE; Start 05/09/19 at 17:00 Glucagon (Glucagen) 1 mg Q15M PRN IM DECREASED GLUCOSE; Start 05/09/19 at 17:00 Glucose (Glutose) 15 gm Q15M PRN BUCCAL DECREASED GLUCOSE; Start 05/09/19 at 17:00 Insulin Glargine (Lantus) 10 units DAILY@2000 SC Last administered on 05/31/19 21:11; Admin Dose 10 UNITS; Start 05/11/19 at 20:00 IV Flush (NS 10 ml) 10 ml PRN PRN IV IV PROTOCOL; Start 05/13/19 at 14:00 Eye Lubricant (Artificial Tears Oph) 1 drop TID BOTH EYES Last administered on 06/01/19 12:46; Admin Dose 1 DROP; Start 05/20/19 at 13:00 Diagnostic Test (Pha) (Accu-Chek) 1 ea 02 XX Last administered on 05/28/19 01:56; Admin Dose 1 EA; Start 05/28/19 at 02:00 Insulin Aspart (Novolog Insulin Pen) NOVOLOG *MODERATE* ALGORITHM WITH MEALS BEDTIME SC Last administered on 05/31/19 21:11; Admin Dose 1 UNIT; Start 05/27/19 at 21:00 Acetaminophen (Tylenol Liquid) 650 mg Q6H PRN PO .PAIN 1-3 OR TEMP; Start 05/30/19 at 00:00 Atorvastatin Calcium (Lipitor) 80 mg HS PO Last administered on 05/31/19 21:09; Admin Dose 80 MG; Start 05/29/19 at 21:00 Doxazosin Mesylate (Cardura) 8 mg BID PO Last administered on 06/01/19 09:07; Admin Dose 8 MG; Start 05/29/19 at 21:00 Famotidine (Pepcid) 20 mg Q12 PO Last administered on 06/01/19 09:06; Admin Dose 20 MG; Start 05/29/19 at 21:00 Hydralazine HCl (Apresoline) 100 mg Q8 PO Last administered on 06/01/19 06:44; Admin Dose 100 MG; Start 05/29/19 at 22:00 Lisinopril (Zestril) 40 mg BID PO Last administered on 06/01/19 09:09; Admin Dose 40 MG; Start 05/29/19 at 21:00; Status Hold Metoprolol Tartrate (Lopressor) 200 mg BID PO Last administered on 06/01/19 09:07; Admin Dose 200 MG; Start 05/29/19 at 21:00 Tramadol HCl (Ultram) 50 mg Q6H PRN PO MODERATE PAIN LEVEL 4-6 Last administered on 6/30/19at 21:11; Admin Dose 50 MG; Start 05/29/19 at 21:15 Trimethobenzamide HCl (Tigan) 200 mg Q6H PRN IM NAUSEA AND/OR VOMITING; Start 05/30/19 at 15:00 Ondansetron HCl 8 mg/Sodium Chloride 54 ml @ 216 mls/hr Q6H PRN IV NAUSEA AND/OR VOMITING; Start 05/30/19 at 15:30 Apixaban (Eliquis) 2.5 mg BID PO Last administered on 06/01/19at 09:05; Admin Dose 2.5 MG; Start 05/30/19 at 21:00 Spironolactone (Aldactone) 100 mg QAM PO Last administered on 06/01/19at 09:05; Admin Dose 100 MG; Start 05/31/19 at 09:00 Nifedipine (Procardia Xl) 90 mg DAILY PO Last administered on 06/01/19at 09:07; Admin Dose 90 MG; Start 06/01/19 at 09:00 Sodium Chloride 1,000 ml @ 75 mls/hr [id number] IV ; Start 06/01/19 at 13:00 Lactated Ringer's 500 ml @ 500 mls/hr Q1H ONCE IV ; Start 06/01/19 at 13:00; Stop 06/01/19 at 13:59; Status VALENTINO TATE MD Jun 01, 2019 13:01
--- NOTE | 2019-06-01 13:12 | PN ---
Date/Time of Note Date/Time of Note DATE: 06/01/19 TIME: 13:05 Assessment/Plan VTE Prophylaxis Risk score (from Ns)>0 risk: 8 SCD applied (from Ns): No SCD contraindicated: other Pharmacological prophylaxis: apixaban Lines/Catheters IV [facility]ter Type ([facility] Saline Lock Urinary Cath still in place: No Assessment/Plan Hospital Course S: Patient a bit more awake and alert today. Tolerating diet. O: VS - see below PE: Gen: Morbidly obese woman lying supine in bed, still somewhat lethargic at times but answering questions Eyes: Slightly injected conjunctivae. Normal pupils ENT: Normal External Ears, Nose and Mouth. Moist mucous membranes. Neck: No meningismus. No lymphadenopathy. Resp: Clear to auscultation bilaterally. Cardio: Regular rate and rhythm, no murmurs appreciated. Abd: Soft, obese, nondistended, normal bowel sounds Ext: No lower extremity edema bilaterally Neuro: no focal deficits MRI abd: IMPRESSION: 1. Hepatosplenomegaly and mild hepatic steatosis. 2. No evidence of adrenal nodule or mass. 3. No evidence of bowel obstruction, mass, lymphadenopathy, or acute inflammatory process. Assessment/Plan: 39-year-old morbidly obese woman with history of HTN who comes in with decreased p.o. intake, lethargy preceded by delirium and nausea and vomiting. 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 #Encephalopathy-had been slowly improving the last few days as patient answers slightly more questions now in Slovenian, however today patient again became more lethargic and speech therapy eval could not be performed. MRI brain earlier showed several new and old infarcts concerning for central embolic source. There there apparently was small frontal bleed which may be hemorrhagic infarct- TTE done without evidence of vegetations or thrombus - HIV negative - No concern for infectious meningitis based on LP, patient presently off antibiotics. Repeat head CT on May 20 showed some improvement in the frontal bleed- May have been due to uncontrolled hypertension. -For now continue to limit sedation as much as possible, continue PT and OT. -Also follow-up further ST eval's # Hypertension: Much improved the last few days- Appreciate endocrinology co nsult, patient currently being worked up for other possible etiologies of secondary hypertension such as hyperaldosteronism, also considering pheochromocytoma and renal artery stenosis (although these are less likely). - Continue metoprolol (maxed), but holding lisinopril for now because of acute renal insufficiency, continue hydralazine (maxed), spironolactone (frequency lowered today), nifedipene. - Follow further recommendations from endocrinology team to further investigate any potential hyperaldosteronism source/etiology of her hypertension-MRI abdomen results noted. #Upper extremity thrombosis- L upper superficial vein thrombosis involving cephalic vein. -For now continue PO Eliquis 2.5 mg twice daily, no aspirin. -Consider repeat left upper extremity ultrasound to see if there is been resolution of this superficial clot #GARDENIA - Likely due to iatrogenic vancomycin toxicity-resolved #Respiratory failure- Intubated earlier this admission due to poor mental status, but self extubated on May 15, 2019. - Now resolved, monitor for now # DVT prophylaxis: SCDs Dispo: Continue PT, OT, and speech therapy-patient tentatively accepted to ARU, however waiting for insurance authorization for this. In the meantime case management looking for SNF facilities as well. Result Diagram: 06/01/19 0438 06/01/19 0438 Results 24hrs Laboratory Tests Test 05/31/19 17:27 05/31/19 21:02 06/01/19 02:29 06/01/19 04:38 Bedside Glucose 126 193 108 White Blood Count 5.3 Red Blood Count 5.79 H Hemoglobin 16.5 H Hematocrit 49.3 H Mean Corpuscular Volume 85.1 Mean Corpuscular 28.5 L Hemoglobin Mean Corpuscular 33.5 Hemoglobin Concent Red Cell Distribution 13.7 Width Platelet Count 298 Mean Platelet Volume 11.6 H Immature Granulocytes % 0.400 Neutrophils % 53.1 Lymphocytes % 33.3 Monocytes % 8.8 Eosinophils % 3.8 Basophils % 0.6 Nucleated Red Blood 0.0 Cells % Immature Granulocytes # 0.020 Neutrophils # 2.8 Lymphocytes # 1.8 Monocytes # 0.5 Eosinophils # 0.2 Basophils # 0.0 Nucleated Red Blood 0.0 Cells # Sodium Level 140 Potassium Level 4.5 Chloride Level 101 Carbon Dioxide Level 25 Anion Gap 14 H Blood Urea Nitrogen 48 H Creatinine 1.53 H Est Glomerular Filtrat 37 L Rate mL/min Glucose Level 106 Calcium Level 10.3 H Test 06/01/19 08:19 06/01/19 12:45 Bedside Glucose 108 133 Exam/Review of Systems Exam Vitals Vital Signs Date Temp Pulse Resp B/P (MAP) Pulse Ox O2 O2 Flow FiO2 Time Delivery Rate 06/01/19 98.3 77 15 149/72 98 07:40 (97) 05/29/19 Room Air 17:37 Intake and Output 05/31/19 05/31/19 06/01/19 1515:00 23:00 07:00 IntakeIntake Total 320 ml 120 ml BalanceBalance 320 ml 120 ml Results Results 24hrs Laboratory Tests Test 05/31/19 17:27 05/31/19 21:02 06/01/19 02:29 06/01/19 04:38 Bedside Glucose 126 193 108 White Blood Count 5.3 Red Blood Count 5.79 H Hemoglobin 16.5 H Hematocrit 49.3 H Mean Corpuscular Volume 85.1 Mean Corpuscular 28.5 L Hemoglobin Mean Corpuscular 33.5 Hemoglobin Concent Red Cell Distribution 13.7 Width Platelet Count 298 Mean Platelet Volume 11.6 H Immature Granulocytes % 0.400 Neutrophils % 53.1 Lymphocytes % 33.3 Monocytes % 8.8 Eosinophils % 3.8 Basophils % 0.6 Nucleated Red Blood 0.0 Cells % Immature Granulocytes # 0.020 Neutrophils # 2.8 Lymphocytes # 1.8 Monocytes # 0.5 Eosinophils # 0.2 Basophils # 0.0 Nucleated Red Blood 0.0 Cells # Sodium Level 140 Potassium Level 4.5 Chloride Level 101 Carbon Dioxide Level 25 Anion Gap 14 H Blood Urea Nitrogen 48 H Creatinine 1.53 H Est Glomerular Filtrat 37 L Rate mL/min Glucose Level 106 Calcium Level 10.3 H Test 06/01/19 08:19 06/01/19 12:45 Bedside Glucose 108 133 Medications Medication Current Medications IV Flush (NS 3 ml) 3 ml PER PROTOCOL IV ; Start 05/09/19 at 00:00 Docusate Sodium (Colace) 100 mg Q12H PRN PO .CONSTIPATION; Start 05/09/19 at 00:00 Magnesium Hydroxide (Milk Of Mag) 30 ml DAILY PRN PO .CONSTIPATION; Start 05/09/19 at 00:00 Nitroglycerin (Nitroglycerin (Sl Tab) 0.4 Mg) 1 tab Q5M PRN SL ANGINA; Start 05/09/19 at 00:00 Miscellaneous Information 1 ea NOTE XX ; Start 05/09/19 at 17:00 Glucose (Glutose) 15 gm Q15M PRN PO DECREASED GLUCOSE; Start 05/09/19 at 17:00 Glucose (Glutose) 22.5 gm Q15M PRN PO DECREASED GLUCOSE; Start 05/09/19 at 17:00 Dextrose (D50w Syringe) 25 ml Q15M PRN IV DECREASED GLUCOSE; Start 05/09/19 at 17:00 Dextrose (D50w Syringe) 50 ml Q15M PRN IV DECREASED GLUCOSE; Start 05/09/19 at 17:00 Glucagon (Glucagen) 1 mg Q15M PRN IM DECREASED GLUCOSE; Start 05/09/19 at 17:00 Glucose (Glutose) 15 gm Q15M PRN BUCCAL DECREASED GLUCOSE; Start 05/09/19 at 17:00 Insulin Glargine (Lantus) 10 units DAILY@2000 SC Last administered on 05/31/19 21:11; Admin Dose 10 UNITS; Start 05/11/19 at 20:00 IV Flush (NS 10 ml) 10 ml PRN PRN IV IV PROTOCOL; Start 05/13/19 at 14:00 Eye Lubricant (Artificial Tears Oph) 1 drop TID BOTH EYES Last administered on 06/01/19at 12:46; Admin Dose 1 DROP; Start 05/20/19 at 13:00 Diagnostic Test (Pha) (Accu-Chek) 1 ea 02 XX Last administered on 05/28/19at 01:56; Admin Dose 1 EA; Start 05/28/19 at 02:00 Insulin Aspart (Novolog Insulin Pen) NOVOLOG *MODERATE* ALGORITHM WITH MEALS BEDTIME SC Last administered on 05/31/19 21:11; Admin Dose 1 UNIT; Start 05/27/19 at 21:00 Acetaminophen (Tylenol Liquid) 650 mg Q6H PRN PO .PAIN 1-3 OR TEMP; Start 05/30/19 at 00:00 Atorvastatin Calcium (Lipitor) 80 mg HS PO Last administered on 05/31/19 21:09; Admin Dose 80 MG; Start 05/29/19 at 21:00 Doxazosin Mesylate (Cardura) 8 mg BID PO Last administered on 06/01/19 09:07; Admin Dose 8 MG; Start 05/29/19 at 21:00 Famotidine (Pepcid) 20 mg Q12 PO Last administered on 06/01/19 09:06; Admin Dose 20 MG; Start 05/29/19 at 21:00 Hydralazine HCl (Apresoline) 100 mg Q8 PO Last administered on 06/01/19 06:44; Admin Dose 100 MG; Start 05/29/19 at 22:00 Lisinopril (Zestril) 40 mg BID PO Last administered on 06/01/19 09:09; Admin Dose 40 MG; Start 05/29/19 at 21:00; Status Hold Metoprolol Tartrate (Lopressor) 200 mg BID PO Last administered on 06/01/19 09:07; Admin Dose 200 MG; Start 05/29/19 at 21:00 Tramadol HCl (Ultram) 50 mg Q6H PRN PO MODERATE PAIN LEVEL 4-6 Last administered on 05/29/19 21:11; Admin Dose 50 MG; Start 05/29/19 at 21:15 Trimethobenzamide HCl (Tigan) 200 mg Q6H PRN IM NAUSEA AND/OR VOMITING; Start 05/30/19 at 15:00 Ondansetron HCl 8 mg/Sodium Chloride 54 ml @ 216 mls/hr Q6H PRN IV NAUSEA AND/OR VOMITING; Start 05/30/19 at 15:30 Apixaban (Eliquis) 2.5 mg BID PO Last administered on 06/01/19 09:05; Admin Dose 2.5 MG; Start 05/30/19 at 21:00 Spironolactone (Aldactone) 100 mg QAM PO Last administered on 06/01/19 09:05; Admin Dose 100 MG; Start 05/31/19 at 09:00 Nifedipine (Procardia Xl) 90 mg DAILY PO Last administered on 06/01/19 09:07; Admin Dose 90 MG; Start 06/01/19 at 09:00 Sodium Chloride 1,000 ml @ 75 mls/hr [id number] IV ; Start 06/01/19 at 13:00 Lactated Ringer's 500 ml @ 500 mls/hr Q1H ONCE IV ; Start 06/01/19 at 13:00; Stop 06/01/19 at 13:59 DAMIEN CHOUDHARY Jun 01, 2019 13:12
[2019-06-01 14:15] VITALS: BP 126/79; PULSE 69; RESP 16
[2019-06-01] MEDS: SOD CHLORIDE 0.45% 1,000 ML IV SCH (15:27)
[2019-06-01 19:47] VITALS: BP 117/57; PULSE 75; RESP 16
[2019-06-01] MEDS: ATORVASTATIN 80 MG TAB PO SCH (21:12)
[2019-06-01] MEDS: INSULIN GLARGINE [LANTus] (100 UNITS/ML) SYG SC SCH (21:18)
[2019-06-02] MEDS: SOD CHLORIDE 0.45% 1,000 ML IV SCH ×2 (01:20→05:47)
[2019-06-02] MEDS: ACCU-CHEK XX SCH (01:20)
[2019-06-02 01:40] VITALS: BP 100/57; PULSE 74; RESP 16
[2019-06-02 07:45] VITALS: BP 134/74; PULSE 75; RESP 14
[2019-06-02] MEDS: INSULIN ASPART [NOVOLOG] 3 ML PEN SC SCH ×2 (08:00→12:00)
[2019-06-02] MEDS: NIFEdipine (XL) 90 MG TAB PO SCH (08:54)
[2019-06-02] MEDS: APIXABAN 5 MG TABLET PO SCH (08:54)
[2019-06-02] MEDS: FAMOTIDINE 20 MG TAB PO SCH (08:55)
[2019-06-02] MEDS: SPIRONOLACTONE 50 MG TAB PO SCH (08:55)
[2019-06-02] MEDS: DOXAZOSIN 4 MG TAB PO SCH (08:56)
[2019-06-02] MEDS: METOPROLOL 100 MG TAB PO SCH (08:57)
[2019-06-02] MEDS: ARTIFICIAL TEARS 15 ML OPH BOTH EYES SCH ×2 (08:58→12:22)
--- NOTE | 2019-06-02 10:55 | CONS ---
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 After that the patient can be m tanja to rehabilitation facility. Please note with the usage of the nifedipine will probably can go down on the dosage of the BETO inhibitor to 40 mg once a day, and also decrease the Aldactone to 25 mg a day Qualifiers: Hypertension type: unspecified Qualified Codes: I10 - Essential (primary) hypertension Consultation Date/Type/Reason Admit Date/Time May 08, 2019 at 23:21 Initial Consult Date 05/19/19 Type of Consult Endocrinology Reason for Consultation Accelerated hypertension; diabetes mellitus type 2; hyperlipidemia; status post multiple CVA with one hemorrhagic conversion Requesting Provider: DAMIEN CHOUDHARY Date/Time of Note DATE: 06/02/19 TIME: 10:53 24 HR Interval Summary Free Text/Dictation Patient without new complaints Exam/Review of Systems Exam Vitals Vital Signs Date Temp Pulse Resp B/P (MAP) Pulse Ox O2 O2 Flow FiO2 Time Delivery Rate 06/02/19 97.4 75 14 134/74 98 07:45 (94) 06/01/19 Room Air 14:15 Intake and Output 06/01/19 06/01/19 06/02/19 1515:00 23:00 07:00 IntakeIntake Total 840 ml 1070 ml 850 ml OutputOutput Total 700 ml BalanceBalance 840 ml 1070 ml 150 ml Constitutional: alert, oriented Respiratory: clear to auscultation, normal air movement Cardiovascular: regular rate and rhythm, nl pulses Gastrointestinal: soft, nl liver, spleen, non-tender Results Result Diagram: 06/02/19 0456 06/02/19 0455 Results 24hrs Laboratory Tests Test 06/01/19 12:45 06/01/19 17:35 06/01/19 21:17 06/02/19 04:55 Bedside Glucose 133 110 130 Sodium Level 139 Potassium Level 4.7 Chloride Level 103 Carbon Dioxide Level 23 Anion Gap 13 Blood Urea Nitrogen 36 #H Creatinine 1.16 H Est Glomerular Filtrat 51 L Rate mL/min Glucose Level 108 Calcium Level 10.3 H Phosphorus Level 4.5 Magnesium Level 1.9 Test 06/02/19 04:56 06/02/19 08:51 White Blood Count 5.0 Red Blood Count 5.56 H Hemoglobin 15.7 Hematocrit 48.2 H Mean Corpuscular Volume 86.7 Mean Corpuscular 28.2 L Hemoglobin Mean Corpuscular 32.6 Hemoglobin Concent Red Cell Distribution 13.4 Width Platelet Count 292 Mean Platelet Volume 11.1 H Immature Granulocytes % 0.200 Neutrophils % 49.9 Lymphocytes % 35.2 Monocytes % 8.9 Eosinophils % 5.0 Basophils % 0.8 Nucleated Red Blood 0.0 Cells % Immature Granulocytes # 0.010 Neutrophils # 2.5 Lymphocytes # 1.8 Monocytes # 0.5 Eosinophils # 0.3 Basophils # 0.0 Nucleated Red Blood 0.0 Cells # Bedside Glucose 99 Medications Medication Current Medications IV Flush (NS 3 ml) 3 ml PER PROTOCOL IV ; Start 05/09/19 at 00:00 Docusate Sodium (Colace) 100 mg Q12H PRN PO .CONSTIPATION; Start 05/09/19 at 00:00 Magnesium Hydroxide (Milk Of Mag) 30 ml DAILY PRN PO .CONSTIPATION; Start 09/17 at 00:00 Nitroglycerin (Nitroglycerin (Sl Tab) 0.4 Mg) 1 tab Q5M PRN SL ANGINA; Start 05/09/19 at 00:00 Miscellaneous Information 1 ea NOTE XX ; Start 05/09/19 at 17:00 Glucose (Glutose) 15 gm Q15M PRN PO DECREASED GLUCOSE; Start 05/09/19 at 17:00 Glucose (Glutose) 22.5 gm Q15M PRN PO DECREASED GLUCOSE; Start 05/09/19 at 17:00 Dextrose (D50w Syringe) 25 ml Q15M PRN IV DECREASED GLUCOSE; Start 05/09/19 at 17:00 Dextrose (D50w Syringe) 50 ml Q15M PRN IV DECREASED GLUCOSE; Start 05/09/19 at 17:00 Glucagon (Glucagen) 1 mg Q15M PRN IM DECREASED GLUCOSE; Start 05/09/19 at 17:00 Glucose (Glutose) 15 gm Q15M PRN BUCCAL DECREASED GLUCOSE; Start 05/09/19 at 17:00 Insulin Glargine (Lantus) 10 units DAILY@2000 SC Last administered on 06/01/19at 21:18; Admin Dose 10 UNITS; Start 05/11/19 at 20:00 IV Flush (NS 10 ml) 10 ml PRN PRN IV IV PROTOCOL; Start 05/13/19 at 14:00 Eye Lubricant (Artificial Tears Oph) 1 drop TID BOTH EYES Last administered on 06/02/19 08:58; Admin Dose 1 DROP; Start 05/20/19 at 13:00 Diagnostic Test (Pha) (Accu-Chek) 1 ea 02 XX Last administered on 05/28/19 01 :56; Admin Dose 1 EA; Start 05/28/19 at 02:00 Insulin Aspart (Novolog Insulin Pen) NOVOLOG *MODERATE* ALGORITHM WITH MEALS BEDTIME SC Last administered on 05/31/19 21:11; Admin Dose 1 UNIT; Start at 21:00 Acetaminophen (Tylenol Liquid) 650 mg Q6H PRN PO .PAIN 1-3 OR TEMP; Start 05/30/19 at 00:00 Atorvastatin Calcium (Lipitor) 80 mg HS PO Last administered on 06/01/19 21:12; Admin Dose 80 MG; Start 05/29/19 at 21:00 Doxazosin Mesylate (Cardura) 8 mg BID PO Last administered on 06/02/19 08:56; Admin Dose 8 MG; Start 05/29/19 at 21:00 Famotidine (Pepcid) 20 mg Q12 PO Last administered on 06/02/19 08:55; Admin Dose 20 MG; Start 05/29/19 at 21:00 Hydralazine HCl (Apresoline) 100 mg Q8 PO Last administered on 06/02/19 05:52; Admin Dose 100 MG; Start 05/29/19 at 22:00 Lisinopril (Zestril) 40 mg BID PO Last administered on 06/01/19 09:09; Admin Dose 40 MG; Start 05/29/19 at 21:00; Status Hold Metoprolol Tartrate (Lopressor) 200 mg BID PO Last administered on 06/02/19 08:57; Admin Dose 200 MG; Start 05/29/19 at 21:00 Tramadol HCl (Ultram) 50 mg Q6H PRN PO MODERATE PAIN LEVEL 4-6 Last administered on 05/29/19 21:11; Admin Dose 50 MG; Start 05/29/19 at 21:15 Trimethobenzamide HCl (Tigan) 200 mg Q6H PRN IM NAUSEA AND/OR VOMITING; Start 05/30/19 at 15:00 Ondansetron HCl 8 mg/Sodium Chloride 54 ml @ 216 mls/hr Q6H PRN IV NAUSEA AND/OR VOMITING; Start 05/30/19 at 15:30 Apixaban (Eliquis) 2.5 mg BID PO Last administered on 06/02/19at 08:54; Admin Dose 2.5 MG; Start 05/30/19 at 21:00 Spironolactone (Aldactone) 100 mg QAM PO Last administered on 06/02/19at 08:55; Admin Dose 100 MG; Start 05/31/19 at 09:00 Nifedipine (Procardia Xl) 90 mg DAILY PO Last administered on 06/02/19at 08:54; Admin Dose 90 MG; Start 06/01/19 at 09:00 Sodium Chloride 1,000 ml @ 75 mls/hr [id number] IV Last administered on 06/02/19at 05:47; Admin Dose 75 MLS/HR; Start 06/01/19 at 13:00 Lactated Ringer's 500 ml @ 500 mls/hr Q1H ONCE IV ; Start 06/02/19 at 11:00; Stop 06/02/19 at 11:59; Status VALENTINO TATE MD Jun 02, 2019 10:55
[2019-06-02] MEDS ORDERED: LACTATED RINGER'S 500 ML IV ONE (11:00)
--- NOTE | 2019-06-02 12:07 | PDOCDIS ---
Discharge Instructions CONDITION [id number] Patient Condition: [id number] Stable DAMIEN CHOUDHARY Jun 02, 2019 12:07
--- NOTE | 2019-06-02 12:20 | DS ---
Date/Time of Note Date/Time of Note DATE: 06/02/19 TIME: 12:08 Discharge Summary Admission/Discharge Info Admit Date/Time May 08, 2019 at 23:21 Discharge Date/Time Discharge Diagnosis #Encephalopathy-had been slowly improving the last few days as patient answers slightly more questions now in Vietnamese. MRI brain earlier showed several new and old infarcts concerning for central embolic source. There there apparently was small frontal bleed which may be hemorrhagic infarct- TTE done without evidence of vegetations or thrombus - HIV negative - No concern for infectious meningitis based on LP, patient presently off antibiotics. Repeat head CT on May 20 showed some improvement in the frontal bleed- May have been due to uncontrolled hypertension. # Hypertension: Much improved the last few days- Appreciate endocrinology consult, patient currently being worked up for other possible etiologies of secondary hypertension such as hyperaldosteronism, also considering pheochromocytoma and renal artery stenosis (although these are less likely). #Upper extremity thrombosis- L upper superficial vein thrombosis involving cephalic vein-on PO Eliquis 2.5 mg twice daily, no aspirin. #GARDENIA - Likely due to iatrogenic vancomycin toxicity-resolved #Respiratory failure- Intubated earlier this admission due to poor mental status, but self extubated on May 15, 2019- Now resolved Patient Condition: Stable Procedures MRI abd: IMPRESSION: 1. Hepatosplenomegaly and mild hepatic steatosis. 2. No evidence of adrenal nodule or mass. 3. No evidence of bowel obstruction, mass, lymphadenopathy, or acute inflammatory process. Hx of Present Illness 39-year-old female with unknown past medical history who comes in today with decreased p.o. intake. Patient's also been vomiting for the last 3 to 4 days and also been having weakness symptoms. No significant mention is obtained from the ER documentation as the patient is presently unable to provide full HPI at this time. When she came in she was found with heart rate in the 110s and she was hypotensive and received 3 L of normal saline IV fluid in the ER. Today she had a head CT performed that initially showed signs of a left frontal lobe intracranial hemorrhage, along with diffuse, pronounced white matter hypodensity in the supratentorial brain, most prominent in the frontal and parietal lobes. Findings are nonspecific, but can be seen with an infectious or inflammatory process, per radiologist. Based on this information a call was made out to the neurosurgeon for further input. Patient also received broad-spectrum antibiotics as there is also concern, based on neurosurgery assessment, that this in fact may be some kind of meningitis or encephalitis. Patient also now ordered for IV steroids and rifampin as well. Full review of systems cannot be obtained at this time. Hospital Course Patient was initially admitted to intensive care unit, seen by multiple specialists during this hospital stay including neurology, pulmonary, endocrinology, renal, infectious disease, and briefly neurosurgery team. Patient was initially treated for hypertensive urgency/emergency with nicardipine drip. She also developed respiratory failure and had to be intubated. MRI brain was performed and showed showed several new and old infarcts concerning for central embolic source. There apparently was small frontal bleed which may have been a hemorrhagic infarct-however a TTE was done without evidence of vegetations or thrombus - HIV negative - No concern for infectious meningitis based on LP patient was initially started on antibiotics but then taken off per ID recommendations. Repeat head CT on May 20 showed some improvement in the frontal bleed- May have been due to uncontrolled hypertension. In the meantime patient self extubated herself and remained without any further respiratory failure so no further interventions were required. Eventually she was taken off the nicardipine drip and placed on many different p.o. blood pressure medicines to help better control her blood pressure. Endocrinology team was consulted and patient currently being worked up for other possible etiologies of secondary hypertension such as hyperaldosteronism, also considering pheochromocytoma and renal artery stenosis (although these are less likely). Patient has been out of the intensive care unit now for over a week, slowly working with physical therapy and slowly recovering as far as her mental status and lethargy. She is tolerating diet. Vital signs are stable as well. She will be discharged to correction facility later today in improved condition. See printed medicine reconciliation sheet for full list of discharge medications. Home Meds Reported Medications Lisinopril* (Lisinopril*) 20 Mg Tablet, 20 MG PO BID, #30 TAB 05/09/19 Hydralazine Hcl* (Hydralazine Hcl*) 100 Mg Tablet, 100 MG PO Q8, #90 TAB 05/09/19 Glimepiride* (Glimepiride*) 2 Mg Tablet, 2 MG PO WITH BREAKFAST, TAB 05/09/19 Metformin Hcl* (Metformin Hcl*) 1,000 Mg Tablet, 1000 MG PO WITH BREAKFAST DINNE, #60 TAB 05/09/19 Famotidine* (Famotidine*) 20 Mg Tablet, 20 MG PO BID, #60 TAB 05/09/19 Primary Care Provider Care Physician No Primary Time spent on discharge: > 30 minutes Pending Labs Laboratory Tests Test 06/01/19 12:45 06/01/19 17:35 06/01/19 21:17 06/02/19 04:55 Bedside 133 110 130 Glucose mg/dL (70-220) mg/dL (70-220) mg/dL (70-220) Sodium Level 139 mmol/L (135-14 4) Potassium 4.7 Level mmol/L (3.5-5. 1) Chloride Level 103 mmol/L (97-110 ) Carbon Dioxide 23 Level mmol/L (21-31) Anion Gap 13 (5-13) Blood Urea 36 Nitrogen mg/dl (7-20) Creatinine 1.16 mg/dl (0.44-1. 00) Est Glomerular 51 Filtrat mL/min (>60) Rate mL/min Glucose Level 108 mg/dl (70-220) Calcium Level 10.3 mg/dl (8.4-10. 2) Phosphorus 4.5 Level mg/dl (2.5-4.9 ) Magnesium 1.9 Level mg/dl (1.7-2.5 ) Test 06/02/19 04:56 06/02/19 08:51 White Blood 5.0 Count 10^3/ul (4.8-10 .8) Red Blood 5.56 Count 10^6/ul (4.20-5 .40) Hemoglobin 15.7 g/dl (12.0-16.0 ) Hematocrit 48.2 % (37.0-47.0) Mean 86.7 Corpuscular fl (82.0-101.0) Volume Mean 28.2 Corpuscular pg (29.0-33.0) Hemoglobin Mean 32.6 Corpuscular g/dl (32.0-37.0 Hemoglobin Conc ) ent Red Cell 13.4 Distribution % (11.5-14.5) Width Platelet Count 292 10^3/UL (140-41 5) Mean Platelet 11.1 Volume fl (7.4-10.4) Immature 0.200 Granulocytes % % (0.001-0.429) Neutrophils % 49.9 % (39.0-77.0) Lymphocytes % 35.2 % (15.0-51.0) Monocytes % 8.9 % (0.0-11.0) Eosinophils % 5.0 % (0.0-7.0) Basophils % 0.8 % (0.0-2.0) Nucleated Red 0.0 Blood Cells % /100WBC (0.0-0. 0) Immature 0.010 Granulocytes # 10^3/ul (0.0-0. 031) Neutrophils # 2.5 10^3/ul (1.6-7. 5) Lymphocytes # 1.8 10^3/ul (0.8-2. 9) Monocytes # 0.5 10^3/ul (0.3-0. 9) Eosinophils # 0.3 10^3/ul (0.0-0. 5) Basophils # 0.0 10^3/ul (0.0-0. 1) Nucleated Red 0.0 Blood Cells # 10^3/ul (0.0-0. 0) Bedside 99 Glucose mg/dL (70-220) DAMIEN CHOUDHARY Jun 02, 2019 12:19
[2019-06-02 14:28] VITALS: BP 131/72; PULSE 68; RESP 17
== END 2019-06-02 15:45 | DRG 64 ==
LOC: E/R 19:01 → ICU 23:21 → EDBEDREQ 05-09 10:25 → TEL 05-23 19:36 → 2NE 05-29 17:15
PROVIDERS: ADMIT Hospitalist; ATTEND Hospitalist
PROC: 5A1955Z Respiratory Ventilation, Greater than 96 Consecutive Hours (ICD-10-PCS; 2019-05-09)
PROC: 0BH18EZ Insertion of Endotracheal Airway into Trachea, Via Natural or Artificial Opening Endoscopic (ICD-10-PCS; 2019-05-09)
PROC: 009U3ZX Drainage of Spinal Canal, Percutaneous Approach, Diagnostic (ICD-10-PCS; principal; 2019-05-10)
PROC: 02HV33Z Insertion of Infusion Device into Superior Vena Cava, Percutaneous Approach (ICD-10-PCS; 2019-05-16)
DX: I61.4 Nontraumatic intracerebral hemorrhage in cerebellum (principal); J96.00 Acute respiratory failure, unspecified whether with hypoxia or hypercapnia; N17.9 Acute kidney failure, unspecified; Z68.42 Body mass index [BMI] 45.0-49.9, adult; G93.49 Other encephalopathy; I82.612 Acute embolism and thrombosis of superficial veins of left upper extremity; I16.1 Hypertensive emergency; R65.10 Systemic inflammatory response syndrome (SIRS) of non-infectious origin without acute organ dysfunction; E87.0 Hyperosmolality and hypernatremia; I10 Essential (primary) hypertension; E66.01 Morbid (severe) obesity due to excess calories; E87.6 Hypokalemia; R40.2430 Glasgow coma scale score 3-8, unspecified time; E11.9 Type 2 diabetes mellitus without complications; E87.70 Fluid overload, unspecified; E83.42 Hypomagnesemia; E78.5 Hyperlipidemia, unspecified; T36.8X5A Adverse effect of other systemic antibiotics, initial encounter; Z79.84 Long term (current) use of oral hypoglycemic drugs
CPT/HCPCS: 31500; 36569; 36600; 70450; 70496; 70498; 70551; 70553; 71045; 74183; 74230; 76775; 76937; 80048; 80053; 80061; 80202; 80307; 81001; 81003; 81240; 82043; 82140; 82382; 82384; 82533; 82607; 82803; 82945; 82962; 83036; 83605; 83735; 83890; 84100; 84155; 84157; 84300; 84425; 84439; 84443; 84484; 85025; 85300; 85302; 85305; 85610; 85613; 85651; 85730; 86038; 86147; 86592; 86703; 86803; 87070; 87081; 87086; 87340; 89051; 92507; 92523; 92526; 92610; 92611; 93005; 93306; 93971; 94002; 94003; 94770; 95819; 97110; 97163; 97167; 97530; 97535; C9113; J0133; J0360; J0692; J0696; J1100; J1630; J1650; J1815; J1940; J1953; J2060; J2270; J2405; J3010; J3370; J3475; J3480; J7030; J7040; J7050; J7120; Q9967

== ENCOUNTER 2019-07-21 09:16 | Inpatient (IN) | payer MEDICAID, OTHER ==
[~2019-07-21] VITALS: Ht 154.9 cm; Wt 97.4 kg
[~2019-07-21 09:16] MED LIST: ACET-2047 PO; ASPI-699 PO; ATOR-2 PO; CAR8 PO; DEXT1DRO6 BOTH EYES; DOCU-144 PO; FAMO20TA18 PO; GLIM2TAB PO; GLUC1KIT IJ; HYDR100T25 PO; LANT3I SC; LISI-471 PO; LISI40TA3 PO; MAGN400O19 PO; METF100010 PO; METO-407 PO; MULT-105 PO; NIFE90TA11 PO; NITR0.4T32 SL; ONDA8TAB9 PO; POLY17PO6 PO; SENN-120 PO; SPIR25TA PO; SS SC; TRAM50TA PO; ZINC30TA2 PO
[2019-07-21] MEDS ORDERED: SOD CHLORIDE 0.9% 100 ML ONE (09:52)
[2019-07-21] MEDS ORDERED: IODIXANOL LOCM 100 ML BTL ONE (09:52)
[2019-07-21] MEDS ORDERED: NITROGLYCERIN (SL) 0.4 MG TAB SL PRN (14:30)
[2019-07-21] MEDS: MAGNESIUM HYDROXIDE 30ML CUP PO SCH (14:30)
[2019-07-21] MEDS ORDERED: traMADol 50 MG TAB PO PRN (14:30)
[2019-07-21] MEDS ORDERED: LORAZEPAM 0.5 MG TAB PO PRN (14:30)
[2019-07-21] MEDS ORDERED: ONDANSETRON 4 MG INJ IV PRN (14:30)
[2019-07-21] MEDS ORDERED: ZOLPIDEM 5 MG TAB PO PRN (14:30)
[2019-07-21] MEDS ORDERED: ACETAMINOPHEN 325 MG TAB PO PRN (14:30)
[2019-07-21] MEDS ORDERED: GLUCOSE GEL 15 GRAM TUBE BUCCAL PRN (15:30)
[2019-07-21] MEDS ORDERED: DEXTROSE 50% 50 ML SYRINGE IV PRN ×2 (15:30)
[2019-07-21] MEDS ORDERED: GLUCAGON 1 MG INJ IM PRN (15:30)
[2019-07-21] MEDS ORDERED: GLUCOSE GEL 15 GRAM TUBE PO PRN ×2 (15:30)
[2019-07-21 16:57] VITALS: Ht 154.9 cm; Wt 97.4 kg
[2019-07-21 16:58] VITALS: BP 124/69; PULSE 91; RESP 18
[2019-07-21 19:56] VITALS: BP 131/87; PULSE 90; RESP 18
[2019-07-21] MEDS: INSULIN GLARGINE [LANTus] (100 UNITS/ML) SYG SC SCH (21:00)
[2019-07-21] MEDS: ARTIFICIAL TEARS 15 ML OPH BOTH EYES SCH (21:00)
[2019-07-21] MEDS ORDERED: DEXTRAN BOTH EYES SCH (21:00)
[2019-07-21] MEDS ORDERED: HYPROMELLOSE BOTH EYES SCH (21:00)
[2019-07-21] MEDS: DOCUSATE SODIUM 100 MG CAP PO SCH (21:20)
[2019-07-21] MEDS: FAMOTIDINE 20 MG TAB PO SCH (21:20)
[2019-07-21] MEDS: ATORVASTATIN 80 MG TAB PO SCH (21:20)
[2019-07-21] MEDS: SENNA TAB PO SCH (21:20)
[2019-07-21] MEDS: DOXAZOSIN 4 MG TAB PO SCH (21:21)
[2019-07-21] MEDS: METOPROLOL 100 MG TAB PO SCH (21:22)
[2019-07-21 23:34] VITALS: BP 125/76; PULSE 80; RESP 18
[2019-07-22] MEDS: INSULIN GLARGINE [LANTus] (100 UNITS/ML) SYG SC SCH ×2 (00:39→21:00)
[2019-07-22 04:00] VITALS: BP 119/76; PULSE 77; RESP 18
[2019-07-22 07:12] VITALS: BP 122/72; PULSE 78; RESP 18
[2019-07-22] MEDS: ARTIFICIAL TEARS 15 ML OPH BOTH EYES SCH ×3 (09:00→21:08)
[2019-07-22] MEDS: MULTIVITAMINS/MINERALS TAB PO SCH (09:24)
[2019-07-22] MEDS: POLYETHYLENE GLYCOL 17 GM PACKET PO SCH (09:24)
[2019-07-22] MEDS: NIFEdipine (XL) 90 MG TAB PO SCH (09:24)
[2019-07-22] MEDS: DOXAZOSIN 4 MG TAB PO SCH ×2 (09:25→20:49)
[2019-07-22] MEDS: SPIRONOLACTONE 25 MG TAB PO SCH (09:25)
[2019-07-22] MEDS: ZINC SULFATE 220 MG CAP PO SCH (09:25)
[2019-07-22] MEDS: LISINOPRIL 20 MG TAB PO SCH (09:25)
[2019-07-22] MEDS: DOCUSATE SODIUM 100 MG CAP PO SCH ×2 (09:26→21:01)
[2019-07-22] MEDS: METOPROLOL 100 MG TAB PO SCH ×2 (09:26→20:50)
[2019-07-22] MEDS: FAMOTIDINE 20 MG TAB PO SCH ×2 (09:26→21:01)
[2019-07-22] MEDS ORDERED: ASPIRIN (EC) 325 MG TAB PO ONE (11:00)
[2019-07-22 11:37] VITALS: BP 123/76; PULSE 73; RESP 18
[2019-07-22] MEDS ORDERED: MAGNESIUM SULFATE 1 GM/D5W 100 ML IVPB ONE (12:30)
[2019-07-22] MEDS: MAGNESIUM HYDROXIDE 30ML CUP PO SCH (13:50)
[2019-07-22 15:36] VITALS: BP 105/64; PULSE 73; RESP 18
[2019-07-22 20:00] VITALS: BP 98/60; PULSE 86; RESP 18
[2019-07-22] MEDS: MIRTAZAPINE 15 MG TAB PO SCH (21:01)
[2019-07-22] MEDS: SENNA TAB PO SCH (21:01)
[2019-07-22] MEDS: ATORVASTATIN 80 MG TAB PO SCH (21:01)
[2019-07-22 23:31] VITALS: BP 114/65; PULSE 77; RESP 18
[2019-07-23 04:00] VITALS: BP 115/65; PULSE 76; RESP 18
[2019-07-23 07:07] VITALS: BP 116/72; PULSE 88; RESP 18
[2019-07-23 08:44] VITALS: BP 132/73; PULSE 80
[2019-07-23] MEDS: DOCUSATE SODIUM 100 MG CAP PO SCH ×2 (08:49→21:00)
[2019-07-23] MEDS: ZINC SULFATE 220 MG CAP PO SCH (08:49)
[2019-07-23] MEDS: ARTIFICIAL TEARS 15 ML OPH BOTH EYES SCH ×3 (08:50→21:24)
[2019-07-23] MEDS: MULTIVITAMINS/MINERALS TAB PO SCH (08:50)
[2019-07-23] MEDS: LISINOPRIL 20 MG TAB PO SCH (08:50)
[2019-07-23] MEDS: NIFEdipine (XL) 90 MG TAB PO SCH (08:50)
[2019-07-23] MEDS: FAMOTIDINE 20 MG TAB PO SCH ×2 (08:51→21:26)
[2019-07-23] MEDS: METOPROLOL 100 MG TAB PO SCH ×2 (08:51→21:40)
[2019-07-23] MEDS: DOXAZOSIN 4 MG TAB PO SCH ×2 (08:51→21:25)
[2019-07-23] MEDS: SPIRONOLACTONE 25 MG TAB PO SCH (08:51)
[2019-07-23] MEDS: POLYETHYLENE GLYCOL 17 GM PACKET PO SCH (08:52)
[2019-07-23] MEDS: ASPIRIN (EC) 81 MG TAB PO SCH (08:52)
[2019-07-23 11:02] VITALS: BP 110/62; PULSE 66; RESP 18
[2019-07-23] MEDS: SOD CHLORIDE 0.9% 1,000 ML IV SCH (13:34)
[2019-07-23 15:51] VITALS: BP 114/63; PULSE 74; RESP 18
[2019-07-23] MEDS: MAGNESIUM HYDROXIDE 30ML CUP PO SCH (16:41)
[2019-07-23] MEDS: INSULIN ASPART [NOVOLOG] 3 ML PEN SC SCH ×2 (17:35→21:00)
[2019-07-23 19:38] VITALS: BP 108/54; PULSE 86; RESP 18
[2019-07-23] MEDS ORDERED: INSULIN GLARGINE [LANTus] (100 UNITS/ML) SYG SC SCH (20:00)
[2019-07-23] MEDS: ATORVASTATIN 80 MG TAB PO SCH (21:26)
[2019-07-23] MEDS: MIRTAZAPINE 15 MG TAB PO SCH (21:28)
[2019-07-23] MEDS: SENNA TAB PO SCH (21:28)
[2019-07-23] MEDS: HEPARIN 5,000 UNIT/1 ML VIAL SC SCH (21:30)
[2019-07-23] MEDS: INSULIN GLARGINE [LANTus] (100 UNITS/ML) SYG SC SCH (21:35)
[2019-07-24] VITALS (7 sets, daily range): BP systolic 117–139; BP diastolic 63–83; PULSE 67–89; RESP 18–20
[2019-07-24] MEDS: SOD CHLORIDE 0.9% 1,000 ML IV SCH ×2 (01:38→15:10)
[2019-07-24] MEDS: ACCU-CHEK XX SCH (02:09)
[2019-07-24] MEDS: INSULIN ASPART [NOVOLOG] 3 ML PEN SC SCH ×4 (08:00→21:00)
[2019-07-24] MEDS: SPIRONOLACTONE 25 MG TAB PO SCH (08:33)
[2019-07-24] MEDS: MULTIVITAMINS/MINERALS TAB PO SCH (08:34)
[2019-07-24] MEDS: DOXAZOSIN 4 MG TAB PO SCH ×2 (08:34→21:43)
[2019-07-24] MEDS: ASPIRIN (EC) 81 MG TAB PO SCH (08:34)
[2019-07-24] MEDS: FAMOTIDINE 20 MG TAB PO SCH ×2 (08:34→21:43)
[2019-07-24] MEDS: ZINC SULFATE 220 MG CAP PO SCH (08:34)
[2019-07-24] MEDS: NIFEdipine (XL) 90 MG TAB PO SCH (08:35)
[2019-07-24] MEDS: METOPROLOL 100 MG TAB PO SCH ×2 (08:35→21:50)
[2019-07-24] MEDS: HEPARIN 5,000 UNIT/1 ML VIAL SC SCH ×2 (08:44→21:48)
[2019-07-24] MEDS: ARTIFICIAL TEARS 15 ML OPH BOTH EYES SCH ×3 (09:00→21:42)
[2019-07-24] MEDS: DOCUSATE SODIUM 100 MG CAP PO SCH ×2 (09:00→21:43)
[2019-07-24] MEDS: POLYETHYLENE GLYCOL 17 GM PACKET PO SCH (09:00)
[2019-07-24] MEDS: MAGNESIUM HYDROXIDE 30ML CUP PO SCH (14:30)
[2019-07-24] MEDS: LISINOPRIL 10 MG TAB PO SCH (14:37)
[2019-07-24] MEDS: SENNA TAB PO SCH (21:00)
[2019-07-24] MEDS: MIRTAZAPINE 15 MG TAB PO SCH (21:43)
[2019-07-24] MEDS: ATORVASTATIN 80 MG TAB PO SCH (21:43)
[2019-07-24] MEDS: INSULIN GLARGINE [LANTus] (100 UNITS/ML) SYG SC SCH (21:46)
[2019-07-25] VITALS (10 sets, daily range): BP systolic 106–140; BP diastolic 60–88; PULSE 69–87; RESP 18–24
[2019-07-25] MEDS: ACCU-CHEK XX SCH (02:00)
[2019-07-25] MEDS: SOD CHLORIDE 0.9% 1,000 ML IV SCH (04:30)
[2019-07-25] MEDS: INSULIN ASPART [NOVOLOG] 3 ML PEN SC SCH ×4 (07:43→20:52)
[2019-07-25] MEDS: DOCUSATE SODIUM 100 MG CAP PO SCH ×2 (09:10→20:38)
[2019-07-25] MEDS: MULTIVITAMINS/MINERALS TAB PO SCH (09:10)
[2019-07-25] MEDS: DOXAZOSIN 4 MG TAB PO SCH ×2 (09:11→20:38)
[2019-07-25] MEDS: ZINC SULFATE 220 MG CAP PO SCH (09:11)
[2019-07-25] MEDS: FAMOTIDINE 20 MG TAB PO SCH ×2 (09:11→20:38)
[2019-07-25] MEDS: ASPIRIN (EC) 81 MG TAB PO SCH (09:11)
[2019-07-25] MEDS: SPIRONOLACTONE 25 MG TAB PO SCH (09:12)
[2019-07-25] MEDS: NIFEdipine (XL) 90 MG TAB PO SCH (09:12)
[2019-07-25] MEDS: LISINOPRIL 10 MG TAB PO SCH (09:12)
[2019-07-25] MEDS: METOPROLOL 100 MG TAB PO SCH ×2 (09:12→20:51)
[2019-07-25] MEDS: POLYETHYLENE GLYCOL 17 GM PACKET PO SCH (09:14)
[2019-07-25] MEDS: ARTIFICIAL TEARS 15 ML OPH BOTH EYES SCH ×3 (09:17→20:37)
[2019-07-25] MEDS: HEPARIN 5,000 UNIT/1 ML VIAL SC SCH ×2 (09:26→20:40)
[2019-07-25] MEDS ORDERED: KETAMINE (50 MG/ML) 10 ML VIAL ONE (12:43)
[2019-07-25] MEDS ORDERED: PROPOFOL 20 ML ONE (13:51)
[2019-07-25] MEDS ORDERED: LIDOCAINE 2% (SDV) 5 ML INJ ONE (13:51)
[2019-07-25] MEDS ORDERED: EPHEDrine 25 MG/5 ML SYG IV PRN (14:00)
[2019-07-25] MEDS ORDERED: LABETALOL HCL 20MG INJ IV PRN (14:00)
[2019-07-25] MEDS ORDERED: LEVALBUTEROL (NEB) 0.63 MG/3 ML AMP HHN PRN (14:00)
[2019-07-25] MEDS ORDERED: ATROPINE 1 MG/10 ML SYRINGE IV PRN (14:00)
[2019-07-25] MEDS ORDERED: ONDANSETRON 4 MG INJ IV PRN (14:00)
[2019-07-25] MEDS ORDERED: HYDROmorphONE 1 MG/5 ML IV SYRINGE IV PRN (14:00)
[2019-07-25] MEDS ORDERED: morphine 2 MG INJ IV PRN (14:00)
[2019-07-25] MEDS ORDERED: DIPHENHYDRAMINE 50 MG INJ IV PRN (14:00)
[2019-07-25] MEDS ORDERED: ALBUTEROL 0.083% (NEB) 2.5 MG/3 ML AMP HHN PRN (14:00)
[2019-07-25] MEDS ORDERED: FENTAnyl 50 MCG/ML VIAL IV PRN (14:00)
[2019-07-25] MEDS ORDERED: hydrALAzine 20 MG INJ IV PRN (14:00)
[2019-07-25] MEDS: MAGNESIUM HYDROXIDE 30ML CUP PO SCH (14:08)
[2019-07-25] MEDS ORDERED: SUCCINYLCHOLINE CHLORIDE 100 MG/5 ML SYG IV ONE (18:35)
[2019-07-25] MEDS: ATORVASTATIN 80 MG TAB PO SCH (20:37)
[2019-07-25] MEDS: INSULIN GLARGINE [LANTus] (100 UNITS/ML) SYG SC SCH (20:42)
[2019-07-25] MEDS: MIRTAZAPINE 15 MG TAB PO SCH (20:50)
[2019-07-25] MEDS: SENNA TAB PO SCH (20:52)
[2019-07-26] VITALS (7 sets, daily range): BP systolic 119–170; BP diastolic 66–93; PULSE 65–83; RESP 18–20
[2019-07-26] MEDS: ACCU-CHEK XX SCH (02:00)
[2019-07-26] MEDS: INSULIN ASPART [NOVOLOG] 3 ML PEN SC SCH ×4 (07:50→20:22)
[2019-07-26] MEDS: MULTIVITAMINS/MINERALS TAB PO SCH (09:21)
[2019-07-26] MEDS: DOCUSATE SODIUM 100 MG CAP PO SCH ×2 (09:21→20:20)
[2019-07-26] MEDS: POLYETHYLENE GLYCOL 17 GM PACKET PO SCH (09:21)
[2019-07-26] MEDS: ASPIRIN (EC) 81 MG TAB PO SCH (09:21)
[2019-07-26] MEDS: FAMOTIDINE 20 MG TAB PO SCH ×2 (09:22→20:19)
[2019-07-26] MEDS: SPIRONOLACTONE 25 MG TAB PO SCH (09:22)
[2019-07-26] MEDS: ZINC SULFATE 220 MG CAP PO SCH (09:23)
[2019-07-26] MEDS: DOXAZOSIN 4 MG TAB PO SCH ×2 (09:24→20:21)
[2019-07-26] MEDS: NIFEdipine (XL) 90 MG TAB PO SCH (09:26)
[2019-07-26] MEDS: HEPARIN 5,000 UNIT/1 ML VIAL SC SCH ×2 (09:29→20:36)
[2019-07-26] MEDS: METOPROLOL 100 MG TAB PO SCH ×2 (09:35→20:20)
[2019-07-26] MEDS: LISINOPRIL 10 MG TAB PO SCH (09:37)
[2019-07-26] MEDS: ARTIFICIAL TEARS 15 ML OPH BOTH EYES SCH ×3 (09:37→20:19)
[2019-07-26] MEDS: MAGNESIUM HYDROXIDE 30ML CUP PO SCH (15:21)
[2019-07-26] MEDS ORDERED: NYSTATIN 30 GM POWDER BTL TOP PRN (16:00)
[2019-07-26] MEDS: NYSTATIN 30 GM POWDER BTL TOP SCH (20:19)
[2019-07-26] MEDS: MIRTAZAPINE 15 MG TAB PO SCH (20:20)
[2019-07-26] MEDS: ATORVASTATIN 80 MG TAB PO SCH (20:20)
[2019-07-26] MEDS: SENNA TAB PO SCH (20:20)
[2019-07-26] MEDS: INSULIN GLARGINE [LANTus] (100 UNITS/ML) SYG SC SCH (20:32)
[2019-07-27] MEDS: ACCU-CHEK XX SCH (02:00)
[2019-07-27 03:34] VITALS: BP 107/64; PULSE 63; RESP 18
[2019-07-27 07:13] VITALS: BP 119/63; PULSE 73; RESP 19
[2019-07-27] MEDS: INSULIN ASPART [NOVOLOG] 3 ML PEN SC SCH ×3 (07:49→17:40)
[2019-07-27] MEDS: ARTIFICIAL TEARS 15 ML OPH BOTH EYES SCH ×2 (09:00→12:21)
[2019-07-27] MEDS: SPIRONOLACTONE 25 MG TAB PO SCH (09:03)
[2019-07-27] MEDS: ZINC SULFATE 220 MG CAP PO SCH (09:03)
[2019-07-27] MEDS: NYSTATIN 30 GM POWDER BTL TOP SCH (09:03)
[2019-07-27] MEDS: ASPIRIN (EC) 81 MG TAB PO SCH (09:03)
[2019-07-27] MEDS: POLYETHYLENE GLYCOL 17 GM PACKET PO SCH (09:03)
[2019-07-27] MEDS: LISINOPRIL 10 MG TAB PO SCH (09:04)
[2019-07-27] MEDS: MULTIVITAMINS/MINERALS TAB PO SCH (09:04)
[2019-07-27] MEDS: DOCUSATE SODIUM 100 MG CAP PO SCH (09:04)
[2019-07-27] MEDS: NIFEdipine (XL) 90 MG TAB PO SCH (09:04)
[2019-07-27] MEDS: FAMOTIDINE 20 MG TAB PO SCH (09:04)
[2019-07-27] MEDS: DOXAZOSIN 4 MG TAB PO SCH (09:04)
[2019-07-27] MEDS: METOPROLOL 100 MG TAB PO SCH (09:05)
[2019-07-27] MEDS: HEPARIN 5,000 UNIT/1 ML VIAL SC SCH (09:10)
[2019-07-27 14:13] VITALS: BP 102/60; PULSE 60
[2019-07-27] MEDS: MAGNESIUM HYDROXIDE 30ML CUP PO SCH (14:13)
[2019-07-27 15:10] VITALS: BP 119/66; PULSE 66; RESP 19
[2019-07-27 15:40] VITALS: BP 119/66; PULSE 66; RESP 19
[2019-07-27 19:42] VITALS: BP 116/67; PULSE 75; RESP 18
== END 2019-07-27 21:00 | DRG 65 ==
LOC: E/R 09:16 → 6WM 10:36 → SUATTDRO 14:21
PROVIDERS: ADMIT Family Medicine; ATTEND Family Medicine
PROC: B24BZZ4 Ultrasonography of Heart with Aorta, Transesophageal (ICD-10-PCS; principal; 2019-07-25 13:00)
DX: I63.9 Cerebral infarction, unspecified (principal); Z68.41 Body mass index [BMI] 40.0-44.9, adult; F33.9 Major depressive disorder, recurrent, unspecified; G81.94 Hemiplegia, unspecified affecting left nondominant side; I69.951 Hemiplegia and hemiparesis following unspecified cerebrovascular disease affecting right dominant side; N17.9 Acute kidney failure, unspecified; E11.9 Type 2 diabetes mellitus without complications; E66.9 Obesity, unspecified; Z86.718 Personal history of other venous thrombosis and embolism; Z87.891 Personal history of nicotine dependence; I12.9 Hypertensive chronic kidney disease with stage 1 through stage 4 chronic kidney disease, or unspecified chronic kidney disease; N18.9 Chronic kidney disease, unspecified; I34.0 Nonrheumatic mitral (valve) insufficiency; I36.1 Nonrheumatic tricuspid (valve) insufficiency; Z91.19 Patient's noncompliance with other medical treatment and regimen
CPT/HCPCS: 36415; 70450; 70496; 70498; 70551; 71045; 80048; 80061; 80307; 81001; 82550; 82553; 82962; 83036; 83735; 84100; 84484; 84703; 85025; 85610; 85730; 92507; 92523; 92526; 92610; 93005; 93312; 93325; 93970; 97110; 97116; 97162; 97530; J1644; J1815; J2405; J3475; J7030; Q9967